=== PATIENT | female | born 1950 | race Caucasian/White ===

== ENCOUNTER → 2017-09-03 10:24 | Outpatient (CLI) | payer MEDICARE, SELFPAY ==
[2017-09-03 10:33] LABS: Bacteria 0 SEEN /hpf (None Seen); Red Blood Cells-Urine 0 SEEN /hpf (0-5)
[2017-09-03 12:33] LABS: Thyroid Stim Hormone (TSH) 3.77 uIU/mL (0.358-3.74)
[2017-09-03 18:28] LABS: Color, Urine Yellow (Yellow); Glucose, Dipstick Normal (Normal); Ketone-Dipstick Negative (Negative); Leukocyte Esterase-Dipstick 25 /ul (Negative); Nitrite-Dipstick Negative (Negative); Occult Blood-Urine Negative /ul (Negative); Protein-Dipstick Negative (Negative); Urine Bilirubin Dipstick Negative (Negative); Urine Clarity Clear (Clear); Urine Urobilinogen Normal (Normal)
[2017-09-03 19:00] LABS: Squamous Epithelial Cells - UA 0-5 SEEN /hpf (5-10)
[2017-09-03 19:01] LABS: Hyaline Cast 0-5 SEEN /lpf (0-5)
[2017-09-03 19:02] LABS: Mucous, Urine 1+ /hpf (<or=2+)
[2017-09-03 19:03] LABS: Transitional Epithelial - Ur 0-5 SEEN /hpf (0-5); White Blood Cells 0-5 SEEN /hpf (0-5)
== END ==
PROVIDERS: Visit Provider Internal Medicine Rheumatology
DX: E03.9 Hypothyroidism, unspecified (principal); R39.89 Other symptoms and signs involving the genitourinary system
CPT/HCPCS: 36415; 81001; 84443

== ENCOUNTER → 2017-09-24 12:55 | Outpatient (CLI) | payer MEDICARE, SELFPAY ==
--- NOTE | 2017-09-24 12:57 | BI_ITS ---
MAMMOGRAPHY - BILATERAL SCREENING REASON FOR EXAM: Female, 67 years old. Routine annual screening examination. PERTINENT HISTORY: Non-contributory. TECHNIQUE: Digital bilateral breast anusha (3D mammographic acquisition) in the CC and MLO projections. 2-D mediolateral oblique (MLO) and craniocaudad (CC) views of both breasts were obtained. CAD: Full Field Digital Mammography with Computer Added Detection was performed. COMPARISON: Comparison is made with prior study dated July 10, 2016 and March 01, 2015. FINDINGS: Breast Composition: There are scattered areas of fibroglandular density. There are no dominant masses or suspicious calcifications. No other significant abnormalities are identified. There has been no significant change since the prior study. BI/SCREENING MAMM (CAD), BILAT IMPRESSION: Stable bilateral screening mammogram. Yearly follow-up mammogram recommended. (A) ASSESSMENT CATEGORY: BIRADS Category 1: Negative. A letter regarding these results will be sent to the patient by the facility within 30 days. Approximately 10% of breast cancers are not detected by mammography. A normal mammogram should not delay biopsy of a clinically suspicious abnormality. [id number] Electronically Signed: Yvon Hamlin MD at 8:28 EDT Tel [phone], Service support ,
== END ==
DX: Z12.31 Encounter for screening mammogram for malignant neoplasm of breast (principal)
CPT/HCPCS: 77063; 77067

== ENCOUNTER 2017-10-17 13:00 | Outpatient (RCR) | payer MEDICARE, SELFPAY ==
--- NOTE | 2017-09-10 15:29 | HP.PTEVAL_ITS ---
Patient's Visit Information ABEL MUÑOZ I is a 67 year old F referred to Physical Therapy by Lobo WARD.RMASON with a diagnosis of Balance Problems. Date of Evaluation: 09/10/17 Physical Therapist: Alondra St - Visit Plan Frequency: 2x /Week Duration: 6 Weeks Plan: 2X/ week for 6 weeks to test on the NeuroCom, balance, curb steps, stepping over objects, LE strengtheing with HEP. - Subjective Subjective: Pt reports that she is losing her balance a lot. SHe has to lean against something or the railing especially if carrying something on the stairs. She has tripped several times and almost has gone down several times. Pt reports that she is worried about herself. On Sunday it was difficult for her to stand up from her chair and when she sat down it seemed like she just plopped. She is losing leg strength. SHe is not dizzy. She feels like her feet move to fast and she loses balancce or when going down a grade her top part is ahead of her feet. This has been a very gradual things that is getting worse. She lives alone but son stays over 2-3 X/ week as pt just lost her in Jun. Bed and bath are on the upper floor. She still drives. Curb steps: she feels she can do them as long as not too high. Dr Newsome said that PT can figure out the balance thing. SHe has been trapped inside a lot this winter. Pt is fatigued a lot of the time. Scale -0-10 fear of falling is 8/10. She has fallen about 3 times at least in the last 6 months. She reports that she has full sensation in her feet. 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 - Objective Gait: Walks with decreased stride and decreased heel to toe gait pattern. Some slight veering. Stiars: up and down recip with use of the railing with decreased toe clearence. FGA: . Sit to stand: able without the use of her UE's for support. LE MMT: hip abd B 4-/5, hip flex B 4/5, knee ext B 4/5, B knee flex B 4/5, able to heel and toe raise with UE support. Tight gastroc and HS complex B. - Balance Scores Functional Gait Assessment Score: 15 % Disability: 50.0000 - Goals Goal 1:: I HEP Goal Time Frame: 4-6 Weeks Goal 2:: Test the pt on the NeuroCOm Goal Time Frame: 4-6 Weeks Goal 3:: Be able to walk with normal gait pattern without catching toe with gait. Goal Time Frame: 4-6 Weeks Goal 4:: Increase LE strength by 1/2 muscle grade to be able to get up out of low chairs easier Goal Time Frame: 4-6 Weeks - Rehabilitation Potential Rehabilitation Potential: Good - Anticipated Interventions Patient/Client Instruction: Educate patient on: Condition For the Purpose of:: To improve nutrient delivery to tissue, To improve muscle performance and motor function, To improve ability to perform ADL's, To increase tolerance to activity/condition/position, To improve performance and independence with ADL's, To improve ability of physical actions for home/ community/work/leisure, To improve gait and locomotor functions, To improve health of tissue, To improve balance, To improve safety with gait Therapeutic Exercise to Include: Strength training, Balance training, Body mechanics, Flexibilty training, Gait and locomotor training, Neuromotor development, Passive ROM, Active ROM For the Purpose of:: To improve nutrient delivery to tissue, To improve muscle performance and motor function, To improve ability to perform ADL's, To increase tolerance to activity/condition/position, To improve performance and independence with ADL's, To improve ability of physical actions for home/ community/work/leisure, To improve gait and locomotor functions, To increase flexibility/ROM, To improve endurance, To improve balance, To improve safety with gait Functional Training to Include: Gait training For the Purpose of:: To improve gait and locomotor functions, To improve safety with gait Thank you for the opportunity to evaluate your patient. For Medicare and Medicare HMO plans, please review the plan of care and approve it. It will need to be FAXED BACK to us at [phone] for Medicare purposes. Please let me know if there are questions or concerns regarding this plan of care. Physician Signature: Date:
--- NOTE | 2017-09-19 13:52 | HP.PTCOM ---
PT Communication Note 09/19/[address] Lobo Newsome , Thank you for the referral of Wilda Lyles to our clinic. She was tested on our NeuroCom Equitest System today and enclosed are the patients test results. On the Sensory Organization Test (SOT) the pt has good used of her somatosensory system to help her maintain her balance. She has a little trouble with the use of her visual and vestibular systems to help her maintain her balance. Her center of gravity alignment is posterior and to the right. The Motor Control Test (MCT) demonstrated that the pt had an overall good reaction time to external pertubations. On the Limits of Stability Test (LOS) her overall ability to weight shift was within normal limits. At this point in time, I will be seeing the pt 2X/ week for at least 4 weeks to work on vestibular and visual inputs as well as functional balance and LE strengthening. Sincerely, Alondra St Contact Information
--- NOTE | 2017-10-17 13:29 | HP.PTDCSUM_ITS ---
HP - PT D/C Summary It has been my pleasure to treat ABEL MUÑOZ under orders from Lobo Newsome , for the diagnosis of Balance Problems for a total of 10 visit(s). Discharge Date: 10/17/17 Please see the following information for a summary of their discharge status. - Subjective Subjective: Some weeks are better than other. This week has been a good week. She is practicing going up and down stairs and she not banging into the wall anymore. She feels more confident with walking. 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 Pt reports that every once in awhile she still catches her toe with gait. She feels her confidence with balance has improved by 50% - Pain R shoulder Pain Intensity (Out of 10): 0 - Overall Improvement % Improvement: 75 - Objective Objective/Function: LE MMT: L hip abd 4-/5 and R 4+/5, B hip flex 4+/5, B knee ext and knee flex 4+/5 - Goals Goal 1:: I HEP Goal Progress: Goal Met Goal 2:: Test the pt on the NeuroCOm Goal Progress: Goal Met Goal 3:: Be able to walk with normal gait pattern without catching toe with gait. Goal Progress: Progressing Goal 4:: Increase LE strength by 1/2 muscle grade to be able to get up out of low chairs easier Goal Progress: Goal Met Goal 5:: Increase confidence with balance by 50% Goal Progress: Goal Met - Plan Plan: DC PT to HEp and gym memebership - D/C Information Discharge Comments: DC PT to [facility] program and HEP. If there are questions or concerns regarding this patient's physical therapy, please feel free to call me at [phone]. Thank you for the referral of this patient. Sincerely, Alondra St
== END 2017-10-17 19:00 | disposition home or self-care (01) ==
LOC: PT 13:00
DX: R27.9 Unspecified lack of coordination (principal)
CPT/HCPCS: 97110; 97161; 97530; 97750

== ENCOUNTER → 2018-04-24 10:50 | Outpatient (CLI) | payer MEDICARE, SELFPAY ==
[2018-04-24 12:12] LABS: Absolute Lymphocyte Count 2.34 X10^3/ul (0.83-4.51); Absolute Neutrophil Count 5.4 X10^3/uL (2.0-7.7); Basophil# 0.03 X10^3/uL; Basophil% 0.3 % (0-1); Eosinophil# 0.26 X10^3/uL; Hematocrit 44.1 % (37-47); Hemoglobin 14.1 g/dl (12.0-15.0); Lymphocyte # 2.34 X10^3/ul (4.0); Lymphocyte % 26.9 % (19-41); Mean Corpuscular Hgb 29.1 pg (27.0-32.0); Mean Corpuscular Volume 91.1 fL (81-99); Mean Platelet Vol. 10.4 fl (6.2-12.0); Monocyte# 0.61 X10^3/uL; Neutrophil # 5.44 X10^3/uL (2.7-7.7); Neutrophil % 62.6 % (47-70); Platelet Count 326 K/mm3 (150-450); RBC Distribution Width CV 14.8 % (11.6-14.6); RBC Distribution Width SD 48.8 fl (35.1-43.9); Red Blood Count 4.84 M/mm3 (4.2-5.4); White Blood Count 8.7 K/mm3 (4.4-11.0)
[2018-04-24 12:23] LABS: POSITIVE COUNT NO; POSITIVE DIFFERENTIAL NO; POSITIVE MORPHOLOGY NO
[2018-04-24 12:45] LABS: ALB/GLOB Ratio 0.9 RATIO (0.9-2.4); AST(SGOT) 15 U/L (15-37); Alanine Aminotransfer ALT/SGPT 24 U/L (13-56); Albumin, Serum 3.3 g/dL (3.2-5.0); Alkaline Phosphatase 87 U/L (45-117); Anion Gap 7 (5-15); BUN 14 mg/dL (7-18); BUN/Creat Ratio 16.8 RATIO (10-20); Calcium,Total 8.6 mg/dL (8.5-10.1); Chloride 106 mmol/L (98-107); Cholesterol 213 mg/dL (200); Creatinine, Serum 0.84 mg/dL (0.55-1.02); EST Glomerular Filtration Rate 72 mL/min (>60); Est Glom Filt Rate - Afr Amer 87 mL/min (>60); Globulin 3.5 g/dL (2.2-4.2); Glucose 74 mg/dL (74-106); High Density Lipoprotein 76 mg/dL; Potassium 4.4 mmol/L (3.5-5.1); Protein, Total 6.8 g/dL (6.4-8.2); Sodium Level 142 mmol/L (136-145); Thyroid Stim Hormone (TSH) 1.41 uIU/mL (0.358-3.74); Triglycerides 108 mg/dL; Very Low Density Lipoprotein 22 mg/dL (5-40)
== END ==
PROVIDERS: Referring Provider Family Medicine; Visit Provider Family Medicine
DX: Z00.00 Encounter for general adult medical examination without abnormal findings (principal); E03.9 Hypothyroidism, unspecified; M18.11 Unilateral primary osteoarthritis of first carpometacarpal joint, right hand
CPT/HCPCS: 36415; 80053; 80061; 84443; 85025; 97140; 97166

== ENCOUNTER 2018-05-30 09:00 | Outpatient (RCR) | payer MEDICARE, SELFPAY ==
--- NOTE | 2018-04-24 15:45 | HP.OTEVAL ---
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 Date of Evaluation: 04/24/18 Occupational Therapist: Kathryn Kilgore, SATHISH/Kolton, CHT - Subjective Subjective: pt. arrives after CMC arthroplasty. pt. had sx on 2017, so is now 5 wks. post-op. pt. reports that prior to sx it was difficult to complete any grasping motions for long periods of time. pt. specifically reported that peeling potatoes and sweeping were difficult prior to the sx. pt. arrived wearing splint. - Pain R wrist/hand 0 Pain Intensity Range: 0, 1, 2, 3, 4, 5, 6, 7, 8 - Objective Objective/Observation: some swelling through the dorsal aspect of hand - ROM Wrist: 40/45 of R, 80/60 of L MP: 0/35 of R, 0/70 of L IP: 0/55 of R, 0/68 of L ROM Comments: no pain with movement - Strength Utility Repairer: NT d/t 5 wks. post-op Lateral Pinch: NT d/t 5 wks. post-op Tripod Pinch: NT d/t 5 wks. 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 by completing strengthening exercises and stretches in order to complete BADL?s and IADL?s. Patient will improve lateral and tripod grasps by 10 lbs. by completing strengthening and stretching exercises in order to complete BADL?s and IADL?s. Goal:: Patient will increase ROM in MP/IP joint of R thumb in order to make a full composite fist by completing strengthening and stretching exercises in order to complete BADL?s and IADL?s. Patient will increase ROM in R wrist by 15 degrees for increased I with BADL's and IADL's. Goal:: Patient will have decreased swelling and report overall decrease in pain of <4 in order to complete BADL?s and IADL?s. Goal:: Patient will demo understanding of joint protection and ECM recommendations for increase I with BADL?s and IADL?s. Goal:: Patient will demo understanding of CMC arthroplasty protocol for increased I with BADL's and IADL's. - Rehabilitation General Assessment: Patient presents after having CMC arthroplasty of the abductor pollicis longus, FXR, intrinsics, and R wrist extensor d/t pt.having unilateral Primary OA 1st Carpomc of R hand. Patient presents today with decreased strength, ROM, increased pain, and decreased ability to complete BADL's and IADL's. pt. will benefit from OT services 2x/wk for 4 wks. Today pt. was educated about exercises she can complete at home, edema management, skin care, and wearing brace at home. Rehabilitation Potential: Good - Anticipated Interventions Anticipated Interventions: A/AAROM/PROM, Strengthening, Triggerpoint Release, Modalities, Orthoses, Joint Protection/Energy Conservation, Ergonomic Education, ADL Training, Home Program - Visit Plan Frequency: 2x /Week Duration: 4 Weeks TEXT: Thank you for the opportunity to evaluate your patient. For Medicare and Medicare HMO plans, please review the plan of care and approve it. It will need to be FAXED BACK to us at [phone] for Medicare purposes. Please let me know if there are questions or concerns regarding this plan of care. Physician Signature: Date:
--- NOTE | 2018-05-10 07:53 | HP.OTREVAL ---
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 Please see the progress note below for an update on the occupational therapy plan of care! Subjective: pt. arrives and reports that fluidotherapy was helpful and that she is slightly nervous about not wearing a brace anymore. Objective/Function: pt. reported that she is not having pain any longer and has started the strengthening process. patient demo ability to squeeze light theraputty. patient is progressing and starting to complete more functional tasks at home. pt. educated on use of comfort cool and CMC brace for home use. Plan Frequency: 2x /Week Duration: 4 Weeks Plan: cont HEP. theraputty (playdoh). 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 by completing strengthening exercises and stretches in order to complete BADL?s and IADL?s. Patient will improve lateral and tripod grasps by 10 lbs. by completing strengthening and stretching exercises in order to complete BADL?s and IADL?s. Goal:: Patient will increase ROM in MP/IP joint of R thumb in order to make a full composite fist by completing strengthening and stretching exercises in order to complete BADL?s and IADL?s. Patient will increase ROM in R wrist by 15 degrees for increased I with BADL's and IADL's. Goal:: Patient will have decreased swelling and report overall decrease in pain of <4 in order to complete BADL?s and IADL?s. Goal:: Patient will demo understanding of joint protection and ECM recommendations for increase I with BADL?s and IADL?s. Goal:: Patient will demo understanding of CMC arthroplasty protocol for increased I with BADL's and IADL's. Anticipated Interventions Anticipated Interventions: A/AAROM/PROM, Strengthening, Triggerpoint Release, Modalities, Orthoses, Joint Protection/Energy Conservation, Ergonomic Education, ADL Training, Home Program Please do not hesitate to contact me at [phone] by phone or if you have questions or concerns regarding this new plan of care! Sincerely, Kathryn Kilgore, OTR/L, CHT
--- NOTE | 2018-08-05 14:52 | HP.OT.NRP ---
HP - Discharge Summary - Patient Information ABEL MUÑOZ was seen in my office for initial evaluation on 04/24/18. The following Plan of Care was established for this patient: Initial Frequency: 2x /Week Initial Duration: 4 Weeks Plan: cont HEP. theraputty (playdoh). squeeze wash rags - Anticipated Interventions Anticipated Interventions: A/AAROM/PROM, Strengthening, Triggerpoint Release, Modalities, Orthoses, Joint Protection/Energy Conservation, Ergonomic Education, ADL Training, Home Program This patient was last seen in our office 05/30/18. Pertinent comments regarding their Occupational therapy will appear below: Pt was seen for 11 OT sessions following a CMC arthroplasty. pt progressed well and PRE were initiated. Pt demo understanding of her HEP. pt has not scheduled any further apts. pt is d/c at this time due to timelapse in services. At this point I will be discontinuing this patient from occupational therapy. I would be happy to see this patient again in the future if found appropriate by the physician. Thank you! Kathryn Kilgore, OTR/L, CHT
== END 2018-05-30 19:00 | disposition home or self-care (01) ==
LOC: OT 09:00
PROVIDERS: Referring Provider Orthopaedic Surgery; Visit Provider Orthopaedic Surgery
DX: M18.11 Unilateral primary osteoarthritis of first carpometacarpal joint, right hand (principal)
CPT/HCPCS: 97110; 97140; 97166; 97168; 97530

== ENCOUNTER 2018-07-29 10:53 | Emergency (ER) | payer MEDICARE, SELFPAY ==
[2018-07-29 10:54] VITALS: BP 125/89; PULSE 77; RESP 16; TEMP 37.2; O2SAT 98; BMI 33.3
--- NOTE | 2018-07-29 12:03 | ED.DCSUM_ITS ---
- ER Visit Summary Date of Service: 07/29/18 Chief Complaint: Bilateral leg pain History of Present Illness: The patient is a 68 F who presents for 2 weeks of bilateral lower leg pain, worse for the last 2 days. Patient states yesterday she cannot stand for more than 2 minutes at work. She was also having pain in her lower back. Since yesterday patient has had a cough and has felt hot. She went to urgent care and was told she had a fever of 100.9 and referred to the emergency department for further workup. Patient has been on Bactrim and Keflex from a left ring finger paronychia since July 22. She is currently still on antibiotics. She did get the flu shot this year. She denies any chest pain, URI symptoms other than the cough, abdominal pain, nausea or vomiting, diarrhea, urinary symptoms. Patient has history of osteoarthritis but states her leg pain seems more diffuse than just the joints. Physical Examination: Vital signs: afebrile, hemodynamically stable, no hypoxia on room air General: well nourished, well developed, in no distress Skin: warm, dry, no rash, no pallor HEENT: normocephalic and atraumatic; PERRL, EOMI, moist mucous membranes Cardiovascular: regular rate and rhythm without murmurs, no peripheral edema, 2+ pulses all distal extremities Respiratory: No increased work of breathing, lungs are clear to auscultation bilaterally, no rales, rhonchi or wheezing Abdominal: Abdomen is soft, nontender with normoactive bowel sounds, no guarding or rebound, no masses Back: No midline deformities or tenderness. No paraspinal tenderness. MSK: Moves all extremities, no deformities, well-healed surgical incisions over both knees, no joint erythema, induration, warmth, or painful range of motion. Lower extremity musculature is nontender to palpation. Normal strength Neuro: Awake and alert, oriented ?4. No facial droop, sensation and motor function intact and symmetric Test Results: Microbiology Past 72 Hours 07/29/18 12:05 Mucosa - Nose Influenza Types A,B Direct FA (NOAH) - Final Influenzae A Laboratory Results 07/29/18 12:10: WBC 7.0, RBC 4.43, Hgb 12.6, Hct 39.5, MCV 89.2, MCH 28.4, MCHC 31.9 L, RDW 14.3, RDW Differential 46.9 H, Plt Count 260, MPV 10.2, Immature Gran % (Auto) 0.700, Neut % (Auto) 83.5 H, Lymph % (Auto) 6.2 L, Woodward % (Auto) 6.0, Eos % (Auto) 3.3, Baso % (Auto) 0.3, Absolute Neuts (auto) 5.8, Absolute Lymphs (auto) 0.43 L, Total Counted Not Reportable, Differential Comment COMMENT, ESR 22 07/29/18 12:10: Sodium Cancelled, Potassium Cancelled, Chloride Cancelled, Carbon Dioxide Cancelled, Anion Gap Cancelled, BUN Cancelled, Creatinine Cancell ed, Estim Creat Clear Calc Cancelled, Est GFR (MDRD) Af Amer Cancelled, Est GFR (MDRD) Non-Af Cancelled, BUN/Creatinine Ratio Cancelled, Glucose Cancelled, Calcium Cancelled, C-React Prot Ext Range Cancelled 07/29/18 12:20: Urine Color Yellow, Urine Clarity Clear, Urine pH 6.0, Ur Specific Horner 1.020, Urine Protein 30 H, Urine Glucose (UA) Normal, Urine Ketones 5 H, Urine Occult Blood 25 H, Urine Nitrite Negative, Urine Bilirubin 1 H, Urine Urobilinogen Normal, Ur Leukocyte Esterase 25 H, Urine RBC 0-5 SEEN, Urine WBC 0 SEEN, Ur Squamous Epith Cells 0 SEEN, Urine Bacteria RARE, Urine Mucus 0 SEEN, Urine Yeast RARE 07/29/18 12:45: Sodium 137, Potassium 4.6, Chloride 109 H, Carbon Dioxide 22.0, Anion Gap 6, BUN 11, Creatinine 0.88, Estim Creat Clear Calc 47.72, Est GFR (MDRD) Af Amer 83, Est GFR (MDRD) Non-Af 68, BUN/Creatinine Ratio 12.6, Glucose 79, Calcium 7.8 L, C-React Prot Ext Range 62.50 H Medications Given Discontinued Medications Sodium Chloride () 1,000 mls @ 1,000 mls/hr IV .Q1H ONE Stop: 07/29/18 12:56 Last Admin: 07/29/18 12:04 Dose: 1,000 mls/hr Oseltamivir Phosphate (Tamiflu) 75 mg PO X1 ONE Stop: 07/29/18 14:01 Emergency Department Course and Treatment: Patient presents with 2 days of worsening myalgias, subjective fever last night, and a cough that started last night. She was febrile at urgent care. Recheck in the emergency department showed a low-grade fever. Workup was performed, showing no leukocytosis, no lecture light derangements, urine negative for infection. Patient was swabbed for the flu and was positive for influenza A. Thus her worsening acute on chronic back and leg pain is likely myalgias associated with the flu. Patient received IV fluids and felt better. Since her symptom onset with the acute worsening was within 48 hours, patient was amenable to taking Tamiflu. First dose was given in the emergency the same. Discharged home. Treatment Plan: [] Disposition: [] Impression: Influenza A This note was generated with [employer] dictation software. It may contain incorrect words, spelling, and punctuation that were not noted in review of the chart prior to signing ED Disposition - Plan for ED Patient: Disposition: Home or Assisted Living Instructions: ED Flu Prescriptions: Oseltamivir Phosphate [Tamiflu] 75 mg PO BID #9 cap Referrals: Lobo Newsome [Primary Care Provider] - 1 Week if not improving Additional Instructions: You have the flu. Drink plenty of fluids to stay hydrated. Use [id number] pain medication as needed for fever and discomfort. Take the Tamiflu twice daily as prescribed. You were given the first dose in the emergency department, so he will take the next dose tomorrow morning. If you have any worsening of your condition or any new concerning symptoms, please return immediately to the emergency department for another evaluation.
[2018-07-29] MEDS: 0.9% Normal Saline 1,000 ML 1000 ML IV (12:04)
[2018-07-29 12:11] VITALS: TEMP 37.9
[2018-07-29 12:23] LABS: Erythrocyte Sedimentation Rate 22 mm/hr (0-30)
[2018-07-29 12:29] LABS: Absolute Lymphocyte Count 0.43 X10^3/ul (0.83-4.51); Absolute Neutrophil Count 5.8 X10^3/uL (2.0-7.7); Basophil# 0.02 X10^3/uL; Basophil% 0.3 % (0-1); Eosinophil# 0.23 X10^3/uL; Eosinophils% 3.3 % (0-5); Hematocrit 39.5 % (37-47); Hemoglobin 12.6 g/dl (12.0-15.0); Lymphocyte # 0.43 X10^3/ul (4.0); Lymphocyte % 6.2 % (19-41); Mean Corp Hgb Conc 31.9 g/gl (32-36); Mean Corpuscular Hgb 28.4 pg (27.0-32.0); Mean Corpuscular Volume 89.2 fL (81-99); Mean Platelet Vol. 10.2 fl (6.2-12.0); Monocyte# 0.42 X10^3/uL; Neutrophil # 5.82 X10^3/uL (2.7-7.7); Neutrophil % 83.5 % (47-70); Platelet Count 260 K/mm3 (150-450); RBC Distribution Width CV 14.3 % (11.6-14.6); RBC Distribution Width SD 46.9 fl (35.1-43.9); Red Blood Count 4.43 M/mm3 (4.2-5.4)
[2018-07-29 12:31] LABS: Differential Indicated SCAN CRITERIA MET; POSITIVE COUNT NO; POSITIVE DIFFERENTIAL YES; POSITIVE MORPHOLOGY NO
[2018-07-29 12:35] LABS: Mucous, Urine 0 SEEN /hpf (<or=2+); Squamous Epithelial Cells - UA 0 SEEN /hpf (5-10); White Blood Cells 0 SEEN /hpf (0-5)
[2018-07-29 12:39] LABS: Color, Urine Yellow (Yellow); Glucose, Dipstick Normal (Normal); Ketone-Dipstick 5 mg/dl (Negative); Leukocyte Esterase-Dipstick 25 /ul (Negative); Nitrite-Dipstick Negative (Negative); Occult Blood-Urine 25 /ul (Negative); Protein-Dipstick 30 mg/dl (Negative); Urine Clarity Clear (Clear); Urine Urobilinogen Normal (Normal)
--- NOTE | 2018-07-29 12:49 | ED.RN ---
POS FLU A CALLED FROM THE LAB. DR ORO AWARE
[2018-07-29 12:51] LABS: Urine Bilirubin Dipstick 1 mg/dL (Negative)
[2018-07-29 12:57] LABS: Bacteria RARE /hpf (None Seen); Red Blood Cells-Urine 0-5 SEEN /hpf (0-5)
[2018-07-29 12:58] LABS: Yeast-Urine RARE /hpf (None Seen)
[2018-07-29 13:12] VITALS: BP 158/65; PULSE 72; RESP 16; O2SAT 98
[2018-07-29 13:21] LABS: Anion Gap 6 (5-15); BUN 11 mg/dL (7-18); BUN/Creat Ratio 12.6 RATIO (10-20); Calcium,Total 7.8 mg/dL (8.5-10.1); Chloride 109 mmol/L (98-107); Creatinine, Serum 0.88 mg/dL (0.55-1.02); EST Glomerular Filtration Rate 68 mL/min (>60); Est Glom Filt Rate - Afr Amer 83 mL/min (>60); Estimated Creatinine Clearance 47.72 ml/min; Glucose 79 mg/dL (74-106); Potassium 4.6 mmol/L (3.5-5.1); Sodium Level 137 mmol/L (136-145)
[2018-07-29] MEDS: Oseltamivir Phosphate 75 MG Capsule PO (14:10)
== END 2018-07-29 14:12 | disposition home or self-care (01) ==
PROVIDERS: Emergency Provider Emergency Medicine
DX: J09.X2 Influenza due to identified novel influenza A virus with other respiratory manifestations (principal); M19.90 Unspecified osteoarthritis, unspecified site; F32.9 Major depressive disorder, single episode, unspecified; F41.9 Anxiety disorder, unspecified; E03.9 Hypothyroidism, unspecified; Z79.2 Long term (current) use of antibiotics; Z79.899 Other long term (current) drug therapy
CPT/HCPCS: 80048; 81001; 85025; 85652; 86140; 87086; 87804; 96360; 99284; J7030; A4216

== ENCOUNTER 2019-01-03 07:01 | Emergency (ER) | payer MEDICARE, SELFPAY ==
[2019-01-03] VITALS (7 sets, daily range): BP systolic 104–154; BP diastolic 50–85; PULSE 62–76; RESP 18–27; TEMP 37.2–38.6; O2SAT 93–100; BMI 34.4
--- NOTE | 2019-01-03 07:28 | EKG12_ITS ---
Test Reason : Blood Pressure : / mmHG Vent. Rate : 077 BPM Atrial Rate : 077 BPM P-R Int : 140 ms QRS Dur : 084 ms QT Int : 440 ms P-R-T Axes : 066 009 076 degrees QTc Int : 497 ms Normal sinus rhythm Nonspecific ST abnormality Prolonged QT Abnormal ECG Confirmed by NIELS CLEMENT, PÉREZ ([id number]), news assignment editor ZHENG MORAN ([id number]) on 01/06/2019 1:45:45 PM Referred By: МАРИНА Confirmed By:МАРИЯ BOWSER MD
[2019-01-03] MEDS: 0.9% Normal Saline 1,000 ML 999 ML IV (07:54)
[2019-01-03] MEDS: Ondansetron 4 MG/2 ML Vial IV (07:54)
[2019-01-03] MEDS: Acetaminophen 500 MG Tablet 1000 MG PO (07:54)
--- NOTE | 2019-01-03 08:13 | RAD_ITS ---
STUDY: X-RAY CHEST REASON FOR EXAM: Female, 68 years old. Substernal chest pain TECHNIQUE: PA and lateral views of the chest. COMPARISON: 02/22/2015 FINDINGS: EKG leads overlie the chest The lungs are clear and expanded. There is no demonstrated pleural abnormality. Normal size heart. Normal mediastinum and jyotsna. Normal visualized pulmonary arteries. Normal visualized aortic arch and descending thoracic aorta. There are diffuse degenerative changes of the visualized thoracic spine. Normal visualized ribs, clavicles, and shoulders. There is no demonstrated abnormality of the visualized soft tissue structures of the upper abdomen. RAD/Chest PA and Lateral IMPRESSION: No acute pulmonary process Electronically Signed: Satish Hobbs MD at 8:31 EDT , Service support ,
--- NOTE | 2019-01-03 08:46 | ED.VISSUMM ---
- ER Visit Summary Date of Service: 01/03/19 Chief Complaint: Vomiting History of Present Illness: The patient is a 68 F who presents emergency department with nausea and vomiting. Patient states that on Sunday she developed nausea vomiting diarrhea. She has had no diarrhea since. She states that nausea and vomiting has continued. Now she feels very anxious and panicky. She states she has generalized myalgias a slight cough and a fever. She notes a epigastric abdominal pain. She tells me it does not radiate. Physical Examination: Oral temperature 101.7 heart rate 62 respirations are 17 pulse ox 98% on room air blood pressure 115/85 Gen: Well-nourished well-developed Head: Normocephalic atraumatic Eyes: Perrl EOMI ENT: TMs clear no rhinorrhea moist mucous membranes Neck: Supple no lymphadenopathy no JVD nontender CVS: Regular rate rhythm no murmurs normal S1-S2 Respiratory: No distress clear to auscultation bilaterally chest nontender Abdomen: Soft oddly tender in the epigastrium nondistended normal bowel sounds no masses Back: Nontender Extremity: Nontender no edema Skin: Normal color no rash Neuro: alert orientated ?3 CN II-XII intact normal strength sensation reflexes gait cerebellar Psych: Anxious Test Results: EKG shows a normal sinus rhythm at a rate of 77. White count 10.3 with 81.1 neutrophils. Sodium 133. Liver lipase negative. Acid normal at 1.1. Chest x-ray showed no acute disease. CT the pelvis showed some atelectatic changes in the left lung otherwise negative. Emergency Department Course and Treatment: Tylenol Zofran and IV fluids. She is feeling better. No further vomiting. Body aches have stopped. Her anxiety is improved. He states now she feels fatigued. Her cough is very minimal and per her shallow. I think the changes seen on CT on the left lung is most likely atelectasis less likely to be infiltrate. Patient feels comfortable with antiemetics at home fever control and oral hydration. She will return if new symptoms are not improving. Impression: 1. Fever 2. Vomiting This note was generated with [employer] dictation software. It may contain incorrect words, spelling, and punctuation that were not noted in review of the chart prior to signing ED Disposition - Plan for ED Patient: Disposition: Home or Assisted Living Instructions: VOMITING (6y-Adult) Prescriptions: Ondansetron [Zofran Odt] 4 mg PO Q6H PRN PRN #14 tab PRN Reason: Nausea Prescription Printed Referrals: Lobo Newsome [Primary Care Provider] - 3-5 Days
[2019-01-03 08:48] LABS: Absolute Lymphocyte Count 1.08 X10^3/uL (0.83-4.51); Absolute Neutrophil Count 8.3 X10^3/uL (2.0-7.7); Basophil# 0.04 X10^3/uL; Basophil% 0.4 % (0-1); Hemoglobin 13.8 g/dL (12.0-15.0); Lymphocyte # 1.08 X10^3/ul (4.0); Lymphocyte % 10.5 % (19-41); Mean Corp Hgb Conc 32.9 g/dL (32-36); Mean Corpuscular Hgb 27.8 pg (27.0-32.0); Mean Corpuscular Volume 84.5 fL (81-99); Mean Platelet Vol. 10.1 fl (6.2-12.0); Monocyte# 0.75 X10^3/uL; Monocyte% 7.3 % (0-10); NRBC Flagged by Analyzer 0 % (0-5); Neutrophil # 8.32 X10^3/uL (2.7-7.7); Neutrophil % 81.1 % (47-70); Platelet Count 267 K/mm3 (150-450); RBC Distribution Width CV 13.4 % (11.6-14.6); RBC Distribution Width SD 41.4 fl (35.1-43.9); Red Blood Count 4.97 M/mm3 (4.2-5.4); White Blood Count 10.3 K/mm3 (4.4-11.0)
[2019-01-03 09:04] LABS: Lipase 91 U/L (73-393)
[2019-01-03 09:09] LABS: ALB/GLOB Ratio 0.8 RATIO (0.9-2.4); AST(SGOT) 23 U/L (15-37); Alanine Aminotransfer ALT/SGPT 28 U/L (13-56); Albumin, Serum 3.2 g/dL (3.2-5.0); Alkaline Phosphatase 118 U/L (45-117); Anion Gap 10 (5-15); BUN 10 mg/dL (7-18); BUN/Creat Ratio 10.3 RATIO (10-20); Calcium,Total 8.7 mg/dL (8.5-10.1); Chloride 100 mmol/L (98-107); Creatinine, Serum 0.97 mg/dL (0.55-1.02); EST Glomerular Filtration Rate 60 mL/min (>60); Est Glom Filt Rate - Afr Amer 73 mL/min (>60); Estimated Creatinine Clearance 43.29 ml/min; Globulin 3.9 g/dL (2.2-4.2); Glucose 84 mg/dL (74-106); Potassium 3.7 mmol/L (3.5-5.1); Protein, Total 7.1 g/dL (6.4-8.2); Sodium Level 133 mmol/L (136-145)
[2019-01-03 09:15] LABS: International Normalized Ratio 1.2; Prothrombin Time (Protime)PT. 14.7 SECONDS (11.7-14.9)
[2019-01-03 09:16] LABS: Partial Thromboplast Time 35.2 Seconds (24.1-36.2)
--- NOTE | 2019-01-03 09:20 | CT_ITS ---
STUDY: CT ABDOMEN AND PELVIS WITH CONTRAST REASON FOR EXAM: Female, 68 years old. Abdominal pain, nausea and vomiting RADIATION DOSAGE (If Supplied By Facility): CTDIvol = ( 17.98 ) mGy, DLP = ( 941.11 ) mGycm TECHNIQUE: Transaxial images were obtained from the dome of the diaphragm to the symphysis pubis without oral contrast. 100mL IV Isovue 300 was administered. Sagittal and coronal images were reconstructed. Individualized dose optimization techniques were used for this CT. COMPARISON: None. FINDINGS: Lung bases show opacifications in the left lung base likely atelectasis but infiltrate cannot be excluded. Follow-up recommended to assure resolution. The visualized portions of the heart are within normal limits. Normal liver. There are surgical clips in the gallbladder fossa consistent with a prior cholecystectomy. Normal spleen. Normal pancreas. Normal bilateral adrenal glands. Normal right kidney. Normal left kidney. There is a small hiatal hernia. Normal small intestine. Retained stool noted throughout the colon. There is non-visualization of the appendix. Normal abdominal aorta. Normal inferior vena cava. Normal retroperitoneum. Normal urinary bladder. Uterus is still present, the endometrium cannot be directly evaluated with CT. No suspicious cystic mass or free fluid Normal abdominal wall. Bony structures show degenerative change. Replaced left hip joint demonstrates anatomic alignment with no plain film evidence of hardware complication. There is severe arthritic changes in the right hip with subchondral cyst formation in the femoral head and acetabulum suggestive of AVN. CT/Abdomen/Pelvis W IV Cont ONLY IMPRESSION: No suspicious solid organ abnormality, previous cholecystectomy. No CT evidence of an acute inflammatory process Retained stool in the colon Uterus is still present Small hiatal hernia Degenerative bony changes with severe right hip arthrosis and CT changes of AVN. Electronically Signed: Satish Hobbs MD at 9:58 EDT , Service support ,
[2019-01-03 09:27] LABS: Lactic Acid 1.1 mmol/L (0.4-2.0)
[2019-01-03] MEDS: 0.9% Normal Saline 1,000 ML 150 ML IV (09:46)
--- NOTE | 2019-01-03 09:54 | NURSING ---
pt had RN call son Manoj: [phone] to give update; left message
[2019-01-03 10:40] LABS: Bacteria 0 SEEN /hpf (None Seen); Mucous, Urine 0 SEEN /hpf (<or=2+); Red Blood Cells-Urine 0 SEEN /hpf (0-5)
[2019-01-03 10:48] LABS: Color, Urine Yellow (Yellow); Glucose, Dipstick Normal (Normal); Ketone-Dipstick 50 mg/dl (Negative); Leukocyte Esterase-Dipstick 25 /ul (Negative); Nitrite-Dipstick Negative (Negative); Occult Blood-Urine Negative /ul (Negative); Protein-Dipstick Negative (Negative); Urine Bilirubin Dipstick Negative (Negative); Urine Clarity Clear (Clear); Urine Urobilinogen Normal (Normal)
[2019-01-03 10:57] LABS: Squamous Epithelial Cells - UA 0-5 SEEN /hpf (5-10); White Blood Cells 0-5 SEEN /hpf (0-5)
== END 2019-01-03 11:35 | disposition home or self-care (01) ==
PROVIDERS: Emergency Provider Emergency Medicine
DX: R50.9 Fever, unspecified (principal); R11.2 Nausea with vomiting, unspecified
CPT/HCPCS: 36415; 71046; 74177; 80053; 81001; 83605; 83690; 85025; 85610; 85730; 87040; 87086; 87088; 93005; 96361; 96374; 99285; J7030; Q9967; A4216; J2405

== ENCOUNTER 2019-02-07 08:45 | Outpatient (RCR) | payer MEDICARE, SELFPAY ==
[2019-01-03 07:03] VITALS: BMI 34.4
[2019-01-10 08:52] VITALS: BP 152/73; PULSE 64; RESP 16; TEMP 36.8; BMI 34.0
--- NOTE | 2019-01-10 10:35 | HP.PCM_ITS ---
(1) Deep dehiscence of operation wound Status: Acute Current Visit: Yes Code(s): T81.32XA - Disruption of internal operation (surgical) wound, not elsewhere classified, initial encounter (2) Non-healing surgical wound Status: Acute Current Visit: Yes Code(s): T81.89XA - Other complications of procedures, not elsewhere classified, initial encounter (3) Osteoarthritis deformans Status: Acute Current Visit: Yes Code(s): M19.90 - Unspecified osteoarthritis, unspecified site History of Present Illness Date of Service: 01/10/19 Chief Complaint: Follow-up on a left anterior hip dehisced surgical wound History of Wound: 38-year-old white female that had left hip replacement surgery back in early November with an anterior entrance. Developed a dehisced wound at the distal end of the wound. Patient has been packing with Mesalt and seeing her regular surgeon weekly that finally referred her here. The area is extremely small deep dehisced area that looks clean there is no sign of redness pus does drain blood. Will obtain cultures today and start treatments with Aquacel roping. Past Medical History Past Medical History: Dehisced surgical wound left anterior hip Allergies/Adverse Reactions: Allergies No Known Allergies Allergy (Verified 01/03/19 07:03) Home Medications: Ambulatory Orders Medication Instructions Recorded Duloxetine Hcl [Cymbalta] 120 mg PO DAILY 07/29/18 Hydroxychloroquine Sulfate 200 mg PO DAILY 07/29/18 [Plaquenil] Levothyroxine Sodium [Synthroid] 100 mcg PO DAILY 07/29/18 buPROPion XL [Wellbutrin Xl] 450 mg PO DAILY 07/29/18 Ondansetron [Zofran Odt] 4 mg PO Q6H PRN PRN #14 tab 01/03/19 Lives: Spouse/ Significant Other Smoking Status: Never smoker Review of Systems Constitutional: Denies: Chills, Fever Eyes: Denies: Blurred vision, Drainage, Pain HEENT: Denies: Difficulty Hearing, Difficulty Swallowing, Sore Throat, Visual Changes Cardiovascular: Denies: Chest Pain, Palpitations, Syncope Respiratory: Denies: Cough, Shortness of Breath Gastrointestinal: Denies: Abdominal Pain, Nausea, Vomiting Genitourinary: Denies: Dysuria, Frequency Musculoskeletal: Denies: Joint Pain, Muscle pain Skin: Denies: Jaundice, Rash Neurological: Denies: Balance problems, Change in Speech, Difficulty swallowing, Focal weakness Psychiatric: Denies: Anxiety, Depression Endocrine: Denies: Change in Body Habitus Hematologic/ Lymphatic: Denies: Adenopathy - Physical Exam Vital Signs Temp Pulse Resp BP 98.2 F 64 16 152/73 H 01/10/19 08:52 01/10/19 08:52 01/10/19 08:52 01/10/19 08:52 General: Oriented x3, Cooperative, Well developed HEENT: Atraumatic, PERRLA Oral: Moist Mucosa Neck: Supple, No JVD Lungs: Clear to auscultation, Normal air movement Cardiovascular: Regular rate, Regular Rhythm Abdomen: Bowel Sounds Present, Soft, Non Tender, No Hepato-splenomegaly Extremities: No clubbing, No edema Skin: Ulcer/ Wound - Dehisced surgical anterior left hip wound Wound Measurements and Assessment WC - Nurse 1 - General Ulcer Measurement Start: 01/10/19 08:52 Freq: Status: Active Protocol: Activity Type Activity Date Activity User E-Sign Co-Sign Detail Recorded Client Recorded Date Recorded By Document 01/10/19 08:52 DV [id number] 01/10/19 09:25 DV 01/10/19 08:52 Wound Center Nurse 1 [Ulcer Assessment] #1 Anterior Left Hip -Combined with other wound No -Current Size (cm) - Length 1.0 -Current Size (cm) - Width 0.6 -Current Size (cm) - Depth 1.5 -Total Square Cm 0.60 -Date of Last Picture (Recall this 01/10/19 field) -Epithelialization None Present -Tunneling No -Undermining/Tunneling No -Circular Undermining No -Classification - Thickness Full Thickness without Exposed Support Structure -Exudate Amt Large -Exudate Type Sanguineous -Wound Margin Indistinct, Non -Visible -Granulation Amt None Present (0 %) -Granulation Quality N/A -Slough/Fibrin Yes -Necrosis Amt Large (67-100%) -Necrotic Tissue Type Adherent Slough -Structure Exposed None/Limited to Skin Breakdown -Texture (Ruthy-wound Skin Appearance) Assessed, Localized Edema ,Scarring -Moisture (Ruhty-wound Skin Appearance Assessed, ) Weeping -Color (Ruthy-wound Skin Appearance) Assessed -Temperature (Ruthy-wound Skin No Abnormality Appearance) (Pt Warm) -Tenderness on Palpation (Ruthy-wound No Skin Appearance) -Foul Odor after Cleansing No -Anesthetic Used 5% Lidocaine Gel WC - Nurse 2 - General Ulcer CM Notes Start: 01/10/19 08:52 Freq: Status: Active Protocol: Activity Type Activity Date Activity User E-Sign Co-Sign Detail Recorded Client Recorded Date Recorded By Document 01/10/19 09:44 MW [id number] 01/10/19 09:49 MW 01/10/19 09:44 Wound Center Nurse 2 [Procedure/Treatment] -Time 09:45 -Correct Patient Yes -Correct Side, Site, Position Yes -Correct Procedure Yes -Procedure Performed Yes -Type of Procedure Debridement -Clinical Debridement Subcutaneous -Post Debridement Size (cm) - Length 1.0 -Post Debridement Size (cm) - Width 0.6 -Post Debridement Size (cm) - Depth 2.0 -Total Square Cm 0.60 -Wound/Ulcer Outcome Not Healed -Ulcer Cleansing Rinsed/ Irrigated with Saline -Foul Odor after Cleansing No -Bioengineered Tissue No -Bleeding Controlled with Pressure -Offloading No -Treatment Response Procedure Tolerated Well [See Physician Procedure note for Specifics] Pain Scale: 0-10 Numeric [Pain] -Is Patient Pain Free? Yes Musculoskeletal: No Tenderness to Palpation of Joints or Extremities Lymphatic: No Cervical, Supraclavicular, or Inguinal Adenopathy Neurological: Cranial nerves II-XII grossly intact, Neuro grossly intact Psych/Mental Status: Normal Affect, Appropriate, Alert and oriented to time, linden ce, person, mood and affect Debridement Note Post-Debridement Measurements/Treatment WC - Nurse 2 - General Ulcer CM Notes Start: 01/10/19 08:52 Freq: Status: Active Protocol: Activity Type Activity Date Activity User E-Sign Co-Sign Detail Recorded Client Recorded Date Recorded By Document 01/10/19 09:44 MW [id number] 01/10/19 09:49 MW 01/10/19 09:44 Wound Center Nurse 2 #1 Anterior Left Hip -Time 09:45 -Correct Patient Yes -Correct Side, Site, Position Yes -Correct Procedure Yes -Procedure Performed Yes -Type of Procedure Debridement -Clinical Debridement Subcutaneous -Post Debridement Size (cm) - Length 1.0 -Post Debridement Size (cm) - Width 0.6 -Post Debridement Size (cm) - Depth 2.0 -Total Square Cm 0.60 -Wound/Ulcer Outcome Not Healed -Ulcer Cleansing Rinsed/ Irrigated with Saline -Foul Odor after Cleansing No -Bioengineered Tissue No -Bleeding Controlled with Pressure -Offloading No -Treatment Response Procedure Tolerated Well Pain Scale: 0-10 Numeric Is Patient Pain Free? Yes Wound debrided: Left hip anterior surgical dehisced wound Type of Debridement: Excisional debridement Anesthesia Used: 5% Lidocaine Gel Depth: Down to and including healthy tissue, in the subcutaneous layer Percentage of wound debrided: 100 Instrument Used: 5mm curette Tissue Removed: Fibrin Severity: Fat Layer Exposed Amount of bleeding with debridement: Mild Assessment/Plan Opaque and anaerobic cultures obtained Active Problems Deep dehiscence of operation wound (Acute) Non-healing surgical wound (Acute) Osteoarthritis deformans (Acute) Assessment: Nonhealing surgical wound. Dehisced surgical wound left hip. History of osteoarthritis treated with Plaquenil Plan: Wash area with antibacterial soap. Pack with Aquacel roping every day. Cover with gauze and tape. Follow-up in 1 week. Call with culture results
[2019-01-17 08:23] VITALS: BP 140/63; PULSE 70; RESP 18; TEMP 36.5; BMI 34.0
--- NOTE | 2019-01-17 09:21 | PCM.WC.PN ---
(1) Deep dehiscence of operation wound Status: Acute Current Visit: Yes Code(s): T81.32XA - Disruption of internal operation (surgical) wound, not elsewhere classified, initial encounter (2) Non-healing surgical wound Status: Acute Current Visit: Yes Code(s): T81.89XA - Other complications of procedures, not elsewhere classified, initial encounter (3) Osteoarthritis deformans Status: Acute Current Visit: Yes Code(s): M19.90 - Unspecified osteoarthritis, unspecified site Type of Wound Date of Service: 01/17/19 Chief Complaint: Follow-up on a left anterior hip dehisced surgical wound History of Wound: 38-year-old white female that had left hip replacement surgery back in early November with an anterior entrance. Developed a dehisced wound at the distal end of the wound. Patient has been packing with Mesalt and seeing her regular surgeon weekly that finally referred her here. The area is extremely small deep dehisced area that looks clean there is no sign of redness pus does drain blood. Cultures were positive for staph aureus 3+. Patient was started on Bactrim DS twice daily for 10 days. Doing well with the Aquacel silver will continue packing with the roping. The wound appears to be smaller Progress of Wound: Doing well positive on her cultures started on Bactrim DS. Wound is smaller still draining serous drainage no pus no redness no swelling no pain - Physical Exam Vital Signs Temp Pulse Resp BP 97.7 F L 70 18 140/63 H 01/17/19 08:23 01/17/19 08:23 01/17/19 08:23 01/17/19 08:23 General: Oriented x3, Cooperative, Well developed HEENT: Atraumatic, PERRLA Oral: Moist Mucosa Neck: Supple, No JVD Lungs: Clear to auscultation, Normal air movement Cardiovascular: Regular rate, Regular Rhythm Abdomen: Bowel Sounds Present, Soft, Non Tender, No Hepato-splenomegaly Extremities: No clubbing, No edema Skin: Ulcer/ Wound - Left surgical wound dehisced Wound Measurements and Assessment WC - Nurse 1 - General Ulcer Measurement Start: 01/10/19 08:52 Freq: Status: Active Protocol: Activity Type Activity Date Activity User E-Sign Co-Sign Detail Recorded Client Recorded Date Recorded By Document 01/17/19 08:23 RB [id number] 01/17/19 08:32 RB 01/17/19 08:23 Wound Center Nurse 1 [Ulcer Assessment] #1 Anterior Left Hip -Combined with other wound No -Current Size (cm) - Length 0.8 -Current Size (cm) - Width 0.4 -Current Size (cm) - Depth 1.5 -Total Square Cm 0.32 -Tunneling Yes -Tunneling Position (O'clock) 5 -Tunneling Distance (cm) 1.5 -Undermining/Tunneling No -Circular Undermining No -Exudate Amt Small -Exudate Type Serosanguineous -Wound Margin Distinct, Outline Attached -Granulation Amt Large (67-100%) -Granulation Quality [place] -Slough/Fibrin Yes -Necrosis Amt Small (1-33%) -Necrotic Tissue Type Adherent Slough -Structure Exposed N/A -Texture (Ruthy-wound Skin Appearance) Assessed, Scarring -Moisture (Ruthy-wound Skin Appearance Assessed ) -Color (Ruthy-wound Skin Appearance) Assessed -Temperature (Ruthy-wound Skin No Abnormality Appearance) (Pt Warm) -Tenderness on Palpation (Ruthy-wound No Skin Appearance) -Ulcer Cleansing Wound Cleanser -Foul Odor after Cleansing No -Anesthetic Used 5% Lidocaine Gel WC - Nurse 2 - General Ulcer CM Notes Start: 01/10/19 08:52 Freq: Status: Active Protocol: Activity Type Activity Date Activity User E-Sign Co-Sign Detail Recorded Client Recorded Date Recorded By Document 01/17/19 08:54 MW [id number] 01/17/19 08:56 MW 01/17/19 08:54 Wound Center Nurse 2 [Procedure/Treatment] -Time 08:54 -Correct Patient Yes -Correct Side, Site, Position Yes -Correct Procedure Yes -Procedure Performed Yes -Type of Procedure Debridement -Clinical Debridement Subcutaneous -Post Debridement Size (cm) - Length 0.8 -Post Debridement Size (cm) - Width 0.4 -Post Debridement Size (cm) - Depth 1.4 -Total Square Cm 0.32 -Wound/Ulcer Outcome Not Healed -Ulcer Cleansing Rinsed/ Irrigated with Saline -Foul Odor after Cleansing No -Bioengineered Tissue No -Bleeding Controlled with Pressure -Offloading No -Treatment Response Procedure Tolerated Well [See Physician Procedure note for Specifics] Pain Scale: 0-10 Numeric [Pain] -Is Patient Pain Free? Yes Musculoskeletal: No Tenderness to Palpation of Joints or Extremities Lymphatic: No Cervical, Supraclavicular, or Inguinal Adenopathy Neurological: Cranial nerves II-XII grossly intact, Neuro grossly intact Psych/Mental Status: Normal Affect, Appropriate, Alert and oriented to time, place, person, mood and affect Debridement Note Post-Debridement Measurements/Treatment WC - Nurse 2 - General Ulcer CM Notes Start: 01/10/19 08:52 Freq: Status: Active Protocol: Activity Type Activity Date Activity User E-Sign Co-Sign Detail Recorded Client Recorded Date Recorded By Document 01/10/19 09:44 MW [id number] 01/10/19 09:49 MW Document 01/17/19 08:54 MW [id number] 01/17/19 08:56 MW 01/10/19 01/17/19 09:44 08:54 Wound Center Nurse 2 #1 Anterior Left Hip -Time 09:45 08:54 -Correct Patient Yes Yes -Correct Side, Site, Position Yes Yes -Correct Procedure Yes Yes -Procedure Performed Yes Yes -Type of Procedure Debridement Debridement -Clinical Debridement Subcutaneous Subcutaneous -Post Debridement Size (cm) - Length 1.0 0.8 -Post Debridement Size (cm) - Width 0.6 0.4 -Post Debridement Size (cm) - Depth 2.0 1.4 -Total Square Cm 0.60 0.32 -Wound/Ulcer Outcome Not Healed Not Healed -Ulcer Cleansing Rinsed/ Rinsed/ Irrigated with Irrigated with Saline Saline -Foul Odor after Cleansing No No -Bioengineered Tissue No No -Bleeding Controlled with Pressure Pressure -Offloading No No -Treatment Response Procedure Procedure Tolerated Well Tolerated Well Pain Scale: 0-10 Numeric Is Patient Pain Free? Yes Yes Wound debrided: Left surgical wound dehisced Type of Debridement: Excisional debridement Anesthesia Used: 5% Lidocaine Gel Depth: Down to and including healthy tissue Percentage of wound debrided: 100 Instrument Used: 3mm curette Tissue Removed: Fibrin Severity: Limited To Skin Breakdown Amount of bleeding with debridement: Mild Bleeding Controlled with: Compression and gauze Patient tolerated procedure well Assessment/Plan Active Problems Deep dehiscence of operation wound (Acute) Non-healing surgical wound (Acute) Osteoarthritis deformans (Acute) Assessment: Nonhealing surgical wound. Dehisced surgical wound left hip. History of osteoarthritis treated with Plaquenil Plan: Wash area with antibacterial soap. Pack with Aquacel roping every day. Cover with gauze and tape. Follow-up in 1 week. Bactrim DS 1 p.o. twice daily for 10 days
[2019-01-24 08:15] VITALS: BP 139/41; PULSE 63; RESP 16; TEMP 36.2; BMI 34.0
--- NOTE | 2019-01-24 08:45 | PCM.WC.PN ---
(1) Deep dehiscence of operation wound Status: Acute Current Visit: Yes Code(s): T81.32XA - Disruption of internal operation (surgical) wound, not elsewhere classified, initial encounter (2) Non-healing surgical wound Status: Acute Current Visit: Yes Code(s): T81.89XA - Other complications of procedures, not elsewhere classified, initial encounter (3) Osteoarthritis deformans Status: Acute Current Visit: Yes Code(s): M19.90 - Unspecified osteoarthritis, unspecified site Type of Wound Date of Service: 01/24/19 Chief Complaint: Follow-up on a left anterior hip dehisced surgical wound History of Wound: 38-year-old white female that had left hip replacement surgery back in early November with an anterior entrance. Developed a dehisced wound at the distal end of the wound. Patient has been packing with Mesalt and seeing her regular surgeon weekly that finally referred her here. The area is extremely small deep dehisced area that looks clean there is no sign of redness pus does drain blood. Cultures were positive for staph aureus 3+. Patient was started on Bactrim DS twice daily for 10 days. Doing well with the Aquacel silver will continue packing with the roping. The wound appears to be smaller Progress of Wound: Doing well positive on her cultures started on Bactrim DS. Patient had 3+ staph in the wound. Wound is smaller still draining serous drainage no pus no redness no swelling no pain - Physical Exam Vital Signs Temp Pulse Resp BP 97.1 F L 63 16 139/41 H 01/24/19 08:15 01/24/19 08:15 01/24/19 08:15 01/24/19 08:15 General: Oriented x3, Cooperative, Well developed HEENT: Atraumatic, PERRLA Oral: Moist Mucosa Neck: Supple, No JVD Lungs: Clear to auscultation, Normal air movement Cardiovascular: Regular rate, Regular Rhythm Abdomen: Bowel Sounds Present, Soft, Non Tender, No Hepato-splenomegaly Extremities: No clubbing, No edema, - - Surgical wound dehiscence left hip area anterior view Wound Measurements and Assessment WC - Nurse 1 - General Ulcer Measurement Start: 01/10/19 08:52 Freq: Status: Active Protocol: Activity Type Activity Date Activity User E-Sign Co-Sign Detail Recorded Client Recorded Date Recorded By Document 01/24/19 08:15 BS [id number] 01/24/19 08:24 BS 01/24/19 08:15 Wound Center Nurse 1 [Ulcer Assessment] #1 Anterior Left Hip -Combined with other wound No -Current Size (cm) - Length 1 -Current Size (cm) - Width 0.5 -Current Size (cm) - Depth 1.4 -Total Square Cm 0.5 -Photo Taken No -Granulation Quality [place],Red -Texture (Ruthy-wound Skin Appearance) Assessed, Scarring -Moisture (Ruthy-wound Skin Appearance Assessed,Dry/ ) Scaly -Temperature (Ruthy-wound Skin No Abnormality Appearance) (Pt Warm) -Tenderness on Palpation (Ruthy-wound No Skin Appearance) -Ulcer Cleansing Rinsed/ Irrigated with Saline -Foul Odor after Cleansing No -Anesthetic Used 5% Lidocaine Gel WC - Nurse 2 - General Ulcer CM Notes Start: 01/10/19 08:52 Freq: Status: Active Protocol: Activity Type Activity Date Activity User E-Sign Co-Sign Detail Recorded Client Recorded Date Recorded By Document 01/24/19 08:37 [id number] 01/24/19 08:38 01/24/19 08:37 Wound Center Nurse 2 [Procedure/Treatment] -Time 08:37 -Correct Patient Yes -Correct Side, Site, Position Yes -Correct Procedure Yes -Procedure Performed Yes -Type of Procedure Debridement -Clinical Debridement Subcutaneous -Post Debridement Size (cm) - Length 0.9 -Post Debridement Size (cm) - Width 0.6 -Post Debridement Size (cm) - Depth 1.5 -Total Square Cm 0.54 -Wound/Ulcer Outcome Not Healed -Ulcer Cleansing Rinsed/ Irrigated with Saline -Foul Odor after Cleansing No -Bioengineered Tissue No -Bleeding Controlled with Pressure -Offloading No -Treatment Response Procedure Tolerated Well [See Physician Procedure note for Specifics] Pain Scale: 0-10 Numeric [Pain] -Is Patient Pain Free? Yes Musculoskeletal: No Tenderness to Palpation of Joints or Extremities Lymphatic: No Cervical, Supraclavicular, or Inguinal Adenopathy Neurological: Cranial nerves II-XII grossly intact, Neuro grossly intact Psych/Mental Status: Normal Affect, Appropriate Debridement Note Post-Debridement Measurements/Treatment WC - Nurse 2 - General Ulcer CM Notes Start: 01/10/19 08:52 Freq: Status: Active Protocol: Activity Type Activity Date Activity User E-Sign Co-Sign Detail Recorded Client Recorded Date Recorded By Document 01/10/19 09:44 MW [id number] 01/10/19 09:49 MW Document 01/17/19 08:54 MW [id number] 01/17/19 08:56 MW Document 01/24/19 08:37 [id number] 01/24/19 08:38 JF 01/10/19 01/17/19 01/24/19 09:44 08:54 08:37 Wound Center Nurse 2 #1 Anterior Left Hip -Time 09:45 08:54 08:37 -Correct Patient Yes Yes Yes -Correct Side, Site, Position Yes Yes Yes -Correct Procedure Yes Yes Yes -Procedure Performed Yes Yes Yes -Type of Procedure Debridement Debridement Debridement -Clinical Debridement Subcutaneous Subcutaneous Subcutaneous -Post Debridement Size (cm) - Length 1.0 0.8 0.9 -Post Debridement Size (cm) - Width 0.6 0.4 0.6 -Post Debridement Size (cm) - Depth 2.0 1.4 1.5 -Total Square Cm 0.60 0.32 0.54 -Wound/Ulcer Outcome Not Healed Not Healed Not Healed -Ulcer Cleansing Rinsed/ Rinsed/ Rinsed/ Irrigated with Irrigated with Irrigated with Saline Saline Saline -Foul Odor after Cleansing No No No -Bioengineered Tissue No No No -Bleeding Controlled with Pressure Pressure Pressure -Offloading No No No -Treatment Response Procedure Procedure Procedure Tolerated Well Tolerated Well Tolerated Well Pain Scale: 0-10 Numeric Is Patient Pain Free? Yes Yes Yes Wound debrided: Left hip dehisced wound Type of Debridement: Excisional debridement Anesthesia Used: 5% Lidocaine Gel Depth: Down to and including healthy tissue, in the subcutaneous layer Instrument Used: 7mm curette Tissue Removed: Fibrin Amount of bleeding with debridement: Mild Bleeding Controlled with: Pressure, Compression and gauze Patient tolerated procedure well Assessment/Plan Active Problems Deep dehiscence of operation wound (Acute) Non-healing surgical wound (Acute) Osteoarthritis deformans (Acute) Assessment: Nonhealing surgical wound. Dehisced surgical wound left hip. History of osteoarthritis treated with Plaquenil Plan: Wash area with antibacterial soap. Pack with Aquacel roping every day. Cover with gauze and tape. Follow-up in 1 week. Continue Bactrim DS 1 p.o. twice daily for 10 days
[2019-01-31 08:40] VITALS: BP 137/75; PULSE 62; RESP 18; TEMP 36.6; BMI 34.0
--- NOTE | 2019-01-31 09:41 | PN.PCM_ITS ---
(1) Deep dehiscence of operation wound Status: Acute Current Visit: Yes Qualifiers: Encounter type: subsequent encounter Qualified Code(s): T81.32XD - Disruption of internal operation (surgical) wound, not elsewhere classified, subsequent encounter Code(s): T81.32XA - Disruption of internal operation (surgical) wound, not elsewhere classified, initial encounter (2) Non-healing surgical wound Status: Acute Current Visit: Yes Qualifiers: Encounter type: subsequent encounter Qualified Code(s): T81.89XD - Other complications of procedures, not elsewhere classified, subsequent encounter Code(s): T81.89XA - Other complications of procedures, not elsewhere classified, initial encounter (3) Osteoarthritis deformans Status: Acute Current Visit: Yes Code(s): M19.90 - Unspecified ost eoarthritis, unspecified site Type of Wound Date of Service: 01/31/19 Chief Complaint: Follow-up on a left anterior hip dehisced surgical wound History of Wound: 38-year-old white female that had left hip replacement surgery back in early November with an anterior entrance. Developed a dehisced wound at the distal end of the wound. Patient has been packing with Mesalt and seeing her regular surgeon weekly that finally referred her here. The area is extremely small deep dehisced area that looks clean there is no sign of redness pus does drain blood. Cultures were positive for staph aureus 3+. Patient was started on Bactrim DS twice daily for 10 days. Doing well with the Aquacel silver will continue packing with the roping. The wound appears to be smaller Progress of Wound: Doing well positive on her cultures started on Bactrim DS. Bactrim DS is finished still has depth wound is slightly smaller. Switching her to Promogran and see if that will help close the wound better. - Physical Exam Vital Signs Temp Pulse Resp BP 97.8 F 62 18 137/75 H 01/31/19 08:40 01/31/19 08:40 01/31/19 08:40 01/31/19 08:40 General: Oriented x3, Cooperative, Well developed HEENT: Atraumatic, PERRLA Oral: Moist Mucosa Neck: Supple, No JVD Lungs: Clear to auscultation, Normal air movement Cardiovascular: Regular rate, Regular Rhythm Abdomen: Bowel Sounds Present, Soft, Non Tender, No Hepato-splenomegaly Extremities: No clubbing, No edema Skin: Ulcer/ Wound - Dehisced hip wound from total hip replacement Wound Measurements and Assessment WC - Nurse 1 - General Ulcer Measurement Start: 01/10/19 08:52 Freq: Status: Active Protocol: Activity Type Activity Date Activity User E-Sign Co-Sign Detail Recorded Client Recorded Date Recorded By Document 01/31/19 08:40 RB [id number] 01/31/19 08:48 RB 01/31/19 08:40 Wound Center Nurse 1 [Ulcer Assessment] #1 Anterior Left Hip -Combined with other wound No -Current Size (cm) - Length 0.6 -Current Size (cm) - Width 0.4 -Current Size (cm) - Depth 1.5 -Total Square Cm 0.24 -Photo Taken No -Tunneling No -Undermining/Tunneling No -Circular Undermining No -Exudate Amt Small -Exudate Type Serosanguineous -Wound Margin Flat & Intact -Granulation Amt Medium (34-66%) -Granulation Quality [place],Red -Slough/Fibrin Yes -Necrosis Amt Small (1-33%) -Necrotic Tissue Type Adherent Slough -Structure Exposed N/A -Texture (Ruthy-wound Skin Appearance) Assessed, Scarring -Moisture (Ruthy-wound Skin Appearance Assessed ) -Color (Ruthy-wound Skin Appearance) Assessed -Temperature (Ruthy-wound Skin No Abnormality Appearance) (Pt Warm) -Tenderness on Palpation (Ruthy-wound No Skin Appearance) -Ulcer Cleansing Wound Cleanser -Foul Odor after Cleansing No -Anesthetic Used 5% Lidocaine Gel WC - Nurse 2 - General Ulcer CM Notes Start: 01/10/19 08:52 Freq: Status: Active Protocol: Activity Type Activity Date Activity User E-Sign Co-Sign Detail Recorded Client Recorded Date Recorded By Document 01/31/19 09:00 MW [id number] 01/31/19 09:01 MW 01/31/19 09:00 Wound Center Nurse 2 [Procedure/Treatment] -Time 09:00 -Correct Patient Yes -Correct Side, Site, Position Yes -Correct Procedure Yes -Procedure Performed Yes -Type of Procedure Debridement -Clinical Debridement Subcutaneous -Post Debridement Size (cm) - Length 0.6 -Post Debridement Size (cm) - Width 0.4 -Post Debridement Size (cm) - Depth 1.4 -Total Square Cm 0.24 -Wound/Ulcer Outcome Not Healed -Ulcer Cleansing Rinsed/ Irrigated with Saline -Foul Odor after Cleansing No -Bioengineered Tissue No -Bleeding Controlled with Pressure -Offloading No -Treatment Response Procedure Tolerated Well [See Physician Procedure note for Specifics] Pain Scale: 0-10 Numeric [Pain] -Is Patient Pain Free? Yes Musculoskeletal: No Tenderness to Palpation of Joints or Extremities Lymphatic: No Cervical, Supraclavicular, or Inguinal Adenopathy Neurological: Cranial nerves II-XII grossly intact, Neuro grossly intact Psych/Mental Status: Normal Affect, Appropriate Debridement Note Post-Debridement Measurements/Treatment WC - Nurse 2 - General Ulcer CM Notes Start: 01/10/19 08:52 Freq: Status: Active Protocol: Activity Type Activity Date Activity User E-Sign Co-Sign Detail Recorded Client Recorded Date Recorded By Document 01/10/19 09:44 MW [id number] 01/10/19 09:49 MW Document 01/17/19 08:54 MW [id number] 01/17/19 08:56 MW Document 01/24/19 08:37 JF [id number] 01/24/19 08:38 JF Document 01/31/19 09:00 MW [id number] 01/31/19 09:01 MW 01/10/19 01/17/19 01/24/19 09:44 08:54 08:37 Wound Center Nurse 2 #1 Anterior Left Hip -Time 09:45 08:54 08:37 -Correct Patient Yes Yes Yes -Correct Side, Site, Position Yes Yes Yes -Correct Procedure Yes Yes Yes -Procedure Performed Yes Yes Yes -Type of Procedure Debridement Debridement Debridement -Clinical Debridement Subcutaneous Subcutaneous Subcutaneous -Post Debridement Size (cm) - Length 1.0 0.8 0.9 -Post Debridement Size (cm) - Width 0.6 0.4 0.6 -Post Debridement Size (cm) - Depth 2.0 1.4 1.5 -Total Square Cm 0.60 0.32 0.54 -Wound/Ulcer Outcome Not Healed Not Healed Not Healed -Ulcer Cleansing Rinsed/ Rinsed/ Rinsed/ Irrigated with Irrigated with Irrigated with Saline Saline Saline -Foul Odor after Cleansing No No No -Bioengineered Tissue No No No -Bleeding Controlled with Pressure Pressure Pressure -Offloading No No No -Treatment Response Procedure Procedure Procedure Tolerated Well Tolerated Well Tolerated Well Pain Scale: 0-10 Numeric Is Patient Pain Free? Yes Yes Yes 01/31/19 09:00 Wound Center Nurse 2 #1 Anterior Left Hip -Time 09:00 -Correct Patient Yes -Correct Side, Site, Position Yes -Correct Procedure Yes -Procedure Performed Yes -Type of Procedure Debridement -Clinical Debridement Subcutaneous -Post Debridement Size (cm) - Length 0.6 -Post Debridement Size (cm) - Width 0.4 -Post Debridement Size (cm) - Depth 1.4 -Total Square Cm 0.24 -Wound/Ulcer Outcome Not Healed -Ulcer Cleansing Rinsed/ Irrigated with Saline -Foul Odor after Cleansing No -Bioengineered Tissue No -Bleeding Controlled with Pressure -Offloading No -Treatment Response Procedure Tolerated Well Pain Scale: 0-10 Numeric Is Patient Pain Free? Yes Wound debrided: Left hip surgical wound dehisced Type of Debridement: Excisional debridement Anesthesia Used: 5% Lidocaine Gel Depth: Down to and including healthy tissue, in the subcutaneous layer Percentage of wound debrided: 100 Instrument Used: 3mm curette Tissue Removed: Fibrin Severity: Limited To Skin Breakdown Amount of bleeding with debridement: Mild Bleeding Controlled with: Compression and gauze Patient tolerated procedure well Assessment/Plan Active Problems Deep dehiscence of operation wound (Acute) Non-healing surgical wound (Acute) Osteoarthritis deformans (Acute) Assessment: Nonhealing surgical wound. Dehisced surgical wound left hip. History of osteoarthritis treated with Plaquenil Plan: Wash area with antibacterial soap. Promogran. Cover with gauze and tape. Follow-up in 1 week
[2019-02-07 10:02] VITALS: BP 152/69; PULSE 62; RESP 16; TEMP 36.6; BMI 34.0
--- NOTE | 2019-02-07 10:39 | PCM.WC.PN ---
(1) Deep dehiscence of operation wound Status: Acute Current Visit: Yes Qualifiers: Encounter type: subsequent encounter Qualified Code(s): T81.32XD - Disruption of internal operation (surgical) wound, not elsewhere classified, subsequent encounter Code(s): T81.32XA - Disruption of internal operation (surgical) wound, not elsewhere classified, initial encounter (2) Non-healing surgical wound Status: Acute Current Visit: Yes Qualifiers: Encounter type: subsequent encounter Qualified Code(s): T81.89XD - Other complications of procedures, not elsewhere classified, subsequent encounter Code(s): T81.89XA - Other complications of procedures, not elsewhere classified, initial encounter (3) Osteoarthritis deformans Status: Acute Current Visit: Yes Code(s): M19.90 - Unspecified osteoarthritis, unspecified site Type of Wound Date of Service: 02/07/19 Chief Complaint: Follow-up on a left anterior hip dehisced surgical wound History of Wound: 38-year-old white female that had left hip replacement surgery back in early November with an anterior entrance. Developed a dehisced wound at the distal end of the wound. Patient has been packing with Mesalt and seeing her regular surgeon weekly that finally referred her here. The area is extremely small deep dehisced area that looks clean there is no sign of redness pus does drain blood. Cultures were positive for staph aureus 3+. Patient was started on Bactrim DS twice daily for 10 days. Doing well with the Aquacel silver will continue packing with the roping. The wound appears to be smaller Progress of Wound: Doing well positive on her cultures started on Bactrim DS. Bactrim DS is finished.the depth is gone is amazing how 1 week of Promogran has almost closed this dehisced wound. Still seeping out of a pinhole will give her 1 more week but I am sure she will be discharged next week. - Physical Exam Vital Signs Temp Pulse Resp BP 98 F 62 16 152/69 H 02/07/19 10:02 02/07/19 10:02 02/07/19 10:02 02/07/19 10:02 General: Oriented x3, Cooperative, Well developed HEENT: Atraumatic, PERRLA Oral: Moist Mucosa Neck: Supple, No JVD Lungs: Clear to auscultation, Normal air movement Cardiovascular: Regular rate, Regular Rhythm Abdomen: Bowel Sounds Present, Soft, Non Tender, No Hepato-splenomegaly Extremities: No clubbing, No edema Skin: Ulcer/ Wound - Left hip dehisced surgical wound Wound Measurements and Assessment - Nurse 1 - General Ulcer Measurement Start: 01/10/19 08:52 Freq: Status: Active Protocol: Activity Type Activity Date Activity User E-Sign Co-Sign Detail Recorded Client Recorded Date Recorded By Document 02/07/19 10:02 [facility] [id number] 02/07/19 10:11 [facility] 02/07/19 10:02 Wound Center Nurse 1 [Ulcer Assessment] #1 Anterior Left Hip -Combined with other wound No -Current Size (cm) - Length 0.7 -Current Size (cm) - Width 0.2 -Current Size (cm) - Depth 0.2 -Total Square Cm 0.14 -Photo Taken No -Epithelialization Small 1-33% -Tunneling No -Undermining/Tunneling No -Circular Undermining No -Exudate Amt Medium -Exudate Type Serosanguineous -Wound Margin Flat & Intact -Granulation Amt Small (1-33%) -Granulation Quality Red -Slough/Fibrin Yes -Necrosis Amt Medium (34-66%) -Necrotic Tissue Type Adherent Slough -Texture (Ruthy-wound Skin Appearance) Scarring -Moisture (Ruthy-wound Skin Appearance Assessed,Dry/ ) Scaly -Color (Ruthy-wound Skin Appearance) Assessed -Temperature (Ruthy-wound Skin No Abnormality Appearance) (Pt Warm) -Tenderness on Palpation (Ruthy-wound No Skin Appearance) -Ulcer Cleansing Rinsed/ Irrigated with Saline -Foul Odor after Cleansing No -Anesthetic Used 4% Lidocaine Solution - Nurse 2 - General Ulcer CM Notes Start: 01/10/19 08:52 Freq: Status: Active Protocol: Activity Type Activity Date Activity User E-Sign Co-Sign Detail Recorded Client Recorded Date Recorded By Document 02/07/19 10:19 MW [id number] 02/07/19 10:20 MW 02/07/19 10:19 Wound Center Nurse 2 [Procedure/Treatment] -Time 10:19 -Correct Patient Yes -Correct Side, Site, Position Yes -Correct Procedure Yes -Procedure Performed Yes -Type of Procedure Debridement -Clinical Debridement Subcutaneous -Post Debridement Size (cm) - Length 0.1 -Post Debridement Size (cm) - Width 0.1 -Post Debridement Size (cm) - Depth 0.1 -Total Square Cm 0.01 -Wound/Ulcer Outcome Not Healed -Ulcer Cleansing Rinsed/ Irrigated with Saline -Foul Odor after Cleansing No -Bioengineered Tissue No -Bleeding Controlled with Pressure -Offloading No -Treatment Response Procedure Tolerated Well [See Physician Procedure note for Specifics] Pain Scale: 0-10 Numeric [Pain] -Is Patient Pain Free? Yes Musculoskeletal: No Tenderness to Palpation of Joints or Extremities Lymphatic: No Cervical, Supraclavicular, or Inguinal Adenopathy Neurological: Cranial nerves II-XII grossly intact, Neuro grossly intact Psych/Mental Status: Normal Affect, Appropriate Debridement Note Post-Debridement Measurements/Treatment WC - Nurse 2 - General Ulcer CM Notes Start: 01/10/19 08:52 Freq: Status: Active Protocol: Activity Type Activity Date Activity User E-Sign Co-Sign Detail Recorded Client Recorded Date Recorded By Document 01/10/19 09:44 MW [id number] 01/10/19 09:49 MW Document 01/17/19 08:54 MW [id number] 01/17/19 08:56 MW Document 01/24/19 08:37 JF [id number] 01/24/19 08:38 JF Document 01/31/19 09:00 MW [id number] 01/31/19 09:01 MW Document 02/07/19 10:19 MW [id number] 02/07/19 10:20 MW 01/10/19 01/17/19 01/24/19 09:44 08:54 08:37 Wound Center Nurse 2 #1 Anterior Left Hip -Time 09:45 08:54 08:37 -Correct Patient Yes Yes Yes -Correct Side, Site, Position Yes Yes Yes -Correct Procedure Yes Yes Yes -Procedure Performed Yes Yes Yes -Type of Procedure Debridement Debridement Debridement -Clinical Debridement Subcutaneous Subcutaneous Subcutaneous -Post Debridement Size (cm) - Length 1.0 0.8 0.9 -Post Debridement Size (cm) - Width 0.6 0.4 0.6 -Post Debridement Size (cm) - Depth 2.0 1.4 1.5 -Total Square Cm 0.60 0.32 0.54 -Wound/Ulcer Outcome Not Healed Not Healed Not Healed -Ulcer Cleansing Rinsed/ Rinsed/ Rinsed/ Irrigated with Irrigated with Irrigated with Saline Saline Saline -Foul Odor after Cleansing No No No -Bioengineered Tissue No No No -Bleeding Controlled with Pressure Pressure Pressure -Offloading No No No -Treatment Response Procedure Procedure Procedure Tolerated Well Tolerated Well Tolerated Well Pain Scale: 0-10 Numeric Is Patient Pain Free? Yes Yes Yes 01/31/19 02/07/19 09:00 10:19 Wound Center Nurse 2 #1 Anterior Left Hip -Time 09:00 10:19 -Correct Patient Yes Yes -Correct Side, Site, Position Yes Yes -Correct Procedure Yes Yes -Procedure Performed Yes Yes -Type of Procedure Debridement Debridement -Clinical Debridement Subcutaneous Subcutaneous -Post Debridement Size (cm) - Length 0.6 0.1 -Post Debridement Size (cm) - Width 0.4 0.1 -Post Debridement Size (cm) - Depth 1.4 0.1 -Total Square Cm 0.24 0.01 -Wound/Ulcer Outcome Not Healed Not Healed -Ulcer Cleansing Rinsed/ Rinsed/ Irrigated with Irrigated with Saline Saline -Foul Odor after Cleansing No No -Bioengineered Tissue No No -Bleeding Controlled with Pressure Pressure -Offloading No No -Treatment Response Procedure Procedure Tolerated Well Tolerated Well Pain Scale: 0-10 Numeric Is Patient Pain Free? Yes Yes Wound debrided: Left hip dehisced surgical wound Type of Debridement: Excisional debridement Anesthesia Used: 5% Lidocaine Gel Depth: Down to and including healthy tissue, in the subcutaneous layer Percentage of wound debrided: 100 Instrument Used: 3mm curette Tissue Removed: Fibrin Amount of bleeding with debridement: None Bleeding Controlled with: Pressure Patient tolerated procedure well Assessment/Plan Active Problems Deep dehiscence of operation wound (Acute) Non-healing surgical wound (Acute) Osteoarthritis deformans (Acute) Assessment: Nonhealing surgical wound. Dehisced surgical wound left hip. History of osteoarthritis treated with Plaquenil Plan: Wash area with antibacterial soap. Promogran. Cover with gauze and tape. Follow-up in 1 week
== END 2019-02-08 23:59 ==
LOC: WC 08:45
PROVIDERS: Referring Provider Nurse Practitioner; Visit Provider Nurse Practitioner
DX: T81.32XA Disruption of internal operation (surgical) wound, not elsewhere classified, initial encounter (principal); Y83.8 Other surgical procedures as the cause of abnormal reaction of the patient, or of later complication, without mention of misadventure at the time of the procedure; M19.90 Unspecified osteoarthritis, unspecified site; Z96.642 Presence of left artificial hip joint; Z79.899 Other long term (current) drug therapy
CPT/HCPCS: 11042; 87070; 87075; 87077; 87186; 87205; 99213; G0463

== ENCOUNTER 2019-02-28 07:00 | Outpatient (RCR) | payer MEDICARE, SELFPAY ==
--- NOTE | 2018-11-27 08:46 | HP.PTEVAL_ITS ---
Patient's Visit Information ABEL MUÑOZ is a 68 year old F referred to Physical Therapy by Ever Dorantes MD with a diagnosis of Left THR Anterior Approach 10/21/18. Date of Evaluation: 11/27/18 Physical Therapist: Flory Cabrera DPT - Visit Plan Frequency: 2x /Week Duration: 4 Weeks Plan: Left THR 10/22/18 Anterior Approach- Focus on LE and core strength/stabilization - Subjective Findings: Left THR 10/21/[address] Dorantes at [facility]- went home 2 days after surgery- has help at home- home health therapy- released about 2 weeks ago. Still challenged going upstairs- and she does steps daily. Fully I prior to surgery including driving. Is back to driving currently. Worst pain in the last 48 hours: 4/10 Agg: being on it Best: 0/10 Eases: sitting down. Pain is located in the joint- no radiating pain. Describes the pain as dull pain. No N/T in the toes. Hip did not hurt prior to surgery but had very bad groin pain for a long time- hard to get in/out of the car- the pain has gone away. Wants to be able to ride her bike and hike with her friends- very active. Went back for post-op x-rays looked normal. Plans to call today due to her incision not looking as good as she wants it to be. Sleep: not disturbed. Anterior Approach- was given precautions of pivoting, hyperextension. Home Health Left with Exercises. PMhx/Meds: no change since Jul ER visit. - Objective Posture: FH, RS- mild increase in kyphosis- sitting in hard back chair- when sitting without back posture improves with verbal cues but she does not maintain. Gait: slightly antalgic- decreased stance on the left LE with mild Trendelenberg and hip drop. Stairs: asc/desc 8 recip with bilateral UE for pull for ascend and reports 5/10 pain- desc no pain but uncontrolled. HR/TR: able with UE A. SLS: 3 sec without UE A from wall and reports increased discomfort with mild hip drop. Observation: incision is on anterior hip- incision healing with black and yellow scabbing- bandages covered higher incision that she reports is draining and not healing- plans to call this AM and return for evaluation- PT stressed importance of this. ROM: WFL in all planes. Sensation: WNL. Strength: Ankle; 5/5, Knee: 5/5, Hip: IR/ER at neutral: 4/5 pain with ER strength testing, Flexion: 4/5, Abd: 4+/5, Add: 4+/5, Extn: 4+/5 in neutral- Core: fair. Flex: HS: mild, Gastroc: mild - Goals Goal 1:: Patient will be I with HEP and progression Goal Time Frame: 4-6 Weeks Goal 2:: Patient will ambulate >300 feet with a normalized gait pattern Goal Time Frame: 4-6 Weeks Goal 3:: Patient will asc/desc 8 stairs with single hand rail and no pain Goal Time Frame: 4-6 Weeks Goal 4:: Patient will report 0/10 pain with all ADL's/recreational activities. Goal Time Frame: 4-6 Weeks - Rehabilitation Potential Physical Therapy Diagnosis: Patient presents with hypomobility-she has decreased strength and muscular endurance leading to abnormal gait and increased pain with ADL's. Rehabilitation Potential: Good - Anticipated Interventions Patient/Client Instruction: Educate patient on: Benefits of Fitness Program Therapeutic Exercise to Include: Strength training, Endurance training, Balance training, Body mechanics, Postural training, Flexibilty training, Gait and locomotor training, Neuromotor development, Passive ROM, Active ROM, Dynamic Lumbar Stabilization For the Purpose of:: To improve muscle performance and motor function Functional Training to Include: Gait training TENS: Yes Cryotherapy (ice pack, ice massage): Yes Thermo therapy (hot pack): Yes Ultrasound (thermal/non thermal): No For the Purpose of:: To decrease pain Thank you for the opportunity to evaluate your patient. For Medicare and Medicare HMO plans, please review the plan of care and approve it. It will need to be FAXED BACK to us at [phone] for Medicare purposes. For Medicare only, by signing this I certify the plan of care. Please let me know if there are questions or concerns regarding this plan of care. Physician Signature: Date:
--- NOTE | 2019-01-08 08:28 | HP.PTREVAL_ITS ---
Ever Dorantes MD, It has been my pleasure to treat ABEL MUÑOZ over the last 8 visits for Left THR Anterior Approach 10/21/18. Please see the progress note below for an update on the physical therapy plan of care! Subjective: Patient reports that she feels the hip is much better since the hip replacement. She has decreased pain in the hip and no leg pain- increased function ex: getting in/out of the car. Less fatigue doing activities. Last 48 hours worst pain has been 3/10-when she walks she always has a little pain but is painfree when she is sitting. No problems sleeping. Patient feels that she is 40% to where she wants to be- She wants to be able to walk 4 miles over different terrain. She has an apt at the wound center tomorrow for her incision Objective/Function: Posture: FH, RS- mild increase in kyphosis- sitting in hard back chair- when sitting without back posture improves with verbal cues but she does not maintain. Gait: slightly antalgic- decreased stance on the left LE with mild Trendelenberg and hip drop. Stairs: asc/desc 8 recip with single rail for pull for ascend and reports 5/10 pain- desc no pain but uncontrolled. HR/TR: able with UE A. SLS: 3 sec without UE A from wall and reports increased discomfort 5/10 with mild hip drop. ROM: WFL in all planes. Sensation: WNL. Strength: Ankle; 5/5, Knee: 5/5, Hip: IR/ER at neutral: 4+/5 pain with ER strength testing, Flexion: 4+/5, Abd: 4+/5, Add: 4+/5, Extn: 4+/5 in neutral- Core: fair. Flex: HS: mild, Gastroc: mild. Did not observe incision due to wound clinic apt tomorrow. Plan Plan: Continue 2x a week for 4 weeks- Progress towards goals- Pt to follow up with PT after wound care visit tomorrow. Goals Goal 1:: Patient will be I with HEP and progression Goal Time Frame: 4-6 Weeks Goal Progress: Progressing Goal 2:: Patient will ambulate >300 feet with a normalized gait pattern Goal Time Frame: 4-6 Weeks Goal Progress: Progressing Goal 3:: Patient will asc/desc 8 stairs with single hand rail and no pain Goal Time Frame: 4-6 Weeks Goal Progress: Progressing Goal 4:: Patient will report 0/10 pain with all ADL's/recreational activities. Goal Time Frame: 4-6 Weeks Goal Progress: Progressing Anticipated Interventions Patient/Client Instruction: Educate patient on: Benefits of Fitness Program Therapeutic Exercise to Include: Strength training, Endurance training, Balance training, Body mechanics, Postural training, Flexibilty training, Gait and locomotor training, Neuromotor development, Passive ROM, Active ROM, Dynamic Lumbar Stabilization For the Purpose of:: To improve muscle performance and motor function Functional Training to Include: Gait training TENS: Yes Cryotherapy (ice pack, ice massage): Yes Thermo therapy (hot pack): Yes Ultrasound (thermal/non thermal): No For the Purpose of:: To decrease pain Please do not hesitate to contact me at [phone] by phone or Fax: if you have questions or concerns regarding this new plan of care! Sincerely, Flory Cabrera DPT
--- NOTE | 2019-02-28 07:40 | HP.PTDCSUM ---
HP - PT D/C Summary It has been my pleasure to treat ABEL MUÑOZ under orders from Ever Dorantes MD, for the diagnosis of Left THR Anterior Approach 10/21/18 for a total of 19 visit(s). Discharge Date: Please see the following information for a summary of their discharge status. - Subjective Subjective: Pt. reports feeling better, cont. to have difficulty walking long distances d/t pain & fatigue. Reports another infection in hip & is on another round of antibiotics. Therapy has been great, 07/21. - Pain Left Hip Pain Intensity (Out of 10): 0 - Overall Improvement % Improvement: 50 - Objective Objective/Function: Posture: FH, RS- mild increase in kyphosis- sitting in hard back chair- when sitting without back posture improves with verbal cues but she does not maintain. Gait: decreased stance on the left LE with mild Trendelenberg. Stairs: asc/desc 8 recip with slight B UE support fotr balance for ascend and reports no pain. HR/TR: WFL w/ UE A. SLS: 3 sec without UE A from wall and reports increased discomfort with mild hip drop. ROM: WFL in all planes. Sensation: WNL. Strength: Knee 5/5 Hip 5/5, except abd. 4-/5 - Goals Goal 1:: Patient will be I with HEP and progression Goal Progress: Goal Met Goal 2:: Patient will ambulate >300 feet with a normalized gait pattern Goal Progress: Progressing Goal 3:: Patient will asc/desc 8 stairs with single hand rail and no pain Goal Progress: Progressing Goal 4:: Patient will report 0/10 pain with all ADL's/recreational activities. Goal Progress: Progressing - Plan Plan: 02/28/19 Pt. D/C & instructed to continue HEP- plans to join [facility] wheeler - D/C Information If there are questions or concerns regarding this patient's physical therapy, please feel free to call me at [phone]. Thank you for the referral of this patient. Sincerely, Flory Cabrera DPT
== END 2019-02-28 19:00 | disposition home or self-care (01) ==
LOC: PT 07:00
PROVIDERS: Referring Provider Orthopaedic Surgery; Visit Provider Orthopaedic Surgery
DX: Z96.642 Presence of left artificial hip joint (principal)
CPT/HCPCS: 97110; 97161; 97164

== ENCOUNTER 2019-02-28 08:45 | Outpatient (RCR) | payer MEDICARE, SELFPAY ==
[2019-02-09 01:06] VITALS: BP 152/69; PULSE 62; RESP 16; TEMP 36.6
[2019-02-14 09:14] VITALS: BP 150/78; PULSE 61; RESP 14; TEMP 36.4; BMI 34.0
--- NOTE | 2019-02-14 10:44 | PCM.WC.PN ---
(1) Deep dehiscence of operation wound Status: Acute Current Visit: Yes Qualifiers: Code(s): T81.32XA - Disruption of internal operation (surgical) wound, not elsewhere classified, initial encounter (2) Non-healing surgical wound Status: Acute Current Visit: Yes Qualifiers: Code(s): T81.89XA - Other complications of procedures, not elsewhere classified, initial encounter (3) Osteoarthritis deformans Status: Acute Current Visit: Yes Code(s): M19.90 - Unspecified osteoarthritis, unspecified site Type of Wound Date of Service: 02/14/19 Chief Complaint: Follow-up on a left anterior hip dehisced surgical wound History of Wound: 38-year-old white female that had left hip replacement surgery back in early November with an anterior entrance. Developed a dehisced wound at the distal end of the wound. Patient has been packing with Mesalt and seeing her regular surgeon weekly that finally referred her here. The area is extremely small deep dehisced area that looks clean there is no sign of redness pus does drain blood. Cultures were positive for staph aureus 3+. Patient was started on Bactrim DS twice daily for 10 days. Doing well with the Aquacel silver will continue packing with the roping. The wound appears to be smaller Progress of Wound: Doing well positive on her cultures started on Bactrim DS. Bactrim DS is finished.the depth is gone is amazing how 1 week of Promogran has almost closed this dehisced wound. Still at the distal and has some opening 0.3 depth we will continue the Promogran patient needs to pack better and follow-up in 1 week. - Physical Exam Vital Signs Temp Pulse Resp BP 97.5 F L 61 14 150/78 H 02/14/19 09:14 02/14/19 09:14 02/14/19 09:14 02/14/19 09:14 General: Oriented x3, Cooperative, Well developed HEENT: Atraumatic, PERRLA Oral: Moist Mucosa Neck: Supple, No JVD Lungs: Clear to auscultation, Normal air movement Cardiovascular: Regular rate, Regular Rhythm Abdomen: Bowel Sounds Present, Soft, Non Tender, No Hepato-splenomegaly Extremities: No clubbing, No edema, - - Left hip dehisced wound Wound Measurements and Assessment WC - Nurse 1 - General Ulcer Measurement Start: 02/14/19 09:14 Freq: Status: Active Protocol: Activity Type Activity Date Activity User E-Sign Co-Sign Detail Recorded Client Recorded Date Recorded By Document 02/14/19 09:14 MW [id number] 02/14/19 09:16 MW 02/14/19 09:14 Wound Center Nurse 1 [Ulcer Assessment] #1 Anterior Left Hip -Combined with other wound No -Current Size (cm) - Length 0.1 -Current Size (cm) - Width 0.1 -Current Size (cm) - Depth 0.1 -Total Square Cm 0.01 -Photo Taken No -Epithelialization Large 67-100% -Tunneling No -Undermining/Tunneling No -Circular Undermining No -Granulation Amt None Present (0 %) -Granulation Quality N/A -Slough/Fibrin Yes -Necrosis Amt Small (1-33%) -Necrotic Tissue Type Adherent Slough -Structure Exposed N/A -Texture (Ruthy-wound Skin Appearance) Assessed, Scarring -Moisture (Ruthy-wound Skin Appearance No Abnormality, ) Assessed -Color (Ruthy-wound Skin Appearance) No Abnormality, Assessed -Temperature (Ruthy-wound Skin No Abnormality Appearance) (Pt Warm) -Tenderness on Palpation (Ruthy-wound No Skin Appearance) -Ulcer Cleansing Rinsed/ Irrigated with Saline -Foul Odor after Cleansing No -Anesthetic Used 4% Lidocaine Solution [Edema Assessment] -Lower Limb Edema Present No WC - Nurse 2 - General Ulcer CM Notes Start: 02/14/19 09:14 Freq: Status: Active Protocol: Activity Type Activity Date Activity User E-Sign Co-Sign Detail Recorded Client Recorded Date Recorded By Document 02/14/19 09:16 MW [id number] 02/14/19 09:25 MW 02/14/19 09:16 Wound Center Nurse 2 [Procedure/Treatment] #1 Anterior Left Hip -Time 09:19 -Correct Patient Yes -Correct Side, Site, Position Yes -Correct Procedure Yes -Procedure Performed Yes -Type of Procedure Debridement -Clinical Debridement Subcutaneous -Post Debridement Size (cm) - Length 0.4 -Post Debridement Size (cm) - Width 0.2 -Post Debridement Size (cm) - Depth 0.3 -Total Square Cm 0.08 -Wound/Ulcer Outcome Not Healed -Ulcer Cleansing Rinsed/ Irrigated with Saline -Foul Odor after Cleansing No -Bioengineered Tissue No -Bleeding Controlled with Pressure -Offloading No -Treatment Response Procedure Tolerated Well [See Physician Procedure note for Specifics] Pain Scale: 0-10 Numeric [Pain] -Is Patient Pain Free? Yes Musculoskeletal: No Tenderness to Palpation of Joints or Extremities Lymphatic: No Cervical, Supraclavicular, or Inguinal Adenopathy Neurological: Cranial nerves II-XII grossly intact, Neuro grossly intact Psych/Mental Status: Normal Affect, Appropriate, Alert and oriented to time, place, person, mood and affect Debridement Note Post-Debridement Measurements/Treatment WC - Nurse 2 - General Ulcer CM Notes Start: 02/14/19 09:14 Freq: Status: Active Protocol: Activity Type Activity Date Activity User E-Sign Co-Sign Detail Recorded Client Recorded Date Recorded By Document 02/14/19 09:16 MW [id number] 02/14/19 09:25 MW 02/14/19 09:16 Wound Center Nurse 2 #1 Anterior Left Hip -Time 09:19 -Correct Patient Yes -Correct Side, Site, Position Yes -Correct Procedure Yes -Procedure Performed Yes -Type of Procedure Debridement -Clinical Debridement Subcutaneous -Post Debridement Size (cm) - Length 0.4 -Post Debridement Size (cm) - Width 0.2 -Post Debridement Size (cm) - Depth 0.3 -Total Square Cm 0.08 -Wound/Ulcer Outcome Not Healed -Ulcer Cleansing Rinsed/ Irrigated with Saline -Foul Odor after Cleansing No -Bioengineered Tissue No -Bleeding Controlled with Pressure -Offloading No -Treatment Response Procedure Tolerated Well Pain Scale: 0-10 Numeric Is Patient Pain Free? Yes Wound debrided: Left hip dehisced wound Laterality: Left Type of Debridement: Excisional debridement Anesthesia Used: 5% Lidocaine Gel Depth: Down to and including healthy tissue, in the subcutaneous layer Percentage of wound debrided: 100 Instrument Used: 3mm curette Tissue Removed: Fibrin Amount of bleeding with debridement: Mild Bleeding Controlled with: Compression and gauze Patient tolerated procedure well Assessment/Plan Active Problems Deep dehiscence of operation wound (Acute) Non-healing surgical wound (Acute) Osteoarthritis deformans (Acute) Assessment: Nonhealing surgical wound. Dehisced surgical wound left hip. History of osteoarthritis treated with Plaquenil Plan: Wash area with antibacterial soap. Promogran packed in wound base. Cover with gauze and tape. Follow-up in 1 week
[2019-02-21 09:09] VITALS: BP 187/77; PULSE 60; RESP 16; TEMP 36.6; BMI 34.0
--- NOTE | 2019-02-21 10:03 | PN.PCM_ITS ---
(1) Deep dehiscence of operation wound Status: Acute Current Visit: Yes Qualifiers: Code(s): T81.32XA - Disruption of internal operation (surgical) wound, not elsewhere classified, initial encounter (2) Non-healing surgical wound Status: Acute Current Visit: Yes Qualifiers: Code(s): T81.89XA - Other complications of procedures, not elsewhere classified, initial encounter (3) Osteoarthritis deformans Status: Acute Current Visit: Yes Code(s): M19.90 - Unspecified osteoarthritis, unspecified site Type of Wound Date of Service: 02/21/19 Chief Complaint: Follow-up on a left anterior hip dehisced surgical wound History of Wound: 38-year-old white female that had left hip replacement surgery back in early November with an anterior entrance. Developed a dehisced wound at the distal end of the wound. Patient has been packing with Mesalt and seeing her regular surgeon weekly that finally referred her here. The area is extremely small deep dehisced area that looks clean there is no sign of redness pus does drain blood. Cultures were positive for staph aureus 3+. Patient was started on Bactrim DS twice daily for 10 days. Doing well with the Aquacel silver will continue packing with the roping. The wound appears to be smaller Progress of Wound: Doing well positive on her cultures started on Bactrim DS. Bactrim DS is finished.the depth is gone is amazing how 1 week of Promogran has almost closed this dehisced wound. Still at the distal and has some opening 0.3 depth we will continue the Promogran patient needs to pack better and follow-up in 1 week. Recultured since his been over a month to see if there is any other problem why this is not closing up. - Physical Exam Vital Signs Temp Pulse Resp BP 97.8 F 60 16 187/77 H 02/21/19 09:09 02/21/19 09:09 02/21/19 09:09 02/21/19 09:09 General: Oriented x3, Cooperative, Well developed HEENT: Atraumatic, PERRLA Oral: Moist Mucosa Neck: Supple, No JVD Lungs: Clear to auscultation, Normal air movement Cardiovascular: Regular rate, Regular Rhythm Abdomen: Bowel Sounds Present, Soft, Non Tender, No Hepato-splenomegaly Extremities: No clubbing, No edema Skin: Ulcer/ Wound - Dehisced surgical wound to left hip distal and open Wound Measurements and Assessment - Nurse 1 - General Ulcer Measurement Start: 02/14/19 09:14 Freq: Status: Active Protocol: Activity Type Activity Date Activity User E-Sign Co-Sign Detail Recorded Client Recorded Date Recorded By Document 02/21/19 09:09 [facility] [id number] 02/21/19 09:16 [facility] 02/21/19 09:09 Wound Center Nurse 1 [Ulcer Assessment] #1 Anterior Left Hip -Combined with other wound No -Current Size (cm) - Length 0.4 -Current Size (cm) - Width 0.1 -Current Size (cm) - Depth 0.3 -Total Square Cm 0.04 -Photo Taken No -Epithelialization None Present -Tunneling No -Undermining/Tunneling No -Circular Undermining No -Exudate Amt Small -Exudate Type Serosanguineous -Wound Margin Distinct, Outline Attached -Granulation Amt Large (67-100%) -Granulation Quality Red -Slough/Fibrin No -Necrosis Amt None Present (0 %) -Texture (Ruthy-wound Skin Appearance) Assessed, Scarring -Moisture (Ruthy-wound Skin Appearance Assessed ) -Color (Ruthy-wound Skin Appearance) Assessed -Temperature (Ruthy-wound Skin No Abnormality Appearance) (Pt Warm) -Tenderness on Palpation (Ruthy-wound No Skin Appearance) -Ulcer Cleansing Rinsed/ Irrigated with Saline -Foul Odor after Cleansing No -Anesthetic Used 4% Lidocaine Solution WC - Nurse 2 - General Ulcer CM Notes Start: 02/14/19 09:14 Freq: Status: Active Protocol: Activity Type Activity Date Activity User E-Sign Co-Sign Detail Recorded Client Recorded Date Recorded By Document 02/21/19 09:34 [id number] 02/21/19 09:37 MW 02/21/19 09:34 Wound Center Nurse 2 [Procedure/Treatment] -Time 09:37 -Correct Patient Yes -Correct Side, Site, Position Yes -Correct Procedure Yes -Procedure Performed Yes -Type of Procedure Debridement -Clinical Debridement Subcutaneous -Post Debridement Size (cm) - Length 0.3 -Post Debridement Size (cm) - Width 0.2 -Post Debridement Size (cm) - Depth 0.6 -Total Square Cm 0.06 -Wound/Ulcer Outcome Not Healed -Ulcer Cleansing Rinsed/ Irrigated with Saline -Foul Odor after Cleansing No -Bioengineered Tissue No -Bleeding Controlled with Pressure -Offloading No -Treatment Response Procedure Tolerated Well [See Physician Procedure note for Specifics] Pain Scale: 0-10 Numeric [Pain] -Is Patient Pain Free? Yes Musculoskeletal: No Tenderness to Palpation of Joints or Extremities Lymphatic: No Cervical, Supraclavicular, or Inguinal Adenopathy Neurological: Cranial nerves II-XII grossly intact, Neuro grossly intact Psych/Mental Status: Normal Affect, Appropriate Debridement Note Post-Debridement Measurements/Treatment WC - Nurse 2 - General Ulcer CM Notes Start: 02/14/19 09:14 Freq: Status: Active Protocol: Activity Type Activity Date Activity User E-Sign Co-Sign Detail Recorded Client Recorded Date Recorded By Document 02/14/19 09:16 MW [id number] 02/14/19 09:25 MW Document 02/21/19 09:34 MW [id number] 02/21/19 09:37 MW 02/14/19 02/21/19 09:16 09:34 Wound Center Nurse 2 #1 Anterior Left Hip -Time 09: 09:37 -Correct Patient Yes Yes -Correct Side, Site, Position Yes Yes -Correct Procedure Yes Yes -Procedure Performed Yes Yes -Type of Procedure Debridement Debridement -Clinical Debridement Subcutaneous Subcutaneous -Post Debridement Size (cm) - Length 0.4 0.3 -Post Debridement Size (cm) - Width 0.2 0.2 -Post Debridement Size (cm) - Depth 0.3 0.6 -Total Square Cm 0.08 0.06 -Wound/Ulcer Outcome Not Healed Not Healed -Ulcer Cleansing Rinsed/ Rinsed/ Irrigated with Irrigated with Saline Saline -Foul Odor after Cleansing No No -Bioengineered Tissue No No -Bleeding Controlled with Pressure Pressure -Offloading No No -Treatment Response Procedure Procedure Tolerated Well Tolerated Well Pain Scale: 0-10 Numeric Is Patient Pain Free? Yes Yes Wound debrided: Dehisced surgical wound on left hip Type of Debridement: Excisional debridement Anesthesia Used: 5% Lidocaine Gel Depth: Down to and including healthy tissue, in the subcutaneous layer Percentage of wound debrided: 100 Instrument Used: - - 1mm Curette Tissue Removed: Fibrin Severity: Fat Layer Exposed Bleeding Controlled with: Compression and gauze Patient tolerated procedure well Assessment/Plan Aerobic and anaerobic cultures taken of the dehisced wound Active Problems Deep dehiscence of operation wound (Acute) Non-healing surgical wound (Acute) Osteoarthritis deformans (Acute) Assessment: Nonhealing surgical wound. Dehisced surgical wound left hip. History of osteoarthritis treated with Plaquenil Plan: Wash area with antibacterial soap. Promogran packed in wound base. Cover with gauze and tape. Will call with the culture results if positive. Follow- up in 1 week
[2019-02-28 08:40] VITALS: BP 187/86; PULSE 58; RESP 18; TEMP 36.9; BMI 34.0
--- NOTE | 2019-02-28 12:28 | PN.PCM_ITS ---
(1) Deep dehiscence of operation wound Status: Acute Current Visit: Yes Qualifiers: Code(s): T81.32XA - Disruption of internal operation (surgical) wound, not elsewhere classified, initial encounter (2) Non-healing surgical wound Status: Acute Current Visit: Yes Qualifiers: Code(s): T81.89XA - Other complications of procedures, not elsewhere classified, initial encounter (3) Osteoarthritis deformans Status: Acute Current Visit: Yes Code(s): M19.90 - Unspecified osteoarthritis, unspecified site Type of Wound Date of Service: 02/28/19 Chief Complaint: Follow-up on a left anterior hip dehisced surgical wound History of Wound: 38-year-old white female that had left hip replacement surgery back in early November with an anterior entrance. Developed a dehisced wound at the distal end of the wound. Patient has been packing with Mesalt and seeing her regular surgeon weekly that finally referred her here. The area is extremely small deep dehisced area that looks clean there is no sign of redness pus does drain blood. Cultures were positive for staph aureus 3+. Patient was started on Bactrim DS twice daily for 10 days. Doing well with the Aquacel silver will continue packing with the roping. The wound appears to be smaller Progress of Wound: Doing well positive on her cultures started on Bactrim DS. Bactrim DS is finished.the depth is gone is amazing how 1 week of Promogran has almost closed this dehisced wound. Still at the distal and has some opening 0.3 depth we will continue the Promogran patient needs to pack better and follow-up in 1 week. Reculture has shown staph again patient was started back up on an antibiotic and the wound is almost closed now. We will follow-up in 2 weeks patient should have a closed wound - Physical Exam Vital Signs Temp Pulse Resp BP 98.4 F 58 L 18 187/86 H 02/28/19 08:40 02/28/19 08:40 02/28/19 08:40 02/28/19 08:40 General: Oriented x3, Cooperative, Well developed HEENT: Atraumatic, PERRLA Oral: Moist Mucosa Neck: Supple, No JVD Lungs: Clear to auscultation, Normal air movement Cardiovascular: Regular rate, Regular Rhythm Abdomen: Bowel Sounds Present, Soft, Non Tender, No Hepato-splenomegaly Extremities: No clubbing, No edema Wound Measurements and Assessment - Nurse 1 - General Ulcer Measurement Start: 02/14/19 09:14 Freq: Status: Active Protocol: Activity Type Activity Date Activity User E-Sign Co-Sign Detail Recorded Client Recorded Date Recorded By Document 02/28/19 08:40 AN [id number] 02/28/19 08:52 AN 02/28/19 08:40 Wound Center Nurse 1 [Ulcer Assessment] #1 Anterior Left Hip -Current Size (cm) - Length 0.4 -Current Size (cm) - Width 0.2 -Current Size (cm) - Depth 0.3 -Total Square Cm 0.08 -Classification - Thickness Full Thickness without Exposed Support Structure -Exudate Amt Medium -Exudate Type Serosanguineous -Wound Margin Distinct, Outline Attached -Granulation Amt Medium (34-66%) -Granulation Quality Red -Necrosis Amt Medium (34-66%) -Necrotic Tissue Type Adherent Slough -Structure Exposed None/Limited to Skin Breakdown -Texture (Ruthy-wound Skin Appearance) Assessed -Moisture (Ruthy-wound Skin Appearance Assessed ) -Color (Ruthy-wound Skin Appearance) Assessed -Temperature (Ruthy-wound Skin No Abnormality Appearance) (Pt Warm) -Tenderness on Palpation (Ruthy-wound No Skin Appearance) -Ulcer Cleansing Rinsed/ Irrigated with Saline -Foul Odor after Cleansing No -Anesthetic Used 4% Lidocaine Solution - Nurse 2 - General Ulcer CM Notes Start: 02/14/19 09:14 Freq: Status: Active Protocol: Activity Type Activity Date Activity User E-Sign Co-Sign Detail Recorded Client Recorded Date Recorded By Document 02/28/19 08:59 MW [id number] 02/28/19 09:01 MW 02/28/19 08:59 Wound Center Nurse 2 [Procedure/Treatment] -Time 09:00 -Correct Patient Yes -Correct Side, Site, Position Yes -Correct Procedure Yes -Procedure Performed Yes -Type of Procedure Debridement -Clinical Debridement Subcutaneous -Post Debridement Size (cm) - Length 0.3 -Post Debridement Size (cm) - Width 0.3 -Post Debridement Size (cm) - Depth 0.2 -Total Square Cm 0.09 -Wound/Ulcer Outcome Not Healed -Ulcer Cleansing Rinsed/ Irrigated with Saline -Foul Odor after Cleansing No -Bioengineered Tissue No -Bleeding Controlled with Pressure -Offloading No -Treatment Response Procedure Tolerated Well [See Physician Procedure note for Specifics] Pain Scale: 0-10 Numeric [Pain] -Is Patient Pain Free? Yes Musculoskeletal: No Tenderness to Palpation of Joints or Extremities Lymphatic: No Cervical, Supraclavicular, or Inguinal Adenopathy Neurological: Cranial nerves II-XII grossly intact, Neuro grossly intact Psych/Mental Status: Normal Affect, Appropriate, Alert and oriented to time, place, person, mood and affect Debridement Note Post-Debridement Measurements/Treatment WC - Nurse 2 - General Ulcer CM Notes Start: 02/14/19 09:14 Freq: Status: Active Protocol: Activity Type Activity Date Activity User E-Sign Co-Sign Detail Recorded Client Recorded Date Recorded By Document 02/14/19 09:16 MW [id number] 02/14/19 09:25 MW Document 02/21/19 09:34 MW [id number] 02/21/19 09:37 MW Document 02/28/19 08:59 MW [id number] 02/28/19 09:01 MW 02/14/19 02/21/19 02/28/19 09:16 09:34 08:59 Wound Center Nurse 2 #1 Anterior Left Hip -Time 09:19 09:37 09:00 -Correct Patient Yes Yes Yes -Correct Side, Site, Position Yes Yes Yes -Correct Procedure Yes Yes Yes -Procedure Performed Yes Yes Yes -Type of Procedure Debridement Debridement Debridement -Clinical Debridement Subcutaneous Subcutaneous Subcutaneous -Post Debridement Size (cm) - Length 0.4 0.3 0.3 -Post Debridement Size (cm) - Width 0.2 0.2 0.3 -Post Debridement Size (cm) - Depth 0.3 0.6 0.2 -Total Square Cm 0.08 0.06 0.09 -Wound/Ulcer Outcome Not Healed Not Healed Not Healed -Ulcer Cleansing Rinsed/ Rinsed/ Rinsed/ Irrigated with Irrigated with Irrigated with Saline Saline Saline -Foul Odor after Cleansing No No No -Bioengineered Tissue No No No -Bleeding Controlled with Pressure Pressure Pressure -Offloading No No No -Treatment Response Procedure Procedure Procedure Tolerated Well Tolerated Well Tolerated Well Pain Scale: 0-10 Numeric Is Patient Pain Free? Yes Yes Yes Wound debrided: Left hip dehisced wound Type of Debridement: Excisional debridement Anesthesia Used: 5% Lidocaine Gel Depth: Down to and including healthy tissue, in the subcutaneous layer Percentage of wound debrided: 100 Instrument Used: 3mm curette Tissue Removed: Fibrin Amount of bleeding with debridement: None Assessment/Plan Active Problems Deep dehiscence of operation wound (Acute) Non-healing surgical wound (Acute) Osteoarthritis deformans (Acute) Assessment: Nonhealing surgical wound. Dehisced surgical wound left hip. History of osteoarthritis treated with Plaquenil Plan: Wash area with antibacterial soap. Promogran packed in wound base. Cover with gauze and tape. Will call with the culture results if positive. Follow- up in 2 week
== END 2019-03-10 23:59 ==
LOC: WC 08:45
PROVIDERS: Referring Provider Nurse Practitioner; Visit Provider Nurse Practitioner
DX: T81.32XA Disruption of internal operation (surgical) wound, not elsewhere classified, initial encounter (principal); Y83.8 Other surgical procedures as the cause of abnormal reaction of the patient, or of later complication, without mention of misadventure at the time of the procedure; M19.90 Unspecified osteoarthritis, unspecified site; Z96.642 Presence of left artificial hip joint
CPT/HCPCS: 11042; 87070; 87075; 87077; 87186; 87205

== ENCOUNTER → 2019-02-28 | Outpatient (CLI) | payer MEDICARE, SELFPAY ==
[2019-02-21 09:09] VITALS: BMI 34.0
[2019-02-28 08:40] VITALS: BMI 34.0
[2019-02-28 12:44] LABS: Color, Urine Straw (Yellow); Glucose, Dipstick Normal (Normal); Ketone-Dipstick Negative (Negative); Leukocyte Esterase-Dipstick 25 /ul (Negative); Nitrite-Dipstick Negative (Negative); Occult Blood-Urine Negative /ul (Negative); Protein-Dipstick Negative (Negative); Urine Bilirubin Dipstick Negative (Negative); Urine Clarity Clear (Clear); Urine Urobilinogen Normal (Normal)
[2019-02-28 13:53] LABS: AST(SGOT) 24 U/L (15-37); Alanine Aminotransfer ALT/SGPT 28 U/L (13-56); Albumin, Serum 3.4 g/dL (3.2-5.0); Alkaline Phosphatase 91 U/L (45-117); Anion Gap 10 (5-15); BUN 18 mg/dL (7-18); BUN/Creat Ratio 19.8 RATIO (10-20); Calcium,Total 8.7 mg/dL (8.5-10.1); Chloride 107 mmol/L (98-107); Cholesterol 223 mg/dL (200); Creatinine, Serum 0.91 mg/dL (0.55-1.02); EST Glomerular Filtration Rate 65 mL/min (>60); Est Glom Filt Rate - Afr Amer 79 mL/min (>60); Globulin 3.3 g/dL (2.2-4.2); Glucose 70 mg/dL (74-106); High Density Lipoprotein 89 mg/dL; Potassium 4.2 mmol/L (3.5-5.1); Protein, Total 6.7 g/dL (6.4-8.2); Sodium Level 142 mmol/L (136-145); Triglycerides 81 mg/dL; Very Low Density Lipoprotein 16 mg/dL (5-40)
== END | disposition home or self-care (01) ==
LOC: LAB.FUTURE 09:29
PROVIDERS: Referring Provider Family Medicine; Visit Provider Family Medicine
DX: E03.9 Hypothyroidism, unspecified (principal); Z96.642 Presence of left artificial hip joint
CPT/HCPCS: 36415; 80053; 80061; 81002; 84443; 97164

== ENCOUNTER → 2019-03-07 | Outpatient (CLI) | payer MEDICARE, SELFPAY ==
[2019-02-28 08:40] VITALS: BMI 34.0
--- NOTE | 2019-03-07 08:56 | BI_ITS ---
MAMMOGRAPHY - BILATERAL SCREENING REASON FOR EXAM: Female, 68 years old. Routine annual screening examination. PERTINENT HISTORY: Non-contributory. TECHNIQUE: Digital bilateral breast mili (3D mammographic acquisition) in the CC and MLO projections. 2-D mediolateral oblique (MLO) and craniocaudad (CC) views of both breasts were obtained. CAD: Full Field Digital Mammography with Computer Added Detection was performed. COMPARISON: Comparison is made with prior examination dated September 24, 2017 and July 10, 2016. FINDINGS: Breast Composition: There are scattered areas of fibroglandular density. There are no dominant masses or suspicious calcifications. No other significant abnormalities are identified. There has been no significant change since the prior study. BI/SCREEN MAMM (CAD) W/MILI BILAT IMPRESSION: Stable bilateral screening mammogram. Yearly follow-up mammogram recommended. (A) ASSESSMENT CATEGORY: BIRADS Category 1: Negative. A letter regarding these results will be sent to the patient by the facility within 30 days. Approximately 10% of breast cancers are not detected by mammography. A normal mammogram should not delay biopsy of a clinically suspicious abnormality. [id number] Electronically Signed: Yvon Hamlin, at 9:06 EDT , Service support ,
== END | disposition home or self-care (01) ==
LOC: OPBI 08:55
PROVIDERS: Referring Provider Family Medicine; Visit Provider Family Medicine
DX: Z12.31 Encounter for screening mammogram for malignant neoplasm of breast (principal)
CPT/HCPCS: 77063; 77067

== ENCOUNTER 2019-03-21 09:00 | Outpatient (RCR) | payer MEDICARE, SELFPAY ==
[2019-03-11 00:58] VITALS: BP 187/86; PULSE 58; RESP 18; TEMP 36.9
[2019-03-14 08:56] VITALS: BP 148/60; PULSE 61; RESP 20; TEMP 36; BMI 34.0
--- NOTE | 2019-03-14 10:59 | PCM.WC.PN ---
(1) Deep dehiscence of operation wound Status: Acute Current Visit: Yes Qualifiers: Code(s): T81.32XA - Disruption of internal operation (surgical) wound, not elsewhere classified, initial encounter (2) Non-healing surgical wound Status: Acute Current Visit: Yes Qualifiers: Code(s): T81.89XA - Other complications of procedures, not elsewhere classified, initial encounter (3) Osteoarthritis deformans Status: Acute Current Visit: Yes Code(s): M19.90 - Unspecified osteoarthritis, unspecified site Type of Wound Date of Service: 03/14/19 Chief Complaint: Follow-up on a left anterior hip dehisced surgical wound History of Wound: 38-year-old white female that had left hip replacement surgery back in early November with an anterior entrance. Developed a dehisced wound at the distal end of the wound. Patient has been packing with Mesalt and seeing her regular surgeon weekly that finally referred her here. The area is extremely small deep dehisced area that looks clean there is no sign of redness pus does drain blood. Cultures were positive for staph aureus 3+. Patient was started on Bactrim DS twice daily for 10 days. Doing well with the Aquacel silver will continue packing with the roping. The wound appears to be smaller Progress of Wound: She has 1 small divot at the distal end of the ulcer. He will has depth of 0.2. We will continue with the Promogran. We will start her on Levaquin and see if that helps with healing she is so close to closing. - Physical Exam Vital Signs Temp Pulse Resp BP 96.8 F L 61 20 H 148/60 H 03/14/19 08:56 03/14/19 08:56 03/14/19 08:56 03/14/19 08:56 General: Oriented x3, Cooperative, Well developed HEENT: Atraumatic, PERRLA Oral: Moist Mucosa Neck: Supple, No JVD Lungs: Clear to auscultation, Normal air movement Cardiovascular: Regular rate, Regular Rhythm Abdomen: Bowel Sounds Present, Soft, Non Tender, No Hepato-splenomegaly, - - Left hip dehisced wound from surgery Extremities: No clubbing, No edema Wound Measurements and Assessment WC - Nurse 1 - General Ulcer Measurement Start: 03/14/19 08:55 Freq: Status: Active Protocol: Activity Type Activity Date Activity User E-Sign Co-Sign Detail Recorded Client Recorded Date Recorded By Document 03/14/19 08:56 DL [id number] 03/14/19 09:04 DL 03/14/19 08:56 Wound Center Nurse 1 [Ulcer Assessment] #1 Anterior Left Hip -Current Size (cm) - Length 0.3 -Current Size (cm) - Width 0.2 -Current Size (cm) - Depth 0.2 -Total Square Cm 0.06 -Photo Taken No -Exudate Amt None Present -Wound Margin Flat & Intact -Granulation Amt Small (1-33%) -Granulation Quality Red -Necrosis Amt None Present (0 %) -Structure Exposed N/A -Texture (Ruthy-wound Skin Appearance) Scarring -Moisture (Ruthy-wound Skin Appearance No Abnormality ) -Color (Ruthy-wound Skin Appearance) No Abnormality -Temperature (Ruthy-wound Skin No Abnormality Appearance) (Pt Warm) -Tenderness on Palpation (Ruthy-wound No Skin Appearance) -Ulcer Cleansing Rinsed/ Irrigated with Saline -Anesthetic Used 5% Lidocaine Gel WC - Nurse 2 - General Ulcer CM Notes Start: 03/14/19 08:55 Freq: Status: Active Protocol: Activity Type Activity Date Activity User E-Sign Co-Sign Detail Recorded Client Recorded Date Recorded By Document 03/14/19 09:18 MW [id number] 03/14/19 09:19 MW 03/14/19 09:18 Wound Center Nurse 2 [Procedure/Treatment] -Time 09:18 -Correct Patient Yes -Correct Side, Site, Position Yes -Correct Procedure Yes -Procedure Performed Yes -Type of Procedure Debridement -Clinical Debridement Subcutaneous -Post Debridement Size (cm) - Length 0.4 -Post Debridement Size (cm) - Width 0.2 -Post Debridement Size (cm) - Depth 0.2 -Total Square Cm 0.08 -Wound/Ulcer Outcome Not Healed -Ulcer Cleansing Rinsed/ Irrigated with Saline -Foul Odor after Cleansing No -Bioengineered Tissue No -Bleeding Controlled with Pressure -Offloading No -Treatment Response Procedure Tolerated Well [See Physician Procedure note for Specifics] Pain Scale: 0-10 Numeric [Pain] -Is Patient Pain Free? Yes Musculoskeletal: No Tenderness to Palpation of Joints or Extremities Lymphatic: No Cervical, Supraclavicular, or Inguinal Adenopathy Neurological: Cranial nerves II-XII grossly intact, Neuro grossly intact Psych/Mental Status: Normal Affect, Appropriate Debridement Note Post-Debridement Measurements/Treatment WC - Nurse 2 - General Ulcer CM Notes Start: 03/14/19 08:55 Freq: Status: Active Protocol: Activity Type Activity Date Activity User E-Sign Co-Sign Detail Recorded Client Recorded Date Recorded By Document 03/14/19 09:18 MW [id number] 03/14/19 09:19 MW 03/14/19 09:18 Wound Center Nurse 2 #1 Anterior Left Hip -Time 09:18 -Correct Patient Yes -Correct Side, Site, Position Yes -Correct Procedure Yes -Procedure Performed Yes -Type of Procedure Debridement -Clinical Debridement Subcutaneous -Post Debridement Size (cm) - Length 0.4 -Post Debridement Size (cm) - Width 0.2 -Post Debridement Size (cm) - Depth 0.2 -Total Square Cm 0.08 -Wound/Ulcer Outcome Not Healed -Ulcer Cleansing Rinsed/ Irrigated with Saline -Foul Odor after Cleansing No -Bioengineered Tissue No -Bleeding Controlled with Pressure -Offloading No -Treatment Response Procedure Tolerated Well Pain Scale: 0-10 Numeric Is Patient Pain Free? Yes Wound debrided: Left hip dehisced surgical wound Type of Debridement: Excisional debridement Anesthesia Used: 5% Lidocaine Gel Depth: Down to and including healthy tissue, in the subcutaneous layer Percentage of wound debrided: 100 Instrument Used: 3mm curette Tissue Removed: Fibrin Severity: Limited To Skin Breakdown Amount of bleeding with debridement: Mild Bleeding Controlled with: Compression and gauze Patient tolerated procedure well Assessment/Plan Active Problems Deep dehiscence of operation wound (Acute) Non-healing surgical wound (Acute) Osteoarthritis deformans (Acute) Assessment: Nonhealing surgical wound. Dehisced surgical wound left hip. History of osteoarthritis treated with Plaquenil Plan: Wash area with antibacterial soap. Promogran packed in wound base. Cover with gauze and tape. Start Levaquin 500 mg p.o. daily. Follow up in 1 week
[2019-03-21 09:08] VITALS: BP 148/64; PULSE 62; RESP 18; TEMP 36.3; BMI 34.0
--- NOTE | 2019-03-21 10:20 | PCM.WC.PN ---
(1) Deep dehiscence of operation wound Status: Acute Current Visit: Yes Qualifiers: Code(s): T81.32XA - Disruption of internal operation (surgical) wound, not elsewhere classified, initial encounter (2) Non-healing surgical wound Status: Acute Current Visit: Yes Qualifiers: Code(s): T81.89XA - Other complications of procedures, not elsewhere classified, initial encounter (3) Osteoarthritis deformans Status: Acute Current Visit: Yes Code(s): M19.90 - Unspecified osteoarthritis, unspecified site Type of Wound Date of Service: 03/21/19 Chief Complaint: Follow-up on a left anterior hip dehisced surgical wound History of Wound: 38-year-old white female that had left hip replacement surgery back in early November with an anterior entrance. Developed a dehisced wound at the distal end of the wound. Patient has been packing with Mesalt and seeing her regular surgeon weekly that finally referred her here. The area is extremely small deep dehisced area that looks clean there is no sign of redness pus does drain blood. Cultures were positive for staph aureus 3+. Patient was started on Bactrim DS twice daily for 10 days. Doing well with the Aquacel silver will continue packing with the roping. The wound appears to be smaller Progress of Wound: Today the wound is healed scabbed over no open area. She will be discharged from the wound center - Physical Exam Vital Signs Temp Pulse Resp BP 97.4 F L 62 18 148/64 H 03/21/19 09:08 03/21/19 09:08 03/21/19 09:08 03/21/19 09:08 General: Oriented x3, Cooperative, Well developed HEENT: Atraumatic, PERRLA Oral: Moist Mucosa Neck: Supple, No JVD Lungs: Clear to auscultation, Normal air movement Cardiovascular: Regular rate, Regular Rhythm Abdomen: Bowel Sounds Present, Soft, Non Tender, No Hepato-splenomegaly Extremities: No clubbing, No edema Wound Measurements and Assessment WC - Nurse 1 - General Ulcer Measurement Start: 03/14/19 08:55 Freq: Status: Active Protocol: Activity Type Activity Date Activity User E-Sign Co-Sign Detail Recorded Client Recorded Date Recorded By Document 03/21/19 09:08 DV [id number] 03/21/19 09:26 DV 03/21/19 09:08 Wound Center Nurse 1 [Ulcer Assessment] #1 Anterior Left Hip -Combined with other wound No -Current Size (cm) - Length 0.2 -Current Size (cm) - Width 0.6 -Current Size (cm) - Depth 0.1 -Total Square Cm 0.12 -Date of Last Picture (Recall this 03/21/19 field) -Photo Taken Yes -Epithelialization None Present -Tunneling No -Undermining/Tunneling No -Circular Undermining No -Classification - Thickness Full Thickness without Exposed Support Structure -Exudate Amt None Present -Wound Margin Fibrotic Scar, Thickened Scar -Slough/Fibrin No -Necrosis Amt None Present (0 %) -Structure Exposed N/A -Texture (Ruthy-wound Skin Appearance) Assessed, Scarring -Moisture (Ruthy-wound Skin Appearance Assessed ) -Color (Ruthy-wound Skin Appearance) No Abnormality, Assessed -Temperature (Ruthy-wound Skin No Abnormality Appearance) (Pt Warm) -Tenderness on Palpation (Ruthy-wound No Skin Appearance) -Ulcer Cleansing soap [Edema Assessment] -Lower Limb Edema Present No WC - Nurse 2 - General Ulcer CM Notes Start: 03/14/19 08:55 Freq: Status: Active Protocol: Activity Type Activity Date Activity User E-Sign Co-Sign Detail Recorded Client Recorded Date Recorded By Document 03/21/19 09:30 MW [id number] 03/21/19 09:30 MW 03/21/19 09:30 Wound Center Nurse 2 [Procedure/Treatment] #1 Anterior Left Hip -Time 09:30 -Correct Patient Yes -Correct Side, Site, Position Yes -Correct Procedure Yes -Procedure Performed No -Post Debridement Size (cm) - Length 0 -Post Debridement Size (cm) - Width 0 -Post Debridement Size (cm) - Depth 0 -Total Square Cm 0 -Wound/Ulcer Outcome Healed- Epithelialized [See Physician Procedure note for Specifics] Pain Scale: 0-10 Numeric [Pain] -Is Patient Pain Free? Yes Musculoskeletal: No Tenderness to Palpation of Joints or Extremities Lymphatic: No Cervical, Supraclavicular, or Inguinal Adenopathy Neurological: Cranial nerves II-XII grossly intact, Neuro grossly intact Psych/Mental Status: Normal Affect, Appropriate Debridement Note Post-Debridement Measurements/Treatment WC - Nurse 2 - General Ulcer CM Notes Start: 03/14/19 08:55 Freq: Status: Active Protocol: Activity Type Activity Date Activity User E-Sign Co-Sign Detail Recorded Client Recorded Date Recorded By Document 03/14/19 09:18 MW [id number] 03/14/19 09:19 MW Document 03/21/19 09:30 MW [id number] 03/21/19 09:30 MW 03/14/19 03/21/19 09:18 09:30 Wound Center Nurse 2 #1 Anterior Left Hip -Time 09:18 09:30 -Correct Patient Yes Yes -Correct Side, Site, Position Yes Yes -Correct Procedure Yes Yes -Procedure Performed Yes No -Type of Procedure Debridement -Clinical Debridement Subcutaneous -Post Debridement Size (cm) - Length 0.4 0 -Post Debridement Size (cm) - Width 0.2 0 -Post Debridement Size (cm) - Depth 0.2 0 -Total Square Cm 0.08 0 -Wound/Ulcer Outcome Not Healed Healed- Epithelialized -Ulcer Cleansing Rinsed/ Irrigated with Saline -Foul Odor after Cleansing No -Bioengineered Tissue No -Bleeding Controlled with Pressure -Offloading No -Treatment Response Procedure Tolerated Well Pain Scale: 0-10 Numeric Is Patient Pain Free? Yes Yes No debridement was completed today Assessment/Plan Active Problems Deep dehiscence of operation wound (Acute) Non-healing surgical wound (Acute) Osteoarthritis deformans (Acute) Assessment: Nonhealing surgical wound resolved. Dehisced surgical wound left hip resolved. History of osteoarthritis treated with Plaquenil Plan: Discharge from the wound center follow-up with your orthopedic surgeon.
== END 2019-04-10 23:59 ==
LOC: WC 09:00
PROVIDERS: Referring Provider Nurse Practitioner; Visit Provider Nurse Practitioner
DX: T81.31XA Disruption of external operation (surgical) wound, not elsewhere classified, initial encounter (principal); M19.90 Unspecified osteoarthritis, unspecified site; Z96.642 Presence of left artificial hip joint
CPT/HCPCS: 11042; 99213; G0463

== ENCOUNTER 2019-04-09 08:00 | Outpatient (RCR) | payer MEDICARE, SELFPAY ==
[2019-02-21 09:09] VITALS: BMI 34.0
--- NOTE | 2019-03-11 09:38 | HP.PTEVAL_ITS ---
Patient's Visit Information ABEL MÑUOZ is a 68 year old F referred to Physical Therapy by BERTIN ORDAZ with a diagnosis of R Torn RC. Date of Evaluation: 03/11/19 Physical Therapist: Flory Cabrera DPT - Visit Plan Frequency: 2x /Week Duration: 4 Weeks Plan: Focus on B UE/core/scapular strengthening/stabilization, improving shoulder ROM, improving posture, and decreasing pain. 03/11/19: HEP Prescribed: Scapular Retractions, B Ext. Rot., Serratus Wall Presses, Shoulder Isometrics - Subjective Findings: Shoulder pain for quite some time (can't remember when), cortisone shot 2 years ago but didn't help. Surgeon believes there is a hole in both rotator cuffs. No TALHA, pain in both shoulders (R>L). Osteoarthritis. Depending on the pain can prevent her from performing activities simple as picking things up, drinking a glass of water, washing hair. X-rays - negative. Describes pain as an ache at B shoulder. Pain disrupts sleep. Worst: 8/10 Aggravting Factors: using it, pulling weeds, self-care activities, carrying items, ADL's. Best: 2/10 Relieving Factors: Massage (massage therapist 1x/month), aleve. Marco N/T. Radiating pain in both sides of neck (R>L), intermitten radiating pain down the arm to elbow (R>L). 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 Plays with [employer] 2x/week. Typical activities: consist of appointments, shopping,. 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 Is able to drive w/out pain. Occupation: Retired. R hand dominant. Wants an MRI was reffered to try PT first. Has had headaches associated w/ shoulder pain, marco any dizziness/falls. PMH/Meds: See chart - Objective Posture: FH, RS - corrected w/ V/C but not maintained. Gait: No deviations noted, good arm swing, trunk rot. ROM: Wrist/Elbow WFL, Shoulder Flex./Abd./Int. Rot. WFL (painful at end-range), Ext. Rot. - 45 degrees & painful. Strength: [employer]: WNL B, Elbow: L flex/ext 5/5, R flex/ext 4-/5 & painful. Shoulder: L 4+/5 mild pain, R 4-/5 w/ significant pain w/ testing. Finger Dexterity: WNL. Sensation: WNL to gross B touch. Palpation: TTP at B infraspinatus, supraspinatus & R bicepital groove. Special Tests: Empty Can/Full Can B (+), Ext. Rot. Lag B (+), Reach Back B (+), Impingement R (+), Impingement L (-) R Yergasons (+) - Goals Goal 1:: Pt. will be I w/ HEP & progression Goal Time Frame: 4-6 Weeks Goal 2:: Pt. will demo 4+/5 strength in B shoulders Goal Time Frame: 4-6 Weeks Goal 3:: Pt. will maintain proper posture t/o tx session to demo improved core/scapular strength. Goal Time Frame: 4-6 Weeks - Rehabilitation Potential Physical Therapy Diagnosis: Presents w/ hypomobility, poor posture, decreased UE/core strength, & impaired muscle performance which leads to pain w/ ADL's. Rehabilitation Potential: Good - Anticipated Interventions Patient/Client Instruction: Educate patient on: Condition For the Purpose of:: To decrease pain Therapeutic Exercise to Include: Strength training, Endurance training, Body mechanics, Postural training, Passive ROM, Active ROM, Scapular Strength/Stabilization For the Purpose of:: To improve muscle performance and motor function TENS: Yes Cryotherapy (ice pack, ice massage): Yes Thermo therapy (hot pack): Yes Ultrasound (thermal/non thermal): Yes For the Purpose of:: To decrease pain Thank you for the opportunity to evaluate your patient. For Medicare and Medicare HMO plans, please review the plan of care and approve it. It will need to be FAXED BACK to us at [phone] for Medicare purposes. For Medicare only, by signing this I certify the plan of care. Please let me know if there are questions or concerns regarding this plan of care. Physician Signature: Date:
--- NOTE | 2019-05-27 11:52 | HP.PTDCSUM_ITS ---
HP - PT D/C Summary It has been my pleasure to treat ABEL MUÑOZ under orders from BERTIN ORDAZ, for the diagnosis of R Torn RC for a total of 8 visit(s). Discharge Date: Please see the following information for a summary of their discharge status. - Subjective Subjective: pt. feels therapy has been good , but hasn't made much of a differeence in terms of pain & what she's able to do. Some activities, such as putting her coat on. - Pain Bilat shoulders Pain Intensity (Out of 10): 0 - Overall Improvement % Improvement: 10 - Objective Objective/Function: Posture: FH, RS - corrected w/ V/C but not maintained. Gait: No deviations noted, good arm swing, trunk rot. ROM: Shoulder AROM WFL but has to push through pain to reach end-range. Pain begins at about 90 degrees for flexion/abd. Ext. rot. to neutral, Int. Rot. WFL pain ful w/ all testing. Strength: Patient Case Coordinator: WNL B, Elbow: L flex/ext 5/5, R flex/ext 4-/5 & painful. Shoulder: L 4+/5 mild pain, R 4-/5 w/ significant pain w/ testing. Finger Dexterity: WNL. Sensation: WNL to gross B touch. Palpation: TTP at B infraspinatus, supraspinatus & R bicepital groove. [ End ] - Goals Goal 1:: Pt. will be I w/ HEP & progression Goal 2:: Pt. will demo 4+/5 strength in B shoulders Goal 3:: Pt. will maintain proper posture t/o tx session to demo improved core/scapular strength. - Plan Plan: 04/09/19 Referred back to MD for further evaluation. - D/C Information If there are questions or concerns regarding this patient's physical therapy, please feel free to call me at [phone]. Thank you for the referral of this patient. Sincerely, Flory Cabrera DPT
== END 2019-04-09 19:00 | disposition home or self-care (01) ==
LOC: PT 08:00
DX: M75.121 Complete rotator cuff tear or rupture of right shoulder, not specified as traumatic (principal)
CPT/HCPCS: 97110; 97161; 97164

== ENCOUNTER → 2019-04-28 | Outpatient (CLI) | payer MEDICARE, SELFPAY ==
--- NOTE | 2019-04-28 07:03 | MRI_ITS ---
STUDY: MRI RIGHT SHOULDER REASON FOR EXAM: Shoulder and upper arm pain for 2 years, limited range of motion, no specific injury. TECHNIQUE: Standardized fat and water weighted pulse sequences were obtained in all 3 orthogonal planes. COMPARISON: None. FINDINGS: There is a full-thickness tear of the supraspinatus and infraspinatus tendons retracted approximately 2.9 cm (T2 coronal images 6-13). There is mild subscapularis tendinosis (T2 axial image 11) without discrete tendon tear. Normal teres minor tendon. There is atrophy with partial fat replacement of the supraspinatus muscle (T2 axial image 5). There is atrophy with partial fat replacement of the infraspinatus muscle (T2 axial image 13). Normal subscapularis muscle. Normal teres minor muscle. There is glenohumeral arthrosis with small marginal osteophytes of the humeral head and chondral thinning (T2 coronal image 10). There is superior migration of the humeral head secondary to the retracted rotator cuff tear. There is tendinosis of the intracapsular long biceps tendon (T2 sagittal images 13-17). There is degeneration of the labrum. Normal capsulo- ligamentous complex. There is acromioclavicular arthrosis with mild hypertrophic changes (T2 sagittal image 16). There is a Type II morphology (curved), with a neutral orientation. There is no subacromial-subdeltoid bursal fluid. There is a small volume of subcoracoid bursal fluid Normal visualized coracohumeral and coracoacromial ligaments. Normal deltoid muscle. Normal trapezius muscle. MRI/Upper Ext Joint Only(Routine) IMPRESSION: Full-thickness tear of the supraspinatus and infraspinatus tendons. Mild subscapularis tendinosis. Atrophy of the supraspinatus and infraspinatus muscles. Glenohumeral arthrosis with degeneration of the labrum. Tendinosis of the long biceps tendon. Acromioclavicular arthrosis. Small volume of subcoracoid bursal fluid. Electronically Signed: Nj Aguilar MD at 14:18 EST Tel , Service support ,
== END | disposition home or self-care (01) ==
LOC: MRI 06:57
PROVIDERS: Referring Provider Orthopaedic Surgery; Visit Provider Orthopaedic Surgery
DX: M75.41 Impingement syndrome of right shoulder (principal); M75.121 Complete rotator cuff tear or rupture of right shoulder, not specified as traumatic
CPT/HCPCS: 73221

== ENCOUNTER 2019-10-21 09:30 | Outpatient (RCR) | payer MEDICARE, SELFPAY ==
--- NOTE | 2019-07-01 11:58 | HP.PTEVAL ---
Patient's Visit Information ABEL MUÑOZ is a 68 year old F referred to Physical Therapy by Emre Malcolm PA-C with a diagnosis of INTERVERTEBRAL DISC DEG - LUMBAR. Date of Evaluation: 07/01/19 Physical Therapist: Sierra Nelson PT, Cert MDT - Visit Plan Frequency: 2-3x /Week Duration: 4-6 Weeks Plan: AQUATIC THERAPY WHEN ABLE (BUT LAND UNTIL TOE IS HEALED) FOR POSTURE CORRECTION/STRENGTHENING, INSTRUCTION IN APPROPRIATE BODY MECHANICS AND ACTIVITY MODIFICATIONS. DLS WITH A NEUTRAL SPINE. KJ LE ROM, STRETCHING AND STRENGTHENING. HEP INSTRUCTION. - Subjective Findings: Work/Leisure: RETIRED. Disability: NO. Present symptoms: INTERMITTENT LOW BACK PAIN. RIGHT LE PAIN, NUMBNESS AND TINGLING TO FOOT. CALF PAIN IS GETTING BAD AND FOOT TINGLES ALL THE TIME. Present since: CHRONIC. Pain Scale: WORST 8/10, LEAST 4/10. Currently: 4/10 - GETTING WORSE. Commenced as a result of: NO APPARENT REASON. Worse: STANDING, WALKING, MOPPING, TWISTING, LIFTING. Better: HEATING PAD, LYING DOWN, SITTING IN A SOFT CHAIR WITH FEET UP. Disturbed sleep: YES. Previous history/Previous treatment: UNREMARKABLE EXCEPT CHIROPRACTOR X ABOUT 3 TO 4 MONTHS A LONG TIME AGO - DID NOT FIND IT HELPFUL. NO BACK SURGERY. NO PAIN MGMT. NO TAMMY'S. YEARS OF SX'S OFF AND ON. Coughing/sneezing/straining: POSITIVE. Gait: RIGHT BIG TOE SURGERY TODAY. NO WB RESTICTIONS. LIMPING ON RIGHT LEG. BENT OVER A LITTLE BIT. WALKING WAY SLOWER THAN NORMAL AND NOT JUST BECAUSE OF THE TOE. DISTANCE LIMITED. NO ASSISTIVE DEVICES. Difficulty initiating urinatin: NO. Accidents: NO. Unexplained weight loss: NO. Imaging: LUMBAR X-RAY LAST WEEK AND MRI PENDING THIS SUNDAY. MRI ORDERED BASED ON THE X-RAY RESULTS. X-RAYS SHOWED SIGNIFICANT DEGENERATION AND ARTHRITIS. PMH/Recent major surgery: ARTHRITIS. LTHR SPRING 2018. KJ TKR'S. RIGHT HIP ARTHRITIC TOO AND NEEDS REPLACED BUT CLEARING SPINE FIRST. UNREPAIRED RIGHT ROTATOR CUFF - GETS INJECTIONS. - Objective Sitting/Standing Posture: POOR. Lordosis: REDUCED. Active Correction of posture: WORSE. Other Observations: INDEP GAIT INTO PT WITHOUT ANY ASSISTIVE DEVICES OR LOSS OF BALANCE. DECREASED CADANCE, NARROW BASE OF SUPPORT, SHORT KJ STRIDE LENGTH AND QUICK STEPS. Motor deficit: KJ LE'S GROSSLY 5/5 WITH MMT'ING EXCEPT HIPS GRADED 4-/5. Sensory deficit: DECREASED LIGHT TOUCH RIGHT FOOT COMOPARED TO LEFT. ROM deficit: KJ LE'S WFL. Dural Signs: POSITIVE RIGHT LE. Lumbar mvmt loss: flex - NIL. ext - RAMIRO - PERIPHERALIZES SX'S. R SG - MOD. L SG - MOD - MILDLY PERIPHERALIZES SX'S. Core strength: POOR. Palpation: NO ACUTE LUMBAR, SACRAL OR HIP TENDERNESS TODAY. TREATMENT: NEUROMUSCULAR REEDUCATION - RETRAINING OF MVMT AND POSTURE FOR SITTING, LYING AND STANDING ACTIVITIES. - Goals Goal 1:: DECREASE C/O BACK AND RIGHT LE SX'S. Goal Time Frame: 4-6 Weeks Goal 2:: IMPROVE PERSONAL CARE, LIFTING, WALKING, SITTING, STANDING, SLEEP, SOCIAL LIFE, TRAVEL AND HOMEMAKING FUNCITON. Goal Time Frame: 4-6 Weeks Goal 3:: INSTRUCT IN PROPHYLAXIS Goal Time Frame: 4-6 Weeks - Rehabilitation Potential Rehabilitation Potential: Fair - Anticipated Interventions Patient/Client Instruction: Educate patient on: Condition, Plan of Care, Risk Factors, Benefits of Fitness Program For the Purpose of:: To improve self management Therapeutic Exercise to Include: Body mechanics, Postural training, Flexibilty training, Neuromotor development, In an aquatic setting, Dynamic Lumbar Stabilization For the Purpose of:: To decrease pain, To increase ROM, To improve muscle performance and motor function, To increase tolerance to activity/condition/position, To improve ability of physical actions for home/community/work/leisure Thank you for the opportunity to evaluate your patient. For Medicare and Medicare HMO plans, please review the plan of care and approve it. It will need to be FAXED BACK to us at [phone] for Medicare purposes. For Medicare only, by signing this I certify the plan of care. Please let me know if there are questions or concerns regarding this plan of care. Physician Signature: Date:
--- NOTE | 2019-07-21 11:53 | HP.PTREVAL ---
Emre Malcolm PA-C, It has been my pleasure to treat ABEL MUÑOZ over the last 9 visits for INTERVERTEBRAL DISC DEG - LUMBAR. Please see the progress note below for an update on the physical therapy plan of care! Subjective: PATIENT REPORTS SHE HAS FOLLOW UP WITH HER FOOT DOCTOR TOMORROW. STILL HAS NOT BEEN ABLE TO GET IN THE WATER DUE TO HER RIGHT TOE. STATES THE LAND NIURKA'T HAVE BEEN GOING REALLY WELL OVER-ALL. SHE STATES SHE DOES HAVE SOME LEFT HIP PAIN NOW SINCE DOING ONE OF HER STRETCHES AT HOME SUNDAY BUT SHE HAS HAD THIS PAIN BEFORE AND THINKS IT IS JUST FLARED UP A BIT. STATES SHE HAD BEEN DOING THAT STRETCH WITHOUT ANY DIFFICULTY UNTIL THEN. PATIENT REPORTS HER RIGHT CALF PAIN IS BETTER. IF SHE TRIES TO WALK A LOT LIKE AT THE [facility] SHE GETS CALF PAIN. HAD LUMBAR MRI - STATES JENNIFER MALCOLM REFERRED HER TO PAIN MGMT WITH DR. SALAS FOR INJECTIONS AND SHE IS IN THE PROCESS OF TRYING TO GET THAT SET UP. SHE REPORTS HER MRI SHOWED STENOSIS AND BULGING. PATIENT HAS NOT HAD A SPINE SURGICAL CONSULT YET AND ONE HAS NOT BEEN ORDERED. PATIENT REPORTS THE ONLY NUMBNESS OR TINGLING SHE HAS NOW IS IN HER RIGHT FOOT. THE TINGLING IN HER RIGHT FOOT IS CONSTANT AND UNCHANGING. Objective/Function: PATIENT WAS SEEN TODAY FOR RE-ASSESSMENT OF PROGRESS TOWARD THE SET PT GOALS AND THE NEED FOR FURTHER PHYSICAL THERAPY VS READINESS FOR DISCHARGE. SHE IS MAKING SLOW PROGRESS (WORSENING BEFORE STARTING PT) AND IS A GOOD CANDIDATE TO CONTINUE PT. PATIENT IS AGREEABLE. NEW ORDER TO CONTINUE REQUESTED BY PHONE CALL TO HANH AT [facility] TODAY. UPON EXAM TODAY: INDEP GAIT INTO PT TODAY USING STRAIGHT CANE SUGGESTED BY THIS PT AT INITIAL EVAL. DECREASED CADANCE, NARROW BASE OF SUPPORT, SHORT KJ STRIDE LENGTH AND QUICK STEPS. MILD LIMP ON LLE. DEVIATIONS GREATLY IMPROVE WITH CANE VS NO CANE. Motor deficit: KJ LE'S GROSSLY 5/5 WITH MMT'ING EXCEPT HIPS GRADED 4-/5. NO INCREASED KJ HIP PAIN WITH MMT'ING TODAY. Sensory deficit: KJ LE LIGHT TOUCH SENSATION INTACT AND SYMMETRICAL EXCEPT FEET NT. PATIENT IS GOING TO FOOT DOCTOR TOMORROW. ROM deficit: KJ LE'S WFL AND NO C/O INCREASED LEFT HIP PAIN WITH LEFT HIP TESTING TODAY. Dural Signs: NEGATIVE KJ LE'S TODAY. Lumbar mvmt loss: flex - NIL. ext - MOD - NO PERIPHERALIZATION WITH TESTING TODAY. R SG - MOD - PULLS IN LOW BACK. L SG - MOD - PULLS IN LOW BACK A LITTLE BIT BUT NOT MUCH GOING TO THE RIGHT. Core strength: POOR. Palpation: NO ACUTE LUMBAR, SACRAL OR HIP TENDERNESS TODAY BILATERALLY. AT CONCLUSION OF SESSION PATIENT REPORTS SHE IS NOT WORRIED ABOUT HER LEFT HIP PAIN STATING IT IS NOT OUT OF THE ORDINARY FOR HER. Plan Plan: AQUATIC THERAPY WHEN ABLE (BUT LAND UNTIL TOE IS HEALED - has paperwork complete for the pool) FOR POSTURE CORRECTION/STRENGTHENING, INSTRUCTION IN APPROPRIATE BODY MECHANICS AND ACTIVITY MODIFICATIONS. DLS WITH A NEUTRAL SPINE. KJ LE ROM, STRETCHING AND STRENGTHENING. HEP INSTRUCTION. Goals Goal 1:: DECREASE C/O BACK AND RIGHT LE SX'S. Goal Time Frame: 4-6 Weeks Goal Progress: Progressing Goal 2:: IMPROVE PERSONAL CARE, LIFTING, WALKING, SITTING, STANDING, SLEEP, SOCIAL LIFE, TRAVEL AND HOMEMAKING FUNCITON. Goal Time Frame: 4-6 Weeks Goal Progress: Progressing Goal 3:: INSTRUCT IN PROPHYLAXIS Goal Time Frame: 4-6 Weeks Goal Progress: Progressing Anticipated Interventions Patient/Client Instruction: Educate patient on: Condition, Plan of Care, Risk Factors, Benefits of Fitness Program For the Purpose of:: To improve self management Therapeutic Exercise to Include: Body mechanics, Postural training, Flexibilty training, Neuromotor development, In an aquatic setting, Dynamic Lumbar Stabilization For the Purpose of:: To decrease pain, To increase ROM, To improve muscle performance and motor function, To increase tolerance to activity/condition/position, To improve ability of physical actions for home/community/work/leisure Please do not hesitate to contact me at [phone] by phone or if you have questions or concerns regarding this new plan of care! Sincerely, Sierra Nelson, PT, Cert MDT
--- NOTE | 2019-08-26 11:49 | HP.PTREVAL_ITS ---
Emre Malcolm PA-C, It has been my pleasure to treat ABEL MUÑOZ over the last 17 visits for INTERVERTEBRAL DISC DEG - LUMBAR. Please see the progress note below for an update on the physical therapy plan of care! Subjective: PATIENT REPORTS THE THERAPY IN THE WATER WAS GOOD. PATIENT REPORTS SHE THINKS THE POOL HELPED WITH HER BALANCE AND STRENGTH BUT NOT THE PAIN. WENT TO PAIN MGMT LAST MONTH AND TAMMY PENDING WITH DR. SALAS TOMORROW. FOLLOWED UP WITH EXPERIMENTAL BOX TESTER FOR RIGHT TOE. X-RAYS WERE FINE. STATES HER TOE PAIN IS MUCH BETTER. BUT IF SHE WALKS MUCH THE ARCH OF HER FOOT REALLY HURTS. Objective/Function: PATIENT WAS SEEN TODAY FOR RE-ASSESSMENT OF PROGRESS TOWARD THE SET PT GOALS AND THE NEED FOR FURTHER PHYSICAL THERAPY VS READINESS FOR DISCHARGE. SHE IS MAKING SMALL IMPROVEMENTS WITH STRENGTH BUT NOT PAIN. INJECTION PENDING TOMORROW. LUCY IS A GOOD CANDIDATE TO CONTINUE PT ON LAND IN CONJUNCTION WITH TAMMY TO TRY TO TRANSITION TO INDEP HOME AND/OR GYM PROGRAM. PATIENT IS AGREEABLE. UPON EXAM TODAY: INDEP GAIT INTO PT TODAY USING STRAIGHT CANE SUGGESTED BY THIS PT AT INITIAL EVAL. DECREASED CADANCE, NARROW BASE OF SUPPORT, SHORT KJ STRIDE LENGTH AND QUICK STEPS. MILD LIMP ON LLE. DEVIATIONS GREATLY IMPROVE WITH CANE VS NO CANE. Motor deficit: KJ LE'S GROSSLY 5/5 WITH MMT'ING EXCEPT HIPS GRADED 4/5. NO INCREASED KJ HIP PAIN WITH MMT'ING TODAY. Sensory deficit: KJ LE LIGHT TOUCH SENSATION INTACT AND SYMMETRICAL EXCEPT FEET NT. PATIENT IS GOING TO FOOT DOCTOR TOMORROW. ROM deficit: KJ LE'S WFL AND NO C/O INCREASED LEFT HIP PAIN WITH LEFT HIP TESTING TODAY. Dural Signs: NEGATIVE KJ LE'S TODAY. Lumbar mvmt loss: flex - NIL. ext - MOD - NO PERIPHERALIZATION WITH TESTING TODAY BUT IT DOES INCREASE CENTRAL LBP. R SG - MOD - NE. L SG - MOD - PULLS IN LOW BACK. Core strength: POOR. Palpation: NO ACUTE LUMBAR, SACRAL OR HIP TENDERNESS TODAY BILATERALLY. Plan Plan: CONTINUE PT 3X'S A WEEK X 10 VISITS AFTER TAMMY FOR GYM AND HEP INSTRUCTION TOLERATED TO HELP MEET SET PT GOALS. PATIENT IS AGREEABLE. Goals Goal 1:: DECREASE C/O BACK AND RIGHT LE SX'S. Goal Time Frame: 4-6 Weeks Goal Progress: Not Progressing Goal 2:: IMPROVE PERSONAL CARE, LIFTING, WALKING, SITTING, STANDING, SLEEP, SOCIAL LIFE, TRAVEL AND HOMEMAKING FUNCITON. Goal Time Frame: 4-6 Weeks Goal Progress: Not Progressing Goal 3:: INSTRUCT IN PROPHYLAXIS Goal Time Frame: 4-6 Weeks Goal Progress: Not Progressing Anticipated Interventions Patient/Client Instruction: Educate patient on: Condition, Plan of Care, Risk Factors, Benefits of Fitness Program For the Purpose of:: To improve self management Therapeutic Exercise to Include: Body mechanics, Postural training, Flexibilty training, Neuromotor development, In an aquatic setting, Dynamic Lumbar Stabilization For the Purpose of:: To decrease pain, To increase ROM, To improve muscle performance and motor function, To increase tolerance to activ ity/condition/position, To improve ability of physical actions for home/community/work/leisure Please do not hesitate to contact me at [phone] by phone or if you have questions or concerns regarding this new plan of care! Sincerely, Sierra Nelson, PT, Cert MDT
--- NOTE | 2019-09-25 11:47 | HP.PTREVAL_ITS ---
Emre Malcolm PA-C, It has been my pleasure to treat ABEL MUÑOZ over the last 25 visits for INTERVERTEBRAL DISC DEG - LUMBAR. Please see the progress note below for an update on the physical therapy plan of care! Subjective: PATIENT REPORTS SHE DECIDED SHE JUST WANTED TO GO SOMEWHERE AFTER THERAPY SUNDAY SO SHE DROVE ABOUT 15 MINUTES AND WENT FOR A WALK AT A PARK. SHE REPORTS SHE SAT DOWN TO REST ON A BENCH AND THEN SHE HAD SUDDEN INCREASED PAIN THAT MADE IT DIFFICULT FOR HER TO EVEN GET BACK TO HER CAR. STATES IT HAS BEEN FLARED UP EVER SINCE. PATIENT REPORTS SHE FELT LIKE LAST PT SESSION WENT FINE AND SHE MUST HAVE OVER-DID-IT ON THE WALK. PATIENT REPORTS SHE REALLY FEELS LIKE PT IS STILL HELPING HER WITH HER STENGTH AND BUILDING HER UP. PATIENT REPORTS SHE FEELS LIKE SHE NEEDS MORE THAN WHAT SHE CAN DO ON HER OWN AT HOME TO CONTINUE TO IMRPOVE. NO FURTHER FOLLOW UP SCHEDULED WITH PAIN MGMT UNTIL OCT 23 2019. PATIENT ALSO REPORTS LEFT WRIST FLARE UP - X-RAYS AT [facility] ABOUT A WK AGO. STATES THEY SAW AN ABNORMALITY. MRI YESTERDAY. NIURKA'T WITH SURGEON PENDING OCT 10 2019. STATES HER LEFT WRIST PAIN STARTED FOR NO APPARENT REASON. Objective/Function: PATIENT WAS SEEN TODAY FOR RE-ASSESSMENT OF PROGRESS TOWARD THE SET PT GOALS AND THE NEED FOR FURTHER PHYSICAL THERAPY VS READINESS FOR DI KARISSA. SHE IS MAKING SMALL IMPROVEMENTS WITH STRENGTH BUT NOT PAIN. SHE IS IN A FLARE UP RIGHT NOW WITH INCREASED RIGHT LOWER LEG PAIN WHICH PATIENT RELATES TO OVER-DOING IT WALKING AFTER PT LAST SUNDAY. LUCY IS A GOOD CANDIDATE TO CONTINUE PT ON LAND TO HELP MANAGE FLARE UP AND BECAUSE INDEP POOL AND GYM EX IS NOT AN OPTION RIGHT NOW DUE TO THE VIRUS. PATIENT IS AGREEABLE. UPON EXAM T GIRAM: INDEP GAIT INTO PT TODAY USING STRAIGHT CANE SUGGESTED BY THIS PT AT INITIAL EVAL. DECREASED CADANCE, NARROW BASE OF SUPPORT, SHORT KJ STRIDE LENGTH AND QUICK STEPS. MILD LIMP ON LLE. DEVIATIONS STILL GREATLY IMPROVE WITH CANE VS NO CANE. HAS BEEN USING CANE CONSISTANTLY. WEARING BRACE ON LEFT WRIST NOW AND STATES BRACE HELPS A LOT. Motor deficit: KJ LE'S GROSSLY 5/5 WITH MMT'ING EXCEPT HIPS GRADED 4/5. NO INCREASED KJ HIP PAIN WITH MMT'ING TODAY. Sensory deficit: KJ LE LIGHT TOUCH SENSATION INTACT AND SYMMETRICAL EXCEPT FEET NT. ROM deficit: KJ LE'S WFL AND NO C/O INCREASED LEFT HIP PAIN WITH LEFT HIP TESTING TODAY. Dural Signs: NEGATIVE KJ LE'S TODAY. Lumbar mvmt loss: flex - NIL - DECREASES BACK PAIN AND EASES THE FOOT A LITTLE BIT. ext - MOD - NE. R SG - MOD - PERIPHERALIZES SX'S. L SG - MOD - NE. Core strength: POOR. Palpation: NO ACUTE LUMBAR, SACRAL OR HIP TENDERNESS TODAY BILATERALLY. OTHER: NEGATIVE HOMANS SIGN. PATIENT TOLERATED NEW EX'S WELL TODAY. ONLY ABLE TO TOLERATE SMALL ROM TO LEFT WITH LTR THOUGH TO AVOID GROIN PAIN. Plan Plan: *NO LEFT UE USE IN PT*. CONTINUE PT 2-3 TIMES A WK X 4-6 WKS (10 VISITS) FOR POSTURE CORRECTION/STRENGTHENING, INSTRUCTION IN APPROPRIATE BODY MECHANICS AND ACTIVITY MODIFICATIONS. DLS WITH A NEUTRAL SPINE. KJ LE ROM, STRETCHING AND STRENGTHENING. HEP INSTRUCTION. Goals Goal 1:: DECREASE C/O BACK AND RIGHT LE SX'S. Goal Time Frame: 4-6 Weeks Goal Progress: Progressing Goal 2:: IMPROVE PERSONAL CARE, LIFTING, WALKING, SITTING, STANDING, SLEEP, SOCIAL LIFE, TRAVEL AND HOMEMAKING FUNCITON. Goal Time Frame: 4-6 Weeks Goal Progress: Progressing Goal 3:: INSTRUCT IN PROPHYLAXIS Goal Time Frame: 4-6 Weeks Goal Progress: Progressing Anticipated Interventions Patient/Client Instruction: Educate patient on: Condition, Plan of Care, Risk Factors, Benefits of Fitness Program For the Purpose of:: To improve self management Therapeutic Exercise to Include: Body mechanics, Postural training, Flexibilty training, Neuromotor development, In an aquatic setting, Dynamic Lumbar Stabilization For the Purpose of:: To decrease pain, To increase ROM, To improve muscle performance and motor function, To increase tolerance to activity/condition/position, To improve ability of physical actions for home/community/work/leisure Please do not hesitate to contact me at [phone] by phone or Fax: if you have questions or concerns regarding this new plan of care! Sincerely, Sierra Nelson, PT, Cert MDT
--- NOTE | 2019-10-21 11:02 | HP.PTDCSUM_ITS ---
It has been my pleasure to treat ABEL MUÑOZ referred by Emre Malcolm PA-C, with the diagnosis of INTERVERTEBRAL DISC DEG - LUMBAR for a total of 35 visit(s). Discharge Date: Please see the following information for a summary of their discharge status. Subjective: NIURKA'T PENDING WITH DR. SALAS SUNDAY TO CONSIDER MORE LUMBAR INJECTIONS. 11/06/19 FOLLOW UP WITH FINISHING LAB TECHNICIAN AND WILL DISCUSS WRIST - MY WRIST IS GOOD IF I DON'T DO ANYTHING LIKE TYPING. PATIENT REPORTS HER TOE INJECTION IS CLEARED UP BUT HER TOE STILL GETS FREEZING COLD HOWEVER IT ISN'T FREQUENT. OVER-ALL SHE IS NOT SEEING A CHANGE IN HER FOOT PAIN (BALL OF HER FOOT), IT ALSO FEELS TINGLING AND NUMB. HER FOOT HURTS JUST TO WALK SHORT DISTANCES. SHE REPORTS HER UPPER BACK FEELS STRONGER AND SHE CAN SEE THAT AT HOME WITH BEING ABLE TO DO MORE THINGS BUT HER LOW BACK IS HURTING ALL THE TIME. PATIENT ALSO STILL REPORTS RIGHT GROIN AND CALF PAIN. PATIENT IS GOING TO FO LLOW UP WITH DR. LOPES NEXT WEEK AND THAT IS WHO SHE STARTED WITH FOR HER LOW BACK. NO FURTHER FOLLOW UP PENDING WITH DR. BERNARD YET FOR RIGHT HIP. OVER-ALL PATIENT REPORTS SHE IS NOT WORSE BUT NOT MUCH BETTER. PATIENT REPORTS SHE WOULD LIKE TO TRY ANOTHER BACK INJECTION AND THEN SHE WOULD LIKE TO GET HER RIGHT HIP REPLACED. NO BACK SURGERY HAS BEEN RECOMMENDED AT THIS POINT. PATIENT REPORTS HER HOME EX'S HELP AND SHE PLANS TO CONTINUE THEM WHILE SEEKING THESE OTHER TREATMENTS. right leg Pain Intensity (Out of 10): 2 right toe Pain Intensity (Out of 10): 0 low back Pain Intensity (Out of 10): 3 LEFT HIP Pain Intensity (Out of 10): 0 R GROIN Pain Intensity (Out of 10): 1 % Improvement: 20 Objective/Function: PATIENT WAS SEEN TODAY FOR RE-ASSESSMENT OF PROGRESS TOWARD THE SET PT GOALS AND THE NEED FOR FURTHER PHYSICAL THERAPY VS READINESS FOR DISCHARGE. SHE HAS MADE SMALL IMPROVEMENTS WITH STRENGTH BUT NOT PAIN. UPON EXAM TODAY: INDEP GAIT INTO PT TODAY WITHOUT ASSISTIVE DEVICE AND WADDLE TYPE GAIT PATTERN, DECREASED CADANCE, NARROW BASE OF SUPPORT, SHORT KJ STRIDE LENGTH AND QUICK STEPS. MILD LIMP ON LLE. Motor deficit: KJ LE'S GROSSLY 5/5 WITH MMT'ING EXCEPT HIPS GRADED 4/5. NO INCREASED KJ HIP PAIN WITH MMT'ING TODAY. Sensory deficit: KJ LE LIGHT TOUCH SENSATION INTACT AND SYMMETRICAL. ROM deficit: KJ LE'S WFL AND NO C/O INCREASED LEFT HIP PAIN WITH LEFT HIP TESTING. Dural Signs: NEGATIVE KJ LE'S TODAY. Lumbar mvmt loss: flex - NIL - DECREASES BACK PAIN. ext - MOD - INCREASES RIGHT GROIN PAIN AND LBP. R SG - MOD - NE. L SG - MOD - NE. Core strength: POOR Goal 1:: DECREASE C/O BACK AND RIGHT LE SX'S. Goal Progress: Not Progressing Goal 2:: IMPROVE PERSONAL CARE, LIFTING, WALKING, SITTING, STANDING, SLEEP, SOCIAL LIFE, TRAVEL AND HOMEMAKING FUNCITON. Goal Progress: Not Progressing Goal 3:: INSTRUCT IN PROPHYLAXIS Goal Progress: Goal Met Plan: D/C TO HEP. PATIENT AGREEABLE. If there are questions or concerns regarding this patient's physical therapy, please feel free to call me at [phone]. Thank you for the referral of this patient. Sincerely, Sierra Nelson, PT, Cert MDT
== END 2019-10-21 19:00 | disposition home or self-care (01) ==
LOC: PT 09:30
PROVIDERS: Referring Provider Physician Assistant; Visit Provider Physician Assistant
DX: M51.36 Other intervertebral disc degeneration, lumbar region (principal)
CPT/HCPCS: 97110; 97112; 97113; 97162; 97164; 97530

== ENCOUNTER → 2019-11-10 10:08 | Outpatient (CLI) | payer MEDICARE, SELFPAY ==
[2019-11-10 13:13] LABS: Thyroid Stim Hormone (TSH) 2.56 uIU/mL (0.358-3.74)
== END ==
PROVIDERS: Referring Provider Family Medicine; Visit Provider Family Medicine
DX: E03.9 Hypothyroidism, unspecified (principal)
CPT/HCPCS: 36415; 84443

== ENCOUNTER 2020-01-05 13:32 | Emergency (ER) | payer MEDICARE, SELFPAY ==
[2020-01-05 13:33] VITALS: BP 158/73; PULSE 78; RESP 18; TEMP 36.6; O2SAT 98; BMI 38.0
--- NOTE | 2020-01-05 14:14 | CT_ITS ---
STUDY: CT ABDOMEN AND PELVIS WITH CONTRAST REASON FOR EXAM: Female, 69 years old. JOSEPH/NAUSEA. Abdomen, back and muscle pain. Pt had lumbar laminectomy 12/16/19. Prior cholecystectomy and lt hip replacement RADIATION DOSAGE (If Supplied By Facility): CTDIvol = ( 15.33 ) mGy, DLP = ( 890.63 ) mGycm TECHNIQUE: Transaxial images were obtained from the dome of the diaphragm to the symphysis pubis without oral contrast. Oral and amp; IV GASTROGRAFIN and amp; 100ML ISOVUE 370 was administered. Sagittal and coronal images were reconstructed. Individualized dose optimization techniques were used for this CT. COMPARISON: Previous study of 01-03-19 FINDINGS: The visualized lung bases are unremarkable. The visualized portions of the heart are within normal limits. Normal liver. There are surgical clips in the gallbladder fossa consistent with a prior cholecystectomy. There is dilatation of the CBD measuring up to 10 mm. Normal spleen. Normal pancreas. Normal bilateral adrenal glands. Normal right kidney. Normal left kidney. There is a small hiatal hernia. Normal small intestine. There is a large colonic stool burden. There is non-visualization of the appendix. There are calcified plaques of the abdominal aorta. Normal inferior vena cava. Normal retroperitoneum. There is limited visualization of pelvic anatomy due to scanning artifact caused by left hip implants. The visualized bladder appears normal. Uterus and adnexal structures are unremarkable. Normal abdominal wall. There are severe degenerative changes of the right hip. Status post total left hip replacement changes are noted. There are diffuse degenerative changes of the visualized thoracolumbar spine. There are status post laminectomy changes at L3-L5. There is a subcutaneous fluid collection of the mid posterior lumbar region measuring 14.3 x 3.0 x 2.9 cm which may represent process such as postoperative seroma. Increased soft tissue density is also noted posterior to the lumbar spine in the region of laminectomy consistent with edematous muscle. CT/Abdomen/Pelvis WITH Contrast IMPRESSION: 1. Status post cholecystectomy. Dilatation of the CBD measuring up to 10 mm. 2. Small hiatal hernia. 3. Status post total left hip replacement. Severe degenerative changes of the right hip. 4. Status post laminectomy changes seen from L3 to L5. There is a subcutaneous fluid collection of the mid posterior lumbar region measuring 14.3 x 3.0 x 2.9 cm which may represent process such as postoperative seroma. CSF leak cannot be entirely excluded. 5. Increased soft tissue density is also noted posterior to the lumbar spine in the region of laminectomy consistent with edematous musculature. 6. If clinically indicated, MRI may be helpful for further evaluation. Electronically Signed: Toro Mendieta MD at 16:41 EDT , Service support ,
--- NOTE | 2020-01-05 14:14 | EKG12_ITS ---
Test Reason : NAUSEA Blood Pressure : / mmHG Vent. Rate : 075 BPM Atrial Rate : 075 BPM P-R Int : 148 ms QRS Dur : 086 ms QT Int : 450 ms P-R-T Axes : 056 006 050 degrees QTc Int : 502 ms Normal sinus rhythm Prolonged QT Abnormal ECG Confirmed by RADHA CLEMENT, KOBI ([id number]), copy editor TRISHA MOE ([id number]) on 01/07/2020 12:40:48 PM Referred By: CRISTINO Confirmed By:KOBI GARCIA MD
--- NOTE | 2020-01-05 14:14 | CT_ITS ---
STUDY: CT BRAIN WITHOUT CONTRAST REASON FOR EXAM: Female, 69 years old. JOSEPH/NAUSEA. Abdomen, back and muscle pain. Pt had lumbar laminectomy 12/16/19. Prior cholecystectomy and lt hip replacement. RADIATION DOSAGE (If Supplied By Facility): CTDIvol = ( 60.81 ) mGy, DLP = ( 1044.28 ) mGycm TECHNIQUE: Transaxial CT imaging of the brain was performed without administration of intravenous contrast material. Individualized dose optimization techniques were used for this CT. COMPARISON: No relevant priors. FINDINGS: Normal soft tissue structures. 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 There is mild cerebral atrophy with widening of the extra-axial spaces and ventricular dilatation. There are areas of decreased attenuation within the white matter tracts of the supratentorial brain, consistent with microvascular disease changes. Normal basal ganglia and thalami. Normal brainstem. Normal cerebellum. There is no intracranial hemorrhage. There are no findings of an acute ischemic infarction. Normal visualized paranasal sinuses. CT/Brain/Head without Contrast IMPRESSION: Chronic involutional changes of the brain. 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 Electronically Signed: Toro Mendieta MD at 16:26 EDT , Service support ,
--- NOTE | 2020-01-05 14:18 | ED.DCSUM_ITS ---
- ER Visit Summary Date of Service: 01/05/20 Chief Complaint: Nausea, vomiting, diarrhea, headache History of Present Illness: The patient is a 69 F who presents with nausea, vomiting, diarrhea, and headache that has been constant over the past 5 days. Patient states she has a nauseous feeling over her entire abdomen. Patient states her emesis is stomach contents. Patient denies any hematemesis or coffee-ground emesis. Patient states her diarrhea is watery and yellow. Patient denies any melena or hematochezia. Patient denies any dysuria or hematuria. Patient states her headache is over the frontal area. Patient states it is worse with bright lights and noises. Patient is to subjective chills but denies any fevers. Patient states she did have recent back surgery 3 weeks ago. Patient denies any low back pain. Patient denies any discharge or drainage from the incision. Patient states she has followed up with her surgeon who changed her pain medications because he felt that this may be causing the nausea. Physical Examination: Vital signs are stable. Patient is afebrile. Patient is in no acute distress. Oral mucosa is pink and moist. Neck is supple. Trachea is midline. There is no JVD. Heart was regular rate and rhythm. Lungs are clear and equal bilaterally. Abdomen is soft. Bowel sounds are normal. There is no tenderness. There is no rebound or guarding noted. Extremities are intact. There is no calf tenderness or edema. Cranial nerves II through XII are intact. There are no focal motor or sensory deficits noted. Skin is warm and dry. The incision over the lumbar spine is healing well. There is no erythema or tenderness. There is no discharge or drainage. There is no induration. Test Results: EKG shows normal sinus rhythm with a rate of 75. There are no acute ST or T wave changes. There are no prior EKGs available for comparison. CBC shows a slight leukocytosis of 12.2. Comprehensive metabolic profile and urinalysis were normal. Troponin was normal. CT scan of the brain was obtained. There are chronic changes. CT scan of the abdomen and pelvis was obtained. There is some mild dilatation of the common bile duct up to 10 mm. There is also a subcutaneous fluid collection of the mid lumbar region that could represent a seroma however, CSF leak cannot be excluded. Emergency Department Course and Treatment: Patient was given Reglan and Benadryl . Patient was feeling better on reevaluation. Patient states her headache has improved. Patient denies any worsening of her headache with sitting or standing. Patient denies any fevers or chills. I do not feel the fluid collection in her lumbar spine is symptomatic of a CSF leak. It is most likely a seroma. It does not appear to be infectious. Patient was instructed to keep the area clean and dry. Patient was instructed to follow-up with her primary care physician and surgeon as scheduled. Patient understood and was agreeable with the plan. All questions were answered. Disposition: Discharge home Impression: Headache This note was generated with [employer] dictation software. It may contain incorrect words, spelling, and punctuation that were not noted in review of the chart prior to signing ED Disposition - Plan for ED Patient: Disposition: Home or Assisted Living Diagnosis: Headache Instructions: ED, Migraine (Classical) Prescriptions: Ondansetron [Zofran Odt] 4 mg PO Q8H PRN PRN #10 tab PRN Reason: Nausea Prescription Printed Referrals: Lobo Newsome [Primary Care Provider] - 5-7 Days
[2020-01-05 14:32] LABS: Absolute Lymphocyte Count 3.83 X10^3/uL (0.83-4.51); Absolute Neutrophil Count 7.3 X10^3/uL (2.0-7.7); Basophil# 0.09 X10^3/uL; Basophil% 0.7 % (0-1); Eosinophil# 0.11 X10^3/uL; Eosinophils% 0.9 % (0-5); Hematocrit 45.2 % (37-47); Hemoglobin 14.2 g/dL (12.0-15.0); Lymphocyte # 3.83 X10^3/ul (4.0); Lymphocyte % 31.3 % (19-41); Mean Corp Hgb Conc 31.4 g/dL (32-36); Mean Corpuscular Hgb 27.8 pg (27.0-32.0); Mean Corpuscular Volume 88.5 fL (81-99); Mean Platelet Vol. 10.4 fl (6.2-12.0); Monocyte# 0.86 X10^3/uL; NRBC Flagged by Analyzer 0 % (0-5); Neutrophil # 7.28 X10^3/uL (2.7-7.7); Neutrophil % 59.7 % (47-70); Platelet Count 459 K/mm3 (150-450); RBC Distribution Width CV 14.3 % (11.6-14.6); RBC Distribution Width SD 46.3 fl (35.1-43.9); Red Blood Count 5.11 M/mm3 (4.2-5.4); White Blood Count 12.2 K/mm3 (4.4-11.0)
[2020-01-05 14:42] VITALS: BP 158/73; PULSE 78; RESP 18; TEMP 36.6; O2SAT 98
[2020-01-05] MEDS: 0.9% Normal Saline 1,000 ML 1000 ML IV (14:42)
[2020-01-05] MEDS: Metoclopramide 10 MG/2 ML Vial IV (14:43)
[2020-01-05] MEDS: DiphenhydrAMINE 50 MG/ML Syringe 25 MG IV (14:44)
[2020-01-05 15:11] LABS: ALB/GLOB Ratio 0.8 RATIO (0.9-2.4); AST(SGOT) 25 U/L (15-37); Alanine Aminotransfer ALT/SGPT 23 U/L (13-56); Albumin, Serum 3.1 g/dL (3.2-5.0); Alkaline Phosphatase 115 U/L (45-117); Anion Gap 9 (5-15); BUN 9 mg/dL (7-18); BUN/Creat Ratio 9.6 RATIO (10-20); Calcium,Total 9.3 mg/dL (8.5-10.1); Chloride 107 mmol/L (98-107); Creatinine, Serum 0.94 mg/dL (0.55-1.02); EST Glomerular Filtration Rate 63 mL/min (>60); Est Glom Filt Rate - Afr Amer 76 mL/min (>60); Estimated Creatinine Clearance 46.07 ml/min; Glucose 82 mg/dL (74-106); Lipase 247 U/L (73-393); Potassium 4.4 mmol/L (3.5-5.1); Protein, Total 7.1 g/dL (6.4-8.2); Sodium Level 139 mmol/L (136-145)
[2020-01-05 15:27] LABS: Lactic Acid 1.7 mmol/L (0.4-1.9)
[2020-01-05 15:34] LABS: Red Blood Cells-Urine 0 SEEN /hpf (0-5); White Blood Cells 0 SEEN /hpf (0-5)
[2020-01-05 15:35] LABS: Bacteria 0 SEEN /hpf (None Seen); Mucous, Urine 0 SEEN /hpf (<or=2+)
[2020-01-05 15:36] LABS: Color, Urine Straw (Yellow); Glucose, Dipstick Normal (Normal); Ketone-Dipstick Negative (Negative); Leukocyte Esterase-Dipstick Negative /ul (Negative); Nitrite-Dipstick Negative (Negative); Occult Blood-Urine Negative /ul (Negative); Protein-Dipstick Negative (Negative); Urine Bilirubin Dipstick Negative (Negative); Urine Clarity Clear (Clear); Urine Urobilinogen Normal (Normal)
[2020-01-05 15:51] LABS: Squamous Epithelial Cells - UA 0-5 SEEN /hpf (5-10)
[2020-01-05 17:17] VITALS: BP 157/65; O2SAT 100
[2020-01-05 17:18] VITALS: BP 157/65; PULSE 78; RESP 18; TEMP 36.6; O2SAT 100
[2020-01-05 18:45] VITALS: BP 187/74; RESP 18; O2SAT 100
[2020-01-05 18:48] VITALS: PULSE 69
== END 2020-01-05 19:05 | disposition home or self-care (01) ==
PROVIDERS: Emergency Provider Emergency Medicine
DX: R51 Headache (principal)
CPT/HCPCS: 70450; 74177; 80053; 81001; 83605; 83690; 84484; 85025; 93005; 96361; 96374; 96375; 99283; J7030; Q9967; A4216

== ENCOUNTER → 2020-03-16 11:07 | Outpatient (CLI) | payer MEDICARE, SELFPAY ==
--- NOTE | 2020-03-16 11:38 | RAD_ITS ---
STUDY: X-RAY - PELVIS REASON FOR EXAM: Female, 69 years old. OA of right hip TECHNIQUE: One view of the pelvis was obtained. COMPARISON: January 05, 2020 CT scan pelvis FINDINGS: There is a distended loop of bowel in the pelvis Normal visualized soft tissue structures. Normal bilateral iliac wings, sacroiliac joints and visualized sacrum. Normal visualized bilateral superior and inferior pubic rami. Normal pubic symphysis. Normal ischial tuberosities. There is degenerative change in the lumbar spine. There is no laminectomy. Normal visualized right femoral head. There is osteoarthritic spur formation of the right acetabular rim. There is moderate to severe articular joint space narrowing of the right hip. There is a left hip arthroplasty. RAD/Pelvis 1 or 2 Views IMPRESSION: Moderate to severe degenerative change of the right hip joint. Left hip arthroplasty. Electronically Signed: Xuan Ochoa MD at 4:07 EDT Tel , Service support ,
== END ==
PROVIDERS: Referring Provider Orthopaedic Surgery; Visit Provider Orthopaedic Surgery
DX: M16.12 Unilateral primary osteoarthritis, left hip (principal)
CPT/HCPCS: 72170

== ENCOUNTER → 2020-03-23 13:57 | Outpatient (CLI) | payer MEDICARE, SELFPAY ==
--- NOTE | 2020-03-23 13:59 | ECHOD_ITS ---
Reason For Study: Murmur Procedure This was a 2D Doppler, Color Flow transthoracic echocardiogram. Exam performed in department. Left Ventricle Normal LV size. Left ventricular systolic function is normal. The estimated ejection fraction is 70 %. Diastolic function is indeterminate. No regional wall motion abnormalities noted. Right Ventricle Normal RV size. Normal systolic function. Atria The left atrium is mildly enlarged. Normal right atrium. No doppler evidence for ASD. Mitral Valve There is no mitral annular calcification. Normal mitral valve. Trivial mitral valve insufficiency. Tricuspid Valve Normal tricuspid valve. Mild tricuspid valve insufficiency. Right ventricular systolic pressure estimated to be 31 mmHg. Aortic Valve Trisinus/trileaflet aortic valve. Mild focal aortic valve calcification. Pulmonic Valve The pulmonic valve is not well visualized. Trivial pulmonic valve insufficiency. Great Vessels Normal sized aortic root. Pericardium/Pleural Trivial pericardial effusion. There are no echocardiographic indications of cardiac tamponade. MMode/2D Measurements & Calculations LVIDd: 4.3 cm IVSd: 1.1 cm Ao root diam: 3.2 cm LVIDs: 2.4 cm LVPWd: 1.1 cm RVDd: 3.4 cm FS: 44.0 % LAV(MOD-bp): 53.6 ml LA A4 area: 19.7 cm2 LA dimension(2D): 3.9 cm LAV(MOD-bp) Indexed: 28.6 ml/m2 LAV(MOD-sp2): 43.2 ml LAV(MOD-sp4): 58.1 ml RA A4 area: 12.3 cm2 Time Measurements MV dec time: 0.21 sec Doppler Measurements & Calculations MV E max jamal: 94.8 cm/sec Lat Peak E' Jamal: 7.4 cm/sec Med Peak E' Jamal: 5.0 cm/sec MV A max jamal: 88.8 cm/sec E/E' lat: 12.8 E/E' med: 18.8 MV E/A: 1.1 Ao V2 max: 165.5 cm/sec LV V1 max: 126.5 cm/sec PA V2 max: 121.8 cm/sec Ao max P.0 mmHg LV V1 max P.4 mmHg TR max jamal: 266.6 cm/sec TR max P.4 mmHg Interpretation Summary Left ventricular systolic function is normal. The estimated ejection fraction is 70 %. The left atrium is mildly enlarged. Trivial mitral valve insufficiency. Mild tricuspid valve insufficiency. Mild focal aortic valve calcification. Trivial pulmonic valve insufficiency. Trivial pericardial effusion. There are no echocardiographic indications of cardiac tamponade. Right ventricular systolic pressure estimated to be 31 mmHg. Diastolic function is indeterminate. Ordering Physician: ROXIE JIN Referring Physician: Jerod Diamond Performed By: Wes, Nicole, RDCS, RVT
== END ==
DX: R01.1 Cardiac murmur, unspecified (principal); M48.061 Spinal stenosis, lumbar region without neurogenic claudication; M51.36 Other intervertebral disc degeneration, lumbar region
CPT/HCPCS: 93306; 97113

== ENCOUNTER 2020-04-02 08:00 | Outpatient (RCR) | payer MEDICARE, SELFPAY ==
--- NOTE | 2020-02-06 12:29 | HP.PTEVAL_ITS ---
Patient's Visit Information ABEL MUÑOZ is a 69 year old F referred to Physical Therapy by JOSUE SMALLWOOD with a diagnosis of S/P L345 LAMINECTOMY 12/16/19. Date of Evaluation: 02/06/20 Physical Therapist: Sierra Nelson, PT, Cert MDT - Visit Plan Frequency: 2x /Week Duration: 4-6 Weeks Plan: *HISTORY OR LEFT WRIST PAIN*. *RIGHT THR RECOMMENDED*. AQUATIC THERAPY FOR: POSTURE CORRECTION/STRENGTHENING, INSTRUCTION IN APPROPRIATE BODY MECHANICS AND ACTIVITY MODIFICATIONS. DLS STARTING WITH A NEUTRAL SPINE PROGRESSING ROM TOLERATED. KJ LE ROM, STRETCHING AND STRENGTHENING. HEP INSTRUCTION. *MINIMAL LIFTING > 10 LBS, BENDING, PUSHING, PULLING, TWISTING AND OVER HEAD EXTENSION FOR 4-6 WEEKS. - Subjective PATIENT REPORTS SHE HAD TWO ROUNDS OF BACK INJECTIONS WITH DR. SALAS AFTER STOPPING PT LAST EPISODE OF CARE OCTOBER 2019. THOSE DID NOT HELP SO WENT TO DR. VERMA DECEMBER 05 2019 AND HAD SURGERY DECEMBER 16 2019. JAN [address] VERMA BECAUSE NOT DOING MUCH BETTER. DR. SALAS 02/05/20 - PRESCRIBED RESTART OF GABAPENTIN AND STARTED THAT LAST NIGHT. Present symptoms: PATIENT REPORTS THE ONLY THING THAT IS BETTER SINCE BACK SURGERY IS THE PAIN IN HER RIGHT CALF. PATIENT REPORTS SHE STILL HAS PAIN IN HER BACK AND HER RIGHT FOOT STILL HURTS WITH WALKING SHORT DISTANCES. Present since: CHRONIC. Pain Scale: BACK: WORST 6/10, LEAST 2/10. RIGHT FOOT: WORST 7/10 (CAUSES HER TO HAVE TO STOP WALKING), LEAST 1/10. Worse: STANDING AND WALKING. Better: SITTING. Disturbed sleep: NOT IF USING TYLONOL. Previous history/Previous treatment: [facility] W[facility] THERAPY. Gait: VERY LIMITED DUE TO BACK AND FOOT PAIN. Difficulty initiating urinatin: NO. Imaging: NONE SINCE SURGERY. PMH: OTHER: NOTES FROM RECENT PT DISCHARGE OCTOBER 2019: NIURKA'T PENDING WITH DR. SALAS SUNDAY TO CONSIDER MORE LUMBAR INJECTIONS. 11/06/19 FOLLOW UP WITH IDENTITY MANAGEMENT CONSULTANT AND WILL DISCUSS WRIST - MY WRIST IS GOOD IF I DON'T DO ANYTHING LIKE TYPING. PATIENT REPORTS HER TOE INJECTION IS CLEARED UP BUT HER TOE STILL GETS FREEZING COLD HOWEVER IT ISN'T FREQUENT. OVER-ALL SHE IS NOT SEEING A CHANGE IN HER FOOT PAIN (BALL OF HER FOOT), IT ALSO FEELS TINGLING AND NUMB. HER FOOT HURTS JUST TO WALK SHORT DISTANCES. SHE REPORTS HER UPPER BACK FEELS STRONGER AND SHE CAN SEE THAT AT HOME WITH BEING ABLE TO DO MORE THINGS BUT HER LOW BACK IS HURTING ALL THE TIME. PATIENT ALSO STILL REPORTS RIGHT GROIN AND CALF PAIN. PATIENT IS GOING TO FOLLOW UP WITH DR. LOPES NEXT WEEK AND THAT IS WHO SHE STARTED WITH FOR HER LOW BACK. NO FURTHER FOLLOW UP PENDING WITH DR. BERNARD YET FOR RIGHT HIP. OVER-ALL PATIENT REPORTS SHE IS NOT WORSE BUT NOT MUCH BETTER. PATIENT REPORTS SHE WOULD LIKE TO TRY ANOTHER BACK INJECTION AND THEN SHE WOULD LIKE TO GET HER RIGHT HIP REPLACED. NO BACK SURGERY HAS BEEN RECOMMENDED AT THIS POINT. PATIENT REPORTS HER HOME EX'S HELP AND SHE PLANS TO CONTINUE THEM WHILE SEEKING THESE OTHER TREATMENTS. RESTRICTIONS: PATIENT REPORTS SHE IS STILL RESTRICTED FROM BENDING, LIFTING AND TWISTING BY HER SURGEON HOWEVER SHE IS DOING SOME LIGHT LIFTING 5-10 LBS. SHE REPORTS SHE DOES NOT KNOW HOW LONG THEY WANT HER TO KEEP THESE RESTICTIONS. NO FOLLOW UP PENDING WITH DR. VERMA UNLESS PAIN WORSENS. - Objective INDEP GAIT INTO PT TODAY WITH CANE AND WADDLE TYPE GAIT PATTERN, DECREASED CADANCE, NARROW BASE OF SUPPORT, SHORT KJ STRIDE LENGTH AND QUICK STEPS. MILD LIMP ON LLE. NO LOB. PATIENT IS USING CANE AND WALKER NEEDED. DIFFICULTY TRANSITIONING FORM SIT TO STAND AND UE DEPENDENT TO DO SEE. DIFFICULTY INITIATING GAIT AFTER SITTING. Motor deficit: KJ LE'S GROSSLY 5/5 WITH MMT'ING EXCEPT LEFT HIP 4/5 AND RIGHT HIP 3+/5. TESTING RIGHT HIP INCREASES RIGHT HIP AND THIGH PAIN. NO INCREASED KJ HIP PAIN WITH MMT'ING TODAY. Sensory deficit: KJ LE LIGHT TOUCH SENSATION INTACT AND SYMMETRICAL. ROM deficit: KJ LE'S WFL AND NO C/O INCREASED LEFT HIP PAIN WITH LEFT HIP TESTING. Dural Signs: NEGATIVE KJ LE'S TODAY. Lumbar mvmt loss (TESTED CAREFULLY) flex - MIN - DECREASES BACK PAIN. ext - RAMIRO - INCREASES RIGHT GROIN PAIN AND LBP. R SG - MOD - INCREASES LBP. L SG - MOD - INCREASES LBP. Core strength: POOR - Goals Goal 1:: DECREASE C/O BACK AND RIGHT LE SX'S. Goal Time Frame: 4-6 Weeks Goal 2:: IMPROVE PERSONAL CARE, LIFTING, WALKING, STANDING, SOCIAL LIFE, TRAVEL AND HOMEMAKING FUNCTION Goal Time Frame: 4-6 Weeks Goal 3:: INSTRUCT IN PROPHYLAXIS Goal Time Frame: 4-6 Weeks - Anticipated Interventions Patient/Client Instruction: Educate patient on: Condition, Plan of Care, Risk Factors, Benefits of Fitness Program For the Purpose of:: To improve self management Therapeutic Exercise to Include: Strength training, Body mechanics, Postural training, Flexibilty training, Gait and locomotor training, Neuromotor development, In an aquatic setting, Dynamic Lumbar Stabilization For the Purpose of:: To decrease pain, To increase ROM, To improve muscle perfo rmance and motor function, To increase tolerance to activity/condition/position, To improve ability of physical actions for home/community/work/leisure, To improve gait and locomotor functions Thermo therapy (hot pack): Yes Ultrasound (thermal/non thermal): Yes For the Purpose of:: To decrease pain, To decrease swelling/inflammation, To improve nutrient delivery to tissue Thank you for the opportunity to evaluate your patient. For Medicare and Medicare HMO plans, please review the plan of care and approve it. It will need to be FAXED BACK to us at [phone] for Medicare purposes. For Medicare only, by signing this I certify the plan of care. Please let me know if there are questions or concerns regarding this plan of care. Physician Signature: Date:
--- NOTE | 2020-03-08 13:00 | HP.PTREVAL ---
JOSUE SMALLWOOD, It has been my pleasure to treat ABEL MUÑOZ over the last 10 visits for S/P L345 LAMINECTOMY 12/16/19. Please see the progress note below for an update on the physical therapy plan of care! Subjective: PATIENT REPROTS HER BACK IS ABOUT 50% BETTER. RIGHT THR PENDING Mar. PATIENT REPORTS SHE IS SO EXCITED TO GET HER HIP DONE BECAUSE SHE CAN NOT WALK VERY FAR AND SHE CAN NOT MOVE VERY QUICKLY DUE TO HER RIGHT HIP PAIN. STATES HER RIGHT HIP/LEG PAIN HAS NOT BEEN HELPED BY THE BACK SURGERY. PATIENT REPORTS HER BACK IS BETTER THOUGH BECAUSE SHE HAS BETTER BACK FLEXABILITY AND SHE FEELS HER BACK STRENGTH IS BETTER FROM BEING IN THE POOL. Objective/Function: PATIENT WAS SEEN TODAY FOR RE-ASSESSMENT OF PROGRESS TOWARD THE SET PT GOALS AND THE NEED FOR FURTHER PHYSICAL THERAPY VS READINESS FOR DISCHARGE. UPON EXAM TODAY SHE DEMO'S. INDEP GAIT INTO PT WITH CANE AND WADDLE TYPE GAIT PATTERN, DECREASED CADANCE, NARROW BASE OF SUPPORT, SHORT KJ STRIDE LENGTH AND QUICK STEPS SIMILAR TO INITIAL EVAL. MILD LIMP ON LLE. GAIT BECOMES EVEN WORSE WITHOUT CANE. ABLE TO TRANSFER SIT TO STAND WITHOUT UE ASSIST NOW. DIFFICULTY INITIATING GAIT AFTER SITTING. Motor deficit: KJ LE'S GROSSLY 5/5 WITH MMT'ING EXCEPT LEFT HIP 4/5 AND RIGHT HIP 3+/5. TESTING RIGHT HIP INCREASES RIGHT HIP AND THIGH PAIN. NO INCREASED KJ HIP PAIN WITH MMT'ING BUT PROCEEDED WITH TESTING WITH CAUTION WITH UPCOMING THR PENDING. Sensory deficit: KJ LE LIGHT TOUCH SENSATION INTACT AND SYMMETRICAL. Dural Signs: NEGATIVE KJ LE'S. Lumbar mvmt loss (TESTED CAREFULLY) flex - NIL, ext - RAMIRO - INCREASES RIGHT GROIN PAIN AND LBP. R SG - MOD - NO PAIN L SG - MOD - NO PAIN. Core strength: POOR. Plan Plan: CONT PT PER ORIG POC . 5-6 MORE VISITS UNTIL THR. *Add noodle stomps leg press next. *HISTORY OR LEFT WRIST PAIN* - *RIGHT THR RECOMMENDED*. AQUATIC THERAPY FOR: POSTURE CORRECTION/STRENGTHENING, INSTRUCTION IN APPROPRIATE BODY MECHANICS AND ACTIVITY MODIFICATIONS. DLS STARTING WITH A NEUTRAL SPINE PROGRESSING ROM TOLERATED. KJ LE ROM, STRETCHING AND STRENGTHENING. HEP INSTRUCTION. *MINIMAL LIFTING > 10 LBS, BENDING, PUSHING, PULLING, TWISTING AND OVER HEAD EXTENSION FOR 4-6 WEEKS. Goals Goal 1:: DECREASE C/O BACK AND RIGHT LE SX'S. Goal Time Frame: 4-6 Weeks Goal Progress: Progressing Goal 2:: IMPROVE PERSONAL CARE, LIFTING, WALKING, STANDING, SOCIAL LIFE, TRAVEL AND HOMEMAKING FUNCTION Goal Time Frame: 4-6 Weeks Goal Progress: Progressing Goal 3:: INSTRUCT IN PROPHYLAXIS Goal Time Frame: 4-6 Weeks Goal Progress: Progressing Anticipated Interventions Patient/Client Instruction: Educate patient on: Condition, Plan of Care, Risk Factors, Benefits of Fitness Program For the Purpose of:: To improve self management Therapeutic Exercise to Include: Strength training, Body mechanics, Postural training, Flexibilty training, Gait and locomotor training, Neuromotor development, In an aquatic setting, Dynamic Lumbar Stabilization For the Purpose of:: To decrease pain, To increase ROM, To improve muscle performance and motor function, To increase tolerance to activity/condition/position, To improve ability of physical actions for home/community/work/leisure, To improve gait and locomotor functions Thermo therapy (hot pack): Yes Ultrasound (thermal/non thermal): Yes For the Purpose of:: To decrease pain, To decrease swelling/inflammation, To improve nutrient delivery to tissue Please do not hesitate to contact me at [phone] by phone or if you have questions or concerns regarding this new plan of care! Sincerely, Sierra Nelson, PT, Cert MDT
--- NOTE | 2020-04-02 08:56 | HP.PTDCSUM_ITS ---
It has been my pleasure to treat ABEL MUÑOZ referred by JOSUE SMALLWOOD, with the diagnosis of S/P L345 LAMINECTOMY 12/16/19 for a total of 17 visit(s). Discharge Date: Please see the following information for a summary of their discharge status. Subjective: PATIENT REPORTS SHE IS REALLY EXCITED TO BE GETTING HER HIP SX TOMORROW. PATIENT REPORTS HER HIP IS PROGRESSIVELY GETTING WORSE BUT SHE IS GLAD SHE HAS DONE THE PT. STATES SHE CAN MOVE MORE THINGS BETTER IN THE POOL AND WITH LESS PAIN. PATIENT REPORTS HER BACK IS ABOUT 70% BETTER NOW. PATIENT REPORTS SHE NO LONGER HAS CONSTANT PAIN IN HER BACK AND SHE CAN BEND HER BACK BETTER NOW. PATIENT REPORTS SHE CAN HOLD HER GRANDSON ON HER LAP NOW AND SEMI- WRESTLE WITH HIM NOW THAT HER BACK IS FEELING BETTER. SHE STATES SHE CAN CARRY THINGS NOW THAT SHE COULDN'T BEFORE AND HER HIP HOLDS HER BACK NOW NOT HER BACK. LLE Pain Intensity (Out of 10): 0 RLE Pain Intensity (Out of 10): 1 LOW BACK Pain Intensity (Out of 10): 0 % Improvement: 70 Objective/Function: PATIENT WAS SEEN TODAY FOR RE-ASSESSMENT OF PROGRESS TOWARD THE SET PT GOALS AND THE NEED FOR FURTHER PHYSICAL THERAPY VS READINESS FOR DISCHARGE. PATIENT HAS HAD GOOD PROGRESS WITH HER BACK WITH PT BUT REHAB HAS BEEN LIMITED BY HER RIGHT HIP PAIN. WILL D/C AT THIS TIME DUE TO R THR PENDING TOMORROW. UPON EXAM TODAY SHE DEMO'S. INDEP GAIT INTO PT WITH CANE AND WADDLE TYPE GAIT PATTERN, DECREASED CADANCE, NARROW BASE OF SUPPORT, SHORT KJ STRIDE LENGTH AND QUICK STEPS SIMILAR BUT BETTER THAN LAST RE-CHECK. MILD LIMP ON RLE. GAIT BECOMES MUCH WORSE WITHOUT CANE. Motor deficit: KJ LE'S GROSSLY 5/5 WITH MMT'ING EXCEPT LEFT HIP 4/5 AND RIGHT HIP 3+/5. TESTING RIGHT HIP INCREASES RIGHT HIP/GROIN AND THIGH PAIN. PROCEEDED WITH TESTING WITH CAUTION WITH UPCOMING THR PENDING. Sensory deficit: KJ LE LIGHT TOUCH SENSATION INTACT AND SYMMETRICAL. ROM: RIGHT KNEE FLEXION IN LYING WITH A HEEL SLIDE = 117 DEG. RIGHT HIP FLEXION IN LYING = 109 DEG. Dural Signs: NEGATIVE KJ LE'S. Lumbar mvmt loss (TESTED CAREFULLY) flex - NIL, ext - RAMIRO - INCREASES LBP, R SG - RAMIRO AND INCREASES RIGHT GROIN PAIN. L SG - MOD - NO PAIN. Core strength: POOR. Goal 1:: DECREASE C/O BACK AND RIGHT LE SX'S. Goal Progress: Progressing Goal 2:: IMPROVE PERSONAL CARE, LIFTING, WALKING, STANDING, SOCIAL LIFE, TRAVEL AND HOMEMAKING FUNCTION Goal Progress: Progressing Goal 3:: INSTRUCT IN PROPHYLAXIS Goal Progress: Progressing Plan: D/C If there are questions or concerns regarding this patient's physical therapy, please feel free to call me at [phone]. Thank you for the referral of this patient. Sincerely, Sierra Nelson, PT, Cert MDT
== END 2020-04-02 19:00 | disposition home or self-care (01) ==
LOC: PT 08:00
DX: M48.061 Spinal stenosis, lumbar region without neurogenic claudication (principal); M51.36 Other intervertebral disc degeneration, lumbar region
CPT/HCPCS: 97113; 97162; 97164

== ENCOUNTER → 2020-06-03 10:01 | Outpatient (CLI) | payer MEDICARE, SELFPAY ==
[2020-06-03 08:34] VITALS: BMI 31.8
== END ==
PROVIDERS: Visit Provider Physician Assistant Surgical
DX: Z20.828 Contact with and (suspected) exposure to other viral communicable diseases (principal)
CPT/HCPCS: 87635; U0003

== ENCOUNTER 2020-06-18 08:00 | Outpatient (RCR) | payer MEDICARE, SELFPAY ==
--- NOTE | 2020-05-06 21:03 | HP.PTEVAL ---
Patient's Visit Information ABEL MUÑOZ is a 69 year old F referred to Physical Therapy by Dr. Ever Goldstein MD with a diagnosis of S/P R THR WITH ANTERIOR APPROACH 04/03/2020. Date of Evaluation: 05/06/20 Physical Therapist: Sierra Nelson, PT, Cert MDT - Visit Plan Frequency: 2x /Week Duration: 6 Weeks Plan: ANTERIOR RIGHT TOTAL HIP REPLACEMENT PRECAUTIONS. CHECK INCISION EACH VISIT UNTIL HEALED. GAIT TRAINING, ROM, AND STRENGTHENING PER PROTOCOL. - Subjective DX: S/P RIGHT TOTAL HIP REPLACEMENT WITH ANTERIOR APPROACH BY DR. GOLDSTEIN 04/03/2020. (PT HAS ALSO HAD RECENT LUMBAR SX BY DR. GUO DECEMBER 2019 FOLLOWED BY PT HERE AT [facility]). PATIENT NOW HAS KJ TKR'S AND KJ THR'S. THIS PATIENT PRESENTS TO PT S/P R HIP THR AND PATIENT DENIES ANY COMPLICATIONS WITH THE SURGERY. SHE REPORTS RIGHT HIP PAIN RANGING 0/10 TO 5/10. SHE REPORTS ONGOING LOW BACK PAIN RANGING 1/10 TO 3/10. SHE REPORTS HER RIGHT CALF AND FOOT PAIN ALSO CONTINUE. SHE IS SEING A ACQUISITION SPECIALIST. SHE REPORTS TESTING SHOWS SHE STILL HAS PROBLEMS WITH THE NERVES AND PRESCRIBED MEDICINE SEEMS TO BE HELPING. SHE IS PLANNING TO FOLLOW UP WITH DR. SALAS IN PAIN [facility]MT IN ABOUT 2 WEEKS FOR HER BACK. - Objective THIS PATIENT AMBULATES INDEP'LY INTO PT WITH A STRAIGHT CANE AND LIMPING ON THE RIGHT LE. SHE IS WALKING WITH DECREASED CADANCE AND DECREASED KJ STRIDE LENGTH BUT NO LOB. SHE IS ABLE TO TRANSFER INDEP'LY FROM SIT TO STAND AND SHE IS EVEN ABLE TO TRANSFER INDEP'LY FROM SIT TO SUPINE LIFTING R LE ONTO THE BED WITHOUT UE OR OTHER ASSIST. SENSATION: KJ LE LIGHT TOUCH SENSATION APPEARS INTACT AND SYMMETRICAL WITH TESTING TODAY. STRENGTH: LLE 5/5 WITH MMT'ING EXCEPT HIP GRADED 4/5. RIGHT LE: HIP FLEX 3+/5, KNEE EXT 4/5, KNEE FLEX 4/5, ANKLE 5/5. GIRTH MEASUREMENT: PATELLA - 43 CM, 6 SUPRAPATELLA - 61.5 CM. R LE AROM: HIP FLEX 90 DEG, HIP EXT - NT, KNEE EXT - FULL, KNEE FLEX - 117 DEG. OTHER: PATIENT HAS A LARGE OPEN AREA IN HER INCISION. SHE REPORTS DR. GOLDSTEIN IS AWARE TO SOME DEGREE OF HER INCISION OPENING BUT IT IS CAVED IN MORE NOW. THIS PT INSTRUCTED PATIENT TO CALL AND UPDATE HER SURGEON ABOUT HER INCISION CHANGES TODAY. NO REDNESS OR DRAINAGE EVIDENT UPON EXAM TODAY. PATIENT ALLUDED TO HISTORY OF GAPPING WITH INCISION WITH OTHER SURGERY TOO. WOMAC SCORE = 45%. TREATMENT: THER ACT - REVIEWED ANTERIOR THR PRECAUTIONS AND PATIENT COMMUNICATED GOOD UNDERSTANDING. APPROX 10 REPS EA OF: AP'S, ANKLE CIRCLES, QS'S, GS'S, HS'S, SAQ'S, AND INDEP SLR'S. PATIENT ALSO COMMUNICATES DOING SINK EX'S AT HOME AND SHE DEMONSTRATES AND/OR COMMUNICATES APPROPRIATE HOME EX. - Goals Goal 1:: PATIENT WILL BE INDEP AND SAFE WITH GAIT ON LEVEL SURFACES AND UP AND DOWN STEPS WITH LEAST ASSISTIVE DEVICE. Goal Time Frame: 4-6 Weeks Goal 2:: IMPROVE RIGHT LE FUNCTIONAL STRENGTH TO IMPROVE STANDING, WALKING AND ADL FUNCTION Goal Time Frame: 4-6 Weeks Goal 3:: IMPROVE RIGHT LE FUNCTIONAL ROM TO EASE ADL'S Goal Time Frame: 4-6 Weeks Goal 4:: PATIENT WILL BE INDEP WITH A HEP FOR CONTINUED IMPROVEMENT ONCE FORMAL PHYSICAL THERAPY CONCLUDES. Goal Time Frame: 4-6 Weeks - Anticipated Interventions Patient/Client Instruction: Educate patient on: Condition, Plan of Care, Risk Factors, Benefits of Fitness Program For the Purpose of:: To improve self management Therapeutic Exercise to Include: Strength training, Balance training, Body mechanics, Postural training, Flexibilty training, Gait and locomotor training, Neuromotor development, Active ROM For the Purpose of:: To decrease pain, To increase ROM, To improve muscle performance and motor function, To increase tolerance to activity/condition/position, To improve ability of physical actions for home/community/work/leisure, To improve gait and locomotor functions Cryotherapy (ice pack, ice massage): Yes For the Purpose of:: To decrease pain, To decrease swelling/inflammation Thank you for the opportunity to evaluate your patient. For Medicare and Medicare HMO plans, please review the plan of care and approve it. It will need to be FAXED BACK to us at [phone] for Medicare purposes. For Medicare only, by signing this I certify the plan of care. Please let me know if there are questions or concerns regarding this plan of care. Physician Signature: Date:
--- NOTE | 2020-05-27 10:22 | HP.PTREVAL_ITS ---
Dr. Ever Goldstein MD, It has been my pleasure to treat ABEL MUÑOZ over the last 3 visits for S/P R THR WITH ANTERIOR APPROACH 04/03/2020. Please see the progress note below for an update on the physical therapy plan of care! Subjective: PATIENT REPORTS HER HIP IS DOING REALLY WELL AND IT IS HER FOOT THAT REALLY SLOWS HER DOWN. THE PAIN CLINIC RE-NEWED HER GABAPENTIN PRESCRIPTION AND SHE HAS AN NIURKA'T TO FOLLOW UP AT PAIN MGMT. ALSO SAW DR. MOE AT [facility] FOR MRI AND NCT OF FOOT. HE ORDERED A TOPICAL ARTHRITIS MEDICINE AND IT IS HELPING HER TOE PAIN BUT NOT THE PAIN AT THE BALL OF HER FOOT. ORTHOTICS PENDING WHEN MORE RECOVERED FROM HIP REPLACEMENT. STATES IT TOOK A LONG TIME TO GET HIP WOUND HEALED. STATES IT IS MUCH SMALLER AND SCABBED OVER NOW. STATES DR. GOLDSTEIN GAVE HER A TREATMENT FOR IT. REPORTS SHE DIDN'T GO TO SEE HER SURGEON FOR ABOUT 10 DAYS AFTER EVAL. STATES THAT WHEN SHE CALLED HER HIP SURGEONS OFFICE AFTER PT EVAL TO GET A FOLLOW UP SHE DIDN'T TELL THEM ABOUT THE INCREASED GAPPING IN HER WOUND. SHE REPORTS SHE HAS BEEN DOING HER HOME EX PROGRAM AND TRYING TO WALK MUCH HER FOOT WOULD ALLOW WHILE OFF FROM PT. PATIENT REPORTS SHE WANTS TO WORK ON HER LEG MUSCLE STRENGTH IN PT NOW ALLOWED BY FOOT. PATIENT REPORTS IF SHE IS ON HER FOOT TOO MUCH IT STARTS TO TINGLE AND THEN IT GOES NUMB BUT EASES WITHIN A FEW MINUTES OF NWB. Objective/Function: PATIENT WAS SEEN TODAY FOR RE-ASSESSMENT OF PROGRESS TOWARD THE SET PT GOALS AND THE NEED FOR FURTHER PHYSICAL THERAPY VS READINESS FOR DISCHARGE. PATIENT HAS BEEN PROGRESSING WITH HEP AND TOLERATED RETURN TO PT 2 DAYS AGO WELL. SHE HAD A BIG GAP IN HER CARE AND PATIENT REPORTS THIS WAS DUE TO WORKING ON HEALING HER INCISION. PATIENT WOULD BENEFIT FROM CONTINUATION OF FORMAL PT TO PROGRESS TRUNK AND KJ LE ROM AND STRENGTHEING ABLE TAKING RIGHT FOOT PAIN INTO CONSIDERATION. UPON EXAM TODAY: THIS PATIENT AMBULATES INDEP'LY INTO PT WIThOUT HER STRAIGHT CANE AND LIMPING ON THE RIGHT LE BUT TRYING VERY HARD TO CONTROL HER GAIT. SHE IS WALKING WITH DECREASED CADANCE AND DECREASED KJ STRIDE LENGTH BUT NO LOB. SHE IS ABLE TO TRANSFER INDEP'LY FROM SIT TO STAND WITHOUT UE ASSIST. SENSATION: KJ LE LIGHT TOUCH SENSATION APPEARS INTACT AND SYMMETRICAL WITH TESTING TODAY BUT FEET NT AND HAS HAD RECENT NCT. STRENGTH: LLE 5/5 WITH MMT'ING EXCEPT HIP GRADED 4/5. RIGHT LE: HIP FLEX 4-/5, KNEE EXT 5/5, KNEE FLEX 5/5, ANKLE 5/5. GIRTH MEASUREMENT: PATELLA - 43 CM, 6 SUPRAPATELLA - 61.5 CM. R LE AROM: HIP FLEX 90 DEG, HIP EXT - NT, KNEE EXT - FULL, KNEE FLEX - 119 DEG. WOMAC SCORE = 33%. INCISION: NO OPEN AREAS. SCABBED OVER. Plan Plan: CONTINUE PT 3X'S A WK X 10 MORE VISITS. ACCOMODATE FOOT PAIN WITH EX IN SITTING AND LYING NEEDED. ANTERIOR RIGHT TOTAL HIP REPLACEMENT PRECAUTIONS. CHECK INCISION EACH VISIT UNTIL HEALED. GAIT TRAINING, ROM, AND STRENGTHENING PER PROTOCOL. Goals Goal 1:: PATIENT WILL BE INDEP AND SAFE WITH GAIT ON LEVEL SURFACES AND UP AND DOWN STEPS WITH LEAST ASSISTIVE DEVICE. Goal Time Frame: 4-6 Weeks Goal Progress: Progressing Goal 2:: IMPROVE RIGHT LE FUNCTIONAL STRENGTH TO IMPROVE STANDING, WALKING AND ADL FUNCTION Goal Time Frame: 4-6 Weeks Goal Progress: Progressing Goal 3:: IMPROVE RIGHT LE FUNCTIONAL ROM TO EASE ADL'S Goal Time Frame: 4-6 Weeks Goal Progress: Progressing Goal 4:: PATIENT WILL BE INDEP WITH A HEP FOR CONTINUED IMPROVEMENT ONCE FORMAL PHYSICAL THERAPY CONCLUDES. Goal Time Frame: 4-6 Weeks Goal Progress: Progressing Anticipated Interventions Patient/Client Instruction: Educate patient on: Condition, Plan of Care, Risk Factors, Benefits of Fitness Program For the Purpose of:: To improve self management Therapeutic Exercise to Include: Strength training, Balance training, Body mechanics, Postural training, Flexibilty training, Gait and locomotor training, Neuromotor development, Active ROM For the Purpose of:: To decrease pain, To increase ROM, To improve muscle performance and motor function, To increase tolerance to activity/condition/position, To improve ability of physical actions for home/community/work/leisure, To improve gait and locomotor functions Cryotherapy (ice pack, ice massage): Yes For the Purpose of:: To decrease pain, To decrease swelling/inflammation Please do not hesitate to contact me at [phone] by phone or if you have questions or concerns regarding this new plan of care! Sincerely, Sierra Nelson, PT, Cert MDT
--- NOTE | 2020-06-18 09:50 | HP.PTDCSUM ---
It has been my pleasure to treat ABEL MUÑOZ referred by Dr. Ever Dorantes MD, with the diagnosis of S/P R THR WITH ANTERIOR APPROACH 04/03/2020 for a total of 8 visit(s). Discharge Date: 06/18/20 Please see the following information for a summary of their discharge status. Subjective: PATIENT REPORTS SHE ISN'T HAVING ANY BACK OR HIP PAIN RIGHT NOW BUT HER L WRIST HURTS AND SHE HAS AN NIURKA'T FOR IT NEXT WEEK. REPORTS L WRIST PAIN IS UNRELATED TO ANYTHING WITH PT. FOLLOW UP WITH BACK SURGEON PENDING TODAY. STILL SEEING PAIN MGMT. FOLLOW UP WITH HIP SURGEON WAS IN MAY AND NO FURTHER HIP FOLLOW UP SCHEDULED FOR A YEAR. PATIENT REPROTS SHE DOES NOT HAVE ANY RESTICTIONS CURRENTLY FROM HER HIP SURGEON OR HER BACK SURGEON THAT SHE IS AWARE OF. PATIENT REPORTS SHE PLANS TO RESUME INDEP POOL EX IF OK'D BY HER BACK SURGEON TODAY. PATIENT REPORTS HER HIP INCISION IS COMPLETELY HEALED NOW. R hip Pain Intensity (Out of 10): 0 R foot Pain Intensity (Out of 10): 0 LEFT WRIST Pain Intensity (Out of 10): 6 % Improvement: 85 Objective/Function: PATIENT WAS SEEN TODAY FOR RE-ASSESSMENT OF PROGRESS TOWARD THE SET PT GOALS AND THE NEED FOR FURTHER PHYSICAL THERAPY VS READINESS FOR DISCHARGE. ALL GOALS HAVE BEEN MET FOR THR AND PATIENT IS APPROPRIATE FOR DISCHARGE. UPON EXAM TODAY: RIGHT ANTERIOR HIP INCISION IS FULLY HEALED. RIGHT HIP ROM AND STRENGTH IS WFL AND PATIENT IS INDEP WITH GAIT WITHOUT ASSISTIVE DEVICE. SHE IS INEP WITH A HEP AND HAS DONE REALLY WELL WITH PT. SHE HAS HAD LOW BACK SURGERY, KJ HIP REPLMTS AND KJ KNEE REPLMTS NOW AND DOES STILL WALK WITH A LIMP. Goal 1:: PATIENT WILL BE INDEP AND SAFE WITH GAIT ON LEVEL SURFACES AND UP AND DOWN STEPS WITH LEAST ASSISTIVE DEVICE. Goal Progress: Goal Met Goal 2:: IMPROVE RIGHT LE FUNCTIONAL STRENGTH TO IMPROVE STANDING, WALKING AND ADL FUNCTION Goal Progress: Goal Met Goal 3:: IMPROVE RIGHT LE FUNCTIONAL ROM TO EASE ADL'S Goal Progress: Goal Met Goal 4:: PATIENT WILL BE INDEP WITH A HEP FOR CONTINUED IMPROVEMENT ONCE FORMAL PHYSICAL THERAPY CONCLUDES. Goal Progress: Goal Met Plan: D/C TO INDEP HEP AND POOL EX. PATIENT AGREEABLE. If there are questions or concerns regarding this patient's physical therapy, please feel free to call me at [phone]. Thank you for the referral of this patient. Sincerely, Sierra Nelson PT, Cert MDT
== END 2020-06-18 19:00 | disposition home or self-care (01) ==
LOC: PT 08:00
PROVIDERS: Referring Provider Orthopaedic Surgery; Visit Provider Orthopaedic Surgery
DX: Z47.1 Aftercare following joint replacement surgery (principal); Z96.641 Presence of right artificial hip joint
CPT/HCPCS: 97110; 97162; 97164; 97530

== ENCOUNTER → 2020-06-29 12:25 | Outpatient (CLI) | payer MEDICARE, SELFPAY ==
[2020-06-03 08:34] VITALS: BMI 31.8
[2020-06-29 15:44] LABS: Absolute Lymphocyte Count 3.45 X10^3/uL (0.83-4.51); Absolute Neutrophil Count 6.6 X10^3/uL (2.0-7.7); Basophil# 0.06 X10^3/uL; Basophil% 0.5 % (0-1); Eosinophil# 0.25 X10^3/uL; Eosinophils% 2.2 % (0-5); Hematocrit 42.2 % (37-47); Hemoglobin 12.6 g/dL (12.0-15.0); Lymphocyte # 3.45 X10^3/ul (4.0); Lymphocyte % 30.6 % (19-41); Mean Corp Hgb Conc 29.9 g/dL (32-36); Mean Corpuscular Hgb 25.6 pg (27.0-32.0); Mean Corpuscular Volume 85.8 fL (81-99); Mean Platelet Vol. 10.4 fl (6.2-12.0); Monocyte# 0.82 X10^3/uL; Monocyte% 7.3 % (0-10); NRBC Flagged by Analyzer 0 % (0-5); Neutrophil # 6.64 X10^3/uL (2.7-7.7); Platelet Count 374 K/mm3 (150-450); RBC Distribution Width CV 15.9 % (11.6-14.6); Red Blood Count 4.92 M/mm3 (4.2-5.4); White Blood Count 11.3 K/mm3 (4.4-11.0)
== END ==
PROVIDERS: Referring Provider Family Medicine; Visit Provider Family Medicine
DX: Z00.00 Encounter for general adult medical examination without abnormal findings (principal); E03.9 Hypothyroidism, unspecified; R03.0 Elevated blood-pressure reading, without diagnosis of hypertension; Z13.6 Encounter for screening for cardiovascular disorders
CPT/HCPCS: 36415; 84443; 85025

== ENCOUNTER → 2020-09-02 11:24 | Outpatient (CLI) | payer MEDICARE, SELFPAY ==
[2020-06-03 08:34] VITALS: BMI 31.8
[2020-09-02 15:29] LABS: Color, Urine Yellow (Yellow); Glucose, Dipstick Normal (Normal); Ketone-Dipstick 5 mg/dl (Negative); Leukocyte Esterase-Dipstick 25 /ul (Negative); Nitrite-Dipstick Negative (Negative); Occult Blood-Urine Negative /ul (Negative); Protein-Dipstick Negative (Negative); Urine Bilirubin Dipstick 1 mg/dL (Negative); Urine Clarity Clear (Clear); Urine Urobilinogen Normal (Normal)
== END ==
PROVIDERS: Referring Provider Internal Medicine Rheumatology; Visit Provider Internal Medicine Rheumatology
DX: R82.90 Unspecified abnormal findings in urine (principal)
CPT/HCPCS: 81002

== ENCOUNTER → 2020-11-09 14:31 | Outpatient (CLI) | payer MEDICARE, SELFPAY ==
[2020-06-03 08:34] VITALS: BMI 31.8
[2020-11-09 18:12] LABS: Color, Urine Yellow (Yellow); Glucose, Dipstick Normal (Normal); Ketone-Dipstick Negative (Negative); Leukocyte Esterase-Dipstick Negative /ul (Negative); Nitrite-Dipstick Negative (Negative); Occult Blood-Urine Negative /ul (Negative); Protein-Dipstick Negative (Negative); Urine Bilirubin Dipstick Negative (Negative); Urine Clarity Sl. Cloudy (Clear); Urine Urobilinogen Normal (Normal)
[2020-11-09 18:36] LABS: Thyroid Stim Hormone (TSH) 3.39 uIU/mL (0.358-3.74)
== END ==
PROVIDERS: Referring Provider Family Medicine; Visit Provider Family Medicine
DX: R30.0 Dysuria (principal); E03.9 Hypothyroidism, unspecified
CPT/HCPCS: 36415; 81002; 84443; 87086; 87088

== ENCOUNTER → 2020-11-10 06:59 | Outpatient (CLI) | payer MEDICARE, SELFPAY ==
[2020-06-03 08:34] VITALS: BMI 31.8
--- NOTE | 2020-11-10 07:02 | BI_ITS ---
MAMMOGRAPHY - BILATERAL SCREENING REASON FOR EXAM: Female, 70 years old. Routine annual screening examination. PERTINENT HISTORY: Non-contributory. TECHNIQUE: Digital bilateral breast mili (3D mammographic acquisition) in the CC and MLO projections. 2-D mediolateral oblique (MLO) and craniocaudad (CC) views of both breasts were obtained. CAD: Full Field Digital Mammography with Computer Added Detection was performed. COMPARISON: Comparison is made with prior study dated 03/07/2019 and 09/24/2017. FINDINGS: Breast Composition: There are scattered areas of fibroglandular density. There are no dominant masses or suspicious calcifications. No other significant abnormalities are identified. There has been no significant change since the prior study. BI/SCRN MAMM (CAD)W/MILI BILAT IMPRESSION: Stable bilateral screening mammogram. Yearly follow-up mammogram recommended. (A) ASSESSMENT CATEGORY: BIRADS Category 1: Negative. A letter regarding these results will be sent to the patient by the facility within 30 days. Approximately 10% of breast cancers are not detected by mammography. A normal mammogram should not delay biopsy of a clinically suspicious abnormality. [id number] Electronically Signed: Yvon Hamlin MD at 8:32 EDT , Service support ,
== END ==
PROVIDERS: Referring Provider Family Medicine; Visit Provider Family Medicine
DX: Z12.31 Encounter for screening mammogram for malignant neoplasm of breast (principal)
CPT/HCPCS: 77063; 77067

== ENCOUNTER → 2021-03-11 13:25 | Outpatient (CLI) | payer MEDICARE, SELFPAY ==
[2021-03-07 10:29] LABS: BUN 16 mg/dL (7-18); Creatinine, Serum 0.81 mg/dL (0.55-1.02); EST Glomerular Filtration Rate 74 mL/min (>60); Est Glom Filt Rate - Afr Amer 89 mL/min (>60)
--- NOTE | 2021-03-11 13:28 | MRI_ITS ---
EXAM: MR LUMBAR SPINE WITHOUT AND WITH INTRAVENOUS CONTRAST CLINICAL INDICATION: POST LAMINECTOMY SYNDROME STENOSIS TECHNIQUE: Multiplanar and multisequence MR images of the lumbar spine without and with intravenous contrast. This report was created using cinvolve report Surgient technology. CONTRAST: 18CC IV DOTAREM COMPARISON: ct ap 12.06.2019 FINDINGS: VERTEBRAE: Laminectomy changes at L4 and L5. There is enhancing scar at this level. No drainable abscess. There is endplate spondylosis of the vertebral body. Vertebral body heights are preserved. Normal alignment. No spondylolisthesis. There is preservation of the normal lumbar lordosis. SPINAL CORD: Unremarkable. Normal position and signal intensity of the conus medullaris. SOFT TISSUES: Unremarkable. DISCS/SPINAL CANAL/NEURAL FORAMINA: L1-L2: Unremarkable. Normal disc height and morphology. Normal spinal canal, lateral recesses and neuroforamina. L2-L3: Unremarkable. Normal disc height and morphology. Normal spinal canal, lateral recesses and neuroforamina. L3-L4: There is bilateral neural foraminal stenosis from L3-4 to L5-S1. There is compression of exiting respective nerve roots. L4-L5: Unremarkable. Normal disc height and morphology. Normal spinal canal, lateral recesses and neuroforamina. L5-S1: See above. OTHER FINDINGS: Multilevel facet arthropathy. Loss of intervertebral disc height. MRI/Spine Lumbar W/WO Contrast IMPRESSION: Laminectomy changes at L4 and L5. There is enhancing scar at this level. No drainable abscess. Electronically Signed: Bk Adams MD at 14:47 EDT , Service support ,
== END ==
PROVIDERS: Referring Provider Nurse Practitioner Family; Visit Provider Nurse Practitioner Family
DX: M46.96 Unspecified inflammatory spondylopathy, lumbar region (principal); M51.37 Other intervertebral disc degeneration, lumbosacral region; M96.1 Postlaminectomy syndrome, not elsewhere classified; M54.17 Radiculopathy, lumbosacral region; M47.817 Spondylosis without myelopathy or radiculopathy, lumbosacral region; M48.07 Spinal stenosis, lumbosacral region
CPT/HCPCS: 36415; 72158; 82565; 84520; A9575

== ENCOUNTER → 2021-04-01 14:00 | Outpatient (CLI) | payer MEDICARE, SELFPAY ==
--- NOTE | 2021-04-01 14:05 | ART_ITS ---
Reason For Study: Rt Leg Pain Procedure A bilateral lower extremity continuous wave Doppler with analog waveform analysis,segmental pressures,and ankle brachial indexes with exercise. Left Segmental Pressures Left brachial= 163mmHg. Left posterior tibial artery = 163mmHg. Left dorsalis pedis artery = 187mmHg. Left digit = 103 mmHg. Right Segmental Pressures Right brachial= 143mmHg. Right thigh = 203mmHg. Right calf = 155mmHg. Right posterior tibial artery = 115mmHg. Right dorsalis pedis artery = 113mmHg. Right digit = 50 mmHg. Indices The right ankle brachial index by the posterior tibial artery is 0.71. The right ankle brachial index by the dorsalis pedis is 0.69. The right digital-brachial index is 0.31. The right post exercise ankle brachial index is 0.61. The left ankle brachial index by the posterior tibial artery is 1.00. The left ankle brachial index by the dorsalis pedis is 1.15. The left digital-brachial index is 0.63. The left post exercise ankle brachial index is 1.16. VL/Lower Ext Art Exam w/ Exercise Interpretation Summary Monophasic Doppler waveforms are noted at ankle level on the right. Triphasic D oppler waveforms are noted at ankle level on the left. Pulse-volume recordings appear diminished at digital level on the right, but satisfactory at all other levels bilaterally. The resting right ankl e-brachial index is moderately diminished. The resting left ankle-brachial index is normal. The rig ht digital-brachial index is moderately to severely diminished. The left digital-brachial index is mildly diminished. The patient was exercised for 2 minutes and 30 seconds (abbreviated due to righ t calf pain), following which the right ankle pressure remained relatively unchanged. The lef t ankle pressure augmented, which is a normal physiological response. 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 Arterial flow appears normal at ankle level on the left. There is evidence of rrnkknsa-ud-oub ere arterial occlusive disease at digital level on the right. There is evidence of mild luci rial occlusive disease at digital level on the left. Ordering Physician: ELSIE MCKINLEY Referring Physician: ELSIE MCKINLEY Performed By: Bambi Mclean RDCS/NATASHAT
== END ==
DX: M79.604 Pain in right leg (principal); I77.1 Stricture of artery
CPT/HCPCS: 93924

== ENCOUNTER → 2021-05-13 09:49 | Outpatient (CLI) | payer MEDICARE, SELFPAY ==
[2021-05-13 12:05] LABS: Absolute Lymphocyte Count 2.82 X10^3/uL (0.83-4.51); Basophil# 0.06 X10^3/uL; Basophil% 0.7 % (0-1); Eosinophil# 0.32 X10^3/uL; Eosinophils% 3.6 % (0-5); Lymphocyte # 2.82 X10^3/ul (0.83-4.51); Lymphocyte % 31.7 % (19-41); Mean Corp Hgb Conc 31.8 g/dL (32-36); Mean Corpuscular Hgb 27.8 pg (27.0-32.0); Mean Corpuscular Volume 87.5 fL (81-99); Mean Platelet Vol. 10.7 fl (6.2-12.0); Monocyte% 6.7 % (0-10); NRBC Flagged by Analyzer 0 % (0-5); Neutrophil # 5.03 X10^3/uL (2.7-7.7); Neutrophil % 56.6 % (47-70); Platelet Count 287 K/mm3 (150-450); RBC Distribution Width CV 16.7 % (11.6-14.6); RBC Distribution Width SD 53.6 fl (35.1-43.9); Red Blood Count 5.03 M/mm3 (4.2-5.4); White Blood Count 8.9 K/mm3 (4.4-11.0)
[2021-05-13 12:27] LABS: ALB/GLOB Ratio 0.7 RATIO (0.9-2.4); AST(SGOT) 22 U/L (15-37); Alanine Aminotransfer ALT/SGPT 29 U/L (13-56); Albumin, Serum 2.9 g/dL (3.2-5.0); Alkaline Phosphatase 89 U/L (45-117); Anion Gap 5 (5-15); BUN 12 mg/dL (7-18); BUN/Creat Ratio 14.6 RATIO (10-20); Calcium,Total 8.7 mg/dL (8.5-10.1); Chloride 108 mmol/L (98-107); Cholesterol 222 mg/dL (200); Creatinine, Serum 0.82 mg/dL (0.55-1.02); EST Glomerular Filtration Rate 73 mL/min (>60); Est Glom Filt Rate - Afr Amer 88 mL/min (>60); Globulin 3.9 g/dL (2.2-4.2); Glucose 88 mg/dL (74-106); High Density Lipoprotein 69 mg/dL; Potassium 4.5 mmol/L (3.5-5.1); Protein, Total 6.8 g/dL (6.4-8.2); Sodium Level 141 mmol/L (136-145); Thyroid Stim Hormone (TSH) 2.92 uIU/mL (0.358-3.74); Triglycerides 166 mg/dL; Very Low Density Lipoprotein 33 mg/dL (5-40)
== END ==
PROVIDERS: Referring Provider Family Medicine; Visit Provider Family Medicine
DX: Z00.00 Encounter for general adult medical examination without abnormal findings (principal); E03.9 Hypothyroidism, unspecified; Z13.6 Encounter for screening for cardiovascular disorders
CPT/HCPCS: 36415; 80053; 80061; 84443; 85025

== ENCOUNTER 2021-07-11 20:33 | Observation (INO) | payer MEDICARE, SELFPAY ==
[2021-07-11 20:34] VITALS: BP 172/97; PULSE 69; RESP 14; TEMP 37; O2SAT 100; BMI 41.1
--- NOTE | 2021-07-11 21:18 | EDS_ITS ---
HPI History of Present Illness Chief Complaint: Lower Extremity Injury Narrative Narrative: 70-year-old female with nontraumatic left lumbar paraspinal musculature pain and left gluteal pain. This was acute in onset earlier this evening. Patient states that all she was doing was walking. This feels like a spasm. She is not had this pain before. Patient denies any loss of bladder or bowel control. She denies urinary tension. She denies saddle anesthesia. Patient took nothing for pain prior to arrival because she cannot get upstairs to get it. Patient had her friend bring her in. PFSH PFS Home Medications bupropion HCl 450 mg PO DAILY 07/29/18 [History Last Taken Unknown] duloxetine 120 mg PO DAILY 07/29/18 [History Last Taken Unknown] hydroxychloroquine [Plaquenil] 200 mg PO DAILY 07/29/18 [History Last Taken Unknown] levothyroxine [Synthroid] 100 mcg PO DAILY 07/29/18 [History Last Taken Unknown] ondansetron 4 mg disintegrating tablet 4 mg PO Q8H PRN PRN #10 tab 06/03/20 [Rx Last Taken Unknown] cyclobenzaprine 10 mg PO TID PRN #20 tab 07/11/21 [Rx Last Taken Unknown] naproxen [Naprosyn] 500 mg PO BID PRN #20 tab 07/11/21 [Rx Last Taken Unknown] Allergy/AdvReac Type Severity Reaction Status Date / Time No Known Allergies Allergy Verified 01/03/19 07:03 Social History Smoking Status: Never smoker [facility] ED Constitutional Constitutional ED: Denies fever(s) or sweats Eyes Eyes: Denies blurry vision or diplopia ENT ENT ED: Denies rhinorrhea or sore throat Cardiovascular Cardiovascular: Denies chest pain or palpitations Respiratory/Chest Respiratory/Chest: Denies cough or dyspnea Gastrointestinal Gastrointestinal: Denies abdominal pain, nausea or vomiting Genitourinary Genitourinary ED: Denies dysuria or hematuria Musculoskeletal Musculoskeletal: Reports back pain and other Details: Left gluteal pain ; Denies myalgias Integumentary Denies Abrasions or rash Neurologic Neurologic: Denies headache(s) or weakness EXAM Physical Exam Const Vital Signs: 07/11/21 20:34 Temperature 98.6 F Temperature Source Temporal Pulse Rate 69 Respiratory Rate 14 Blood Pressure 172/97 H Blood Pressure Mean 122 Pulse Ox 100 Oxygen Delivery Method Room Air Positive well nourished General Appearance ED: NAD HEENT normocephalic and atraumatic Chest Wall inspection of chest normal and palpation of chest normal Resp normal respiratory effort and clear to auscultation bilaterally Cardio regular rate and regular rhythm Back/Spine Back/Spine Narrative: Tenderness palpation left lumbar paraspinal musculature and left gluteal region. Pain elicited with extension mild flexion of the left hip. No midline lumbar spinal deformity or step-off. Lumbar Spine / Lower Back: Negative for lumbar spinal tenderness Neuro oriented x3 and CN's II-XII intact bilaterally Sensorium / Orientation: alert Psych mental status grossly normal Skin Lesions: no lesions Rashes: no rashes MDM MDM MDM Narrative Medical decision making narrative: Patient was given Norflex and Toradol. She is also given a Lidoderm patch to the area. Patient attempted to get up to ambulate and had too much pain to stand up. At this point she was given IM morphine. After 15 or 20 minutes had attempted to get her up at the bedside and she was able to get up to standing and then immediately had to sit down because she could not ambulate. Patient concerned because he lives at home and cannot ambulate. I will obtain images of the lumbar spine and basic lab work. She is given a second dose of morphine IV this time with a dose of Zofran. Patient will likely need admission for inability to ambulate. Patient will be signed out to incoming ED physician for follow-up and management. Impression: 1. Lumbar strain Discharge Plan Triage Chief Complaint: Lower Extremity Injury ED Provider: Harjit Hollins Dx/Rx/DC Orders Instructions: ED Back Sprain/Strain Prescriptions: New naproxen [Naprosyn] 500 mg tablet 500 mg PO BID PRN (Reason: pain) Qty: 20 RF: 0 cyclobenzaprine 10 mg tablet 10 mg PO TID PRN (Reason: muscle spasm) Qty: 20 RF: 0 No Action ondansetron 4 mg tablet,disintegrating 4 mg PO Q8H PRN PRN (Reason: Nausea) Qty: 10 RF: 0 levothyroxine [Synthroid] 100 MCG tablet 100 mcg PO DAILY RF: 0 hydroxychloroquine [Plaquenil] 200 MG tablet 200 mg PO DAILY RF: 0 bupropion HCl 300 MG tablet extended release 24 hr 450 mg PO DAILY RF: 0 duloxetine 60 MG capsule 120 mg PO DAILY RF: 0 Primary Care Provider: Lobo Newsome Referrals: Lobo Newsome [Primary Care Provider] - Disposition Disposition: Home, Self Care
[2021-07-11] MEDS: Ketorolac 15 MG/ML Vial IM (21:46)
[2021-07-11] MEDS: Lidocaine 5% Patch 1 PATCH TOPICAL (21:47)
[2021-07-11] MEDS: Orphenadrine 60 MG/2 ML Ampul IM (21:47)
[2021-07-11] MEDS: Morphine 4 MG/ML Syringe IM (22:47)
--- NOTE | 2021-07-11 23:19 | RAD_ITS ---
EXAM: XR LUMBOSACRAL SPINE, 2 OR 3 VIEWS CLINICAL INDICATION: left gluteal pain TECHNIQUE: Frontal and lateral views of the lumbar spine and sacrum. This report was created using [employer] report generation technology. COMPARISON: None. FINDINGS: VERTEBRAE: No acute or healing fracture or acute posttraumatic malalignment. No unusual lytic or sclerotic lesions of bone. No spondylolisthesis. Preservation of the normal lumbar lordosis. No significant facet arthropathy. DISC SPACES: At least moderate degenerative changes at multiple levels of the spine. GASTROINTESTINAL TRACT: Stool and gas throughout the colon. Included bowel gas pattern is non-obstructive. OTHER FINDINGS: Prior cholecystectomy. RAD/Lumbar Spine 2 or 3 Views IMPRESSION: Degenerative changes but no acute or healing fracture or malalignment. Electronically Signed: Suresh Colvin MD at 0:07 EST ,
[2021-07-11] MEDS: Morphine 4 MG/ML Syringe IV (23:38)
[2021-07-11] MEDS: Ondansetron 4 MG/2 ML Vial IV (23:38)
[2021-07-11 23:44] LABS: Absolute Lymphocyte Count 2.88 X10^3/uL (0.83-4.51); Absolute Neutrophil Count 5.6 X10^3/uL (2.0-7.7); Basophil# 0.06 X10^3/uL; Basophil% 0.6 % (0-1); Eosinophil# 0.22 X10^3/uL; Eosinophils% 2.3 % (0-5); Hematocrit 41.1 % (37-47); Lymphocyte # 2.88 X10^3/ul (0.83-4.51); Lymphocyte % 30.3 % (19-41); Mean Corp Hgb Conc 31.6 g/dL (32-36); Mean Corpuscular Hgb 28.4 pg (27.0-32.0); Mean Corpuscular Volume 89.7 fL (81-99); Mean Platelet Vol. 10.4 fl (6.2-12.0); Monocyte# 0.75 X10^3/uL; Monocyte% 7.9 % (0-10); NRBC Flagged by Analyzer 0 % (0-5); Neutrophil # 5.56 X10^3/uL (2.7-7.7); Neutrophil % 58.6 % (47-70); Platelet Count 312 K/mm3 (150-450); RBC Distribution Width CV 14.6 % (11.6-14.6); RBC Distribution Width SD 48.2 fl (35.1-43.9); Red Blood Count 4.58 M/mm3 (4.2-5.4); White Blood Count 9.5 K/mm3 (4.4-11.0)
--- NOTE | 2021-07-11 23:53 | PCM.HP.STD ---
[facility] - General General Date of Admission: 07/11/21 HPI Narrative ABEL MUÑOZ, is a 70 F a significant medical history of osteoarthritis in multiple joints; fibromyalgia; laminectomy; carpal tunnel surgery; tendon transplant of the right wrist; and broken nose repair who presents to the emergency department with excruciating left posterior hip pain that started few hours before presentation. Her symptoms started when she was trying to get out of a chair. She reports progressively worsening sharp excruciating pain of the left hip that radiates to her left waist into her left groin. Walking or standing up exacerbate the pain. Resting improves the pain. At the emergency department because she could not walk secondary to the pain a decision was made for patient to stay at the hospital. ON LICENSE OF [facility] Home Medications bupropion HCl 450 mg PO DAILY 07/29/18 [History Last Taken Unknown] duloxetine 120 mg PO DAILY 07/29/18 [History Last Taken Unknown] hydroxychloroquine [Plaquenil] 200 mg PO DAILY 07/29/18 [History Last Taken Unknown] levothyroxine [Synthroid] 100 mcg PO DAILY 07/29/18 [History Last Taken Unknown] ondansetron 4 mg disintegrating tablet 4 mg PO Q8H PRN PRN #10 tab 06/03/20 [Rx Last Taken Unknown] cyclobenzaprine 10 mg PO TID PRN #20 tab 07/11/21 [Rx Last Taken Unknown] naproxen [Naprosyn] 500 mg PO BID PRN #20 tab 07/11/21 [Rx Last Taken Unknown] Allergy/AdvReac Type Severity Reaction Status Date / Time No Known Allergies Allergy Verified 01/03/19 07:03 Family History Mother Oat cell carcinoma of lung Surgical History History of broken nose History of hip replacement History of knee replacement History of laminectomy Social History household members: none number of children: 2 current occupational status: retired Smoking Status: Never smoker ROS ROS Narrative Constitutional: Denies fever, chills, fatigue, anorexia and change in weight Eyes: Denies blurry vision, change in eye color, change in vision, discharge from eye(s), double vision, erythema, eye pain, loss of vision or other HEENT: Denies abnormal hearing, dysphagia, ear pain, epistaxis, headache(s), hearing loss, nasal congestion, nasal discharge, post nasal drip, sinus pressure, sore throat or other Cardiovascular: Denies chest pain or palpitations. Denies dyspnea on exertion, orthopnea and paroxysmal nocturnal dyspnea Respiratory/Chest: Denies cough, excessive phlegm production, shortness of breath with exertion and wheezing Gastrointestinal: Denies abdominal pain, coffee ground emesis, constipation, diarrhea, dyspepsia, hematemesis, hematochezia, loose stools, melena, nausea, vomiting or other Genitourinary: Denies burning urination, difficulty urinating, dysuria, hematuria, nocturia, urinary frequency, urinary hesitancy, urinary incontinence, urinary urgency or other Musculoskeletal: Reports arthralgia. Reports left hip pain. Neurologic: Denies abnormal gait, abnormal speech, confusion, disequilibrium, dizziness, headache(s), numbness, paresthesias, seizure-like activity, seizures, syncope, tingling, tremor(s) or other Psychiatric: Denies anxiety, depression, homicidal ideation, suicidal ideation or other Endocrinology: Denies change in body appearance, cold intolerance, excessive sweating, heat intolerance, polydipsia, polyuria or other Hematologic/Lymphatic: Denies anemia, easy bleeding, easy bruising, lymphadenopathy or other Integumentary: Denies rashes Allergic/Immunologic: Denies rhinitis, hives, eczema, asthma or other Vital Signs Vital Signs Vital Signs: 07/11/21 20:34 Temperature 98.6 F Temperature Source Temporal Pulse Rate 69 Respiratory Rate 14 Blood Pressure 172/97 H Blood Pressure Mean 122 Pulse Ox 100 Oxygen Delivery Method Room Air Weight Weight: 102.058 kg Body Mass Index (BMI) 41.1 Physical Exam Narrative Physical exam: General: Well-nourished, well-developed. Head: Normocephalic, atraumatic, no tenderness Eyes: PERRLA, EOMI ENT, no trauma, moist mucous membranes, no rhinorrhea Neck: Nontender, full range of motion, no spinal tenderness, deformities, step-off CVS: Regular rate and rhythm. S1-S2 present. No murmur, gallop or rub. Respiratory : clear to auscultation bilaterally, chest wall nontender, no wheezing Abdomen: Soft, nontender, nondistended, normal bowel sounds, no masses : Deferred Back: Nontender, no CVA tenderness, no midline spinal tenderness, deformities, step-offs Extremities: Straight leg raise negative bilateral. Nontender left hip. Full range of motion, no trauma Skin: Normal color, no trauma, abrasions Neuro: Alert, oriented, cranial nerves II through XII grossly intact. Psychiatry: Normal mood. Normal affect. Not depressed. Not anxious. Results Lab / Micro Data Result Diagrams: 07/11/21 23:39 07/11/21 23:39 Labs: Laboratory Results - last 24 hr 07/11/21 23:39: WBC 9.5, RBC 4.58, Hgb 13.0, Hct 41.1, MCV 89.7, MCH 28.4, MCHC 31.6 L, RDW Std Deviation 48.2 H, RDW Coeff of Mikel 14.6, Plt Count 312, MPV 10.4, Immature Gran % (Auto) 0.300, Neut % (Auto) 58.6, Lymph % (Auto) 30.3, [place] % (Auto) 7.9, Eos % (Auto) 2.3, Baso % (Auto) 0.6, Absolute Neuts (auto) 5.6, Absolute Lymphs (auto) 2.88, Nucleated RBC % 0 Assessment & Plan Assessment/Plan (1) Hip pain, left: PLAN: Intractable left hip pain Received Norflex; morphine IV and Toradol at the emergency department. Also received Lidoderm patch at the emergency department. BMP and CBC were reviewed and it was unremarkable. Lumbar x-ray image was independently visualized and interpreted. There is no acute process. I agree with radiologist interpretation of degenerative changes. Acetaminophen [id number]-auv-rdlva ordered. Lidocaine patch ordered. We will continue home Flexeril. Oxycodone 5 mg every 4 hours for pain 4-5; and 10 mg every 4 hours for pain 6-10. DVT prophylaxis: Subcutaneous Lovenox ordered. Charges/Coding Visit Charges OBSV E&M: 93496 Initial observation care L2
[2021-07-11 23:57] VITALS: BP 166/87; PULSE 74; RESP 15; TEMP 36.7; O2SAT 97
[2021-07-12 00:03] LABS: Anion Gap 5 (5-15); BUN 18 mg/dL (7-18); BUN/Creat Ratio 18.6 RATIO (10-20); Calcium,Total 8.5 mg/dL (8.5-10.1); Chloride 109 mmol/L (98-107); Creatinine, Serum 0.97 mg/dL (0.55-1.02); EST Glomerular Filtration Rate 60 mL/min (>60); Est Glom Filt Rate - Afr Amer 73 mL/min (>60); Estimated Creatinine Clearance 42.07 ml/min; Glucose 99 mg/dL (74-106); Potassium 4.5 mmol/L (3.5-5.1); Sodium Level 139 mmol/L (136-145)
[2021-07-12 00:41] VITALS: BMI 40.9
--- NOTE | 2021-07-12 00:42 | PCS.PANDOC ---
PANDEMIC DOCUMENTATION INITIATED: Date: 01/24/2021 Time: 190
[2021-07-12 00:45] VITALS: BP 155/62; PULSE 70; RESP 18; TEMP 36.6; O2SAT 95
[2021-07-12] MEDS: Acetaminophen 325 MG Tablet 650 MG PO ×3 (01:21→11:47)
[2021-07-12] MEDS: oxyCODONE 5 MG Tablet PO ×2 (04:12→09:04)
[2021-07-12 06:40] VITALS: BP 141/68; PULSE 65; RESP 16; TEMP 36.5; O2SAT 96
[2021-07-12] MEDS: Enoxaparin 40 MG/0.4 ML Syringe SC (09:05)
[2021-07-12] MEDS: Lidocaine 5% Patch 1 PATCH TOPICAL (09:05)
[2021-07-12] MEDS: 0.9% Saline Lock 10 ML Syringe IV (11:23)
[2021-07-12] MEDS: dexAMETHasone 4 MG/ML Vial IV (11:23)
[2021-07-12 11:25] VITALS: BP 146/63; PULSE 62; RESP 16; TEMP 36.6; O2SAT 98
[2021-07-12] MEDS: Gabapentin 400 MG Capsule PO (11:47)
--- NOTE | 2021-07-12 12:05 | CASEMGMT ---
Addendum entered by Oneida Wilson 07/12/21 13:14: Social Work W/pt's permission, SW checked on pt's penitentiary benefits. Pt's benefits for in and out of network are the same, $0 per day, unlimited days, subject to precert. SW let pt know her benefits, explained this means if a penitentiary is needed for rehab, we can send a referral to any of the facilities on the list. Pt states understanding. ZANE Noe Original Note: Social Work SW met w/pt in room in regard to prior level of function and anticipated discharge plan. PCP: Dr. Newsome Specialists: Pt goes to [facility] for her hips, knees, back and rheumatology. Pt has had surgery with [facility] for hips, knees and back. Pt also sees Dr. Matias for pain management. Living arrangements/Prior level of function/DME: Pt lives home alone in a story home with 2-3 steps to get in depending on the entrance. Pt independent with all ADL's including cooking, cleaning, driving, organizing medications, personal ADLs. Pt states she does have someone come over twice per week to run with the dog. Pt uses a cane when out at baseline, and a rollator walker occasionally. LNOK: Pt has a daughter, Angela in [place], and a son, Manoj in [place]. Pt also reports a supportive niece in [place] and many supportive friends. Pt states one of her friends brought her in to the ER last night. LW/POA: Pt states Juliette is her healthcare POA and the papers are on file at the litigation attorney's office C/SNF/Outpt PT: Pt has had home health, does not remember agency. Pt has also had outpt PT in the past at [facility]. Pt has never been to SNF for rehab. In the past for all of her scheduled surgeries, her daughter from [place] has been able to come into town and help her. Pt states her daughter works from home so can work from here. Pt has not had to go to rehab in the past since her daughter has helped her. SW pointed out to pt however that these were scheduled surgeries, and this is unexpected. She has not spoken to her daughter yet about coming to help her, she states that you are the first person to speak to me about this, meaning plans after her hospital stay. Pt would prefer to go home, is open to home health care. SW did give pt a list of halfway facilities, that take pt's insurance, in pt's preferred geographic area, complete with quality and resource use data. SW explained SW can check back w/pt after she's worked with therapy, to again review discharge options. SW will continue to follow. Plan: ZANE Ward
--- NOTE | 2021-07-12 15:48 | PCM.DC ---
Discharge Instructions Diet Discharge Diet: No restrictions Activity Discharge Activity: Return to Normal Activity Weight Bearing Status: Full weight bearing Follow Up Care Test Results: Test results from this visit will be discussed in further detail at your follow-up appointment, if applicable. Discharge Plan Admission Admit Date/Time: 07/11/21 23:45 Primary Reason for Your Visit: radicular back pain Attending Provider: Elliott Magana Primary Care Provider: Lobo Newsome Instructions Patient Instructions: ED Back Sprain/Strain Additional Instructions / Restrictions: do not take Ibuprofen or Alleve when on Prednisone Discharge Orders/Prescriptions Prescriptions: New cyclobenzaprine 10 mg tablet 10 mg PO TID PRN (Reason: muscle spasm) Qty: 20 RF: 0 hydrocodone-acetaminophen 5-325 mg tablet 1 - 2 tab PO Q6H PRN (Reason: pain, severe) 7 Days Qty: 30 RF: 0 prednisone 10 mg tablet 20 mg PO BID Qty: 28 RF: 0 gabapentin 100 mg capsule 100 mg PO TID Qty: 90 RF: 0 Continued levothyroxine [Synthroid] 100 MCG tablet 100 mcg PO DAILY RF: 0 hydroxychloroquine [Plaquenil] 200 MG tablet 200 mg PO DAILY RF: 0 duloxetine 60 MG capsule 120 mg PO DAILY RF: 0 mirtazapine QHS RF: 0 gabapentin 300 mg PO/SL TID RF: 0 Referrals / Follow Up: Greg Hooker MD [STAFF PHYSICIAN] - See Referral Note (call for follow up appointment) Lobo Newsome [Primary Care Provider] - Disposition Disposition (needs filled in before D/C Order can be placed): Home, Self Care
--- NOTE | 2021-07-12 18:50 | DS.PCM_ITS ---
Providers Date of Admission: 07/11/21 Date of Discharge: 07/12/21 Primary Care Physician: Lobo Newsome Reason For Visit: INTRACTABLE BACK PAIN Diagnosis Discharge Diagnosis (1) Hip pain, left: Status: Acute Code(s): M25.552 - Pain in left hip Plan: Final diagnosis: #1 left lumbar radicular pain secondary to degenerative joint disease of the lumbar spine #2 degenerative joint disease of the lumbar spine #3 chronic depression #4 hypothyroidism Medications at Discharge Home Medications duloxetine 120 mg PO DAILY 07/29/18 hydroxychloroquine [Plaquenil] 200 mg PO DAILY 07/29/18 levothyroxine [Synthroid] 100 mcg PO DAILY 07/29/18 cyclobenzaprine 10 mg PO TID PRN #20 tab 07/11/21 gabapentin 100 mg PO TID #90 cap 07/12/21 gabapentin 300 mg PO/SL TID 07/12/21 hydrocodone-acetaminophen 1 - 2 tab PO Q6H PRN 7 Days #30 tab 07/12/21 mirtazapine QHS 07/12/21 prednisone 20 mg PO BID #28 tab 07/12/21 Hospital Course Operations None Procedures None Summary of Care Provided Minutes Spent on Discharge: 32 Hospital Course: 70-year-old white female was seen in the emergency room [facility] with complaints of left-sided paraspinal pain radiating into her left upper buttocks. Patient was given Norflex and Toradol in the emergency room and also had a Lidoderm patch applied to the area. Patient tried to get up to ambulate but had too much lower left back pain and buttocks area pain to ambulate. Patient was given IM morphine, x-rays of the lumbar spine were obtained which showed degenerative changes of the lumbar spine without a fracture or malalignment. Because the patient was unable to ambulate, she felt she was unable to be discharged home from the ER, she was placed in observation status on PCU, she was placed on IV Decadron and given gabapentin, she was also seen by PT and OT. Patient's ADLs improved during her hospitalization overnight and she felt as if she could be discharged home. On 07/12/2021, patient was seen and examined: On examination she appeared in good health and spirits, she does not appear to be in any distress. Vital signs as documented. Skin warm and dry and without overt rashes. Neck without JVD, thyroid appears normal, trachea is midline, neck is supple. Lungs clear, normal air movement was noted. Heart exam notable for regular rhythm, normal sounds and absence of murmurs, rubs or gallops. Abdomen unremarkable and without evidence of organomegaly, masses, or abdominal aortic enlargement, bowel sounds are present in all 4 quadrants, no abdominal tenderness was noted. Extremities nonedematous, no cyanosis was noted, no clubbing was noted. Neuro: Cranial nerves II through XII are grossly intact, no focal motor deficits were noted, sensation to light touch and pinprick is intact, motor exam 5/5 throughout. Psych: Patient is alert and oriented x3, she does not appear anxious or dep ressed, she does not appear agitated. On 07/12/2021, patient was discharged home, she was to follow-up with her chronic pain management physician Dr. Matias, she was discharged on gabapentin, [place] for pain, and prednisone. Weight / BMI Weight Weight: 101.5 kg Body Mass Index (BMI) 40.9 ABG / Lab / Microbiology Data Result Diagrams: 07/11/21 23:39 07/11/21 23:39 Laboratory: Laboratory Results - last 24 hr 07/11/21 23:39: WBC 9.5, RBC 4.58, Hgb 13.0, Hct 41.1, MCV 89.7, MCH 28.4, MCHC 31.6 L, RDW Std Deviation 48.2 H, RDW Coeff of Mikel 14.6, Plt Count 312, MPV 10.4, Immature Gran % (Auto) 0.300, Neut % (Auto) 58.6, Lymph % (Auto) 30.3, [place] % (Auto) 7.9, Eos % (Auto) 2.3, Baso % (Auto) 0.6, Absolute Neuts (auto) 5.6, Absolute Lymphs (auto) 2.88, Nucleated RBC % 0 07/11/21 23:39: Sodium 139, Potassium 4.5, Chloride 109 H, Carbon Dioxide 25.0, Anion Gap 5, BUN 18, Creatinine 0.97, Estim Creat Clear Calc 42.07, Est GFR (MDRD) Af Amer 73, Est GFR (MDRD) Non-Af 60, BUN/Creatinine Ratio 18.6, Glucose 99, Calcium 8.5 Radiography Diagnostic Testing: Radiology Impression Lumbar Spine X-Ray 07/11/21 23:19 IMPRESSION: Degenerative changes but no acute or healing fracture or malalignment. Electronically Signed: Suresh Colvin MD at 0:07 EST , D/C Instructions Discharge Diet: No restrictions Weight Bearing Status: Full weight bearing Meaningful Use Info Meaningful Use Diagnoses (Choose all that apply): None applicable Discharge Plan Admission Admit Date/Time: 07/11/21 23:45 Primary Reason for Your Visit: radicular back pain Attending Provider: Elliott Magana Primary Care Provider: Lobo Newsome Instructions Patient Instructions: ED Back Sprain/Strain Additional Instructions / Restrictions: do not take Ibuprofen or Alleve when on Prednisone Discharge Orders/Prescriptions Prescriptions: New cyclobenzaprine 10 mg tablet 10 mg PO TID PRN (Reason: muscle spasm) Qty: 20 RF: 0 hydrocodone-acetaminophen 5-325 mg tablet 1 - 2 tab PO Q6H PRN (Reason: pain, severe) 7 Days Qty: 30 RF: 0 prednisone 10 mg tablet 20 mg PO BID Qty: 28 RF: 0 gabapentin 100 mg capsule 100 mg PO TID Qty: 90 RF: 0 Continued levothyroxine [Synthroid] 100 MCG tablet 100 mcg PO DAILY RF: 0 hydroxychloroquine [Plaquenil] 200 MG tablet 200 mg PO DAILY RF: 0 duloxetine 60 MG capsule 120 mg PO DAILY RF: 0 mirtazapine QHS RF: 0 gabapentin 300 mg PO/SL TID RF: 0 Referrals / Follow Up: Greg Hooker MD [STAFF PHYSICIAN] - See Referral Note (call for follow up appointment) Lobo Newsome [Primary Care Provider] - Disposition Disposition (needs filled in before D/C Order can be placed): Home, Self Care Charges/Coding Visit Charges Inpatient E&M: 86648 Disch Hosp
== END 2021-07-12 16:16 | disposition home or self-care (01) ==
LOC: ED 23:46 → PCU 23:56
PROVIDERS: Admitting Provider Hospitalist; Emergency Provider Student in an Organized Health Care Education/Training Program; Visit Provider Internal Medicine
DX: M47.26 Other spondylosis with radiculopathy, lumbar region (principal); F32.A Depression, unspecified; E03.9 Hypothyroidism, unspecified; Z79.899 Other long term (current) drug therapy; Z79.890 Hormone replacement therapy; M79.7 Fibromyalgia
CPT/HCPCS: 72100; 80048; 85025; 96372; 96374; 96375; 97162; 97166; 99218; 99284; A4216; G0378; J2405

== ENCOUNTER 2021-11-28 09:36 | Day surgery (SDC) | payer MEDICARE, SELFPAY ==
[2021-11-28] VITALS (7 sets, daily range): BP systolic 141–182; BP diastolic 52–70; PULSE 58–69; RESP 16; TEMP 36.6–37.3; O2SAT 96–97; BMI 41.5
[2021-11-28] MEDS: Lactated Ringers 1,000 ML 15 ML IV (10:55)
--- NOTE | 2021-11-28 10:55 | RAD_ITS ---
PROCEDURE: Spinal cord stimulator placement DATE OF EXAMINATION: 11/28/2021 INDICATION: Female, 71 years old. Spinal cord stimulator placement. FLUOROSCOPY TIME (if supplied): 3 minutes 57 seconds. 11 fluoroscopic spot images submitted for interpretation. FINDINGS/ RAD/Lumbar Spine 2 or 3 Views IMPRESSION: Assessment limited by fluoroscopic technique and limited views submitted. Needle entry into the thecal sac is seen in the lumbar spine. A spinal cord stimulator device is advanced terminating in the mid thoracic spine. Please see intraoperative findings for further details. Electronically Signed: William Mazariegos, at 16:06 EDT ,
[2021-11-28] MEDS: Cefazolin 2 GM in 0.9% Normal Saline 100 ML IV (11:23)
[2021-11-28] MEDS: Bacitracin 500 UNITS/GM PACKET (11:49)
[2021-11-28] MEDS: Bupivacaine Mpf 0.5% 30 ML VIAL (12:00)
[2021-11-28] MEDS: Lidocaine 2% (20 ml mdv) 20 ML Vial (12:00)
--- NOTE | 2021-11-28 13:28 | SUR.PHASEI ---
C/O LEFT FOOT PAIN ON ANTERIOR SURFACE, HURTS WORSE WHEN STRETCHING FOOT BY POINTING TOES. HAS FULL ROM. MILD REDNESS NOTED ALONG ANTERIOR MEDIAL WHICH BLANCHES. DR RODRIGEZ EVALUATED. DENIES ANY BACK PAIN. PATIENT STATES SHE DOES NOT LAY PRONE AT HOME.
--- NOTE | 2021-11-28 15:50 | OP.PCM_ITS ---
Report of Operation Date of Procedure: 11/28/21 Description of Surgical Findings:: Pre-Operative Diagnosis: Lumbosacral radiculopathy, lumbosacral degenerative disc disease, lumbosacral spinal stenosis, lumbar postlaminectomy syndrome Post-Operative Diagnosis: Lumbosacral radiculopathy, lumbosacral degenerative disc disease, lumbosacral spinal stenosis, postlaminectomy syndrome of the lumbar spine Surgery/Procedure Performed:: 1.? Spinal cord stimulator thoracolumbar leads placement x2 #2 spinal cord stimulator Medtronic intellus adaptive stim generator placement #3 spinal cord stimulator generator pocket creation at the right gluteal region #4 spinal cord stimulator complex programming, 5-intraoperative fluoroscopic interpretation ANESTHESIA: MAC COMPLICATIONS: None BLOOD LOSS: Minimal Implanted device: Spinal cord stimulator lead [id number] lot number [id number], lead #2? [id number] lot number [id number] Medtronic spinal cord stimulator generator intellus serial number [id number] PROCEDURE IN DETAIL: History and physical of today was reviewed. Risks and benefits of the procedure were explained. The patient understood, agreed to the procedure, informed consent was obtained. IV inserted per routine protocol. The patient was taken to the operating room, placed in the prone position with a pillow positioned underneath the abdomen. A 2 gm of Ancef IV piggyback was infused per anesthesia prior to incision. The lower back and left gluteal area was prepped and draped in a sterile fashion using iodine x3 Ioban was placed.? The C-arm was brought in position for AP view at the T12-L2 vertebral bodies under direct visualization fluoroscopy on a true AP view the T12-L2 interlaminar space was identified skin and subcutaneous tissue and size approximately 10 cc of a mix of 2% lidocaine and 0.25% Marcaine using a 25-gauge regular needle followed by a 25-gauge 3-1/2 inch spinal needle towards the interlaminar space at T12-L1 from the left paramedian approach, the skin and subcutaneous tissue were then anesthetized and using an 11-gauge blade was then taken down to the skin and subcutaneous tissue using a 14-gauge 3 1/2 inch Touhy needle provided by the [employer] kit the needle was passed through the skin towards the interlaminar space at T12-L1 and a paramedian approach the needle was then advanced under direct visualization fluoroscopy towards the interlaminar space at T12-L1 [id number] technique was then carried to air towards the interlaminar space at T12-L1 once the tip of the needle was in the epidural space and loss of resistance was encountered to air and after confirmation of AP as well as oblique view of the spinal cord stimulator lead was then advanced under direct visualization fluoroscopy to be at the tip of the lead at tip of T8 and the bottom of the lead around mid T10 after confirmation of AP as well as lateral view to confirm correct placement of the lead in the posterior compartment of the epidural space the previous procedure was then repeated to a level? at T12-L1 interlaminar space on the left paramedian approach, the needle was then redirected after repeated confirmation with [id number] technique and confirmation on AP as well as lateral view , the second lead was then inserted under direct visualization with fluoroscopy to be at the tip T8 and mid T10 area to the right of the previously inserted lead, the leads were were then connected to the external neurostimulator and patient was then awakened to confirm satisfactory coverage of the painful area once satisfactory coverage was then achieved the stylette of each needle was then removed and the skin and subcutaneous tissue on to the left of the paramedian needles was then taken anesthetized with a total of 10 cc of the previous mixture of 0.25% Marcaine and 2% lidocaine using a 25- gauge regular needle the incision was then taken down through the skin and subcutaneous tissue towards the fascia making sure hemostasis was then maintained via cautery, the spinal cord stimulator leads were then passed through the above incision and secured using the injex anchor and sutured down with a 2-0 silk to the fascia at that level the spinal cord stimulator leads were then tunneled via a tunneler provided by the [employer] kit towards the previously incised spinal cord stimulator battery at the right gluteal region skin and subcutaneous tissue were anesthetized with approximately 10 cc of a mix of 2% lidocaine and 0.25% Marcaine using a 25 gauge regular needle, skin and subcutaneous tissue was then taken down with the 11-gauge blade hemostasis was maintained with Bovie and direct pressure the incision was then taken down to the fascia and the battery was then secured with the 2-0 silk sutures that were the spinal cord stimulator leads the upper lead was then marked the new until spinal cord stimulator battery was then provided Via [employer] kit the battery was then reattached of the spinal cord stimulator make ensure that the top lead is attached to the top position from 0-7 electrodes and the bottom from 8-15 electrodes once impedance was then checked to be in the proper average number the intellus battery was then inserted into the pocket and impedance was then checked again the pocket was then inspected to confirm hemostasis in place, the intellus battery was then protected with a tyrx antibacterial? pouch and then secured to the fascia using a 2-0 silk to the upper eyes of the battery confirming an upward posterior facing writing of the intellus facing posterior,? once complete confirmation was obtained, the battery was then placed in the position and the the mid paramedians and the gluteal incisions were then closed primarily through a 3-0 Vicryl in a running fashion followed by a 4-0 Monocryl to the skin, hemostasis was maintained during the procedure via Bovie as well as pressure, the skin was then covered with a Steri-Strips and bacitracin and a sterile fashion patient was then returned into the supine position in a stable condition and returned to recovery in a stable condition, patient experienced no signs or symptoms of intrathecal or intravascular injection patient experienced no paresthesia the procedure was completed without any apparent difficulty or any complication the patient appeared to tolerate the procedure well, motor as well as sensory function was unchanged from prior to the procedure ESTIMATED BLOOD LOSS: Minimal less than 25 mL ASSESSMENT AND PLAN: This is a 71-year-old female with lumbosacral radiculopathy, lumbosacral degenerative disc disease and lumbosacral spinal stenosis, postlaminectomy syndrome of the lumbar spine status post 1.? Spinal cord stimulator thoracolumbar leads placement x2 #2 spinal cord stimulator Medtronic intellus generator placement #3 spinal cord stimulator generator pocket creation at the right gluteal region #4 spinal cord stimulator complex programming, 5-intraoper ative fluoroscopic interpretation patient will continue her current medications a prescription was provided to the patient? Keflex 500 mg 1 p.o. every 8 hours for 7 days,? postop instruction were given in writing to the patient? as well as verbally, patient will follow approximately 1 week for reevaluation. ?
== END 2021-11-28 14:31 | disposition home or self-care (01) ==
LOC: SDC 09:44 → AC 09:44
PROVIDERS: Referring Provider Anesthesiology Pain Medicine; Visit Provider Anesthesiology Pain Medicine
PROC: (CPT 63685; principal; 2021-11-28 10:55)
DX: Z45.42 Encounter for adjustment and management of neurostimulator (principal); M06.9 Rheumatoid arthritis, unspecified; M51.17 Intervertebral disc disorders with radiculopathy, lumbosacral region; M96.1 Postlaminectomy syndrome, not elsewhere classified; M48.07 Spinal stenosis, lumbosacral region; Z79.899 Other long term (current) drug therapy; F41.9 Anxiety disorder, unspecified; F32.A Depression, unspecified; Z86.2 Personal history of diseases of the blood and blood-forming organs and certain disorders involving the immune mechanism; E07.9 Disorder of thyroid, unspecified; Z79.890 Hormone replacement therapy
CPT/HCPCS: 63685; 63650 ×2; 72100; 76000; C1778; C1820; J7120

== ENCOUNTER 2022-04-25 12:30 | Outpatient (RCR) | payer MEDICARE, SELFPAY ==
--- NOTE | 2022-01-23 07:48 | HP.PTEVAL_ITS ---
Patient's Visit Information ABEL MUÑOZ is a 71 year old F referred to Physical Therapy by Dr. Greg Hooker MD with a diagnosis of Lumbar DDD. Date of Evaluation: 01/23/22 Physical Therapist: Flory Cabrera DPT - Visit Plan Frequency: 2x /Week Duration: 4 Weeks Plan: Focus on core s/s. HEP Given IE: TA Contraction, Bridge, Hip add, Hip abduction with GTB - Subjective Patient reports that she has been having problems with her back for a long time and it really messed up her right leg. Last time she was here she was doing aquatic therapy and she got to the point that her right foot hurt too badly to continue. She got a spinal stimulator November 28, 2021 which has really helped. She is not pain free but she is 75% better. She has been using a cane for a long time and sometimes used a rollator but is not able to go without an AD. She is finding that a lot of the muscles she has not used are now waking up. Her goals are to strength her back and legs to get even better. The pain now comes and goes and depends a lot of physical activity. Eases: sitting Best: 0/10. Agg: to much movement Worst: 3/10. Describes the pain as a moderate pain in her foot. The pain is mostly in her right foot- the pain in her back is only there when she stands for more than 30 min. She is unsure if her foot pain as has been masked due to numbness- her dog ate her orthotics and she is planning to get them remade and hopes that that helps. She wants to do land therapy. She does not have any N/T at this point. No loss or change in bowel or bladder. She repots that she is not very active due to the pain but she would like to get back to moving more. Sleep: not disturbed. PMHx/Meds: No changes since 11/28/21. - Objective Posture: FH, RS can correct with verbal and tactile cues but does not maintain. Gait: antalgic- decreased stance on right LE with Trendelenburg gait pattern. HR/TR: able with UE A. SLS: weight shift but unsteady for SLS. ROM: WFL in all planes without pain. Sit to Stand: no UE A required. Observation: incision healed well without s/s of infection. Flex: HS: severe, Gastroc: moderate. Strength: Core: fair minus, Hip: 4/5 throughout (IR/ER tested at neutral), Knee: 4+/5 Ankle: 5/5 - Balance/Special Test Scores Oswestry Low Back Score: 17 - Goals Goal 1:: Patient will be I with HEP and progression Goal Time Frame: 4-6 Weeks Goal 2:: Patient will maintain proper posture t/o tx session to demo increased core s/s Goal Time Frame: 4-6 Weeks Goal 3:: Patient will report 80% improvement. Goal Time Frame: 4-6 Weeks - Rehabilitation Potential Physical Therapy Diagnosis: Patient presents with hypomobility- she has decreased LE and core strength/stabilization, flex, proprioception and muscular endurance leading to poor posture and decreased participation in ADL's. - Anticipated Interventions Patient/Client Instruction: Educate patient on: Benefits of Fitness Program Therapeutic Exercise to Include: Strength training, Endurance training, Balance training, Coordination, Agility training, Body mechanics, Postural training, Flexibilty training, Neuromotor development, Dynamic Lumbar Stabilization, Scapular Strength/Stabilization For the Purpose of:: To improve muscle performance and motor function TENS: No Cryotherapy (ice pack, ice massage): Yes Thermo therapy (hot pack): Yes Ultrasound (thermal/non thermal): No Thank you for the opportunity to evaluate your patient. For Medicare and Medicare HMO plans, please review the plan of care and approve it. It will need to be FAXED BACK to us at [phone] for Medicare purposes. For Medicare only, by signing this I certify the plan of care. Please let me know if there are questions or concerns regarding this plan of care. Physician Signature: Date:
--- NOTE | 2022-02-24 09:10 | HP.PTREVAL ---
Dr. Greg Hooker MD, It has been my pleasure to treat ABEL MUÑOZ over the last 11 visits for Lumbar DDD. Please see the progress note below for an update on the physical therapy plan of care! Subjective: Patient reports that she is getting stronger but she needs more balance and endurance. She walked [place] [employer] and she and her dog stopped at each bench- took about 5 min then could continue. SOB stopped her more than anything else. Very little pain in her back. Very hesitant on her right side. Objective/Function: Posture: FH, RS can correct with verbal and tactile cues but does not maintain. Gait: antalgic- decreased stance on right LE with mild Trendelenburg gait pattern. HR/TR: able with UE A. SLS: weight shift but unsteady for SLS. ROM: WFL in all planes without pain. Sit to Stand: no UE A required. Flex: HS: severe, Gastroc: moderate. Strength: Core: fair minus, Hip: 4+/5 throughout (IR/ER tested at neutral), Knee: 4+/5 Ankle: 5/5. Stairs: asc/desc 8 recip with 2 HR Plan Plan: Continue with current POC 2x a week for 4 weeks- proprioception and endurance. Balance/Gait/Functional tests - Balance/Special Test Scores Oswestry Low Back Score: 19 Goals Goal 1:: Patient will be I with HEP and progression Goal Time Frame: 4-6 Weeks Goal 2:: Patient will maintain proper posture t/o tx session to demo increased core s/s Goal Time Frame: 4-6 Weeks Goal 3:: Patient will report 80% improvement. Goal Time Frame: 4-6 Weeks Anticipated Interventions Patient/Client Instruction: Educate patient on: Benefits of Fitness Program Therapeutic Exercise to Include: Strength training, Endurance training, Balance training, Coordination, Agility training, Body mechanics, Postural training, Flexibilty training, Neuromotor development, Dynamic Lumbar Stabilization, Scapular Strength/Stabilization For the Purpose of:: To improve muscle performance and motor function TENS: No Cryotherapy (ice pack, ice massage): Yes Thermo therapy (hot pack): Yes Ultrasound (thermal/non thermal): No Please do not hesitate to contact me at [phone] by phone or if you have questions or concerns regarding this new plan of care! Sincerely, Flory Cabrera, DPT
--- NOTE | 2022-04-25 12:44 | HP.PTDCSUM_ITS ---
It has been my pleasure to treat ABEL MUÑOZ referred by Dr. Greg Hooker MD, with the diagnosis of Lumbar DDD for a total of 25 visit(s). Discharge Date: Please see the following information for a summary of their discharge status. Subjective: Patient reports that she feels a lot better about her situation. She feels more indep. She did have some back pain after cleaning- and then woke up the next day and felt okay. She has silver sneakers- and plans to continue her exercises with silver sneakers. There is no ADL's that she is unable to do. R LE Pain Intensity (Out of 10): 0 Left 5th metatarsal Pain Intensity (Out of 10): 0 General soreness Pain Intensity (Out of 10): 0 % Improvement: 80 Objective/Function: Posture: FH, RS can correct with verbal and tactile cues but does not maintain. Gait: slightly antalgic- mild Trendelenburg gait pattern. HR/TR: able with UE A. SLS: weight shift but unsteady for SLS. ROM: WFL in all planes without pain. Sit to Stand: no UE A required. Flex: HS: severe, Gastroc: moderate. Strength: Core: fair minus, Hip: 4+/5 throughout (IR/ER tested at neutral), Knee: 5/5 Ankle: 5/5 Goal 1:: Patient will be I with HEP and progression Goal 2:: Patient will maintain proper posture t/o tx session to demo increased core s/s Goal Progress: Progressing Goal 3:: Patient will report 80% improvement. Goal Progress: Goal Met Plan: 04/25/22: [facility]charge to [facility] If there are questions or concerns regarding this patient's physical therapy, please feel free to call me at [phone]. Thank you for the referral of this patient. Sincerely, Flory Cabrera, DPT Balance/Gait/Functional tests - Balance/Special Test Scores Oswestry Low Back Score: 19 Lower Extremity Functional Score: 55
== END 2022-04-25 13:54 | disposition home or self-care (01) ==
LOC: PT 12:30
PROVIDERS: Referring Provider Anesthesiology Pain Medicine; Visit Provider Anesthesiology Pain Medicine
DX: M51.37 Other intervertebral disc degeneration, lumbosacral region (principal); M96.1 Postlaminectomy syndrome, not elsewhere classified
CPT/HCPCS: 97110; 97162; 97164; 97530

== ENCOUNTER → 2022-05-09 | Outpatient (CLI) | payer MEDICARE, SELFPAY ==
[2022-05-09 13:28] LABS: Protein, Urine (Random) 44.8 mg/dL (<11.9); Protein:Creat Ratio 151 mg/g CRE (0-200)
== END | disposition home or self-care (01) ==
LOC: MTLAB 09:01
PROVIDERS: Referring Provider Internal Medicine Rheumatology; Visit Provider Internal Medicine Rheumatology
DX: R80.9 Proteinuria, unspecified (principal)
CPT/HCPCS: 82570; 84156

== ENCOUNTER → 2022-07-28 | Outpatient (CLI) | payer MEDICARE, SELFPAY ==
[2022-07-28 10:29] LABS: Vitamin B12 1307 pg/mL (211-911)
[2022-07-28 10:30] LABS: Erythrocyte Sedimentation Rate 24 mm/hr (0-30)
[2022-07-28 11:06] LABS: Free T3 2.1 pg/mL (2.18-3.98); LDH 221 U/L (84-246); Thyroid Stim Hormone (TSH) 1.34 uIU/mL (0.358-3.74)
[2022-07-31 15:07] LABS: Endomysial Antibody IgA Negative (Negative)
[2022-07-31 19:21] LABS: Immunoglobulin A 152 mg/dL (64-422); t-Transglutaminase IgA <2 U/mL (0-3)
[2022-08-01 14:08] LABS: Anti-Centromere B Ab <0.2 AI (0.0-0.9); Anti-Chromatin <0.2 AI (0.0-0.9); Anti-Jo <0.2 AI (0.0-0.9); Anti-Scleroderma-70 AB <0.2 AI (0.0-0.9); RNP Ab <0.2 AI (0.0-0.9); SJOGREN'S Anti-SS-A test < 0.2 AI (0.0-0.9); SJOGREN'S Anti-SS-B test < 0.2 AI (0.0-0.9); Smith Ab <0.2 AI (0.0-0.9)
[2022-08-01 19:51] LABS: Anti-dsDNA Ab 1 IU/mL (0-9); Vitamin D 1,25-Dihydroxy 47.1 pg/mL (24.8-81.5)
[2022-08-01 19:51] LABS: Pancreatic Elastase, Fecal 184 (>200)
[2022-08-04 01:07] LABS: Alpha-1-Globulins 0.3 g/dL (0.0-0.4); Alpha-2-Globulins 0.8 g/dL (0.4-1.0); Cytoplasmic Ab (C-ANCA) <1:20 titer (Neg:<1:20); Gamma Globulin 0.8 g/dL (0.4-1.8); Immunoglobulin A 150 mg/dL (64-422); Immunoglobulin G 716 mg/dL (586-1602); Immunoglobulin M 37 mg/dL (26-217)
[2022-08-04 19:58] LABS: Gastrin, Serum 52 pg/mL (0-115); Immunoglobulin E 21 IU/mL (6-495); Perinuclear Ab (P-ANCA) <1:20 titer (Neg:<1:20)
[2022-08-06 09:17] LABS: Calprotectin, Stool <16 ug/g (0-120); Fats, Neutral Increased (.); Fats, Total Increased (.)
== END | disposition home or self-care (01) ==
PROVIDERS: Referring Provider Internal Medicine Gastroenterology; Visit Provider Internal Medicine Gastroenterology
DX: R19.8 Other specified symptoms and signs involving the digestive system and abdomen (principal); R19.7 Diarrhea, unspecified; K58.9 Irritable bowel syndrome, unspecified
CPT/HCPCS: 36415; 82607; 82652; 82653; 82705; 82746; 82784; 82785; 82941; 83516; 83615; 83630; 83993; 84165; 84439; 84443; 84481; 85652; 86140; 86225; 86235; 86255; 86256; 86334; 87177; 87209; 87329; 87506

== ENCOUNTER → 2022-10-09 | Outpatient (CLI) | payer MEDICARE, SELFPAY ==
--- NOTE | 2022-10-09 07:55 | EKG12_ITS ---
Test Reason : PREOP Blood Pressure : / mmHG Vent. Rate : 057 BPM Atrial Rate : 057 BPM P-R Int : 140 ms QRS Dur : 084 ms QT Int : 436 ms P-R-T Axes : 063 -12 078 degrees QTc Int : 424 ms Sinus bradycardia Otherwise normal ECG Confirmed by [employer] CLEMENT, KELBY ([id number]), editor map ZHENG MORAN ([id number]) on 10/09/2022 11:19:11 AM Referred By: Delfino Carrillo Confirmed By:KELBY MARINELLI MD
[2022-10-09 08:32] LABS: Hematocrit 43.4 % (37-47); Hemoglobin 13.3 g/dL (12.0-15.0); Mean Corp Hgb Conc 30.6 g/dL (32-36); Mean Corpuscular Hgb 27.5 pg (27.0-32.0); Mean Corpuscular Volume 89.7 fL (81-99); Platelet Count 331 K/mm3 (150-450); RBC Distribution Width CV 14.9 % (11.6-14.6); Red Blood Count 4.84 M/mm3 (4.2-5.4); White Blood Count 9.2 K/mm3 (4.4-11.0)
[2022-10-09 08:55] LABS: Anion Gap 2 (5-15); BUN 15 mg/dL (7-18); Calcium,Total 9.2 mg/dL (8.5-10.1); Chloride 110 mmol/L (98-107); Creatinine, Serum 0.94 mg/dL (0.55-1.02); EST Glomerular Filtration Rate 62 mL/min (>60); Est Glom Filt Rate - Afr Amer 76 mL/min (>60); Glucose 90 mg/dL (74-106); Potassium 4.2 mmol/L (3.5-5.1); Sodium Level 140 mmol/L (136-145)
== END | disposition home or self-care (01) ==
LOC: PSN 07:54
PROVIDERS: PCP Family Medicine; Referring Provider Otolaryngology; Visit Provider Otolaryngology
DX: Z01.818 Encounter for other preprocedural examination (principal)
CPT/HCPCS: 36415; 80048; 85027; 93005

== ENCOUNTER → 2022-10-17 | Outpatient (CLI) | payer MEDICARE, SELFPAY ==
--- NOTE | 2022-10-16 13:00 | SEP_PTH ---
PATIENT: ABEL MUÑOZ LOC: [facility] U#:[id number] AGE/SX: 72/F ROOM: RE10/17/[address]: Dr. Delfino Carrillo MD : 1950 BED: DIS: 10/17/2022 SPEC #: [id number] RECD: 10/17/22 14:55 STATUS: MAMADOU CRISTAL #: [id number] ALFREDO: 10/16/22 13:[address]: Delfino Carrillo DEPT: SURGICAL PATHOLOGY RECD BY: Wilfrido Williamson ENTERED: 10/18/22 10:29 SP TYPE: SEPTUM OTHR DR: Dr. Lobo Newsome MD [facility] Tissues: Nasal septum, NOS Procedures: Decalcification bone/plaque Surgery Specimen Level III HEADER OPERATION: Septoplasty, submucous resection, inferior turbinates PRE-OP DIAGNOSIS: Nasal congestion, deviated nasal septum TISSUE SUBMITTED: Septum MICROSCOPIC DIAGNOSIS Septum: Fragments of bone and cartilage, clinically deviated nasal septum. KEAGAN:noé 10/20/2022 MICROSCOPIC DESCRIPTION Slides are reviewed. GROSS DESCRIPTION Received in fixative is one container labeled with the patient's name and designated septum. The specimen consists of multiple irregular fragments of cartilage and bone that in aggregate measure 4.0 x 3.0 x 0.3 cm. Nuclear Auxiliary Operator tissue is submitted in one cassette after decalcification. / KEAGAN:noé 10/18/2022 TC:5 CPT: 04433, 25404
== END | disposition home or self-care (01) ==
LOC: LABSPEC 15:24
PROVIDERS: PCP Family Medicine; Referring Provider Otolaryngology; Visit Provider Otolaryngology
DX: R09.81 Nasal congestion (principal); J34.2 Deviated nasal septum
CPT/HCPCS: 88304; 88311

== ENCOUNTER → 2023-03-05 | Outpatient (CLI) | payer MEDICARE, SELFPAY ==
--- NOTE | 2023-03-05 11:50 | NM_ITS ---
CLINICAL: 72-year-old female with history of abdominal bloating. SEMI-SOLID PHASE 99m Tc SULFUR COLLOID GASTRIC EMPTYING STUDY COMPARISON: None available FINDINGS: The patient was administered 1.0 mCi of 99m Tc sulfur colloid mixed with oatmeal and consumed per os. Image acquisitions in the anterior-posterior projections were obtained for 60 minutes. There is prompt visualization of the stomach. There is no gastroesophageal reflux identified. The T ? raw data emptying was calculated to be 23.96 minutes, (Normal: 12-56 minutes). NM/Gastric Emptying Study IMPRESSION: 1. NORMAL 99m Tc sulfur colloid semi-solid phase (oatmeal) gastric emptying imaging examination. A. There is normal and preserved semi-solid phase gastric emptying compared to normal controls. (Roro et al, J Nucl Med Tech 38: 186, 2010). Electronically Signed: Ralf Dupont DO at 22:04 EDT ,
== END | disposition home or self-care (01) ==
LOC: NM 11:49
PROVIDERS: PCP Family Medicine; Referring Provider Internal Medicine Gastroenterology; Visit Provider Internal Medicine Gastroenterology
DX: R10.9 Unspecified abdominal pain (principal)
CPT/HCPCS: 78264; A9500

== ENCOUNTER 2023-03-27 11:30 | Outpatient (RCR) | payer MEDICARE, SELFPAY ==
--- NOTE | 2023-02-15 09:39 | HP.OTEVAL ---
Patient's Visit Information Visit Information Visit Information: ABEL MUÑOZ is a 72 year old F, referred to Occupational Therapy by Dr. Zuri Sandhu MD, with a diagnosis of lateral epicondylitis. Date of Evaluation: 02/14/23 Occupational Therapist: Kathryn Kilgore, CISCOR/[place], CHT Subjective Subjective: This 72 year old female arrives with a dx of lateral epicondylitis. Stats she has struggled with dx for years. Pt reports ~last months symptoms getting worse. Pt reports Degenerative connective tissue disorder and arthritis OA. Pt reports she sleeps curled up, but same symptoms in both arms - gets better Pt reports tightness in L forearm it hurts. Pt reports difficulty folding clothes, better on higher surface Pt reports digging raking in yard increases pain Pt reports feeding dog Pt had Carpal tunnel, pt does not do repetitive things. Pt reports not using heat or ice at this point. Pt has bilateral carpal tunnel braces. Pt had recent sx on base of left IF to have excision of a mass ( about 7 days) has bandage on L shields base of IF - no precautions next week has a follow up- may take stitches out then. Pt uses adaptive techniques such as dycem when opening jars. Pt reports difficulty lifting with milk jugs - unable to peel up sealer - uses pliers Pt reports received injection in the past for lateral epicondylitis - lasts for quite a while Pt works out here at [employer]. Pt would like to return to her PLOF and would like to know what she can do to allow for her elbow to heal. ADLs Comments: Difficulty doing hear, working in yard - tolerates ~10 min at a time then needs to stretch out Getting hose out is a challenged - did buy a furniture sprayer one and that helps Pt is able to lift bigger bags (dog food) Pain L lateral epicondyle: Current Pain Intensity: 0 Pain Intensity Range: 0 and 5 ROM Elbow: right 5/145 left 4/150 Forearm: right 65 sup pron 90 left 70 sup cm 90* Wrist: right 45/55 left 55/80 Strength Shoulder: right 5/5 left 5/5 Elbow: right 5/5 left 5/5 Newscast Director: right at side50# outstretched arm 60#; left at side34# outstretched arm 39# Lateral Pinch: right 10# left 11# Tripod Pinch: right 12# left 10# Sensation Sensation Comments: denies Special Tests Lat Epiconylitis - as named: positive Quick DASH-Disab of Arm,Shoulder& Hand Quick DASH Score: 40.9075 Goals Goal:: Pt will improve LUE web offset press feeder strength to 50# or greater to perform ADL/IADL tasks by discharge. Goal:: Pt will report 0/10 pain while perform tasks by discharge Goal:: Pt will demonstrate understanding joint protection and adaptive equipment by utilizing proper form with gym equipment and adapting techniques for ADL/IADL tasks to decrease joint stress while performing ADL/IADL tasks by d/c. Goal:: Pt to demo overall increased indep in ADL/IADL tasks by decreased total DASH score by 10 points by discharge. Goal:: pt will demo understanding of brace use ( counter force and wrist cock up ) to allow for healing and decrease stress on extensor mech. by end of 2nd session. Rehabilitation General Assessment: Pt seen for OT eval for lateral epicondylitis. Pt demonstrates decreased web offset press feeder strength in LUE and increased ROM in elbow and wrist compared to right side. with palpation therapist was able to trigger pain at Left Lat. epi region consistent with symptoms of Lat. epi. These symptoms make it difficulty to perform desired ADL/IADL tasks. Pt will benefit from 1x week for 4 weeks for increased knowledge regarding joint protection, safe strengthening, and decreasing pain. Therapist ed in joint protection, OT POC, resting arm, and utilizing wrist splint and arm band to decrease pain. pt demo understanding and agrees to POC. Therapy session was directly supervised and doc. approved by Kathryn Kilgore OTR/K[place]ton,CHT. Rehabilitation Potential: Excellent Anticipated Interventions Anticipated Interventions: Strengthening, Triggerpoint Release, Modalities, Joint Protection/Energy Conservation, Ergonomic Education, Education re Diagnosis and Home Program Visit Plan Frequency: 1x/Week Duration: 4 Weeks General Plan: Decreasing pain Check/ed on ergonomics with gym equipment ed. pt on lateral epi precautions TEXT: Thank you for the opportunity to evaluate your patient. For Medicare and Medicare HMO plans, please review the plan of care and approve it. It will need to be FAXED BACK to us at [phone] for Medicare purposes. Please let me know if there are questions or concerns regarding this plan of care. Physician Signature: Date:
== END 2023-03-27 19:00 | disposition home or self-care (01) ==
LOC: OT 11:30
PROVIDERS: PCP Family Medicine; Referring Provider Orthopaedic Surgery Hand Surgery; Visit Provider Orthopaedic Surgery Hand Surgery
DX: M77.12 Lateral epicondylitis, left elbow (principal)
CPT/HCPCS: 97035; 97110; 97140; 97166; 97530

== ENCOUNTER 2023-12-21 07:30 | Outpatient (RCR) | payer MEDICARE, SELFPAY ==
--- NOTE | 2023-08-24 16:30 | HP.PTEVAL_ITS ---
Patient's Visit Information Visit Information Visit Information: ABEL MUÑOZ is a 73 year old F referred to Physical Therapy by TAYE PAEZ with a diagnosis of GAIT INSTABILITY ,ACQUIRED PES PLANUS. Date of Evaluation: 08/24/23 Physical Therapist: Feliciano Taylor, PT, Cert MDT, OCS Visit Plan Frequency: 2x /Week Duration: 4 Weeks Plan: *TRY TO AVOID RIGHT ANKLE RECONSTRUCTION SURGERY* PT INTERVENTIONS PROGRESSIVE BALANCE PROGRAM ,HIP STRENGTH (GLUT MEDIUS) , ANKLE STRENGTHENING ( FOOT INTRINSIC) AND FUNCTIONAL STRENGTHENING Subjective Subjective: This 73 y/o female presents to physical therapy with gait instability and posterior tibial insufficiency. Patient has h/o very pes plus which has acquired. Patient has h/o low back pain many years and had injection epidural didn't help thus had pain stimulator. Patient was scheduled for reconstruction surgery right ankle last year. Seen varnish melter helper different . Patient had x-rays. Tried injections helped but arch conts to hurt. Patient as no falls. Patient has difficulty on uneven surfaces. Patient has some difficulty with some ADLS . Doesn't use assisted device. Denies paresthesia/tingling . Sleeping good at night. Patient lives 1 1/2 story with one step. Bath/tub seat with grab bars. Patient has pain with extended walking pain in arch. Patient has bilateral TKA ,THR and lumbar laminectomy. Patient has orthotics ,shoes SOCAIL: VOCATION: retired Pain Right Foot: Pain Intensity (Out of 10): 6 Pain Intensity Range: 10 Objective Objective: POSTURE: (FRONTAL PLANE MECHANICS) pes planus with mod calcaneal valgus NEURO: denies paresthesia/tingling PALAPTION: unremarkable SLS: unable GAIT: ambulates with lateral sway glut medius weakness reciprocal pattern MMT: ankle stabilizers 4/5 ,except G-S 4-/5 ,quads/hams 4/5 ,( peak force) hip flexion right 19.7 ,left 18.8 ,hip abd R/L 0/5 STAIRS: one step at time AROM: ankle dorsiflexion 5 degrees ,inversion 35 degrees ,eversion 10 degrees ,plantar flexion 65 degrees gait Special Tests R Hip Scour: Negative R Hip JOHN - Intraarticular Pathology: Negative R Hip FADDIR - Labrum: Negative R Hip Trendelenberg - Glut Medius: Positive L Hip Scour: Negative L Hip Quadrant - Intraarticular Pathology: Negative L Hip JOHN - Intraarticular Pathology: Negative L Hip FADDIR - Labrum: Negative L Hip Trendelenberg - Glut Medius: Positive Balance/Special Test Scores Functional Gait Assessment Score: 11 % Disability: 63.3400 CATSIB Score (Max score 120 seconds): 55 Lower Extremity Functional Score: 31 Goals Goal 1:: Patient to be I with HEP with strengthening and balance Goal Time Frame: 4-6 Weeks Goal 2:: Patient to improve peak force hip flexion/abduction by 10 # force to improve gait. Goal Time Frame: 4-6 Weeks Goal 3:: Patient to improve CATSIB by 5-10 points to improve balance. Goal Time Frame: 4-6 Weeks Goal 4:: Patient to improve functional gait assessment score by 5 points to improve safety and balance. Goal Time Frame: 4-6 Weeks Goal 5:: Patient to improve LFES score by 5 points to improve QOL and balance. Goal Time Frame: 4-6 Weeks Rehabilitation Potential Physical Therapy Diagnosis: This patient has gait difficulty with weakness in bilateral hips along with posterior tibial insufficiency causing flat feet which is chronic causing arch pain contributing to Rehabilitation Potential: Good Anticipated Interventions Patient/Client Instruction: Educate patient on: Condition and Plan of Care For the Purpose of:: To improve muscle performance and motor function, To increase tolerance to activity/condition/position, To improve ability of physical actions for home/community/work/leisure, To improve health of tissue, To decrease soft tissue restriction, To increase flexibility/ROM, To improve endurance, To improve balance and To improve tolerance to ADL's Therapeutic Exercise to Include: Strength training, Balance training and Active ROM Comment: ANKLE AND HIP For the Purpose of:: To decrease pain, To improve muscle performance and motor function, To improve ability to perform ADL's, To increase tolerance to activity/condition/position, To improve ability of physical actions for home/community/work/leisure, To improve health of tissue, To decrease soft tissue restriction, To increase flexibility/ROM and To improve balance Text: Thank you for the opportunity to evaluate your patient. For Medicare and Medicare HMO plans, please review the plan of care and approve it. It will need to be FAXED BACK to us at [phone] for Medicare purposes. For Medicare only, by signing this I certify the plan of care. Please let me know if there are questions or concerns regarding this plan of care. Physician Jerry may: Date:
--- NOTE | 2023-09-12 11:21 | HP.PTREVAL ---
Re-Evaluation Intro: TAYE PAEZ, It has been my pleasure to treat ABEL MUÑOZ over the last 5 visits for GAIT INSTABILITY ,ACQUIRED PES PLANUS. Please see the progress note below for an update on the physical therapy plan of care! Subjective Subjective: Patient reports she used KT tape on her R foot to see if it helps with the pain she is having along the bottom of her foot Objective Objective/Function: Did well with progression of glute med exercises with fatigue t/o. Patient continues to ambulate with trendelenburg gait, states she thinks it's because her R ankle is hurting Plan Plan Plan: *TRY TO AVOID RIGHT ANKLE RECONSTRUCTION SURGERY* PT INTERVENTIONS PROGRESSIVE BALANCE PROGRAM ,HIP STRENGTH (GLUT MEDIUS) , ANKLE STRENGTHENING ( FOOT INTRINSIC) AND FUNCTIONAL STRENGTHENING Balance/Gait/Functional tests Balance/Special Test Scores Functional Gait Assessment Score: 11 % Disability: 63.3400 CATSIB Score (Max score 120 seconds): 55 Lower Extremity Functional Score: 31 Goals Goals Goal 1:: Patient to be I with HEP with strengthening and balance Goal Time Frame: 4-6 Weeks Goal 2:: Patient to improve peak force hip flexion/abduction by 10 # force to improve gait. Goal Time Frame: 4-6 Weeks Goal 3:: Patient to improve CATSIB by 5-10 points to improve balance. Goal Time Frame: 4-6 Weeks Goal 4:: Patient to improve functional gait assessment score by 5 points to improve safety and balance. Goal Time Frame: 4-6 Weeks Goal 5:: Patient to improve LFES score by 5 points to improve QOL and balance. Goal Time Frame: 4-6 Weeks Anticipated Interventions Anticipated Interventions Patient/Client Instruction: Educate patient on: Condition and Plan of Care For the Purpose of:: To improve muscle performance and motor function, To increase tolerance to activity/condition/position, To improve ability of physical actions for home/community/work/leisure, To improve health of tissue, To decrease soft tissue restriction, To increase flexibility/ROM, To improve endurance, To improve balance and To improve tolerance to ADL's Therapeutic Exercise to Include: Strength training, Balance training and Active ROM Comment: ANKLE AND HIP For the Purpose of:: To decrease pain, To improve muscle performance and motor function, To improve ability to perform ADL's, To increase tolerance to activity/condition/position, To improve ability of physical actions for home/community/work/leisure, To improve health of tissue, To decrease soft tissue restriction, To increase flexibility/ROM and To improve balance Re-Evaluation Ending Re-evaluation ending: Please do not hesitate to contact me at [phone] by phone or if you have questions or concerns regarding this new plan of care! Sincerely, Feliciano Taylor, PT, Cert MDT, OCS
--- NOTE | 2023-09-19 09:56 | HP.PTREVAL_ITS ---
Re-Evaluation Intro: TAYE PAZE, It has been my pleasure to treat ABEL MUÑOZ over the last 7 visits for GAIT INSTABILITY ,ACQUIRED PES PLANUS. Please see the progress note below for an update on the physical therapy plan of care! Subjective Subjective: Balance has improved Patient is walking better alot further See September 27 Objective Objective/Function: *Patient has progressed towards goals with improving hip strength but continues to benefit from skilled PT to address these goals and are appropriate* POSTURE: (FRONTAL PLANE MECHANICS) pes planus with mod calcaneal valgus NEURO: denies paresthesia/tingling PALAPTION: unremarkable SLS: unable GAIT: ambulates with lateral sway glut medius weakness reciprocal pattern MMT: ankle stabilizers 4/5 ,except G-S 4-/5 ,quads/hams 4/5 ,( peak force) hip flexion right 421 ,left 35.1 ,hip abd R 7.4,left 13.3 STAIRS: one step at time AROM: ankle dorsiflexion 5 degrees ,inversion 35 degrees ,eversion 10 degrees ,plantar flexion 65 degrees gait Special Tests R Hip Scour: Negative R Hip JOHN - Intraarticular Pathology: Negative R Hip FADDIR - Labrum: Negative R Hip Trendelenberg - Glut Medius: Positive L Hip Scour: Negative L Hip Quadrant - Intraarticular Pathology: Negative L Hip JOHN - Intraarticular Pathology: Negative L Hip FADDIR - Labrum: Negative L Hip Trendelenberg - Glut Medius: Positive Plan Plan Plan: *TRY TO AVOID RIGHT ANKLE RECONSTRUCTION SURGERY* PT INTERVENTIONS PROGRESSIVE BALANCE PROGRAM ,HIP STRENGTH (GLUT MEDIUS) , AN KLE STRENGTHENING ( FOOT INTRINSIC) AND FUNCTIONAL STRENGTHENING Balance/Gait/Functional tests Balance/Special Test Scores Functional Gait Assessment Score: 11 % Disability: 63.3400 CATSIB Score (Max score 120 seconds): 62 Lower Extremity Functional Score: 34 Goals Goals Goal 1:: Patient to be I with HEP with strengthening and balance Goal Time Frame: 4-6 Weeks Goal Progress: Goal Met Goal 2:: Patient to improve peak force hip flexion/abduction by 10 # force to improve gait.(New goal) Goal Time Frame: 4-6 Weeks Goal 3:: Patient to improve CATSIB by 5-10 points to improve balance. Goal Time Frame: 4-6 Weeks Goal Progress: Progressing Goal 4:: Patient to improve functional gait assessment score by 5 points to improve safety and balance. Goal Time Frame: 4-6 Weeks Goal Progress: Progressing Goal 5:: Patient to improve LFES score by 5 points to improve QOL and balance. Goal Time Frame: 4-6 Weeks Goal Progress: Progressing Anticipated Interventions Anticipated Interventions Patient/Client Instruction: Educate patient on: Condition and Plan of Care For the Purpose of:: To improve muscle performance and motor function, To increase tolerance to activity/condition/position, To improve ability of physical actions for home/community/work/leisure, To improve health of tissue, To decrease soft tissue restriction, To increase flexibility/ROM, To improve en durance, To improve balance and To improve tolerance to ADL's Therapeutic Exercise to Include: Strength training, Balance training and Active ROM Comment: ANKLE AND HIP For the Purpose of:: To decrease pain, To improve muscle performance and motor function, To improve ability to perform ADL's, To increase tolerance to activity /condition/position, To improve ability of physical actions for home/community/work/leisure, To improve health of tissue, To decrease soft tissue restriction, To increase flexibility/ROM and To improve balance Re-Evaluation Ending Re-evaluation ending: Please do not hesitate to contact me at [phone] by phone or if you have questions or concerns regarding this new plan of care! Sincerely, Feliciano Taylor PT, Cert MDT, OCS
--- NOTE | 2023-10-18 15:24 | HP.PTREVAL_ITS ---
Re-Evaluation Intro: TAYE PAEZ, It has been my pleasure to treat ABEL MUÑOZ over the last 15 visits for GAIT INSTABILITY ,ACQUIRED PES PLANUS. Please see the progress note below for an update on the physical therapy plan of care! Subjective Subjective: Feeling better getting stronger Objective Objective/Function: *Patient has progressed towards goals with improving hip strength SLS < 3 sec and balance but continues to benefit from skilled PT to address these goals and are appropriate and updated * POSTURE: (FRONTAL PLANE MECHANICS) pes planus with mod calcaneal valgus NEURO: denies paresthesia/tingling PALAPTION: unremarkable SLS: ,3 GAIT: ambulates with lateral sway glut medius weakness reciprocal pattern MMT: ankle stabilizers 4/5 ,except G-S 4-/5 ,quads/hams 4/5 ,( peak force) hip flexion right 4211 ,left 36.1 ,hip abd 24.3,left 17.4 STAIRS: one step at time AROM: ankle dorsiflexion 5 degrees ,inversion 35 degrees ,eversion 10 degrees ,plantar flexion 65 degrees Plan Plan Plan: *TRY TO AVOID RIGHT ANKLE RECONSTRUCTION SURGERY* PT INTERVENTIONS PROGRESSIVE BALANCE PROGRAM ,HIP STRENGTH (GLUT MEDIUS) , ANKLE STRENGTHENING ( FOOT INTRINSIC) AND FUNCTIONAL STRENGTHENING Balance/Gait/Functional tests Balance/Special Test Scores Functional Gait Assessment Score: 15 % Disability: 50.0000 CATSIB Score (Max score 120 seconds): 65 Lower Extremity Functional Score: 36 Goals Goals Goal 1:: Patient to be I with HEP with strengthening and balance Goal Time Frame: 4-6 Weeks Goal Progress: Goal Met Goal 2:: Patient to improve peak force hip flexion/abduction by 10 # force to improve gait.(New goal) Goal Time Frame: 4-6 Weeks Goal Progress: Progressing Goal 3:: Patient to improve CATSIB by 5-10 points to improve balance. Goal Time Frame: 4-6 Weeks Goal Progress: Progressing Goal 4:: Patient to improve functional gait assessment score by 5 points to im prove safety and balance. Goal Time Frame: 4-6 Weeks Goal Progress: Progressing Goal 5:: Patient to improve LFES score by 5 points to improve QOL and balance. Goal Time Frame: 4-6 Weeks Goal Progress: Progressing Anticipated Interventions Anticipated Interventions Patient/Client Instruction: Educate patient on: Condition and Plan of Care For the Purpose of:: To improve muscle performance and motor function, To increase tolerance to activity/condition/position, To improve ability of physical actions for home/community/work/leisure, To improve health of tissue, To decrease soft tissue restriction, To increase flexibility/ROM, To improve endurance, To improve balance and To improve tolerance to ADL's Therapeutic Exercise to Include: Strength training, Balance training and Active ROM Comment: ANKLE AND HIP For the Purpose of:: To decrease pain, To improve muscle performance and motor function, To improve ability to perform ADL's, To increase tolerance to activity/condition/position, To improve ability of physical actions for home/community/work/leisure, To improve health of tissue, To decrease soft tissue restriction, To increase flexibility/ROM and To improve balance Re-Evaluation Ending Re-evaluation ending: Please do not hesitate to contact me at [phone] by phone or if you have questions or concerns regarding this new plan of care! Sincerely, Feliciano Taylor, PT, Cert MDT, OCS
--- NOTE | 2023-11-20 07:28 | HP.PTREVAL ---
Re-Evaluation Intro: TAYE PAEZ, It has been my pleasure to treat ABEL MUÑOZ over the last 22 visits for GAIT INSTABILITY ,ACQUIRED PES PLANUS. Please see the progress note below for an update on the physical therapy plan of care! Subjective Subjective: Dong better ,plan to get right ankle brace and would like to coninue PT Objective Objective/Function: *Patient has progressed towards goals with improving function continues to benefit from skilled PT with gait and balance training with right ankle brace to address these goals and are appropriate* POSTURE: (FRONTAL PLANE MECHANICS) pes planus with mod calcaneal valgus NEURO: denies paresthesia/tingling PALAPTION: unremarkable SLS: ,3 GAIT: ambulates w reciprocal pattern MMT: ankle stabilizers 4/5 ,except G-S 4-/5 ,quads/hams 4/5 ,( peak force) hip flexion right 42.1 ,left 36.9 ,right hip abd 17.3,left 27.4 STAIRS: one step at time AROM: ankle dorsiflexion 5 degrees ,inversion 35 degrees ,eversion 10 degrees ,plantar flexion 65 degrees Plan Plan Plan: *TRYING TO AVOID RIGHT ANKLE RECONSTRUCTION SURGERY* PT INTERVENTIONS PROGRESSIVE BALANCE PROGRAM ,HIP STRENGTH (GLUT MEDIUS) , ANKLE STRENGTHENING ( FOOT INTRINSIC) AND FUNCTIONAL STRENGTHENING Balance/Gait/Functional tests Balance/Special Test Scores Functional Gait Assessment Score: 15 % Disability: 50.0000 CATSIB Score (Max score 120 seconds): 72 Lower Extremity Functional Score: 45 Goals Goals Goal 1:: Patient to be I with HEP with strengthening and balance Goal Time Frame: 4-6 Weeks Goal Progress: Goal Met Goal 2:: Patient to improve peak force hip flexion/abduction by 10 # force to improve gait.(New goal) Goal Time Frame: 4-6 Weeks Goal Progress: Progressing Goal 3:: Patient to improve CATSIB by 5-10 points to improve balance.( new goal) Goal Time Frame: 4-6 Weeks Goal Progress: Progressing Goal 4:: Patient to improve functional gait assessment score by 5 points to improve safety and balance. Goal Time Frame: 4-6 Weeks Goal Progress: Progressing Goal 5:: Patient to improve LFES score by 5 points to improve QOL and balance. ( new goal) Goal Time Frame: 4-6 Weeks Goal Progress: Progressing Anticipated Interventions Anticipated Interventions Patient/Client Instruction: Educate patient on: Condition and Plan of Care For the Purpose of:: To improve muscle performance and motor function, To increase tolerance to activity/condition/position, To improve ability of physical actions for home/community/work/leisure, To improve health of tissue, To decrease soft tissue restriction, To increase flexibility/ROM, To improve endurance, To improve balance and To improve tolerance to ADL's Therapeutic Exercise to Include: Strength training, Balance training and Active ROM Comment: ANKLE AND HIP For the Purpose of:: To decrease pain, To improve muscle performance and motor function, To improve ability to perform ADL's, To increase tolerance to activity/condition/position, To improve ability of physical actions for home/community/work/leisure, To improve health of tissue, To decrease soft tissue restriction, To increase flexibility/ROM and To improve balance Re-Evaluation Ending Re-evaluation ending: Please do not hesitate to contact me at [phone] by phone or if you have questions or concerns regarding this new plan of care! Sincerely, Feliciano Taylor, PT, Cert MDT, OCS
--- NOTE | 2023-12-21 08:00 | HP.PTDCSUM ---
Discharge Summary D/C summary: It has been my pleasure to treat ABEL MUÑOZ referred by TAYE PAEZ, with the diagnosis of GAIT INSTABILITY ,ACQUIRED PES PLANUS for a total of 30 visit(s). Discharge Date: 12/21/23 Please see the following information for a summary of their discharge status. 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 MECHANICS) pes planus with mod calcaneal valgus NEURO: denies paresthesia/tingling PALAPTION: unremarkable SLS: 5 SEC GAIT: ambulates w reciprocal pattern MMT: ankle stabilizers 4/5 ,except G-S 4-/5 ,quads/hams 4/5 ,( peak force) hip flexion right 42.1 ,left 36.9 ,right hip abd 19.3,left 29.4 STAIRS: one step at time AROM: ankle dorsiflexion 5 degrees ,inversion 35 degrees ,eversion 10 degrees ,plantar flexion 65 degrees Goals Goal 1:: Patient to be I with HEP with strengthening and balance Goal Progress: Goal Met Goal 2:: Patient to improve peak force hip flexion/abduction by 10 # force to improve gait.(New goal) Goal Progress: Goal Met Goal 3:: Patient to improve CATSIB by 5-10 points to improve balance.( new goal) Goal Progress: Goal Met Goal 4:: Patient to improve functional gait assessment score by 5 points to improve safety and balance. Goal Progress: Goal Met Goal 5:: Patient to improve LFES score by 5 points to improve QOL and balance. ( new goal) Goal Progress: Goal Met Plan Plan: D/C D/C Information Discharge Comments: HEP AND GYM d/c sentence: If there are questions or concerns regarding this patient's physical therapy, please feel free to call me at [phone]. Thank you for the referral of this patient. Sincerely, Feliciano Taylor, PT, Cert MDT, OCS Balance/Gait/Functional tests Balance/Special Test Scores Functional Gait Assessment Score: 20 % Disability: 33.3400 CATSIB Score (Max score 120 seconds): 90 Lower Extremity Functional Score: 51 Improvement % Improvement: 70
== END 2023-12-21 19:00 | disposition home or self-care (01) ==
LOC: PT 07:30
PROVIDERS: PCP Family Medicine
DX: R26.81 Unsteadiness on feet (principal); M21.40 Flat foot [pes planus] (acquired), unspecified foot
CPT/HCPCS: 97110; 97162; 97530

== ENCOUNTER 2024-01-08 11:05 | Day surgery (SDC) | payer MEDICARE, SELFPAY ==
[2024-01-08] VITALS (7 sets, daily range): BP systolic 124–172; BP diastolic 40–67; PULSE 52–61; RESP 16–18; TEMP 36.8–37.1; O2SAT 95–99; BMI 37.8
--- NOTE | 2024-01-08 11:35 | HP.PCM_ITS ---
History and Physical Date of Admission: 01/08/24 ABEL MUÑOZ, is a 73 F who presents to the office today for follow up. PMH non-healing surgical wound; osteoarthritis; DJD; anxiety/depression. PSH cholecystectomy. *BGI established 2 with referral from PCP. Alternating constipation with abdominal pain and urgent diarrhea with urgency related incontinence with intermittent episodes of emesis. Stool consistency varies by day (coffee noted as loose stool trigger). Symptoms are interfering with daily life.? Alternating constipation/diarrhea, biochemical workup and stool testing. Biochemical workup ESR, LDH, folate, TSH, Vit d1,25, T4, gastrin, GAME, DARIAN, ANCA, SURI comp, celiac, IBD profile without pertinent abnormality. CRP H6.50, Vit B12 H1307, T3 L2.1 ? Stool lactoferrin, calprotectin, EP, OP, giardia, C.difficile (formed) WNL.? Elastase L184, fecal fats increased. ? Start Creon Contact 08.25.22 to report that she is having frequent stools with smearing and mild incontinence; stools are not hard but of small amounts and frequent. Recommend Amitiza 8mcg QD. OV 6.01.31 she is no longer taking the amitiza. Creon use continues. She has not had any incontinence. However she continues to have constipation with frequent rectal pressure/need for BM. Loose stools have resolved. While taking amitiza she did note softer stools as opposed to harder stool. OV 02.23.23 she has been having loose stools with urgency incontinence and occasional emesis and lower abdominal discomfort occurring intermittently but with increased frequency without preceding factors; BM the others days vary between mush, hard stool and yellow/orange color. Continues with Creon; no longer taking amitiza. Start dicyclomine and cholestyramine ? GET 02.23.23 23.96 minutes (12-56) OV 3.7.24 Pt reports she has episodes of urgent loose stools that happen a few times a week. Sometimes coffee or salads trigger them. Bowels can also range from small balls to mushy. Continues to take cholestyramine and Creon. Only has abdominal discomfort when having urgency. OV 7.9.24 pt reports continued constipation, but is no longer having urgency with stools. Pt reports a bm every 3 days; denies blood in the stool. Pt reports difficulty swallowing dry foods such as bread and then will get hiccups. pt continues with cholestyramine, creon, and metamucil. ROS Const Constitutional: Positive for fatigue and weakness; No fever(s) or weight change ENT ENT: Positive for difficulty swallowing Cardio Cardiology: Positive for leg pain with exertion Gastro GI: Positive for abdominal pain, bloating, constipation, difficulty swallowing and excessive flatus; No belching, change in bowel habits, change in stool character, coffee ground emesis, cramping, diarrhea, heartburn, feeling full early, incontinent of stools, Vomiting blood/hematemesis, Blood in stool, loose stools, Black,tarry stools, nausea/dyspepsia, pain with swallowing, vomiting or other Musc Musculoskeletal: Positive for abnormal gait, joint pain, back pain, joint swelling, muscle cramps, muscle weakness, numbness, stiffness, tingling, Arthritis and leg pain with exertion Skin Skin: Positive for dry skin; No yellowing of the eye or itchy eyes Neuro Neurology: Positive for abnormal gait, weakness, numbness and tingling Psych Psychiatric: Positive for anxiety and Positive for depression Endo Endocrine: Positive for fatigue; No weight change Aller/Imm Allergy/Immunologic: No itchy eyes Vega/Lymp Hematologic/Lymphatic: No easy bleeding or easy bruising Exam Const General: cooperative and comfortable Nutritional Appearance: average body habitus and well nourished [facility] Head: normal to inspection Ears: hearing grossly normal bilaterally Nose: external nose normal Face and sinus: normal facial exam Mouth: oral mucosae normal Throat: posterior oropharynx normal Eyes General: appearance normal, both eyes and all related structures Neck Neck: normal visual inspection Chest Chest palpation & inspection: normal inspection of the chest and normal palpation of entire chest wall Resp Effort & Inspection: normal respiratory effort Auscultation: Bilateral: Clear to Auscultation Cardio Palpation: normal PMI Rate: regular rate Rhythm: regular rhythm GI Inspection: normal to inspection Auscultation: normal bowel sounds Percussion: normal to percussion Palpation: no hepatosplenomegaly Skin General: no rashes or lesions noted Neuro General: patient alert Extrem General: normal to inspection Psych Affect: normal affect Assessment and Plan Assessment and Plan (1) Constipation: Status: Chronic Plan: Her constipation is actually a lot better after taking pancreatic enzymes. I suggested that she go on a fiber supplement on a daily basis in order to thicken up her stools. However she still does have breakthrough diarrhea. She was given a diagnosis of IBS with diarrhea and all treatment that she has gotten over the years has not been completely successful. Since it has been a long time she had a colonoscopy we will repeat her colonoscopy and evaluate her small bowel and entire colon. (2) Small intestinal bacterial overgrowth (SIBO): Status: Chronic Plan: . Her labs are consistent with small intestinal bacterial overgrowth. She has high B12 levels to include you have higher B12 and folic acid levels. Her folic acid levels are normal which does correspond with a mildly low pancreatic elastase level. I recommended that she go back on pancreatic enzymes with each meal and we will recheck her fecal elastase in the future. Start cholestyramine and get gastric emptying study. She is also having intermittent bloating and worsening gastroesophageal reflux disease. Therefore we will perform an upper endoscopy prior to her getting a colonoscopy. (3) Irritable bowel syndrome with diarrhea: Status: Acute Plan: Albuterol scheduled dicyclomine 10 mg p.o. 3 times daily and she should start doxycycline 2 weeks after starting the dicyclomine. Medications: New sod sulf-pot chloride-mag sulf 1.479-0.188- 0.225 gram (Sutab) PO PER PKG DIR Day 1 Swallow 12 tablets with the first 16 ounces of water Day 2 Swallow 12 tablets with another 16 ounces of water 12 tabs PO PER PKG DIR 24 tabs 0RF I have examined the patient and the H&P has been reviewed. There are no clinical changes since date of exam.
[2024-01-08] MEDS: Lactated Ringers 1,000 ML 15 ML IV (11:46)
--- NOTE | 2024-01-08 12:03 | PCM.PRE.AN2 ---
ASA Classification* ASA Classification ASA Classification: 2 Assessment & Plan Anesthesia* Anesthesia Assessment Anesthesia Assessment: Discussed sedation and/or anesthesia options, risks, benefits, and alternatives with patient/parents/legal guardian/POA. Questions invited. The patient/parents/legal guardian/POA seems to understand and agrees to proceed with anesthesia plan. Reviewed the physical assessment, medical history, allergy history and patient home medications list prior to surgery/procedure/anesthetic and documented any changes. Performed airway and anesthesia risk assessments. Anesthesia Type Anesthesia Type: MAC History Source History Obtained from:: Patient and Chart Anesthesia Focused Assessment* Temperature: 98.6 F Pulse Rate: 61 Blood Pressure: 171/67 Respiratory Rate: 16 Pulse Ox: 95 Oxygen Delivery Method: Room Air Airway Assessment Mouth opens: >3 cm Mallampati Score: III Teeth Condition: Intact Neck Range of motion (ROM): Full ROM Pertinent Findings EKG Pertinent Findings:: October 09, 2022. Sinus bradycardia at 57 bpm. Focused Labs Anesthesia Preop lab: CBC WBC 9.2 K/mm3 (4.4-11.0) 10/09/22 08:11 RBC 4.84 M/mm3 (4.2-5.4) 10/09/22 08:11 Hgb 13.3 g/dL (12.0-15.0) 10/09/22 08:11 Hct 43.4 % (37-47) 10/09/22 08:11 Plt Count 331 K/mm3 (150-450) 10/09/22 08:11 CHEMISTRY Potassium 4.2 mmol/L (3.5-5.1) 10/09/22 08:11 Sodium 140 mmol/L (136-145) 10/09/22 08:11 Phosphorus 3.1 mg/dL (2.5-4.9) 04/05/13 10:50 BUN 15 mg/dL (7-18) 10/09/22 08:11 Creatinine 0.94 mg/dL (0.55-1.02) 10/09/22 08:11 Glucose 90 mg/dL (74-106) 10/09/22 08:11 TSH 1.34 uIU/mL (0.358-3.74) 07/28/22 08:53 COAG PT 14.7 SECONDS (11.7-14.9) 01/03/19 09:00 Pre-Assessment Diagnosis/Proposed Procedure Planned Operative Procedure(s): EGD/CSCOPE Anesthesia History 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 When Was Last Pacemaker Check QUESTION #4 FULL TEXT: You/Your Family Experience fever (hyperthermia) with Anesthesia Last Oral Intake Last Oral intake: Last Oral Intake NPO since 05:00 01/08/24 11:43 Meds taken in AM with sips of No 01/08/24 11:43 water? Meds patient instructed to take am of surgery PONV PONV - supervisor nut processing: PONV - supervisor nut processing Female Yes 01/04/24 13:33 HX of Motion Sickness Yes 01/04/24 13:33 HX of N/V After Surgery No 01/04/24 13:33 Non-Smoker Yes 01/04/24 13:33 Duration of Surgery greater No 01/04/24 13:33 than 60 minutes Number of Risk Factors 3 01/04/24 13:33 PONV Score Moderate Risk 01/04/24 13:33 Height & Weight Height & Weight: Anesthesia: Height & Weight Height 5 ft 3 in 01/08/24 11:43 Weight: 97 kg 01/08/24 11:43 Body Mass Index (BMI) 37.8 01/08/24 11:43 Respiratory Assessment Respiratory Assessment - supervisor nut processing: Respiratory Tract Infection Hx - supervisor nut processing Hx Respiratory Tract Infection No 01/04/24 13:33 STOP Sleep Apnea STOP Sleep Apnea - supervisor nut processing: STOP Sleep Apnea - supervisor nut processing Hx Hypertension No 01/04/24 13:33 Hx Sleep Apnea No 01/04/24 13:33 CPAP BIPAP Do you snore loudly (louder No 01/04/24 13:33 than talking or can be heard Do you often feel tired/ No 01/04/24 13:33 fatigued/ sleepy during daytime? Has anyone observed you stop No 01/04/24 13:33 breathing during sleep? STOP Results Negative 01/04/24 13:33 QUESTION #5 FULL TEXT : Do you snore loudly (louder than talking or can be heard through closed doors)? 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 Specify any problems Hx of Preganancy in last 3 No 01/04/24 13:33 Months Nurse Filling Out Transfusion DSCHRIBER 01/04/24 13:33 & Questions: Date: 01/04/24 01/04/24 13:33 Time: 13:35 01/04/24 13:33 Patient unable to answer at this time (ie. confused, unrespo /Reproduction History /Reproductive History - supervisor nut processing: /Reproductive Hx- supervisor nut processing Hx Now No 01/04/24 13:33 Gestational Age (in weeks): EDC: Hx Hx Para Hx Section SAB No 01/04/24 13:33 Active Medications Active Medications: Current Medications Generic Name Dose Route Start Last Admin Trade Name Freq PRN Reason Stop Dose Admin Lactated Ringer's 1,000 mls @ 15 mls/hr 01/08/24 11:30 01/08/24 11:46 IV 15 mls/hr .Q48H KASIA Administration PFSH Medical History Wears hearing aid Post-menopausal History of steroid therapy Walker as ambulation aid Arthritis Anemia Back pain Difficulty swallowing Diarrhea Wears glasses Depression Anxiety Thyroid disease Unspecified diffuse connective tissue disease Easy bruising History of IBS Non-smoker Shortness of breath on exertion History of echocardiogram Cardiac murmur Hip pain, left Home Medications ?Medication ?Instructions ?Recorded ?Last Taken ?Type duloxetine 60 mg capsule,delayed 60 mg PO QHS 07/29/18 Unknown History release hydroxychloroquine 200 mg tablet 200 mg PO QHS arthritis 07/29/18 Unknown History (Plaquenil) levothyroxine 100 mcg tablet 100 mcg PO DAILY 07/29/18 11/28/21 06:00 History (Synthroid) mirtazapine 15 mg PO/SL QHS 07/12/21 Unknown History buspirone 7.5 mg tablet 7.5 mg PO BID 11/28/21 11/28/21 06:00 History gabapentin 100 mg capsule 400 mg PO TID 11/28/21 11/28/21 06:00 History lamotrigine 100 mg tablet 100 mg PO DAILY 11/28/21 Unknown History [id number] See Rx Instructions PO .COMPLEX 08/27/23 Unknown Rx 36,000-114,000-180,000 unit #320 caps capsule,delay rel (Creon) dicyclomine 10 mg capsule 10 mg PO TID #90 caps 11/30/23 Unknown Rx cholestyramine (with sugar) 4 gram 4 g PO DAILY 12/18/23 Unknown History oral powder meloxicam 15 mg tablet 15 mg PO DAILY 12/18/23 Unknown History sodium sul 1.479 gram-potas ch 12 tab PO PER PKG DIR #24 tabs 12/18/23 Unknown Rx 0.188 gram-magnes sul 0.225 gram tablet (Sutab) brexpiprazole 0.5 mg tablet 0.5 mg PO DAILY 01/04/24 Unknown History (Rexulti) Allergy/AdvReac Type Severity Reaction Status Date / Time No Known Allergies Allergy Verified 01/08/24 11:42 Family History Mother Oat cell carcinoma of lung Surgical History Hx of surgical procedure History of esophagogastroduodenoscopy (EGD) Hx of colonoscopy Hx of thumb surgery History of carpal tunnel surgery of right wrist History of carpal tunnel surgery of left wrist History of cholecystectomy History of cataract extraction History of bunionectomy History of broken nose History of hip replacement History of laminectomy History of knee replacement Social History household members: none number of children: 2 current occupational status: retired Smoking Status: Never smoker Review of Systems (Anesthesia) ROS Narrative System reviewed and no additional complaints, except as documented.
--- NOTE | 2024-01-08 12:30 | IMM_PTH ---
PATIENT: ABEL MUÑOZ LOC: EN U#:[id number] AGE/SX: 73/F ROOM: RE01/08/[address]: Dr. Vladimir Becerra DO : 1950 BED: DIS: 01/08/2024 SPEC #: [id number] RECD: 01/09/24 08:17 STATUS: MAMADOU REQ #: [id number] ALFREDO: 01/08/24 12:[address]: Vladimir Becerra DEPT: IMMUNOHISTOCHEMISTRY RECD BY: Donnell David ENTERED: 01/09/24 08:18 SP TYPE: IMMUNO OTHR DR: Dr. Lobo Newsome MD Tissues: A - Gastric mucous membrane Procedures: H Pylori (initial) PHYSICIAN & INSTITUTION [place] [id number] SPECIMEN INFORMATION: Tissue Source: A- Gastric antrum Clinical Info: Constipation, SIBO, irritable bowel syndrome Specimen Number: [id number] CPT code: 12115 METHODOLOGY: Deparaffinized sections of prefer/formalin-fixed tissue or PAP/DQ stained slides are incubated with monoclonal/polyclonal antibodies/oligonucleotide probes. Localization is made via biotin free immunoperoxidase method. Appropriate controls are performed and reacted as expected. Results on target cell population are indicated in the following table: RESULTS: ANTIBODY / CLONE RESULT Block A H Pylori (polyclonal) negative These tests were developed and their performance characteristics determined by [facility]. They may not have been cleared or approved by the U.S. Food and Drug Administration. The FDA has determined that such clearance or approval is not necessary. The above immunohistochemical/dualISH markers are ordered and reviewed by the Pathologist. INTERPRETATION: A. Gastric antrum, biopsy: Negative for Helicobacter pylori organisms. KEAGAN/ 01/10/2024
--- NOTE | 2024-01-08 12:30 | EGD_PTH ---
PATIENT: ABEL MUÑOZ LOC: EN U#:[id number] AGE/SX: 73/F ROOM: RE01/08/[address]: Dr. Vladimir Becerra DO : 1950 BED: DIS: 01/08/2024 SPEC #: [id number] RECD: 01/08/24 18:27 STATUS: MAMADOU CRISTAL #: [id number] ALFREDO: 01/08/24 12:[address]: Vladimir Becerra DEPT: SURGICAL PATHOLOGY RECD BY: Puja Box ENTERED: 01/09/24 08:10 SP TYPE: EGD BIOPSY JUAN DR: Dr. Lobo Newsome MD Tissues: A - Gastric mucous membrane B - Esophagus, NOS C - Ascending colon D - COLON BIOPSY Procedures: Special Stain Group I Surgery Specimen Level IV Alcian Blue/PAS (control) HEADER OPERATION: Colonoscopy with polypectomy and biopsy, EGD PRE-OP DIAGNOSIS: Constipation, SIBO, irritable bowel syndrome TISSUE SUBMITTED: A- Gastric antrum, B- Distal esophagus, C- Ascending colon polyp cold snare, D- Random colon biopsy MICROSCOPIC DIAGNOSIS A. Gastric antrum, biopsy: Mild gastritis. See microscopic description and comment. B. Distal esophagus, biopsy: Fragments of gastroesophageal mucosa with moderate chronic inflammation. Intestinal metaplasia (goblet cell metaplasia) not identified. See comment. C. Ascending colon polyp, cold snare and polypectomy: Tubular adenoma. Fragments of fecal material. D. Colon, random biopsy: Fragments of colonic mucosa, no pathologic diagnosis. KEAGAN/ 01/10/2024 COMMENT A. The results of immunohistochemistry for Helicobacter pylori will be reported separately ([id number]). B. Alcian blue/PAS stain with matched control is used in the evaluation of the specimen. MICROSCOPIC DESCRIPTION Slides are reviewed. A. The specimen shows fragments of gastric mucosa with chronic inflammatory cell infiltrates in the lamina propria consisting of lymphocytes and plasma cells, consistent with mild chronic gastritis. GROSS DESCRIPTION A. Received in fixative is one container labeled with the patient's name and designated Gastric antrum. The specimen consists of two irregular fragments of light bowman soft tissue that in aggregate measure 0.5 x 0.3 x 0.1 cm. The specimen is totally submitted in one cassette. B. Received in fixative is one container labeled with the patient's name and designated Distal esophagus. The specimen consists of multiple irregular fragments of light bowman soft tissue that in aggregate measure 0.7 x 0.2 x 0.1 cm. The specimen is totally submitted in one cassette. C. Received in fixative is one container labeled with the patient's name and designated Ascending colon polyp. The specimen consists of multiple irregular fragments of light bowman soft tissue that in aggregate measure 0.3 x 0.2 x 0.1 cm. The specimen is totally submitted in one cassette. D. Received in fixative is one container labeled with the patient's name and designated Random colon biopsy. The specimen consists of multiple irregular fragments of light bowman soft tissue that in aggregate measure 1.0 x 0.5 x 0.1 cm. The specimen is totally submitted in one cassette. RENEE/ 01/09/2024 TC:1 CPT:14509a1,88739
--- NOTE | 2024-01-08 13:00 | PCM.POST.ANE ---
Anesthesia: Postop Eval I Current Vital Signs Temperature: 98.2 F Pulse Rate: 58 Blood Pressure: 124/40 Respiratory Rate: 16 Pulse Ox: 97 Oxygen Delivery Method: Room Air Assessment Airway patent: Yes Spontaneous unlabored respirations: Yes Mental status: Asleep nausea: No Vomiting: No Anesthesia Complication: No Fluid Hydration Crystalloid volume administer (ml): 800 Total IV fluid infused: 800 Progress Note Anesthesia document: Postop Eval 1 completed: Yes
--- NOTE | 2024-01-08 13:01 | OP.CCLET_ITS ---
01/08/2024 Lobo Newsome Re : Upper GI endoscopy procedure for Wilda Lyles Dear Jerod This procedure was performed on Monday, January 08, 2024. My impressions and recommendations are as follows: Impressions : - LA Grade B reflux esophagitis with no bleeding. Biopsied. - Erythematous mucosa in the gastric body, greater curvature and antrum. Biopsied. - Erythematous duodenopathy. Recommendations : - Discharge patient to home. - Resume previous diet. - Continue present medications. - Await pathology results. My findings are described in the full procedure note, which is enclosed. If I can be of further assistance, please feel free to contact me at . Sincerely, Vladimir Becerra, 01/08/2024 1:00:56 PM This report has been signed electronically.
--- NOTE | 2024-01-08 13:01 | OP.EGD_ITS ---
Patient Name: Wilda Lyles Procedure Date: 01/08/2024 12:20 PM Date of : 1950 Age: 73 Procedure: Upper GI endoscopy Indications: Epigastric abdominal pain, Functional Dyspepsia Providers: Vladimir Becerra DO Medicines: Monitored Anesthesia Care Patient Profile: This is a 73 year old female. Refer to note in patient chart for documentation of history and physical. Patient has symptoms of chronic abdominal cramping, chronic epigastric abdominal pain and chronic dysphagia. Complications: No immediate complications. Procedure: Pre-Anesthesia Assessment: - Prior to the procedure, a History and Physical was performed, and patient medications and allergies were reviewed. The patient is competent. The risks and benefits of the procedure and the sedation options and risks were discussed with the patient. All questions were answered and informed consent was obtained. Patient identification and proposed procedure were verified by the physician in the pre-procedure area. Mental Status Examination: alert and oriented. Airway Examination: normal oropharyngeal airway and neck mobility. Respiratory Examination: clear to auscultation. CV Examination: normal. Prophylactic Antibiotics: The patient does not require prophylactic antibiotics. Prior Anticoagulants: The patient has taken no anticoagulant or antiplatelet agents. ASA Grade Assessment: II - A patient with mild systemic disease. After reviewing the risks and benefits, the patient was deemed in satisfactory condition to undergo the procedure. The anesthesia plan was to use monitored anesthesia care (MAC). Immediately prior to administration of medications, the patient was re-assessed for adequacy to receive sedatives. The heart rate, respiratory rate, oxygen saturations, blood pressure, adequacy of pulmonary ventilation, and response to care were monitored throughout the procedure. The physical status of the patient was re-assessed after the procedure. After obtaining informed consent, the endoscope was passed under direct vision. Throughout the procedure, the patient's blood pressure, pulse, and oxygen saturations were monitored continuously. The pediatric colonoscope was introduced through the mouth, and advanced to the second part of duodenum. The upper GI endoscopy was accomplished without difficulty. The patient tolerated the procedure well. Scope In: 12:29:52 PM Scope Out: 12:33:00 PM Total Procedure Duration Time 0 hours 3 minutes 8 seconds Findings: LA Grade B (one or more mucosal breaks greater than 5 mm, not extending between the tops of two mucosal folds) esophagitis with no bleeding was found 39 to 40 cm from the incisors. Biopsies were taken with a cold forceps for histology. Verification of patient identification for the specimen was done. Estimated blood loss was minimal. Diffuse moderately erythematous mucosa without bleeding was found in the gastric body, on the greater curvature of the stomach and in the gastric antrum. Biopsies were taken with a cold forceps for histology. Verification of patient identification for the specimen was done. Estimated blood loss was minimal. Biopsies were taken with a cold forceps for Helicobacter pylori testing. Verification of patient identification for the specimen was done. Estimated blood loss was minimal. Diffuse mildly erythematous mucosa without active bleeding and with no stigmata of bleeding was found in the duodenal bulb, in the first portion of the duodenum and in the second portion of the duodenum. Impression: - LA Grade B reflux esophagitis with no bleeding. Biopsied. - Erythematous mucosa in the gastric body, greater curvature and antrum. Biopsied. - Erythematous duodenopathy. Recommendation: - Discharge patient to home. - Resume previous diet. - Continue present medications. - Await pathology results. Procedure Code(s): --- Professional --- 96828, Esophagogastroduodenoscopy, flexible, transoral; with biopsy, single or multiple CPT copyright 2021 [employer]. All rights reserved. The codes documented in this report are preliminary and upon workers' compensation mediator review may be revised to meet current compliance requirements. Vladimir Becerra DO 01/08/2024 1:00:56 PM This report has been signed electronically. Number of Addenda: 0 Note Initiated On: 01/08/2024 12:20 PM
--- NOTE | 2024-01-08 13:06 | OP.COLON_ITS ---
Patient Name: Wilda Lyles Procedure Date: 01/08/2024 12:33 PM Date of : 1950 Age: 73 Procedure: Colonoscopy Indications: Clinically significant diarrhea of unexplained origin Providers: Vladimir Becerra DO Medicines: Monitored Anesthesia Care Patient Profile: This is a 73 year old female. Refer to note in patient chart for documentation of history and physical. Patient has symptoms of chronic abdominal cramping, chronic epigastric abdominal pain and chronic dysphagia. Last Colonoscopy: several years ago. Complications: No immediate complications. Procedure: Pre-Anesthesia Assessment: - Prior to the procedure, a History and Physical was performed, and patient medications and allergies were reviewed. The patient is competent. The risks and benefits of the procedure and the sedation options and risks were discussed with the patient. All questions were answered and informed consent was obtained. Patient identification and proposed procedure were verified by the physician in the pre-procedure area. Mental Status Examination: alert and oriented. Airway Examination: normal oropharyngeal airway and neck mobility. Respiratory Examination: clear to auscultation. CV Examination: normal. Prophylactic Antibiotics: The patient does not require prophylactic antibiotics. Prior Anticoagulants: The patient has taken no anticoagulant or antiplatelet agents. ASA Grade Assessment: II - A patient with mild systemic disease. After reviewing the risks and benefits, the patient was deemed in satisfactory condition to undergo the procedure. The anesthesia plan was to use monitored anesthesia care (MAC). Immediately prior to administration of medications, the patient was re-assessed for adequacy to receive sedatives. The heart rate, respiratory rate, oxygen saturations, blood pressure, adequacy of pulmonary ventilation, and response to care were monitored throughout the procedure. The physical status of the patient was re-assessed after the procedure. After I obtained informed consent, the scope was passed under direct vision. Throughout the procedure, the patient's blood pressure, pulse, and oxygen saturations were monitored continuously. The pediatric colonoscope was introduced through the anus and advanced to the cecum, identified by appendiceal orifice and ileocecal valve. The colonoscopy was performed without difficulty. The patient tolerated the procedure well. The quality of the bowel preparation was adequate. The ileocecal valve, appendiceal orifice, and rectum were photographed. Scope In: 12:34:30 PM Scope Withdrawal Time 0 hours 10 minutes 33 seconds Scope Out: 12:50:38 PM Total Procedure Duration Time 0 hours 16 minutes 8 seconds Findings: The perianal exam findings include poor rectal tone. Multiple small and large-mouthed diverticula were found in the recto-sigmoid colon and sigmoid colon. An area of mildly congested mucosa was found in the rectum, in the sigmoid colon, in the descending colon and in the transverse colon. Biopsies were taken with a cold forceps for histology. Verification of patient identification for the specimen was done. Estimated blood loss was minimal. A 5 mm polyp was found in the ascending colon. The polyp was sessile. The polyp was removed with a cold snare. Resection and retrieval were complete. Verification of patient identification for the specimen was done. Estimated blood loss was minimal. Impression: - Poor rectal tone found on perianal exam. - Diverticulosis in the recto-sigmoid colon and in the sigmoid colon. - Congested mucosa in the rectum, in the sigmoid colon, in the descending colon and in the transverse colon. Biopsied. - One 5 mm polyp in the ascending colon, removed with a cold snare. Resected and retrieved. Recommendation: - Repeat colonoscopy in 5 years for surveillance. - Continue present medications. Procedure Code(s): --- Professional --- 15698, Colonoscopy, flexible; with removal of tumor(s), polyp(s), or other lesion(s) by snare technique 82283, 59, Colonoscopy, flexible; with biopsy, single or multiple CPT copyright 2021 [employer]. All rights reserved. The codes documented in this report are preliminary and upon optical systems engineer review may be revised to meet current compliance requirements. Vladimir Becerra DO 01/08/2024 1:06:01 PM This report has been signed electronically. Number of Addenda: 0 Note Initiated On: 01/08/2024 12:33 PM
--- NOTE | 2024-01-08 13:06 | OP.CCLET_ITS ---
01/08/2024 Lobo Newsome Re : Colonoscopy procedure for Wilda Gongana rosa Newsome This procedure was performed on Monday, January 08, 2024. My impressions and recommendations are as follows: Impressions : - Poor rectal tone found on perianal exam. - Diverticulosis in the recto-sigmoid colon and in the sigmoid colon. - Congested mucosa in the rectum, in the sigmoid colon, in the descending colon and in the transverse colon. Biopsied. - One 5 mm polyp in the ascending colon, removed with a cold snare. Resected and retrieved. Recommendations : - Repeat colonoscopy in 5 years for surveillance. - Continue present medications. My findings are described in the full procedure note, which is enclosed. If I can be of further assistance, please feel free to contact me at . Sincerely, Vladimir Becerra, 01/08/2024 1:06:01 PM This report has been signed electronically.
--- NOTE | 2024-01-08 13:15 | PCM.POSTANE2 ---
Anesthesia Postop Eval I Sum Postop Eval Completion status Anesthesia document: Postop Eval 1 completed: Yes Anesthesia Postop Eval I Summary Anesthesia Postop Eval I Summary: Anesthesia Postop Eval I: Assessment Summary Airway patent Yes 01/08/24 13:00 [email or web address] Spontaneous unlabored Yes 01/08/24 13:00 [email or web address] respirations Mental status Asleep 01/08/24 13:00 [email or web address] nausea No 01/08/24 13:00 [email or web address] Vomiting No 01/08/24 13:00 [email or web address] Anesthesia Postop Eval I: Fluid Summary Crystalloid volume administer 800 01/08/24 13:00 [email or web address] (ml) Colloids volume administered ( ml) Blood Product volume administered (ml) Total IV fluid infused 800 01/08/24 13:00 [email or web address] Anesthesia Postop Eval I: Summary Notes Anesthesia Complication No 01/08/24 13:00 [email or web address] Anesthesia Complication Comment: Post-operative progress note Anesthesia: Postop Eval II Evaluation Mental status: Awake and Calm Pain Level: 0 nausea: No Vomiting: No Complications Anesthesia Complication: No
== END 2024-01-08 13:40 | disposition home or self-care (01) ==
LOC: EN 11:10 → AC 11:30
PROVIDERS: PCP Family Medicine; Referring Provider Family Medicine; Visit Provider Internal Medicine Gastroenterology
PROC: 0DJD8ZZ Inspection of Lower Intestinal Tract, Via Natural or Artificial Opening Endoscopic (ICD-10-PCS; CPT 45378; principal; 2024-01-08 12:25)
DX: D12.2 Benign neoplasm of ascending colon (principal); K57.30 Diverticulosis of large intestine without perforation or abscess without bleeding; K21.00 Gastro-esophageal reflux disease with esophagitis, without bleeding; K63.89 Other specified diseases of intestine; K29.70 Gastritis, unspecified, without bleeding; F41.9 Anxiety disorder, unspecified; F32.A Depression, unspecified; E07.9 Disorder of thyroid, unspecified; Z79.899 Other long term (current) drug therapy
CPT/HCPCS: 45380; 45385; 43239; 88305; 88312; 88342; J7120; J2405

== ENCOUNTER → 2024-02-26 | Outpatient (CLI) | payer MEDICARE, SELFPAY ==
[2024-03-01 00:07] LABS: Pancreatic Elastase, Fecal 347 (>200)
[2024-03-04 19:07] LABS: Calprotectin, Stool 91 ug/g (0-120); Fats, Neutral Normal (.); Fats, Total Increased (.)
== END | disposition home or self-care (01) ==
LOC: LABSPEC 11:23
PROVIDERS: PCP Family Medicine; Referring Provider Student in an Organized Health Care Education/Training Program; Visit Provider Student in an Organized Health Care Education/Training Program
DX: K58.0 Irritable bowel syndrome with diarrhea (principal)
CPT/HCPCS: 82653; 82705; 83630; 83993

== ENCOUNTER → 2024-04-01 | Outpatient (CLI) | payer MEDICARE, SELFPAY ==
--- NOTE | 2024-04-01 10:04 | NEURO ---
NCS and/or EMG Patient Report Ordering Doctor: Lobo Newsome DATE OF SERVICE: 04/01/24 Clinical Summary: 73 year old female patient with symptoms of numbness and discomfort/pain in both hands. Nerve Conduction Studies Summary: Nerve conductions were performed for the bilateral upper extremities. The median-D2 SNAP distal latency was prolonged bilaterally with reduced amplitudes. The ulnar-D5 SNAP distal latency was prolonged bilaterally. The median-APB CMAP distal latency was prolonged bilaterally. The right ulnar-ADM CMAP distal latency was mildly prolonged. There was a greater than 10% drop in amplitudes across the forearm for the right ulnar ADM/FDI CMAP's likely due to the presence of Lai-Mamie anastomosis. The absolute right ulnar motor conduction velocity at the elbow was reduced. Needle Examination Summary: Needle examination of select muscles of the bilateral upper extremities demonstrated a higher proportion of motor unit action potentials with reduced recruitment, increased amplitude, increased duration, and polyphasia in the left deltoid, left biceps, left triceps, left flexor carp radialis, and bilateral abductor pollicis brevis muscles. 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
== END | disposition home or self-care (01) ==
LOC: PSN 08:50
PROVIDERS: PCP Family Medicine; Referring Provider Family Medicine; Visit Provider Family Medicine
DX: R20.0 Anesthesia of skin (principal)
CPT/HCPCS: 95886; 95912

== ENCOUNTER → 2024-06-10 | Outpatient (CLI) | payer MEDICARE, SELFPAY ==
[2024-06-10 12:40] LABS: Anion Gap 6 (5-15); BUN 17 mg/dL (7-18); BUN/Creat Ratio 19.7 RATIO (10-20); Calcium,Total 8.9 mg/dL (8.5-10.1); Chloride 109 mmol/L (98-107); Creatinine, Serum 0.86 mg/dL (0.55-1.02); EST Glomerular Filtration Rate 68 mL/min (>60); Est Glom Filt Rate - Afr Amer 82 mL/min (>60); Glucose 95 mg/dL (74-106); Sodium Level 140 mmol/L (136-145)
== END | disposition home or self-care (01) ==
LOC: MTLAB 09:14
PROVIDERS: PCP Family Medicine; Referring Provider Internal Medicine Cardiovascular Disease; Visit Provider Internal Medicine Cardiovascular Disease
DX: I10 Essential (primary) hypertension (principal)
CPT/HCPCS: 36415; 80048

== ENCOUNTER → 2024-06-13 | Outpatient (CLI) | payer MEDICARE, SELFPAY ==
--- NOTE | 2024-06-13 06:40 | ECHOD_ITS ---
Reason For Study: Dyspnea/SOB Procedure This was a 2D Doppler, Color Flow transthoracic echocardiogram. Myocardial strain analysis was performed in this exam to aid in the assessment of cardiac function. Exam performed in department. Left Ventricle Normal LV size. Mild concentric left ventricular hypertrophy. The global longitudinal strain = -20.4 % (normal). The left ventricular ejection fraction is 65 %. Stage 1 diastolic dysfunction. Right Ventricle Normal right ventricle. Atria The left atrium is mildly enlarged. Normal right atrium. Mitral Valve Trivial mitral valve insufficiency. Tricuspid Valve Mild tricuspid valve insufficiency. Right ventricular systolic pressure estimated to be 39 mmHg. Aortic Valve Trisinus/trileaflet aortic valve. Pulmonic Valve The pulmonic valve is not well visualized. Great Vessels Normal sized aortic root. Pericardium/Pleural Trivial to small loculated posterior pericardial effusion. MMode/2D Measurements & Calculations LVIDd: 4.7 cm IVSd: 1.4 cm asc Aorta Diam: 3.0 cm LVIDs: 2.4 cm LVPWd: 1.3 cm RVDd: 3.4 cm FS: 48.8 % LAV(MOD-bp): 50.9 ml LVAd ap4: 27.2 cm2 SV(MOD-sp4): 53.5 ml LAV(MOD-bp) Indexed: 25.3 ml/m2 LVLd ap4: 7.3 cm SI(MOD-sp4): 26.5 ml/m2 LAV(MOD-sp2): 29.2 ml EDV(MOD-sp4): 80.4 ml LAV(MOD-sp4): 65.4 ml EDV(sp4-el): 86.0 ml LVAs ap4: 14.0 cm2 LVLs ap4: 6.0 cm ESV(MOD-sp4): 26.9 ml ESV(sp4-el): 27.6 ml EF(MOD-sp4): 66.5 % EF(sp4-el): 67.9 % SV(sp4-el): 58.4 ml LA A4 area: 22.3 cm2 LA dimension(2D): 4.2 cm RA A4 area: 11.8 cm2 TAPSE: 2.3 cm Time Measurements MV dec time: 0.20 sec Doppler Measurements & Calculations MV E max jamal: 77.3 cm/sec Lat Peak E' Jamal: 5.6 cm/sec Med Peak E' Jamal: 5.1 cm/sec MV A max jamal: 82.7 cm/sec E/E' lat: 13.7 E/E' med: 15.2 MV E/A: 0.93 Ao V2 max: 144.5 cm/sec LV V1 max: 109.3 cm/sec MV dec slope: 390.9 cm/sec2 Ao max P.4 mmHg LV V1 max P.8 mmHg Ao V2 mean: 100.2 cm/sec Ao mean P.4 mmHg Ao V2 VTI: 37.4 cm PA V2 max: 98.2 cm/sec PI end-d jamal: 87.5 cm/sec TR max jamal: 291.5 cm/sec TR max P.0 mmHg ECHO/Echo Complete Interpretation Summary Mild concentric left ventricular hypertrophy. The global longitudinal strain = -20.4 % (normal). The left ventricular ejection fraction is 65 %. Stage 1 diastolic dysfunction. Mild tricuspid valve insufficiency. Right ventricular systolic pressure estimated to be 39 mmHg. Trivial to small loculated posterior pericardial effusion. Ordering Physician: Kassidy Hazel Referring Physician: Lobo Newsome Performed By: Bambi Mclean, NANNETTE, RVT
--- NOTE | 2024-06-13 13:48 | STRESSREP_ITS ---
Stress Test Report Date: 06/13/2024 Procedure: Pharmacologic stress nuclear imaging study Indications: Abnormal ECG Consent: Per the patient Procedure: The patient underwent pharmacologic (Regadenoson 0.4mg ) evaluation with a peak heart rate of 68 beats per minute (46%predicted maximal heart rate) and a peak blood pressure of 198/72 mmHg. The baseline ECG demonstrated sinus rhythm. The peak pharmacologic ECG demonstrated no ischemic changes. There were no cardiac dysrhythmias pretest, during pharmacologic infusion, or recovery. There was no complaint of chest discomfort during pharmacologic infusion or recovery. The patient was injected with 14.4 millicuries of technetium 99m Cardiolite and subsequently rest SPECT Cardiolite nuclear imaging was obtained in the horizontal long, vertical long, and short axis views. The patient underwent pharmacologic (Regadenoson) evaluation. The patient was injected with 43.7 millicuries of technetium 99m Cardiolite and subsequently stress SPECT Cardiolite nuclear imaging was obtained in the horizontal long, vertical long, and short axis views. A gated Cardiolite study at peak stress was obtained. The examination was stopped secondary to completion of protocol. Rest and stress SPECT Cardiolite nuclear imaging status post realignment, normalization, and attenuation correction demonstrate no fixed or reversible perfusion defects. There is end systolic thickening and brightening. The gated Cardiolite study demonstrates myocardial thickening and inward wall motion. The reported LVEF is 72%. Impression: 1. Pharmacologic (Regadenoson) evaluation 2. Peak pharmacologic ECG with no diagnostic ischemic changes. 3. There were no cardiac dysrhythmias pretest, during pharmacologic infusion, or recovery. 5. Rest and stress SPECT Cardiolite nuclear imaging demonstrate relative uniform tracer uptake and myocardial perfusion appearing within normal limits. 6. The gated Cardiolite study reports an LVEF of 72%. This note was generated with [employer] software. It may contain incorrect words, spelling, and punctuation that were not noted in checking the note before signing.
== END | disposition home or self-care (01) ==
LOC: CVS 06:40
PROVIDERS: PCP Family Medicine; Referring Provider Internal Medicine Cardiovascular Disease; Visit Provider Internal Medicine Cardiovascular Disease
DX: R06.09 Other forms of dyspnea (principal); I10 Essential (primary) hypertension; R01.1 Cardiac murmur, unspecified
CPT/HCPCS: 78452; 93017; 93306; A9500; A4216; J2785

== ENCOUNTER → 2024-08-22 | Outpatient (CLI) | payer MEDICARE, SELFPAY ==
[2024-08-25 15:08] LABS: Giardia Lamblia, Stool EIA Negative (Negative); Pancreatic Elastase, Fecal 186 (>200)
[2024-08-25 17:07] LABS: Calprotectin, Stool 104 ug/g (0-120)
== END | disposition home or self-care (01) ==
PROVIDERS: PCP Family Medicine; Referring Provider Student in an Organized Health Care Education/Training Program; Visit Provider Student in an Organized Health Care Education/Training Program
DX: R19.5 Other fecal abnormalities (principal); K58.0 Irritable bowel syndrome with diarrhea
CPT/HCPCS: 82653; 83630; 83993; 87177; 87209; 87329; 87493

== ENCOUNTER 2024-09-15 10:46 | Observation (INO) | payer MEDICARE, SELFPAY ==
[2024-09-15] VITALS (7 sets, daily range): BP systolic 135–197; BP diastolic 52–93; PULSE 64–72; RESP 15–21; TEMP 36.6–37.2; O2SAT 94–98; BMI 39.9; BMI 38.6
--- NOTE | 2024-09-15 11:05 | EKG12_ITS ---
Test Reason : Blood Pressure : */* mmHG Vent. Rate : 65 BPM Atrial Rate : 65 BPM P-R Int : 158 ms QRS Dur : 88 ms QT Int : 406 ms P-R-T Axes : 61 -1 89 degrees QTcB Int : 422 ms Normal sinus rhythm Nonspecific ST and T wave abnormality Abnormal ECG Confirmed by [employer] CLEMENT, KELBY ([id number]), primer expeditor and drier ZHENG MORAN ([id number]) on 09/16/2024 8:09:44 AM Referred By: Confirmed By: KELBY MARINELLI MD
--- NOTE | 2024-09-15 11:05 | CT_ITS ---
PROCEDURE: CTA CHEST W/WO CONTRAST 09/15/2024 REASON FOR EXAM: RIGHT CHEST PAIN, HIGH RISK PE TECHNIQUE: CTA chest was performed with IV contrast. Multiplanar reformats and MIP reconstructions were generated. CONTRAST: Isovue 370 VOLUME: 97 mL One or more dose reduction techniques were used (e.g., Automated exposure control, adjustment of the mA and/or kV according to patient size, use of iterative reconstruction technique). RADIATION DOSE SUMMARY: CTDlvol: 11.87+ 21.37+ 14.44+ 7.12+ 14.43 mGy DLP: 923.21 mGycm COMPARISON: None FINDINGS: Exam limited by suboptimal opacification of the pulmonary arterial tree with opacification of the main pulmonary artery 2 190 Hounsfield units as compared with 352-355 within the adjacent pulmonary veins and thoracic aorta. Additional limitation related to streak artifact from densely opacified SVC, RIGHT subclavian, and RIGHT brachiocephalic veins. Heart/pericardium: Unremarkable. Aorta: Trace to mild atherosclerosis. Pulmonary arteries: Normal in caliber. RIGHT-sided pulmonary emboli are present extending from the RIGHT mainstem bronchus into upper lobe branches, appearing occlusive in these locations. Nonocclusive and occlusive pulmonary emboli also present within RIGHT lower lobar pulmonary artery and extending into segmental/subsegmental branches no central or definite LEFT-sided pulmonary embolism allowing for limitations. Lymph nodes: Subcarinal node is difficult to delineate from the adjacent esophagus, roughly 13 mm short axis. Lungs/pleura: Slightly elevated RIGHT hemidiaphragm. Trace RIGHT pleural effusion. Dependent atelectasis. Mild focal ground-glass in the lateral RIGHT lower lobe. Airways: Unremarkable. Chest wall: Unremarkable. Upper abdomen: Atherosclerosis. Cholecystectomy. Dilatation of the CBD which may be related to post cholecystectomy effect. 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 Musculoskeletal: Degenerative changes of the shoulders. Multilevel spondylosis. Partially imaged spinal stimulator. Thoracolumbar scoliosis. CT/CTA Chest W/WO Contrast IMPRESSION: 1. Central RIGHT upper and lower lobe occlusive and nonocclusive pulmonary embo li as detailed. No definite central or definite LEFT-sided pulmonary embolism allowing for limitations. 2. Mild focal ground-glass in the lateral RIGHT lower lobe could reflect a deve loping pulmonary infarct given the above. Pneumonia/pneumonitis is an additional consideration. 3. Mild mediastinal lymphadenopathy, nonspecific and potentially reactive in th e absence of known malignancy. Correlate with medical history and follow-up as indicated. 4. Cholecystectomy with dilatation of the CBD which may be related to post chol ecystectomy effect. Correlate with serum bilirubin and consider outpatient MRCP as indicated. 5. Tiny 8 mm peripherally calcified distal splenic artery aneurysm. 6. Additional description as above. IMPRESSION: [place]anchard Alert: Impression #1 and #2 The critical information above was relayed directly by me by telephone to Mariana Zacarias on 09/15/2024 at 11:36 am MST with readback verification. Reading Location: [id number]
--- NOTE | 2024-09-15 11:12 | EDS_ITS ---
HPI History of Present Illness Chief Complaint: Chest Pain Informant: patient Narrative Narrative: Patient is a 74-year-old female with history of IBS, hypothyroidism, hypertension, hyperlipidemia and recent fusion of her right ankle on August [address] Barone at the [facility]. She has been on aspirin 81 mg twice daily since then. She is nonweightbearing. She notes that this morning she developed pain under her right breast. It seems to be worse with breathing and especially with coughing. She had a coughing spell this morning she states was very painful. She states the cough is nonproductive. Denies any fever or recent URI symptoms peer denies any nausea or vomiting. Denies feeling short of breath. Denies any new swelling of her leg. Denies any injury or falls. States she did have OT today and had a shower but does not think this is related. States she felt well yesterday. Denies any history of DVT or PE. No other complaints or concerns reported at this time. Notes she has been doing with some constipation recently but denies any acute concerns with this at this time. [facility] Medical History Irritable bowel syndrome Pancreatitis Tension headache Wears hearing aid Post-menopausal History of steroid therapy Walker as ambulation aid Arthritis Anemia Back pain Difficulty swallowing Diarrhea Wears glasses Depression Anxiety Thyroid disease Unspecified diffuse connective tissue disease Easy bruising History of IBS Non-smoker Shortness of breath on exertion History of echocardiogram Cardiac murmur Hip pain, left Home Medications ?Medication ?Instructions ?Recorded ?Last Taken ?Type duloxetine 60 mg capsule,delayed 60 mg PO QHS 07/29/18 Unknown History release hydroxychloroquine 200 mg tablet 200 mg PO QHS arthrit is 07/29/18 Unknown History (Plaquenil) levothyroxine 100 mcg tablet 100 mcg PO DAILY 07/29/18 11/28/21 06:00 History (Synthroid) buspirone 7.5 mg tablet 7.5 mg PO BID 11/28/2111/28 06:00 History gabapentin 100 mg capsule 400 mg PO TID 11/28/2111/28 06:00 History lamotrigine 100 mg tablet 100 mg PO DAILY 11/28/21 Unk nown History meloxicam 15 mg tablet 15 mg PO DAILY 12/18/23 Unkn own History brexpiprazole 0.5 mg tablet 0.5 mg PO DAILY 01/04/24 U nknown History (Rexulti) cholestyramine (with sugar) 4 gram 4 g PO DAILY #348.6 grams 01/31/24 Unknown Rx oral powder dicyclomine 10 mg capsule 10 mg PO TID #90 caps Unknown Rx acetaminophen 500 mg capsule 500 mg PO Q8 PRN 05/12/24 Unknown History cholecalciferol (vitamin D3) 10 10 mcg PO QDAY 4 Unknown History mcg (400 unit) capsule clonazepam 0.5 mg tablet 0.5 mg PO QHS 05/12/24 Unkno wn History multivitamin 1 tab PO QDAY 05/12/24 Unkno wn History [id number] See Rx Instructions PO .COMP ARUNA 05/22/24 Unknown Rx 36,000-114,000-180,000 unit #320 caps capsule,delay rel (Creon) omeprazole 20 mg capsule,delayed 20 mg PO DAILY #30 ca ps 07/01/24 Unknown Rx release valsartan 160 mg tablet 160 mg PO BID #180 tabs 08/10 12/03 Unknown Rx brexpiprazole 2 mg tablet (Rexulti) mg DAILY 09/15/24 Unknown History Allergy/AdvReac Type Severity Reaction Status Date / Time grass pollen Allergy Mild Other Verified 05/15/24 10:10 house dust Allergy Mild Other Verified 05/15/24 10:10 oak Allergy Mild Other Verified 05/15/24 10:10 Seasonal Allergies: Uncoded Allergy Mild nasal Verified 05/15/24 10:10 congestion soap AdvReac Mild Rash Verified 05/15/24 10:10 Family History Mother Oat cell carcinoma of lung Brother Cancer Grandmother Thyroid disorder Uncle Diabetes Surgical History Hx of surgical procedure History of esophagogastroduodenoscopy (EGD) Hx of colonoscopy Hx of thumb surgery History of carpal tunnel surgery of right wrist History of carpal tunnel surgery of left wrist History of cholecystectomy History of cataract extraction History of bunionectomy History of broken nose History of hip replacement History of laminectomy History of knee replacement Social History household members: none number of children: 2 current occupational status: retired Smoking Status: Never smoker Electronic Cigarette Use: not used alcohol intake: current alcohol intake frequency: other details: occasional use substance use type: does not use ROS ROS ED Constitutional Constitutional ED: Denies chills or fever(s) ENT ENT ED: Denies rhinorrhea or sore throat Cardiovascular Cardiovascular: Reports as per HPI and chest pain; Denies palpitations Respiratory/Chest Respiratory/Chest: Reports cough; Denies dyspnea Gastrointestinal Gastrointestinal: Reports constipation; Denies nausea or vomiting Musculoskeletal Musculoskeletal: Reports other Details: Recent right foot/ankle surgery?currently nonweightbearing Integumentary Denies rash Neurologic Neurologic: Denies paresthesias or weakness Psychiatric Psychiatric: Denies anxiety Hematologic/Lymphatic Hematologic/Lymphatic: Denies easy bleeding or easy bruising EXAM Physical Exam Const Vital Signs: 09/15/24 10:47 Temperature 97.8 F Temperature Source Oral Pulse Rate 66 Respiratory Rate 21 H Blood Pressure 179/52 H Blood Pressure Mean 94 Pulse Ox 96 Oxygen Delivery Method Room Air Positive well nourished and well developed General Appearance ED: well developed and NAD HEENT Reports moist mucous membranes Neck supple and no JVD Chest Wall inspection of chest normal and palpation of chest normal Chest Narrative: Patient notes she has improvement with her discomfort with direct palpation to the right chest. No associated rash. No chest wall crepitus. Resp normal respiratory effort and clear to auscultation bilaterally Cardio regular rate and regular rhythm Peripheral Pulses: dorsalis pedis pulses present right 2+ Back/Spine no thoracic nor lumbar tenderness Extremity Extremity Narrative: No edema present. Compartments are soft. No palpable cords. Maximilian wrap/postoperative bandage on right foot clean and dry. Neuro oriented x3 Sensorium / Orientation: awake and alert Motor Exam: Negative for general weakness Psych mental status grossly normal Skin no rashes or lesions noted MDM MDM Rhythm Strip Rhythm Strip: Sinus Rhythm Rate: 65 Ectopy: None EKG Initial EKG: Attestation: I personally reviewed and interpreted this EKG as follows: Comments: Normal sinus rhythm at a rate 65 bpm Normal axis Normal intervals Normal ST segments When compared to prior EKG on 10/09/2020, slight T wave morphology change to lead III with no other acute changes Discharge Plan Triage Chief Complaint: Chest Pain ED Provider: Mariana Clemons Dx/Rx/DC Orders Prescriptions: No Action meloxicam 15 mg tablet 15 mg PO DAILY multivitamin Tablet 1 tab PO QDAY clonazepam 0.5 mg tablet 0.5 mg PO QHS Rx Instructions: administer 30 minutes before bedtime acetaminophen 500 mg capsule 500 mg PO Q8 PRN cholecalciferol (vitamin D3) 10 mcg (400 unit) capsule 10 mcg PO QDAY levothyroxine [Synthroid] 100 MCG tablet 100 mcg PO DAILY hydroxychloroquine [Plaquenil] 200 MG tablet 200 mg PO QHS duloxetine 60 MG capsule 60 mg PO QHS buspirone 7.5 mg Tablet 7.5 mg PO BID lamotrigine 100 mg Tablet 100 mg PO DAILY gabapentin 100 mg capsule 400 mg PO TID Rx Instructions: one three times a day with Gabapentin 300 mg three times a day Rexulti 2 mg tablet DAILY Rexulti 0.5 mg tablet 0.5 mg PO DAILY cholestyramine (with sugar) 4 gram powder 4 g PO DAILY Qty: 348.6 3RF Rx Instructions: administer w/meal; avoid other meds within 1hr before or 4-6hr after dose dicyclomine 10 mg capsule 10 mg PO TID Qty: 90 0RF Creon 36,000-114,000- 180,000 unit capsule,delayed release(DR/EC) See Rx Instructions PO .COMPLEX Qty: 320 5RF Rx Instructions: take 1-2 with snacks and 2-3 with meals K86.81 omeprazole 20 mg capsule,delayed release(DR/EC) 20 mg PO DAILY Qty: 30 3RF valsartan 160 mg tablet 160 mg PO BID Qty: 180 3RF Primary Care Provider: Lobo Newsome Referrals: Lobo Newsome MD [Primary Care Provider] - Print Language: Yi
--- NOTE | 2024-09-15 11:12 | ED.VIS.CHEST ---
HPI History of Present Illness Chief Complaint: Chest Pain Informant: patient Narrative Narrative: Patient is a 74-year-old female with history of IBS, hypothyroidism, hypertension, hyperlipidemia and recent fusion of her right ankle on August [address] Barone at the [facility]. She has been on aspirin 81 mg twice daily since then. She is nonweightbearing. She notes that this morning she developed pain under her right breast. It seems to be worse with breathing and especially with coughing. She had a coughing spell this morning she states was very painful. She states the cough is nonproductive. Denies any fever or recent URI symptoms peer denies any nausea or vomiting. Denies feeling short of breath. Denies any new swelling of her leg. Denies any injury or falls. States she did have OT today and had a shower but does not think this is related. States she felt well yesterday. Denies any history of DVT or PE. No other complaints or concerns reported at this time. Notes she has been doing with some constipation recently but denies any acute concerns with this at this time. [facility] Medical History Irritable bowel syndrome Pancreatitis Tension headache Wears hearing aid Post-menopausal History of steroid therapy Walker as ambulation aid Arthritis Anemia Back pain Difficulty swallowing Diarrhea Wears glasses Depression Anxiety Thyroid disease Unspecified diffuse connective tissue disease Easy bruising History of IBS Non-smoker Shortness of breath on exertion History of echocardiogram Cardiac murmur Hip pain, left Home Medications ?Medication ?Instructions ?Recorded ?Last Taken ?Type duloxetine 60 mg capsule,delayed 60 mg PO QHS 07/29/18 09/14/24 History release hydroxychloroquine 200 mg tablet 200 mg PO QHS arthritis 07/29/18 09/14/24 History (Plaquenil) levothyroxine 100 mcg tablet 100 mcg PO DAILY 07/29/18 09/15/24 History (Synthroid) buspirone 7.5 mg tablet 11.25 mg PO BID 11/28/21 09/15/24 History meloxicam 15 mg tablet 15 mg PO DAILY 12/18/23 09/14/24 History dicyclomine 10 mg capsule 10 mg PO TID #90 caps 03/19/24 09/14/24 Rx acetaminophen 500 mg capsule 500 mg PO Q8 PRN fever or pain 05/12/24 09/15/24 History cholecalciferol (vitamin D3) 10 10 mcg PO QDAY 05/12/24 09/15/24 History mcg (400 unit) capsule clonazepam 0.5 mg tablet 0.5 mg PO QHS 05/12/24 09/14/24 History multivitamin 1 tab PO QDAY 05/12/24 09/15/24 History [id number] See Rx Instructions PO .COMPLEX 05/22/24 09/15/24 Rx 36,000-114,000-180,000 unit #320 caps capsule,delay rel (Creon) omeprazole 20 mg capsule,delayed 20 mg PO DAILY #30 caps 07/01/24 09/15/24 Rx release valsartan 160 mg tablet 160 mg PO BID #180 tabs 09/03/24 09/15/24 Rx aspirin 81 mg tablet,delayed 81 mg PO BID 09/15/24 09/15/24 History release (Adult Low Dose Aspirin) brexpiprazole 2 mg tablet (Rexulti) 2 mg PO DAILY 09/15/24 09/14/24 History cephalexin 500 mg capsule 500 mg PO Q6H 09/15/24 09/14/24 History gabapentin 300 mg capsule 300 mg PO TID 09/15/24 09/15/24 History oxycodone 5 mg tablet 5 mg PO Q6H PRN pain 09/15/24 09/14/24 History psyllium husk 0.52 gram capsule 0.52 g PO DAILY 09/15/24 09/15/24 History (Daily Fiber) Allergy/AdvReac Type Severity Reaction Status Date / Time grass pollen Allergy Mild Other Verified 05/15/24 10:10 house dust Allergy Mild Other Verified 05/15/24 10:10 oak Allergy Mild Other Verified 05/15/24 10:10 Seasonal Allergies: Uncoded Allergy Mild nasal Verified 05/15/24 10:10 congestion soap AdvReac Mild Rash Verified 05/15/24 10:10 Family History Mother Oat cell carcinoma of lung Brother Cancer Grandmother Thyroid disorder Uncle Diabetes Surgical History Hx of surgical procedure History of esophagogastroduodenoscopy (EGD) Hx of colonoscopy Hx of thumb surgery History of carpal tunnel surgery of right wrist History of carpal tunnel surgery of left wrist History of cholecystectomy History of cataract extraction History of bunionectomy History of broken nose History of hip replacement History of laminectomy History of knee replacement Social History household members: none number of children: 2 current occupational status: retired Smoking Status: Never smoker Electronic Cigarette Use: not used alcohol intake: current alcohol intake frequency: other details: occasional use substance use type: does not use ROS ROS ED Constitutional Constitutional ED: Denies chills or fever(s) ENT ENT ED: Denies rhinorrhea or sore throat Cardiovascular Cardiovascular: Reports as per HPI and chest pain; Denies palpitations Respiratory/Chest Respiratory/Chest: Reports cough; Denies dyspnea Gastrointestinal Gastrointestinal: Reports constipation; Denies nausea or vomiting Musculoskeletal Musculoskeletal: Reports other Details: Recent right foot/ankle surgery?currently nonweightbearing Integumentary Denies rash Neurologic Neurologic: Denies paresthesias or weakness Psychiatric Psychiatric: Denies anxiety Hematologic/Lymphatic Hematologic/Lymphatic: Denies easy bleeding or easy bruising EXAM Physical Exam Const Vital Signs: 09/15/24 10:47 09/15/24 12:46 09/15/24 14:00 Temperature 97.8 F Temperature Source Oral Pulse Rate 66 64 69 Respiratory Rate 21 H 19 H 15 Blood Pressure 179/52 H 167/60 H 197/64 H Blood Pressure Mean 94 95 108 Pulse Ox 96 98 97 Oxygen Delivery Method Room Air Room Air Room Air 09/15/24 15:00 Temperature 98.9 F Temperature Source Pulse Rate 68 Respiratory Rate 18 Blood Pressure 168/65 H Blood Pressure Mean 99 Pulse Ox 97 Oxygen Delivery Method Positive well nourished and well developed General Appearance ED: well developed and NAD HEENT Reports moist mucous membranes Neck supple and no JVD Chest Wall inspection of chest normal and palpation of chest normal Chest Narrative: Patient notes she has improvement with her discomfort with direct palpation to the right chest. No associated rash. No chest wall crepitus. Resp normal respiratory effort and clear to auscultation bilaterally Cardio regular rate and regular rhythm Peripheral Pulses: dorsalis pedis pulses present right 2+ Back/Spine no thoracic nor lumbar tenderness Extremity Extremity Narrative: No edema present. Compartments are soft. No palpable cords. Maximilian wrap/postoperative bandage on right foot clean and dry. Neuro oriented x3 Sensorium / Orientation: awake and alert Motor Exam: Negative for general weakness Psych mental status grossly normal Skin no rashes or lesions noted MDM MDM MDM Narrative Medical decision making narrative: Patient is a 74-year-old female who is 2 months postop from right foot/ankle arthrodesis presenting with 1 day of pleuritic right-sided chest pain and coughing. Patient appears nontoxic. Vital signs significant for hypertension but she states she recently had increased her blood pressure medicine and they have been trying to manage it outpatient. Patient given Lidoderm patch for her pain. Given her recent surgery and pleuritic chest pain high concern for pulmonary emboli. CTA of the chest is ordered as well as lab work including CBC, BNP, high-sensitivity troponin and coags. Patient does have a leukocytosis of 16.1. Remainder of her lab work is largely normal.CTA of the chest shows central right upper and lower lobe occlusive and nonocclusive pulmonary emboli with groundglass changes to the lateral right lower lobe which could be developing pulmonary infarct versus pneumonia versus pneumonitis. Case discussed with hospitalist, Dr. Duffy. . Patient is very nervous about going home weeks where she has her maternal half-sister of a pulmonary emboli. Patient will be admitted. Is started on Eliquis and universal to the emergency room. Blood pressure is elevated emergency room however given that her diastolic is normal I suspect it is more anxiety/pain. Is given dose of fentanyl and will continue to monitor blood pressure. Discussed risk of bleeding associate with anticoagulation and patient denies any history of GI bleeding or other abnormal bleeding. Patient does have a leukocytosis. She denies any recent fever or other infectious symptoms. I suspect the leukocytosis and lung parenchymal findings are more associated with infarct and not pneumonia. This will be monitored inpatient. Lab Data Attestation: I reviewed the patient's lab results. Labs: Laboratory Results - last 24 hr 09/15/24 09/15/24 11:22 13:19 WBC 16.1 H RBC 4.43 Hgb 12.5 Hct 38.9 MCV 87.8 MCH 28.2 MCHC 32.1 RDW Std Deviation 47.3 H RDW Coeff of Mikel 14.6 Plt Count 240 MPV 10.9 Immature Gran % (Auto) 0.400 Neut % (Auto) 75.0 H Lymph % (Auto) 15.7 L [place]ha % (Auto) 6.5 Eos % (Auto) 2.1 Baso % (Auto) 0.3 Absolute Neuts (auto) 12.1 H Absolute Lymphs (auto) 2.52 Nucleated RBC % 0 PT 12.9 INR 1.0 APTT 24.8 Sodium 139 Potassium 4.1 Chloride 105 Carbon Dioxide 23.3 Anion Gap 11 BUN 16 Creatinine 0.83 Estim Creat Clear Calc 66.83 Est GFR (MDRD) Non-Af 74 BUN/Creatinine Ratio 19.5 Glucose 112 H Calcium 9.2 Troponin T High Sens 14 Troponin T Hi Sens 2 Hr 13 NT pro BNP II 101 Radiography Diagnostic Testing: Clinical Impression(s) from Imaging Studies Chest CTA 09/15/24 11:05 IMPRESSION: 1. Central RIGHT upper and lower lobe occlusive and nonocclusive pulmonary emboli as detailed. No definite central or definite LEFT-sided pulmonary embolism allowing for limitations. 2. Mild focal ground-glass in the lateral RIGHT lower lobe could reflect a developing pulmonary infarct given the above. Pneumonia/pneumonitis is an additional consideration. 3. Mild mediastinal lymphadenopathy, nonspecific and potentially reactive in the absence of known malignancy. Correlate with medical history and follow-up as indicated. 4. Cholecystectomy with dilatation of the CBD which may be related to post cholecystectomy effect. Correlate with serum bilirubin and consider outpatient MRCP as indicated. 5. Tiny 8 mm peripherally calcified distal splenic artery aneurysm. 6. Additional description as above. IMPRESSION: [place] Alert: Impression #1 and #2 The critical information above was relayed directly by me by telephone to Mariana Clemons on 09/15/2024 at 11:36 am MST with readback verification. Reading Location: [facility] Rhythm Strip Rhythm Strip: Sinus Rhythm Rate: 65 Ectopy: None EKG Initial EKG: Attestation: I personally reviewed and interpreted this EKG as follows: Comments: Normal sinus rhythm at a rate 65 bpm Normal axis Normal intervals Normal ST segments When compared to prior EKG on 10/09/2020, slight T wave morphology change to lead III with no other acute changes Management Discussion w/another healthcare provider: Hospitalist Discharge Plan Triage Chief Complaint: Chest Pain ED Provider: Mariana Clemons Dx/Rx/DC Orders Clinical Impression: Pulmonary embolism on right, Hypertension, Pulmonary infarction, Acute right-sided thoracic back pain, Pleurisy, Leukocytosis Prescriptions: No Action meloxicam 15 mg tablet 15 mg PO DAILY multivitamin Tablet 1 tab PO QDAY clonazepam 0.5 mg tablet 0.5 mg PO QHS Rx Instructions: administer 30 minutes before bedtime acetaminophen 500 mg capsule 500 mg PO Q8 PRN (Reason: fever or pain) cholecalciferol (vitamin D3) 10 mcg (400 unit) capsule 10 mcg PO QDAY levothyroxine [Synthroid] 100 MCG tablet 100 mcg PO DAILY hydroxychloroquine [Plaquenil] 200 MG tablet 200 mg PO QHS duloxetine 60 MG capsule 60 mg PO QHS buspirone 7.5 mg Tablet 11.25 mg PO BID Rexulti 2 mg tablet 2 mg PO DAILY psyllium husk [Daily Fiber] 0.52 gram capsule 0.52 g PO DAILY aspirin [Adult Low Dose Aspirin] 81 mg tablet,delayed release (DR/EC) 81 mg PO BID cephalexin 500 mg capsule 500 mg PO Q6H oxycodone 5 mg tablet 5 mg PO Q6H PRN (Reason: pain) gabapentin 300 mg capsule 300 mg PO TID dicyclomine 10 mg capsule 10 mg PO TID Qty: 90 0RF Creon 36,000-114,000- 180,000 unit capsule,delayed release(DR/EC) See Rx Instructions PO .COMPLEX Qty: 320 5RF Rx Instructions: take 1-2 with snacks and 2-3 with meals K86.81 omeprazole 20 mg capsule,delayed release(DR/EC) 20 mg PO DAILY Qty: 30 3RF valsartan 160 mg tablet 160 mg PO BID Qty: 180 3RF Primary Care Provider: Lobo Newsome Referrals: Lobo Newsome MD [Primary Care Provider] - Print Language: Hebrew Disposition Disposition: Acute Care Hospital [facility]
[2024-09-15] MEDS: Lidocaine 5% Patch 1 PATCH TOPICAL (11:18)
[2024-09-15 11:36] LABS: Absolute Lymphocyte Count 2.52 X10^3/uL (0.83-4.51); Absolute Neutrophil Count 12.1 X10^3/uL (2.0-7.7); Basophil# 0.05 X10^3/uL; Basophil% 0.3 % (0-1); Eosinophil# 0.34 X10^3/uL; Eosinophils% 2.1 % (0-5); Hematocrit 38.9 % (37-47); Hemoglobin 12.5 g/dL (12.0-15.0); Lymphocyte # 2.52 X10^3/ul (0.83-4.51); Lymphocyte % 15.7 % (19-41); Mean Corp Hgb Conc 32.1 g/dL (32-36); Mean Corpuscular Hgb 28.2 pg (27.0-32.0); Mean Corpuscular Volume 87.8 fL (81-99); Mean Platelet Vol. 10.9 fl (6.2-12.0); Monocyte# 1.05 X10^3/uL; Monocyte% 6.5 % (0-10); NRBC Flagged by Analyzer 0 % (0-5); Neutrophil # 12.07 X10^3/uL (2.7-7.7); Platelet Count 240 K/mm3 (150-450); RBC Distribution Width CV 14.6 % (11.6-14.6); RBC Distribution Width SD 47.3 fl (35.1-43.9); Red Blood Count 4.43 M/mm3 (4.2-5.4); White Blood Count 16.1 K/mm3 (4.4-11.0)
[2024-09-15 11:41] LABS: Partial Thromboplast Time 24.8 Seconds (24.1-36.2); Prothrombin Time (Protime)PT. 12.9 SECONDS (11.7-14.9)
[2024-09-15 11:52] LABS: Anion Gap 11 (5-15); BUN 16 mg/dL (4-19); BUN/Creat Ratio 19.5 RATIO (10-20); Calcium,Total 9.2 mg/dL (7.6-11.0); Carbon Dioxide 23.3 mmol/L (21.0-32.0); Chloride 105 mmol/L (98-108); Creatinine, Serum 0.83 mg/dL (0.70-1.20); EST Glomerular Filtration Rate 74 (>60); Estimated Creatinine Clearance 66.83 ml/min (50-250); Glucose 112 mg/dL (70-99); Potassium 4.1 mmol/L (3.3-5.1); Sodium Level 139 mmol/L (133-145); Troponin T High Sensitivity 14 ng/L (<=14)
[2024-09-15] MEDS: fentaNYL 100 MCG/2 ML Ampul 50 MCG IV (14:10)
[2024-09-15 14:22] LABS: Pro- Brain NATRIURETIC PEPTIDE 101 pg/mL (<=1800)
[2024-09-15 14:23] LABS: Troponin T High Sens 2 HR 13 ng/L (<=14)
--- NOTE | 2024-09-15 14:55 | PCM.HP.STD ---
HPI - General General Date of Admission: 09/15/24 HPI Narrative ABEL MUÑOZ, is a 74 F who presents to the hospital with chest pain shortness of breath that started today. She had right lower extremity foot surgery on 08/13/2024 and was discharged from an outside hospital on aspirin 81 mg p.o. twice daily. Since her surgery, on the right leg she has had some calf pain and then today had her shortness of breath and chest pain. Troponins x 2 are negative, BNP is also normal, and there is no right heart strain on CTA of the chest despite a somewhat central right PE. She does have some anxiety surrounding this pulmonary embolism as her half-sister from a blood clot to her lungs. There is no other family history of blood clots or miscarriages. She does have some pain with inspiration indicating pleuritic chest pain, and on the CT scan there is some mild groundglass opacities on the right lung consistent with possible infarct due to her pulmonary embolisms. I discussed the case with vascular surgery who does not plan any intervention at this time. She was given 10 mg of Eliquis in the ER. She has not noticed any swelling in her right lower extremity, and her foot is currently wrapped. She states that she has not had great wound healing and is scheduled to see a plastic surgeon with wound expertise within the next week or so. [facility] Medical History Irritable bowel syndrome Pancreatitis Tension headache Wears hearing aid Post-menopausal History of steroid therapy Walker as ambulation aid Arthritis Anemia Back pain Difficulty swallowing Diarrhea Wears glasses Depression Anxiety Thyroid disease Unspecified diffuse connective tissue disease Easy bruising History of IBS Non-smoker Shortness of breath on exertion History of echocardiogram Cardiac murmur Hip pain, left Home Medications ?Medication ?Instructions ?Recorded ?Last Taken ?Type duloxetine 60 mg capsule,delayed 60 mg PO QHS 07/29/18 09/14/24 History release hydroxychloroquine 200 mg tablet 200 mg PO QHS arthritis 07/29/18 09/14/24 History (Plaquenil) levothyroxine 100 mcg tablet 100 mcg PO DAILY 07/29/18 09/15/24 History (Synthroid) buspirone 7.5 mg tablet 11.25 mg PO BID 11/28/21 09/15/24 History meloxicam 15 mg tablet 15 mg PO DAILY 12/18/23 09/14/24 History dicyclomine 10 mg capsule 10 mg PO TID #90 caps 03/19/24 09/14/24 Rx acetaminophen 500 mg capsule 500 mg PO Q8 PRN fever or pain 05/12/24 09/15/24 History cholecalciferol (vitamin D3) 10 10 mcg PO QDAY 05/12/24 09/15/24 History mcg (400 unit) capsule clonazepam 0.5 mg tablet 0.5 mg PO QHS 05/12/24 09/14/24 History multivitamin 1 tab PO QDAY 05/12/24 09/15/24 History [id number] See Rx Instructions PO .COMPLEX 05/22/24 09/15/24 Rx 36,000-114,000-180,000 unit #320 caps capsule,delay rel (Creon) omeprazole 20 mg capsule,delayed 20 mg PO DAILY #30 caps 07/01/24 09/15/24 Rx release valsartan 160 mg tablet 160 mg PO BID #180 tabs 09/03/24 09/15/24 Rx aspirin 81 mg tablet,delayed 81 mg PO BID 09/15/24 09/15/24 History release (Adult Low Dose Aspirin) brexpiprazole 2 mg tablet (Rexulti) 2 mg PO DAILY 09/15/24 09/14/24 History cephalexin 500 mg capsule 500 mg PO Q6H 09/15/24 09/14/24 History gabapentin 300 mg capsule 300 mg PO TID 09/15/24 09/15/24 History oxycodone 5 mg tablet 5 mg PO Q6H PRN pain 09/15/24 09/14/24 History psyllium husk 0.52 gram capsule 0.52 g PO DAILY 09/15/24 09/15/24 History (Daily Fiber) Allergy/AdvReac Type Severity Reaction Status Date / Time grass pollen Allergy Mild Other Verified 05/15/24 10:10 house dust Allergy Mild Other Verified 05/15/24 10:10 oak Allergy Mild Other Verified 05/15/24 10:10 Seasonal Allergies: Uncoded Allergy Mild nasal Verified 05/15/24 10:10 congestion soap AdvReac Mild Rash Verified 05/15/24 10:10 Family History (Updated 09/15/24 @ 16:32 by Nicole Hu) Mother Oat cell carcinoma of lung Brother Cancer Grandmother Thyroid disorder Uncle Diabetes Sister Pulmonary embolism Surgical History Hx of surgical procedure History of esophagogastroduodenoscopy (EGD) Hx of colonoscopy Hx of thumb surgery History of carpal tunnel surgery of right wrist History of carpal tunnel surgery of left wrist History of cholecystectomy History of cataract extraction History of bunionectomy History of broken nose History of hip replacement History of laminectomy History of knee replacement Social History household members: none number of children: 2 current occupational status: retired Smoking Status: Never smoker Electronic Cigarette Use: not used alcohol intake: current alcohol intake frequency: other details: occasional use substance use type: does not use ROS Constitutional Constitutional: Denies chills, fatigue, fever(s) or malaise Eyes Eyes: Denies blurry vision ENT HEENT: Denies headache(s) or nasal discharge Cardiovascular Cardiovascular: Reports chest pain and dyspnea on exertion; Denies syncope Respiratory/Chest Respiratory/Chest: Denies cough, shortness of breath at rest or shortness of breath with exertion Gastrointestinal Gastrointestinal: Denies constipation, diarrhea, nausea or vomiting Genitourinary Genitourinary: Denies dysuria Neurologic Neurologic: Denies focal weakness, numbness or tremor(s) Psychiatric Psychiatric: Denies anxiety or depression Vital Signs Vital Signs Vital Signs: 09/15/24 10:47 09/15/24 12:46 09/15/24 14:00 Temperature 97.8 F Temperature Source Oral Pulse Rate 66 64 69 Respiratory Rate 21 H 19 H 15 Blood Pressure 179/52 H 167/60 H 197/64 H Blood Pressure Mean 94 95 108 Pulse Ox 96 98 97 Oxygen Delivery Method Room Air Room Air Room Air Weight Weight: 225 lb 1.471 oz Body Mass Index (BMI) 39.9 Physical Exam Narrative General: Alert, Oriented x3, Cooperative, No apparent distress HEENT: Atraumatic, PERRLA, EOMI, Normocephalic Oral: Moist Mucosa Neck: Supple, No JVD Lungs: Diminished, Normal air movement, No rhonchi, No wheeze, No rales Cardiovascular: Regular rate, Regular Rhythm, Normal S1, Normal S2, No murmurs Abdomen: Soft, Non Tender, Non-Distended, No Hepato-splenomegaly Extremities: No edema, Capillary Refill Less than 3 Seconds Skin: Right foot surgical wound is currently dressed, this was not taken down to assess Musculoskeletal: No Tenderness to Palpation of Joints or Extremities Neurological: No focal neurological deficits, Motor Exam 5/5 strength throughout, Sensory exam intact to light touch and pain Psych/Mental Status: Normal Affect, Appropriate Results Lab / Micro Data 09/15/24 11:22 09/15/24 11:22 Labs: Laboratory Results - last 24 hr 09/15/24 11:22: WBC 16.1 H, RBC 4.43, Hgb 12.5, Hct 38.9, MCV 87.8, MCH 28.2, MCHC 32.1, RDW Std Deviation 47.3 H, RDW Coeff of Mikel 14.6, Plt Count 240, MPV 10.9, Immature Gran % (Auto) 0.400, Neut % (Auto) 75.0 H, Lymph % (Auto) 15.7 L, [place] % (Auto) 6.5, Eos % (Auto) 2.1, Baso % (Auto) 0.3, Absolute Neuts (auto) 12.1 H, Absolute Lymphs (auto) 2.52, Nucleated RBC % 0, PT 12.9, INR 1.0, APTT 24.8, Sodium 139, Potassium 4.1, Chloride 105, Carbon Dioxide 23.3, Anion Gap 11, BUN 16, Creatinine 0.83, Estim Creat Clear Calc 66.83, Est GFR (MDRD) Non-Af 74, BUN/Creatinine Ratio 19.5, Glucose 112 H, Calcium 9.2, Troponin T High Sens 14, NT pro BNP II 101 09/15/24 13:19: Troponin T Hi Sens 2 Hr 13 Rhythm Strip Rhythm Strip: Sinus Rhythm Rate: 65 Ectopy: None Imaging Radiology Impression Chest CTA 09/15/24 11:05 IMPRESSION: 1. Central RIGHT upper and lower lobe occlusive and nonocclusive pulmonary emboli as detailed. No definite central or definite LEFT-sided pulmonary embolism allowing for limitations. 2. Mild focal ground-glass in the lateral RIGHT lower lobe could reflect a developing pulmonary infarct given the above. Pneumonia/pneumonitis is an additional consideration. 3. Mild mediastinal lymphadenopathy, nonspecific and potentially reactive in the absence of known malignancy. Correlate with medical history and follow-up as indicated. 4. Cholecystectomy with dilatation of the CBD which may be related to post cholecystectomy effect. Correlate with serum bilirubin and consider outpatient MRCP as indicated. 5. Tiny 8 mm peripherally calcified distal splenic artery aneurysm. 6. Additional description as above. IMPRESSION: [place] Alert: Impression #1 and #2 The critical information above was relayed directly by me by telephone to Mariana Clemons on 09/15/2024 at 11:36 am MST with readback verification. Reading Location: [id number] Assessment & Plan Assessment/Plan (1) Pulmonary embolism: PLAN: Plan 1. Pulmonary embolism ? This was provoked from surgery ? She was also having some right calf pain, could be due to right-sided DVT versus surgical pain. Since she will be treated with anticoagulation and given her family history of her half sister dying from a blood clot I do anticipate a longer term of anticoagulation therefore will not obtain a Doppler ultrasound at this time ? Given the lack of dilation of the right ventricle or troponin elevation, will hold off on echo at this time as well. She did have an echo on 06/13/2024 with an EF of 65% and stage I diastolic dysfunction, RVSP of 39 mmHg As she is not requiring any oxygen either at rest or with ambulation ? She was given 10 mg of Eliquis here in the ER, will repeat the dosing tonight at 10 PM, renal function is normal ? She does have a leukocytosis in the absence of pneumonia, this is likely a result of her PE with possible pulmonary infarction in her right lower lobe ? Would benefit from an hematology workup as an outpatient ? Continue with pain management with her home oxycodone and morphine as needed 2. Essential HTN/HLD ? She is hypertensive here in the ER will continue with her home blood pressure medications and make changes as indicated ? This is likely in relation to pain, and her anxiety surrounding her diagnosis ? Will hold her aspirin for the twice daily dosing as she was on as she is on Eliquis now 3. Hypothyroidism ? Stable ? Continue with Synthroid 4. Pancreatic insufficiency/GERD ? Stable ? Continue with Creon and PPI 5. Anxiety/depression ? Stable ? Continue with her home medications 6. Arthritis ? Stable ? Continue with Plaquenil DVT: Eliquis 75 minutes was spent on direct patient care, including documentation as well as chart review and collaboration with colleagues Charges/Coding Visit Charges Inpatient E&M: 52004 Init Hosp L3
[2024-09-15] MEDS: APIXABAN 5 MG TABLET 10 MG PO ×2 (15:03→20:36)
[2024-09-15 16:15] LABS: Troponin T High Sens 4 HR 12 ng/L (<=14)
--- NOTE | 2024-09-15 16:19 | CASEMGMT ---
Addendum entered by Heaven Wolfe 09/15/24 21:32: CM Correction: daughter is staying with patient through the end of October. CRISTOFER Montoya, COLEMAN Original Note: Care Management Face to Face with patient for initial transition planning/care coordination assessment in the ED.? This typewriter operator automatic introduced self and role at [facility]. Patient alert and oriented. Patient willing to participate in assessment and is able to answer all questions appropriately.? Care providers, pharmacy, and demographics verified. Admitting Diagnosis: ??chest pain Other diagnosis history: IBS, pancreatitis, arthritis, thyroid disease, cardiac murmer PCP: ?[facility] Specialists: ?[facility], [facility], [facility] Pref[facility] Insurance: ?[employer] Prescription Benefit: yes Living Will/HPOA: ?Has both LNOK: Angela ren Living Arrangements: ?patients daughter is staying with patient due to recent foot surgery, daughter is staying through August.? 1.5 story home but patient is staying on one floor.? Daughter is assisting in all ADLs and IADLs.? Transportation: ?Daughter is driving patient DME: ?walker, wheelchair, shower bench, bed side commode, grab bars HHC: ?[facility] HH.?? PT 2 x week, OT 1 x per week, Nurse 1 x per week SNF/Rehab: ?none Community Resources: none Behavioral Health History: ?Anxiety and depression, is on Klonopin, Xanax, and Cymbalta Patient goals: Patient wishes to discharge home, denies need for home health care at this time. Patient denies any further needs or concerns at this time. Disposition Plan: admission to acute; RN NATALIE/SW to follow for discharge planning needs that may arise. CRISTOFER Montoya, COLEMAN
[2024-09-15] MEDS: Acetaminophen 500 MG Tablet PO (17:28)
[2024-09-15] MEDS: Creon 12,000 unit DR CapSULE PO (17:33)
[2024-09-15] MEDS: oxyCODONE 5 MG Tablet PO (17:40)
[2024-09-15] MEDS: Gabapentin 300 MG Capsule PO (20:35)
[2024-09-15] MEDS: busPIRone 15 MG TABLET 11.25 MG PO (20:35)
[2024-09-15] MEDS: DULoxetine Hcl 60 MG Capsule PO (20:36)
[2024-09-15] MEDS: Hydroxychloroquine 200 MG Tablet PO (20:38)
[2024-09-15] MEDS: Losartan Potassium 50 MG Tablet PO (20:44)
[2024-09-15] MEDS: clonazePAM 0.5 MG Tablet PO (20:44)
[2024-09-15] MEDS: Morphine 4 MG/ML Syringe IV (20:46)
[2024-09-15 23:44] LABS: Allen Test Positive; Base Excess 13 mmol/L (-2 to +2); Bicarbonate 35.7 mmol/L (22-26); Blood Gas Specimen Type ART; Mode Not entered; O2 Delivery Device Cannula; PO2 90 mmHG (75-100); SITE L Radial; SO2 98 % (95-99); Total Carbon Dioxide 37 mmol/L; pCO2 40.2 mmHg (35-45); pH 7.56 (7.35-7.45)
[2024-09-15] MEDS: Morphine 2 MG/ML Syringe IV (23:51)
[2024-09-16 03:00] VITALS: BP 157/54; PULSE 64; RESP 15; TEMP 35.8; O2SAT 100
[2024-09-16] MEDS: Dicyclomine 10 MG Capsule PO ×2 (06:12→12:01)
[2024-09-16] MEDS: Levothyroxine 100 MCG Tablet PO (06:12)
[2024-09-16] MEDS: Gabapentin 300 MG Capsule PO ×2 (06:12→14:15)
[2024-09-16] MEDS: oxyCODONE 5 MG Tablet PO (06:36)
[2024-09-16 07:35] LABS: Absolute Lymphocyte Count 2.79 X10^3/uL (0.83-4.51); Basophil# 0.02 X10^3/uL; Basophil% 0.2 % (0-1); Eosinophil# 0.09 X10^3/uL; Eosinophils% 0.8 % (0-5); Hematocrit 35.6 % (37-47); Hemoglobin 11.6 g/dL (12.0-15.0); Lymphocyte # 2.79 X10^3/ul (0.83-4.51); Lymphocyte % 23.3 % (19-41); Mean Corp Hgb Conc 32.6 g/dL (32-36); Mean Corpuscular Hgb 28.4 pg (27.0-32.0); Mean Platelet Vol. 11.6 fl (6.2-12.0); Monocyte# 1.02 X10^3/uL; Monocyte% 8.5 % (0-10); NRBC Flagged by Analyzer 0 % (0-5); Neutrophil # 8.01 X10^3/uL (2.7-7.7); Neutrophil % 66.9 % (47-70); Platelet Count 259 K/mm3 (150-450); RBC Distribution Width CV 14.8 % (11.6-14.6); RBC Distribution Width SD 47.9 fl (35.1-43.9); Red Blood Count 4.09 M/mm3 (4.2-5.4)
[2024-09-16 08:00] VITALS: BP 142/53; PULSE 56; RESP 14; TEMP 36.5; O2SAT 100
[2024-09-16] MEDS: Creon 12,000 unit DR CapSULE PO ×2 (08:01→12:00)
[2024-09-16] MEDS: busPIRone 15 MG TABLET 11.25 MG PO (08:01)
[2024-09-16] MEDS: Pantoprazole Sodium 20 MG Tablet PO (08:04)
[2024-09-16] MEDS: APIXABAN 5 MG TABLET 10 MG PO (08:04)
[2024-09-16] MEDS: Losartan Potassium 50 MG Tablet PO (08:10)
[2024-09-16 08:11] LABS: Anion Gap 14 (5-15); BUN 18 mg/dL (4-19); BUN/Creat Ratio 17.3 RATIO (10-20); Calcium,Total 8.9 mg/dL (7.6-11.0); Carbon Dioxide 20.3 mmol/L (21.0-32.0); Chloride 100 mmol/L (98-108); Creatinine, Serum 1.01 mg/dL (0.70-1.20); EST Glomerular Filtration Rate 58 (>60); Estimated Creatinine Clearance 53.97 ml/min (50-250); Glucose 114 mg/dL (70-99); Potassium 4.9 mmol/L (3.3-5.1); Sodium Level 134 mmol/L (133-145)
[2024-09-16 09:00] VITALS: O2SAT 99
--- NOTE | 2024-09-16 09:01 | PN.HOSP_ITS ---
Reason for Visit Reason for Visit: Diagnoses Other pulmonary embolism without acute cor pulmonale (09/15/24) Subjective Subjective Still with MENDOZA. Limited mobility given recent ankle surgery on the right. Objective Data Objective Data Vital Signs: Vital Signs Temp Pulse Resp BP Pulse Ox O2 Del Method O2 Flow Rate 36.5 C L 56 L 14 142/53 H 100 Nasal Cannula 2 09/16/24 08:00 09/16/24 08:00 09/16/24 08:00 09/16/24 08:00 09/16/24 08:00 09/16/24 08:00 09/16/24 08:00 Oxygen Flow Rate (L/min) 2 Oxygen Delivery Method Nasal Cannula Weight: 99 kg Body Mass Index (BMI) 38.6 Lab / Micro Data 09/16/24 07:02 09/16/24 07:02 Labs: Laboratory Results - last 24 hr 09/15/24 11:22: WBC 16.1 H, RBC 4.43, Hgb 12.5, Hct 38.9, MCV 87.8, MCH 28.2, MCHC 32.1, RDW Std Deviation 47.3 H, RDW Coeff of Mikel 14.6, Plt Count 240, MPV 10.9, Immature Gran % (Auto) 0.400, Neut % (Auto) 75.0 H, Lymph % (Auto) 15.7 L, [place] % (Auto) 6.5, Eos % (Auto) 2.1, Baso % (Auto) 0.3, Absolute Neuts (auto) 12.1 H, Absolute Lymphs (auto) 2.52, Nucleated RBC % 0, PT 12.9, INR 1.0, APTT 24.8, Sodium 139, Potassium 4.1, Chloride 105, Carbon Dioxide 23.3, Anion Gap 11, BUN 16, Creatinine 0.83, Estim Creat Clear Calc 66.83, Est GFR (MDRD) Non-Af 74, BUN/Creatinine Ratio 19.5, Glucose 112 H, Calcium 9.2, Troponin T High Sens 14, NT pro BNP II 101 09/15/24 13:19: Troponin T Hi Sens 2 Hr 13 09/15/24 15:06: Troponin T Hi Sens 4Hr 12 09/16/24 07:02: WBC 12.0 H, RBC 4.09 L, Hgb 11.6 L, Hct 35.6 L, MCV 87.0, MCH 28.4, MCHC 32.6, RDW Std Deviation 47.9 H, RDW Coeff of Mikel 14.8 H, Plt Count 259, MPV 11.6, Immature Gran % (Auto) 0.300, Neut % (Auto) 66.9, Lymph % (Auto) 23.3, [place] % (Auto) 8.5, Eos % (Auto) 0.8, Baso % (Auto) 0.2, Absolute Neuts (auto) 8.0 H, Absolute Lymphs (auto) 2.79, Nucleated RBC % 0, Sodium 134, Potassium 4.9, Chloride 100, Carbon Dioxide 20.3 L, Anion Gap 14, BUN 18, Creatinine 1.01, Estim Creat Clear Calc 53.97, Est GFR (MDRD) Non-Af 58 L, BUN/Creatinine Ratio 17.3, Glucose 114 H, Calcium 8.9 ABG Data ABG results: ABG 09/15/24 23:39 Specimen Type ART Sample Site L Radial pH 7.56 H Bicarbonate Actual 35.7 H Total CO2 37 Base Excess 13 H O2 Saturation 98 O2 % 3.0 ABG pCO2 40.2 ABG pO2 90 Figueroa Test Positive O2 Delivery Device Cannula Vent Mode Not entered Radiography Diagnostic Testing: Radiology Impression Chest CTA 09/15/24 11:05 IMPRESSION: 1. Central RIGHT upper and lower lobe occlusive and nonocclusive pulmonary emboli as detailed. No definite central or definite LEFT-sided pulmonary embolism allowing for limitations. 2. Mild focal ground-glass in the lateral RIGHT lower lobe could reflect a developing pulmonary infarct given the above. Pneumonia/pneumonitis is an additional consideration. 3. Mild mediastinal lymphadenopathy, nonspecific and potentially reactive in the absence of known malignancy. Correlate with medical history and follow-up as indicated. 4. Cholecystectomy with dilatation of the CBD which may be related to post cholecystectomy effect. Correlate with serum bilirubin and consider outpatient MRCP as indicated. 5. Tiny 8 mm peripherally calcified distal splenic artery aneurysm. 6. Additional description as above. IMPRESSION: [place] Alert: Impression #1 and #2 The critical information above was relayed directly by me by telephone to Mariana Clemons on 09/15/2024 at 11:36 am MST with readback verification. Reading Location: [facility] Rhythm Strip Rhythm Strip: Sinus Rhythm Rate: 65 Ectopy: None Physical Exam Const alert Constitutional Narrative: up in chair. no respiratory distress. no conversational dyspnea. Extremity Extremity Narrative: right LE edema. Neuro Sensorium / Orientation: awake and alert Assessment & Plan Assessment/Plan (1) Pulmonary embolism: PLAN: Large Right upper and lower lobe occlusive and nonocclusive PE. on apixaban troponins negative Echo shows EF 60% with normal RV size. Pt with MENDOZA, which I explained to her would be expected given the large PE, but reassured that this will improve overtime. I anticipate 6 months of treatment. Though with her family history it may be prudent to check a hypercoagulable work up once she has completed anticoagulation. This was likely provoked given her recent ankle surgery. She was on ASA 81 BID and compliant, but clearly ineffective for preventing this. PLAN: Plan Chronic conditions: * HTN: losartan * hypothyoidism: levothyroxine * Recent ankle surgery: follow up with ortho/podiatry and plastic for the poorly healing wound. VTE prophylaxis: not indicated as already on apixaban.
--- NOTE | 2024-09-16 09:06 | ECHOL_ITS ---
Reason For Study Reason For Study: PULMONARY EMBOLISM Procedure This was a 2D Doppler, Color Flow transthoracic echocardiogram. Exam performed portable in patient room. Left Ventricle Normal LV size. Mild concentric left ventricular hypertrophy. Left ventricular systolic function is normal. The left ventricular ejection fraction is 60 %. No regional wall motion abnormalities noted. Right Ventricle Normal RV size. Normal systolic function. Atria Normal left atrium. Normal right atrium. Mitral Valve Normal mitral valve. Tricuspid Valve Normal tricuspid valve. Pulmonic Valve Normal pulmonic valve. Great Vessels Normal aortic root. Pericardium/Pleural Small (<1.0 cm) pericardial effusion. MMode/2D Measurements & Calculations LVIDd: 4.0 cm IVSd: 1.3 cm Ao root diam: 2.8 cm LVIDs: 2.5 cm LVPWd: 1.3 cm FS: 39.0 % LAV(MOD-sp4): 64.6 ml LVAd ap4: 24.8 cm2 SV(MOD-sp4): 48.8 ml LVLd ap4: 7.0 cm SI(MOD-sp4): 24.3 ml/m2 EDV(MOD-sp4): 72.7 ml EDV(sp4-el): 74.9 ml LVAs ap4: 13.5 cm2 LVLs ap4: 6.2 cm ESV(MOD-sp4): 23.9 ml ESV(sp4-el): 24.6 ml EF(MOD-sp4): 67.1 % EF(sp4-el): 67.1 % SV(sp4-el): 50.3 ml LA dimension(2D): 4.0 cm LA A4 area: 21.6 cm2 RA A4 area: 15.5 cm2 ECHO/Echo, Limited Study Interpretation Summary Normal LV size. Left ventricular systolic function is normal. The left ventricular ejection fraction is 60 %. Small (<1.0 cm) pericardial effusion. Normal RV size. Mild concentric left ventricular hypertrophy. Ordering Physician: José Miguel Carlson Referring Physician: Lobo Newsome Performed By: Kat Hernandez, NANNETTE, RVT
[2024-09-16 11:45] VITALS: O2SAT 95
[2024-09-16 13:00] VITALS: O2SAT 94; O2SAT 97
--- NOTE | 2024-09-16 13:46 | WOUNDNOTE ---
wound photo: right foot (medial)
--- NOTE | 2024-09-16 13:47 | WOUNDNOTE ---
wound photo: right foot (lateral)
--- NOTE | 2024-09-16 13:47 | WOUNDNOTE ---
wound photo: right foot (dorsal)
[2024-09-16 14:13] VITALS: BP 134/43; PULSE 62; RESP 16; TEMP 36.7; O2SAT 95
--- NOTE | 2024-09-16 15:16 | CASEMGMT ---
Met with patient to complete DAMON form. DAMON form explained to patient who voiced understanding and signed form. Original form placed in pt?s chart and copy provided to patient. Ophelia Michelle, Discharge Planning Asst
--- NOTE | 2024-09-16 15:18 | DS.PCM_ITS ---
Providers Date of Admission: 09/15/24 Primary Care Physician: Dr. Lobo Newsome MD Consultations 09/15/24 16:26 Consult: Onc/Wound/recreation facilities supervisor Routine Comment: Reason for Consult:: RLE surgical wound from 08/13/24 Reason For Visit: PE Diagnosis Discharge Diagnosis (1) Pulmonary embolism: Status: Acute Code(s): I26.99 - Other pulmonary embolism without acute cor pulmonale Plan: Large Right upper and lower lobe occlusive and nonocclusive PE. on apixaban troponins negative Echo shows EF 60% with normal RV size. Pt with MENDOZA, which I explained to her would be expected given the large PE, but reassured that this will improve overtime. I anticipate 6 months of treatment. Though with her family history it may be prudent to check a hypercoagulable work up once she has completed anticoagulation. This was likely provoked given her recent ankle surgery. She was on ASA 81 BID and compliant, but clearly ineffective for preventing this. Plan Chronic conditions: * HTN: losartan * hypothyoidism: levothyroxine * Recent ankle surgery: follow up with ortho/podiatry and plastic for the poorly healing wound. VTE prophylaxis: not indicated as already on apixaban. Medications at Discharge Home Medications duloxetine 60 mg capsule,delayed release 60 mg PO QHS 07/29/18 hydroxychloroquine 200 mg tablet (Plaquenil) 200 mg PO QHS arthritis 07/29/18 levothyroxine 100 mcg tablet (Synthroid) 100 mcg PO DAILY 07/29/18 buspirone 7.5 mg tablet 11.25 mg PO BID 11/28/21 dicyclomine 10 mg capsule 10 mg PO TID #90 caps 03/19/24 acetaminophen 500 mg capsule 500 mg PO Q8 PRN fever or pain 05/12/24 cholecalciferol (vitamin D3) 10 mcg (400 unit) capsule 10 mcg PO QDAY 05/12/24 clonazepam 0.5 mg tablet 0.5 mg PO QHS 05/12/24 multivitamin 1 tab PO QDAY 05/12/24 [id number] 36,000-114,000-180,000 unit capsule,delay rel (Creon) See Rx Instructions PO .COMPLEX #320 caps 05/22/24 omeprazole 20 mg capsule,delayed release 20 mg PO DAILY #30 caps 07/01/24 valsartan 160 mg tablet 160 mg PO BID #180 tabs 09/03/24 brexpiprazole 2 mg tablet (Rexulti) 2 mg PO DAILY 09/15/24 cephalexin 500 mg capsule 500 mg PO Q6H 09/15/24 gabapentin 300 mg capsule 300 mg PO TID 09/15/24 oxycodone 5 mg tablet 5 mg PO Q6H PRN pain 09/15/24 psyllium husk 0.52 gram capsule (Daily Fiber) 0.52 g PO DAILY 09/15/24 apixaban 5 mg (74 tabs) tablets in a dose pack See Rx Instructions PO .COMPLEX #74 tabs 09/16/24 Hospital Course Procedures 2-D Echocardiogram Summary of Care Provided Minutes Spent on Discharge: 40 Hospital Course: Patient presents with shortness of breath. CTA of her chest showed a central right upper and lower lobe occlusive and nonocclusive pulmonary emboli. Patient also noted to have a right lower lobe possible developing pulmonary infarct. Patient had normal troponins and had no RV strain on CAT scan. Echocardiogram performed today showed normal LV size. Patient is short of breath with exertion. I explained to her that is a to be expected given her pulmonary embolism. Expressed that with time that that should resolve and her breathing will get better. This pulmonary embolism was likely provoked given her recent ankle surgery though she was taking aspirin 81 twice daily for that. Aspirin will be discontinued and patient will continue with 6 months of apixaban. Though its likely provoked PE she may have a predisposition as she has a family member, her sister, who from a pulmonary embolism. Perhaps a hypercoagulable workup would be advised when she has completed anticoagulation. Weight / BMI Weight Weight: 99 kg Body Mass Index (BMI) 38.6 ABG / Lab / Microbiology Data 09/16/24 07:02 09/16/24 07:02 Laboratory: Laboratory Results - last 24 hr 09/15/24 15:06: Troponin T Hi Sens 4Hr 12 09/16/24 07:02: WBC 12.0 H, RBC 4.09 L, Hgb 11.6 L, Hct 35.6 L, MCV 87.0, MCH 28.4, MCHC 32.6, RDW Std Deviation 47.9 H, RDW Coeff of Mikel 14.8 H, Plt Count 259, MPV 11.6, Immature Gran % (Auto) 0.300, Neut % (Auto) 66.9, Lymph % (Auto) 23.3, [place] % (Auto) 8.5, Eos % (Auto) 0.8, Baso % (Auto) 0.2, Absolute Neuts (auto) 8.0 H, Absolute Lymphs (auto) 2.79, Nucleated RBC % 0, Sodium 134, Potassium 4.9, Chloride 100, Carbon Dioxide 20.3 L, Anion Gap 14, BUN 18, Creatinine 1.01, Estim Creat Clear Calc 53.97, Est GFR (MDRD) Non-Af 58 L, BUN/Creatinine Ratio 17.3, Glucose 114 H, Calcium 8.9 ABG: ABG 09/15/24 23:39 Specimen Type ART Sample Site L Radial pH 7.56 H Bicarbonate Actual 35.7 H Total CO2 37 Base Excess 13 H O2 Saturation 98 O2 % 3.0 ABG pCO2 40.2 ABG pO2 90 Figueroa Test Positive O2 Delivery Device Cannula Vent Mode Not entered Radiography Diagnostic Testing: Radiology Impression Echocardiogram 09/16/24 09:06 Interpretation Summary Normal LV size. Left ventricular systolic function is normal. The left ventricular ejection fraction is 60 %. Small (<1.0 cm) pericardial effusion. Normal RV size. Mild concentric left ventricular hypertrophy. Ordering Physician: José Miguel Carlson Referring Physician: Lobo Newsome Performed By: Kat Hernandez, NANNETTE, RVT D/C Instructions Discharge Diet: No restrictions DC O2, CPAP, BIPAP Needs Home O2 Discharge instructions: No Meaningful Use Info Meaningful Use Meaningful Use Diagnoses (Choose all that apply): None applicable Ischemic Stroke Statin Dosing Therapy Reference: STATIN DOSE THERAPY REFERENCE: * Patients > 75 years receive moderate or high dose statin therapy. * Patients 75 years or YOUNGER should receive HIGH intensity statin dose unless contraindicated. You will be required to document reason for non-treatment if statin daily dose does not meet guidelines. HIGH DOSE STATIN THERAPY DAILY Atorvastatin > than or = to 40 mg Rosuvastatin > than or = to 20 mg Amlodipine + Atorvastatin > than or = to 2.5/40 mg Ezetimibe + Simvastatin 10/80 mg Simvastatin 80mg Discharge Plan Admission Admit Date/Time: 09/15/24 14:48 Primary Reason for Your Visit: Pulmonary embolism Attending Provider: José Miguel Carlson Primary Care Provider: Lobo Newsome Consulting Providers: Stanislav Akers Additional Instructions / Restrictions: With your pulmonary embolism, it will be expected that you will be short of breath with exertion. If that does get worse, notify your physician or return to the emergency room. The treatment for your pulmonary embolism is 6 months of anticoagulation. That anticoagulation will be apixaban (Eliquis). Please follow-up with your surgeons as previously scheduled. Discharge Orders/Prescriptions Prescriptions: New apixaban 5 mg (74 tabs) tablets,dose pack See Rx Instructions .ROUTE .COMPLEX Qty: 74 0RF Rx Instructions: orally per package directions Continued multivitamin Tablet 1 tab PO QDAY clonazepam 0.5 mg tablet 0.5 mg PO QHS Rx Instructions: administer 30 minutes before bedtime acetaminophen 500 mg capsule 500 mg PO Q8 PRN (Reason: fever or pain) cholecalciferol (vitamin D3) 10 mcg (400 unit) capsule 10 mcg PO QDAY levothyroxine [Synthroid] 100 MCG tablet 100 mcg PO DAILY hydroxychloroquine [Plaquenil] 200 MG tablet 200 mg PO QHS duloxetine 60 MG capsule 60 mg PO QHS buspirone 7.5 mg Tablet 11.25 mg PO BID Rexulti 2 mg tablet 2 mg PO DAILY psyllium husk [Daily Fiber] 0.52 gram capsule 0.52 g PO DAILY cephalexin 500 mg capsule 500 mg PO Q6H oxycodone 5 mg tablet 5 mg PO Q6H PRN (Reason: pain) gabapentin 300 mg capsule 300 mg PO TID dicyclomine 10 mg capsule 10 mg PO TID Qty: 90 0RF Creon 36,000-114,000- 180,000 unit capsule,delayed release(DR/EC) See Rx Instructions PO .COMPLEX Qty: 320 5RF Rx Instructions: take 1-2 with snacks and 2-3 with meals K86.81 omeprazole 20 mg capsule,delayed release(DR/EC) 20 mg PO DAILY Qty: 30 3RF valsartan 160 mg tablet 160 mg PO BID Qty: 180 3RF Discontinued meloxicam 15 mg tablet 15 mg PO DAILY aspirin [Adult Low Dose Aspirin] 81 mg tablet,delayed release (DR/EC) 81 mg PO BID Referrals / Follow Up: Lobo Newsome MD [Primary Care Provider] - Within 2 Weeks Disposition Disposition (needs filled in before D/C Order can be placed): Home, Self Care Charges/Coding Visit Charges Inpatient E&M: 53481 Disch Hosp >30min
--- NOTE | 2024-09-16 15:44 | CASEMGMT ---
Patient has order for discharge. Patient is discharging on ARAMIS Jane CM called [facility], $0 copay. ARAMIS ESTRADA in to discuss needs at discharge. Patient states she is active with [facility] and declines additional needs. Patient had no further questions or concerns. ARAMIS ESTRADA called and updated [facility] regarding discharge.
--- NOTE | 2024-09-16 16:57 | PHA.DC_ITS ---
Pharmacy [facility] has performed discharge medication reconciliation and counseling for this patient. The patient's discharge medication list was reviewed for discrepancies and discrepancies were resolved. The patient was counseled on the following discharge medications and changes in medications for homegoing were reviewed. The Reason for Use, instructions for use, and potential side effects were reviewed for all new medications. The patient's questions regarding all of their medications were answered. 1. Apixaban 10 mg PO BID x 7 days, followed by 5 mg PO BID The patient was able to verbally demonstrate an understanding of their discharge medications. Medications at Discharge Home Medications duloxetine 60 mg capsule,delayed release 60 mg PO QHS depression 07/29/18 hydroxychloroquine 200 mg tablet (Plaquenil) 200 mg PO QHS arthritis 07/29/18 levothyroxine 100 mcg tablet (Synthroid) 100 mcg PO DAILY thyroid 07/29/18 buspirone 7.5 mg tablet 11.25 mg PO BID Depression 11/28/21 dicyclomine 10 mg capsule 10 mg PO TID #90 caps 03/19/24 acetaminophen 500 mg capsule 500 mg PO Q8 PRN fever or pain 05/12/24 cholecalciferol (vitamin D3) 10 mcg (400 unit) capsule 10 mcg PO QDAY supplement 05/12/24 clonazepam 0.5 mg tablet 0.5 mg PO QHS sleep 05/12/24 multivitamin 1 tab PO QDAY supplement 05/12/24 [id number]-kyxmaau 36,000-114,000-180,000 unit capsule,delay rel (Creon) See Rx Instructions PO .COMPLEX supplement #320 caps 05/22/24 omeprazole 20 mg capsule,delayed release 20 mg PO DAILY indigestion #30 caps 07/01/24 valsartan 160 mg tablet 160 mg PO BID blood pressure #180 tabs 09/03/24 brexpiprazole 2 mg tablet (Rexulti) 2 mg PO DAILY depression 09/15/24 cephalexin 500 mg capsule 500 mg PO Q6H 09/15/24 gabapentin 300 mg capsule 300 mg PO TID nerve pain 09/15/24 oxycodone 5 mg tablet 5 mg PO Q6H PRN pain 09/15/24 psyllium husk 0.52 gram capsule (Daily Fiber) 0.52 g PO DAILY supplement 09/15/24 apixaban 5 mg (74 tabs) tablets in a dose pack See Rx Instructions PO .COMPLEX #74 tabs 09/16/24
== END 2024-09-16 17:16 | disposition home or self-care (01) ==
LOC: ED 15:37 → PCU 15:51
PROVIDERS: Admitting Provider Family Medicine; Emergency Provider Emergency Medicine; PCP Family Medicine
DX: T81.718A Complication of other artery following a procedure, not elsewhere classified, initial encounter (principal); I26.99 Other pulmonary embolism without acute cor pulmonale; R09.1 Pleurisy; K86.89 Other specified diseases of pancreas; Y83.8 Other surgical procedures as the cause of abnormal reaction of the patient, or of later complication, without mention of misadventure at the time of the procedure; D72.829 Elevated white blood cell count, unspecified; M54.6 Pain in thoracic spine; I10 Essential (primary) hypertension; E78.5 Hyperlipidemia, unspecified; K58.9 Irritable bowel syndrome, unspecified; E03.9 Hypothyroidism, unspecified; R06.09 Other forms of dyspnea; K21.9 Gastro-esophageal reflux disease without esophagitis; F32.A Depression, unspecified; F41.9 Anxiety disorder, unspecified; Z79.82 Long term (current) use of aspirin; Z79.890 Hormone replacement therapy; Z79.899 Other long term (current) drug therapy; Z98.1 Arthrodesis status
CPT/HCPCS: 36415; 36600; 71275; 80048; 82803; 83880; 84484; 85025; 85610; 85730; 93005; 93308; 96374; 96376; 99221; 99285; Q9967; A4216; G0378

== ENCOUNTER → 2024-10-16 | Outpatient (CLI) | payer MEDICARE, SELFPAY ==
[2024-10-16 10:41] LABS: International Normalized Ratio 1.2; Prothrombin Time (Protime)PT. 15.7 SECONDS (11.7-14.9)
[2024-10-16 12:42] LABS: CRP 6.44 mg/L (0.0-3.0)
[2024-10-21 16:09] LABS: Protein C, Functional 135 % (73-180)
== END | disposition home or self-care (01) ==
LOC: LAB 08:11
PROVIDERS: PCP Family Medicine; Referring Provider Family Medicine; Visit Provider Family Medicine
DX: I26.99 Other pulmonary embolism without acute cor pulmonale (principal); Z82.49 Family history of ischemic heart disease and other diseases of the circulatory system
CPT/HCPCS: 36415; 81241; 85303; 85610; 86140

== ENCOUNTER → 2024-10-29 | Outpatient (CLI) | payer MEDICARE, SELFPAY ==
--- NOTE | 2024-10-29 08:23 | RAD_ITS ---
EXAM: XR Abdomen, 1 View CLINICAL INDICATION: CONSTIPATION TECHNIQUE: Frontal supine view of the abdomen/pelvis. COMPARISON: No relevant prior studies available. FINDINGS: GASTROINTESTINAL TRACT: Fecal retention in the colon consistent with constipation. No dilation. BONES/JOINTS: Bilateral hip replacement. No acute fracture. TUBES, LINES AND DEVICES: Right-sided lower neurostimulator. RAD/Abdomen Single View IMPRESSION: Fecal retention in the colon consistent with constipation. Reading Location: [facility]
== END | disposition home or self-care (01) ==
LOC: RAD 08:22
PROVIDERS: PCP Family Medicine; Referring Provider Student in an Organized Health Care Education/Training Program; Visit Provider Student in an Organized Health Care Education/Training Program
DX: K59.00 Constipation, unspecified (principal)
CPT/HCPCS: 74018

== ENCOUNTER → 2024-12-06 | Outpatient (CLI) | payer MEDICARE, SELFPAY ==
--- OUTSIDE RECORDS SUMMARY | 2024-12-06 15:08 | XMS RPT_ITS | CCD ---
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 Gilbert Attending Provider Melissa Dodson Primary Care Provider Unavail able Melissa Dodson Referring Provider Unavailabl e Dr. Vladimir Becerra Attending Provider Dr. Melissa Lopes Primary Care Provider Dr. Theodore Mcdaniel Attending Provider Dr. Delfino Carrillo Referring Provider Melissa Lopes MD Primary Care Provider Shiv Lamar Unavailable [facility] [place] Unavailable Unavailable Moises Tapia Unavailable [phone] Friend Vladimir RUBY Unavailable Theodore Mcdaniel Unavailable Shiv Lamar MD Unavailable Theodore Mcdaniel MD Unavailable Melissa Lopes MD Primary Care Provider Marianne CLEMENT, Melissa Baldwin Primary Care Provider Rajguru POWDER ROOM ATTENDANT.TWISTHAND, Catarina J Unavailable Marianne CLEMENT, Dr. Diamond Primary Care Provider Marianne CLEMENT, Dr. Diamond Referring Provider Lillie Osborne Attending Provider Ilir CLEMENT, Dr. Yi Attending Provider Ilir CLEMENT, Dr. Yi Referring Provider Lillie Osborne Referring Provider Marianne CLEMENT, Dr. Diamond Primary Care Provider Marianne CLEMENT, Dr. Diamond Referring Provider Ilir CLEMENT, Dr. Yi Attending Provider Lillie Osborne Attending Provider Dr. Mariana Clemons DO Emergency Provider Oswald CLEMENT, Dr. Stanislav Loyola Admit Provider Oswald CLEMENT, Dr. Stanislav Loyola Attending Provider Oswald CLEMENT, Dr. Stanislav Loyola Other Provider Dr. José Miguel Carlson DO Attending Provider Oswald CLEMENT, Dr. Stanislav Loyola Attending Provider Dr. José Miguel Carlson DO Other Provider Jonas CLEMENT, Dr. Jaimes Attending Provider Marianne CLEMENT, Dr. Diamond Primary Care Provider Dr. Melissa Lopes MD Referring Provider Marianne CLEMENT, Dr. Diamond Attending Provider MELISSA LOPES Attending Unavailab MELISSA Urbina Primary Care Unavailab MELISSA Urbina Referring Unavailab le MELISSA LOPES Primary Care Unavailab MELISSA Urbina Attending Unavailab MELISSA Urbina Primary Care Unavailab le MELISSA LOPES Attending Unavailab le SELF Referring Unavailable MELISSA LOPES Primary Care Unavailab le MARIANNEMELISSA Attending Unavailab le MARIANNEMELISSA Primary Care Unavailab le MARIANNEMELISSA VICKERS Referring Unavailab le MARIANNE, MELISSA BALDWIN Primary Care Unavailab le Christine CLEMENT, Dr. Diamond Attending Provider MELISSA LOPES Primary Care Unavailab le CONSTANTINE, CATARINA J Attending Unavailable CONSTANTINE, CATARINA J Referring Unavailable MELISSA LOPES Primary Care Unavailab le CONSTANTINE, CATARINA J Attending Unavailable RAJ, CATARINA J Referring Unavailable MELISSA LOPES Primary Care Unavailab le CONSTANTINE, CATARINA J Attending Unavailable MELISSA LOPES Referring Unavailab le MELISSA LOPES Primary Care Unavailab man TESTDORYS PURCELL Attending Unavailable MELISSA LOPES Primary Care Unavailab le MASCSEA Morillo Attending Unavailable MELISSA LOPES Referring Unavailab le MELISSA LOPES Primary Care Unavailab man TESTDORYS PURCELL Attending Unavailable MELISSA LOPES Primary Care Unavailab le MELISSA LOPES Primary Care Unavailab le CONSTANTINE, CATARINA J Attending Unavailable DORYS JADE Attending Unavailable MELISSA LOPES Primary Care Unavailab le KARISHMARU, CATARINA J Attending Unavailable MELISSA LOPES Primary Care Unavailab le RAJGURU, CATARINA J Referring Unavailable MELISSA LOPES Referring Unavailab le MELISSA LOPES Primary Care Unavailab le RAJGURU, CATARINA J Attending Unavailable MELISSA LOPES Primary Care Unavailab le KARISHMARU, CATARINA J Referring Unavailable Melissa Lopes Primary Care Unavailable Friend, Vladimir Consulting Unavailable Friend Vladimir Attending Unavailable Melissa Lopes Referring Unavailable Melissa Lopes Primary Care Unavailable Theodore Mcdaniel Attending Unavailable Kassidy Hazel Attending Unavailable Melissa Lopes Referring Unavailable Marianne, Melissa Primary Care Unavailable Lillie Wu Attending Unavailable Marianne, Melissa Primary Care Unavailable Marianne, Melissa Referring Unavailable AtanasovIvetteLillie Referring Unavailable Lillie Wu Attending Unavailable Marianne, Melissa Primary Care Unavailable Ilir, Kassidy Attending Unavailable Ilir, Kassidy Referring Unavailable Marianne, Melissa Primary Care Unavailable Lillie Wu Attending Unavailable Elginnasov Lillie Referring Unavailable Marianne, Melissa Primary Care Unavailable Marianne, Melissa Primary Care Unavailable José Miguel Carlson Attending Unavailable PaulinosNikosStanislav F Admitting Unavailable Kokendellonis, Stanislav F Consulting Unavailable José Miguel Carlson Consulting Unavailable Nikos Akersolas F Attending Unavailable Cristobaldour, Melissa Attending Unavailable Marianne, Melissa Referring Unavailable Marianne, Melissa Primary Care Unavailable Marianne, Melissa Primary Care Unavailable Lillie Wu Attending Unavailable Marianne, Melissa Referring Unavailable Marianne, Melissa Primary Care Unavailable BILLY, ED1 Attending Unavailable BILLY, ED1 Referring Unavailable Marianne, Melissa Primary Care Unavailable Marianne, Melissa Attending Unavailable Marianne, Melissa Referring Unavailable Ilir, Kassidy Attending Unavailable Ilir, Kassidy Referring Unavailable Marianne, Melissa Primary Care Unavailable Lillie Wu Attending Unavailable Marianne, Melissa Primary Care Unavailable Lillie Wu Referring Unavailable José Miguel Carlson Attending Unavailable Paulinos, Stanislav F Admitting Unavailable Kotsonis, Stanislav F Consulting Unavailable Marianne, Melissa Primary Care Unavailable Marianne, Melissa Primary Care Unavailable Vladimir Becerra Attending Unavailable Marianne, Melissa Referring Unavailable Baddour, Melissa Attending Unavailable Baddour, Melissa Referring Unavailable Marianne, Melissa Primary Care Unavailable Lillie Wu Attending Unavailable Marianne, Melissa Referring Unavailable Marianne, Melissa Primary Care Unavailable ExtenMaricruz L Attending Unavailable Exten, Maricruz L Referring Unavailable Marianne, Melissa Primary Care Unavailable Marianne, Melissa Primary Care Unavailable Marianne, Melissa Referring Unavailable Marianne, Melissa Attending Unavailable Lillie Wu Attending Unavailable Marianne, Melissa Referring Unavailable Marianne, Melissa Primary Care Unavailable Friend, Vladimir Attending Unavailable Marianne, Melissa Referring Unavailable Marianne, Melissa Primary Care Unavailable Ilir, Kassidy Attending Unavailable Marianne, Melissa Referring Unavailable Melissa Lopes Primary Care Unavailable Kassidy Hazel Attending Unavailable Melissa Lopes Primary Care Unavailable Melissa Lopes Referring Unavailable Melissa Lopes Consulting Unavailable Aida Mcclure Attending Unavailable Melissa Lopes Primary Care Unavailable Allergies Allergy Classification Reported Allergen(s) Allergy Type Date of Onset Reaction(s) Facility (1 source) PLANT POLLENS; Translations: [PLANT POLLENS] allergy to substance 4 hay fever - nasal congestion [facility] Work Phone: (1 source) DE-SONE LA INJECTION drug allergy 1 [facility] Work Phone: (1 source) GRASS; Translations: [GRASS] allergy to substance 0 [facility] Work Phone: (1 source) NEWSPAPER PRINT; Translations: [NEWSPAPER PRINT] allergy to substance 0 [facility] Work Phone: (1 source) MAKEUP; Translations: [MAKEUP] allergy to substance 0 [facility] Work Phone: (1 source) DETERGENTS; Translations: [DETERGENTS] allergy to substance 4 swelling, rash, itching [facility] Work Phone: (20 sources) ann marie dishwashing liquid [Other] Propensity to adverse reactions 8 [facility] (20 sources) seasonal [Other] Propensity to adverse reactions 8 [facility] (20 sources) tide detergent [Other] Propensity to adverse reactions 8 [facility] (20 sources) Seasonal allergy; Translations: [SEASONAL ALLERGIES] Allergy to substance 3 Other: See Comments, Unknown [facility] Work Phone: (20 sources) Soap; Translations: [SOAP] Drug Allergy 3 Rash [facility] Work Phone: Comment on above: Ann Marie and Tide specif ically (20 sources) Grass pollen; Translations: [GRASS POLLEN] Propensity to adverse reactions to drug 4 Unknown [facility] (20 sources) house dust allergenic extract; Translations: [HOUSE DUST] Drug Allergy 4 Rash [facility] (20 sources) Tree, [place]; Translations: [TREE, OAK] Allergy to substance 4 Rash [facility] (12 sources) oak; Translations: [OAK] Allergy to substance 4 Other: See Comments [facility] (9 sources) Seasonal Allergies: Uncoded; Translations: [Seasonal Allergies: Uncoded] Allergy to substance 4 nasal congestion [facility] (1 source) house dust allergenic extract Drug Allergy 5 [facility] (1 source) soap Drug allergy (disorder) 5 [facility] Medications Current Medications Medication Drug Class(es) Dates Sig (Normalized) Sig (Original) acetaminophen 500 mg oral capsule (20 sources) Start: 05-12-2024 take 1 capsule by mouth every eight hours as needed for pain Acetaminophen 500 mg capsule Active 500 mg PO EVERY 8 HOURS as needed for fever or pain May 12, 2024 1:00am Start: 06-21-2020 Tylenol Extra Strength 500 mg powder in packet 1-2 tablet every six hours as needed acetaminophen [id number] Inocencia Santoyo LPN Start: 01-26-2020 acetaminophen (TYLENOL) 500 mg tablet Take by mouth every 8 hours as needed. 01/26/2020 Active Comment on above: Take by mouth. apixaban 5 mg oral tablet (20 sources) Factor Xa Inhibitor Start: 09-16-2024 End: 03-29-2025 take 1 tablet by mouth twice daily apixaban (ELIQUIS) 5 mg tab(s) Take 1 tablet by mouth two times a day. 60 tablet 5 09/30/2024 03/29/2025 Active Start: 09-16-2024 End: 11-24-2024 Apixaban 5 mg (74 tabs) tabl ets,dose pack Discontinued 0 PO .COMPLEX 74 September 16, 2024 12:00am November 24, 2024 9:06am orally per package directions Start: 09-16-2024 Apixaban 5 mg (74 tabs) tablets,dose pack Active 0 PO .COMPLEX 74 September 16, 2024 12:00am orally per package directions brexpiprazole 2 mg oral tablet (20 sources) Atypical Antipsychotic Start: 08-05-2024 End: 11-03-2024 take 1 tablet by mouth once daily brexpiprazole (REXULTI) 2 mg tablet Take 1 tablet by mouth once daily. 90 tablet 08/05/2024 Active Start: 07-01-2024 End: 09-29-2024 take 1.5 tablets by mouth once daily brexpiprazole (REXULTI) 1 mg tablet Take 1.5 tablets by mouth once daily. 135 tablet 07/01/2024 08/05/2024 Discontinued Start: 02-04-2024 End: 07-01-2024 take 1 tablet by mouth once daily brexpiprazole (REXULTI) 1 mg tablet Take 1 tablet by mouth once daily. 90 tablet 03/25/2024 07/01/2024 Discontinued Start: 08-21-2023 End: 09-15-2024 take 1 tablet by mouth once daily Brexpiprazole (Rexulti) 0.5 mg tablet Discontinued 0.5 mg PO DAILY January 04, 2024 12:00am September 15, 2024 2:12pm Comment on above: Take 1 tablet by ricki th once daily. busPIRone hydrochloride 7.5 mg oral tablet (20 sources) Start: 04-29-2024 End: 11-03-2024 take 1.5 tablets by mouth twice daily busPIRone (BUSPAR) 7.5 mg tablet Take 1.5 tablets by mouth two times a day. 270 tablet 08/05/2024 11/03/2024 Active Start: 11-28-2021 Buspirone 7.5 mg Tablet Active 11.25 mg PO TWICE A DAY November 28, 2021 12:00am Start: 09-21-2021 End: 04-29-2024 take 1 tablet by mouth twice daily Buspirone 7.5 mg Tablet Active 7.5 mg PO TWICE A DAY November 28, 2021 12:00am Comment on above: Take 1 tablet by ricki th twice daily. 1 tab(s) TAKE 1 TABLET TWICE A DAY Take 1 tablet by ricki th two times a day. cholecalciferol 0.01 mg oral capsule (20 sources) Vitamin D Start: 05-12-20 take 1 capsule by mouth once daily Cholecalciferol (Vitamin D3) 10 mcg (400 unit) capsule Active 10 ug PO daily May 12, 2024 1:00am Start: 12-01-2019 DIALYVITE KAROL MIN D3 MAX 1.25 MG (78377 UT) TABS as directed cholecalciferol (vitamin d3) [id number] Katie Santiago AT cholecalciferol (VITAMIN D3) 400 unit tab once daily. Active cholecalciferol (VITAMIN D3) 400 unit tab 1 tab(s) Active Comment on above: 1 tab(s) clonazePAM 0.5 mg oral tablet (20 sources) Benzodiazepine Start: 01-29-2024 End: 07-31-2024 take 1 tablet by mouth every 30 days at bedtime as needed for anxiety and sleep clonazePAM (KLONOPIN) 0.5 mg tablet Indications: WOLFGANG (generalized anxiety disorder) Take 1 tablet by mouth at bedtime as needed for anxiety (and sleep difficulties) for up to 30 days. 15 tablet 07/01/2024 Active Start: 10-13-2019 End: 05-02-2022 take 1 tablet by mouth once daily as needed for anxiety Clonazepam 0.5 mg Tablet Discontinued 0.5 mg PO DAILY as needed for Anxiety November 28, 2021 12:00am May 02, 2022 6:13pm Start: 10-13-2019 clonazePAM (KL ONOPIN) 0.5 mg tablet Take by mouth. 0 10/13/2019 Active Comment on above: Take 1 tablet by [facility] twice daily as needed for anxiety for up to 30 days. Take by mouth. Take 0.5 mg by mouth once daily as needed for anxiety. DULoxetine 60 mg delayed release oral capsule (20 sources) Serotonin and Norepinephrine Reuptake Inhibitor Start: 02-14-20 End: 10-23-19 take 1 capsule by mouth once daily DULoxetine (CYMBALTA) 30 mg capsule TAKE 1 CAPSULE BY MOUTH ONCE DAILY. TAKE ALONG WITH 60 MG DOSE. 90 capsule 0 08/10/2023 10/23/2023 Discontinued (Side Effects) Start: 10-18-2022 End: 11-17-2022 take 1 capsule by mouth once daily DULoxetine (CYMBALTA) 30 mg capsule Take 1 capsule by mouth once daily. Take with 60 mg dose. 30 capsule 0 10/18/2022 Active Start: 04-26-2022 DULoxetine (CY MBALTA) 60 mg capsule TAKE 2 CAPSULES ONCE DAILY 180 capsule 3 04/26/2022 Active Start: 08-17-2021 End: 02-01-2022 DULoxetine (CYMBALTA) 60 mg capsule TAKE 2 CAPSULES ONCE DAILY 180 capsule 3 02/01/2022 Active Start: 12-01-2019 DULOXETINE HCL 60 MG CPEP 1 capsule twice a day duloxetine [id number] Katie Garciaer AT Start: 07-29-2018 End: 11-24-2024 DULoxetine (CYMBALTA) 60 mg capsule TAKE 1 CAPSULE ONCE DAILY 90 capsule 11/24/2024 Active Start: 07-29-2018 take 120 mg by mouth at bedtim e Duloxetine Active 120 MG PO AT BEDTIME July 29, 2018 12:00am Comment on above: TAKE 2 CAPSULES ONCE DAILY Take 1 capsule by mo ut once daily. Take with 30 mg dose. Take 1 capsule by mo uth once daily. Take with 60 mg dose. TAKE 1 CAPSULE BY MO UTH ONCE DAILY. TAKE ALONG WITH 60 MG DOSE. gabapentin 300 mg oral capsule (20 sources) Anti-epileptic Agent Start: 09-15-2024 take 1 capsule by mouth three times daily Gabapentin 300 mg capsule Active 300 mg PO THREE TIMES A DAY September 15, 2024 12:00am Start: 06-12-2022 End: 01-08-2023 gabapentin (NEURONTIN) 400 m g capsule Start: 11-28-2021 Gabapentin Act jackie 400 MG PO THREE TIMES A DAY November 28, 2021 9:32am one three times a day with Gabapentin 300 mg three times a day Start: 07-12-2021 End: 09-15-2024 take 1 capsule by mouth three times daily Gabapentin 100 mg capsule Discontinued 400 mg PO THREE TIMES A DAY November 28, 2021 10:32am September 15, 2024 2:13pm one three times a day with Gabapentin 300 mg three times a day Start: 12-27-2020 gabapentin (NE URONTIN) 300 mg capsule Take 400 mg by mouth three times daily. 12/27/2020 Active Start: 12-01-2019 GABAPENTIN 400 MG CAPS 1 capsule three times a day gabapentin [id number] Inocencia Santoyo LPN Comment on above: Take 400 mg by mouth three times daily. hydroxychloroquine sulfate 200 mg oral tablet (20 sources) Antimalarial, Antirheumatic Agent Start: 2013 End: 2022 take 1 tablet by mouth once daily hydrOXYchloroQUINE (PLAQUENIL) 200 mg tablet Take 200 mg by mouth once daily. 10/27/2013 Active Comment on above: Take by mouth once d aily. 1 tab(s) hydrOXYzine hydrochloride 10 mg oral tablet (3 sources) Antihistamine Start: 2022 End: 2022 take 2 tablets by mouth every eight hours as needed hydrOXYzine HCl (ATARAX) 10 mg tablet Take 2 tablets by mouth three times daily as needed for anxiety. 90 tablet 0 02/13/2023 03/15/2023 Active Start: 02-07-2023 End: 03-09-2023 take 1 tablet by mouth every eight hours as needed hydrOXYzine HCl (ATARAX) 10 mg tablet TAKE 1 TABLET BY MOUTH THREE TIMES DAILY NEEDED FOR ANXIETY 90 tablet 0 02/07/2023 03/09/2023 Active Comment on above: TAKE 1 TABLET BY RICKI THREE TIMES DAILY NEEDED FOR ANXIETY Take 2 tablets by mo [facility] three times daily as needed for anxiety. levothyroxine sodium 0.1 mg oral tablet (20 sources) l-Thyroxine Start: End: take 1 tablet by mouth once daily levothyroxine (SYNTHROID) 100 mcg tablet Take 1 tablet by mouth once daily. 90 tablet 3 07/28/2024 Active Start: 02-07-2008 levothyroxine sodium(SYNTHROID 50 MCG TAB) Take one(1) tablet daily. 0 02/07/2008 Active Comment on above: Take one(1) tablet d aily. Take 1 tablet by ricki th once daily. linaclotide 0.072 mg oral capsule (4 sources) Guanylate Cyclase-C Agonist Start: 11-06-2024 take 2 capsules by mouth once daily LINZESS 72 mcg capsule Take 2 capsules by mouth once daily. 11/06/2024 Active Start: 11-06-2024 take 1 capsule by mo uth once daily in the morning Linaclotide (Linzess) 72 mcg capsule Active 72 ug PO EVERY MORNING November 06, 2024 12:00am multivitamin tablet (20 sources) Start: 04-26-2022 take 1 tablet by mouth once daily multivitamin tablet Take 1 tablet by mouth once daily. 04/26/2022 Active Start: 04-26-2022 take 1 tablet by ricki th once daily multivitamin tablet Take 1 tablet by mouth once daily. 0 04/26/2022 Active Comment on above: Take 1 tablet by ricki th once daily. Multivitamin tablet (8 sources) Start: 4 Multivitamin tablet Active 1 {tbl} PO daily May 12, 2024 1:00am psyllium 520 mg oral capsule (17 sources) Start: 5 psyllium Husk 0.52 gram capsule Take 0.52 g by mouth once daily. 09/15/2024 Active valsartan 160 mg oral tablet (20 sources) Angiotensin 2 Receptor Jessi Start: take 1 tablet by mouth twice daily Valsartan 160 mg tablet Active 160 mg PO TWICE A DAY 180 September 03, 2024 1:28pm Start: 05-15-2024 End: 09-03-2024 take 1 tablet by mouth once daily Valsartan 160 mg tablet Discontinued 160 mg PO daily May 15, 2024 1:00am September 03, 2024 1:29pm vitamin b12 0.25 mg oral tablet (20 sources) Vitamin B12 End: 04-01-2024 Cyanocobalamin 250 mcg tab 1 tab(s) 04/01/2024 Discontinued (Discontinued by Patient) Comment on above: 1 tab(s) Completed/Discontinued Medications Medication Drug Class(es) Dates Sig (Normalized) Sig (Original) amylase 070739 unt / lipase 40211 unt / protease 288471 unt delayed release oral capsule (20 sources) Start: 08-16-2022 End: 05-22-2024 Fpbcmv-Wflpfoqb-Bqhr ase (Creon) 36,000-114,000- 180,000 unit capsule,delayed release(DR/EC) Discontinued 0 PO .COMPLEX 320 August 27, 2023 8:19am May 22, 2024 11:50am take 1-2 with snacks and 2-3 with meals K86.81 take [id number] ca psules by mouth three times daily at mealtime ebrrhb-tmwyvpiv-rtupryy (CREON) 36,000-1 14,000- 180,000 unit delayed release capsule Take by mouth three times daily with meals. Active Comment on above: Take by mouth three times daily with meals. aspirin 81 mg delayed release oral tablet (20 sources) Platelet Aggregation Inhibitor, Nonsteroidal Anti-inflammatory Drug Start: 09-15-2024 End: 09-16-2024 Aspirin (Adult Low Dose Aspirin) 81 mg tablet,delayed release (DR/EC) Discontinued 81 mg PO TWICE A DAY September 15, 2024 12:00am September 16, 2024 3:21pm Start: 08-14-2024 End: 10-06-2024 take 1 tablet by mouth every twelve hours aspirin, enteric coated (ASPIRIN, ENTERIC COATED) 81 mg EC tablet Take 1 tablet by mouth every 12 hours. 08/14/2024 10/06/2024 Discontinued (Course of therapy completed) calcipotriene 0.13714 mg/mg topical ointment (14 sources) Vitamin D Analog Start: 04-18-2023 End: 10-23-2023 calcipotriene (DOVONEX) 0.005 % oint cephalexin 500 mg oral capsule (20 sources) Cephalosporin Antibacterial Start: 08-28-2024 End: 11-24-2024 take 1 capsule by mouth every six hours Cephalexin 500 mg capsule Discontinued 500 mg PO EVERY 6 HOURS September 15, 2024 12:00am November 24, 2024 9:06am Cholestyramine Resin (20 sources) Bile Acid Sequestrant Start: 01-31-2024 End: 09-15-2024 take 1 dose by mouth once daily Cholestyramine (With Sugar) 4 gram powder Discontinued 4 g PO DAILY 348.6 January 31, 2024 11:38am September 15, 2024 2:16pm administer w/meal; avoid other meds within 1hr before or 4-6hr after dose Start: 01-31-2024 take 1 dose by mouth once daily Cholestyramine (With Sugar) 4 gram powder Active 4 g PO DAILY 348.6 January 31, 2024 11:38am administer w/meal; avoid other meds within 1hr before or 4-6hr after dose Start: 12-18-2023 End: 01-31-2024 take 1 dose by mouth once daily Cholestyramine (With Sugar) 4 gram powder Discontinued 4 g PO DAILY December 18, 2023 9:41am January 31, 2024 11:38am administer w/meal; avoid other meds within 1hr before or 4-6hr after dose Start: 03-13-2023 End: 03-25-2024 take 1 dose by mouth twice daily Cholestyramine (With Sugar) 4 gram powder Discontinued 4 g PO TWICE A DAY 378 September 26, 2023 10:07am December 18, 2023 9:42am administer w/meal; avoid other meds within 1hr before or 4-6hr after dose Start: 02-23-2023 End: 05-17-2023 take 1 dose by mouth twice daily Cholestyramine (With Sugar) 4 gram powder Discontinued 4 g PO TWICE A DAY 378 February 23, 2023 12:00am May 17, 2023 6:05pm administer w/meal; avoid other meds within 1hr before or 4-6hr after dose Start: 02-23-2023 End: 05-17-2023 take 1 dose by mouth twice daily Cholestyramine (With Sugar) Discontinued 4 GM PO TWICE A DAY 378 February 22, 2023 11:00pm May 17, 2023 5:05pm administer w/meal; avoid other meds within 1hr before or 4-6hr after dose CHOLESTYRAMINE, BULK, MISC (20 sources) Start: 02-23-2023 End: 03-25-2024 CHOLESTYRAMINE, BULK, MISC T elmer by mouth. 02/23/2023 03/25/2024 Discontinued (Course of therapy completed) Start: 02-23-2023 CHOLESTYRAMINE , BULK, MISC Take by mouth. 02/23/2023 Active Start: 02-23-2023 CHOLESTYRAMINE , BULK, MISC Take by mouth. 0 02/23/2023 Active Comment on above: Take by mouth. collagenase 0.25 unt/mg topical ointment (10 sources) Collagen-specific Enzyme Start: 10-05-19 End: 12-04-19 SANTYL ointment 10/04/2024 12/03/2024 Discontinued dicyclomine hydrochloride 10 mg oral capsule (20 sources) Anticholinergic Start: 11-30-19 End: 03-19-20 take 1 capsule by mouth three times daily Dicyclomine 10 mg capsule Discontinued 10 mg PO THREE TIMES A DAY 90 November 30, 2023 4:10pm March 19, 2024 9:50am Start: 02-23-2023 End: 12-03-2024 dicyclomine (BENTYL) 10 mg c apsule three times a day. 02/23/2023 12/03/2024 Discontinued docusate sodium 100 mg oral capsule (15 sources) Start: 08-14-2024 End: 10-06-2024 take 1 capsule by mouth twice daily as needed for constipation docusate sodium (COLACE) 100 mg capsule TAKE 1 CAPSULE BY MOUTH TWICE DAILY NEEDED FOR CONSTIPATION FOR 7 DAYS 08/14/2024 10/06/2024 Discontinued (Course of therapy completed) lamoTRIgine 100 mg oral tablet (20 sources) Mood Stabilizer, Anti-epilept ic Agent Start: 05-15-2023 End: 03-25-2024 take 1 tablet by mouth once daily lamoTRIgine (LAMICTAL) 200 mg tablet Take 1 tablet by mouth once daily. 90 tablet 10/23/2023 03/25/2024 Discontinued (Course of therapy completed) Start: 02-13-2023 End: 05-26-2023 take 1 tablet by mouth once daily lamoTRIgine (LAMICTAL) 150 mg tablet Take 1 tablet by mouth once daily. 30 tablet 1 03/27/2023 05/15/2023 Discontinued Start: 09-21-2021 End: 09-15-2024 take 1 tablet by mouth once daily Lamotrigine 100 mg Tablet Discontinued 100 mg PO DAILY November 28, 2021 12:00am September 15, 2024 2:15pm Start: 08-17-2021 End: 09-21-2021 take 1 tablet by mouth once daily, then take 2 tablets by mouth once daily lamoTRIgine (LAMICTAL) 25 mg tablet Take 1 tablet by mouth once daily for 14 days, THEN 2 tablets once daily. 74 tablet 0 08/17/2021 09/21/2021 Discontinued (Course of therapy completed) Comment on above: Take 1 tablet by ricki th once daily. Take 1 tablet by ricki th once daily for 14 days, THEN 2 tablets once daily. TAKE 1 TABLET DAILY lubiprostone 0.008 mg oral capsule (11 sources) Chloride Channel Activator Start: 08-26-19 End: 12-18-19 take 1 capsule by mouth once daily Lubiprostone 8 mcg capsule Discontinued 8 ug PO DAILY August 25, 2022 12:00am December 18, 2023 9:40am meloxicam 15 mg oral tablet (20 sources) Nonsteroidal Anti-inflammatory Drug Start: 10-22-19 End: 10-01-19 take 1 tablet by mouth once daily Meloxicam 15 mg tablet Discontinued 15 mg PO DAILY December 18, 2023 12:00am September 16, 2024 3:22pm mirtazapine 15 mg oral tablet (20 sources) Start: 02-14-20 End: 08-13-19 take 1 tablet by mouth once daily at bedtime Mirtazapine (REMERON) 7.5 mg tablet Take 1 tablet by mouth daily at bedtime. 90 tablet 0 05/15/2023 07/18/2023 Discontinued (Other) Start: 10-18-2022 End: 01-16-2023 take 0.5 tablet by mouth once daily at bedtime, then take 0.5 tablet by mouth once daily at bedtime mirtazapine (REMERON) 15 mg tablet Take 0.5 tablets by mouth daily at bedtime. TAKE ONE-HALF (1/2) TABLET DAILY AT BEDTIME. 45 tablet 1 10/18/2022 Active Start: 09-01-2022 mirtazapine (R EMERON) 15 mg tablet TAKE ONE-HALF (1/2) TABLET DAILY AT BEDTIME 45 tablet 3 09/01/2022 Active Start: 02-01-2022 End: 07-25-2022 take 0.5 tablet by mouth once daily at bedtime mirtazapine (REMERON) 15 mg tablet Take 0.5 tablets by mouth daily at bedtime. 45 tablet 0 04/26/2022 Active Start: 11-01-2020 End: 05-12-2024 take 15 mg by mouth at bedtime Start: 11-01-2020 take 1 tablet by ricki th once daily MIRTAZAPINE 15 MG TBDP 1 tablet by mouth once a day mirtazapine [id number] Katie Santiago AT Comment on above: Take 1 tablet by ricki th daily at bedtime. Take 0.5 tablets by mouth daily at bedtime. TAKE ONE-HALF (1/2) TABLET DAILY AT BEDTIME Take 0.5 tablets by mouth daily at bedtime. TAKE ONE-HALF (1/2) TABLET DAILY AT BEDTIME. Take 1 tablet by ricki th daily at bedtime. TAKE ONE-HALF (1/2) TABLET DAILY AT BEDTIME. MULTIPLE VITAMINS-MINERALS (1 source) Start: 12-01-19 MULTIVITAMIN ADULT TABS 2 tablet once a day MULTIPLE VITAMINS-MINERALS Katie Santiago AT omeprazole 20 mg delayed release oral capsule (20 sources) Proton Pump Inhibitor Start: 02-08-20 End: 11-07-19 take 1 capsule by mouth once daily Omeprazole 20 mg capsule,delayed release(DR/EC) Discontinued 20 mg PO DAILY November 04, 2024 4:54pm November 06, 2024 3:09pm ondansetron 4 mg disintegrating oral tablet (15 sources) Serotonin-3 Receptor Antagonist Start: 01-05-20 End: 06-03-20 take 1 tablet by mouth every eight hours as needed for nausea Ondansetron 4 MG tablet Discontinued 4 mg PO EVERY 8 HOURS NEEDED as needed for Nausea January 05, 2020 12:00am June 03, 2020 9:41am oxyCODONE hydrochloride 5 mg oral tablet (20 sources) Opioid Agonist Start: 08-22-19 End: 10-30-19 take 1 tablet by mouth every six hours as needed for pain Oxycodone 5 mg tablet Discontinued 5 mg PO EVERY 6 HOURS as needed for pain September 15, 2024 12:00am October 29, 2024 7:54am Sod Sulf-Pot Chloride-Mag Sulf (8 sources) Start: 12-18-19 End: 05-12-20 take 1 tablet by mouth once Sod Sulf-Pot Chloride-Mag Sulf (Sutab) 1.479-0.188- 0.225 gram tablet Discontinued 12 {tbl} PO per package directions December 18, 2023 12:00am May 12, 2024 12:14pm PO PER PKG DIR Day 1 Swallow 12 tablets with the first 16 ounces of water Day 2 Swallow 12 tablets with another 16 ounces of water Problems Active Problems Problem Classification Problem Date Documented Da te Episodic/Chronic Anxiety disorders (13 sources) Generalized anxiety disorder; Translations: [Generalized anxiety disorder] Onset: 4 Chronic Complications of surgical procedures or medical care (20 sources) Dehiscence of surgical wound; Translations: [Disruption of internal operation (surgical) wound, not elsewhere classified, initial encounter] 03-14-2019 Episodic Diabetes mellitus without complication (1 source) Hyperglycemia, unspecified; Translations: [Hyperglycemia, unspecified] Onset: 5 Episodic Diseases of white blood cells (7 sources) Leukocytosis; Translations: [Elevated white blood cell count, unspecified] 09-15-2024 Chronic Disorders of lipid metabolism (10 sources) Dyslipidemia; Translations: [Hyperlipidemia, unspecified] Onset: 4 05-15-2024 Chronic E Codes: Fall (1 source) Accidental fall ; Translations: [Fall (on) (from) other stairs and steps, initial encounter] 04-01-2024 Episodic Essential hypertension (20 sources) Essential hypertension; Translations: [Essential (primary) hypertension] Onset: 4 08-03-2024 Chronic Fracture of lower limb (2 sources) Closed fracture of right ankle; Translations: [Other fracture of right lower leg, sequela] Onset: 5 12-03-2024 Episodic Headache; including migraine (15 sources) Headache; Translations: [Headache] 01-06-2020 Episodic Mood disorders (20 sources) Recurrent major depressive episodes, moderate ; Translations: [Major depressive disorder, recurrent, moderate] Onset: 9 Chronic Mycoses (9 sources) Onychomycosis; Translations: [Tinea unguium] Onset: 5 Episodic Nonspecific chest pain (1 source) Chest pain, unspecified; Translations: [Chest pain, unspecified] Onset: 5 Episodic Osteoarthritis (20 sources) Osteoarthritis of joint of right shoulder region; Translations: [Primary osteoarthritis, right shoulder] Onset: 7 04-06-2021 Chronic Other connective tissue disease (1 source) History of repair of hip joint; Translations: [Presence of right artificial hip joint] Onset: 0 04-23-2020 Chronic Other connective tissue disease (1 source) History of total hip arthroplasty; Translations: [Presence of left artificial hip joint] Onset: 9 11-13-2018 Chronic Other connective tissue disease (20 sources) History of total knee arthroplasty; Translations: [Presence of left artificial knee joint] Onset: 9 08-21-2018 Chronic Other connective tissue disease (20 sources) Hip joint prosthesis present; Translations: [Presence of left artificial hip joint] Onset: 9 07-03-2022 Chronic Other connective tissue disease (7 sources) Pain of toe of left foot; Translations: [Pain in left toe(s)] Episodic Other connective tissue disease (7 sources) Pain of toe of right foot; Translations: [Pain in right toe(s)] Episodic Other connective tissue disease (2 sources) Swelling of lower limb; Translations: [Other specified soft tissue disorders] 12-03-2024 Episodic Other connective tissue disease (1 source) Other specified soft tissue disorders; Translations: [Leg swelling] Onset: 5 Episodic Other connective tissue disease (1 source) Pain in left toe(s); Translations: [Pain in toe of left foot] Onset: 5 Episodic Other connective tissue disease (1 source) Pain in right toe(s); Translations: [Pain in toe of right foot] Onset: 5 Episodic Other gastrointestinal disorders (20 sources) Irritable bowel syndrome; Translations: [Irritable bowel syndrome without diarrhea] Onset: 9 09-11-2008 Chronic Other gastrointestinal disorders (17 sources) Irritable bowel syndrome with diarrhea; Translations: [Irritable bowel syndrome with diarrhea] 08-16-2023 Chronic Other gastrointestinal disorders (1 source) Irritable bowel syndrome with diarrhea; Translations: [Irritable bowel syndrome with diarrhea] Onset: 4 Chronic Other gastrointestinal disorders (1 source) History of irritable bowel syndrome; Translations: [Personal history of other diseases of the digestive system] Episodic Other gastrointestinal disorders (12 sources) Constipation alternates with diarrhea; Translations: [Other specified symptoms and signs involving the digestive system and abdomen] 07-28-2022 Episodic Other gastrointestinal disorders (3 sources) Other specified symptoms and signs involving the digestive system and abdomen; Translations: [Other symptoms involving digestive system] 07-28-2022 Episodic Other gastrointestinal disorders (9 sources) Small bowel bacterial overgrowth syndrome; Translations: [Small intestinal bacterial overgrowth (SIBO)] 11-16-2022 Episodic Other gastrointestinal disorders (14 sources) Constipation; Translations: [Constipation, unspecified] 11-16-2022 Episodic Other gastrointestinal disorders (8 sources) Loose stool; Translations: [Other fecal abnormalities] 10-29-2024 Episodic Other gastrointestinal disorders (1 source) Constipation, unspecified; Translations: [Constipation, unspecified] Onset: 5 Episodic Other hereditary and degenerative nervous system conditions (1 source) Medication-induced postural tremor; Translations: [Drug-induced tremor] 04-01-2024 Chronic Other lower respiratory disease (9 sources) Dyspnea on exertion; Translations: [Other forms of dyspnea] 05-15-2024 Episodic Other nervous system disorders (3 sources) Polyneuropathy, unspecified; Translations: [POLYNEUROPATHY UNSPECIFIED] Onset: 1 Chronic Other nervous system disorders (1 source) Peripheral nerve disease ; Translations: [Polyneuropathy, unspecified] Onset: 1 11-10-2020 Chronic Other nervous system disorders (1 source) Lesion of ulnar nerve, left upper limb; Translations: [Lesion of ulnar nerve] Onset: 8 02-07-2018 Chronic Other nervous system disorders (1 source) Carpal tunnel syndrome, right upper limb; Translations: [Carpal tunnel syndrome] Onset: 7 10-09-2016 Chronic Other nervous system disorders (1 source) Carpal tunnel syndrome, left upper limb; Translations: [Carpal tunnel syndrome] Onset: 7 08-07-2016 Chronic Other nervous system disorders (4 sources) Neuropathy; Translations: [Polyneuropathy, unspecified] 11-24-2024 Chronic Other nervous system disorders (2 sources) Carpal tunnel syndrome; Translations: [Carpal tunnel syndrome, bilateral upper limbs] 11-24-2024 Chronic Other nervous system disorders (1 source) Numbness; Translations: [Anesthesia of skin] Episodic Other nervous system disorders (1 source) Paresthesia; Translations: [Paresthesia of skin] 01-16-2024 Episodic Other nervous system disorders (1 source) Numbness of hand; Translations: [Anesthesia of skin] 01-24-2024 Episodic Other nervous system disorders (2 sources) Other symptoms and signs involving cognitive functions and awareness; Translations: [Other signs and symptoms involving cognition] 04-01-2024 Episodic Other nervous system disorders (2 sources) Tremor; Translations: [Tremor, unspecified] 11-24-2024 Episodic Other non-traumatic joint disorders (20 sources) Bilateral rotator cuff arthropathy of shoulder; Translations: [Other specific arthropathies, not elsewhere classified, right shoulder] Onset: 1 07-03-2022 Chronic Other nutritional; endocrine; and metabolic disorders (1 source) Body mass index 30+ - obesity; Translations: [Obesity, unspecified] Onset: 5 03-29-2015 Chronic Other nutritional; endocrine; and metabolic disorders (9 sources) Obesity; Translations: [Obesity, unspecified] 05-15-2024 Chronic Other nutritional; endocrine; and metabolic disorders (1 source) Obesity, unspecified; Translations: [Obesity, unspecified] Onset: 4 Chronic Other screening for suspected conditions (not mental disorders or infectious disease) (20 sources) Patient encounter status; Translations: [Encounter for screening for malignant neoplasm of colon] Onset: 5 Episodic Pleurisy; pneumothorax; pulmonary collapse (7 sources) Pleurisy; Translations: [Pleurisy] 09-15-2024 Episodic Pulmonary heart disease (20 sources) Pulmonary infarction; Translations: [Other pulmonary embolism without acute cor pulmonale] Onset: 5 09-15-2024 Episodic Residual codes; unclassified (6 sources) FH: Thrombosis; Translations: [Family history of ischemic heart disease and other diseases of the circulatory system] 10-09-2024 Episodic Residual codes; unclassified (2 sources) Family history of ischemic heart disease and other diseases of the circulatory system; Translations: [Family history of DVT] Onset: 5 Episodic Rheumatoid arthritis and related disease (2 sources) Rheumatoid arthritis; Translations: [Rheumatoid arthritis, unspecified] Onset: 5 11-24-2024 Chronic Spondylosis; intervertebral disc disorders; other back problems (17 sources) Degeneration of lumbar intervertebral disc; Translations: [Other intervertebral disc degeneration, lumbar region] Onset: 7 12-05-2019 Chronic Spondylosis; intervertebral disc disorders; other back problems (20 sources) Stenosis of lumbar vertebral foramen; Translations: [Spinal stenosis, lumbar region without neurogenic claudication] Onset: 7 04-01-2021 Episodic Systemic lupus erythematosus and connective tissue disorders (20 sources) Undifferentiated connective tissue disease; Translations: [Systemic involvement of connective tissue, unspecified] Onset: 3 07-03-2022 Chronic Thyroid disorders (20 sources) Acquired hypothyroidism; Translations: [Hypothyroidism, unspecified] Onset: 4 01-15-2023 Chronic Thyroid disorders (8 sources) Disorder of thyroid gland; Translations: [Disorder of thyroid, unspecified] 05-12-2024 Episodic Comment on above: ON MED Unclassified (1 source) NO SHOW Unclassified (1 source) Closed fracture of right ankle 12-03-2024 Past or Other Problems Problem Classification Problem Date Documented Da te Episodic/Chronic Abdominal pain (20 sources) Generalized abdominal pain; Translations: [Generalized abdominal pain] Onset: 09-04-2007 Resolved: 08-03-2024 09-04-2007 Episodic Acquired foot deformities (20 sources) Talipes planus; Translations: [Flat foot [pes planus] (acquired), unspecified foot] Onset: 03-29-2015 03-29-2015 Episodic Administrative/social admission (5 sources) Stress; Translations: [Other specified problems related to psychosocial circumstances] Onset: 07-28-2024 05-05-2024 Episodic E Codes: Adverse effects of medical drugs (2 sources) Adverse reaction to drug; Translations: [Adverse effect of unspecified drugs, medicaments and biological substances, initial encounter] Onset: 03-25-2024 03-25-2024 Episodic Genitourinary symptoms and ill-defined conditions (20 sources) Dysuria; Translations: [Dysuria] Onset: 10-20-2020 07-03-2022 Episodic Heart valve disorders (20 sources) Systolic murmur; Translations: [Cardiac murmur, unspecified] Onset: 03-09-2020 07-03-2022 Episodic Immunizations and screening for infectious disease (20 sources) Contact with and (suspected) exposure to other viral communicable diseases; Translations: [Contact with or suspected exposure to other viral communicable disease] Onset: 07-03-2022 07-03-2022 Episodic Noninfectious gastroenteritis (20 sources) Gastroenteritis; Translations: [Noninfective gastroenteritis and colitis, unspecified] Onset: 07-03-2022 Resolved: 08-03-2024 07-03-2022 Episodic Other aftercare (20 sources) Long-term current use of drug therapy; Translations: [Other jail (current) drug therapy] Onset: 07-03-2022 07-03-2022 Episodic Other aftercare (1 source) Other jail (current) drug therapy; Translations: [Encounter for long-term (current) use of medications] Onset: 08-05-2024 Episodic Other circulatory disease (20 sources) Elevated blood pressure; Translations: [Elevated blood-pressure reading, without diagnosis of hypertension] Onset: 10-07-2018 07-03-2022 Episodic Other connective tissue disease (1 source) Dysfunction of posterior tibial tendon of right foot; Translations: [Posterior tibial tendinitis, right leg] Onset: 04-13-2021 04-13-2021 Episodic Other connective tissue disease (1 source) Other synovitis and tenosynovitis, left forearm; Translations: [Other tenosynovitis of hand and wrist] Onset: 11-01-2020 11-01-2020 Episodic Other connective tissue disease (1 source) Other synovitis and tenosynovitis, left hand; Translations: [Other tenosynovitis of hand and wrist] Onset: 06-27-2020 06-27-2020 Episodic Other connective tissue disease (1 source) Other synovitis and tenosynovitis, right hand; Translations: [Other tenosynovitis of hand and wrist] Onset: 06-27-2020 06-27-2020 Episodic Other connective tissue disease (20 sources) Gluteal tendinitis; Translations: [Gluteal tendinitis, right hip] Onset: 05-27-2019 05-27-2019 Episodic Other connective tissue disease (1 source) Full thickness rotator cuff tear; Translations: [Complete rotator cuff tear or rupture of right shoulder, not specified as traumatic] Onset: 02-17-2019 02-17-2019 Episodic Other connective tissue disease (1 source) Impingement syndrome of shoulder region; Translations: [Impingement syndrome of right shoulder] Onset: 02-17-2019 02-17-2019 Episodic Other connective tissue disease (1 source) Rotator cuff syndrome; Translations: [Unspecified rotator cuff tear or rupture of left shoulder, not specified as traumatic] Onset: 02-17-2019 02-17-2019 Episodic Other connective tissue disease (1 source) Trochanteric bursitis; Translations: [Trochanteric bursitis, left hip] Onset: 11-29-2016 11-29-2016 Episodic Other connective tissue disease (20 sources) Rotator cuff impingement syndrome; Translations: [Impingement syndrome of unspecified shoulder] Onset: 07-03-2022 07-03-2022 Episodic Other connective tissue disease (20 sources) Bursitis of hip; Translations: [Trochanteric bursitis, unspecified hip] Onset: 11-29-2016 07-03-2022 Episodic Other connective tissue disease (20 sources) Disorder of rotator cuff; Translations: [Unspecified rotator cuff tear or rupture of unspecified shoulder, not specified as traumatic] Onset: 02-17-2019 07-03-2022 Episodic Other gastrointestinal disorders (1 source) Other fecal abnormalities; Translations: [Other fecal abnormalities] Onset: 08-31-2024 Episodic Other lower respiratory disease (20 sources) Chronic cough; Translations: [Chronic cough] Onset: 03-07-2018 07-03-2022 Episodic Other lower respiratory disease (1 source) Other forms of dyspnea; Translations: [Other forms of dyspnea] Onset: 07-05-2024 Episodic Other nervous system disorders (20 sources) Impairment of balance; Translations: [Other abnormalities of gait and mobility] Onset: 08-22-2017 07-03-2022 Episodic Other nervous system disorders (1 source) Paresthesia of skin; Translations: [Paresthesia] Onset: 01-16-2024 Episodic Other nervous system disorders (2 sources) Anesthesia of skin; Translations: [Anesthesia of skin] Onset: 04-23-2024 Episodic Other non-traumatic joint disorders (20 sources) Swelling of upper limb; Translations: [Effusion, left wrist] Onset: 09-15-2019 09-15-2019 Episodic Other non-traumatic joint disorders (20 sources) Pain in wrist; Translations: [Pain in left wrist] Onset: 09-15-2019 09-15-2019 Episodic Other non-traumatic joint disorders (2 sources) Knee pain; Translations: [Pain in left knee] Onset: 08-21-2018 08-21-2018 Episodic Pancreatic disorders (not diabetes) (20 sources) Exocrine pancreatic insufficiency; Translations: [Exocrine pancreatic insufficiency] Onset: 08-03-2024 08-03-2024 Episodic Residual codes; unclassified (20 sources) H/O Spinal surgery; Translations: [Other specified postprocedural states] Onset: 01-02-2020 01-02-2020 Episodic Screening and history of mental health and substance abuse codes (1 source) Encounter for screening examination for other mental health and behavioral disorders; Translations: [Encounter for screening examination for other mental health and behavioral disorders] Onset: 07-28-2024 Episodic Skin and subcutaneous tissue infections (1 source) Cellulitis of right toe; Translations: [Onychia and paronychia of toe] Onset: 06-21-2020 06-21-2020 Episodic Unclassified (1 source) Problem Unclassified (1 source) Patient encounter status 08-03-2024 Results Test Name Value Interpretation Reference Range Facility [facility] 12-03-2024 CNOVS Visit (SP) Office (HEMAWS) -------- ABEL LYLES I ([id number]) 1950 F Date Time Provider Department 12/03/24 1:00 PM SEA CHADWICK During your visit today, we recorded the following information about you: Temperature Pulse Blood pressure Weight 98.5 degrees 53/minute 114/68 103 kg Height 1.58 m Sea Chadwick DO 12/03/2024 1:48 PM Signed Patient referred by Dr. 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 HPI: The patient is a 74-year-old female with a past medical history as outlined below. Had right ankle fusion surgery on 08/13/2024 at the [facility]. She was on low-dose, 81 mg aspirin twice daily since then when she presented to the ED. That morning she developed pain under her right breast. It was somewhat worse with breathing and hurt particularly with coughing. She had a nonproductive cough. Presented to [facility] ED 09/15/2024 for chest pain. CTA demonstrated a limited exam due to suboptimal opacification of the pulmonary arterial tree but she was identified to have right sided pulmonary emboli extending from the right mainstem bronchus (likely crap game box person error--personally reviewed CT images and there is clot visible within the right main pulmonary artery) into the upper lobe branches appearing occlusive in these locations. Nonocclusive and occlusive pulmonary bullae were also observed in the right lower lobar pulmonary artery and extending into segmental subsegmental branches. Report simply reads left sided pulmonary embolism allowing for limitations. There was an approximate 13 mm short axis subcarinal lymph node that was difficult to delineate from adjacent esophagus. I also note small pleural effusion on the right. No US legs. She had laboratory testing for hypercoagulable disorder. 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 This was performed at [facility] and their normal reference range was 57-163%. C-reactive protein was 6.44 mg/L. (Reference range 0 to 3.0 mg/L). An echocardiogram was performed on 09/16/2024. It demonstrated normal RV size and systolic function. The left ventricle was of normal size. There was mild concentric LVH. Estimated ejection fraction was 60%. No regional wall motion abnormalities. There was a small less than 1 cm pericardial effusion observed. No valvular abnormalities. Anticoagulated with apixaban. Chest pain resolved. No unusual bleeding. No chronic cough or wheezing. No dyspnea. Has IBS and is currently on Linzess. Many colonoscopies. Most recent 12/2023. Report reviewed. Most recent mammogram 07/2024. Breasts noted to be almost entirely fatty. Still in rigid boot right foot. Diagnosed with an undifferentiated CTD. Sees Dr. Miller at [facility]. On hydroxychloroquine. No history smoking. Mother and father were heavy smokers. PAST MEDICAL HISTORY Diagnosis Date Hypothyroidism PMH - PAST MEDICAL HISTORY OF tension headaches PMH - PAST MEDICAL HISTORY OF tension in shoulders PMH - PAST MEDICAL HISTORY OF pancreatitis PMH - PAST MEDICAL HISTORY OF ibs PMH - PAST MEDICAL HISTORY OF chronic epigastric pain PMH - PAST MEDICAL HISTORY OF reset broken nose PMH - PAST MEDICAL HISTORY OF arthritis PMH - PAST MEDICAL HISTORY OF depression Seasonal allergies PAST SURGICAL HISTORY Procedure Laterality Date ANKLE SURGERY HX Right 08/13/2024 FUSED 3 JOINTS ARTHRP KNE CONDYLEANDPLATU MEDIALANDLAT COMPARTMENTS Knee replacement, total, both knee's PAST SURGICAL HISTORY OF cholecystecomy PAST SURGICAL HISTORY OF stent in sphincter of ode PAST SURGICAL HISTORY OF tubal ligation PAST SURGICAL HISTORY OF right foot bunion surgery LINZESS 72 mcg capsule Take 1 capsule by mouth once daily. DULoxetine (CYMBALTA) 60 mg capsule TAKE 1 CAPSULE ONCE DAILY psyllium Husk 0.52 gram capsule 0.52 g. SANTYL ointment apixaban (ELIQUIS) 5 mg tab(s) Take 1 tablet by mouth two times a day. brexpiprazole (REXULTI) 2 mg tablet Take 1 tablet by mouth once daily. valsartan (DIOVAN) 160 mg tablet Take 1 tablet by mouth two times a day. levothyroxine (SYNTHROID) 100 mcg tablet Take 1 tablet by mouth once daily. clonazePAM (KLONOPIN) 0.5 mg tablet Take 1 tablet by mouth at bedtime as needed for anxiety (and sleep difficulties) for up to 30 days. omeprazole (PRILOSEC) 20 mg capsule Take 20 mg by mouth once daily. dicyclomine (BENTYL) 10 mg capsule three times a day. jafydw-vrkwhmlh-pkkzmaf (CREON) 36,000-114,000- 180,000 unit delayed release capsule Take by mouth three times daily with meals. hydrOXYchloroQUINE (PLAQUENIL) 200 mg tablet once daily. cholecalciferol (VITAMIN D3) 400 unit tab once daily. multivitamin tablet Take 1 tablet by mouth once daily. acetaminophen (TYLENOL) 500 mg tablet Take by mouth every 8 hours as needed. gabapentin (NEURONTIN) 300 mg capsule Take 400 mg by ricki (more content not included)... Normal [facility] CNOVon 12-01-2024 CNOV Office Visit (PODIWS ) -------- ABEL LYLES I ([id number]) 1950 F Date Time Provider Department 12/01/24 3:30 PM DORYS JADE During your visit today, we recorded the following information about you: Beatriz Wei RN 12/02/2024 8:03 AM Signed Patient presents with: Left Foot - Established Patient, Follow Up, nail care Right Foot - Established Patient, Follow Up, nail care Patient presents for 3 month follow up nail care. Patient had right ankle surgery 08/13/24 (3 ankle joints fused and tendons tightened). Wearing tall pneumatic boot to the right foot. Still has some swelling to the foot, will be starting outpatient PT soon for it. Ambulatory with walker. MALISSA 08/29/24 Dorys Jade 12/02/2024 8:03 AM Signed Subjective: Patient presents to clinic c/o painful toenails. They state that the nails are especially painful with shoe gear and pressure. Patient states that nails 1 b/l are painful. No other pedal complaints at this time. Patient states no change in medications or medical history since last visit. Objective: Patient presents to clinic ambulating in boot right and sneakers left Vasc: DP and PT pulses are palpable bilateral. CFT is less than 5 seconds bilateral. Skin temperature is warm to cool proximal to distal bilateral. There is mild edema or varicosities noted. Neuro: Protective sensation is intact to the foot and toes when tested with the 5.07 SWM bilateral. Vibratory sensation is decreased at the hallux IPJ bilateral. The hallux is downgoing bilateral. Derm: Nails 1-5 b/l are painful, incurvated, discolored-yellow, thick, crumbly, dystrophic and with subungal debris. Skin is of normal turgor, texture and hair growth is present bilateral. There are no hyperkeratosis, ulcerations, scars, verruca or other lesions noted. Assessment: (B35.1) Onychomycosis (primary encounter diagnosis) (M79.675) Pain in toe of left foot (M79.674) Pain in toe of right foot Plan: Patient was seen and evaluated. Nails 1-5 bilateral were debrided in length and thickness. Patient is to RTC in 3-4 months. Dorys Jade DPM Allergies As of Date: 12/01/2024 Noted Allergy Reaction OAK 05/15/2024 14 - Other: See Comments SOAP 05/15/2023 2 - Rash Comments: With Ann Marie and Tide specifically. Date Reviewed: 12/01/2024 Reviewed by: Beatriz Wei RN - Fully Assessed Reason for Visit: Established Patient [175] Follow Up [171] nail care [Other] Established Patient [175] Follow Up [171] nail care [Other] Primary Visit Diagnosis:Onychomycosis [B35.1] Other Visit Diagnoses:Pain in toe of left foot [M79.675] Pain in toe of right foot [M79.674] Prescriptions as of 12/02/2024 - LINZESS 72 mcg capsule Take 1 capsule by mouth once daily. - DULoxetine (CYMBALTA) 60 mg capsule TAKE 1 CAPSULE ONCE DAILY - psyllium Husk 0.52 gram capsule 0.52 g. - SANTYL ointment - apixaban (ELIQUIS) 5 mg tab(s) Take 1 tablet by mouth two times a day. - brexpiprazole (REXULTI) 2 mg tablet Take 1 tablet by mouth once daily. - valsartan (DIOVAN) 160 mg tablet Take 1 tablet by mouth two times a day. - levothyroxine (SYNTHROID) 100 mcg tablet Take 1 tablet by mouth once daily. - clonazePAM (KLONOPIN) 0.5 mg tablet Take 1 tablet by mouth at bedtime as needed for anxiety (and sleep difficulties) for up to 30 days. - omeprazole (PRILOSEC) 20 mg capsule Take 20 mg by mouth once daily. - dicyclomine (BENTYL) 10 mg capsule three times a day. - kcixhx-wxpzvyok-jjsmsqu (CREON) 36,000-114,000- 180,000 unit delayed release capsule Take by mouth three times daily with meals. - hydrOXYchloroQUINE (PLAQUENIL) 200 mg tablet once daily. - cholecalciferol (VITAMIN D3) 400 unit tab once daily. - multivitamin tablet Take 1 tablet by mouth once daily. - acetaminophen (TYLENOL) 500 mg tablet Take by mouth every 8 hours as needed. - gabapentin (NEURONTIN) 300 mg capsule Take 400 mg by mouth three times daily. Problem List As Of Date 12/01/2024 Noted Resolved Abdominal pain, generalized [R10.84] 09/04/2007 08/03/2024 IRRITABLE COLON [K58.9] 09/11/2008 RECURR DEPR PSYCHOS-MOD [F33.1] 09/15/2008 Unilateral primary osteoarthritis of first carp*08/08/2018 Undifferentiated connective tissue disease (HCC*07/03/2022 Systolic murmur [R01.1] 03/09/2020 Swelling of upper extremity [M79.89] 09/15/2019 Spinal stenosis [M48.00] 11/29/2016 Rotator cuff impingement syndrome [M75.40] 07/03/2022 Rotator cuff arthropathy of both shoulders [M12*07/05/2020 Primary osteoarthritis of both hips [M16.0] 02/07/2018 Presence of left artificial hip joint [Z96.642] 03/05/2019 Pes planus [M21.40] 03/29/2015 Pain in wrist [M25.539] 09/15/2019 Other specified abnormal immunological findings*07/03/2022 Trochanteric bursitis [M70.60] 11/29/2016 Balance problems [R26.89] 08/22/2017 Chronic cough [R05.3] 03/07/2018 (more content not included)... Normal [facility] Neurology Visit Reporton Neurology Visit Report [facility] [address] [facility], [address] [place] [address] OFFICE VISIT Date of Service: 11/24/24 MR#: [id number] Acct: [id number] Name: ABEL LYLES Rep #: [id number] : 1950 Provider: Dr. Melissa palacios MD Age/Sex: 74/F Location: [facility] [place]. Status: Signed HPI [facility] Chief Complaint: IBS Details: History: The patient is a 74-year-old right-handed woman with a past medical history of hypertension heart murmur, hypothyroidism, depression, rheumatoid arthritis, osteoarthritis, mixed connective tissue disorder, anxiety, and irritable bowel syndrome who was referred for evaluation of paresthesias in the upper extremities. She now states that she is no longer experiencing paresthesias in the upper extremities however she is experiencing arthritic pain in the hands and also has pain in the elbows when the elbows are bent for extended periods of time. She also has chronic neck pain. She has chronic low back pain; this has diminished with the use of a dorsal column stimulator. She is under the care of a commercial painter and is prescribed gabapentin for her musculoskeletal pain and this has been of benefit. She takes hydroxychloroquine for her rheumatoid arthritis/mixed connective tissue disorder. She had bilateral carpal tunnel surgery prior to 2017 and this was of benefit. Repeat EMG/nerve conduction studies of the upper extremities performed in 2023 reveal severe bilateral carpal tunnel syndrome, right ulnar neuropathy which could not be localized and left C5-C7 chronic cervical radiculopathies. She is not experiencing radicular pain in the upper extremities. She has had weakness in both hands since 2023. She denies having numbness in the hands. She uses acetaminophen for her musculoskeletal pain. She did not wish to take a prescription NSAID. She has had an intermittent tremor with and without action affecting the hands since 2023. This at times interferes with fine motor control of her hands such as using a knife. She has also had a jaw tremor since 2023. She states that Rexulti was initiated in 2023 for depression and anxiety. She takes duloxetine and buspirone for her depression and anxiety and these have been of benefit. She takes clonazepam infrequently for her anxiety. She had right foot surgery in August 2024 for right foot pes planus (flat foot) and is now wearing an orthotic boot. Past Medical History: As above. There is no history of hypertension, hyperlipidemia, lung disease, stroke, seizure, cancer, renal disease, or sleep apnea. Social History: There is no history of smoking tobacco. There is no history of alcohol abuse or illicit drug use. Family History: The patient's brother had a stroke. There is no family history of cerebral aneurysm, seizure, Parkinson's disease, or tremor. Review of Systems: As above. The patient has not had any recent fever, rash, weight change, chest pain, or shortness of breath. She has irritable bowel syndrome. She has depression and anxiety. She denies having insomnia. She has some urinary incontinence. Physical Exam: General: Well-developed, well-nourished female in no acute distress. Neuro: The patient is awake and alert and responds appropriately; speech is fluent; language function is within normal limits Cranial nerves: PERRL, 3mm bilaterally; EOMI; visual felix are full; visual acuity is 20/20 bilaterally; face is symmetrical; tongue is midline; there are no deficits to pinprick Cerebellar system: No nystagmus or dysmetria Deep tendon reflexes: Absent at the ankles, knees, biceps bilaterally, triceps bilaterally, and brachioradialis bilaterally; plantar responses are downward bilaterally Motor: Strength 5/5 in the biceps bilaterally, abductor pollicis brevis muscles bilaterally, first dorsal interosseous muscles bilaterally, triceps bilaterally, deltoid bilaterally quadriceps bilaterally and left foot dorsiflexors; no drift; no tremor is noted at rest or when arms are extended; no rigidity is noted in the wrists; a jaw tremor is noted Sensory: Slightly decreased vibration is noted in the left foot; there are no deficits to pinprick in the feet; there are no deficits to pinprick or soft touch in the hands; there are no deficits soft touch in the left foot Gait: Slow; she ambulates with a right limp HEENT: Normocephalic; atraumatic; tympanic membranes are clear Neck: No bruits Heart: Regular rhythm and rate Extremities: No cyanosis or edema; left dorsalis pedis pulses +2; right foot pedal pulses were not assessed (the patient is wearing an orthotic boot) Supplemental Info EMG/nerve conduction studies of the upper extremities (04/01/2024): Nerve Conduction Studies Summary: Nerve conductions were performed for the bilateral upper extremities. The median-D2 SNAP distal latency was prolonged bilaterally with reduced amplitudes. The ulnar-D5 SN (more content not included)... Normal [facility] 11-13-2024 [facility] Telephone ([employer]) -------- ABEL LYLES I ([id number]) 1950 F Date Time Provider Department 11/13/24 MELISSA LOPES During your visit today, we recorded the following information about you: Marium Mas MA 11/13/2024 1:59 PM Signed Home Health called requesting 1x order for home health visit next week for patient discharge. Mario Frye LPN 11/14/2024 11:57 AM Signed No call back number listed unable to contact Mario Frye LPN November 14, 2024 11:57 AM Allergies As of Date: 11/13/2024 Noted Allergy Reaction SOAP 05/15/2023 2 - Rash Comments: With Ann Marie and Tide specifically. Date Reviewed: 08/29/2024 Reviewed by: Ele Rodríguez LPN - Fully Assessed Reason for Visit: Orders [681] Prescriptions as of 11/14/2024 - psyllium Husk 0.52 gram capsule 0.52 g. - SANTYL ointment - apixaban (ELIQUIS) 5 mg tab(s) Take 1 tablet by mouth two times a day. - brexpiprazole (REXULTI) 2 mg tablet Take 1 tablet by mouth once daily. - DULoxetine (CYMBALTA) 60 mg capsule Take 1 capsule by mouth once daily. - valsartan (DIOVAN) 160 mg tablet Take 1 tablet by mouth two times a day. - levothyroxine (SYNTHROID) 100 mcg tablet Take 1 tablet by mouth once daily. - clonazePAM (KLONOPIN) 0.5 mg tablet Take 1 tablet by mouth at bedtime as needed for anxiety (and sleep difficulties) for up to 30 days. - omeprazole (PRILOSEC) 20 mg capsule Take 20 mg by mouth once daily. - dicyclomine (BENTYL) 10 mg capsule three times a day. - ypliic-pakpmoqx-qsnjqjy (CREON) 36,000-114,000- 180,000 unit delayed release capsule Take by mouth three times daily with meals. - hydrOXYchloroQUINE (PLAQUENIL) 200 mg tablet once daily. - cholecalciferol (VITAMIN D3) 400 unit tab once daily. - multivitamin tablet Take 1 tablet by mouth once daily. - acetaminophen (TYLENOL) 500 mg tablet Take by mouth every 8 hours as needed. - gabapentin (NEURONTIN) 300 mg capsule Take 400 mg by mouth three times daily. Problem List As Of Date 11/13/2024 Noted Resolved Abdominal pain, generalized [R10.84] 09/04/2007 08/03/2024 IRRITABLE COLON [K58.9] 09/11/2008 RECURR DEPR PSYCHOS-MOD [F33.1] 09/15/2008 Unilateral primary osteoarthritis of first carp*08/08/2018 Undifferentiated connective tissue disease (HCC*07/03/2022 Systolic murmur [R01.1] 03/09/2020 Swelling of upper extremity [M79.89] 09/15/2019 Spinal stenosis [M48.00] 11/29/2016 Rotator cuff impingement syndrome [M75.40] 07/03/2022 Rotator cuff arthropathy of both shoulders [M12*07/05/2020 Primary osteoarthritis of both hips [M16.0] 02/07/2018 Presence of left artificial hip joint [Z96.642] 03/05/2019 Pes planus [M21.40] 03/29/2015 Pain in wrist [M25.539] 09/15/2019 Other specified abnormal immunological findings*07/03/2022 Trochanteric bursitis [M70.60] 11/29/2016 Balance problems [R26.89] 08/22/2017 Chronic cough [R05.3] 03/07/2018 Chronic lower back pain [M54.50, G89.29] 07/03/2022 Depression [F32.A] 12/28/2016 Dysuria [R30.0] 10/20/2020 Finding of above normal blood pressure [R03.0] 10/07/2018 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] 12/05/2019 Gluteal tendinitis [M76.00] 05/27/2019 H/O Spinal surgery [Z98.890] 01/02/2020 History of total knee replacement [Z96.659] 08/21/2018 Rotator cuff syndrome [M75.100] 02/17/2019 Inflammation of stomach and intestine [K52.9] 07/03/2022 08/03/2024 Primary localized osteoarthrosis of ankle and f*07/03/2022 senior living current use of therapeutic drug [Z79.*07/03/2022 Osteoarthrosis [M19.90] 12/28/2016 Essential (primary) hypertension [I10] 05/15/2024 Exocrine pancreatic insufficiency [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 2 Normal [facility] Comment on above: Order Comment: [id number] 8TIGER RT 2 BLUE FZ,TALL LAV RT Result Comment: TEST RESULTS LIMITS Venous Thromb. Patients on VKA Homocysteine TEST NOT PERFORMED Homocysteine (875632) testing is temporarily suspended due to reagent backorder. Pending and incoming homocysteine orders will be cancelled. Testing will resume when reagent becomes available; date to be determined. Consider ordering [employer] test code 197023, Homocyst(e)ine, if needed. Reference Range: 5.0 - 15.0 Factor VIII Activity 236 High % FVIII activity can increase in a variety of clinical situations including normal , in samples drawn from patients (particularly children) who are visibly stressed at the time of phlebotomy, as acute phase reactants, or in response to certain drug therapies such as DDAVP. Persistently elevated FVIII activity is a risk factor for venous thrombosis as well as recurrence of venous thrombosis. Risk is graded and increases with the degree of elevation. Although elevated FVIII activity has been identified to cluster within families, a genetic basis for the elevation has not yet been elucidated (Br J Haematol. 2012; 157:653-663). Reference Range: 57 - 163 Antithrombin Activity, Plasma 145 High % An elevated antithrombin activity is of no known clinical significance. Direct Xa inhibitor anticoagulants such as rivaroxaban, apixaban and edoxaban will lead to spuriously elevated antithrombin activity levels possibly masking a deficiency. Reference Range: 7 months and older: 75 - 135 Protein C Antigen 110 % Reference Range: 17 years and older: 60 - 150 Protein S Antigen, Total 112 % Reference Range: 7 months and older: 60 - 150 This test was developed and its performance characteristics determined by [employer]. It has not been cleared or approved by the Food and Drug Administration. Factor VII Antigen 146 % Reference Range: 7 months and older: 60 - 175 Results of this test are for research purposes only per the assay water gas operator. The performance characteristics of this assay have not been established. The result should not be used as a diagnostic procedure without confirmation of the diagnosis by another medically established diagnostic product or procedure. Protein C Ag/FVII Ag Ratio 0.8 ratio Reference Range: 0.5 - 2.2 Results of this test are for research purposes only per the assay water gas operator. The performance characteristics of this assay have not been established. The result should not be used as a diagnostic procedure without confirmation of the diagnosis by another medically established diagnostic product or procedure. Protein S Ag/FVII Ag Ratio 0.8 ratio Reference Range: 0.5 - 2.2 Results of this test are for research purposes only per the assay water gas operator. The performance characteristics of this assay have not been established. The result should not be used as a diagnostic procedure without confirmation of the diagnosis by another medically established diagnostic product or procedure. Act. Prt C Resist w/FV Defic. 2.7 ratio The APCR result may be falsely increased (masking an abnormal, low APCR result) in patients on direct Xa inhibitor (e.g., rivaroxaban, apixaban, edoxaban) or a direct thrombin inhibitor (e.g., dabigatran) anticoagulant therapy due to assay interference by these drugs. Reference Range: 2.2 - 3.5 APTT 25.8 sec This test has not been validated for monitoring unfractionated heparin therapy. aPTT-based therapeutic ranges for unfractionated heparin therapy have not been established. Consider ordering Heparin anti-Xa (unfractionated). Reference Range: 18 years and older: 22.9 - 30.2 APTT 1:1 WORK AND FAMILY LIFE CONSULTANT Testing Not Indicated This test was developed and its performance characteristics determined by [employer]. It has not been cleared or approved by the US Food and Drug Administration. APTT 1:1 Saline Testing Not Indicated This test was developed and its performance characteristics determined by [facility]. It has not been cleared or approved by the [place] Food and Drug Administration. LAC Interpretation A lupus anticoagulant is not detected. All antiphospholipid antibodies evaluated are normal. As antibody titers may fluctuate with time, repeat testing may be indicated. Please contact [employer] [facility] if further clarification is needed. DRVVT Screen Seconds 68.0 High sec Reference Range: <= 47.0 DRVVT Confirm Seconds 56.8 sec DRVVT Ratio 1.1 ratio Reference Range: 0.8 - 1.2 Hexagonal Phospholipid Neutral 5 sec This value is NEGATIVE. This is a qualitative assay and is therefore reported as positive for lupus anticoagulant or negative. The quantitative value is provided as an aid in diagnosis. Reference Range: 0 - 11 Anticardiolipin Ab, IgG <10 GPL Reference Range: Negative: <15 Indeterminate: 15 - 20 Low to medium positive: >20 - 80 High positive: >80 Anticardiolipin Ab, IgM <10 MPL Reference Range (more content not included)... Performed By: #### L 500.2500 #### [facility] [address] [place], [address] Abdomen Single Viewon 2024 Abdomen Single View [facility] Imaging Services [address] [place] [address] Abdomen Single View MR#: [id number] Acct: [id number] Name: ABEL LYLES Rep #: [id number] : 1950 F 74 From: Elliott Hernandez MD PCP: Dr. Melissa Lopes MD Status: REG CLI Study: Abdomen Single View Date of Exam: 10/29/24 Exam# [id number] Ordering Dr: Lillie Wu EXAM: XR Abdomen, 1 View CLINICAL INDICATION: CONSTIPATION TECHNIQUE: Frontal supine view of the abdomen/pelvis. COMPARISON: No relevant prior studies available. FINDINGS: GASTROINTESTINAL TRACT: Fecal retention in the colon consistent with constipation. No dilation. BONES/JOINTS: Bilateral hip replacement. No acute fracture. TUBES, LINES AND DEVICES: Right-sided lower neurostimulator. RAD/Abdomen Single View IMPRESSION: Fecal retention in the colon consistent with constipation. Reading [facility] CC: Dr. 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 Quality Assurance Required: No Accompanied by: Daughter Allergies grass pollen Allergy (Mild, Verified 05/15/24 10:10) Other house dust Allergy (Mild, Verified 05/15/24 10:10) Other oak Allergy (Mild, Verified 05/15/24 10:10) Other Seasonal Allergies: Uncoded Allergy (Mild, Verified 05/15/24 10:10) nasal congestion soap Adverse Reaction (Mild, Verified 05/15/24 10:10) Rash Medications ???Medication ???Instructions ???Recorded ???Confirmed ???Type duloxetine 60 mg capsule,delayed 60 mg PO QHS depression 07/29/18 0 09/16/24 History release hydroxychloroquine 200 mg tablet 200 mg PO QHS arthritis 07/29/18 0 09/15/24 History (Plaquenil) levothyroxine 100 mcg tablet 100 mcg PO DAILY thyroid 07/29/18 10/29/24 History (Synthroid) buspirone 7.5 mg tablet 11.25 mg PO BID Depression 2 09/16/24 History dicyclomine 10 mg capsule 10 mg PO TID #90 caps 03/19/2401/02 Rx acetaminophen 500 mg capsule 500 mg PO Q8 PRN fever or pain 08/0409/15/24 History cholecalciferol (vitamin D3) 10 10 mcg PO QDAY supplement 05/12/24 09/16/24 History mcg (400 unit) capsule clonazepam 0.5 mg tablet 0.5 mg PO QHS sleep 05/12/2409/16 History multivitamin 1 tab PO QDAY supplement 05/12/24 10/29/24 History nrtrnd-pyfsyelw-zqenfrp See Rx Instructions PO .COMPLEX 10/29/24 Rx 36,000-114,000-180,000 unit supplement #320 caps capsule,delay rel (Creon) omeprazole 20 mg capsule,delayed 20 mg PO DAILY indigestion #30 cap s 07/01/24 10/29/24 Rx release valsartan 160 mg tablet 160 mg PO BID blood pressure #180 09/03/24 10/29/24 Rx tabs brexpiprazole 2 mg tablet (Rexulti) 2 mg PO DAILY depression 09/16/24 History cephalexin 500 mg capsule 500 mg PO Q6H 09/15/24 09/15/24 Hi story gabapentin 300 mg capsule 300 mg PO TID nerve pain 09/15/24 10/29/24 History psyllium husk 0.52 gram capsule 0.52 g PO DAILY supplement 5 10/29/24 History (Daily Fiber) apixaban 5 mg (74 tabs) tablets in See Rx Instructions PO .COMPLEX 09/16/24 Rx a dose pack #74 tabs apixaban 5 mg tablet (Eliquis) 5 mg PO BID 10/29/24 10/29/24 Hist ory Patient : No Have you fallen in the past year?: No Nurse's Note: OV 10/29/24 Pt here for f/u and reports diarrhea, abdominal pain, gas and bloating. Pt denies n/v and bloody stools. Pt continues omeprazole, and Creon daily. Continues dicyclomine as needed. [facility] Medical History Irritable bowel syndrome Pancreatitis Tension headache Wears hearing aid Post-menopausal History of steroid therapy Walker as ambulation aid Arthritis Anemia Back pain Difficulty swallowing Diarrhea Wears glasses Depression Anxiety Thyroid disease Unspecified diffuse connective tissue disease Easy bruising History of IBS Non-smoker Shortness of breath on exertion History of echocardiogram Cardiac murmur Hip pain, left Surgical History Hx of surgical procedure History of esophagogastroduodenosco py (EGD) Hx of colonoscopy Hx of thumb surgery History of carpal tunnel surgery of right wrist History of carpal tunnel surgery of left wrist History of cholecystectomy History of cataract extraction History of bunionectomy History of broken nose History of hip replacement History of laminectomy History of knee replacement Family History (Updated 09/15/24 @ 16:32 by Nicole Hu) Mother Oat cell carcinoma of lung Brother Cancer Grandmother Thyroid disorder Uncle Diabetes Sister Pulmonary embolism Social History household members: none number of children: 2 current occupational status: retired Smoking Status: Never smoker Electronic Cigarette Use: not used alcohol intake: current alcohol intake frequency: other details: occasional use substance use type: does not use HPI HPI Chief Complaint: IBS Details: ABEL LYLES, is a 74 F who presents to the office today for f/u. BGI established in 2022 with constipation alternating with loose stools Biochemical workup ESR, LDH, folate, TSH, Vit d1,25, T4, gastrin, GAME, DARIAN, ANCA, SURI comp, celiac, IBD profile without pertinent abnormality.CRP H6.50, Vit B12 H1307, T3 L2.1 Stool lactoferrin (more content not included)... Normal [facility] 10-21-2024 CNPN Telephone (FAMPLA) -------- ABEL LYLES I ([id number]) 1950 F Date Time Provider Department 10/21/24 [facility] your visit today, we recorded the following information about you: Mario Frye LPN 10/21/2024 1:02 PM Signed [facility] informed this nurse that patient was unable to have labs drawn at home, due to type of labs. This nurse phoned patient, patient stated she already had labs completed at [facility] This nurse phoned [facility] and they stated that rest of labs should be done by end of this week, due to being sent to [facility] Mario Frye LPN October 21, 2024 1:02 PM Allergies As of Date: 10/21/2024 Noted Allergy Reaction SOAP 05/15/2023 2 - Rash Comments: With Ann Marie and Tide specifically. Date Reviewed: 08/29/2024 Reviewed by: Ele Rodríguez LPN - Fully Assessed Reason for Visit: Results [95] Prescriptions as of 10/21/2024 - psyllium Husk 0.52 gram capsule 0.52 g. - SANTYL ointment - apixaban (ELIQUIS) 5 mg tab(s) Take 1 tablet by mouth two times a day. - brexpiprazole (REXULTI) 2 mg tablet Take 1 tablet by mouth once daily. - busPIRone (BUSPAR) 7.5 mg tablet Take 1.5 tablets by mouth two times a day. - DULoxetine (CYMBALTA) 60 mg capsule Take 1 capsule by mouth once daily. - valsartan (DIOVAN) 160 mg tablet Take 1 tablet by mouth two times a day. - levothyroxine (SYNTHROID) 100 mcg tablet Take 1 tablet by mouth once daily. - clonazePAM (KLONOPIN) 0.5 mg tablet Take 1 tablet by mouth at bedtime as needed for anxiety (and sleep difficulties) for up to 30 days. - omeprazole (PRILOSEC) 20 mg capsule Take 20 mg by mouth once daily. - dicyclomine (BENTYL) 10 mg capsule three times a day. - irjjhv-mskadgtf-rrhimwq (CREON) 36,000-114,000- 180,000 unit delayed release capsule Take by mouth three times daily with meals. - hydrOXYchloroQUINE (PLAQUENIL) 200 mg tablet once daily. - cholecalciferol (VITAMIN D3) 400 unit tab once daily. - multivitamin tablet Take 1 tablet by mouth once daily. - acetaminophen (TYLENOL) 500 mg tablet Take by mouth every 8 hours as needed. - gabapentin (NEURONTIN) 300 mg capsule Take 400 mg by mouth three times daily. 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.1] 09/15/2008 Unilateral primary osteoarthritis of first carp*08/08/2018 Undifferentiated connective tissue disease (HCC*07/03/2022 Systolic murmur [R01.1] 03/09/2020 Swelling of upper extremity [M79.89] 09/15/2019 Spinal stenosis [M48.00] 11/29/2016 Rotator cuff impingement syndrome [M75.40] 07/03/2022 Rotator cuff arthropathy of both shoulders [M12*07/05/2020 Primary osteoarthritis of both hips [M16.0] 02/07/2018 Presence of left artificial hip joint [Z96.642] 03/05/2019 Pes planus [M21.40] 03/29/2015 Pain in wrist [M25.539] 09/15/2019 Other specified abnormal immunological findings*07/03/2022 Trochanteric bursitis [M70.60] 11/29/2016 Balance problems [R26.89] 08/22/2017 Chronic cough [R05.3] 03/07/2018 Chronic lower back pain [M54.50, G89.29] 07/03/2022 Depression [F32.A] 12/28/2016 Dysuria [R30.0] 10/20/2020 Finding of above normal blood pressure [R03.0] 10/07/2018 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] 12/05/2019 Gluteal tendinitis [M76.00] 05/27/2019 H/O Spinal surgery [Z98.890] 01/02/2020 History of total knee replacement [Z96.659] 08/21/2018 Rotator cuff syndrome [M75.100] 02/17/2019 Inflammation of stomach and intestine [K52.9] 07/03/2022 08/03/2024 Primary localized osteoarthrosis of ankle and f*07/03/2022 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 [facility] Comment on above: Result Comment: Resu lt: c.1601G>A (p.[id number]) - Not Detected This result is not associated with an increased risk for venous thromboembolism. See Additional Clinical Information and Comments. Additional Clinical Information: Venous thromboembolism is a multifactorial disease influenced by genetic, environmental, and circumstantial risk factors. The c.1601G>A (p. Ucu047Nox) variant in the F5 gene, commonly referred to as Factor V Leiden, is a genetic risk factor for venous thromboembolism. Heterozygous carriers of this variant have a 6- to 8-fold increased risk for venous thromboembolism. Individuals homozygous for this variant (ie, with a copy of the variant on each chromosome) have an approximately 80-fold increased risk for venous thromboembolism. Individuals who carry both a c.*97G>A variant in the F2 gene and Factor V Leiden have an approximately 20-fold increased risk for venous thromboembolism. Risks are likely to be even higher in more complex genotype combinations involving the F2 c.*97G>A variant and Factor V Leiden (PMID: [id number]). Additional risk factors include but are not limited to: deficiency of protein C, protein S, or antithrombin III, age, male sex, personal or family history of deep vein thromboembolism, smoking, surgery, prolonged immobilization, malignant neoplasm, tamoxifen treatment, raloxifene treatment, oral contraceptive use, hormone replacement therapy, and . Management of thrombotic risk and thrombotic events should follow established guidelines and fit the clinical circumstance. This result cannot predict the occurrence or recurrence of a thrombotic event. Comment: Genetic counseling is recommended to discuss the potential clinical implications of positive results, as well as recommendations for testing family members. Genetic Coordinators are available for health care providers to discuss results at [phone] [phone] Test Details: Variant Analyzed: c.1601G>A (p. [id number]), referred to as Factor V Leiden Methods/Limitations: DNA analysis of the F5 gene (NM_000130.5) was performed by PCR amplification followed by restriction enzyme analysis. The diagnostic sensitivity is >99%. Results must be combined with clinical information for the most accurate interpretation. Molecular-based testing is highly accurate, but as in any laboratory test, diagnostic errors may occur. False positive or false negative results may occur for reasons that include genetic variants, blood transfusions, bone marrow transplantation, somatic or tissue-specific mosaicism, mislabeled samples, or erroneous representation of family relationships. This test was developed and its performance characteristics determined by [employer]. It has not been cleared or approved by the Food and Drug Administration. References: Aarti Rodriguez, Aury LOMBARDI, Anupam R, Maxx WW, Edy JH; ACMG Professional Practice and Guidelines Committee. Addendum: [employer] consensus statement on factor V Leiden mutation testing. Giovanna Med. 2020Aug 13. doi: 10.1038/u95516-700-27968-c. PMID: 92032207. Mohan MCDONALD. Factor V Leiden Thrombophilia. 1998October 22 (Updated 2017Jun 14). In: Artie MP, Gloria HH, Seven RA, et al., editors. Maryse(R) (Internet). [place]): [facility], [place]; 7419-9434. Available from: https://www.ncbi.nlm.nih.gov/books/YUT9037/ Ja S, Aury LOMBARDI, Mynor X, Bossman B, Angie EB, Betty P, Naldo CS; A[employer] Laboratory Artist Representative Committee. Venous thromboembolism laboratory testing (factor V Leiden and factor II c.*97G>A), 2018 update: a technical standard of the [employer] and [employer] (ACMG). Giovanna Med. 2018 May;20(12):1943-1232. doi: 10.1038/f75707-081-6745-i. Epub 2017Mar 15. PMID: 67051374. Performed By: #### L 500.2500 #### [facility] [address] [place], [address] Reviewed By Comment Normal . [facility] Comment on above: Result Comment: Tech nical Component performed at [facility] [place] Professional Component performed by: Beto Alanis, PhD, [facility] [id number], [facility], [address] [place] [address] Performed By: #### L 500.2500 #### [facility] [address] [place], [address] Protein C, Functionalon 05-1 PROTEIN C,FUNC 135 Normal 73-180 [facility] Comment on above: Result Comment: Perf ormed at: TG - [facility] [address] [place], [place] [id number] Quart[place] Mounter: Alex Somers [facility], Phone: [phone] Performed at: [address] [id number] [employer] Mounter: Magidel Lucas MD, Phone: [phone] Performed By: #### L 500.2500 #### [facility] [address] [place], [address] L3410.9992on 10-17-2024 [facility]. COMMENT Normal . [facility] Comment on above: Order Comment: [id number] 0ANTITHROMBIN ACTIVITY BLUE FZ Result Comment: Test Ordered: [id number] Antithrombin Activity Antithrombin Activity 145 [H ] % BN Reference Range: 75-135 An elevated antithrombin activity is of no known clinical significance. Direct Xa inhibitor anticoagulants such as rivaroxaban, apixaban and edoxaban will lead to spuriously elevated antithrombin activity levels possibly masking a deficiency. Performed at: [address] [id number] [employer] Mounter: Magdiel Lucas MD, Phone: [phone] Performed at: [address] [id number] [employer] Mounter: Shiv Calvin PhD, Phone: [phone] Performed By: #### L 500.2500 #### [facility] [address] [facility] [place], [address] [facility] 10-16-2024 [facility] Telephone (BENIGNOA) -------- ABEL LYLES I ([id number]) 1950 F Date Time Provider Department 10/16/24 MELISSA LOPES During your visit today, we recorded the following information about you: Mario Frye LPN 10/16/2024 8:35 AM Signed Home health nurse phoned office. This nurse attempted to reach patient in regards to new lab orders Message left for patient to phone office Mario Frye LPN October 16, 2024 8:35 AM Mario Frye LPN 10/17/2024 9:03 AM Signed Message left for patient to phone office at earliest convenience in regards to orders. Mario Frye LPN October 17, 2024 9:02 AM Mario Frye LPN 10/20/2024 4:38 PM Signed This nurse spoke with [facility], due to not being able to get ahold of patient. Lab orders sent to [facility] Mario Frye LPN October 20, 2024 4:37 PM Allergies As of Date: 10/16/2024 Noted Allergy Reaction SOAP 05/15/2023 2 - Rash Comments: With Ann Marie and Tide specifically. Date Reviewed: 08/29/2024 Reviewed by: Ele Rodríguez LPN - Fully Assessed Prescriptions as of 10/20/2024 - psyllium Husk 0.52 gram capsule 0.52 g. - SANTYL ointment - apixaban (ELIQUIS) 5 mg tab(s) Take 1 tablet by mouth two times a day. - brexpiprazole (REXULTI) 2 mg tablet Take 1 tablet by mouth once daily. - busPIRone (BUSPAR) 7.5 mg tablet Take 1.5 tablets by mouth two times a day. - DULoxetine (CYMBALTA) 60 mg capsule Take 1 capsule by mouth once daily. - valsartan (DIOVAN) 160 mg tablet Take 1 tablet by mouth two times a day. - levothyroxine (SYNTHROID) 100 mcg tablet Take 1 tablet by mouth once daily. - clonazePAM (KLONOPIN) 0.5 mg tablet Take 1 tablet by mouth at bedtime as needed for anxiety (and sleep difficulties) for up to 30 days. - omeprazole (PRILOSEC) 20 mg capsule Take 20 mg by mouth once daily. - dicyclomine (BENTYL) 10 mg capsule three times a day. - nfjwxb-djwllxef-bjacnsy (CREON) 36,000-114,000- 180,000 unit delayed release capsule Take by mouth three times daily with meals. - hydrOXYchloroQUINE (PLAQUENIL) 200 mg tablet once daily. - cholecalciferol (VITAMIN D3) 400 unit tab once daily. - multivitamin tablet Take 1 tablet by mouth once daily. - acetaminophen (TYLENOL) 500 mg tablet Take by mouth every 8 hours as needed. - gabapentin (NEURONTIN) 300 mg capsule Take 400 mg by mouth three times daily. Problem List As Of Date 10/16/2024 Noted Resolved Abdominal pain, generalized [R10.84] 09/04/2007 08/03/2024 IRRITABLE COLON [K58.9] 09/11/2008 RECURR DEPR PSYCHOS-MOD [F33.1] 09/15/2008 Unilateral primary osteoarthritis of first carp*08/08/2018 Undifferentiated connective tissue disease (HCC*07/03/2022 Systolic murmur [R01.1] 03/09/2020 Swelling of upper extremity [M79.89] 09/15/2019 Spinal stenosis [M48.00] 11/29/2016 Rotator cuff impingement syndrome [M75.40] 07/03/2022 Rotator cuff arthropathy of both shoulders [M12*07/05/2020 Primary osteoarthritis of both hips [M16.0] 02/07/2018 Presence of left artificial hip joint [Z96.642] 03/05/2019 Pes planus [M21.40] 03/29/2015 Pain in wrist [M25.539] 09/15/2019 Other specified abnormal immunological findings*07/03/2022 Trochanteric bursitis [M70.60] 11/29/2016 Balance problems [R26.89] 08/22/2017 Chronic cough [R05.3] 03/07/2018 Chronic lower back pain [M54.50, G89.29] 07/03/2022 Depression [F32.A] 12/28/2016 Dysuria [R30.0] 10/20/2020 Finding of above normal blood pressure [R03.0] 10/07/2018 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] 12/05/2019 Gluteal tendinitis [M76.00] 05/27/2019 H/O Spinal surgery [Z98.890] 01/02/2020 History of total knee replacement [Z96.659] 08/21/2018 Rotator cuff syndrome [M75.100] 02/17/2019 Inflammation of stomach and intestine [K52.9] 07/03/2022 08/03/2024 Primary localized osteoarthrosis of ankle and f*07/03/2022 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 [Z79.*07/03/2022 Osteoarthrosis [M19.90] 12/28/2016 Essential (primary) hypertension [I10] 05/15/2024 Exocrine pancreatic insufficiency [K86.81] 08/03/2024 Acquired hypothyroidism [E03.9] 08/03/2024 Encounter Status:Closed by STEPHANIE FRYE LAUREN on 10/20/24 [facility] CRPon 10-16-2024 C-REACTIVE PROT 6.44 mg/L High 0.0-3.0 [facility] Comment on above: Performed By: #### L 500.2500 #### [facility] [address] [place], [address] Functional protein C measure mentOrdered By: Melissa Lopes on 10-16-2024 Protein C actual/normal Chromogenic method (PPP) [Rel catalytic activity/Vol] 135 % 73-180 [facility] Comment on above: Performed at: [facility] [id number] [place], [place] [id number] Director: Alex Somers [facility], Phone: [phone] at: [facility] [address] [id number] Director: Magdiel Lucas MD, Phone: [phone] International normalized rat io (INR) calculationOrdered By: Melissa Lopes on 10-16-2024 INR Coag (Bld) [Relative time] 1.2 {INR} [facility] Prothrombin Time w/INRon INR Coag (PPP) [Relative time] 1.2 {INR} Normal [facility] Comment on above: Performed By: #### L 500.2500 #### [facility] [address] [place], [address] PT Coag (PPP) [Time] 15.7 s High 11.7-14.9 [facility] Comment on above: Performed By: #### L 500.2500 #### [facility] [place], [address] Prothrombin timeOrdered By: Melissa Lopes on 10-16-2024 PT Coag (PPP) [Time] 15.7 s High 11.7-14.9 [facility] Serum or plasma C reactive p rotein measurement (mass/volume)Ordered By: Melissa Lopes on 10-16-2024 CRP [Mass/Vol] 6.44 mg/L High 0.0-3.0 [facility] CNOVon 10-06-2024 CNOV Office Visit (FAMNMS ) -------- ABEL LYLES I ([id number]) 1950 F Date Time Provider Department 10/06/24 2:00 PM MELISSA LPOES During your visit today, we recorded the following information about you: Temperature Pulse Respiration Blood pressure 98.2 degrees 52/minute 20/minute 126/70 Jean Marie Guzman LPN 10/06/2024 2:08 PM Signed PATIENT IS HERE FOR A HOSPITAL FOLLOW-UP FOR A BLOOD CLOT IN HER UPPER RIGHT LOBE. Jean Marie Guzman LPN October 06, 2024 2:08 PM Melissa Lopes MD 10/09/2024 1:25 PM Signed Annelise Astudillo is a 74-year-old female presenting for follow-up after a recent PE. Pulmonary Embolism: - Recent PE in the right upper lobe, diagnosed after foot surgery. - Initially on anticoagulation in the hospital, but was discontinued upon discharge. - Experienced symptoms two weeks post-discharge, including increased temperature, tachycardia, worsened pain, and SpO2 dropping to 80%. - Currently on Eliquis since 08/30, with 5 refills remaining. - First occurrence of a blood clot. - Family history of PE; sister from a blood clot in the lung, also had phlebitis. - Recent echocardiogram showed an ejection fraction of 60%. - Has undergone multiple surgeries in the past without similar complications. Review of Systems GENERAL: No weight loss, generalized discomfort, or fevers. HEENT: Negative for frequent or significant headaches, no changes in vision or hearing, no nose bleeds or other nasal problems. NECK: Negative for lumps, goiter, pain, or significant neck swelling. RESPIRATORY: Negative for cough, dyspnea, or shortness of breath. CARDIOVASCULAR: Negative for chest pain, leg swelling, congestive heart failure, or palpitations. GI: No nausea, vomiting, diarrhea, heartburn, abdominal pain, blood in stool, or black stool. GENITOURINARY: Negative for dysuria, urinary frequency, or incontinence. MUSCULOSKELETAL: Negative for joint pain or swelling, or muscle pain. No back pain. SKIN: Negative for lesions, rash, and itching. PSYCH: Negative for anxiety or depression. HEMATOLOGY/LYMPHOLOGY: No current bleeding concerns. NEURO: No history of headaches, syncope, paralysis, seizures, or tremors. ENDOCRINE: No history of polydipsia or other endocrine symptoms. PAST SURGICAL HISTORY Procedure Laterality Date ANKLE SURGERY HX Right 08/13/2024 FUSED 3 JOINTS ARTHRP KNE CONDYLEANDPLATU MEDIALANDLAT COMPARTMENTS Knee replacement, total, both knee's PAST SURGICAL HISTORY OF cholecystecomy PAST SURGICAL HISTORY OF stent in sphincter of ode PAST SURGICAL HISTORY OF tubal ligation PAST SURGICAL HISTORY OF right foot bunion surgery PAST MEDICAL HISTORY Diagnosis Date Hypothyroidism PMH - PAST MEDICAL HISTORY OF tension headaches PMH - PAST MEDICAL HISTORY OF tension in shoulders PMH - PAST MEDICAL HISTORY OF pancreatitis PMH - PAST MEDICAL HISTORY OF ibs PMH - PAST MEDICAL HISTORY OF chronic epigastric pain PMH - PAST MEDICAL HISTORY OF reset broken nose PMH - PAST MEDICAL HISTORY OF arthritis PMH - PAST MEDICAL HISTORY OF depression Seasonal allergies FAMILY HISTORY Problem Relation Age of Onset Cancer Mother lung related to smoking None Father unknown GI Brother gallbladder removed GI Brother other brother on disability unknown why Cancer Brother Testicular Thyroid Maternal Grandmother Diabetes Maternal Uncle Diabetes Maternal Uncle Social History Tobacco Use Smoking status: Never Passive exposure: Never Smokeless tobacco: Never Vaping Use Vaping status: Never Used Substance Use Topics Alcohol use: Yes Comment: occassionally Drug use: Never ALLERGIES Allergen Reactions Soap Rash With Ann Marie and Tide specifically. MEDICATIONS: psyllium Husk 0.52 gram capsule 0.52 g. SANTYL ointment apixaban (ELIQUIS) 5 mg tab(s) Take 1 tablet by mouth two times a day. brexpiprazole (REXULTI) 2 mg tablet Take 1 tablet by mouth once daily. busPIRone (BUSPAR) 7.5 mg tablet Take 1.5 tablets by mouth two times a day. DULoxetine (CYMBALTA) 60 mg capsule Take 1 capsule by mouth once daily. valsartan (DIOVAN) 160 mg tablet Take 1 tablet by mouth two times a day. levothyroxine (SYNTHROID) 100 mcg tablet Take 1 tablet by mouth once daily. clonazePAM (KLONOPIN) 0.5 mg tablet Take 1 tablet by mouth at bedtime as needed for anxiety (and sleep difficulties) for up to 30 days. omeprazole (PRILOSEC) 20 mg capsule Take 20 mg by mouth once daily. dicyclomine (BENTYL) 10 mg capsule three times a day. iurxbv-hzhtdxnp-voorhwl (CREON) 36,000-114,000- 180,000 unit delayed release capsule Take by mouth three times daily with meals. hydrOXYchloroQUINE (PLAQUENIL) 200 mg tablet once daily. cholecalciferol (VITAMIN D3) 400 unit tab once daily. multivitamin tablet Take 1 tablet by mouth once daily. acetaminophen (TYLENOL) 500 mg (more content not included)... [facility] 09-26-2024 [facility] Telephone (PSWSTR) -------- ABEL LYLES I ([id number]) 1950 F Date Time Provider Department 09/26/24 CATARINA FITCH PSSTEFANTR During your visit today, we recorded the following information about you: Fatuma Jewell LPN 09/26/2024 2:07 PM Signed Call received from patient stating, the tremors in hands are getting worse. Started several months ago, but is now bothersome. I feel it's from my medicine. Please advise. STEPHANIE Mcclain Nishi J, APRN.TWISTHAND 09/26/2024 2:16 PM Signed Reviewed patient's concern regarding noting tremors in hand. At the last visit in July, we had increased the Rexulti to 2 mg. Please ask the patient to cut the Rexulti tablet in half and take only 1 mg instead of 2 mg. Please let me know if she has any questions. Fatuma Jewell LPN 09/26/2024 4:07 PM Signed Message left for patient to cut rexulti 2 mg tab in half, may need to get a pill cutter from the pharmacy to make this easier. Can call office with any other questions or concerns. Fatuma Jewell LPN Allergies As of Date: 09/26/2024 Noted Allergy Reaction SOAP 05/15/2023 2 - Rash Comments: With Ann Marie and Tide specifically. SEASONAL ALLERGIES 05/15/2023 16 - Unknown Comments: Coughing and congestion GRASS POLLEN 07/18/2023 16 - Unknown HOUSE DUST 01/29/2024 2 - Rash TREE, OAK 01/29/2024 2 - Rash Date Reviewed: 08/29/2024 Reviewed by: Ele Rodríguez LPN - Fully Assessed Prescriptions as of 09/29/2024 - apixaban (ELIQUIS) 5 mg (74 tabs) Apixaban 5 mg (74 tabs) tablets,dose pack Active 0 PO .COMPLEX 74 September 16, 2024 12:00am orally per package directions - docusate sodium (COLACE) 100 mg capsule TAKE 1 CAPSULE BY MOUTH TWICE DAILY NEEDED FOR CONSTIPATION FOR 7 DAYS - oxyCODONE IR (ROXICODONE) 5 mg immediate release tablet Take 5 mg by mouth every 6 hours as needed. - aspirin, enteric coated (ASPIRIN, ENTERIC COATED) 81 mg EC tablet Take 1 tablet by mouth every 12 hours. - cephALEXin (KEFLEX) 500 mg capsule - brexpiprazole (REXULTI) 2 mg tablet Take 1 tablet by mouth once daily. - busPIRone (BUSPAR) 7.5 mg tablet Take 1.5 tablets by mouth two times a day. - DULoxetine (CYMBALTA) 60 mg capsule Take 1 capsule by mouth once daily. - valsartan (DIOVAN) 160 mg tablet Take 1 tablet by mouth two times a day. - levothyroxine (SYNTHROID) 100 mcg tablet Take 1 tablet by mouth once daily. - clonazePAM (KLONOPIN) 0.5 mg tablet Take 1 tablet by mouth at bedtime as needed for anxiety (and sleep difficulties) for up to 30 days. - omeprazole (PRILOSEC) 20 mg capsule Take 20 mg by mouth once daily. - meloxicam (MOBIC) 15 mg tablet Take 15 mg by mouth once daily. - dicyclomine (BENTYL) 10 mg capsule three times a day. - ojrknu-hnzcpuqj-aaamica (CREON) 36,000-114,000- 180,000 unit delayed release capsule Take by mouth three times daily with meals. - hydrOXYchloroQUINE (PLAQUENIL) 200 mg tablet once daily. - cholecalciferol (VITAMIN D3) 400 unit tab once daily. - multivitamin tablet Take 1 tablet by mouth once daily. - acetaminophen (TYLENOL) 500 mg tablet Take by mouth every 8 hours as needed. - gabapentin (NEURONTIN) 300 mg capsule Take 400 mg by mouth three times daily. Problem List As Of Date 09/26/2024 Noted Resolved Abdominal pain, generalized [R10.84] 09/04/2007 08/03/2024 IRRITABLE COLON [K58.9] 09/11/2008 RECURR DEPR PSYCHOS-MOD [F33.1] 09/15/2008 Unilateral primary osteoarthritis of first carp*08/08/2018 Undifferentiated connective tissue disease (HCC*07/03/2022 Systolic murmur [R01.1] 03/09/2020 Swelling of upper extremity [M79.89] 09/15/2019 Spinal stenosis [M48.00] 11/29/2016 Rotator cuff impingement syndrome [M75.40] 07/03/2022 Rotator cuff arthropathy of both shoulders [M12*07/05/2020 Primary osteoarthritis of both hips [M16.0] 02/07/2018 Presence of left artificial hip joint [Z96.642] 03/05/2019 Pes planus [M21.40] 03/29/2015 Pain in wrist [M25.539] 09/15/2019 Other specified abnormal immunological findings*07/03/2022 Trochanteric bursitis [M70.60] 11/29/2016 Balance problems [R26.89] 08/22/2017 Chronic cough [R05.3] 03/07/2018 Chronic lower back pain [M54.50, G89.29] 07/03/2022 Depression [F32.A] 12/28/2016 Dysuria [R30.0] 10/20/2020 Finding of above normal blood pressure [R03.0] 10/07/2018 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] 12/05/2019 Gluteal tendinitis [M76.00] 05/27/2019 H/O Spinal surgery [Z98.890] 01/02/2020 History of total knee replacement [Z96.659] 08/21/2018 Rotator cuff syndrome [M75.100] 02/17/2019 Inflammation of stomach and intestine [K52.9] 07/03/2022 08/03/2024 Primary localized osteoarthrosis of ankle and f*07/03/2022 senior living current use of therapeutic drug [Z79.*07/03/2022 Osteoarthrosis [M19.90] 12/28/2016 Essential (primary) hypertension [I10] 05/15/2024 Exocrine pancreatic insufficiency [K86.81] 08/03/2024 (more content not included)... Normal [facility] 09-24-2024 [facility] Telephone (YOVANNYAstaroS) -------- ABEL LYLES I ([id number]) 1950 F Date Time Provider Department 09/24/24 MELISSA LOPES During your visit today, we recorded the following information about you: Mario Frye LPN 09/24/2024 2:48 PM Signed OT phoned office in regards to elevated BP during visit. BP= 206/81, recheck 185/74, recheck 169/72 Patient had no symptoms during all encounters Mario Frye LPN September 24, 2024 2:48 PM Allergies As of Date: 09/24/2024 Noted Allergy Reaction SOAP 05/15/2023 2 - Rash Comments: With Ann Marie and Tide specifically. SEASONAL ALLERGIES 05/15/2023 16 - Unknown Comments: Coughing and congestion GRASS POLLEN 07/18/2023 16 - Unknown HOUSE DUST 01/29/2024 2 - Rash TREE, OAK 01/29/2024 2 - Rash Date Reviewed: 08/29/2024 Reviewed by: Ele Rodríguez LPN - Fully Assessed Prescriptions as of 09/24/2024 - docusate sodium (COLACE) 100 mg capsule TAKE 1 CAPSULE BY MOUTH TWICE DAILY NEEDED FOR CONSTIPATION FOR 7 DAYS - oxyCODONE IR (ROXICODONE) 5 mg immediate release tablet Take 5 mg by mouth every 6 hours as needed. - aspirin, enteric coated (ASPIRIN, ENTERIC COATED) 81 mg EC tablet Take 1 tablet by mouth every 12 hours. - cephALEXin (KEFLEX) 500 mg capsule - brexpiprazole (REXULTI) 2 mg tablet Take 1 tablet by mouth once daily. - busPIRone (BUSPAR) 7.5 mg tablet Take 1.5 tablets by mouth two times a day. - DULoxetine (CYMBALTA) 60 mg capsule Take 1 capsule by mouth once daily. - valsartan (DIOVAN) 160 mg tablet Take 1 tablet by mouth two times a day. - levothyroxine (SYNTHROID) 100 mcg tablet Take 1 tablet by mouth once daily. - clonazePAM (KLONOPIN) 0.5 mg tablet Take 1 tablet by mouth at bedtime as needed for anxiety (and sleep difficulties) for up to 30 days. - omeprazole (PRILOSEC) 20 mg capsule Take 20 mg by mouth once daily. - meloxicam (MOBIC) 15 mg tablet Take 15 mg by mouth once daily. - dicyclomine (BENTYL) 10 mg capsule three times a day. - jtnrcm-wdomyluu-xtoxlab (CREON) 36,000-114,000- 180,000 unit delayed release capsule Take by mouth three times daily with meals. - hydrOXYchloroQUINE (PLAQUENIL) 200 mg tablet once daily. - cholecalciferol (VITAMIN D3) 400 unit tab once daily. - multivitamin tablet Take 1 tablet by mouth once daily. - acetaminophen (TYLENOL) 500 mg tablet Take by mouth every 8 hours as needed. - gabapentin (NEURONTIN) 300 mg capsule Take 400 mg by mouth three times daily. Problem List As Of Date 09/24/2024 Noted Resolved Abdominal pain, generalized [R10.84] 09/04/2007 08/03/2024 IRRITABLE COLON [K58.9] 09/11/2008 RECURR DEPR PSYCHOS-MOD [F33.1] 09/15/2008 Unilateral primary osteoarthritis of first carp*08/08/2018 Undifferentiated connective tissue disease (HCC*07/03/2022 Systolic murmur [R01.1] 03/09/2020 Swelling of upper extremity [M79.89] 09/15/2019 Spinal stenosis [M48.00] 11/29/2016 Rotator cuff impingement syndrome [M75.40] 07/03/2022 Rotator cuff arthropathy of both shoulders [M12*07/05/2020 Primary osteoarthritis of both hips [M16.0] 02/07/2018 Presence of left artificial hip joint [Z96.642] 03/05/2019 Pes planus [M21.40] 03/29/2015 Pain in wrist [M25.539] 09/15/2019 Other specified abnormal immunological findings*07/03/2022 Trochanteric bursitis [M70.60] 11/29/2016 Balance problems [R26.89] 08/22/2017 Chronic cough [R05.3] 03/07/2018 Chronic lower back pain [M54.50, G89.29] 07/03/2022 Depression [F32.A] 12/28/2016 Dysuria [R30.0] 10/20/2020 Finding of above normal blood pressure [R03.0] 10/07/2018 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] 12/05/2019 Gluteal tendinitis [M76.00] 05/27/2019 H/O Spinal surgery [Z98.890] 01/02/2020 History of total knee replacement [Z96.659] 08/21/2018 Rotator cuff syndrome [M75.100] 02/17/2019 Inflammation of stomach and intestine [K52.9] 07/03/2022 08/03/2024 Primary localized osteoarthrosis of ankle and f*07/03/2022 senior living current use of therapeutic drug [Z79.*07/03/2022 Osteoarthrosis [M19.90] 12/28/2016 Essential (primary) hypertension [I10] 05/15/2024 Exocrine pancreatic insufficiency [K86.81] 08/03/2024 Acquired hypothyroidism [E03.9] 08/03/2024 Encounter Status:Closed by STEPHANIE FRYE LAUREN on 09/24/24 [facility] CNPSoheila 09-17-2024 CNPN Telephone ([employer]) -------- ABEL LYLES I ([id number]) 1950 F Date Time Provider Department 09/17/24 MELISSA LOPES During your visit today, we recorded the following information about you: Mario Frye LPN 09/17/2024 1:52 PM Signed Bobbi from [facility] phoned office to inform patient was in hospital for a PE and discharged on Eliquis. There is an interaction with Meloxicam, Dr. Lopes told this nurse verbally that patient is to stop Meloxicam. This nurse informed Home Health Nurse Mario Frye LPN September 17, 2024 1:52 PM Allergies As of Date: 09/17/2024 Noted Allergy Reaction SOAP 05/15/2023 2 - Rash Comments: With Ann Marie and Tide specifically. SEASONAL ALLERGIES 05/15/2023 16 - Unknown Comments: Coughing and congestion GRASS POLLEN 07/18/2023 16 - Unknown HOUSE DUST 01/29/2024 2 - Rash TREE, OAK 01/29/2024 2 - Rash Date Reviewed: 08/29/2024 Reviewed by: Ele Rodríguez LPN - Fully Assessed Reason for Visit: Patient Update [1234] Prescriptions as of 09/17/2024 - docusate sodium (COLACE) 100 mg capsule TAKE 1 CAPSULE BY MOUTH TWICE DAILY NEEDED FOR CONSTIPATION FOR 7 DAYS - oxyCODONE IR (ROXICODONE) 5 mg immediate release tablet Take 5 mg by mouth every 6 hours as needed. - aspirin, enteric coated (ASPIRIN, ENTERIC COATED) 81 mg EC tablet Take 1 tablet by mouth every 12 hours. - cephALEXin (KEFLEX) 500 mg capsule - brexpiprazole (REXULTI) 2 mg tablet Take 1 tablet by mouth once daily. - busPIRone (BUSPAR) 7.5 mg tablet Take 1.5 tablets by mouth two times a day. - DULoxetine (CYMBALTA) 60 mg capsule Take 1 capsule by mouth once daily. - valsartan (DIOVAN) 160 mg tablet Take 1 tablet by mouth two times a day. - levothyroxine (SYNTHROID) 100 mcg tablet Take 1 tablet by mouth once daily. - clonazePAM (KLONOPIN) 0.5 mg tablet Take 1 tablet by mouth at bedtime as needed for anxiety (and sleep difficulties) for up to 30 days. - omeprazole (PRILOSEC) 20 mg capsule Take 20 mg by mouth once daily. - meloxicam (MOBIC) 15 mg tablet Take 15 mg by mouth once daily. - dicyclomine (BENTYL) 10 mg capsule three times a day. - siheuf-uqxtxoev-jekhoko (CREON) 36,000-114,000- 180,000 unit delayed release capsule Take by mouth three times daily with meals. - hydrOXYchloroQUINE (PLAQUENIL) 200 mg tablet once daily. - cholecalciferol (VITAMIN D3) 400 unit tab once daily. - multivitamin tablet Take 1 tablet by mouth once daily. - acetaminophen (TYLENOL) 500 mg tablet Take by mouth every 8 hours as needed. - gabapentin (NEURONTIN) 300 mg capsule Take 400 mg by mouth three times daily. Problem List As Of Date 09/17/2024 Noted Resolved Abdominal pain, generalized [R10.84] 09/04/2007 08/03/2024 IRRITABLE COLON [K58.9] 09/11/2008 RECURR DEPR PSYCHOS-MOD [F33.1] 09/15/2008 Unilateral primary osteoarthritis of first carp*08/08/2018 Undifferentiated connective tissue disease (HCC*07/03/2022 Systolic murmur [R01.1] 03/09/2020 Swelling of upper extremity [M79.89] 09/15/2019 Spinal stenosis [M48.00] 11/29/2016 Rotator cuff impingement syndrome [M75.40] 07/03/2022 Rotator cuff arthropathy of both shoulders [M12*07/05/2020 Primary osteoarthritis of both hips [M16.0] 02/07/2018 Presence of left artificial hip joint [Z96.642] 03/05/2019 Pes planus [M21.40] 03/29/2015 Pain in wrist [M25.539] 09/15/2019 Other specified abnormal immunological findings*07/03/2022 Trochanteric bursitis [M70.60] 11/29/2016 Balance problems [R26.89] 08/22/2017 Chronic cough [R05.3] 03/07/2018 Chronic lower back pain [M54.50, G89.29] 07/03/2022 Depression [F32.A] 12/28/2016 Dysuria [R30.0] 10/20/2020 Finding of above normal blood pressure [R03.0] 10/07/2018 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] 12/05/2019 Gluteal tendinitis [M76.00] 05/27/2019 H/O Spinal surgery [Z98.890] 01/02/2020 History of total knee replacement [Z96.659] 08/21/2018 Rotator cuff syndrome [M75.100] 02/17/2019 Inflammation of stomach and intestine [K52.9] 07/03/2022 08/03/2024 Primary localized osteoarthrosis of ankle and f*07/03/2022 senior living current use of therapeutic drug [Z79.*07/03/2022 Osteoarthrosis [M19.90] 12/28/2016 Essential (primary) hypertension [I10] 05/15/2024 Exocrine pancreatic insufficiency [K86.81] 08/03/2024 Acquired hypothyroidism [E03.9] 08/03/2024 Encounter Status:Closed by STEPHANIE FRYE LAUREN on 09/17/24 [facility] Absolute lymphocyte countOrd ered By: Stanislav Akers on 09-16-2024 Lymphocytes Auto (Unsp spec) [#/Vol] 2.79 10*3/uL 0.83-4.51 [facility] Absolute neutrophil countOrd ered By: Stanislav Akers on 09-16-2024 Neutrophils (Bld) [#/Vol] 8.0 10*3/uL High 2.0-7.7 [facility] Anion gap in Serum or Plasma Ordered By: Stanislav Akers on 09-16-2024 Anion gap [Moles/Vol] 14 mmol/L - [facility] Automated lymphocyte count a s percentage of total leukocytesOrdered By: Stanislav Akers on 09-16-2024 Lymphocytes/100 WBC Auto (Unsp spec) 23.3 % - [facility] BUN/creatinine ratioOrdered By: Stanislav Akers on 09-16-2024 Urea nitrogen/Creatinine [Mass ratio] 17.3 mg/mg - [facility] Basic Metabolic Profile (BMP )on 09-16-2024 BUN/CRE 17.3 RATIO Normal - [facility] Comment on above: Performed By: #### L 100.0100, L500.2500 #### [facility] [address] [place], [address] Calcium [Mass/Vol] 8.9 mg/dL Normal 7.6-11.0 [facility] Comment on above: Performed By: #### L 100.0100, L500.2500 #### [facility] [address] [place], [address] Chloride [Moles/Vol] 100 mmol/L Normal 98-108 [facility] Comment on above: Performed By: #### L 100.0100, L500.2500 #### [facility] [address] [place], [address] CO2 [Moles/Vol] 20.3 mmol/L Low 21.0-32.0 [facility] Comment on above: Performed By: #### L 100.0100, L500.2500 #### [facility] [address] [place], [address] Creatinine [Mass/Vol] 1.01 mg/dL Normal 0.70-1.20 [facility] Comment on above: Performed By: #### L 100.0100, L500.2500 #### [facility] [address] [place], [address] ECRCL 53.97 ml/min Normal 50-250 [facility] Comment on above: Performed By: #### L 100.0100, L500.2500 #### [facility] [address] [place], [address] GAP 14 Normal 5-15 [facility] Comment on above: Performed By: #### L 100.0100, L500.2500 #### [facility] [address] [place], [address] GFR/1.73 sq M.predicted among non-blacks MDRD (S/P/Bld) [Vol rate/Area] 58 mL/min/{1.73_m2} Low >60 [facility] Comment on above: Result Comment: mL/m in/1.73m2 CKD-EPI Creatinine Equation (2020) Performed By: #### L 100.0100, L500.2500 #### [facility] [address] [place], [address] Glucose [Mass/Vol] 114 mg/dL High 70-99 [facility] Comment on above: Performed By: #### L 100.0100, L500.2500 #### [facility] [address] [place], [address] Potassium [Moles/Vol] 4.9 mmol/L Normal 3.3-5.1 [facility] Comment on above: Result Comment: Hemo lysis present, Results??could be affected. ?? Performed By: #### L 100.0100, L500.2500 #### [facility] [address] [place], [address] Sodium [Moles/Vol] 134 mmol/L Normal 133-145 [facility] Comment on above: Performed By: #### L 100.0100, L500.2500 #### [facility] [address] [place], [address] Urea nitrogen [Mass/Vol] 18 mg/dL Normal 4-19 [facility] Comment on above: Performed By: #### L 100.0100, L500.2500 #### [facility] [address] [place], [address] Basophil percentageOrdered B y: Stanislav Akers on 09-16-2024 Basophils/100 WBC (Bld) 0.2 % 0-1 [facility] CBC W/Diff, Automatedon Absolute Lymph 2.79 X10 3/uL Normal 0.83-4.51 [facility] Comment on above: Performed By: #### L 100.0100, L500.2500 #### [facility] [address] [place], [address] Absolute Neut 8.0 X10 3/uL High 2.0-7.7 [facility] Comment on above: Performed By: #### L 100.0100, L500.2500 #### [facility] [address] [place], [address] Basophils/100 WBC (Bld) 0.2 % Normal 0-1 [facility] Comment on above: Performed By: #### L 100.0100, L500.2500 #### [facility] [address] [place], [address] Eosinophils/100 WBC (Bld) 0.8 % Normal 0-5 [facility] Comment on above: Performed By: #### L 100.0100, L500.2500 #### [facility] [address] [place], [address] Erythrocyte distribution width (RBC) [Ratio] 14.8 % High 11.6-14.6 [facility] Comment on above: Performed By: #### L 100.0100, L500.2500 #### [facility] [address] [place], [address] Hematocrit (Bld) [Volume fraction] 35.6 % Low 37-47 [facility] Comment on above: Performed By: #### L 100.0100, L500.2500 #### [facility] [address] [place], [address] Hemoglobin (Bld) [Mass/Vol] 11.6 g/dL Low 12.0-15.0 [facility] Comment on above: Performed By: #### L 100.0100, L500.2500 #### [facility] [address] [place], [address] IG% 0.300 Normal 0.0-0.9 [facility] Comment on above: Result Comment: IG% - Immature Granulocytes (promyelocytes, myelocytes and metamyelocytes) > 1% indicates that a LEFT SHIFT is Present. Performed By: #### L 100.0100, L500.2500 #### [facility] [address] [place], [address] Lymphocytes/100 WBC (Bld) 23.3 % Normal 19-41 [facility] Comment on above: Performed By: #### L 100.0100, L500.2500 #### [facility] [address] [place], [address] MCH (RBC) [Entitic mass] 28.4 pg Normal 27.0-32.0 [facility] Comment on above: Performed By: #### L 100.0100, L500.2500 #### [facility] [address] [place], [address] MCHC (RBC) [Mass/Vol] 32.6 g/dL Normal 32-36 [facility] Comment on above: Performed By: #### L 100.0100, L500.2500 #### [facility] [address] [place], [address] MCV (RBC) [Entitic vol] 87.0 fL Normal 81-99 [facility] Comment on above: Performed By: #### L 100.0100, L500.2500 #### [facility] [address] [place], [address] Monocytes/100 WBC (Bld) 8.5 % Normal 0-10 [facility] Comment on above: Performed By: #### L 100.0100, L500.2500 #### [facility] [address] [place], [address] Neutrophils/100 WBC (Bld) 66.9 % Normal 47-70 [facility] Comment on above: Performed By: #### L 100.0100, L500.2500 #### [facility] [address] [place], [address] Nucleated RBC (Bld) [#/Vol] 0 10*3/uL Normal 0-5 [facility] Comment on above: Performed By: #### L 100.0100, L500.2500 #### [facility] [address] [place], [address] Platelet mean volume (Bld) [Entitic vol] 11.6 fL Normal 6.2-12.0 [facility] Comment on above: Performed By: #### L 100.0100, L500.2500 #### [facility] [address] [place], [address] Platelets (Bld) [#/Vol] 259 10*3/uL Normal 150-450 [facility] Comment on above: Performed By: #### L 100.0100, L500.2500 #### [facility] [address] [place], [address] RBC (Bld) [#/Vol] 4.09 10*6/uL Low 4.2-5.4 [facility] Comment on above: Performed By: #### L 100.0100, L500.2500 #### [facility] [address] [place], [address] RDW SD 47.9 fl High 35.1-43.9 [facility] Comment on above: Performed By: #### L 100.0100, L500.2500 #### [facility] [address] [place], [address] WBC (Bld) [#/Vol] 12.0 10*3/uL High 4.4-11.0 [facility] Comment on above: Performed By: #### L 100.0100, L500.2500 #### [facility] [address] [place], [address] Carbon dioxide, total [Moles /volume] in Central venous bloodOrdered By: Stanislav Akers on 09-16-2024 CO2 [Moles/Vol] 20.3 mmol/L Low 21.0-32.0 [facility] Chloride assayOrdered By: Ashlee Akers on 09-16-2024 Chloride [Moles/Vol] 100 mmol/L 98-108 [facility] Echo, Limited Studyon 2024 Echo, Limited Study [facility] [address] [place] [address] Echo, Limited Study 09/16/24 0943 MR#: [id number] Acct: [id number] Name: ABEL LYLES Rep #: [id number] : 1950 74 From: Theodore Mcdaniel MD Attending Dr: Dr. José Miguel Carlson DO Status: ADM DARRYL Ordering Dr: José Miguel Carlson DO Date: 09/16/24 Location: U Sex: F C Admitted: 09/15/24 Reason For Study Reason For Study: PULMONARY EMBOLISM Procedure This was a 2D Doppler, Color Flow transthoracic echocardiogram. Exam performed portable in patient room. Left Ventricle Normal LV size. Mild concentric left ventricular hypertrophy. Left ventricular systolic function is normal. The left ventricular ejection fraction is 60 %. No regional wall motion abnormalities noted. Right Ventricle Normal RV size. Normal systolic function. Atria Normal left atrium. Normal right atrium. Mitral Valve Normal mitral valve. Tricuspid Valve Normal tricuspid valve. Pulmonic Valve Normal pulmonic valve. Great Vessels Normal aortic root. Pericardium/Pleural Small (<1.0 cm) pericardial effusion. MMode/2D Measurements Calculations LVIDd: 4.0 cm IVSd: 1.3 cm Ao root diam: 2.8 cm LVIDs: 2.5 cm LVPWd: 1.3 cm FS: 39.0 % _ LAV(MOD-sp4): 64.6 ml LVAd ap4: 24.8 cm2 SV(MOD-sp4): 48.8 ml LVLd ap4: 7.0 cm SI(MOD-sp4): 24.3 ml/m2 EDV(MOD-sp4): 72.7 ml EDV(sp4-el): 74.9 ml LVAs ap4: 13.5 cm2 LVLs ap4: 6.2 cm ESV(MOD-sp4): 23.9 ml ESV(sp4-el): 24.6 ml EF(MOD-sp4): 67.1 % EF(sp4-el): 67.1 % _ SV(sp4-el): 50.3 ml LA dimension(2D): 4.0 cm LA A4 area: 21.6 cm2 _ RA A4 area: 15.5 cm2 ECHO/Echo, Limited Study Interpretation Summary Normal LV size. Left ventricular systolic function is normal. The left ventricular ejection fraction is 60 %. Small (<1.0 cm) pericardial effusion. Normal RV size. Mild concentric left ventricular hypertrophy. Ordering Physician: José Miguel Carlson Referring Physician: Melissa Lopes Performed By: Kat Hernandez, NANNETTE, RVT 09/16/241425 Date Theodore Mcdaniel MD CC: Dr. José Miguel Carlson DO; Dr. Melissa Lopes MD Date Dictated: 09/16/24 0943 Date Transcribed: 09/16/241425 Tax Professional: Signed Normal [facility] Electrocardiogram reportOrde red By: Theodore Mcdaniel on 09-16-2024 EKG study [facility] Cardiovascular Services [address] [place] [address] 12 Lead EKG 09/15/24 1049 MR#: [id number] Acct: [id number] Name: ABEL LYLES Rep #:[id number] : 1950 74 From: Theodore Mcdaniel MD Attending Dr: Dr. José Miguel Carlson DO Status: ADM DARRYL Ordering Dr: Mariana Clemons DO Date: 0 09/15/24 Location: [facility] Sex: F C Admitted: 09/15/24 Test Reason : Blood Pressure : */* mmHG Vent. Rate : 65 BPM Atrial Rate : 65 BPM P-R Int : 158 ms QRS Dur : 88 ms QT Int : 406 ms P-R-T Axes : 61 -1 89 degrees QTcB Int : 422 ms Normal sinus rhythm Nonspecific ST and T wave abnormality Abnormal ECG Confirmed by THEODORE MCDANIEL MD ([id number]), newspaper copy editor BEATRIZ MORAN ([id number]) on 09/16/2024 8:09:44 AM Referred By: Confirmed By: THEODORE MCDANIEL MD 09/16/24 0809 Date _ Theodore Mcdaniel MD CC: Dr. Mariana Clemons DO; Dr. José Miguel Carlson DO; Dr. Melissa Lopes MD ~ Signed [facility] Work Phone: Eosinophil percentageOrdered By: Stanislav Akers on 09-16-2024 Eosinophils/100 WBC (Bld) 0.8 % 0-5 [facility] Erythrocyte distribution wid th (RBC) [Ratio]Ordered By: Stanislav Akers on 09-16-2024 Erythrocyte distribution width (RBC) [Entitic vol] 47.9 fL High 35.1-43.9 [facility] Erythrocyte distribution wid th ratioOrdered By: Stanislav Akers on 09-16-2024 Erythrocyte distribution width (RBC) [Ratio] 14.8 % High 11.6-14.6 [facility] Erythrocyte distribution wid th standard deviationOrdered By: Stanislav Akers on 09-16-2024 Erythrocyte distribution width (RBC) [Ratio] 47.9 fl High 35.1-43.9 [facility] Estimation of creatinine dave aranceOrdered By: Stanislav Akers on 09-16-2024 Estimated Creatinine Clearance Calc 53.97 ml/min 50-250 [facility] GFR/1.73 sq M.predicted bruce g non-blacks MDRD (S/P/Bld) [Vol rate/Area]Ordered By: Stanislav Akers on 09-16-2024 Estimated GFR (MDRD) Non-Af Amer 58 Low >60 [facility] Comment on above: mL/min/1.73m2 CKD-EP I Creatinine Equation (2020) Glomerular filtration rate ( GFR) estimation/1.73 sq m using serum, plasma, or whole bOrdered By: Stanislav Akers on 09-16-2024 GFR/1.73 sq M.predicted among non-blacks MDRD (S/P/Bld) [Vol rate/Area] 58 mL/min/{1.73_m2} Low >60 [facility] Comment on above: mL/min/1.73m2 CKD-EP I Creatinine Equation (2020) Hematocrit Auto (Bld) [Volum e fraction]Ordered By: Stanislav Akers on 09-16-2024 Hematocrit (Bld) [Volume fraction] 35.6 % Low 37-47 [facility] Hemoglobin measurementOrdere d By: Stanislav Akers on 09-16-2024 Hemoglobin (Bld) [Mass/Vol] 11.6 g/dL Low 12.0-15.0 [facility] Immature granulocytes/100 WB C Auto (Bld)Ordered By: Stanislav Akers on 09-16-2024 Immature granulocytes/100 WBC (Bld) 0.300 % 0.0-0.9 [facility] Comment on above: IG% - Immature Granu locytes (promyelocytes, myelocytes and metamyelocytes) > 1% indicates that a LEFT SHIFT is Present. Limited echocardiogram repor tOrdered By: Theodore Mcdaniel on 09-16-2024 Study report [facility] [address] [place] [address] Echo, Limited Study 09/16/24 0943 MR#: [id number] Acct: [id number] Name: ABEL LYLES Rep #:[id number] : 1950 74 From: Theodore Nascimento Attending Dr: Dr. José Miguel Carlson, Status: ADM DARRYL Ordering Dr: José Miguel Carlson DO Date: [facility] CARE Sex: F C Admitted: 09/15/24 Reason For Study Reason For Study: PULMONARY EMBOLISM Procedure This was a 2D Doppler, Color Flow transthoracic echocardiogram. Exam performed portable in patient room. Left Ventricle Normal LV size. Mild concentric left ventricular hypertrophy. Left ventricular systolic function is normal. The left ventricular ejection fraction is 60 %. No regional wall motion abnormalities noted. Right Ventricle Normal RV size. Normal systolic function. Atria Normal left atrium. Normal right atrium. Mitral Valve Normal mitral valve. Tricuspid Valve Normal tricuspid valve. Pulmonic Valve Normal pulmonic valve. Great Vessels Normal aortic root. Pericardium/Pleural Small (<1.0 cm) pericardial effusion. MMode/2D Measurements & Calculations LVIDd: 4.0 cm IVSd: 1.3 cm Ao root diam: 2.8 cm LVIDs: 2.5 cm LVPWd: 1.3 cm FS: 39.0 % LAV(MOD-sp4): 64.6 ml LVAd ap4: 24.8 cm2 SV(MOD-sp4): 48.8 ml LVLd ap4: 7.0 cm SI(MOD-sp4): 24.3 ml/m2 EDV(MOD-sp4): 72.7 ml EDV(sp4-el): 74.9 ml LVAs ap4: 13.5 cm2 LVLs ap4: 6.2 cm ESV(MOD-sp4): 23.9 ml ESV(sp4-el): 24.6 ml EF(MOD-sp4): 67.1 % EF(sp4-el): 67.1 % SV(sp4-el): 50.3 ml LA dimension(2D): 4.0 cm LA A4 area: 21.6 cm2 _ RA A4 area: 15.5 cm2 ECHO/Echo, Limited Study Interpretation Summary Normal LV size. Left ventricular systolic function is normal. The left ventricular ejection fraction is 60 %. Small (<1.0 cm) pericardial effusion. Normal RV size. Mild concentric left ventricular hypertrophy. Ordering Physician: José Miguel Carlson Referring Physician: Melissa Lopes Performed By: Kat Hernandez, NANNETTE, RVT 09/16/24 1426 Date _ Theodore Mcdaniel MD CC: Dr. José Miguel Carlson DO; Dr. Melissa Lopes MD ~ Date Dictated: 09/16/2443 Date Transcribed: 09/16/24 1426 Tax Professional: Signed [facility] Work Phone: Lymphocytes Auto (Unsp spec) [#/Vol]Ordered By: Stanislav Akers on 09-16-2024 Lymphocytes (Bld) [#/Vol] 2.79 10*3/uL 0.83-4.51 [facility] Lymphocytes/100 WBC Auto (Un sp spec)Ordered By: Stanislav Akers on 09-16-2024 Lymphocytes/100 WBC (Bld) 23.3 % 19-41 [facility] MCV (mean corpuscular volume ) determinationOrdered By: Stanislav Akers on 09-16-2024 MCV (RBC) [Entitic vol] 87.0 fL 81-99 [facility] Mean corpuscular hemoglobin (MCH) determinationOrdered By: Stanislav Akers on 09-16-2024 MCH (RBC) [Entitic mass] 28.4 pg 27.0-32.0 [facility] Mean corpuscular hemoglobin concentration (MCHC) determinationOrdered By: Stanislav Akers on 09-16-2024 MCHC (RBC) [Mass/Vol] 32.6 g/dL 32-36 [facility] Mean platelet volume determi nationOrdered By: Stanislav Akers on 09-16-2024 Platelet mean volume (Bld) [Entitic vol] 11.6 fL 6.2-12.0 [facility] Monocyte percentageOrdered B y: Stanislav Akers on 09-16-2024 Monocytes/100 WBC (Bld) 8.5 % 0-10 [facility] Neutrophil percentageOrdered By: Stanislav Akers on 09-16-2024 Neutrophils/100 WBC (Bld) 66.9 % 47-70 [facility] Nucleated red blood cell per centageOrdered By: Stanislav Akers on 09-16-2024 Nucleated RBC/100 WBC (Bld) [Ratio] 0 % 0-5 [facility] Platelet countOrdered By: Ashlee Akers on 09-16-2024 Platelets (Bld) [#/Vol] 259 10*3/uL 150-450 [facility] Potassium (Unsp spec) [Mass/ Vol]Ordered By: Stanislav Akers on 09-16-2024 Potassium [Moles/Vol] 4.9 mmol/L 3.3-5.1 [facility] Comment on above: Hemolysis present, R esults could be affected. Potassium measurement (mass/ volume)Ordered By: Stanislav Akers on 09-16-2024 Potassium (Unsp spec) [Mass/Vol] 4.9 mmol/L 3.3-5.1 [facility] Comment on above: Hemolysis present, R esults could be affected. RBC Auto (Bld) [#/Vol]Ordere d By: Stanislav Akers on 09-16-2024 RBC (Bld) [#/Vol] 4.09 10*6/uL Low 4.2-5.4 [facility] Serum creatinine measurement (mass/volume)Ordered By: Stanislav Akers on 09-16-2024 Creatinine [Mass/Vol] 1.01 mg/dL 0.70-1.20 [facility] Serum glucose measurement (m ass/volume)Ordered By: Stanislav Akers on 09-16-2024 Glucose [Mass/Vol] 114 mg/dL High 70-99 [facility] Serum or plasma calcium luciana urement (mass/volume)Ordered By: Stanislav Akers on 09-16-2024 Calcium [Mass/Vol] 8.9 mg/dL 7.6-11.0 [facility] Serum or plasma urea nitroge n measurement (mass/volume)Ordered By: Stanislav Akers on 09-16-2024 Urea nitrogen [Mass/Vol] 18 mg/dL 4-19 [facility] Sodium levelOrdered By: Nikos Akers on 09-16-2024 Sodium [Moles/Vol] 134 mmol/L 133-145 [facility] White blood cell (WBC) count Ordered By: Stanislav Akers on 09-16-2024 WBC (Bld) [#/Vol] 12.0 10*3/uL High 4.4-11.0 [facility] 12 Lead EKGon 09-15-2024 12 Lead EKG [facility] Cardiovascular Services [address] [place] [address] 12 Lead EKG 09/15/24 1049 MR#: [id number] Acct: [id number] Name: ABEL LYLES Rep #: [id number] : 1950 74 From: Theodore Mcdaniel MD Attending Dr: Dr. José Miguel Carlson DO Status: ADM DARRYL Ordering Dr: Mariana Clemons DO Date: 09/15/24 Location: [facility] Sex: F C Admitted: 09/15/24 Test Reason : Blood Pressure : */* mmHG Vent. Rate : 65 BPM Atrial Rate : 65 BPM P-R Int : 158 ms QRS Dur : 88 ms QT Int : 406 ms P-R-T Axes : 61 -1 89 degrees QTcB Int : 422 ms Normal sinus rhythm Nonspecific ST and T wave abnormality Abnormal ECG Confirmed by THEODORE MCDANIEL MD ([id number]), newspaper copy editor BEATRIZ MORAN ([id number]) on 09/16/2024 8:09:44 AM Referred By: Confirmed By: THEODORE MCDANIEL MD 09/16/24 0809 Date Theodore Mcdaniel MD CC: Dr. Mariana Clemons DO; Dr. José Miguel Carlson DO; Dr. Melissa Lopes MD Signed Normal [facility] Absolute neutrophil countOrd ered By: Mariana Clemons on 09-15-2024 Neutrophils (Bld) [#/Vol] 12.1 10*3/uL High 2.0-7.7 [facility] Activated partial thrombopla stin time (aPTT) in platelet poor plasma by coagulation aOrdered By: Mariana Clemosn on 09-15-2024 aPTT Coag (PPP) [Time] 24.8 s 24.1-36.2 [facility] Anion gap in Serum or Plasma Ordered By: Mariana Clemons on 09-15-2024 Anion gap [Moles/Vol] 11 mmol/L 5-15 [facility] Arterial patency Wrist arter y --pre arterial punctureOrdered By: Stanislav Akers on 09-15-2024 Bing Test Positive [facility] Assessment of wrist artery p atency prior to arterial punctureOrdered By: Stanislav Akers on 09-15-2024 Arterial patency Wrist artery --pre arterial puncture Positive [facility] BUN/creatinine ratioOrdered By: Mariana Clemons on 09-15-2024 Urea nitrogen/Creatinine [Mass ratio] 19.5 mg/mg 10- [facility] Base excess Calc (BldV) [Mol es/Vol]Ordered By: Stanislav Akers on 09-15-2024 Blood Gas Base Excess 13 mmol/L High -2-2 [facility] Basic Metabolic Profile (BMP )on 09-15-2024 BUN/CRE 19.5 RATIO Normal - [facility] Comment on above: Performed By: #### L 100.0100, L501.4021, L500.2500 #### [facility] [address] [place], [address] Calcium [Mass/Vol] 9.2 mg/dL Normal 7.6-11.0 [facility] Comment on above: Performed By: #### L 100.0100, L501.4021, L500.2500 #### [facility] [address] [place], [address] Chloride [Moles/Vol] 105 mmol/L Normal 98-108 [facility] Comment on above: Performed By: #### L 100.0100, L501.4021, L500.2500 #### [facility] [address] [place], [address] CO2 [Moles/Vol] 23.3 mmol/L Normal 21.0-32.0 [facility] Comment on above: Performed By: #### L 100.0100, L501.4021, L500.2500 #### [facility] [address] [place], [address] Creatinine [Mass/Vol] 0.83 mg/dL Normal 0.70-1.20 [facility] Comment on above: Performed By: #### L 100.0100, L501.4021, L500.2500 #### [facility] [address], [address] ECRCL 66.83 ml/min Normal 50-250 [facility] Comment on above: Performed By: #### L 100.0100, L501.4021, L500.2500 #### [facility] [address] [place], [address] GAP 11 Normal 5-15 [facility] Comment on above: Performed By: #### L 100.0100, L501.4021, L500.2500 #### [facility] [address] [place], [address] GFR/1.73 sq M.predicted among non-blacks MDRD (S/P/Bld) [Vol rate/Area] 74 mL/min/{1.73_m2} Normal >60 [facility] Comment on above: Result Comment: mL/m in/1.73m2 CKD-EPI Creatinine Equation (2020) Performed By: #### L 100.0100, L501.4021, L500.2500 #### [facility] [address] [place], [address] Glucose [Mass/Vol] 112 mg/dL High 70-99 [facility] Comment on above: Performed By: #### L 100.0100, L501.4021, L500.2500 #### [facility] [address] [place], [address] Potassium [Moles/Vol] 4.1 mmol/L Normal 3.3-5.1 [facility] Comment on above: Performed By: #### L 100.0100, L501.4021, L500.2500 #### [facility] [address] [place], [address] Sodium [Moles/Vol] 139 mmol/L Normal 133-145 [facility] Comment on above: Performed By: #### L 100.0100, L501.4021, L500.2500 #### [facility] [address] [place], [address] Urea nitrogen [Mass/Vol] 16 mg/dL Normal 4-19 [facility] Comment on above: Performed By: #### L 100.0100, L501.4021, L500.2500 #### [facility] [address] [place], [address] Basophil percentageOrdered B y: Mariana Clemons on 09-15-2024 Basophils/100 WBC (Bld) 0.3 % 0-1 [facility] BING TEST Positive Normal [facility] Comment on above: Performed By: #### L 500.2500 #### [facility] [address] [place], [address] Base excess Calc (Bld) [Moles/Vol] 13 mmol/L High -2 to +2 [facility] Comment on above: Performed By: #### L 500.2500 #### [facility] [address] [place], [address] Blood Gas Type ART Normal [facility] Comment on above: Performed By: #### L 500.2500 #### [facility] [address] [place], [address] CO2 [Moles/Vol] 37 mmol/L Normal [facility] Comment on above: Performed By: #### L 500.2500 #### [facility] [address] [place], [address] FI02 3.0 Normal [facility] Comment on above: Performed By: #### L 500.2500 #### [facility] [address] [place], [address] HCO3 (Bld) [Moles/Vol] 35.7 mmol/L High 22-26 [facility] Comment on above: Performed By: #### L 500.2500 #### [facility] [address] [place], [address] Mode Not entered Normal [facility] Comment on above: Performed By: #### L 500.2500 #### [facility] [address] [place], [address] O2 Delivery Dev Cannula Normal [facility] Comment on above: Performed By: #### L 500.2500 #### [facility] [address] [place], [address] pCO2 40.2 mmHg Normal 35-45 [facility] Comment on above: Performed By: #### L 500.2500 #### [facility] [address] [place], [address] pH (Bld) 7.56 [pH] High 7.35-7.45 [facility] Comment on above: Performed By: #### L 500.2500 #### [facility] [address] [place], [address] PO2 90 mmHG Normal 75-100 [facility] Comment on above: Performed By: #### L 500.2500 #### [facility] [address] [place], [address] SITE L Radial Normal [facility] Comment on above: Performed By: #### L 500.2500 #### [facility] [address] [place], [address] SO2 98 Normal 95-99 [facility] Comment on above: Performed By: #### L 500.2500 #### [facility] [address] [place], [address] Blood base excess determinat ionOrdered By: Stanislav Akers on 09-15-2024 Base excess Calc (BldV) [Moles/Vol] 13 mmol/L High -2-2 [facility] Blood bicarbonate measuremen tOrdered By: Stanislav Akers on 09-15-2024 Blood Gas Bicarbonate Actual 35.7 mmol/L High - [facility] HCO3 (Bld) [Moles/Vol] 35.7 mmol/L High 22- [facility] CBC W/Diff, Automatedon Absolute Lymph 2.52 X10 3/uL Normal 0.83-4.51 [facility] Comment on above: Performed By: #### L 100.0100, L501.4021, L500.2500 #### [facility] [address] [place], [address] Absolute Neut 12.1 X10 3/uL High 2.0-7.7 [facility] Comment on above: Performed By: #### L 100.0100, L501.4021, L500.2500 #### [facility] [address] [place], [address] Basophils/100 WBC (Bld) 0.3 % Normal 0-1 [facility] Comment on above: Performed By: #### L 100.0100, L501.4021, L500.2500 #### [facility] [address] [place], [address] Eosinophils/100 WBC (Bld) 2.1 % Normal 0-5 [facility] Comment on above: Performed By: #### L 100.0100, L501.4021, L500.2500 #### [facility] [address] [place], [address] Erythrocyte distribution width (RBC) [Ratio] 14.6 % Normal 11.6-14.6 [facility] Comment on above: Performed By: #### L 100.0100, L501.4021, L500.2500 #### [place] [facility] [address] [place], [address] Hematocrit (Bld) [Volume fraction] 38.9 % Normal 37-47 [facility] Comment on above: Performed By: #### L 100.0100, L501.4021, L500.2500 #### [facility] [address] [place], [address] Hemoglobin (Bld) [Mass/Vol] 12.5 g/dL Normal 12.0-15.0 [facility] Comment on above: Performed By: #### L 100.0100, L501.4021, L500.2500 #### [facility] [address] [place], [address] IG% 0.400 Normal 0.0-0.9 [facility] Comment on above: Result Comment: IG% - Immature Granulocytes (promyelocytes, myelocytes and metamyelocytes) > 1% indicates that a LEFT SHIFT is Present. Performed By: #### L 100.0100, L501.4021, L500.2500 #### [facility] [address] [place], [address] Lymphocytes/100 WBC (Bld) 15.7 % Low 19-41 [facility] Comment on above: Performed By: #### L 100.0100, L501.4021, L500.2500 #### [facility] [address] [place], [address] MCH (RBC) [Entitic mass] 28.2 pg Normal 27.0-32.0 [facility] Comment on above: Performed By: #### L 100.0100, L501.4021, L500.2500 #### [facility] [address] [place], [address] MCHC (RBC) [Mass/Vol] 32.1 g/dL Normal 32-36 [facility] Comment on above: Performed By: #### L 100.0100, L501.4021, L500.2500 #### [facility] [address] [place], [address] MCV (RBC) [Entitic vol] 87.8 fL Normal 81-99 [facility] Comment on above: Performed By: #### L 100.0100, L501.4021, L500.2500 #### [facility] [address] [place], [address] Monocytes/100 WBC (Bld) 6.5 % Normal 0-10 [facility] Comment on above: Performed By: #### L 100.0100, L501.4021, L500.2500 #### [facility] [address] [place], [address] Neutrophils/100 WBC (Bld) 75.0 % High 47-70 [facility] Comment on above: Performed By: #### L 100.0100, L501.4021, L500.2500 #### [facility] [address] [place], [address] Nucleated RBC (Bld) [#/Vol] 0 10*3/uL Normal 0-5 [facility] Comment on above: Performed By: #### L 100.0100, L501.4021, L500.2500 #### [facility] [address] [place], [address] Platelet mean volume (Bld) [Entitic vol] 10.9 fL Normal 6.2-12.0 [facility] Comment on above: Performed By: #### L 100.0100, L501.4021, L500.2500 #### [facility] [address] [place], [address] Platelets (Bld) [#/Vol] 240 10*3/uL Normal 150-450 [facility] Comment on above: Performed By: #### L 100.0100, L501.4021, L500.2500 #### [facility] [address] [place], [address] RBC (Bld) [#/Vol] 4.43 10*6/uL Normal 4.2-5.4 [facility] Comment on above: Performed By: #### L 100.0100, L501.4021, L500.2500 #### [facility] [address] [place], [address] RDW SD 47.3 fl High 35.1-43.9 [facility] Comment on above: Performed By: #### L 100.0100, L501.4021, L500.2500 #### [facility] [address] [place], [address] WBC (Bld) [#/Vol] 16.1 10*3/uL High 4.4-11.0 [facility] Comment on above: Performed By: #### L 100.0100, L501.4021, L500.2500 #### [facility] [address] [place], [address] CTA Chest W/WO Contraston CTA Chest W/WO Contrast [facility] Imaging Services [address] [place] [address] CTA Chest W/WO Contrast MR#: [id number] Acct: [id number] Name: ABEL LYLES Rep #: [id number] : 1950 F 74 From: Elliott Lopez MD PCP: Dr. Melissa Lopes MD Status: [facility] ER Study: CTA Chest W/WO Contrast Date of Exam: 09/15/24 Exam# [id number] Ordering Dr: Mariana Clemons DO PROCEDURE: CTA CHEST W/WO CONTRAST 09/15/2024 REASON FOR EXAM: RIGHT CHEST PAIN, HIGH RISK PE TECHNIQUE: CTA chest was performed with IV contrast. Multiplanar reformats and MIP reconstructions were generated. CONTRAST: Isovue 370 VOLUME: 97 mL One or more dose reduction techniques were used (e.g., Automated exposure control, adjustment of the mA and/or kV according to patient size, use of iterative reconstruction technique). RADIATION DOSE SUMMARY: CTDlvol: 11.87+ 21.37+ 14.44+ 7.12+ 14.43 mGy DLP: 923.21 mGycm COMPARISON: None FINDINGS: Exam limited by suboptimal opacification of the pulmonary arterial tree with opacification of the main pulmonary artery 2 190 Hounsfield units as compared with 352-355 within the adjacent pulmonary veins and thoracic aorta. Additional limitation related to streak artifact from densely opacified SVC, RIGHT subclavian, and RIGHT brachiocephalic veins. Heart/pericardium: Unremarkable. Aorta: Trace to mild atherosclerosis. Pulmonary arteries: Normal in caliber. RIGHT-sided pulmonary emboli are present extending from the RIGHT mainstem bronchus into upper lobe branches, appearing occlusive in these locations. Nonocclusive and occlusive pulmonary emboli also present within RIGHT lower lobar pulmonary artery and extending into segmental/subsegmental branches no central or definite LEFT-sided pulmonary embolism allowing for limitations. Lymph nodes: Subcarinal node is difficult to delineate from the adjacent esophagus, roughly 13 mm short axis. Lungs/pleura: Slightly elevated RIGHT hemidiaphragm. Trace RIGHT pleural effusion. Dependent atelectasis. Mild focal ground-glass in the lateral RIGHT lower lobe. Airways: Unremarkable. Chest wall: Unremarkable. Upper abdomen: Atherosclerosis. Cholecystectomy. Dilatation of the CBD which may be related to post cholecystectomy effect. 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 Musculoskeletal: Degenerative changes of the shoulders. Multilevel spondylosis. Partially imaged spinal stimulator. Thoracolumbar scoliosis. CT/CTA Chest W/WO Contrast IMPRESSION: 1. Central RIGHT upper and lower lobe occlusive and nonocclusive pulmonary emboli as detailed. No definite central or definite LEFT-sided pulmonary embolism allowing for limitations. 2. Mild focal ground-glass in the lateral RIGHT lower lobe could reflect a developing pulmonary infarct given the above. Pneumonia/pneumonitis is an additional consideration. 3. Mild mediastinal lymphadenopathy, nonspecific and potentially reactive in the absence of known malignancy. Correlate with medical history and follow-up as indicated. 4. Cholecystectomy with dilatation of the CBD which may be related to post cholecystectomy effect. Correlate with serum bilirubin and consider outpatient MRCP as indicated. 5. Tiny 8 mm peripherally calcified distal splenic artery aneurysm. 6. Additional description as above. IMPRESSION: [place] Alert: Impression #1 and #2 The critical information above was relayed directly by me by telephone to Mariana Clemons on 09/15/2024 at 11:36 am MST with readback verification. Reading Location: [facility] CC: Dr. Mariana Clemons DO; Dr. Melissa Lopes MD Tax Professional: Signed Normal [facility] Carbon dioxide, total [Moles /volume] in Central venous bloodOrdered By: Mariana Clemons on 09-15-2024 CO2 [Moles/Vol] 23.3 mmol/L 21.0-32.0 [facility] Chloride assayOrdered By: Reji Clemons on 09-15-2024 Chloride [Moles/Vol] 105 mmol/L 98-108 [facility] Determination of fraction of inspired oxygenOrdered By: Stanislav Akers on 09-15-2024 Blood Gas Oxygen Percent 3.0 [facility] Emergency Department Summary on 09-15-2024 Emergency Department Summary [facility] Medical Records Department [address] [place] [address] Emergency Department Summary 09/15/24 MR#: [id number] Acct: [id number] Name: ABEL LYLES Rep #: [id number] : 1950 74 From: Mariana Clemons DO PCP: Dr. Melissa Lopes MD Status:REG ER Location: ED HPI History of Present Illness Chief Complaint: Chest Pain Informant: patient Narrative Narrative: Patient is a 74-year-old female with history of IBS, hypothyroidism, hypertension, hyperlipidemia and recent fusion of her right ankle on August [address] Barone at the [facility]. She has been on aspirin 81 mg twice daily since then. She is nonweightbearing. She notes that this morning she developed pain under her right breast. It seems to be worse with breathing and especially with coughing. She had a coughing spell this morning she states was very painful. She states the cough is nonproductive. Denies any fever or recent URI symptoms peer denies any nausea or vomiting. Denies feeling short of breath. Denies any new swelling of her leg. Denies any injury or falls. States she did have OT today and had a shower but does not think this is related. States she felt well yesterday. Denies any history of DVT or PE. No other complaints or concerns reported at this time. Notes she has been doing with some constipation recently but denies any acute concerns with this at this time. [facility] Medical History Irritable bowel syndrome Pancreatitis Tension headache Wears hearing aid Post-menopausal History of steroid therapy Walker as ambulation aid Arthritis Anemia Back pain Difficulty swallowing Diarrhea Wears glasses Depression Anxiety Thyroid disease Unspecified diffuse connective tissue disease Easy bruising History of IBS Non-smoker Shortness of breath on exertion History of echocardiogram Cardiac murmur Hip pain, left Home Medications ???Medication ???Instructions ???Recorded ???Last Taken ???Type duloxetine 60 mg capsule,delayed 60 mg PO QHS 07/29/18 09/14/24 His tory release hydroxychloroquine 200 mg tablet 200 mg PO QHS arthritis 07/29/18 0 09/14/24 History (Plaquenil) levothyroxine 100 mcg tablet 100 mcg PO DAILY 07/29/18 09/15/24 History (Synthroid) buspirone 7.5 mg tablet 11.25 mg PO BID 11/28/21 09/15/24 History meloxicam 15 mg tablet 15 mg PO DAILY 12/18/23 09/14/24 H istory dicyclomine 10 mg capsule 10 mg PO TID #90 caps 03/19/2412/03 Rx acetaminophen 500 mg capsule 500 mg PO Q8 PRN fever or pain 08/0409/15/24 History cholecalciferol (vitamin D3) 10 10 mcg PO QDAY 05/12/24 09/15/24 H istory mcg (400 unit) capsule clonazepam 0.5 mg tablet 0.5 mg PO QHS 05/12/24 09/14/24 Hi story multivitamin 1 tab PO QDAY 05/12/24 09/15/24 Hi story jspiil-lctwndba-osirsdx See Rx Instructions PO .COMPLEX 09/15/24 Rx 36,000-114,000-180,000 unit #320 caps capsule,delay rel (Creon) omeprazole 20 mg capsule,delayed 20 mg PO DAILY #30 caps 07/01/24 0 09/15/24 Rx release valsartan 160 mg tablet 160 mg PO BID #180 tabs 09/03/24 0 09/15/24 Rx aspirin 81 mg tablet,delayed 81 mg PO BID 09/15/24 09/15/24 His tory release (Adult Low Dose Aspirin) brexpiprazole 2 mg tablet (Rexulti) 2 mg PO DAILY 09/15/24 09/14/24 History cephalexin 500 mg capsule 500 mg PO Q6H 09/15/24 09/14/24 Hi story gabapentin 300 mg capsule 300 mg PO TID 09/15/24 09/15/24 Hi story oxycodone 5 mg tablet 5 mg PO Q6H PRN pain 09/15/2412/03 History psyllium husk 0.52 gram capsule 0.52 g PO DAILY 09/15/24 09/15/24 History (Daily Fiber) Allergy/AdvReac Type Severity Reaction Status Date / Time grass pollen Allergy Mild Other Verified 05/15/24 10:10 house dust Allergy Mild Other Verified 05/15/24 10:10 oak Allergy Mild Other Verified 05/15/24 10:10 Seasonal Allergies: Uncoded Allergy Mild nasal Verified 05/15/24 10:10 congestion soap AdvReac Mild Rash Verified 05/15/24 10:10 Family History Mother Oat cell carcinoma of lung Brother Cancer Grandmother Thyroid disorder Uncle Diabetes Surgical History Hx of surgical procedure History of esophagogastroduodenosco py (EGD) Hx of colonoscopy Hx of thumb surgery History of carpal tunnel surgery of right wrist History of carpal tunnel surgery of left wrist History of cholecystectomy History of cataract extraction History of bunionectomy History of broken nose History of hip replacement History of laminectomy History of knee replacement Social History household members: none number of children: 2 current occupati (more content not included)... Normal [facility] Eosinophil percentageOrdered By: Mariana Clemons on 09-15-2024 Eosinophils/100 WBC (Bld) 2.1 % 0-5 [facility] Erythrocyte distribution wid th (RBC) [Ratio]Ordered By: Mariana Clemons on 09-15-2024 Erythrocyte distribution width (RBC) [Entitic vol] 47.3 fL High 35.1-43.9 [facility] Erythrocyte distribution wid th ratioOrdered By: Mariana Clemons on 09-15-2024 Erythrocyte distribution width (RBC) [Ratio] 14.6 % 11.6-14.6 [facility] Estimation of creatinine dave aranceOrdered By: Mariana Clemons on 09-15-2024 Estimated Creatinine Clearance Calc 66.83 ml/min 50-250 [facility] GFR/1.73 sq M.predicted bruce g non-blacks MDRD (S/P/Bld) [Vol rate/Area]Ordered By: Mariana Clemons on 09-15-2024 Estimated GFR (MDRD) Non-Af Amer 74 >60 [facility] Comment on above: mL/min/1.73m2 CKD-EP I Creatinine Equation (2020) H AND P Exam - [facility] 09-15-2024 H&P Exam - Hospitalist [facility] Medical Records Department [address] [place] [address] H P Exam - Hospitalist 09/15/24 1455 MR#: [id number] Acct: [id number] Name: ABEL LYLES Rep #: [id number] : 1950 74 From: Stanislav Akers MD PCP: Dr. Melissa Lopes MD Status:ADM DARRYL Location: [place] [address] HPI - General General Date of Admission: 09/15/24 HPI Narrative ABEL LYLES, is a 74 F who presents to the hospital with chest pain shortness of breath that started today. She had right lower extremity foot surgery on 08/13/2024 and was discharged from an outside hospital on aspirin 81 mg p.o. twice daily. Since her surgery, on the right leg she has had some calf pain and then today had her shortness of breath and chest pain. Troponins x 2 are negative, BNP is also normal, and there is no right heart strain on CTA of the chest despite a somewhat central right PE. She does have some anxiety surrounding this pulmonary embolism as her half-sister from a blood clot to her lungs. There is no other family history of blood clots or miscarriages. She does have some pain with inspiration indicating pleuritic chest pain, and on the CT scan there is some mild groundglass opacities on the right lung consistent with possible infarct due to her pulmonary embolisms. I discussed the case with vascular surgery who does not plan any intervention at this time. She was given 10 mg of Eliquis in the ER. She has not noticed any swelling in her right lower extremity, and her foot is currently wrapped. She states that she has not had great wound healing and is scheduled to see a plastic surgeon with wound expertise within the next week or so. FOR[facility]LY [facility], [facility] Medical History Irritable bowel syndrome Pancreatitis Tension headache Wears hearing aid Post-menopausal History of steroid therapy Walker as ambulation aid Arthritis Anemia Back pain Difficulty swallowing Diarrhea Wears glasses Depression Anxiety Thyroid disease Unspecified diffuse connective tissue disease Easy bruising History of IBS Non-smoker Shortness of breath on exertion History of echocardiogram Cardiac murmur Hip pain, left Home Medications ???Medication ???Instructions ???Recorded ???Last Taken ???Type duloxetine 60 mg capsule,delayed 60 mg PO QHS 07/29/18 09/14/24 His tory release hydroxychloroquine 200 mg tablet 200 mg PO QHS arthritis 07/29/18 0 09/14/24 History (Plaquenil) levothyroxine 100 mcg tablet 100 mcg PO DAILY 07/29/18 09/15/24 History (Synthroid) buspirone 7.5 mg tablet 11.25 mg PO BID 11/28/21 09/15/24 History meloxicam 15 mg tablet 15 mg PO DAILY 12/18/23 09/14/24 H istory dicyclomine 10 mg capsule 10 mg PO TID #90 caps 03/19/2412/03 Rx acetaminophen 500 mg capsule 500 mg PO Q8 PRN fever or pain 08/0409/15/24 History cholecalciferol (vitamin D3) 10 10 mcg PO QDAY 05/12/24 09/15/24 H istory mcg (400 unit) capsule clonazepam 0.5 mg tablet 0.5 mg PO QHS 05/12/24 09/14/24 Hi story multivitamin 1 tab PO QDAY 05/12/24 09/15/24 Hi story nmhkjl-biliugni-wiujqoa See Rx Instructions PO .COMPLEX 09/15/24 Rx 36,000-114,000-180,000 unit #320 caps capsule,delay rel (Creon) omeprazole 20 mg capsule,delayed 20 mg PO DAILY #30 caps 07/01/24 0 09/15/24 Rx release valsartan 160 mg tablet 160 mg PO BID #180 tabs 09/03/24 0 09/15/24 Rx aspirin 81 mg tablet,delayed 81 mg PO BID 09/15/24 09/15/24 His tory release (Adult Low Dose Aspirin) brexpiprazole 2 mg tablet (Rexulti) 2 mg PO DAILY 09/15/24 09/14/24 History cephalexin 500 mg capsule 500 mg PO Q6H 09/15/24 09/14/24 Hi story gabapentin 300 mg capsule 300 mg PO TID 09/15/24 09/15/24 Hi story oxycodone 5 mg tablet 5 mg PO Q6H PRN pain 09/15/2412/03 History psyllium husk 0.52 gram capsule 0.52 g PO DAILY 09/15/24 09/15/24 History (Daily Fiber) Allergy/AdvReac Type Severity Reaction Status Date / Time grass pollen Allergy Mild Other Verified 05/15/24 10:10 house dust Allergy Mild Other Verified 05/15/24 10:10 oak Allergy Mild Other Verified 05/15/24 10:10 Seasonal Allergies: Uncoded Allergy Mild nasal Verified 05/15/24 10:10 congestion soap AdvReac Mild Rash Verified 05/15/24 10:10 Family History (Updated 09/15/24 @ 16:32 by Nicole Hu) Mother Oat cell carcinoma of lung Brother Cancer Grandmother Thyroid disorder Uncle Diabetes Sister Pulmonary embolism Surgical History Hx of surgical procedure History of esophagogastroduodenosco py (EGD) Hx of colonoscopy Hx of thumb surgery History of carpal tunnel surgery of right wrist History of carpal tunnel surgery of left wrist History of cholecystectomy History of catarac (more content not included)... Normal [facility] Hematocrit Auto (Bld) [Volum e fraction]Ordered By: Mariana Clemons on 09-15-2024 Hematocrit (Bld) [Volume fraction] 38.9 % 37-47 [facility] Hemoglobin measurementOrdere d By: Mariana Clemons on 09-15-2024 Hemoglobin (Bld) [Mass/Vol] 12.5 g/dL 12.0-15.0 [facility] Immature granulocytes/100 WB C Auto (Bld)Ordered By: Mariana Clemons on 09-15-2024 Immature granulocytes/100 WBC (Bld) 0.400 % 0.0-0.9 [facility] Comment on above: IG% - Immature Granu locytes (promyelocytes, myelocytes and metamyelocytes) > 1% indicates that a LEFT SHIFT is Present. International normalized rat io (INR) calculationOrdered By: Mariana Clemons on 09-15-2024 INR Coag (Bld) [Relative time] 1.0 {INR} [facility] L499.0042on 09-15-2024 Trop T High Sen 13 ng/L Normal <=14 [facility] Comment on above: Performed By: #### L 499.0042 ####[facility] [address] [place], [address] L499.0043on 09-15-2024 Trop T High Sen 12 ng/L Normal <=14 [facility] Comment on above: Performed By: #### L 499.0043 #### [facility] [address] [place], [address] L501.4021on 09-15-2024 Trop T High Sen 14 ng/L Normal <=14 [facility] Comment on above: Performed By: #### L 500.2500 #### [facility] [address] [place], [address] L503.7505on 09-15-2024 Natriuretic peptide B (Bld) [Mass/Vol] 101 pg/mL Normal <=1800 [facility] Comment on above: Result Comment: Hear t Failure Unlikely: < 300 pg/mL Heart Failure Likely < 50 Years: > 450 pg/mL 50-75 Years: > 900 pg/mL >75 Years: > 1800 pg/mL Performed By: #### L 503.7505 #### [facility] [address] [place], [address] Lymphocytes Auto (Unsp spec) [#/Vol]Ordered By: Mariana Clemons on 09-15-2024 Lymphocytes (Bld) [#/Vol] 2.52 10*3/uL 0.83-4.51 [facility] Lymphocytes/100 WBC Auto (Un sp spec)Ordered By: Mariana Clemons on 09-15-2024 Lymphocytes/100 WBC (Bld) 15.7 % Low 19-41 [facility] MCV (mean corpuscular volume ) determinationOrdered By: Mariana Clemons on 09-15-2024 MCV (RBC) [Entitic vol] 87.8 fL 81-99 [facility] Mean corpuscular hemoglobin (MCH) determinationOrdered By: Mariana Clemons on 09-15-2024 MCH (RBC) [Entitic mass] 28.2 pg 27.0-32.0 [facility] Mean corpuscular hemoglobin concentration (MCHC) determinationOrdered By: Mariana Clemons on 09-15-2024 MCHC (RBC) [Mass/Vol] 32.1 g/dL 32-36 [facility] Mean platelet volume determi nationOrdered By: Mariana Clemons on 09-15-2024 Platelet mean volume (Bld) [Entitic vol] 10.9 fL 6.2-12.0 [facility] Measurement, pHOrdered By: Cande Akers on 09-15-2024 pH (Unsp spec) 7.56 [pH] High 7.35-7.45 [facility] Monocyte percentageOrdered B y: Mariana Clemons on 09-15-2024 Monocytes/100 WBC (Bld) 6.5 % 0-10 [facility] Natriuretic peptide.B prohor wes N-Terminal [Mass/Vol]Ordered By: Mariana Clemons on 09-15-2024 Natriuretic peptide B (Bld) [Mass/Vol] 101 pg/mL <1800 [facility] Comment on above: Heart Failure Unlike ly: < 300 pg/mLHeart Failure Likely< 50 Years: > 450 pg/mL50-75 Years: > 900 pg/mL>75 Years: > 1800 pg/mL Natriuretic peptide.B prohor wes N-Terminal [Mass/volume] in Serum or PlasmaOrdered By: Mariana Clemons on 09-15-2024 Natriuretic peptide.B prohormone N-Terminal [Mass/Vol] 101 pg/mL <1800 [facility] Comment on above: Heart Failure Unlike ly: < 300 pg/mLHeart Failure Likely< 50 Years: > 450 pg/mL50-75 Years: > 900 pg/mL>75 Years: > 1800 pg/mL Neutrophil percentageOrdered By: Mariana Clemons on 09-15-2024 Neutrophils/100 WBC (Bld) 75.0 % High 47-70 [facility] No Panel InformationOrdered By: Stanislav Akers on 09-15-2024 Blood Gas Sample Site L Radial [facility] Blood Gas Specimen Type ART [facility] Blood Gas Vent Mode Not entered [facility] Oxygen Delivery Device Cannula [facility] Nucleated red blood cell per centageOrdered By: Mariana Clemons on 09-15-2024 Nucleated RBC/100 WBC (Bld) [Ratio] 0 % 0-5 [facility] Oxygen saturation measuremen tOrdered By: Stanislav Akers on 09-15-2024 Blood Gas Oxygen Saturation 98 % 95-99 [facility] Partial Thromboplast Timeon 09-15-2024 aPTT Coag (Bld) [Time] 24.8 s Normal 24.1-36.2 [facility] Comment on above: Performed By: #### L 300.4742, L300.2939 #### [facility] [address] [place], [address] Partial pressure of carbon d ioxide measurementOrdered By: Stanislav Akers on 09-15-2024 Arterial Blood Partial Pressure CO2 40.2 mmHg 35-45 [facility] Partial pressure of oxygen m easurementOrdered By: Stanislav Akers on 09-15-2024 Arterial Blood Partial Pressure O2 90 mmHG 75-100 [facility] Platelet countOrdered By: Reji Clemons on 09-15-2024 Platelets (Bld) [#/Vol] 240 10*3/uL 150-450 [facility] Potassium (Unsp spec) [Mass/ Vol]Ordered By: Mariana Clemons on 09-15-2024 Potassium [Moles/Vol] 4.1 mmol/L 3.3-5.1 [facility] Prothrombin Time w/INRon INR Coag (PPP) [Relative time] 1.0 {INR} Normal [facility] Comment on above: Performed By: #### L 300.3900, L300.4310 #### [facility] [address] [place], [address] PT Coag (PPP) [Time] 12.9 s Normal 11.7-14.9 [facility] Comment on above: Performed By: #### L 300.3900, L300.4310 #### [facility] [address] [place], [address] Prothrombin timeOrdered By: Mariana Clemons on 09-15-2024 PT Coag (PPP) [Time] 12.9 s 11.7-14.9 [facility] RBC Auto (Bld) [#/Vol]Ordere d By: Mariana Clemons on 09-15-2024 RBC (Bld) [#/Vol] 4.43 10*6/uL 4.2-5.4 [facility] Serum creatinine measurement (mass/volume)Ordered By: Mariana Clemons on 09-15-2024 Creatinine [Mass/Vol] 0.83 mg/dL 0.70-1.20 [facility] Serum glucose measurement (m ass/volume)Ordered By: Mariana Clemons on 09-15-2024 Glucose [Mass/Vol] 112 mg/dL High 70-99 [facility] Serum or plasma calcium luciana urement (mass/volume)Ordered By: Mariana Clemons on 09-15-2024 Calcium [Mass/Vol] 9.2 mg/dL 7.6-11.0 [facility] Serum or plasma urea nitroge n measurement (mass/volume)Ordered By: Mariana Clemons on 09-15-2024 Urea nitrogen [Mass/Vol] 16 mg/dL 4-19 [facility] Sodium levelOrdered By: Daniel Clemons on 09-15-2024 Sodium [Moles/Vol] 139 mmol/L 133-145 [facility] Total carbon dioxide measure mentOrdered By: Stanislav Akers on 09-15-2024 Blood Gas Total CO2 37 mmol/L [facility] CO2 [Moles/Vol] 37 mmol/L [facility] Troponin T.cardiac High sens itivity method [Mass/Vol]Ordered By: Mariana Clemons on 09-15-2024 Troponin T High Sensitivity 4 Hour 12 ng/L <14 [facility] Troponin T High Sensitivity 2 Hour 13 ng/L <14 [facility] Troponin T High Sensitivity 14 ng/L <14 [facility] Troponin T.cardiac [Mass/vol ume] in Serum or Plasma by High sensitivity methodOrdered By: Mariana Clemons on 09-15-2024 Troponin T.cardiac High sensitivity method [Mass/Vol] 12 ng/L <14 [facility] Troponin T.cardiac High sensitivity method [Mass/Vol] 13 ng/L <14 [facility] Troponin T.cardiac High sensitivity method [Mass/Vol] 14 ng/L <14 [facility] White blood cell (WBC) count Ordered By: Mariana Clemons on 09-15-2024 WBC (Bld) [#/Vol] 16.1 10*3/uL High 4.4-11.0 [facility] aPTT Coag (PPP) [Time]Ordere d By: Mariana Clemons on 09-15-2024 aPTT Coag (Bld) [Time] 24.8 s 24.1-36.2 [facility] pH (Unsp spec)Ordered By: Ashlee Akers on 09-15-2024 Blood Gas pH 7.56 High 7.35-7.45 [facility] CNOVon 08-29-2024 CNOV Office Visit (PODIWS ) -------- ABEL LYLES I ([id number]) 1950 F Date Time Provider Department 08/29/24 3:20 PM DORYS JADE PODIWS During your visit today, we recorded the following information about you: Ele Rodríguez LPN 08/29/2024 3:41 PM Signed AMB ROOMING INTAKE FLOWSHEET DATA Patient presents with: Left Foot - Established Patient, Follow Up, nail care Right Foot - Established Patient, Follow Up, nail care Patient has procedure on 08/13/2024 at [facility]. STEPHANIE Fournier Matthew 08/29/2024 3:41 PM Signed Subjective: Patient presents to clinic c/o painful toenails. They state that the nails are especially painful with shoe gear and pressure. Patient states that nails b/l hallux are painful. No other pedal complaints at this time. Patient states no change in medications or medical history since last visit. Objective: Patient presents to clinic nonambulatory (recent triple arthrodesis of right lower extremity) Vasc: DP and PT pulses are palpable left (dressing on right foot). CFT is less than 5 seconds bilateral. Skin temperature is warm to cool proximal to distal bilateral. There is mild edema or varicosities noted. Neuro: Protective sensation is intact to the foot and toes when tested with the 5.07 SWM bilateral. The hallux is downgoing bilateral. Derm: Nails 1-5 b/l are discolored-yellow, thick, crumbly, dystrophic and with subungal debris. Skin is of normal turgor, texture and hair growth is present bilateral. There are no hyperkeratosis, ulcerations, scars, verruca or other lesions noted. Assessment: (B35.1) Onychomycosis (primary encounter diagnosis) (M79.675) Pain in toe of left foot (M79.674) Pain in toe of right foot Plan: Patient was seen and evaluated. Nails 1-5 bilateral were debrided in length and thickness. Discussed possible removal of toenail (b/l hallux) in the future if pain continues. Patient is to RTC in 3-4 months. Dorys Jade DPM Allergies As of Date: 08/29/2024 Noted Allergy Reaction SOAP 05/15/2023 2 - Rash Comments: With Ann Marie and Tide specifically. SEASONAL ALLERGIES 05/15/2023 16 - Unknown Comments: Coughing and congestion GRASS POLLEN 07/18/2023 16 - Unknown HOUSE DUST 01/29/2024 2 - Rash TREE, OAK 01/29/2024 2 - Rash Date Reviewed: 08/29/2024 Reviewed by: Ele Rodríguez LPN - Fully Assessed Reason for Visit: Established Patient [175] Follow Up [171] nail care [Other] Established Patient [175] Follow Up [171] nail care [Other] Primary Visit Diagnosis:Onychomycosis [B35.1] Other Visit Diagnoses:Pain in toe of left foot [M79.675] Pain in toe of right foot [M79.674] Prescriptions as of 08/29/2024 - docusate sodium (COLACE) 100 mg capsule TAKE 1 CAPSULE BY MOUTH TWICE DAILY NEEDED FOR CONSTIPATION FOR 7 DAYS - oxyCODONE IR (ROXICODONE) 5 mg immediate release tablet Take 5 mg by mouth every 6 hours as needed. - aspirin, enteric coated (ASPIRIN, ENTERIC COATED) 81 mg EC tablet Take 1 tablet by mouth every 12 hours. - cephALEXin (KEFLEX) 500 mg capsule - brexpiprazole (REXULTI) 2 mg tablet Take 1 tablet by mouth once daily. - busPIRone (BUSPAR) 7.5 mg tablet Take 1.5 tablets by mouth two times a day. - DULoxetine (CYMBALTA) 60 mg capsule Take 1 capsule by mouth once daily. - valsartan (DIOVAN) 160 mg tablet Take 1 tablet by mouth two times a day. - levothyroxine (SYNTHROID) 100 mcg tablet Take 1 tablet by mouth once daily. - clonazePAM (KLONOPIN) 0.5 mg tablet Take 1 tablet by mouth at bedtime as needed for anxiety (and sleep difficulties) for up to 30 days. - omeprazole (PRILOSEC) 20 mg capsule Take 20 mg by mouth once daily. - meloxicam (MOBIC) 15 mg tablet Take 15 mg by mouth once daily. - dicyclomine (BENTYL) 10 mg capsule three times a day. - kgqqtr-egvtwygl-tlepsqx (CREON) 36,000-114,000- 180,000 unit delayed release capsule Take by mouth three times daily with meals. - hydrOXYchloroQUINE (PLAQUENIL) 200 mg tablet once daily. - cholecalciferol (VITAMIN D3) 400 unit tab once daily. - multivitamin tablet Take 1 tablet by mouth once daily. - acetaminophen (TYLENOL) 500 mg tablet Take by mouth every 8 hours as needed. - gabapentin (NEURONTIN) 300 mg capsule Take 400 mg by mouth three times daily. 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 Normal [facility] L3410.9998on 08-27-2024 [facility] Misc. Normal [facility] Comment on above: Order Comment: [id number] 4STOOL CULTURE RT Result Comment: STOO L CULTURE Salmonella/Shigella Screen Final Report Result 1 No Salmonella or Shigella recovered. Campylobacter Culture Final Report Result 1 No Campylobacter species isolated. E. coli Shiga Toxin EIA Negative TESTING PERFORMED AT [facility]. ORIGINAL REPORT ON FILE IN LAB CONTAINS ADDITIONAL TEST SITE INFORMATION. Performed By: #### L 499.0043 #### [facility] [address] [place], [place], [address] Ova and Parasites 8623on OP OVA AND PARASITES EX AM, ROUTINE These results were obtained using wet preparation(s) and trichrome stained smear. This test does not include testing for Crytosporidium parvum, Cyclospora, or Microsporidia. One negative specimen does not rule out the possibility of a parasitic infection. TESTING PERFORMED AT [facility]. ORIGINAL REPORT ON FILE IN LAB CONTAINS ADDITIONAL TEST SITE INFORMATION. Ova/Parasite Exam NO OVA, CYSTS, OR PARASITES FOUND. Normal [facility] Comment on above: Performed By: #### L 499.0043 #### [facility] [address] [place], [address] Calprotectin, Stoolon [address] 104 ug/g Normal 0-120 [facility] Comment on above: Result Comment: Conc entration Interpretation Follow-Up < 5 - 50 ug/g Normal None >50 -120 ug/g Borderline Re-evaluate in 4-6 weeks >120 ug/g Abnormal Repeat as clinically indicated Performed at: [address] [id number] [employer] [employer]: Magdiel Lucas MD, Phone: [phone] Performed By: #### L 499.0043 #### [facility] [address] [place], [place], [id number] Giardia Lamblia, Stool EIAon 08-25-2024 Giardia Stool Negative Normal Negative [facility] Comment on above: Result Comment: Perf ormed at: - [facility] [id number] [employer] [employer]: Magdiel Lucas MD, Phone: [phone] Performed at: - [facility] [id number] [employer] [employer]: Shiv Calvin PhD, Phone: [phone] Performed By: #### L 499.0043 #### [facility] [address] [place], [place], [id number] L7000.0750on 08-25-2024 P ELASTASE,FECA 186 Low >200 [facility] Comment on above: Result Comment: Resu lt Units: ug Elast./g Severe Pancreatic Insufficiency: <100 Moderate Pancreatic Insufficiency: 100 - 200 Normal: >200 Performed By: #### L 499.0043 #### [facility] [place], [place], [id number] C. difficile DNA SULMA+probe Q l (Unsp spec)Ordered By: Lillie Wu on 08-22-2024 Clostridioides difficile (PCR) [facility] CDIFF (PCR)on 08-22-2024 CDIFF Reference Range: Negative [employer] GeneXpert: polymerase chain reaction (PCR) 027 027 NAP1-B1 Presumptive Negative *for epidemiolologic???use C. Diff PCR Negative- No toxigenic C. Diff Detected Normal [facility] Comment on above: Performed By: #### L 100.0100, L500.2500 #### [facility] [address] [place], [place], [id number] Calprotectin stoolOrdered By : Lillie Wu on 08-22-2024 Calprotectin stool 104 ug/g 0-120 [facility] Comment on above: Concentration Interp retation Follow-Up< 5 - 50 ug/g Normal None>50 -120 ug/g Borderline Re-evaluate in 4-6 weeks >120 ug/g Abnormal Repeat as clinically indicatedPerformed at: [email or web address] [id number] Director: Magdiel Lucas MD, Phone: [phone] Stool Calprotectin 104 ug/g 0-120 [facility] Comment on above: Concentration Interp retation Follow-Up< 5 - 50 ug/g Normal None>50 -120 ug/g Borderline Re-evaluate in 4-6 weeks >120 ug/g Abnormal Repeat as clinically indicatedPerformed at: [email or web address] [address] [id number] Director: Magdiel Lucas MD, Phone: [phone] Clostridium difficile detect ion by polymerase chain reactionOrdered By: Lillie Wu on 08-22-2024 C. difficile DNA SULMA+probe Ql (Unsp spec) [facility] Elastase.pancreatic (Stl) [M ass/Mass]Ordered By: Lillie Wu on 08-22-2024 Stool Pancreatic Elastase 186 Low >200 [facility] Comment on above: Result Units: ug Sophie st./g Severe Pancreatic Insufficiency: <100 Moderate Pancreatic Insufficiency: 100 - 200 Normal: >200 G. lamblia Ag IA Ql (Stl)Ord ered By: Lillie Wu on 08-22-2024 Stool Giardia Antigen Negative Negative [facility] Comment on above: Performed at: [facility] [address] [id number] Director: Magdiel Lucas MD, Phone: [phone] at: [employer] [id number] Director: Shiv Calvin PhD, Phone: [phone] Giardia lamblia ag stool EIA Ordered By: Lillie Wu on 08-22-2024 G. lamblia Ag IA Ql (Stl) Negative Negative [facility] Comment on above: Performed at: [facility] [address] [id number] Director: Magdiel Lucas MD, Phone: [phone] at: [place] [id number] [place], [place] [id number] Director: Shiv Calvin PhD, Phone: [phone] Lactoferrin IA Ql (Stl)Order ed By: Lillie Wu on 08-22-2024 Stool Lactoferrin [facility] Ova and parasitesOrdered By: Lillie Wu on 08-22-2024 Ova and Parasites [facility] Stool Lactoferrin/WBCon 08-09 WBCST Fecal WBC Lactoferri n Negative: No Fecal WBC Lactoferrin present Normal [facility] Comment on above: Performed By: #### L 499.0043 #### [facility] [address] [place], [address] Stool lactoferrin detection by immunoassayOrdered By: Lillie Wu on 08-22-2024 Lactoferrin IA Ql (Stl) [facility] Stool pancreatic elastase me asurement (mass/mass)Ordered By: Lillie Wu on 08-22-2024 Elastase.pancreatic (Stl) [Mass/Mass] 186 Low >200 [facility] Comment on above: Result Units: ug Sophie st./g Severe Pancreatic Insufficiency: <100 Moderate Pancreatic Insufficiency: 100 - 200 Normal: >200 DBT Breast - bilateral lawrence fuentescande 08-08-2024 IMPRESSION: There is no mammographic evidence of malignancy in either breast. Routine screening mammogram is recommended. Annual mammogram will be due in 1 year. BI-RADS Category 1: Negative RISK: Based on the Tyrer-Cuzick (TC) risk assessment model, this patient has a 1.4% lifetime risk of developing breast cancer, meaning they are at average risk for developing breast cancer. However, this is only an estimate based on available history provided on the patient's questionnaire. We encourage all patients to talk with their providers about these results, further recommendations for managing breast health, and appropriate supplemental screening options if the patient has dense breast tissue. Interpreting Radiologist: Alok Chávez M.D. Electronically signed on: 08/08/2024 Tax Professional: SANDEEP Transcribe Date/Time: Aug 07 2024 9:14A Dictated by: ALOK CHÁVEZ MD This examination was interpreted and the report reviewed and electronically signed by: ALOK CHÁVEZ MD on Aug 08 2024 5:21AM [facility] [[email or web address]] DIVISION OF RADIOLOGY * * *Final Report* * * DATE OF EXAM: Aug 07 2024 9:23AM [facility] 0582 - [facility] SCREENING W MILI / PROCEDURE REASON: Encounter for screening mammogram for breast cancer * * * * Physician Interpretation * * * * RESULT: [facility] [address] [place] [address] #[id number] - [facility] SCREENING W MILI HISTORY: 74 year-old patient seen for screening and is asymptomatic in both breasts. Patient states no personal history of breast cancer. COMPARISON STUDIES: The present examination has been compared to prior imaging studies dated 07/26/2022 (mammogram) and 08/06/2023 (mammogram). MAMMOGRAM TECHNIQUE: The study was acquired using full field digital technology and interpreted from soft copy. Digital Breast Tomosynthesis (DBT) images were obtained and used to assist in the interpretation of this examination. MAMMOGRAM FINDINGS: The breasts are almost entirely fatty. No suspicious masses, calcifications or other abnormalities are seen in either breast. There are no significant interval changes. DIVISION OF RADIOLOGY Provider, [facility] - 08/08/2024 * * *Final Report* * * DATE OF EXAM: Aug 07 2024 9:23AM [facility] 0582 - [facility] SCREENING W MILI / PROCEDURE REASON: Encounter for screening mammogram for breast cancer * * * * Physician Interpretation * * * * RESULT: [facility] [address] [place] [address] #[id number] - [facility] SCREENING W MILI HISTORY: 74 year-old patient seen for screening and is asymptomatic in both breasts. Patient states no personal history of breast cancer. COMPARISON STUDIES: The present examination has been compared to prior imaging studies dated 07/26/2022 (mammogram) and 08/06/2023 (mammogram). MAMMOGRAM TECHNIQUE: The study was acquired using full field digital technology and interpreted from soft copy. Digital Breast Tomosynthesis (DBT) images were obtained and used to assist in the interpretation of this examination. MAMMOGRAM FINDINGS: The breasts are almost entirely fatty. No suspicious masses, calcifications or other abnormalities are seen in either breast. There are no significant interval changes. IMPRESSION IMPRESSION: There is no mammographic evidence of malignancy in either breast. Routine screening mammogram is recommended. Annual mammogram will be due in 1 year. BI-RADS Category 1: Negative RISK: Based on the Tyrer-Cuzick (TC) risk assessment model, this patient has a 1.4% lifetime risk of developing breast cancer, meaning they are at average risk for developing breast cancer. However, this is only an estimate based on available history provided on the patient's questionnaire. We encourage all patients to talk with their providers about these results, further recommendations for managing breast health, and appropriate supplemental screening options if the patient has dense breast tissue. Interpreting Radiologist: Alok Chávez M.D. Electronically signed on: 08/08/2024 Tax Professional: SANDEEP Transcribe Date/Time: Aug 07 2024 9:14A Dictated by: ALOK CHÁVEZ MD This examination was interpreted and the report reviewed and electronically signed by: ALOK CHÁVEZ MD on Aug 08 2024 5:21AM EST [facility] DBT Breast - bilateral scree ningOrdered By: Ccf Provider on 08-08-2024 [facility] DBT Breast - bilateral scree ningon 08-07-2024 Radiology Study observation (narrative) [facility] SCREENING W TOMOon 08-07 [facility] SCREENING W MILI * * *Final Report* * * DATE OF EXAM: Aug 07 2024 9:23AM [facility] 0582 - [facility] SCREENING W MILI / PROCEDURE REASON: Encounter for screening mammogram for breast cancer * * * * Physician Interpretation * * * * RESULT: [place] [address] [place] [address] [id number] #[id number] - [facility] SCREENING W MILI HISTORY: 74 year-old patient seen for screening and is asymptomatic in both breasts. Patient states no personal history of breast cancer. COMPARISON STUDIES: The present examination has been compared to prior imaging studies dated 07/26/2022 (mammogram) and 08/06/2023 (mammogram). MAMMOGRAM TECHNIQUE: The study was acquired using full field digital technology and interpreted from soft copy. Digital Breast Tomosynthesis (DBT) images were obtained and used to assist in the interpretation of this examination. MAMMOGRAM FINDINGS: The breasts are almost entirely fatty. No suspicious masses, calcifications or other abnormalities are seen in either breast. There are no significant interval changes. IMPRESSION: There is no mammographic evidence of malignancy in either breast. Routine screening mammogram is recommended. Annual mammogram will be due in 1 year. BI-RADS Category 1: Negative RISK: Based on the Tyrer-Cuzick (TC) risk assessment model, this patient has a 1.4% lifetime risk of developing breast cancer, meaning they are at average risk for developing breast cancer. However, this is only an estimate based on available history provided on the patient's questionnaire. We encourage all patients to talk with their providers about these results, further recommendations for managing breast health, and appropriate supplemental screening options if the patient has dense breast tissue. Interpreting Radiologist: Alok Chávez M.D. Electronically signed on: 08/08/2024 Tax Professional: SANDEEP Transcribe Date/Time: Aug 07 2024 9:14A Dictated by: ALOK CHÁVEZ MD This examination was interpreted and the report reviewed and electronically signed by: ALOK CHÁVEZ MD on Aug 08 2024 5:21AM EST [id number] Normal [facility] Gastroenterology Visit Repor ton 08-06-2024 Gastroenterology Visit Report [facility] [address] [place] [address] OFFICE VISIT Date of Service: 08/06/24 MR#: [id number] Acct: [id number] Name: ABEL LYLES Rep #: [id number] : 1950 Provider: RICARDO Gaspar Age/Sex: 74/F Location: [facility] Status: Signed Intake Vital Signs 01/08/24 11:43 05/15/24 08:34 Height 5 ft 3 in 5 ft 3 in Intake Visit Reasons: 3 M FU Chief Complaint: IBS Allergies grass pollen Allergy (Mild, Verified 05/15/24 10:10) Other house dust Allergy (Mild, Verified 05/15/24 10:10) Other oak Allergy (Mild, Verified 05/15/24 10:10) Other Seasonal Allergies: Uncoded Allergy (Mild, Verified 05/15/24 10:10) nasal congestion soap Adverse Reaction (Mild, Verified 05/15/24 10:10) Rash Have you fallen in the past year?: No Nurse's Note: OV 08.06.24 Pt here for f/u and reports abdominal pain, gas, bloating, diarrhea that has an appearance of mucus and slimy. Continues omeprazole, creon and dicyclomine. PFSH Medical History Anemia Anxiety Arthritis Back pain Cardiac murmur Depression Diarrhea Difficulty swallowing Easy bruising Hip pain, left History of echocardiogram History of IBS History of steroid therapy Irritable bowel syndrome Non-smoker Pancreatitis Post-menopausal Shortness of breath on exertion Tension headache Thyroid disease Unspecified diffuse connective tissue disease Walker as ambulation aid Wears glasses Wears hearing aid Surgical History History of broken nose History of bunionectomy History of carpal tunnel surgery of left wrist History of carpal tunnel surgery of right wrist History of cataract extraction History of cholecystectomy History of esophagogastroduodenosco py (EGD) History of hip replacement History of knee replacement History of laminectomy Hx of colonoscopy Hx of surgical procedure Hx of thumb surgery Family History Mother Oat cell carcinoma of lung Brother Cancer Grandmother Thyroid disorder Uncle Diabetes Social History household members: none number of children: 2 current occupational status: retired Smoking Status: Never smoker Electronic Cigarette Use: not used alcohol intake: current alcohol intake frequency: other details: occasional use substance use type: does not use HPI HPI Chief Complaint: IBS Details: ABEL LYLES, is a 74 F who presents to the office today for f/u. BGI established in 2022 with alternating constiapotn and loose stools. Biochemical workup ESR, LDH, folate, TSH, Vit d1,25, T4, gastrin, GAME, DARIAN, ANCA, SURI comp, celiac, IBD profile without pertinent abnormality. CRP H6.50, Vit B12 H1307, T3 L2.1 Stool lactoferrin, calprotectin, EP, OP, giardia, C.difficile (formed) WNL. Elastase L184, fecal fats increased. GET 9.15.23 23.96 minutes (12-56) Last OV 05.06.24 continues constipation and loose stools. BM every 2-3 days that is loose. Continues Creon and fiber. Instructed to take Creon with her meal, not after. OV 25; Over the last four days pt has been struggling with loose stools. She has had accidents due to lack of awareness of needing to have a bm. Prior to this she was doing well with a soft formed bm every other day. She denies any medication, diet or lifestyle changes. During this time, she has had some nausea but no vomiting. She will have up to four loose stools per day typically starting after she eats the first meal of the day. She denies fever, lack of appetite, heartburn or melena. ROS Const Constitutional: Positive for fatigue and weakness; No fever(s) or weight change ENT ENT: No difficulty swallowing Cardio Cardiology: Positive for leg pain with exertion Gastro GI: Positive for abdominal pain, bloating, change in bowel habits, constipation, diarrhea, excessive flatus, Vomiting blood/hematemesis and nausea/dyspepsia; No belching, change in stool character, coffee ground emesis, cramping, heartburn, difficulty swallowing, feeling full early, incontinent of stools, Blood in stool, loose stools, Black,tarry stools, pain with swallowing, vomiting or other Musc Musculoskeletal: Positive for joint pain, back pain, muscle cramps, muscle weakness, numbness, tingling, Arthritis and leg pain with exertion Skin Skin: Positive for dry skin and itchy eyes; No yellowing of the eye Neuro Neurology: Positive for unsteady gait/balance, weakness, numbness and tingling Psych Psychiatric: Positive for anxiety and Positive for depression Endo Endocrine: Positive for fatigue; No weight change Aller/Imm Allergy/Immunologic: Positive for itchy eyes Hem (more content not included)... Normal [facility] CNOVon 08-05-2024 CNOV Office Visit (PSWSTR ) -------- ABEL LYLES I ([id number]) 1950 F Date Time Provider Department 08/05/24 10:30 AM CATARINA FITCH PSWSTR During your visit today, we recorded the following information about you: Pulse Blood pressure Weight 55/minute 126/76 101.2 kg Catarina Fitch, POWDER ROOM ATTENDANT.TWISTHAND 08/05/2024 1:13 PM Signed FOLLOW UP - PSYCHIATRIC PROGRESS NOTE PATIENT: Abel Lyles DATE: August 05, 2024 Visit Type:In person All information is from Patient report except when noted. This evaluation is NOT intended for forensic, disability or child custody purposes. CC: Presenting today for follow up regarding psychiatric medication management. HPI: Treatment Plan from Last Visit on 07/01/2024: TREATMENT PLAN: Increase Rexulti to 1.5 mg to see if it helps with her situational depressive symptoms. Consider increase to 2 mg if needed. Continue Buspar at the same dose to address anxiety symptoms. Continue Cymbalta at the same dose to manage anxiety and mood symptoms. Utilize Clonazepam as needed to manage severe episodes of anxiety and difficulty sleeping. Continue weekly psychotherapy with her new provider. Follow up in 4 to 6 weeks. Today Abel shares that I am on a real high right now. Daughter is here from [place]. Has been able to spend time with grandson Sheldon and give him his Angy presents finally. Grandson has been sick more recently. Shares that she is happy that his parents are letting him join the theater class. Had family dinner on Sunday and really enjoyed having everyone over. Shares that taking Rexulti at bedtime has helped with the fatigue related side effect. Unable to cut the pill due to size and continued to take just 1 mg. Shares that before Angela, her daughter came to town, her mood was low. In agreement to increase the dose to 2 mg. Has her foot surgery scheduled next week. Will have to stay one night in the hospital. Daughter will stay with her for 3 months to help with the recovery process. Looks forward to a trip with daughter to [facility]. Looks forward to spending some time with daughter while she is in town. Son continues to stay away from both patient and his sister. They have had this strained relationship for 5 years now and its a big source of sorrow for the patient. Has been connecting well with the current therapy provider. Sees the provider weekly. Worries about him retiring as well due to his age. Discussed not taking clonazepam at the same time as opioid pain medication after surgery. Interval Progress: Slightly improved PATIENT DATA: Generalized Anxiety Disorder Scale (WOLFGANG-7) 06/27/2024 07/01/2024 08/01/2024 WOLFGANG - 7 SCORES Score 5 5 11 (0-4) minimal anxiety, (5-9) mild anxiety, (10-14) moderate anxiety, (15-21) severe anxiety Patient Health Questionnaire (PHQ-9) 06/27/2024 07/01/2024 08/01/2024 PHQ-9 Score 12 12 9 (0-4) minimal depression, (5-9) mild depression, (10-14) moderate depression, (15-19) moderately severe depression, (20-27) severe depression PAST MEDICAL HISTORY Diagnosis Date Hypothyroidism PMH - PAST MEDICAL HISTORY OF seasonal allergies PMH - PAST MEDICAL HISTORY OF tension headaches PMH - PAST MEDICAL HISTORY OF tension in shoulders PMH - PAST MEDICAL HISTORY OF pancreatitis PMH - PAST MEDICAL HISTORY OF ibs PMH - PAST MEDICAL HISTORY OF chronic epigastric pain PMH - PAST MEDICAL HISTORY OF reset broken nose PMH - PAST MEDICAL HISTORY OF arthritis PMH - PAST MEDICAL HISTORY OF depression PAST SURGICAL HISTORY Procedure Laterality Date ARTHRP KNE CONDYLEANDPLATU MEDIALANDLAT COMPARTMENTS Knee replacement, total, both knee's PAST SURGICAL HISTORY OF cholecystecomy PAST SURGICAL HISTORY OF stent in sphincter of ode PAST SURGICAL HISTORY OF tubal ligation PAST SURGICAL HISTORY OF right foot bunion surgery ALLERGIES Allergen Reactions Soap Rash With [place] and Tide specifically. Seasonal Allergies Unknown Coughing and congestion Grass Pollen Unknown House Dust Rash Tree, [place] Rash Current Outpatient Medications on File Prior to Visit Medication Sig valsartan (DIOVAN) 160 mg tablet Take 1 tablet by mouth once daily. levothyroxine (SYNTHROID) 100 mcg tablet Take 1 tablet by mouth once daily. busPIRone (BUSPAR) 7.5 mg tablet Take 1.5 tablets by mouth two times a day. DULoxetine (CYMBALTA) 60 mg capsule Take 1 capsule by mouth once daily. brexpiprazole (REXULTI) 1 mg tablet Take 1.5 tablets by mouth once daily. clonazePAM (KLONOPIN) 0.5 mg tablet Take 1 tablet by mouth at bedtime as needed for anxiety (and sleep difficulties) for up to 30 days. omeprazole (PRILOSEC) 20 mg capsule Take 20 mg by mouth once daily. meloxicam (MOBIC) 15 mg tablet Take 15 mg by mouth once daily. dicyclomine (BENTYL) 10 mg capsule three times a day. gahadp-vjzwdlbl-nmvugce (more content not included)... Normal [facility] CBC W Auto Differential pane l (Bld)on 08-04-2024 Basophils (Bld) [#/Vol] 0.07 10*3/uL Normal <0.11 [facility] Comment on above: Order Comment: Speci men Type: BLOOD SPECIMENOrdering Facility: [facility] Address: [address] [place] [address] Performed By: #### 5 7021-8 ####[facility] [id number] [place] [address] [place] Basophils/100 WBC (Bld) 0.9 % Normal C [facility] Comment on above: Order Comment: Speci men Type: BLOOD SPECIMENOrdering Facility: [facility] Address: [address] [place] [address] Performed By: #### 5 7021-8 ####[facility] [id number] [place] [address] [place] Differential cell count method Nom (Bld) Auto Normal [facility] Comment on above: Order Comment: Speci men Type: BLOOD SPECIMENOrdering Facility: [facility] Address: [address] [place] [address] Performed By: #### 5 7021-8 ####[facility] MILLWNCLIA [id number] [place] [address] [place] Eosinophils (Bld) [#/Vol] 0.33 10*3/uL Normal <0.46 [facility] Comment on above: Order Comment: Speci men Type: BLOOD SPECIMENOrdering Facility: [facility] Address: [address] [place] [address] Performed By: #### 5 7021-8 ####[facility] [id number] [place] [address] [place] Eosinophils/100 WBC (Bld) 4.2 % Normal [facility] Comment on above: Order Comment: Speci men Type: BLOOD SPECIMENOrdering Facility: [facility] Address: [address] [place] [address] Performed By: #### 5 7021-8 ####[facility] [id number] [place] [address] [place] Erythrocyte distribution width (RBC) [Ratio] 15.3 % High 11.5-15.0 [facility] Comment on above: Order Comment: Speci men Type: BLOOD SPECIMENOrdering Facility: [facility] Address: [address] [place] [address] Performed By: #### 5 7021-8 ####[facility] [id number] [address] [place] Hematocrit (Bld) [Volume fraction] 42.5 % Normal 36.0-46.0 [facility] Comment on above: Order Comment: Speci men Type: BLOOD SPECIMENOrdering Facility: [facility] Address: [address] [place] [address] Performed By: #### 5 7021-8 ####[facility] [id number] [place] [address] [place] Hemoglobin (Bld) [Mass/Vol] 13.5 g/dL Normal 11.5-15.5 [facility] Comment on above: Order Comment: Speci men Type: BLOOD SPECIMENOrdering Facility: [facility] Address: [address] [place] [address] Performed By: #### 5 7021-8 ####[facility] [id number] [place] [address] [place] Immature granulocytes (Bld) [#/Vol] 0.03 10*3/uL Normal <0.10 [facility] Comment on above: Order Comment: Speci men Type: BLOOD SPECIMENOrdering Facility: [facility] Address: [address] [place] [address] Performed By: #### 5 7021-8 ####[facility] [id number] [place] [address] [place] Immature granulocytes/100 WBC (Bld) 0.4 % Normal [facility] Comment on above: Order Comment: Speci men Type: BLOOD SPECIMENOrdering Facility: [facility] Address: [address] [place] [address] Performed By: #### 5 7021-8 ####[facility] [id number] [place] [address] [place] Lymphocytes (Bld) [#/Vol] 2.47 10*3/uL Normal 1.00-4.00 [facility] Comment on above: Order Comment: Speci men Type: BLOOD SPECIMENOrdering Facility: [facility] Address: [address] [place] [address] Performed By: #### 5 7021-8 ####[facility] [id number] [place] [address] [place] Lymphocytes/100 WBC (Bld) 31.8 % Normal [facility] Comment on above: Order Comment: Speci men Type: BLOOD SPECIMENOrdering Facility: [facility] Address: [address] [place] [address] Performed By: #### 5 7021-8 ####[facility] JERRYCASA GRANDENCRUPESH [id number] [place] [address] [place] MCH (RBC) [Entitic mass] 27.6 pg Normal 26.0-34.0 [facility] Comment on above: Order Comment: Speci men Type: BLOOD SPECIMENOrdering Facility: [facility] Address: [address] [place] [address] Performed By: #### 5 7021-8 ####[facility] [id number] [place] [address] [place] MCHC (RBC) [Mass/Vol] 31.8 g/dL Normal 30.5-36.0 [facility] Comment on above: Order Comment: Speci men Type: BLOOD SPECIMENOrdering Facility: [facility] Address: [address] [place], [place] [id number] Performed By: #### 5 7021-8 ####[facility] [id number] [place] [address] [place] MCV (RBC) [Entitic vol] 86.7 fL Normal 80.0-100.0 C [facility] Comment on above: Order Comment: Speci men Type: BLOOD SPECIMENOrdering Facility: [facility] Address: [address] [place] [address] Performed By: #### 5 7021-8 ####[facility]CLIA [id number] [place] [address] [place] Monocytes (Bld) [#/Vol] 0.50 10*3/uL Normal <0.87 [facility] Comment on above: Order Comment: Speci men Type: BLOOD SPECIMENOrdering Facility: [facility] Address: [address] [place] [address] Performed By: #### 5 7021-8 ####[facility] JERRYCASA GRANDENCLIA [id number] [place] [address] [place] Monocytes/100 WBC (Bld) 6.4 % Normal C [facility] Comment on above: Order Comment: Speci men Type: BLOOD SPECIMENOrdering Facility: [facility] Address: [address] [place] [address] Performed By: #### 5 7021-8 ####[facility]ODNCLIA [id number] [place] [address] [place] Neutrophils (Bld) [#/Vol] 4.37 10*3/uL Normal 1.45-7.50 [facility] Comment on above: Order Comment: Speci men Type: BLOOD SPECIMENOrdering Facility: [facility] Address: [address] [place] [address] Performed By: #### 5 7021-8 ####[facility]CL[facility] [id number] [place] [address] [place] Neutrophils/100 WBC (Bld) 56.3 % Normal [facility] Comment on above: Order Comment: Speci men Type: BLOOD SPECIMENOrdering Facility: [facility] Address: [address] [place] [address] Performed By: #### 5 7021-8 ####[facility] HOSPITALLIA [id number] [place] [address] [place] Nucleated RBC (Bld) [#/Vol] 10*3/uL Normal <0.01 [facility] Comment on above: Order Comment: Speci men Type: BLOOD SPECIMENOrdering Facility: [facility] Address: [address] [place] [address] Performed By: #### 5 7021-8 ####[facility] HOSPITALLIA [id number] [place] [address] [place] Nucleated RBC/100 WBC (Bld) [Ratio] 0.0 /100 WBC Normal [facility] Comment on above: Order Comment: Speci men Type: BLOOD SPECIMENOrdering Facility: [facility] Address: [address] [place] [address] Performed By: #### 5 7021-8 ####[facility] HOSPITALNorbertoKANDISRUPESH [id number] [place] [address] [place] Platelet mean volume (Bld) [Entitic vol] 10.4 fL Normal 9.0-12.7 [facility] Comment on above: Order Comment: Speci men Type: BLOOD SPECIMENOrdering Facility: [facility] Address: [address] [place] [address] Performed By: #### 5 7021-8 ####[facility]ARROLLWOODKANDISMarlo [id number] [place] [address] [place] Platelets (Bld) [#/Vol] 280 10*3/uL Normal 150-400 [facility] Comment on above: Order Comment: Speci men Type: BLOOD SPECIMENOrdering Facility: [facility] Address: [address] [place] [address] Performed By: #### 5 7021-8 ####[facility] CARROLLWOODKANDISRUPESH [id number] [place] [address] [place] RBC (Bld) [#/Vol] 4.90 10*6/uL Normal 3.90-5.20 [facility] Comment on above: Order Comment: Speci men Type: BLOOD SPECIMENOrdering Facility: [facility] Address: [address] [place] [address] Performed By: #### 5 7021-8 ####[facility]NCLIA [id number] [place] [address] [place] WBC (Bld) [#/Vol] 7.77 10*3/uL Normal 3.70-11.00 [facility] Comment on above: Order Comment: Speci men Type: BLOOD SPECIMENOrdering Facility: [facility] Address: [address] [place] [address] Performed By: #### 5 7021-8 ####[facility] [id number] [place] [address] [place] Comprehensive metabolic 2000 panelon 08-04-2024 Albumin [Mass/Vol] 4.0 g/dL Normal 3.9-4.9 [facility] Comment on above: Order Comment: Speci men Type: BLOOD SPECIMENOrdering Facility: [facility] Address: [address] [place] [address] Performed By: #### 2 4323-8 ####[facility] [id number] [place] [address] [place] ALP [Catalytic activity/Vol] 101 U/L Normal 34-123 [facility] Comment on above: Order Comment: Speci men Type: BLOOD SPECIMENOrdering Facility: [facility] Address: [address] [place] [address] Performed By: #### 2 4323-8 ####[facility] [id number] [place] [address] [place] ALT [Catalytic activity/Vol] 16 U/L Normal 7-38 [facility] Comment on above: Order Comment: Speci men Type: BLOOD SPECIMENOrdering Facility: [facility] Address: [address] [place] [address] Performed By: #### 2 4323-8 ####[facility] [id number] [place] [address] [place] Anion gap [Moles/Vol] 10 mmol/L Normal 8-15 [facility] Comment on above: Order Comment: Speci men Type: BLOOD SPECIMENOrdering Facility: [facility] Address: [address] [place], [place] [address] Performed By: #### 2 4323-8 ####[facility] MILLTOWNCLIA [id number] [place] [address] [place] AST [Catalytic activity/Vol] 21 U/L Normal 13-35 [facility] Comment on above: Order Comment: Speci men Type: BLOOD SPECIMENOrdering Facility: [facility] Address: [address] [place] [address] Performed By: #### 2 4323-8 ####[facility] MILLTOWNCLIA [id number] [place] [address] [place] Bilirubin [Mass/Vol] 0.3 mg/dL Normal 0.2-1.3 [facility] Comment on above: Order Comment: Speci men Type: BLOOD SPECIMENOrdering Facility: [facility] Address: [address] [place] [address] Performed By: #### 2 4323-8 ####[facility] HOSPITALWNCLIA [id number] [place] [address] [place] Calcium [Mass/Vol] 9.2 mg/dL Normal 8.5-10.2 [facility] Comment on above: Order Comment: Speci men Type: BLOOD SPECIMENOrdering Facility: [facility] Address: [address] [place] [address] Performed By: #### 2 4323-8 ####[facility] MILLTOWNCLIA [id number] [place] [address] [place] Chloride [Moles/Vol] 107 mmol/L Normal 98-107 [facility] Comment on above: Order Comment: Speci men Type: BLOOD SPECIMENOrdering Facility: [facility] Address: [address] [place] [address] Performed By: #### 2 4323-8 ####[facility] MILLTOWNCLIA [id number] [place] [address] [place] CO2 [Moles/Vol] 24 mmol/L Normal 22-30 [facility] Comment on above: Order Comment: Speci men Type: BLOOD SPECIMENOrdering Facility: [facility] Address: [address] [place] [address] Performed By: #### 2 4323-8 ####[facility] CARR[facility]LLWOODNCRUPESH [id number] [place] [address] [place] Creatinine [Mass/Vol] 0.83 mg/dL Normal 0.58-0.96 [facility] Comment on above: Order Comment: Speci men Type: BLOOD SPECIMENOrdering Facility: [facility] Address: [address] [place] [address] Performed By: #### 2 4323-8 ####[facility]NCLIA [id number] [place] [address] [place] Creatinine and Glomerular filtration rate.predicted panel (S/P/Bld) 74 mL/min/1.73m??? Normal >=60 [facility] Comment on above: Order Comment: Speci men Type: BLOOD SPECIMENOrdering Facility: [facility] Address: [address] [place] [address] Result Comment: Sheri mated Glomerular Filtration Rate (eGFR) is calculated using the 2020 CKD-EPI creatinine equation. This equation utilizes serum creatinine, sex, and age as parameters. The creatinine assay has traceable calibration to isotope dilution-mass spectrometry. Refer to KDIGO guidelines for clinical interpretation. In patients with unstable renal function, e.g. those with acute kidney injury, the eGFR may not accurately reflect actual GFR. Performed By: #### 2 4323-8 ####[facility] HOSPITALWNCLIA [id number] [place] [address] [place] Glucose [Mass/Vol] 102 mg/dL High 74-99 [facility] Comment on above: Order Comment: Speci men Type: BLOOD SPECIMENOrdering Facility: [facility] Address: [address] [id number] Result Comment: The [place] Diabetes Association (ADA) provides guidance for cutoff values for fasting glucose and random glucose. The ADA defines fasting as no caloric intake for at least 8 hours. Fasting plasma glucose results between 100 to 125 mg/dL indicate increased risk for diabetes (prediabetes). Fasting plasma glucose results greater than or equal to 126 mg/dL meet the criteria for diagnosis of diabetes. In the absence of unequivocal hyperglycemia, results should be confirmed by repeat testing. In a patient with classic symptoms of hyperglycemia or hyperglycemic crisis, random plasma glucose results greater than or equal to 200 mg/dL meet the criteria for diagnosis of diabetes. Reference: Standards of Medical Care in Diabetes 2016, [place] [employer]. Diabetes Care. 2016.39(Suppl 1). Performed By: #### 2 4323-8 ####[facility] [id number] [place] [address] [place] Potassium [Moles/Vol] 4.3 mmol/L Normal 3.7-5.1 [facility] Comment on above: Order Comment: Speci men Type: BLOOD SPECIMENOrdering Facility: [facility] Address: [address] [place] [address] Performed By: #### 2 4323-8 ####[facility] [id number] [place] [address] [place] Protein [Mass/Vol] 6.2 g/dL Low 6.3-8.0 [facility] Comment on above: Order Comment: Speci men Type: BLOOD SPECIMENOrdering Facility: [facility] Address: [address] [id number] Performed By: #### 2 4323-8 ####[facility] [id number] [place] [address] [place] Sodium [Moles/Vol] 141 mmol/L Normal 136-144 [facility] Comment on above: Order Comment: Speci men Type: BLOOD SPECIMENOrdering Facility: [facility] Address: [address] [place] [address] Performed By: #### 2 4323-8 ####[facility] [id number] [address] Urea nitrogen [Mass/Vol] 20 mg/dL Normal 7-21 [facility] Comment on above: Order Comment: Speci men Type: BLOOD SPECIMENOrdering Facility: [facility] Address: [address] [place] [address] Performed By: #### 2 4323-8 ####[facility] [id number] [address] Lipid 1996 panelon 5 Cholesterol [Mass/Vol] 222 mg/dL High <200 [facility] Comment on above: Order Comment: Speci men Type: BLOOD SPECIMENOrdering Facility: [facility] Address: [address] [place] [address] Result Comment: <200 mg/dL, Desirable 200-239 mg/dL, Borderline high >239 mg/dL, High Performed By: #### 3 016-3 ####[facility]ATORYCLIA [id number] [address]#### [address]-3 ####[facility]ORATORYCLIA [id number] [address] [id number] [address] Cholesterol in HDL [Mass/Vol] 73 mg/dL Normal >39 [facility] Comment on above: Order Comment: Speci men Type: BLOOD SPECIMENOrdering Facility: [facility] Address: [address] [place] [address] Result Comment: 40-5 9 mg/dL, Acceptable >59 mg/dL, High: Negative risk factor for coronary heart disease <40 mg/dL, Low: Positive risk factor for coronary heart disease Performed By: #### 3 016-3 ####[facility]ATORYCLIA [id number] [address]#### 22792-3 ####[facility] VENICECLIA [id number] [address] [id number] [address] Cholesterol in LDL [Mass/Vol] 126 mg/dL High <100 [facility] Comment on above: Order Comment: Speci men Type: BLOOD SPECIMENOrdering Facility: [facility] Address: [address] [place] [address] Result Comment: <100 mg/dL, Optimal 100-129 mg/dL, Near optimal/above optimal 130-159 mg/dL, Borderline high 160-189 mg/dL, High >189 mg/dL, Very high Secondary prevention optimal LDL Cholesterol levels are recommended to be < 70 mg/dL Performed By: #### 3 016-3 ####[facility] LABORATORYCLIA [id number] [address]#### [address]-2 ####[facility] LABORATORYCLIA [id number] [address] [id number] [address] Cholesterol in LDL/Cholesterol in HDL [Mass ratio] 1.73 {ratio} Normal <2.54 [facility] Comment on above: Order Comment: Speci men Type: BLOOD SPECIMENOrdering Facility: [facility] Address: [address] [place] [address] Result Comment: Refpantera dash: 1. National Cholesterol Education Program ATP III Guideline At-A-Glance Quick Desk Reference: National Heart, Lung, and Blood [place]. National Institutes of Health. 2001: NIH Publication No. 01-3305. 2. An International Atherosclerosis Society position paper: global recommendations for the management of dyslipidemia: executive summary, Atherosclerosis. 2014: 232(2):410-413. Performed By: #### 3 016-3 ####[facility]ATORYCLIA [id number] [address] [place]#### [address]-5 ####[facility]ATORYCLIA [id number] [address] [id number] [address] [place] Cholesterol in VLDL [Mass/Vol] 23 mg/dL Normal <30 [facility] Comment on above: Order Comment: Speci men Type: BLOOD SPECIMENOrdering Facility: [facility] Address: [address] [place] [address] Performed By: #### 3 016-3 ####[facility]ATORYCLIA [id number] [address] [place]#### [address]-7 ####[facility]ORATORYCLIA [id number] [address] [id number] [place] [address] [place] Cholesterol non HDL [Mass/Vol] 149 mg/dL High <130 [facility] Comment on above: Order Comment: Speci men Type: BLOOD SPECIMENOrdering Facility: [facility] Address: [address] [place] [address] Result Comment: <130 mg/dL, Optimal 130-159 mg/dL, Near optimal/above optimal 160-189 mg/dL, Borderline high 190-219 mg/dL, High >219 mg/dL, Very high Secondary prevention optimal non HDL Cholesterol levels are recommended to be <100 mg/dL Performed By: #### 3 016-3 ####[facility]ORYCLIA [id number] [address] [place]#### [address]168-7 ####[facility]ORYCLIA [id number] [address] [id number] [address] [place] Cholesterol.total/Choles terol in HDL [Mass ratio] 3.04 {ratio} Normal <5.10 [facility] Comment on above: Order Comment: Speci men Type: BLOOD SPECIMENOrdering Facility: [facility] Address: [address] [place] [address] Performed By: #### 3 016-3 ####[facility]ATORYCLIA [id number] [address] [place]#### 68930-1 ####[facility]ATORYCLIA [id number] [place] [address] [id number] [place] [address] OF [facility] FASTING TIME 12 hrs Normal [facility] Comment on above: Order Comment: Speci men Type: BLOOD SPECIMENOrdering Facility: [facility] Address: [address] [place] [address] Performed By: #### 3 016-3 ####[facility]ATORYCLIA [id number] [address] [place]#### 14607-4 ####[facility]ORATORYCLIA [id number] [place] [id number] [place] [address] [place] Triglyceride [Mass/Vol] 116 mg/dL Normal <150 C [facility] Comment on above: Order Comment: Speci men Type: BLOOD SPECIMENOrdering Facility: [facility] Address: [address] [id number] Result Comment: <150 mg/dL, Normal 150-199 mg/dL, Borderline high 200-499 mg/dL, High >499 mg/dL, Very high Performed By: #### 3 016-3 ####[facility]ORYCLIA [id number] [address] [place]#### 49747-8 ####[facility]ORATORYCLIA [id number] [place] [address] [facility] [id number] [address] TSH SerPl-aCncon 08-04-2024 TSH Qn 2.060 m[IU]/L Normal 0.270-4.20 0 [facility] Comment on above: Order Comment: Speci men Type: BLOOD SPECIMENOrdering Facility: [facility] Address: [address] [place] [address] Performed By: #### 3 016-3 ####[facility] LABORATORYCLIA [id number] [address]#### 19097-7 ####[facility] HOSPITALCLIA [id number] [address] [place] [id number] [facility] [id number] [address] [place] CNOVon 07-28-2024 CNOV Office Visit (FAMMAS ) -------- ABEL LYLES I ([id number]) 1950 F Date Time Provider Department 07/28/24 11:30 AM MELISSA LOPES FAMMAS During your visit today, we recorded the following information about you: Temperature Pulse Respiration Blood pressure 96.9 degrees 68/minute 18/minute 132/80 Weight Height 102.1 kg 1.6 m Mario Frye LPN 08/03/2024 1:50 PM Signed [employer] Hepatitis C Screening declined Bone Density Screening [facility] Completed Influenza Vaccine(1) daksha Choudhary Covid-19 Vaccine( season) [facility] [place] Mammogram Screening due on 08/06/2024 - ordered Participation of a fellow, resident, medical student, or advanced practice provider student in performing the sensitive examination was discussed with the patient or authorized leather goods sales representative. The patient or authorized leather goods sales representative has agreed to proceed with the sensitive examination. (Sensitive examination includes inspection and/or palpation of the breasts, pelvis, prostate and anorectal regions) Mario Frye LPN July 28, 2024 11:31 AM Melissa Lopes MD 08/03/2024 1:50 PM Signed Subjective Abel Lyles is a 74 year old female. Abel presents today for her annual Medicare wellness visit. Additionally she follows up for multiple medical problems. See list. Her chronic medical problems been stable. Her blood pressures been under good control on her current medication. TSH has been therapeutic on her current regimen for treatment of her hypothyroidism. Mood and anxiety improved on current medications. She is tolerating this well. She remains on Creon for treatment of pancreatic insufficiency. She has had improved symptoms. And decreased diarrhea. Reflux symptoms are improved on Prilosec. She is followed by rheumatology for her inflammatory polyarthritis. Review of Systems Constitutional: Negative. HENT: Negative. Eyes: Negative. Respiratory: Negative. Cardiovascular: Negative. Gastrointestinal: Negative. Endocrine: Negative. Genitourinary: Negative. Musculoskeletal: Negative. Skin: Negative. Allergic/Immunologic: Negative. Neurological: Negative. Hematological: Negative. Psychiatric/Behavioral: Negative. PAST SURGICAL HISTORY Procedure Laterality Date ARTHRP KNE CONDYLEANDPLATU MEDIALANDLAT COMPARTMENTS Knee replacement, total, both knee's PAST SURGICAL HISTORY OF cholecystecomy PAST SURGICAL HISTORY OF stent in sphincter of ode PAST SURGICAL HISTORY OF tubal ligation PAST SURGICAL HISTORY OF right foot bunion surgery PAST MEDICAL HISTORY Diagnosis Date Hypothyroidism PMH - PAST MEDICAL HISTORY OF seasonal allergies PMH - PAST MEDICAL HISTORY OF tension headaches PMH - PAST MEDICAL HISTORY OF tension in shoulders PMH - PAST MEDICAL HISTORY OF pancreatitis PMH - PAST MEDICAL HISTORY OF ibs PMH - PAST MEDICAL HISTORY OF chronic epigastric pain PMH - PAST MEDICAL HISTORY OF reset broken nose PMH - PAST MEDICAL HISTORY OF arthritis PMH - PAST MEDICAL HISTORY OF depression FAMILY HISTORY Problem Relation Age of Onset Cancer Mother lung related to smoking None Father unknown GI Brother gallbladder removed GI Brother other brother on disability unknown why Cancer Brother Testicular Thyroid Maternal Grandmother Diabetes Maternal Uncle Diabetes Maternal Uncle Social History Tobacco Use Smoking status: Never Passive exposure: Never Smokeless tobacco: Never Vaping Use Vaping status: Never Used Substance Use Topics Alcohol use: Yes Comment: occassionally Drug use: Never ALLERGIES Allergen Reactions Soap Rash With Ann Marie and Tide specifically. Seasonal Allergies Unknown Coughing and congestion Grass Pollen Unknown House Dust Rash Tree, [place] Rash MEDICATIONS: valsartan (DIOVAN) 160 mg tablet Take 1 tablet by mouth once daily. busPIRone (BUSPAR) 7.5 mg tablet Take 1.5 tablets by mouth two times a day. DULoxetine (CYMBALTA) 60 mg capsule Take 1 capsule by mouth once daily. brexpiprazole (REXULTI) 1 mg tablet Take 1.5 tablets by mouth once daily. clonazePAM (KLONOPIN) 0.5 mg tablet Take 1 tablet by mouth at bedtime as needed for anxiety (and sleep difficulties) for up to 30 days. omeprazole (PRILOSEC) 20 mg capsule Take 20 mg by mouth once daily. meloxicam (MOBIC) 15 mg tablet Take 15 mg by mouth once daily. dicyclomine (BENTYL) 10 mg capsule three times a day. ookzjt-kufmycjy-usoddvb (CREON) 36,000-114,000- 180,000 unit delayed release capsule Take by mouth three times daily with meals. hydrOXYchloroQUINE (PLAQUENIL) 200 mg tablet once daily. cholecalciferol (VITAMIN D3) 400 unit tab once daily. multivitamin tablet Take 1 tablet by mouth once daily. acetaminophen (TYLENOL) 500 mg tablet Take by mouth every 8 hours as needed. gabapentin (NEURONTIN) 300 mg capsule González (more content not included)... [facility] Deepti 07-01-2024 [facility] Telephone (BENIGNOA) -------- ABEL LYLES I ([id number]) 1950 F Date Time Provider Department 07/01/24 MARIANNE, MELISSA NICOLASA FAMPLA During your visit today, we recorded the following information about you: Allergies As of Date: 07/01/2024 Noted Allergy Reaction SOAP 05/15/2023 2 - Rash Comments: With Ann Marie and Tide specifically. SEASONAL ALLERGIES 05/15/2023 16 - Unknown Comments: Coughing and congestion GRASS POLLEN 07/18/2023 16 - Unknown HOUSE DUST 01/29/2024 2 - Rash TREE, OAK 01/29/2024 2 - Rash Date Reviewed: 07/01/2024 Reviewed by: Fatuma Jewell LPN - Fully Assessed Prescriptions as of 07/01/2024 - busPIRone (BUSPAR) 7.5 mg tablet Take 1.5 tablets by mouth two times a day. - DULoxetine (CYMBALTA) 60 mg capsule Take 1 capsule by mouth once daily. - brexpiprazole (REXULTI) 1 mg tablet Take 1.5 tablets by mouth once daily. - clonazePAM (KLONOPIN) 0.5 mg tablet Take 1 tablet by mouth at bedtime as needed for anxiety (and sleep difficulties) for up to 30 days. - SYNTHROID 100 mcg tablet TAKE 1 TABLET ONCE DAILY - omeprazole (PRILOSEC) 20 mg capsule Take 20 mg by mouth once daily. - meloxicam (MOBIC) 15 mg tablet Take 15 mg by mouth once daily. - dicyclomine (BENTYL) 10 mg capsule three times a day. - yjcwxl-tdubycwv-fmczycp (CREON) 36,000-114,000- 180,000 unit delayed release capsule Take by mouth three times daily with meals. - hydrOXYchloroQUINE (PLAQUENIL) 200 mg tablet once daily. - cholecalciferol (VITAMIN D3) 400 unit tab once daily. - multivitamin tablet Take 1 tablet by mouth once daily. - acetaminophen (TYLENOL) 500 mg tablet Take by mouth every 8 hours as needed. - gabapentin (NEURONTIN) 300 mg capsule Take 400 mg by mouth three times daily. Problem List As Of Date 07/01/2024 Noted Resolved ABDOMINAL PAIN GENERALIZED [R10.84] 09/04/2007 IRRITABLE COLON [K58.9] 09/11/2008 RECURR DEPR PSYCHOS-MOD [F33.1] 09/15/2008 Unilateral primary osteoarthritis of first carp*08/08/2018 Undifferentiated connective tissue disease (HCC*07/03/2022 Systolic murmur [R01.1] 03/09/2020 Swelling of upper extremity [M79.89] 09/15/2019 Spinal stenosis [M48.00] 11/29/2016 Rotator cuff impingement syndrome [M75.40] 07/03/2022 Rotator cuff arthropathy of both shoulders [M12*07/05/2020 Primary osteoarthritis of both hips [M16.0] 02/07/2018 Presence of left artificial hip joint [Z96.642] 03/05/2019 Pes planus [M21.40] 03/29/2015 Pain in wrist [M25.539] 09/15/2019 Other specified abnormal immunological findings*07/03/2022 Trochanteric bursitis [M70.60] 11/29/2016 Balance problems [R26.89] 08/22/2017 Chronic cough [R05.3] 03/07/2018 Chronic lower back pain [M54.50, G89.29] 07/03/2022 Depression [F32.A] 12/28/2016 Dysuria [R30.0] 10/20/2020 Finding of above normal blood pressure [R03.0] 10/07/2018 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] 12/05/2019 Gluteal tendinitis [M76.00] 05/27/2019 H/O Spinal surgery [Z98.890] 01/02/2020 History of total knee replacement [Z96.659] 08/21/2018 Rotator cuff syndrome [M75.100] 02/17/2019 Inflammation of stomach and intestine [K52.9] 07/03/2022 Primary localized osteoarthrosis of ankle and f*07/03/2022 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 [address] Echo Complete 06/13/24 0846 MR#: [id number] Acct: [id number] Name: WANDAABEL LOERA Rep #: [id number] : 1950 73 From: Kassidy Hazel MD Attending Dr: Dr. Kassidy Hazel MD Status: REG CLI Ordering Dr: Kassidy Hazel MD Date: 06/13/24 Location: [facility] Sex: F C Admitted: Reason For Study: Dyspnea/SOB Procedure This was a 2D Doppler, Color Flow transthoracic echocardiogram. Myocardial strain analysis was performed in this exam to aid in the assessment of cardiac function. Exam performed in department. Left Ventricle Normal LV size. Mild concentric left ventricular hypertrophy. The global longitudinal strain = -20.4 % (normal). The left ventricular ejection fraction is 65 %. Stage 1 diastolic dysfunction. Right Ventricle Normal right ventricle. Atria The left atrium is mildly enlarged. Normal right atrium. Mitral Valve Trivial mitral valve insufficiency. Tricuspid Valve Mild tricuspid valve insufficiency. Right ventricular systolic pressure estimated to be 39 mmHg. Aortic Valve Trisinus/trileaflet aortic valve. Pulmonic Valve The pulmonic valve is not well visualized. Great Vessels Normal sized aortic root. Pericardium/Pleural Trivial to small loculated posterior pericardial effusion. MMode/2D Measurements Calculations LVIDd: 4.7 cm IVSd: 1.4 cm asc Aorta Diam: 3.0 cm LVIDs: 2.4 cm LVPWd: 1.3 cm RVDd: 3.4 cm FS: 48.8 % LAV(MOD-bp): 50.9 ml LVAd ap4: 27.2 cm2 SV(MOD-sp4): 53.5 ml LAV(MOD-bp) Indexed: 25.3 ml/m2 LVLd ap4: 7.3 cm SI(MOD-sp4): 26.5 ml/m2 LAV(MOD-sp2): 29.2 ml EDV(MOD-sp4): 80.4 ml LAV(MOD-sp4): 65.4 ml EDV(sp4-el): 86.0 ml LVAs ap4: 14.0 cm2 LVLs ap4: 6.0 cm ESV(MOD-sp4): 26.9 ml ESV(sp4-el): 27.6 ml EF(MOD-sp4): 66.5 % EF(sp4-el): 67.9 % SV(sp4-el): 58.4 ml LA A4 area: 22.3 cm2 LA dimension(2D): 4.2 cm RA A4 area: 11.8 cm2 TAPSE: 2.3 cm Time Measurements MV dec time: 0.20 sec Doppler Measurements Calculations MV E max elsie: 77.3 cm/sec Lat Peak E' Elsie: 5.6 cm/sec Med Peak E' Elsie: 5.1 cm/sec MV A max elsie: 82.7 cm/sec E/E' lat: 13.7 E/E' med: 15.2 MV E/A: 0.93 Ao V2 max: 144.5 cm/sec LV V1 max: 109.3 cm/sec MV dec slope: 390.9 cm/sec2 Ao max P.4 mmHg LV V1 max P.8 mmHg Ao V2 mean: 100.2 cm/sec Ao mean P.4 mmHg Ao V2 VTI: 37.4 cm PA V2 max: 98.2 cm/sec PI end-d elsie: 87.5 cm/sec TR max elsie: 291.5 cm/sec TR max P.0 mmHg ECHO/Echo Complete Interpretation Summary Mild concentric left ventricular hypertrophy. The global longitudinal strain = -20.4 % (normal). The left ventricular ejection fraction is 65 %. Stage 1 diastolic dysfunction. Mild tricuspid valve insufficiency. Right ventricular systolic pressure estimated to be 39 mmHg. Trivial to small loculated posterior pericardial effusion. Ordering Physician: Kassidy Hazel Referring Physician: Melissa Lopes Performed By: Bambi Mclean RDCS, RVT 06/13/24 1341 Date Kassidy Hazel MD CC: Dr. Kassidy Hazel MD; Dr. Melissa Lopes MD Date Dictated: 06/13/24 0846 Date Transcribed: 06/13/24 1341 Tax Professional: Signed Normal [facility] Stress Reporton 06-13-2024 Stress Report [facility] Cardi[facility] Services [address] [place] [address] MR#: [id number] Acct: [id number] Name: ABEL LYLES Rep #: [id number] : 1950 73 From: Kassidy Hazel MD Primary Care: Dr. Melissa Lopes MD Status: REG CLI Referring Dr: Kassidy Hazel MD Sex: F C Stress Test Report Date: 06/13/2024 Procedure: Pharmacologic stress nuclear imaging study Indications: Abnormal ECG Consent: Per the patient Procedure: The patient underwent pharmacologic (Regadenoson 0.4mg ) evaluation with a peak heart rate of 68 beats per minute (46%predicted maximal heart rate) and a peak blood pressure of 198/72 mmHg. The baseline ECG demonstrated sinus rhythm. The peak pharmacologic ECG demonstrated no ischemic changes. There were no cardiac dysrhythmias pretest, during pharmacologic infusion, or recovery. There was no complaint of chest discomfort during pharmacologic infusion or recovery. The patient was injected with 14.4 millicuries of technetium 99m Cardiolite and subsequently rest SPECT Cardiolite nuclear imaging was obtained in the horizontal long, vertical long, and short axis views. The patient underwent pharmacologic (Regadenoson) evaluation. The patient was injected with 43.7 millicuries of technetium 99m Cardiolite and subsequently stress SPECT Cardiolite nuclear imaging was obtained in the horizontal long, vertical long, and short axis views. A gated Cardiolite study at peak stress was obtained. The examination was stopped secondary to completion of protocol. Rest and stress SPECT Cardiolite nuclear imaging status post realignment, normalization, and attenuation correction demonstrate no fixed or reversible perfusion defects. There is end systolic thickening and brightening. The gated Cardiolite study demonstrates myocardial thickening and inward wall motion. The reported LVEF is 72%. Impression: 1. Pharmacologic (Regadenoson) evaluation 2. Peak pharmacologic ECG with no diagnostic ischemic changes. 3. There were no cardiac dysrhythmias pretest, during pharmacologic infusion, or recovery. 5. Rest and stress SPECT Cardiolite nuclear imaging demonstrate relative uniform tracer uptake and myocardial perfusion appearing within normal limits. 6. The gated Cardiolite study reports an LVEF of 72%. This note was generated with Web[employer]ite software. It may contain incorrect words, spelling, and punctuation that were not noted in checking the note before signing. 06/13/24 1350 Date Kassidy Hazel MD CC: Dr. Kassidy Hazel MD; Dr. Melissa Lopes MD Date Dictated: 06/13/241347 Date Transcribed: 06/13/241347 Tax Professional: AR Signed Normal [facility] Basic Metabolic Profile (BMP )on 06-10-2024 BUN/CRE 19.7 RATIO Normal 10-20 [facility] Comment on above: Performed By: #### L 500.2500 #### [facility] [address] [place], [address] CA,Total 8.9 mg/dL Normal 8.5-10.1 [facility] Comment on above: Performed By: #### L 500.2500 #### [facility] [address], [address] Chloride [Moles/Vol] 109 mmol/L High 98-107 [facility] Comment on above: Performed By: #### L 500.2500 #### [facility] [address] [place], [address] CO2 [Moles/Vol] 26.0 mmol/L Normal 21.0-32.0 [facility] Comment on above: Performed By: #### L 500.2500 #### [facility] [address] [place], [address] Creatinine [Mass/Vol] 0.86 mg/dL Normal 0.55-1.02 [facility] Comment on above: Result Comment: The validity of the calculated GFR GFRAA in patients over 70 years has not been determined. Clinical correlation is essential. Performed By: #### L 500.2500 #### [facility] [address] [place], [address] EST GFR - AA 82 mL/min Normal >60 [facility] Comment on above: Result Comment: Afri can Congolese GFR Calc Performed By: #### L 500.2500 #### [facility] [address] [place], [address] GAP 6 Normal 5-15 [facility] Comment on above: Performed By: #### L 500.2500 #### [facility] [address] [place], [address] GFR/1.73 sq M.predicted among non-blacks MDRD (S/P/Bld) [Vol rate/Area] 68 mL/min/{1.73_m2} Normal >60 [facility] Comment on above: Result Comment: Non- GFR Calc Performed By: #### L 500.2500 #### [facility] [address] [place], [address] Glucose [Mass/Vol] 95 mg/dL Normal 74-106 [facility] Comment on above: Performed By: #### L 500.2500 #### [facility] [address] [place], [address] Potassium [Moles/Vol] 4.0 mmol/L Normal 3.5-5.1 [facility] Comment on above: Performed By: #### L 500.2500 #### [facility] [address] [place], [address] Sodium [Moles/Vol] 140 mmol/L Normal 136-145 [facility] Comment on above: Performed By: #### L 500.2500 #### [facility] [address] [place], [address] Urea nitrogen [Mass/Vol] 17 mg/dL Normal 7-18 [facility] Comment on above: Performed By: #### L 500.2500 #### [facility] [address] [place], [address] Blood urea nitrogen (BUN)/cr eatinine ratioOrdered By: Kassidy Hazel on 06-10-2024 Urea nitrogen/Creatinine [Mass ratio] 19.7 mg/mg 10-20 [facility] Carbon dioxide measurementOr dered By: Kassidy Hazel on 06-10-2024 CO2 [Moles/Vol] 26.0 mmol/L 21.0-32.0 [facility] Chloride measurementOrdered By: Kassidy Hazel on 06-10-2024 Chloride [Moles/Vol] 109 mmol/L High 98-107 [facility] Estimated glomerular filtrat ion rate (GFR) AmericanOrdered By: Kassidy Hazel on 06-10-2024 Estimated GFR (MDRD) Amer 82 mL/min >60 [facility] Comment on above: GFR Calc Glomerular filtration rate ( GFR) estimationOrdered By: Kassidy Hazel on 06-10-2024 Estimated GFR (MDRD) Non-Af Amer 68 mL/min >60 [facility] Comment on above: Non- GFR Calc Glucose measurementOrdered B y: Kassidy Hazel on 06-10-2024 Glucose [Mass/Vol] 95 mg/dL 74-106 [facility] Potassium measurementOrdered By: Kassidy Hazel on 06-10-2024 Potassium [Moles/Vol] 4.0 mmol/L 3.5-5.1 [facility] Serum anion gap measurementO rdered By: Kassidy Hazel on 06-10-2024 Anion gap [Moles/Vol] 6 mmol/L 5-15 [facility] Serum or plasma calcium luciana urement (mass/volume)Ordered By: Kassidy Hazel on 06-10-2024 Calcium [Mass/Vol] 8.9 mg/dL 8.5-10.1 [facility] Serum or plasma creatinine m easurement (mass/volume)Ordered By: Kassidy Hazel on 06-10-2024 Creatinine [Mass/Vol] 0.86 mg/dL 0.55-1.02 [facility] Comment on above: The validity of the calculated GFR & GFRAA in patients over 70 years has not been determined. Clinical correlation is essential. Serum or plasma urea nitroge n measurement (mass/volume)Ordered By: Kassidy Hazel on 06-10-2024 Urea nitrogen [Mass/Vol] 17 mg/dL 7-18 [facility] Sodium levelOrdered By: Aguilar Hazel on 06-10-2024 Sodium [Moles/Vol] 140 mmol/L 136-145 [facility] Office Visit Report [facility] [place] [address] OFFICE VISIT Date of Service: 05/30/24 MR#: [id number] Acct: [id number] Patient: ABEL LYLES Rep #: [id number] : 1950 Provider: Dr. Kassidy Hazel MD Age/Sex: 73/F Location[place] [facility] Status: Signed Intake Vital Signs 05/15/24 08:34 05/30/24 08:39 Height 5 ft 3 in Weight: 219 lb BMI 38.7 BP 149/72 H 129/66 H Blood Pressure Location Lt brachial Lt brachial Position Sitting Sitting Respiration 18 16 Pulse 68 51 L Pulse Source NIBP NIBP Comment Initial BP-141/73; HR: 53 Intake Visit Reasons: 2 WK BP Check Chief Complaint: IBS Allergies grass pollen Allergy (Mild, Verified 05/15/24 10:10) Other house dust Allergy (Mild, Verified 05/15/24 10:10) Other oak Allergy (Mild, Verified 05/15/24 10:10) Other Seasonal Allergies: Uncoded Allergy (Mild, Verified 05/15/24 10:10) nasal congestion soap Adverse Reaction (Mild, Verified 05/15/24 10:10) Rash Have you fallen in the past year?: No Nursing Note Pt in for 1wk BP check. Stated she started taking Valsartan as ordered on 05/24/24 when it arrived via mail delivery. No signs of acute pain or discomfort voiced or noted. BP= 141/73; HR= 53. This RN waited and maintained pleasant conversation for around 5-10min, then rechecked BP in the same arm, same location. Results as follows: BP= 129/66; HR= 51 Clinical Quality Measures Falls Risk Screening/Assistive Devices Have you fallen in the past year?: No 07/10/24 1126 Date Kassidy Hazel MD Cosigner Signature: Date (if applicable) CC: Normal [facility] 12 Lead EKG performed by [facility] on 05-15-2024 12 Lead EKG performed by [facility] [address] [place] [address] 12 Lead EKG performed by [facility] 05/15/24906 MR#: [id number] Acct: [id number] Name: ABEL LYLES Rep #: [id number] : 1950 73 From: Kassidy Hazel MD Attending Dr: Dr. Kassidy Hazel MD Status: DEP AMB Ordering Dr: Kassidy Hazel MD Date: 05/15/24 Location: [facility] Sex: F C Admitted: [facility]/12 Lead EKG performed by [facility] ECG Report Interpretation --Sinus Rhythm Voltage criteria for LVH (R(I)+S(III) exceeds 2.50 mV) -Voltage criteria w/o ST/T abnormality may be normal. -Nonspecific ST depression -Nondiagnostic. ABNORMAL Electronically signed on 07/07/2024 at 11:[address] Kassidy Hazel [employer] Software Version [id number] 07/07/24 1135 Date Kassidy Hazel MD CC: Dr. Melissa Lopes MD Date Dictated: 05/15/24906 Date Transcribed: 05/15/24906 Tax Professional: GEOVANNA Signed Normal [facility] Cardiology Visit Reporton Cardiology Visit Report [facility] [address] [place] [address] OFFICE VISIT Date of Service: 05/15/24 MR#: [id number] Acct: [id number] Name: ABEL LYLES Rep #: [id number] : 1950 Provider: Dr. Kassidy Hazel MD Age/Sex: 73/F Location: [facility] Status: Signed HPI HPI History of Present Illness Details: This very pleasant lady has been referred to us for her hypertension and evaluation of cardiovascular risk for her proposed foot surgery. Patient denies any history of heart disease. She denies any chest pains either at rest or with exertion. She has been having shortness of breath with moderate to strenuous exertion. Per her, this remains unchanged. Denies any orthopnea. No PND. No ankle edema. No palpitations. She was only recently noted to be running high blood pressure. Denies any severe headaches. No visual changes. 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 Quality Assurance Required: No Accompanied by: Self Is patient in pain?: Yes (Right foot) Allergies grass pollen Allergy (Mild, Verified 05/15/24 10:10) Other house dust Allergy (Mild, Verified 05/15/24 10:10) Other oak Allergy (Mild, Verified 05/15/24 10:10) Other Seasonal Allergies: Uncoded Allergy (Mild, Verified 05/15/24 10:10) nasal congestion soap Adverse Reaction (Mild, Verified 05/15/24 10:10) Rash Medications ???Medication ???Instructions ???Recorded ???Confirmed ???Type duloxetine 60 mg capsule,delayed 60 mg PO QHS 07/29/18 05/15/24 History release hydroxychloroquine 200 mg tablet 200 mg PO QHS arthritis 07/29/18 05/15/24 History (Plaquenil) levothyroxine 100 mcg tablet 100 mcg PO DAILY 07/29/18 05/15/24 History (Synthroid) buspirone 7.5 mg tablet 7.5 mg PO BID 11/28/21 05/12/24 History gabapentin 100 mg capsule 400 mg PO TID 11/28/21 05/15/24 History lamotrigine 100 mg tablet 100 mg PO DAILY 11/28/21 05/15/24 History yfxqzt-nqwejwec-fpovrxb See Rx Instructions PO .COMPLEX 08/27/23 05/15/24 Rx 36,000-114,000-180,000 unit #320 caps capsule,delay rel (Creon) meloxicam 15 mg tablet 15 mg PO DAILY 12/18/23 05/15/24 History brexpiprazole 0.5 mg tablet 0.5 mg PO DAILY 01/04/24 05/15/24 History (Rexulti) cholestyramine (with sugar) 4 gram 4 g PO DAILY #348.6 grams 01/31/24 05/15/24 Rx oral powder omeprazole 20 mg capsule,delayed 20 mg PO DAILY #30 caps 02/08/24 05/15/24 Rx release dicyclomine 10 mg capsule 10 mg PO TID #90 caps 03/19/24 05/15/24 Rx acetaminophen 500 mg capsule 500 mg PO Q8 PRN 05/12/24 05/15/24 History cholecalciferol (vitamin D3) 10 10 mcg PO QDAY 05/12/24 05/15/24 History mcg (400 unit) capsule clonazepam 0.5 mg tablet 0.5 mg PO QHS 05/12/24 05/15/24 History multivitamin 1 tab PO QDAY 05/12/24 05/15/24 History Ejection fraction %: 70 Have you fallen in the past year?: No PFSH Medical History Anemia Anxiety Arthritis Back pain Cardiac murmur Depression Diarrhea Difficulty swallowing Easy bruising Hip pain, left History of echocardiogram History of IBS History of steroid therapy Irritable bowel syndrome Non-smoker Pancreatitis Post-menopausal Shortness of breath on exertion Tension headache Thyroid disease Unspecified diffuse connective tissue disease Walker as ambulation aid Wears glasses Wears hearing aid Surgical History History of broken nose History of bunionectomy History of carpal tunnel surgery of left wrist History of carpal tunnel surgery of right wrist History of cataract extraction History of cholecystectomy History of esophagogastroduodenosco py (EGD) History of hip replacement History of knee replacement History of laminectomy Hx of colonoscopy Hx of surgical procedure Hx of thumb surgery Family History Mother Oat cell carcinoma of lung Brother Cancer Grandmother Thyroid disorder Uncle Diabetes Social History household members: none number of children: 2 current occupational status: retired Smoking Status: Never smoker Electronic Cigarette Use: not used alcohol intake: current alcohol intake frequency: other details: occasional use substance use type: does not use ROS Const Const: Positive for fatigue and weakness; Negative for headache(s) or weight gain ENT ENT: Positive for dizziness and balance problems; Negative for headache(s) (more content not included)... Normal [facility] Gastroenterology Visit Repor ton 05-06-2024 Gastroenterology Visit Report [facility] [address] [place] [address] OFFICE VISIT Date of Service: 05/06/24 MR#: [id number] Acct: [id number] Name: ABEL LYLES Rep #: [id number] : 1950 Provider: RICARDO Gsapar Age/Sex: 73/F Location: [facility] Status: Signed Intake Vital Signs 01/08/24 11:43 Height 5 ft 3 in Intake Visit Reasons: 3 M FU Chief Complaint: IBS Allergies No Known Allergies Allergy (Verified 01/08/24 11:42) Medications ???Medication ???Instructions ???Recorded ???Confirmed ???Type duloxetine 60 mg capsule,delayed 60 mg PO QHS 07/29/18 05/06/24 History release hydroxychloroquine 200 mg tablet 200 mg PO QHS arthritis 07/29/18 05/06/24 History (Plaquenil) levothyroxine 100 mcg tablet 100 mcg PO DAILY 07/29/18 05/06/24 History (Synthroid) mirtazapine 15 mg PO/SL QHS 07/12/21 05/06/24 History buspirone 7.5 mg tablet 7.5 mg PO BID 11/28/21 05/06/24 History gabapentin 100 mg capsule 400 mg PO TID 11/28/21 05/06/24 History lamotrigine 100 mg tablet 100 mg PO DAILY 11/28/21 01/04/24 History apxsrw-ofxgdmpr-jpduybw See Rx Instructions PO .COMPLEX 08/27/23 05/06/24 Rx 36,000-114,000-180,000 unit #320 caps capsule,delay rel (Creon) meloxicam 15 mg tablet 15 mg PO DAILY 12/18/23 05/06/24 History sodium sul 1.479 gram-potas ch 12 tab PO PER PKG DIR #24 tabs 12/18/23 01/04/24 Rx 0.188 gram-magnes sul 0.225 gram tablet (Sutab) brexpiprazole 0.5 mg tablet 0.5 mg PO DAILY 01/04/24 01/04/24 History (Rexulti) cholestyramine (with sugar) 4 gram 4 g PO DAILY #348.6 grams 01/31/24 Rx oral powder omeprazole 20 mg capsule,delayed 20 mg PO DAILY #30 caps 02/08/24 05/06/24 Rx release dicyclomine 10 mg capsule 10 mg PO TID #90 caps 03/19/24 05/06/24 Rx Have you fallen in the past year?: No Nurse's Note: OV 05.06.24 Pt here for f/u. Pt reports having flare-ups that happen at least a couple times a month with constipation, nausea and abdominal pain. Pt continues taking Creon, dicyclomine and omeprazole. She is no longer taking Colestipol. [facility] Medical History Wears hearing aid Post-menopausal History of steroid therapy Walker as ambulation aid Arthritis Anemia Back pain Difficulty swallowing Diarrhea Wears glasses Depression Anxiety Thyroid disease Unspecified diffuse connective tissue disease Easy bruising History of IBS Non-smoker Shortness of breath on exertion History of echocardiogram Cardiac murmur Hip pain, left Surgical History Hx of surgical procedure History of esophagogastroduodenosco py (EGD) Hx of colonoscopy Hx of thumb surgery History of carpal tunnel surgery of right wrist History of carpal tunnel surgery of left wrist History of cholecystectomy History of cataract extraction History of bunionectomy History of broken nose History of hip replacement History of laminectomy History of knee replacement Family History Mother Oat cell carcinoma of lung Social History household members: none number of children: 2 current occupational status: retired Smoking Status: Never smoker HPI HPI Chief Complaint: IBS Details: ABEL LYLES, is a 73 F who presents to the office today for f/u. PMH non-healing surgical wound; osteoarthritis; DJD; anxiety/depression. PSH cholecystectomy. *BGI established 07.28.22 with referral from PCP. Alternating constipation with abdominal pain and urgent diarrhea with urgency related incontinence with intermittent episodes of emesis. Stool consistency varies by day (coffee noted as loose stool trigger). Symptoms are interfering with daily life.??? Alternating constipation/diarrhea, biochemical workup and stool testing. Biochemical workup ESR, LDH, folate, TSH, Vit d1,25, T4, gastrin, GAME, DARIAN, ANCA, SURI comp, celiac, IBD profile without pertinent abnormality. CRP H6.50, Vit B12 H1307, T3 L2.1 ? Stool lactoferrin, calprotectin, EP, OP, giardia, C.difficile (formed) WNL.? Elastase L184, fecal fats increased. ? Start Creon Contact 08.25.22 to report that she is having frequent stools with smearing and mild incontinence; stools are not hard but of small amounts and frequent. Recommend Amitiza 8mcg QD. OV 11.16.22 she is no longer taking the amitiza. Creon use continues. She has not had any incontinence. However she continues to have constipation with frequent rectal pressure/need for BM. Loose stoo (more content not included)... Normal [facility] CNOVon 04-29-2024 CNOV Office Visit (PSWSTR ) -------- ABEL LYLES I ([id number]) 1950 F Date Time Provider Department 04/29/24 3:00 PM CATARINA FITCH PSWSTR During your visit today, we recorded the following information about you: Pulse Respiration Blood pressure Weight 60/minute 16/minute 160/50 100.3 kg Catarina Fitch APRN.CNP 05/05/2024 11:10 PM Signed FOLLOW UP - PSYCHIATRIC PROGRESS NOTE PATIENT: Abel Lyles DATE: April 29, 2024 Visit Type:In person All information is from Patient report except when noted. This evaluation is NOT intended for forensic, disability or child custody purposes. Catarina Morillo APRN.LINDA, personally performed the services described in this documentation. All medical record entries made by the LYNDSEY student were at my direction and in my presence. I have reviewed the chart and discharge instructions (if applicable) and agree that the record reflects my personal performance and is accurate and complete. Catarina Fitch APRN.CNP May 05, 2024 11:06 PM CC: Presenting today for follow up regarding psychiatric medication management. HPI: Treatment Plan from Last Visit on 03/25/2024: TREATMENT PLAN: Gradually taper off Lamictal as discussed due to the patient possibly struggling with cognitive side effects from the medication. Continue Rexulti to address depressive symptoms. Continue Cymbalta at the current dose to address anxiety symptoms. Continue Buspar at the same dose to address anxiety symptoms. Utilize Klonopin only as needed to manage severe anxiety and sleep difficulties. Continue individual psychotherapy with her routine provider. Today Abel shares that I think taking away the Lamictal has helped with focus to a certain point. Kaci was d/c'd due to some cognitive issues. States she is upset because her therapist is currently ill and missed several weeks. Unknown when he will return. She has been seeing him weekly for the past 20 years on and off. Voices concern for herself but also for him and whatever he is going through. However, she does report he has been cutting down his hours as he is getting closer to skilled nursing but otherwise he appeared healthy. Doesn't feel that the anxiety hasn't really diminished. However PHQ and WOLFGANG scores today improved compared to last visit. Feels that the recent election has increased her anxiety. Worried about how the outcome will affect her, her family, the country, etc. Shares how last week's gospel in worship were about the end of time and that bad things are going to happen but to remember your david. Shares that it is tough sometimes though. 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 Struggles between wanting to be informed but not letting it increase her anxiety. Feels very tired but then when she goes to bed her brain won't turn off and she has to get up and take a 1/2 of a Klonopin. It was happening nightly for a while but that has decreased recently and she hasn't had any in the past week. Trying other measures to help her sleep-I.e. looking through catalogs. Used to take Remeron for sleep but stopped that a few months ago. Doesn't want to resume it though. Doesn't use the Klonopin often. Last refilled for 15 pills 3 months ago and still has some left. Taking Cymbalta as ordered. Feels anxious about upcoming foot surgery. Has ruminating thoughts at times. Started discussing holidays and grandson's upcoming birthday next week. Daughter is going away for New Years Angelica with her and father. However, she did agree to come to Abel's home and stay with her post op up to 3 month as needed and said they'll celebrate child's birthday and holidays when she gets home. Abel made plans to visit a friend on instead. Discussed using Buspar 2-3 times per day for anxiety or increasing the dose. Interval Progress: Same PATIENT DATA: Generalized Anxiety Disorder Scale (WOLFGANG-7) 01/29/2024 03/25/2024 04/28/2024 WOLFGANG - 7 SCORES Score 9 20 11 (0-4) minimal anxiety, (5-9) mild anxiety, (10-14) moderate anxiety, (15-21) severe anxiety Patient Health Questionnaire (PHQ-9) 01/29/2024 03/25/2024 04/28/2024 PHQ-9 Score 10 20 11 (0-4) minimal depression, (5-9) mild depression, (10-14) moderate depression, (15-19) moderately severe depression, (20-27) severe depression PAST MEDICAL HISTORY Diagnosis Date Hypothyroidism PMH - PAST MEDICAL HISTORY OF seasonal allergies PMH - PAST MEDICAL HISTORY OF tension headaches PMH - PAST MEDICAL HISTORY OF tension in shoulders PMH - PAST MEDICAL HISTORY OF pancreatitis PMH - PAST MEDICAL HISTORY OF ibs PMH - PAST MEDICAL HISTORY OF chronic epigastric pain PMH - PAST MEDICAL HISTORY OF reset broken nose PMH - PAST MEDICAL HISTORY OF arthritis PMH - PAST MEDICAL HISTORY OF depression PAST SURGICAL HISTORY Procedure (more content not included)... Normal [facility] 04-23-2024 CNPN Telephone (PSWSTR) -------- ABEL LYLES I ([id number]) 1950 F Date Time Provider Department 04/23/24 CATARINA FITCH PSWSTR During your visit today, we recorded the following information about you: Bobbi Lindsey RN 04/23/2024 3:31 PM Signed Patient calls and states that she is feeling ok. Patient states that she is almost done with the Lamictal. Patient states that her brain is not as foggy. ARAMIS Olmstead Nishi J, POWDER ROOM ATTENDANT.[facility] 04/25/2024 8:42 AM Signed Appreciate the update. Glad to see that the patient is noticing improvement in her cognitive functioning. Allergies As of Date: 04/23/2024 Noted Allergy Reaction SOAP 05/15/2023 2 - Rash Comments: With Ann Marie and Tide specifically. SEASONAL ALLERGIES 05/15/2023 16 - Unknown Comments: Coughing and congestion GRASS POLLEN 07/18/2023 16 - Unknown HOUSE DUST 01/29/2024 2 - Rash TREE, OAK 01/29/2024 2 - Rash Date Reviewed: 04/16/2024 Reviewed by: Mario Frye LPN - Fully Assessed Reason for Visit: Patient Update [1234] Prescriptions as of 04/29/2024 - omeprazole (PRILOSEC) 20 mg capsule Take 20 mg by mouth once daily. - lamoTRIgine (LAMICTAL) 100 mg tablet Take 1 tablet by mouth once daily for 14 days, THEN 0.5 tablets once daily for 14 days. Discontinue after.. - brexpiprazole (REXULTI) 1 mg tablet Take 1 tablet by mouth once daily. - DULoxetine (CYMBALTA) 60 mg capsule Take 1 capsule by mouth once daily. - clonazePAM (KLONOPIN) 0.5 mg tablet Take 1 tablet by mouth at bedtime as needed for anxiety (and sleep difficulties) for up to 30 days. - busPIRone (BUSPAR) 7.5 mg tablet Take 1 tablet by mouth two times a day. - meloxicam (MOBIC) 15 mg tablet Take 15 mg by mouth once daily. - levothyroxine (SYNTHROID) 100 mcg tablet Take 1 tablet by mouth once daily. - dicyclomine (BENTYL) 10 mg capsule three times a day. - rfbdgs-jybgnbxd-lfjuiou (CREON) 36,000-114,000- 180,000 unit delayed release capsule Take by mouth three times daily with meals. - hydrOXYchloroQUINE (PLAQUENIL) 200 mg tablet once daily. - cholecalciferol (VITAMIN D3) 400 unit tab once daily. - multivitamin tablet Take 1 tablet by mouth once daily. - acetaminophen (TYLENOL) 500 mg tablet Take by mouth every 8 hours as needed. - gabapentin (NEURONTIN) 300 mg capsule Take 400 mg by mouth three times daily. Problem List As Of Date 04/23/2024 Noted Resolved ABDOMINAL PAIN GENERALIZED [R10.84] 09/04/2007 IRRITABLE COLON [K58.9] 09/11/2008 RECURR DEPR PSYCHOS-MOD [F33.1] 09/15/2008 Unilateral primary osteoarthritis of first carp*08/08/2018 Undifferentiated connective tissue disease (HCC*07/03/2022 Systolic murmur [R01.1] 03/09/2020 Swelling of upper extremity [M79.89] 09/15/2019 Spinal stenosis [M48.00] 11/29/2016 Rotator cuff impingement syndrome [M75.40] 07/03/2022 Rotator cuff arthropathy of both shoulders [M12*07/05/2020 Primary osteoarthritis of both hips [M16.0] 02/07/2018 Presence of left artificial hip joint [Z96.642] 03/05/2019 Pes planus [M21.40] 03/29/2015 Pain in wrist [M25.539] 09/15/2019 Other specified abnormal immunological findings*07/03/2022 Trochanteric bursitis [M70.60] 11/29/2016 Balance problems [R26.89] 08/22/2017 Chronic cough [R05.3] 03/07/2018 Chronic lower back pain [M54.50, G89.29] 07/03/2022 Depression [F32.A] 12/28/2016 Dysuria [R30.0] 10/20/2020 Finding of above normal blood pressure [R03.0] 10/07/2018 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] 12/05/2019 Gluteal tendinitis [M76.00] 05/27/2019 H/O Spinal surgery [Z98.890] 01/02/2020 History of total knee replacement [Z96.659] 08/21/2018 Rotator cuff syndrome [M75.100] 02/17/2019 Inflammation of stomach and intestine [K52.9] 07/03/2022 Primary localized osteoarthrosis of ankle and f*07/03/2022 senior living current use of therapeutic drug [Z79.*07/03/2022 Osteoarthrosis [M19.90] 12/28/2016 Encounter Status:Closed by BOBBI LINDSEY on 04/29/24 Normal [facility] Deepti 04-21-2024 CNPN Telephone ([facility]) -------- ABEL LYLES I ([id number]) 1950 F Date Time Provider Department 04/21/24 MELISSA LOPES During your visit today, we recorded the following information about you: Marisol Russell MA 04/21/2024 11:37 AM Signed Patient calling regarding her cardiology referral, she states she called about the referral and was told that it could take months for her to get in to see a patternator and was told that you could order the ECHO. She is requesting the cardiology referral be sent to [facility] location to see if she can get a sooner appt Marisol Russell MA April 21, 2024 11:35 AM Melissa Lopes MD 04/21/2024 12:55 PM Signed Okay to change location to [place] Mario Frye LPN 04/22/2024 8:06 AM Signed Referral has already been sent to [place] on 04-18-2024 Mario Frye LPN April 22, 2024 8:06 AM Allergies As of Date: 04/21/2024 Noted Allergy Reaction SOAP 05/15/2023 2 - Rash Comments: With Ann Marie and Tide specifically. SEASONAL ALLERGIES 05/15/2023 16 - Unknown Comments: Coughing and congestion GRASS POLLEN 07/18/2023 16 - Unknown HOUSE DUST 01/29/2024 2 - Rash TREE, OAK 01/29/2024 2 - Rash Date Reviewed: 04/16/2024 Reviewed by: Mario Frye LPN - Fully Assessed Reason for Visit: Orders [681] Prescriptions as of 04/22/2024 - omeprazole (PRILOSEC) 20 mg capsule Take 20 mg by mouth once daily. - lamoTRIgine (LAMICTAL) 100 mg tablet Take 1 tablet by mouth once daily for 14 days, THEN 0.5 tablets once daily for 14 days. Discontinue after.. - brexpiprazole (REXULTI) 1 mg tablet Take 1 tablet by mouth once daily. - DULoxetine (CYMBALTA) 60 mg capsule Take 1 capsule by mouth once daily. - clonazePAM (KLONOPIN) 0.5 mg tablet Take 1 tablet by mouth at bedtime as needed for anxiety (and sleep difficulties) for up to 30 days. - busPIRone (BUSPAR) 7.5 mg tablet Take 1 tablet by mouth two times a day. - meloxicam (MOBIC) 15 mg tablet Take 15 mg by mouth once daily. - levothyroxine (SYNTHROID) 100 mcg tablet Take 1 tablet by mouth once daily. - dicyclomine (BENTYL) 10 mg capsule three times a day. - bnhfod-djjubmcu-rvgpztg (CREON) 36,000-114,000- 180,000 unit delayed release capsule Take by mouth three times daily with meals. - hydrOXYchloroQUINE (PLAQUENIL) 200 mg tablet once daily. - cholecalciferol (VITAMIN D3) 400 unit tab once daily. - multivitamin tablet Take 1 tablet by mouth once daily. - acetaminophen (TYLENOL) 500 mg tablet Take by mouth every 8 hours as needed. - gabapentin (NEURONTIN) 300 mg capsule Take 400 mg by mouth three times daily. Problem List As Of Date 04/21/2024 Noted Resolved ABDOMINAL PAIN GENERALIZED [R10.84] 09/04/2007 IRRITABLE COLON [K58.9] 09/11/2008 RECURR DEPR PSYCHOS-MOD [F33.1] 09/15/2008 Unilateral primary osteoarthritis of first carp*08/08/2018 Undifferentiated connective tissue disease (HCC*07/03/2022 Systolic murmur [R01.1] 03/09/2020 Swelling of upper extremity [M79.89] 09/15/2019 Spinal stenosis [M48.00] 11/29/2016 Rotator cuff impingement syndrome [M75.40] 07/03/2022 Rotator cuff arthropathy of both shoulders [M12*07/05/2020 Primary osteoarthritis of both hips [M16.0] 02/07/2018 Presence of left artificial hip joint [Z96.642] 03/05/2019 Pes planus [M21.40] 03/29/2015 Pain in wrist [M25.539] 09/15/2019 Other specified abnormal immunological findings*07/03/2022 Trochanteric bursitis [M70.60] 11/29/2016 Balance problems [R26.89] 08/22/2017 Chronic cough [R05.3] 03/07/2018 Chronic lower back pain [M54.50, G89.29] 07/03/2022 Depression [F32.A] 12/28/2016 Dysuria [R30.0] 10/20/2020 Finding of above normal blood pressure [R03.0] 10/07/2018 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] 12/05/2019 Gluteal tendinitis [M76.00] 05/27/2019 H/O Spinal surgery [Z98.890] 01/02/2020 History of total knee replacement [Z96.659] 08/21/2018 Rotator cuff syndrome [M75.100] 02/17/2019 Inflammation of stomach and intestine [K52.9] 07/03/2022 Primary localized osteoarthrosis of ankle and f*07/03/2022 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 Mcdaniel through [facility] Mario Frye LPN April 18, 2024 11:53 AM Mario Frye LPN 05/07/2024 12:36 PM Signed Information refaxed to Dr. Mcdaniel per fax request received at office Mario Frye LPN May 07, 2024 12:36 PM Allergies As of Date: 04/18/2024 Noted Allergy Reaction SOAP 05/15/2023 2 - Rash Comments: With Ann Marie and Tide specifically. SEASONAL ALLERGIES 05/15/2023 16 - Unknown Comments: Coughing and congestion GRASS POLLEN 07/18/2023 16 - Unknown HOUSE DUST 01/29/2024 2 - Rash TREE, OAK 01/29/2024 2 - Rash Date Reviewed: 04/16/2024 Reviewed by: Mario Frye LPN - Fully Assessed Reason for Visit: Referral Information [9294] Prescriptions as of 05/07/2024 - SYNTHROID 100 mcg tablet TAKE 1 TABLET ONCE DAILY - clonazePAM (KLONOPIN) 0.5 mg tablet Take 1 tablet by mouth at bedtime as needed for anxiety (and sleep difficulties) for up to 30 days. - busPIRone (BUSPAR) 7.5 mg tablet Take 1.5 tablets by mouth two times a day. - omeprazole (PRILOSEC) 20 mg capsule Take 20 mg by mouth once daily. - brexpiprazole (REXULTI) 1 mg tablet Take 1 tablet by mouth once daily. - DULoxetine (CYMBALTA) 60 mg capsule Take 1 capsule by mouth once daily. - meloxicam (MOBIC) 15 mg tablet Take 15 mg by mouth once daily. - dicyclomine (BENTYL) 10 mg capsule three times a day. - axwnuy-nxqctxjx-ffzbtzh (CREON) 36,000-114,000- 180,000 unit delayed release capsule Take by mouth three times daily with meals. - hydrOXYchloroQUINE (PLAQUENIL) 200 mg tablet once daily. - cholecalciferol (VITAMIN D3) 400 unit tab once daily. - multivitamin tablet Take 1 tablet by mouth once daily. - acetaminophen (TYLENOL) 500 mg tablet Take by mouth every 8 hours as needed. - gabapentin (NEURONTIN) 300 mg capsule Take 400 mg by mouth three times daily. Problem List As Of Date 04/18/2024 Noted Resolved ABDOMINAL PAIN GENERALIZED [R10.84] 09/04/2007 IRRITABLE COLON [K58.9] 09/11/2008 RECURR DEPR PSYCHOS-MOD [F33.1] 09/15/2008 Unilateral primary osteoarthritis of first carp*08/08/2018 Undifferentiated connective tissue disease (HCC*07/03/2022 Systolic murmur [R01.1] 03/09/2020 Swelling of upper extremity [M79.89] 09/15/2019 Spinal stenosis [M48.00] 11/29/2016 Rotator cuff impingement syndrome [M75.40] 07/03/2022 Rotator cuff arthropathy of both shoulders [M12*07/05/2020 Primary osteoarthritis of both hips [M16.0] 02/07/2018 Presence of left artificial hip joint [Z96.642] 03/05/2019 Pes planus [M21.40] 03/29/2015 Pain in wrist [M25.539] 09/15/2019 Other specified abnormal immunological findings*07/03/2022 Trochanteric bursitis [M70.60] 11/29/2016 Balance problems [R26.89] 08/22/2017 Chronic cough [R05.3] 03/07/2018 Chronic lower back pain [M54.50, G89.29] 07/03/2022 Depression [F32.A] 12/28/2016 Dysuria [R30.0] 10/20/2020 Finding of above normal blood pressure [R03.0] 10/07/2018 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] 12/05/2019 Gluteal tendinitis [M76.00] 05/27/2019 H/O Spinal surgery [Z98.890] 01/02/2020 History of total knee replacement [Z96.659] 08/21/2018 Rotator cuff syndrome [M75.100] 02/17/2019 Inflammation of stomach and intestine [K52.9] 07/03/2022 Primary localized osteoarthrosis of ankle and f*07/03/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 Patient is having injections placed into bilateral feet under anesthesia. Procedure is scheduled for Sunday04-21-2024 at [facility] No refills needed. Mario Frye LPN April 16, 2024 1:53 PM Melissa Lopes MD 04/17/2024 4:12 PM Signed Subjective Abel Lyles is a 73 year old female. Patient presents today for preop clearance for upcoming foot procedure. She denies any previous difficulty with anesthesia. She denies any current cardiovascular, pulmonary, or neurological symptoms. Review of Systems Constitutional: Negative. HENT: Negative. Eyes: Negative. Respiratory: Negative. Cardiovascular: Negative. Gastrointestinal: Negative. Endocrine: Negative. Genitourinary: Negative. Musculoskeletal: Negative. Skin: Negative. Allergic/Immunologic: Negative. Neurological: Negative. Hematological: Negative. Psychiatric/Behavioral: Negative. PAST SURGICAL HISTORY Procedure Laterality Date ARTHRP KNE CONDYLEANDPLATU MEDIALANDLAT COMPARTMENTS Knee replacement, total, both knee's PAST SURGICAL HISTORY OF cholecystecomy PAST SURGICAL HISTORY OF stent in sphincter of ode PAST SURGICAL HISTORY OF tubal ligation PAST SURGICAL HISTORY OF right foot bunion surgery PAST MEDICAL HISTORY Diagnosis Date Hypothyroidism PMH - PAST MEDICAL HISTORY OF seasonal allergies PMH - PAST MEDICAL HISTORY OF tension headaches PMH - PAST MEDICAL HISTORY OF tension in shoulders PMH - PAST MEDICAL HISTORY OF pancreatitis PMH - PAST MEDICAL HISTORY OF ibs PMH - PAST MEDICAL HISTORY OF chronic epigastric pain PMH - PAST MEDICAL HISTORY OF reset broken nose PMH - PAST MEDICAL HISTORY OF arthritis PMH - PAST MEDICAL HISTORY OF depression FAMILY HISTORY Problem Relation Age of Onset Cancer Mother lung related to smoking None Father unknown GI Brother gallbladder removed GI Brother other brother on disability unknown why Cancer Brother Testicular Thyroid Maternal Grandmother Diabetes Maternal Uncle Diabetes Maternal Uncle Social History Tobacco Use Smoking status: Never Passive exposure: Never Smokeless tobacco: Never Vaping Use Vaping status: Never Used Substance Use Topics Alcohol use: Yes Comment: occassionally Drug use: Never ALLERGIES Allergen Reactions Soap Rash With Ann Marie and Tide specifically. Seasonal Allergies Unknown Coughing and congestion Grass Pollen Unknown House Dust Rash Tree, [place] Rash MEDICATIONS: omeprazole (PRILOSEC) 20 mg capsule Take 20 mg by mouth once daily. lamoTRIgine (LAMICTAL) 100 mg tablet Take 1 tablet by mouth once daily for 14 days, THEN 0.5 tablets once daily for 14 days. Discontinue after.. brexpiprazole (REXULTI) 1 mg tablet Take 1 tablet by mouth once daily. DULoxetine (CYMBALTA) 60 mg capsule Take 1 capsule by mouth once daily. busPIRone (BUSPAR) 7.5 mg tablet Take 1 tablet by mouth two times a day. meloxicam (MOBIC) 15 mg tablet Take 15 mg by mouth once daily. levothyroxine (SYNTHROID) 100 mcg tablet Take 1 tablet by mouth once daily. dicyclomine (BENTYL) 10 mg capsule three times a day. nghaxd-zeaujonv-bdjbwtm (CREON) 36,000-114,000- 180,000 unit delayed release capsule Take by mouth three times daily with meals. hydrOXYchloroQUINE (PLAQUENIL) 200 mg tablet once daily. cholecalciferol (VITAMIN D3) 400 unit tab once daily. multivitamin tablet Take 1 tablet by mouth once daily. acetaminophen (TYLENOL) 500 mg tablet Take by mouth every 8 hours as needed. gabapentin (NEURONTIN) 300 mg capsule Take 400 mg by mouth three times daily. clonazePAM (KLONOPIN) 0.5 mg tablet Take 1 tablet by mouth at bedtime as needed for anxiety (and sleep difficulties) for up to 30 days. Allergies, past surgical history, family history and past medical history were reviewed per this encounter. Medications were reviewed and verified. 03/25/2024 04/16/2024 INTAKE PAIN ASSESSMENT Are you having pain associated with your visit today? Yes, Provider notified Yes, Provider notified Pain Scales FACES Verbal (Numeric Rating or Visual Analog Scale) Pain Level 2 8 Pain Location Foot-Right Foot-Left Description Throbbing;Numbness Duration Amount of Time 24 Duration Units Hours Frequency Continuous If pain assessment is 0, no action needed. If pain assessment is positive, please see assessment and plain. Objective BP 136/82 (BP Site: Left Arm, BP Position: Sitting, BP Cuf (more content not included)... [facility] 04-03-2024 CNPN Telephone (PSYWST) -------- ABEL LYLES I ([id number]) 1950 F Date Time Provider Department 04/03/24 CATARINA FITCH PSYWST During your visit today, we recorded the following information about you: Fatuma Jewell LPN 04/03/2024 11:28 AM Signed Patient called with an update after change in medication at appointment. Patient reports, hasn't seen much of a difference, but I'm hanging in there. STEPHANIE Mcclain Nishi J, POWDER ROOM ATTENDANT.[facility] 04/03/2024 2:48 PM Signed Noted patient's response. It might take a little bit longer to see improvement in cognitive functioning. Please have her keep an eye on her depressive symptoms and reach out sooner as she taper off the Lamictal further. Fatuma Jewell LPN 04/07/2024 1:03 PM Signed Telephone call to patient, message left to see how she is feeling after medication changes. Fatuma Jewell LPN Allergies As of Date: 04/03/2024 Noted Allergy Reaction SOAP 05/15/2023 2 - Rash Comments: With Ann Marie and Tide specifically. SEASONAL ALLERGIES 05/15/2023 16 - Unknown Comments: Coughing and congestion GRASS POLLEN 07/18/2023 16 - Unknown HOUSE DUST 01/29/2024 2 - Rash TREE, OAK 01/29/2024 2 - Rash Date Reviewed: 03/25/2024 Reviewed by: Fatuma Jewell LPN - Fully Assessed Prescriptions as of 04/23/2024 - omeprazole (PRILOSEC) 20 mg capsule Take 20 mg by mouth once daily. - lamoTRIgine (LAMICTAL) 100 mg tablet Take 1 tablet by mouth once daily for 14 days, THEN 0.5 tablets once daily for 14 days. Discontinue after.. - brexpiprazole (REXULTI) 1 mg tablet Take 1 tablet by mouth once daily. - DULoxetine (CYMBALTA) 60 mg capsule Take 1 capsule by mouth once daily. - clonazePAM (KLONOPIN) 0.5 mg tablet Take 1 tablet by mouth at bedtime as needed for anxiety (and sleep difficulties) for up to 30 days. - busPIRone (BUSPAR) 7.5 mg tablet Take 1 tablet by mouth two times a day. - meloxicam (MOBIC) 15 mg tablet Take 15 mg by mouth once daily. - levothyroxine (SYNTHROID) 100 mcg tablet Take 1 tablet by mouth once daily. - dicyclomine (BENTYL) 10 mg capsule three times a day. - mcisqo-umjcatjm-yyrcscg (CREON) 36,000-114,000- 180,000 unit delayed release capsule Take by mouth three times daily with meals. - hydrOXYchloroQUINE (PLAQUENIL) 200 mg tablet once daily. - cholecalciferol (VITAMIN D3) 400 unit tab once daily. - multivitamin tablet Take 1 tablet by mouth once daily. - acetaminophen (TYLENOL) 500 mg tablet Take by mouth every 8 hours as needed. - gabapentin (NEURONTIN) 300 mg capsule Take 400 mg by mouth three times daily. Problem List As Of Date 04/03/2024 Noted Resolved ABDOMINAL PAIN GENERALIZED [R10.84] 09/04/2007 IRRITABLE COLON [K58.9] 09/11/2008 RECURR DEPR PSYCHOS-MOD [F33.1] 09/15/2008 Unilateral primary osteoarthritis of first carp*08/08/2018 Undifferentiated connective tissue disease (HCC*07/03/2022 Systolic murmur [R01.1] 03/09/2020 Swelling of upper extremity [M79.89] 09/15/2019 Spinal stenosis [M48.00] 11/29/2016 Rotator cuff impingement syndrome [M75.40] 07/03/2022 Rotator cuff arthropathy of both shoulders [M12*07/05/2020 Primary osteoarthritis of both hips [M16.0] 02/07/2018 Presence of left artificial hip joint [Z96.642] 03/05/2019 Pes planus [M21.40] 03/29/2015 Pain in wrist [M25.539] 09/15/2019 Other specified abnormal immunological findings*07/03/2022 Trochanteric bursitis [M70.60] 11/29/2016 Balance problems [R26.89] 08/22/2017 Chronic cough [R05.3] 03/07/2018 Chronic lower back pain [M54.50, G89.29] 07/03/2022 Depression [F32.A] 12/28/2016 Dysuria [R30.0] 10/20/2020 Finding of above normal blood pressure [R03.0] 10/07/2018 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] 12/05/2019 Gluteal tendinitis [M76.00] 05/27/2019 H/O Spinal surgery [Z98.890] 01/02/2020 History of total knee replacement [Z96.659] 08/21/2018 Rotator cuff syndrome [M75.100] 02/17/2019 Inflammation of stomach and intestine [K52.9] 07/03/2022 Primary localized osteoarthrosis of ankle and f*07/03/2022 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 [Z79.*07/03/2022 Osteoarthrosis [M19.90] 12/28/2016 Encounter Status:Closed by FATUMA JEWELL on 04/07/24 Normal [facility] NCS and/or EMG Patienton NCS and/or EMG Patient [facility] Pulmonary Services/Neurology [address] [place] [address] MR#: [id number] Acct: [id number] Name: ABEL LYLES Rep #: [id number] : 1950 73 From: Aida Mcclure MD Referring Dr: Melissa Lopes MD Status: REG CLI Location: PSN Date: 04/01/24 Sex: F C NCS and/or EMG Patient Report Ordering Doctor: Melissa Lopes DATE OF SERVICE: 04/01/24 Clinical Summary: 73 year old female patient with symptoms of numbness and discomfort/pain in both hands. Nerve Conduction Studies Summary: Nerve conductions were performed for the bilateral upper extremities. The median-D2 SNAP distal latency was prolonged bilaterally with reduced amplitudes. The ulnar-D5 SNAP distal latency was prolonged bilaterally. The median-APB CMAP distal latency was prolonged bilaterally. The right ulnar-ADM CMAP distal latency was mildly prolonged. There was a greater than 10% drop in amplitudes across the forearm for the right ulnar ADM/FDI CMAP's likely due to the presence of Lai-Mamie anastomosis. The absolute right ulnar motor conduction velocity at the elbow was reduced. Needle Examination Summary: Needle examination of select muscles of the bilateral upper extremities demonstrated a higher proportion of motor unit action potentials with reduced recruitment, increased amplitude, increased duration, and polyphasia in the left deltoid, left biceps, left triceps, left flexor carp radialis, and bilateral abductor pollicis brevis muscles. 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 Aida Mcclure MD; Dr. Melissa Lopes MD Date Dictated: 04/01/24 100 Date Transcribed: 04/01/241003 Tax Professional: Signed Uriah [facility] CNOVon 03-25-2024 CNOV Office Visit (PSWSTR ) -------- ABEL LYLES I ([id number]) 1950 F Date Time Provider Department 03/25/24 2:00 PM CATARINA FITCH PSWSTR During your visit today, we recorded the following information about you: Pulse Respiration Blood pressure Weight 64/minute 18/minute 156/76 100.9 kg Catarina Fitch, POWDER ROOM ATTENDANT.TWISTHAND 04/01/2024 2:51 AM Signed FOLLOW UP - PSYCHIATRIC PROGRESS NOTE PATIENT: Abel Lyles DATE: March 25, 2024 Visit Type:In person All information is from Patient report except when noted. This evaluation is NOT intended for forensic, disability or child custody purposes. CC: Presenting today for follow up regarding psychiatric medication management. HPI: Treatment Plan from Last Visit on 01/29/2024: TREATMENT PLAN: Patient called and verified the medications that she is currently taking. Has been taking Lamictal 200 mg, Cymbalta 60 mg, Rexulti 0.5 mg, and Buspar 7.5 mg. Patient has been asked to increase the Rexulti dose to 1 mg to see if that helps address the depressive symptoms better. Utilize Clonazepam 0.5 mg as needed to manage severe symptoms of anxiety that interfere with sleep. Patient rarely uses this medication. Continue individual psychotherapy with Dr. Becker. Today Abel shares that she is taking all her medications consistently. Taking clonazepam 0.5 mg about 2 times a week to address anxiety concerns that get in the way of her sleep. Takes Buspar morning and night. Abel shares that I am concerned about myself doing weird things. I have a lot of confusion about where things are and when I am doing something. When I am driving, sometimes, I will forget how to get there. I can't find the letters on the keyboard and it makes me really frustrated and anxious. Some days she over sleeps. I cancelled an appointment and slept around 18 hours. Shares that these cognitive concerns have been more insidious but more bothersome in the past month. Shares that she had a fall going down her basement. I didn't tell anyone. Hit the side of her face and had some jaw pain. Has noticed tremor in her hand and her chin. Was present and is more noticeable now. 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 I don't know if its my meds or not but I am not okay. Discussed the effects and side effects of all the psychiatric medications. Takes Gabapentin 400 mg three times daily through pain management. Has been on gabapentin for years. The stimulator has helped her back pain. Interval Progress: Worse PATIENT DATA: Generalized Anxiety Disorder Scale (WOLFGANG-7) 01/22/2024 01/29/2024 03/25/2024 WOLFGANG - 7 SCORES Score 7 9 20 (0-4) minimal anxiety, (5-9) mild anxiety, (10-14) moderate anxiety, (15-21) severe anxiety Patient Health Questionnaire (PHQ-9) 01/22/2024 01/29/2024 03/25/2024 PHQ-9 Score 10 10 20 (0-4) minimal depression, (5-9) mild depression, (10-14) moderate depression, (15-19) moderately severe depression, (20-27) severe depression PAST MEDICAL HISTORY Diagnosis Date Hypothyroidism PMH - PAST MEDICAL HISTORY OF seasonal allergies PMH - PAST MEDICAL HISTORY OF tension headaches PMH - PAST MEDICAL HISTORY OF tension in shoulders PMH - PAST MEDICAL HISTORY OF pancreatitis PMH - PAST MEDICAL HISTORY OF ibs PMH - PAST MEDICAL HISTORY OF chronic epigastric pain PMH - PAST MEDICAL HISTORY OF reset broken nose PMH - PAST MEDICAL HISTORY OF arthritis PMH - PAST MEDICAL HISTORY OF depression PAST SURGICAL HISTORY Procedure Laterality Date ARTHRP KNE CONDYLEANDPLATU MEDIALANDLAT COMPARTMENTS Knee replacement, total, both knee's PAST SURGICAL HISTORY OF cholecystecomy PAST SURGICAL HISTORY OF stent in sphincter of ode PAST SURGICAL HISTORY OF tubal ligation PAST SURGICAL HISTORY OF right foot bunion surgery ALLERGIES Allergen Reactions Soap Rash With Ann Marie and Tide specifically. Seasonal Allergies Unknown Coughing and congestion Grass Pollen Unknown House Dust Rash Tree, [place] Rash Current Outpatient Medications on File Prior to Visit Medication Sig brexpiprazole (REXULTI) 1 mg tablet Take 1 tablet by mouth once daily. clonazePAM (KLONOPIN) 0.5 mg tablet Take 1 tablet by mouth at bedtime as needed for anxiety (and sleep difficulties) for up to 30 days. DULoxetine (CYMBALTA) 60 mg capsule Take 1 capsule by mouth once daily. busPIRone (BUSPAR) 7.5 mg tablet Take 1 tablet by mouth two times a day. meloxicam (MOBIC) 15 mg tablet Take 15 mg by mouth once daily. lamoTRIgine (LAMICTAL) 200 mg tablet Take 1 tablet by mouth once daily. (Patient taking differently: Take 100 mg by mouth once daily.) CHOLESTYRAMINE, BULK, MISC Take by mouth. levothyroxine (SYNTHROID) 100 mcg tablet Take 1 tablet by mouth once daily. cholestyramine-sucrose (QUESTRAN) 4 gram powder dicyclomine (BENTYL) 10 mg ca (more content not included)... Normal [facility] 03-21-2024 [facility] Telephone (PSWSTR) -------- WANDAABEL Ilia ([id number]) 1950 F Date Time Provider Department 03/21/24 CATARINA FITCH [facility] During your visit today, we recorded the following information about you: Fatuma Jewell LPN 03/21/2024 10:07 AM Signed Patient is complaining of being confused, losing thing or forgetful. Wondering if the medication is causing this? Takes: Rexulti 1 mg tab daily, Buspar 7.5 mg BID, Klonopin 0.5 mg tab Q HS PRN. Patient's last appt was 01/29/24 and was to see you in 2 months or sooner if needed and nothing was scheduled. I'm going to schedule her for your first available. STEPHANIE Mcclain Krystle, RN 03/21/2024 10:17 AM Signed Patient calls back to report that Appointment on SundayMarch 25 at 2 pm will be fine. ARAMIS Felix Fonda, LPN 03/21/2024 10:26 AM Signed Patient appointment scheduled. STEPHANIE Mcclain Nishi J, LYNDSEY.TWISTHAND 03/21/2024 11:20 AM Signed Glad that patient has been scheduled for an appointment next week. Will review all the medications in detail at the appointment to discuss cognitive side effects. Allergies As of Date: 03/21/2024 Noted Allergy Reaction SOAP 05/15/2023 2 - Rash Comments: With Ann Marie and Tide specifically. SEASONAL ALLERGIES 05/15/2023 16 - Unknown Comments: Coughing and congestion GRASS POLLEN 07/18/2023 16 - Unknown HOUSE DUST 01/29/2024 2 - Rash TREE, OAK 01/29/2024 2 - Rash Date Reviewed: 02/28/2024 Reviewed by: Beatriz Wei RN - Fully Assessed Reason for Visit: Appointment [186] Prescriptions as of 03/21/2024 - brexpiprazole (REXULTI) 1 mg tablet Take 1 tablet by mouth once daily. - clonazePAM (KLONOPIN) 0.5 mg tablet Take 1 tablet by mouth at bedtime as needed for anxiety (and sleep difficulties) for up to 30 days. - DULoxetine (CYMBALTA) 60 mg capsule Take 1 capsule by mouth once daily. - busPIRone (BUSPAR) 7.5 mg tablet Take 1 tablet by mouth two times a day. - meloxicam (MOBIC) 15 mg tablet Take 15 mg by mouth once daily. - lamoTRIgine (LAMICTAL) 200 mg tablet Take 1 tablet by mouth once daily. - CHOLESTYRAMINE, BULK, MISC Take by mouth. - levothyroxine (SYNTHROID) 100 mcg tablet Take 1 tablet by mouth once daily. - cholestyramine-sucrose (QUESTRAN) 4 gram powder - dicyclomine (BENTYL) 10 mg capsule three times a day. - wezgcj-lokjeylk-vhraell (CREON) 36,000-114,000- 180,000 unit delayed release capsule Take by mouth three times daily with meals. - hydrOXYchloroQUINE (PLAQUENIL) 200 mg tablet once daily. - cholecalciferol (VITAMIN D3) 400 unit tab 1 tab(s) - Cyanocobalamin 250 mcg tab 1 tab(s) - multivitamin tablet Take 1 tablet by mouth once daily. - acetaminophen (TYLENOL) 500 mg tablet Take by mouth every 8 hours as needed. - gabapentin (NEURONTIN) 300 mg capsule Take 400 mg by mouth three times daily. Problem List As Of Date 03/21/2024 Noted Resolved ABDOMINAL PAIN GENERALIZED [R10.84] 09/04/2007 IRRITABLE COLON [K58.9] 09/11/2008 RECURR DEPR PSYCHOS-MOD [F33.1] 09/15/2008 Unilateral primary osteoarthritis of first carp*08/08/2018 Undifferentiated connective tissue disease (HCC*07/03/2022 Systolic murmur [R01.1] 03/09/2020 Swelling of upper extremity [M79.89] 09/15/2019 Spinal stenosis [M48.00] 11/29/2016 Rotator cuff impingement syndrome [M75.40] 07/03/2022 Rotator cuff arthropathy of both shoulders [M12*07/05/2020 Primary osteoarthritis of both hips [M16.0] 02/07/2018 Presence of left artificial hip joint [Z96.642] 03/05/2019 Pes planus [M21.40] 03/29/2015 Pain in wrist [M25.539] 09/15/2019 Other specified abnormal immunological findings*07/03/2022 Trochanteric bursitis [M70.60] 11/29/2016 Balance problems [R26.89] 08/22/2017 Chronic cough [R05.3] 03/07/2018 Chronic lower back pain [M54.50, G89.29] 07/03/2022 Depression [F32.A] 12/28/2016 Dysuria [R30.0] 10/20/2020 Finding of above normal blood pressure [R03.0] 10/07/2018 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] 12/05/2019 Gluteal tendinitis [M76.00] 05/27/2019 H/O Spinal surgery [Z98.890] 01/02/2020 History of total knee replacement [Z96.659] 08/21/2018 Rotator cuff syndrome [M75.100] 02/17/2019 Inflammation of stomach and intestine [K52.9] 07/03/2022 Primary localized osteoarthrosis of ankle and f*07/03/2022 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 It has not been cleared or approvedby the Food and Drug Administration. Result Comment: Conc entration Interpretation Follow-Up < 5 - 50 ug/g Normal None >50 -120 ug/g Borderline Re-evaluate in 4-6 weeks >120 ug/g Abnormal Repeat as clinically indicated Performed at: [address] [id number] [employer] M[employer]: Shiv Calvin PhD, Phone: [phone] Performed at: [address] [id number] [place] [employer]: Magdiel Lucas MD, Phone: [phone] Performed By: #### L 7000.0700, L7000.0300, M100.0605, L7000.0750 ####[facility] [id number] [place], [place], [id number] Fecal Fat, Qualitativeon FATS, NEUTRAL Normal Normal . [facility] Comment on above: Order Comment: Test( s) 161424-Omse, Neutral; 653786-Oaoe, Totalwas developed and its performance characteristicsdetermined by [facility]. It has not been cleared or approvedby the Food and Drug Administration. Result Comment: Norm al (<60 Droplets/HPF) Performed By: #### L 7000.0700, L7000.0300, M100.0605, L7000.0750 ####[facility] [id number] [place], [place], [id number] FATS, TOTAL Increased Normal . [facility] Comment on above: Order Comment: Test( s) 646895-Fwcg, Neutral; 065458-Tlqy, Totalwas developed and its performance characteristicsdetermined by [facility]. It has not been cleared or approvedby the Food and Drug Administration. Result Comment: Norm al (<100 Droplets/HPF) Performed By: #### L 7000.0700, L7000.0300, M100.0605, L7000.0750 ####[facility] [id number] [place], [place], [address] L7000.0750on 03-01-2024 P ELASTASE,FECA 347 Normal >200 [facility] Comment on above: Result Comment: Resu lt Units: ug Elast./g Severe Pancreatic Insufficiency: <100 Moderate Pancreatic Insufficiency: 100 - 200 Normal: >200 Performed at: [address] [id number] [place] [employer]: Magdiel Lucas MD, Phone: [phone] Performed By: #### L 7000.0700, L7000.0300, M100.0605, L7000.0750 ####[facility] [id number] [place], [place], [address] CNOVon 02-28-2024 CNOV Office Visit (PODIWS ) -------- ABEL LYLES I ([id number]) 1950 F Date Time Provider Department 02/28/24 8:00 AM DORYS JADE PODIWS During your visit today, we recorded the following information about you: Beatriz Wei, ARAMIS 02/28/2024 8:17 AM Signed Patient presents with: Left Foot - Established Patient, Follow Up, nail care Right Foot - Established Patient, Follow Up, nail care Patient presents for follow up nail care. MALISSA 11/27/23 Dorys Jade 02/28/2024 8:17 AM Signed Subjective: Patient presents to clinic c/o painful toenails. They state that the nails are especially painful with shoe gear and pressure. Patient states that nails b/l hallux are painful. No other pedal complaints at this time. Patient states no change in medications or medical history since last visit. Objective: Patient presents to clinic ambulating in [facility] Vasc: DP and PT pulses are palpable bilateral. CFT is less than 5 seconds bilateral. Skin temperature is warm to cool proximal to distal bilateral. There is no edema or varicosities noted. Neuro: Protective sensation is intact to the foot and toes when tested with the 5.07 SWM bilateral. The hallux is downgoing bilateral. Derm: Nails 1-5 b/l are painful, discolored-yellow, thick, crumbly, dystrophic and with subungal debris. Skin is of normal turgor, texture and hair growth is present bilateral. There are no hyperkeratosis, ulcerations, scars, verruca or other lesions noted. Ortho: Muscle strength is 5/5 for all pedal groups tested. Ankle joint DF is full with the knee extended with no pain or crepitus noted. 1st MPJ ROM is full bilateral. Assessment: (B35.1) Onychomycosis (primary encounter diagnosis) (M79.675) Pain in toe of left foot (M79.674) Pain in toe of right foot Plan: Patient was seen and evaluated. Nails 1-5 bilateral were debrided in length and thickness. Discussed removal of toenails as an option. Patient is interested in conservative care/debridement at this time. Patient is to RTC in 3-4 months. Dorys Jade DPM Allergies As of Date: 02/28/2024 Noted Allergy Reaction SOAP 05/15/2023 2 - Rash Comments: With Ann Marie and Tide specifically. SEASONAL ALLERGIES 05/15/2023 16 - Unknown Comments: Coughing and congestion GRASS POLLEN 07/18/2023 16 - Unknown HOUSE DUST 01/29/2024 2 - Rash TREE, OAK 01/29/2024 2 - Rash Date Reviewed: 02/28/2024 Reviewed by: Beatriz Wei, ARAMIS - Fully Assessed Reason for Visit: Established Patient [175] Follow Up [171] nail care [Other] Established Patient [175] Follow Up [171] nail care [Other] Primary Visit Diagnosis:Onychomycosis [B35.1] Other Visit Diagnoses:Pain in toe of left foot [M79.675] Pain in toe of right foot [M79.674] Prescriptions as of 02/28/2024 - brexpiprazole (REXULTI) 1 mg tablet Take 1 tablet by mouth once daily. - clonazePAM (KLONOPIN) 0.5 mg tablet Take 1 tablet by mouth at bedtime as needed for anxiety (and sleep difficulties) for up to 30 days. - DULoxetine (CYMBALTA) 60 mg capsule Take 1 capsule by mouth once daily. - busPIRone (BUSPAR) 7.5 mg tablet Take 1 tablet by mouth two times a day. - meloxicam (MOBIC) 15 mg tablet Take 15 mg by mouth once daily. - lamoTRIgine (LAMICTAL) 200 mg tablet Take 1 tablet by mouth once daily. - CHOLESTYRAMINE, BULK, MISC Take by mouth. - levothyroxine (SYNTHROID) 100 mcg tablet Take 1 tablet by mouth once daily. - cholestyramine-sucrose (QUESTRAN) 4 gram powder - dicyclomine (BENTYL) 10 mg capsule three times a day. - spsmbf-odmrlyck-bjjsfnw (CREON) 36,000-114,000- 180,000 unit delayed release capsule Take by mouth three times daily with meals. - hydrOXYchloroQUINE (PLAQUENIL) 200 mg tablet once daily. - cholecalciferol (VITAMIN D3) 400 unit tab 1 tab(s) - Cyanocobalamin 250 mcg tab 1 tab(s) - multivitamin tablet Take 1 tablet by mouth once daily. - acetaminophen (TYLENOL) 500 mg tablet Take by mouth every 8 hours as needed. - gabapentin (NEURONTIN) 300 mg capsule Take 400 mg by mouth three times daily. Problem List As Of Date 02/28/2024 Noted Resolved ABDOMINAL PAIN GENERALIZED [R10.84] 09/04/2007 IRRITABLE COLON [K58.9] 09/11/2008 RECURR DEPR PSYCHOS-MOD [F33.1] 09/15/2008 Unilateral primary osteoarthritis of first carp*08/08/2018 Undifferentiated connective tissue disease (HCC*07/03/2022 Systolic murmur [R01.1] 03/09/2020 Swelling of upper extremity [M79.89] 09/15/2019 Spinal stenosis [M48.00] 11/29/2016 Rotator cuff impingement syndrome [M75.40] 07/03/2022 Rotator cuff arthropathy of both shoulders [M12*07/05/2020 Primary osteoarthritis of both hips [M16.0] 02/07/2018 Presence of left artificial hip joint [Z96.642] 03/05/2019 Pes planus [M21.40] 03/29/2015 Pain in wrist [M25.539] 09/15/2019 Other specified abnormal immunological findings*07/03/2022 Trochanteric bursitis [M (more content not included)... Normal [facility] Stool Lactoferrin/WBCon - WBCST Normal Reference Ran ge = Negative Fecal WBC Lactoferrin Negative: No Fecal WBC Lactoferrin present Normal [facility] Comment on above: Performed By: #### L 7000.0700, L7000.0300, M100.0605, L7000.0750 ####[facility] [id number] [place], [address] [facility] 02-14-2024 [facility] Telephone (FAMPLA) -------- ABEL LYLES I ([id number]) 1950 F Date Time Provider Department 02/14/24 [facility] During your visit today, we recorded the following information about you: Lilliam Love LPN 02/14/2024 11:57 AM Signed Patient notified I faxed a clarified EMG order to [facility] today per her request. Patient stated she had not heard anything from them. I let patient know their scheduling department asked for clarification on her orders that I just faxed today. I asked patient to call [facility] scheduling to schedule EMG and if there is any issues to let our office know. Patient verbalized understanding, thanked me for the call and our call ended. Lilliam Love LPN February 14, 2024 11:57 AM Allergies As of Date: 02/14/2024 Noted Allergy Reaction SOAP 05/15/2023 2 - Rash Comments: With Ann Marie and Tide specifically. SEASONAL ALLERGIES 05/15/2023 16 - Unknown Comments: Coughing and congestion GRASS POLLEN 07/18/2023 16 - Unknown HOUSE DUST 01/29/2024 2 - Rash TREE, OAK 01/29/2024 2 - Rash Date Reviewed: 01/29/2024 Reviewed by: Terrie Romo MA - Fully Assessed Reason for Visit: Orders [681] Cmt: EMG Prescriptions as of 02/14/2024 - brexpiprazole (REXULTI) 1 mg tablet Take 1 tablet by mouth once daily. - clonazePAM (KLONOPIN) 0.5 mg tablet Take 1 tablet by mouth at bedtime as needed for anxiety (and sleep difficulties) for up to 30 days. - DULoxetine (CYMBALTA) 60 mg capsule Take 1 capsule by mouth once daily. - busPIRone (BUSPAR) 7.5 mg tablet Take 1 tablet by mouth two times a day. - meloxicam (MOBIC) 15 mg tablet Take 15 mg by mouth once daily. - lamoTRIgine (LAMICTAL) 200 mg tablet Take 1 tablet by mouth once daily. - CHOLESTYRAMINE, BULK, MISC Take by mouth. - levothyroxine (SYNTHROID) 100 mcg tablet Take 1 tablet by mouth once daily. - cholestyramine-sucrose (QUESTRAN) 4 gram powder - dicyclomine (BENTYL) 10 mg capsule three times a day. - fnqnqs-lzpahzwd-fsbrjvn (CREON) 36,000-114,000- 180,000 unit delayed release capsule Take by mouth three times daily with meals. - hydrOXYchloroQUINE (PLAQUENIL) 200 mg tablet once daily. - cholecalciferol (VITAMIN D3) 400 unit tab 1 tab(s) - Cyanocobalamin 250 mcg tab 1 tab(s) - multivitamin tablet Take 1 tablet by mouth once daily. - acetaminophen (TYLENOL) 500 mg tablet Take by mouth every 8 hours as needed. - gabapentin (NEURONTIN) 300 mg capsule Take 400 mg by mouth three times daily. Problem List As Of Date 02/14/2024 Noted Resolved ABDOMINAL PAIN GENERALIZED [R10.84] 09/04/2007 IRRITABLE COLON [K58.9] 09/11/2008 RECURR DEPR PSYCHOS-MOD [F33.1] 09/15/2008 Unilateral primary osteoarthritis of first carp*08/08/2018 Undifferentiated connective tissue disease (HCC*07/03/2022 Systolic murmur [R01.1] 03/09/2020 Swelling of upper extremity [M79.89] 09/15/2019 Spinal stenosis [M48.00] 11/29/2016 Rotator cuff impingement syndrome [M75.40] 07/03/2022 Rotator cuff arthropathy of both shoulders [M12*07/05/2020 Primary osteoarthritis of both hips [M16.0] 02/07/2018 Presence of left artificial hip joint [Z96.642] 03/05/2019 Pes planus [M21.40] 03/29/2015 Pain in wrist [M25.539] 09/15/2019 Other specified abnormal immunological findings*07/03/2022 Trochanteric bursitis [M70.60] 11/29/2016 Balance problems [R26.89] 08/22/2017 Chronic cough [R05.3] 03/07/2018 Chronic lower back pain [M54.50, G89.29] 07/03/2022 Depression [F32.A] 12/28/2016 Dysuria [R30.0] 10/20/2020 Finding of above normal blood pressure [R03.0] 10/07/2018 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] 12/05/2019 Gluteal tendinitis [M76.00] 05/27/2019 H/O Spinal surgery [Z98.890] 01/02/2020 History of total knee replacement [Z96.659] 08/21/2018 Rotator cuff syndrome [M75.100] 02/17/2019 Inflammation of stomach and intestine [K52.9] 07/03/2022 Primary localized osteoarthrosis of ankle and f*07/03/2022 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 Fax confirmation received. All documentation to be scanned into patient's chart. Lilliam Love LPN February 14, 2024 11:53 AM Allergies As of Date: 02/13/2024 Noted Allergy Reaction SOAP 05/15/2023 2 - Rash Comments: With Ann Marie and Tide specifically. SEASONAL ALLERGIES 05/15/2023 16 - Unknown Comments: Coughing and congestion GRASS POLLEN 07/18/2023 16 - Unknown HOUSE DUST 01/29/2024 2 - Rash TREE, OAK 01/29/2024 2 - Rash Date Reviewed: 01/29/2024 Reviewed by: Terrie Romo MA - Fully Assessed Reason for Visit: Orders [681] Cmt: EMG Clarification Prescriptions as of 02/14/2024 - brexpiprazole (REXULTI) 1 mg tablet Take 1 tablet by mouth once daily. - clonazePAM (KLONOPIN) 0.5 mg tablet Take 1 tablet by mouth at bedtime as needed for anxiety (and sleep difficulties) for up to 30 days. - DULoxetine (CYMBALTA) 60 mg capsule Take 1 capsule by mouth once daily. - busPIRone (BUSPAR) 7.5 mg tablet Take 1 tablet by mouth two times a day. - meloxicam (MOBIC) 15 mg tablet Take 15 mg by mouth once daily. - lamoTRIgine (LAMICTAL) 200 mg tablet Take 1 tablet by mouth once daily. - CHOLESTYRAMINE, BULK, MISC Take by mouth. - levothyroxine (SYNTHROID) 100 mcg tablet Take 1 tablet by mouth once daily. - cholestyramine-sucrose (QUESTRAN) 4 gram powder - dicyclomine (BENTYL) 10 mg capsule three times a day. - iigqfv-hoiqenld-bcpvxny (CREON) 36,000-114,000- 180,000 unit delayed release capsule Take by mouth three times daily with meals. - hydrOXYchloroQUINE (PLAQUENIL) 200 mg tablet once daily. - cholecalciferol (VITAMIN D3) 400 unit tab 1 tab(s) - Cyanocobalamin 250 mcg tab 1 tab(s) - multivitamin tablet Take 1 tablet by mouth once daily. - acetaminophen (TYLENOL) 500 mg tablet Take by mouth every 8 hours as needed. - gabapentin (NEURONTIN) 300 mg capsule Take 400 mg by mouth three times daily. Problem List As Of Date 02/13/2024 Noted Resolved ABDOMINAL PAIN GENERALIZED [R10.84] 09/04/2007 IRRITABLE COLON [K58.9] 09/11/2008 RECURR DEPR PSYCHOS-MOD [F33.1] 09/15/2008 Unilateral primary osteoarthritis of first carp*08/08/2018 Undifferentiated connective tissue disease (HCC*07/03/2022 Systolic murmur [R01.1] 03/09/2020 Swelling of upper extremity [M79.89] 09/15/2019 Spinal stenosis [M48.00] 11/29/2016 Rotator cuff impingement syndrome [M75.40] 07/03/2022 Rotator cuff arthropathy of both shoulders [M12*07/05/2020 Primary osteoarthritis of both hips [M16.0] 02/07/2018 Presence of left artificial hip joint [Z96.642] 03/05/2019 Pes planus [M21.40] 03/29/2015 Pain in wrist [M25.539] 09/15/2019 Other specified abnormal immunological findings*07/03/2022 Trochanteric bursitis [M70.60] 11/29/2016 Balance problems [R26.89] 08/22/2017 Chronic cough [R05.3] 03/07/2018 Chronic lower back pain [M54.50, G89.29] 07/03/2022 Depression [F32.A] 12/28/2016 Dysuria [R30.0] 10/20/2020 Finding of above normal blood pressure [R03.0] 10/07/2018 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] 12/05/2019 Gluteal tendinitis [M76.00] 05/27/2019 H/O Spinal surgery [Z98.890] 01/02/2020 History of total knee replacement [Z96.659] 08/21/2018 Rotator cuff syndrome [M75.100] 02/17/2019 Inflammation of stomach and intestine [K52.9] 07/03/2022 Primary localized osteoarthrosis of ankle and f*07/03/2022 senior living current use of therapeutic drug [Z79.*07/03/2022 Osteoarthrosis [M19.90] 12/28/2016 Encounter Status:Closed by LILLIAM LOVE on 02/14/24 [facility] Gastroenterology Visit Repor ton 02-08-2024 Gastroenterology Visit Report [facility] [address] [place] [address] OFFICE VISIT Date of Service: 02/08/24 MR#: [id number] Acct: [id number] Name: ABEL LYLES Rep #: [id number] : 1950 Provider: RICARDO Gaspar Age/Sex: 73/F Location: [facility] [place] Status: Signed Intake Vital Signs 11/28/21 10:34 01/08/24 11:43 Height 5 ft 2 in 5 ft 3 in Intake Visit Reasons: FOLLOW UP FROM PROCEDURE Chief Complaint: IBS Allergies No Known Allergies Allergy (Verified 01/08/24 11:42) Have you fallen in the past year?: No PFSH Medical History Wears hearing aid Post-menopausal History of steroid therapy Walker as ambulation aid Arthritis Anemia Back pain Difficulty swallowing Diarrhea Wears glasses Depression Anxiety Thyroid disease Unspecified diffuse connective tissue disease Easy bruising History of IBS Non-smoker Shortness of breath on exertion History of echocardiogram Cardiac murmur Hip pain, left Surgical History Hx of surgical procedure History of esophagogastroduodenosco py (EGD) Hx of colonoscopy Hx of thumb surgery History of carpal tunnel surgery of right wrist History of carpal tunnel surgery of left wrist History of cholecystectomy History of cataract extraction History of bunionectomy History of broken nose History of hip replacement History of laminectomy History of knee replacement Family History Mother Oat cell carcinoma of lung Social History household members: none number of children: 2 current occupational status: retired Smoking Status: Never smoker HPI HPI Chief Complaint: IBS Details: ABEL LYLES, is a 73 F who presents to the office today for f/u. PMH non-healing surgical wound; osteoarthritis; DJD; anxiety/depression. PSH cholecystectomy. *BGI established 2. with referral from PCP. Alternating constipation with abdominal pain and urgent diarrhea with urgency related incontinence with intermittent episodes of emesis. Stool consistency varies by day (coffee noted as loose stool trigger). Symptoms are interfering with daily life.??? Alternating constipation/diarrhea, biochemical workup and stool testing. Biochemical workup ESR, LDH, folate, TSH, Vit d1,25, T4, gastrin, GAME, DARIAN, ANCA, SURI comp, celiac, IBD profile without pertinent abnormality. CRP H6.50, Vit B12 H1307, T3 L2.1 ? Stool lactoferrin, calprotectin, EP, OP, giardia, C.difficile (formed) WNL.? Elastase L184, fecal fats increased. ? Start Creon Contact 3.17. to report that she is having frequent stools with smearing and mild incontinence; stools are not hard but of small amounts and frequent. Recommend Amitiza 8mcg QD. OV 6.8.23 she is no longer taking the amitiza. Creon use continues. She has not had any incontinence. However she continues to have constipation with frequent rectal pressure/need for BM. Loose stools have resolved. While taking amitiza she did note softer stools as opposed to harder stool. OV 9.15. she has been having loose stools with urgency incontinence and occasional emesis and lower abdominal discomfort occurring intermittently but with increased frequency without preceding factors; BM the others days vary between mush, hard stool and yellow/orange color. Continues with Creon; no longer taking amitiza. Start dicyclomine and cholestyramine ? GET 02.23.23 23.96 minutes (12-56) OV 3.7.24 Pt reports she has episodes of urgent loose stools that happen a few times a week. Sometimes coffee or salads trigger them. Bowels can also range from small balls to mushy. Continues to take cholestyramine and Creon. Only has abdominal discomfort when having urgency. OV 7.9.24 pt reports continued constipation, but is no longer having urgency with stools. Pt reports a bm every 3 days; denies blood in the stool. Pt reports difficulty swallowing dry foods such as bread and then will get hiccups. pt continues with cholestyramine, creon, and metamucil. OV 8.30.24 Patient continues to have difficulties with her bowels. She is now having constipation more often than diarrhea. She has been taking fiber, creon and cholestyramine. Notes that the cholestyramine has been making her have more bloating and gas. When she urinates she will have stool leakage which is bothersome to her. ROS Const Constitutional: Positive for weakness ENT ENT: Positive for difficulty swallo (more content not included)... Normal [facility] Deepti 01-30-2024 TANIA Telephone ([place]) -------- ABEL LYLES I ([id number]) 1950 F Date Time Provider Department 01/30/24 MELISSA LOPES During your visit today, we recorded the following information about you: Maral Cat MA 01/30/2024 2:51 PM Signed Items addressed in this encounter: Telephone Encounter Patient requested that neurology referral to be sent to Dr Melissa Abarca. I am unable to locate a neurologist with that name. I called pt and asked her is she could give us the office ph number for that DR. She stated that she will call back with that info Able to close encounter. Maral Cat MA January 30, 2024 2:47 PM 2:47 PM Mitzi Thomas LPN 01/31/2024 3:41 PM Signed I am sorry Maral. This was my fault. I inadvertently put the wrong doctor name. It was suppose to be Neurologist Dr Melissa King of [place]. I already took care of this and the referral was sent on 01/24/24. Thank you! Mitzi Thomas LPN January 31, 2024 3:41 PM Allergies As of Date: 01/30/2024 Noted Allergy Reaction SOAP 05/15/2023 2 - Rash Comments: With Ann Marie and Tide specifically. SEASONAL ALLERGIES 05/15/2023 16 - Unknown Comments: Coughing and congestion GRASS POLLEN 07/18/2023 16 - Unknown HOUSE DUST 01/29/2024 2 - Rash TREE, OAK 01/29/2024 2 - Rash Date Reviewed: 01/29/2024 Reviewed by: Terrie Romo MA - Fully Assessed Reason for Visit: Neurology Referral problem [Other] Prescriptions as of 01/31/2024 - clonazePAM (KLONOPIN) 0.5 mg tablet Take 1 tablet by mouth at bedtime as needed for anxiety (and sleep difficulties) for up to 30 days. - DULoxetine (CYMBALTA) 60 mg capsule Take 1 capsule by mouth once daily. - busPIRone (BUSPAR) 7.5 mg tablet Take 1 tablet by mouth two times a day. - REXULTI 0.5 mg tablet take 1 tablet once daily - meloxicam (MOBIC) 15 mg tablet Take 15 mg by mouth once daily. - lamoTRIgine (LAMICTAL) 200 mg tablet Take 1 tablet by mouth once daily. - CHOLESTYRAMINE, BULK, MISC Take by mouth. - levothyroxine (SYNTHROID) 100 mcg tablet Take 1 tablet by mouth once daily. - cholestyramine-sucrose (QUESTRAN) 4 gram powder - dicyclomine (BENTYL) 10 mg capsule three times a day. - rpacpd-fmsfnuwk-nphmsfm (CREON) 36,000-114,000- 180,000 unit delayed release capsule Take by mouth three times daily with meals. - hydrOXYchloroQUINE (PLAQUENIL) 200 mg tablet once daily. - cholecalciferol (VITAMIN D3) 400 unit tab 1 tab(s) - Cyanocobalamin 250 mcg tab 1 tab(s) - multivitamin tablet Take 1 tablet by mouth once daily. - acetaminophen (TYLENOL) 500 mg tablet Take by mouth every 8 hours as needed. - gabapentin (NEURONTIN) 300 mg capsule Take 400 mg by mouth three times daily. Problem List As Of Date 01/30/2024 Noted Resolved ABDOMINAL PAIN GENERALIZED [R10.84] 09/04/2007 IRRITABLE COLON [K58.9] 09/11/2008 RECURR DEPR PSYCHOS-MOD [F33.1] 09/15/2008 Unilateral primary osteoarthritis of first carp*08/08/2018 Undifferentiated connective tissue disease (HCC*07/03/2022 Systolic murmur [R01.1] 03/09/2020 Swelling of upper extremity [M79.89] 09/15/2019 Spinal stenosis [M48.00] 11/29/2016 Rotator cuff impingement syndrome [M75.40] 07/03/2022 Rotator cuff arthropathy of both shoulders [M12*07/05/2020 Primary osteoarthritis of both hips [M16.0] 02/07/2018 Presence of left artificial hip joint [Z96.642] 03/05/2019 Pes planus [M21.40] 03/29/2015 Pain in wrist [M25.539] 09/15/2019 Other specified abnormal immunological findings*07/03/2022 Trochanteric bursitis [M70.60] 11/29/2016 Balance problems [R26.89] 08/22/2017 Chronic cough [R05.3] 03/07/2018 Chronic lower back pain [M54.50, G89.29] 07/03/2022 Depression [F32.A] 12/28/2016 Dysuria [R30.0] 10/20/2020 Finding of above normal blood pressure [R03.0] 10/07/2018 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] 12/05/2019 Gluteal tendinitis [M76.00] 05/27/2019 H/O Spinal surgery [Z98.890] 01/02/2020 History of total knee replacement [Z96.659] 08/21/2018 Rotator cuff syndrome [M75.100] 02/17/2019 Inflammation of stomach and intestine [K52.9] 07/03/2022 Primary localized osteoarthrosis of ankle and f*07/03/2022 senior living current use of therapeutic drug [Z79.*07/03/2022 Osteoarthrosis [M19.90] 12/28/2016 Encounter Status:Closed by MARAL CAT on 01/30/24 [facility] CNOVraji 01-29-2024 CNOV Office Visit (PSWSTR ) -------- ABEL LYLES I ([id number]) 1950 F Date Time Provider Department 01/29/24 8:00 AM CATARINA FITCH PSWSTR During your visit today, we recorded the following information about you: Pulse Respiration Blood pressure Weight 56/minute 16/minute 142/70 98.9 kg Catarina Fitch, POWDER ROOM ATTENDANT.TWISTHAND 02/01/2024 10:24 AM Signed FOLLOW UP - PSYCHIATRIC PROGRESS NOTE PATIENT: Abel Lyles DATE: January 29, 2024 Visit Type:In person All information is from Patient report except when noted. This evaluation is NOT intended for forensic, disability or child custody purposes. CC: Presenting today for follow up regarding psychiatric medication management. HPI: Treatment Plan from Last Visit on 10/23/2023: Decrease Cymbalta to just 60 mg due to lack of efficacy in managing depression and contributing to dry mouth and constipation related side effect. Continue Rexulti, Remeron, Buspar, and Lamictal at the same dose. Continue weekly psychotherapy with her current provider. Today Abel shares that there are some new things with her physical health. Had to get an ankle brace but it has not been as helpful as anticipated. Was able to spend some time with her grandson Sheldon yesterday. Sheldon told her that his dad is getting all his teeth pulled out for a denture. Sheldon also told her that his dad and his step-mom are getting a divorce. She is unsure if this will mean that son will speak with her again as his was the one that was creating the distance and being very mean towards the patient. She does have an appointment with her psychologist after her visit with this provider. Discussed processing this with that provider. She shares that she has been noticing that she is arguing a lot with herself in her head. I talk myself into and out of a lot of things. She did not go to worship this past week. Told people that it was her Gut that was bothering her. She appears to struggle in having difficulty with doing things that she was able to in the past. Appears to have some increase in depressive symptoms. Medication reconciliation was completed in detail. Unsure if she is taking Lamictal 100 mg or 200 mg. It appears to be reported as 100 mg but patient is unsure. Patient shares that she will check her medication bottles at home this afternoon and call the provider. She shares that she takes Hydroxyzine 10 mg as needed to manage anxiety symptoms. Patient has not been taking Remeron and at first she was taking it only as needed but has not taken it in a while. Unable to recall when she stopped taking it. Discussed how stopping it could have contributed to worsening of depressive symptoms especially since we also lowered the Cymbalta due to the anti-cholinergic side effects. Patient has been consistent in taking Rexulti and denies any concerning side effects from that medication. Discussed the possibility of increasing this medication to address depressive symptoms if she is already taking 200 mg dose. Interval Progress: Slightly worse PATIENT DATA: Generalized Anxiety Disorder Scale (WOLFGANG-7) 10/17/2023 01/22/2024 01/29/2024 WOLFGANG - 7 SCORES Score 7 7 9 (0-4) minimal anxiety, (5-9) mild anxiety, (10-14) moderate anxiety, (15-21) severe anxiety Patient Health Questionnaire (PHQ-9) 10/17/2023 01/22/2024 01/29/2024 PHQ-9 Score 12 10 10 (0-4) minimal depression, (5-9) mild depression, (10-14) moderate depression, (15-19) moderately severe depression, (20-27) severe depression PAST MEDICAL HISTORY No date: Hypothyroidism No date: PMH - PAST MEDICAL HISTORY OF Comment: seasonal allergies No date: PMH - PAST MEDICAL HISTORY OF Comment: tension headaches No date: PMH - PAST MEDICAL HISTORY OF Comment: tension in shoulders No date: PMH - PAST MEDICAL HISTORY OF Comment: pancreatitis No date: PMH - PAST MEDICAL HISTORY OF Comment: ibs No date: PMH - PAST MEDICAL HISTORY OF Comment: chronic epigastric pain No date: PMH - PAST MEDICAL HISTORY OF Comment: reset broken nose No date: PMH - PAST MEDICAL HISTORY OF Comment: arthritis No date: PMH - PAST MEDICAL HISTORY OF Comment: depression PAST SURGICAL HISTORY No date: ARTHRP KNE CONDYLEANDPLATU MEDIALANDLAT COMPARTMENTS Comment: Knee replacement, total, both knee's No date: PAST SURGICAL HISTORY OF Comment: cholecystecomy No date: PAST SURGICAL HISTORY OF Comment: stent in sphincter of ode No date: PAST SURGICAL HISTORY OF Comment: tubal ligation No date: PAST SURGICAL HISTORY OF Comment: right foot bunion surgery ALLERGIES Allergen Reactions Soap Rash With Ann Marie and Tide specifically. Seasonal Allergies Unknown Coughing and congestion Grass Pollen Unknown House Dust Rash Tree, [place] Rash Current Outpatient Medications on File Prior to Visit Medication Sig mirtazapine (REMERON) 15 mg tablet (more content not included)... Normal [facility] 01-29-2024 CNPN Telephone (PSYCBE) -------- ABEL LYLES I ([id number]) 1950 F Date Time Provider Department 01/29/24 CATARINA FITCH During your visit today, we recorded the following information about you: Terrie Romo MA 01/29/2024 3:41 PM Signed Verified with patient that medication on med list is all the same. Buspar 7.5 mg BID Cymbalta 60 mg daily Lamictal 200 mg daily (Mirtazapine 15 mg at bedtime was d/c) If any med changes are made please send to [facility] per patient CORINNE Gusman Nishi J, APRN.[facility] 01/29/2024 4:36 PM Signed Noted that the patient is actually taking Lamictal 200 mg. Can you please verify with the patient if she is taking Rexulti 0.5 mg every day? Terrie Romo MA 01/31/2024 9:29 AM Signed Apologize I forgot to dictate that on list below but was verified that rexulti is 0.5 mg CORINNE Gusman Nishi J, APRN.[facility] 01/31/2024 2:46 PM Signed Please ask the patient to increase Rexulti dose to 1 mg. Schedule a follow up appointment in 2 months. I can send an updated prescription of Rexulti 1 mg for the patient. She can go ahead and increase the Rexulti dose now by taking two tablets of the 0.5 mg dose. Please confirm the pharmacy where the 1 mg prescription should be sent. Catarina Fitch APRN.[employer]IST[employer] 02/01/2024 10:34 AM Signed Called patient to provide this update. Had to leave a voicemail for the patient to contact provider about availability to discuss the increase in medication. Catarina Fitch APRN.CNP 02/04/2024 11:50 AM Signed Called again but had to leave a voicemail for the patient. Will try to contact the patient again to discuss increase in Rexulti. Catarina Fitch, LYNDSEY.TWISTHAND 02/04/2024 3:45 PM Signed Spoke with the patient. In agreement to increase Rexulti to 1 mg to address depressive symptoms. 30 day supply sent to [email or web address]. Will reach out with an update in 1 week. Then 90 day supply can be sent to the mail order pharmacy. Patient to call and schedule a follow up appointment in 2 months. Allergies As of Date: 01/29/2024 Noted Allergy Reaction SOAP 05/15/2023 2 - Rash Comments: With Ann Marie and Tide specifically. SEASONAL ALLERGIES 05/15/2023 16 - Unknown Comments: Coughing and congestion GRASS POLLEN 07/18/2023 16 - Unknown HOUSE DUST 01/29/2024 2 - Rash TREE, OAK 01/29/2024 2 - Rash Date Reviewed: 01/29/2024 Reviewed by: Terrie Romo MA - Fully Assessed Reason for Visit: Medication Update [8916] Order(s):brexpiprazole (REXULTI) 1 mg tabletTake 1 tablet by mouth once daily.Disp: 30 tabletRfl: 0 Prescriptions as of 02/04/2024 - brexpiprazole (REXULTI) 1 mg tablet Take 1 tablet by mouth once daily. - clonazePAM (KLONOPIN) 0.5 mg tablet Take 1 tablet by mouth at bedtime as needed for anxiety (and sleep difficulties) for up to 30 days. - DULoxetine (CYMBALTA) 60 mg capsule Take 1 capsule by mouth once daily. - busPIRone (BUSPAR) 7.5 mg tablet Take 1 tablet by mouth two times a day. - meloxicam (MOBIC) 15 mg tablet Take 15 mg by mouth once daily. - lamoTRIgine (LAMICTAL) 200 mg tablet Take 1 tablet by mouth once daily. - CHOLESTYRAMINE, BULK, MISC Take by mouth. - levothyroxine (SYNTHROID) 100 mcg tablet Take 1 tablet by mouth once daily. - cholestyramine-sucrose (QUESTRAN) 4 gram powder - dicyclomine (BENTYL) 10 mg capsule three times a day. - rxgamv-ueuvlyvr-uthakun (CREON) 36,000-114,000- 180,000 unit delayed release capsule Take by mouth three times daily with meals. - hydrOXYchloroQUINE (PLAQUENIL) 200 mg tablet once daily. - cholecalciferol (VITAMIN D3) 400 unit tab 1 tab(s) - Cyanocobalamin 250 mcg tab 1 tab(s) - multivitamin tablet Take 1 tablet by mouth once daily. - acetaminophen (TYLENOL) 500 mg tablet Take by mouth every 8 hours as needed. - gabapentin (NEURONTIN) 300 mg capsule Take 400 mg by mouth three times daily. 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] 09/15/2008 Unilateral primary osteoarthritis of first carp*08/08/2018 Undifferentiated connective tissue disease (HCC*07/03/2022 Systolic murmur [R01.1] 03/09/2020 Swelling of upper extremity [M79.89] 09/15/2019 Spinal stenosis [M48.00] 11/29/2016 Rotator cuff impingement syndrome [M75.40] 07/03/2022 Rotator cuff arthropathy of both shoulders [M12*07/05/2020 Primary osteoarthritis of both hips [M16.0] 02/07/2018 Presence of left artificial hip joint [Z96.642] 03/05/2019 Pes planus [M21.40] 03/29/2015 Pain in wrist [M25.539] 09/15/2019 Other specified abnormal immunological findings*07/03/2022 Trochanteric bursitis [M70.60] 11/29/2016 Balance problems [R26.89] 08/22/2017 Chronic cough [R05.3] 03/07/2018 Chronic lower back pain [M54.50, G89.29] 07/03/2022 Depressio (more content not included)... Normal [facility] Deepti 01-24-2024 TANIA Telephone ([facility]) -------- ABEL LYLES I ([id number]) 1950 F Date Time Provider Department 01/24/24 MELISSA LOPES During your visit today, we recorded the following information about you: Mitzi Thomas LPN 01/24/2024 12:42 PM Signed Abel Lyles called today. : 1950 Allergies: Soap, Seasonal Allergies, and Grass Pollen (home) [phone] (cell) Reason for call: Abel called asking for a referral to Neurology / Dr Melissa King [address] [place] [address], [address] [place] [address] fax#[phone]. They need the referral, demographics, office notes, and any imaging reports. Patient was seen in office for bilateral hand numbness and tingling on 01/16/24. Patient last appointment: 01/16/2024 The patients preferred pharmacy has been captured for this encounter? no STEPHANIE Turner Raymond Gregory, MD 01/24/2024 1:36 PM Signed Okay to enter consult. Patient should still get her EMG /nerve conduction study Mitzi Thomas LPN 01/24/2024 4:09 PM Signed Order entered. Please sign. I spoke with Abel and told her Dr Lopes still wants her to get the EMG test done. She agreed and wants to get it done at [facility]. I faxed the EMG order to [facility] fax#[phone]. Mitzi Thomas LPN January 24, 2024 4:08 PM Melissa Lopes MD 01/24/2024 4:40 PM Signed Thanks order is signed Mitzi Thomas LPN 01/25/2024 9:08 AM Signed Referral faxed to Neurology / Dr Melissa King [facility]#[phone] fax#[phone]. Note: I inadvertently wrote Dr Melissa Abarca on the order which is incorrect / in error. I did correct the order by crossing out Tevin and I wrote in [place]. The order that was faxed is correct. Mitzi Thomas LPN January 25, 2024 9:08 AM Mitzi Thomas LPN 01/31/2024 3:48 PM Signed Patient Abel called asking for the EMG order to be faxed to [facility]. I told her I already faxed it on 01/24/24 to fax#[phone] and I did receive a fax confirmation that it did go through. Abel said well they said they don't have it. I faxed the 01/16/24 EMG order again to [facility] fax#[phone]. Patient is aware. Mitzi Thomas LPN January 31, 2024 3:48 PM Mario Frye LPN 02/01/2024 9:57 AM Signed [facility] phoned office in regards to patients EMG order. They stated that order needs to state which extremity they are doing. They stated that it says R>L but they need in the comments or somewhere which extremity needs tested Mario Frye LPN February 01, 2024 9:57 AM Mario Frye LPN 02/01/2024 9:57 AM Signed Addended by: MARIO FRYE on: 02/01/2024 09:57 AM Modules accepted: Orders Melissa Lopes MD 02/03/2024 8:36 PM Signed Addended by: MELISSA LOPES on: 02/03/2024 08:36 PM Modules accepted: Orders Allergies As of Date: 01/24/2024 Noted Allergy Reaction SOAP 05/15/2023 2 - Rash Comments: With Ann Marie and Tide specifically. SEASONAL ALLERGIES 05/15/2023 16 - Unknown Comments: Coughing and congestion GRASS POLLEN 07/18/2023 16 - Unknown Date Reviewed: 01/16/2024 Reviewed by: Mario Frye LPN - Fully Assessed Reason for Visit: Referral Request [124] Primary Visit Diagnosis:Bilateral hand numbness [R20.0] Order(s):CONSULT TO NEUROLOGY [9019] Order #: [id number]: 1 FUTURE EMG(NEURO/NI) [20100909] Order #: [id number]: 1 FUTURE Prescriptions as of 02/03/2024 - clonazePAM (KLONOPIN) 0.5 mg tablet Take 1 tablet by mouth at bedtime as needed for anxiety (and sleep difficulties) for up to 30 days. - DULoxetine (CYMBALTA) 60 mg capsule Take 1 capsule by mouth once daily. - busPIRone (BUSPAR) 7.5 mg tablet Take 1 tablet by mouth two times a day. - REXULTI 0.5 mg tablet take 1 tablet once daily - meloxicam (MOBIC) 15 mg tablet Take 15 mg by mouth once daily. - lamoTRIgine (LAMICTAL) 200 mg tablet Take 1 tablet by mouth once daily. - CHOLESTYRAMINE, BULK, MISC Take by mouth. - levothyroxine (SYNTHROID) 100 mcg tablet Take 1 tablet by mouth once daily. - cholestyramine-sucrose (QUESTRAN) 4 gram powder - dicyclomine (BENTYL) 10 mg capsule three times a day. - zoewew-irmahyes-kxvrequ (CREON) 36,000-114,000- 180,000 unit delayed release capsule Take by mouth three times daily with meals. - hydrOXYchloroQUINE (PLAQUENIL) 200 mg tablet once daily. - cholecalciferol (VITAMIN D3) 400 unit tab 1 tab(s) - Cyanocobalamin 250 mcg tab 1 tab(s) - multivitamin tablet Take 1 tablet by mouth once daily. - acetaminophen (TYLENOL) 500 mg tablet Take by mouth every 8 hours as needed. - gabapentin (NEURONTIN) 300 mg capsule Take 400 mg by mouth three times daily. Problem List As Of Date 01/24/2024 Noted Resolved ABDOMINAL PAIN GENERALIZED [R10.84] 09/04/2007 IRRITABLE COLON [K58.9] 09/11/2008 RECURR D (more content not included)... [facility] Deepti 01-23-2024 TANIA Telephone ([facility]) -------- WANDA,ABEL I ([id number]) 1950 F Date Time Provider Department 01/23/24 ROMIEZIGGYRICKY SPARKSIlia GONZALEZ During your visit today, we recorded the following information about you: [place], Ophelia 01/23/2024 8:21 AM Signed ANNUAL MEDICARE WELLNESS VISIT OUTREACH Outreach attempt to contact patient and schedule Medicare wellness. Patient identified by name and date of : NO Outreach outcome: Unable to make contact: 1st attempt Left message ?This is Ophelia Szymanski calling from [facility]. Dr. Melissa Lopes MD noticed that you're due for your Medicare wellness visit. They asked me to call and assist you with scheduling an appointment with your primary care office. Can I set that up for you? Follow up needed:No If the patient asks what a Medicare Wellness visit is: The Medicare wellness visit isn't an exam. It is a great way to get up-to-date with your provider's care team. The purpose of the Annual Wellness Visit under Medicare is to paint a picture of your current state of health and to create a baseline for future care. Any additional test or labs that may be required as a result of the findings of your annual wellness visit would be billed separately by your doctor and would fall under a different benefit than your annual wellness visit. Medicare also covers a number of other preventative services at no cost such as preventative cancer screenings, bone density measurement, and flu shots. Your visit may include: A review of your medical and family history. A review of your current providers and prescriptions. Height, weight, blood pressure, and other routine measurements. Personalized health advice. A list of risk factors and treatment options for you. A screening schedule (like a checklist) for appropriate preventive services. Ophelia Szymanski January 23, 2024 8:21 AM Allergies As of Date: 01/23/2024 Noted Allergy Reaction SOAP 05/15/2023 2 - Rash Comments: With Ann Marie and Tide specifically. SEASONAL ALLERGIES 05/15/2023 16 - Unknown Comments: Coughing and congestion GRASS POLLEN 07/18/2023 16 - Unknown Date Reviewed: 01/16/2024 Reviewed by: Mario Frye LPN - Fully Assessed Reason for Visit: Appointment [186] Cmt: Missed patients call, called back left a message to try me again Prescriptions as of 01/23/2024 - REXULTI 0.5 mg tablet take 1 tablet once daily - DULoxetine (CYMBALTA) 60 mg capsule TAKE 1 CAPSULE ONCE DAILY - meloxicam (MOBIC) 15 mg tablet Take 15 mg by mouth once daily. - busPIRone (BUSPAR) 7.5 mg tablet Take 1 tablet by mouth two times a day. - lamoTRIgine (LAMICTAL) 200 mg tablet Take 1 tablet by mouth once daily. - mirtazapine (REMERON) 15 mg tablet Take 1 tablet by mouth daily at bedtime. - CHOLESTYRAMINE, BULK, MISC Take by mouth. - levothyroxine (SYNTHROID) 100 mcg tablet Take 1 tablet by mouth once daily. - cholestyramine-sucrose (QUESTRAN) 4 gram powder - dicyclomine (BENTYL) 10 mg capsule three times a day. - qtvsvh-ryvoztiu-duovwel (CREON) 36,000-114,000- 180,000 unit delayed release capsule Take by mouth three times daily with meals. - hydrOXYchloroQUINE (PLAQUENIL) 200 mg tablet once daily. - cholecalciferol (VITAMIN D3) 400 unit tab 1 tab(s) - Cyanocobalamin 250 mcg tab 1 tab(s) - multivitamin tablet Take 1 tablet by mouth once daily. - acetaminophen (TYLENOL) 500 mg tablet Take by mouth every 8 hours as needed. - gabapentin (NEURONTIN) 300 mg capsule Take 400 mg by mouth three times daily. 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] 09/15/2008 Unilateral primary osteoarthritis of first carp*08/08/2018 Undifferentiated connective tissue disease (HCC*07/03/2022 Systolic murmur [R01.1] 03/09/2020 Swelling of upper extremity [M79.89] 09/15/2019 Spinal stenosis [M48.00] 11/29/2016 Rotator cuff impingement syndrome [M75.40] 07/03/2022 Rotator cuff arthropathy of both shoulders [M12*07/05/2020 Primary osteoarthritis of both hips [M16.0] 02/07/2018 Presence of left artificial hip joint [Z96.642] 03/05/2019 Pes planus [M21.40] 03/29/2015 Pain in wrist [M25.539] 09/15/2019 Other specified abnormal immunological findings*07/03/2022 Trochanteric bursitis [M70.60] 11/29/2016 Balance problems [R26.89] 08/22/2017 Chronic cough [R05.3] 03/07/2018 Chronic lower back pain [M54.50, G89.29] 07/03/2022 Depression [F32.A] 12/28/2016 Dysuria [R30.0] 10/20/2020 Finding of above normal blood pressure [R03.0] 10/07/2018 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 [facility] CNPN Telephone ([facility]) -------- ABEL LYLES I ([id number]) 1950 F Date Time Provider Department 01/23/24 OPHELIA SZYMANSKI [facility] During your visit today, we recorded the following information about you: Ophelia Szymanski 01/23/2024 8:29 AM Signed ANNUAL MEDICARE WELLNESS VISIT OUTREACH Outreach attempt to contact patient and schedule Medicare wellness. Patient identified by name and date of : YES Outreach outcome: Made contact: Spoke to: Patient ?This is Ophelia Szymanski calling from [facility]. Dr. Melissa Lopes MD noticed that you're due for your Medicare wellness visit. They asked me to call and assist you with scheduling an appointment with your primary care office. Can I set that up for you? Follow up needed:No If the patient asks what a Medicare Wellness visit is: The Medicare wellness visit isn't an exam. It is a great way to get up-to-date with your provider's care team. The purpose of the Annual Wellness Visit under Medicare is to paint a picture of your current state of health and to create a baseline for future care. Any additional test or labs that may be required as a result of the findings of your annual wellness visit would be billed separately by your doctor and would fall under a different benefit than your annual wellness visit. Medicare also covers a number of other preventative services at no cost such as preventative cancer screenings, bone density measurement, and flu shots. Your visit may include: A review of your medical and family history. A review of your current providers and prescriptions. Height, weight, blood pressure, and other routine measurements. Personalized health advice. A list of risk factors and treatment options for you. A screening schedule (like a checklist) for appropriate preventive services. Ophelia Szymanski January 23, 2024 8:29 AM Allergies As of Date: 01/23/2024 Noted Allergy Reaction SOAP 05/15/2023 2 - Rash Comments: With Ann Marie and Tide specifically. SEASONAL ALLERGIES 05/15/2023 16 - Unknown Comments: Coughing and congestion GRASS POLLEN 07/18/2023 16 - Unknown Date Reviewed: 01/16/2024 Reviewed by: Mario Frye LPN - Fully Assessed Reason for Visit: Appointment [186] Cmt: Patient returned my call to schedule wellness, has a 6 mo f/u the week before but she did not remember getting that or writing it down, wanted that date for wellness Prescriptions as of 01/23/2024 - REXULTI 0.5 mg tablet take 1 tablet once daily - DULoxetine (CYMBALTA) 60 mg capsule TAKE 1 CAPSULE ONCE DAILY - meloxicam (MOBIC) 15 mg tablet Take 15 mg by mouth once daily. - busPIRone (BUSPAR) 7.5 mg tablet Take 1 tablet by mouth two times a day. - lamoTRIgine (LAMICTAL) 200 mg tablet Take 1 tablet by mouth once daily. - mirtazapine (REMERON) 15 mg tablet Take 1 tablet by mouth daily at bedtime. - CHOLESTYRAMINE, BULK, MISC Take by mouth. - levothyroxine (SYNTHROID) 100 mcg tablet Take 1 tablet by mouth once daily. - cholestyramine-sucrose (QUESTRAN) 4 gram powder - dicyclomine (BENTYL) 10 mg capsule three times a day. - zytcaa-rbvallzj-kryiaal (CREON) 36,000-114,000- 180,000 unit delayed release capsule Take by mouth three times daily with meals. - hydrOXYchloroQUINE (PLAQUENIL) 200 mg tablet once daily. - cholecalciferol (VITAMIN D3) 400 unit tab 1 tab(s) - Cyanocobalamin 250 mcg tab 1 tab(s) - multivitamin tablet Take 1 tablet by mouth once daily. - acetaminophen (TYLENOL) 500 mg tablet Take by mouth every 8 hours as needed. - gabapentin (NEURONTIN) 300 mg capsule Take 400 mg by mouth three times daily. 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] 09/15/2008 Unilateral primary osteoarthritis of first carp*08/08/2018 Undifferentiated connective tissue disease (HCC*07/03/2022 Systolic murmur [R01.1] 03/09/2020 Swelling of upper extremity [M79.89] 09/15/2019 Spinal stenosis [M48.00] 11/29/2016 Rotator cuff impingement syndrome [M75.40] 07/03/2022 Rotator cuff arthropathy of both shoulders [M12*07/05/2020 Primary osteoarthritis of both hips [M16.0] 02/07/2018 Presence of left artificial hip joint [Z96.642] 03/05/2019 Pes planus [M21.40] 03/29/2015 Pain in wrist [M25.539] 09/15/2019 Other specified abnormal immunological findings*07/03/2022 Trochanteric bursitis [M70.60] 11/29/2016 Balance problems [R26.89] 08/22/2017 Chronic cough [R05.3] 03/07/2018 Chronic lower back pain [M54.50, G89.29] 07/03/2022 Depression [F32.A] 12/28/2016 Dysuria [R30.0] 10/20/2020 Finding of above normal blood pressure [R03.0] 10/07/2018 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 [facility] Deepti 01-18-2024 CNPN Telephone ([facility]) -------- ABEL LYLES I ([id number]) 1950 F Date Time Provider Department 01/18/24 OPHELIA SZYMANSKI [facility] During your visit today, we recorded the following information about you: Ophelia Szymanski 01/18/2024 2:55 PM Signed ANNUAL MEDICARE WELLNESS VISIT OUTREACH Outreach attempt to contact patient and schedule Medicare wellness. Patient identified by name and date of : NO Outreach outcome: Unable to make contact: 1st attempt Left message ?This is Ophelia Szymanski calling from [facility]. Dr. Melissa Lopes MD noticed that you're due for your Medicare wellness visit. They asked me to call and assist you with scheduling an appointment with your primary care office. Can I set that up for you? Follow up needed:No If the patient asks what a Medicare Wellness visit is: The Medicare wellness visit isn't an exam. It is a great way to get up-to-date with your provider's care team. The purpose of the Annual Wellness Visit under Medicare is to paint a picture of your current state of health and to create a baseline for future care. Any additional test or labs that may be required as a result of the findings of your annual wellness visit would be billed separately by your doctor and would fall under a different benefit than your annual wellness visit. Medicare also covers a number of other preventative services at no cost such as preventative cancer screenings, bone density measurement, and flu shots. Your visit may include: A review of your medical and family history. A review of your current providers and prescriptions. Height, weight, blood pressure, and other routine measurements. Personalized health advice. A list of risk factors and treatment options for you. A screening schedule (like a checklist) for appropriate preventive services. Ophelia Szymanski Ophelia Stephon January 18, 2024 2:55 PM Allergies As of Date: 01/18/2024 Noted Allergy Reaction SOAP 05/15/2023 2 - Rash Comments: With Ann Marie and Tide specifically. SEASONAL ALLERGIES 05/15/2023 16 - Unknown Comments: Coughing and congestion GRASS POLLEN 07/18/2023 16 - Unknown Date Reviewed: 01/16/2024 Reviewed by: Mario Frye LPN - Fully Assessed Reason for Visit: Appointment [186] Cmt: Left message to schedule wellness for 2024 Prescriptions as of 01/18/2024 - DULoxetine (CYMBALTA) 60 mg capsule TAKE 1 CAPSULE ONCE DAILY - meloxicam (MOBIC) 15 mg tablet Take 15 mg by mouth once daily. - busPIRone (BUSPAR) 7.5 mg tablet Take 1 tablet by mouth two times a day. - lamoTRIgine (LAMICTAL) 200 mg tablet Take 1 tablet by mouth once daily. - mirtazapine (REMERON) 15 mg tablet Take 1 tablet by mouth daily at bedtime. - brexpiprazole (REXULTI) 0.5 mg tablet Take 1 tablet by mouth once daily. - CHOLESTYRAMINE, BULK, MISC Take by mouth. - levothyroxine (SYNTHROID) 100 mcg tablet Take 1 tablet by mouth once daily. - cholestyramine-sucrose (QUESTRAN) 4 gram powder - dicyclomine (BENTYL) 10 mg capsule three times a day. - nnjxsj-urpwxbgf-yzwqrtw (CREON) 36,000-114,000- 180,000 unit delayed release capsule Take by mouth three times daily with meals. - hydrOXYchloroQUINE (PLAQUENIL) 200 mg tablet once daily. - cholecalciferol (VITAMIN D3) 400 unit tab 1 tab(s) - Cyanocobalamin 250 mcg tab 1 tab(s) - multivitamin tablet Take 1 tablet by mouth once daily. - acetaminophen (TYLENOL) 500 mg tablet Take by mouth every 8 hours as needed. - gabapentin (NEURONTIN) 300 mg capsule Take 400 mg by mouth three times daily. 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] 09/15/2008 Unilateral primary osteoarthritis of first carp*08/08/2018 Undifferentiated connective tissue disease (HCC*07/03/2022 Systolic murmur [R01.1] 03/09/2020 Swelling of upper extremity [M79.89] 09/15/2019 Spinal stenosis [M48.00] 11/29/2016 Rotator cuff impingement syndrome [M75.40] 07/03/2022 Rotator cuff arthropathy of both shoulders [M12*07/05/2020 Primary osteoarthritis of both hips [M16.0] 02/07/2018 Presence of left artificial hip joint [Z96.642] 03/05/2019 Pes planus [M21.40] 03/29/2015 Pain in wrist [M25.539] 09/15/2019 Other specified abnormal immunological findings*07/03/2022 Trochanteric bursitis [M70.60] 11/29/2016 Balance problems [R26.89] 08/22/2017 Chronic cough [R05.3] 03/07/2018 Chronic lower back pain [M54.50, G89.29] 07/03/2022 Depression [F32.A] 12/28/2016 Dysuria [R30.0] 10/20/2020 Finding of above normal blood pressure [R03.0] 10/07/2018 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 Normal [facility] CNOVon 01-16-2024 CNOV Office Visit ([facility] ) -------- ABEL LYLES I ([id number]) 1950 F Date Time Provider Department 01/16/24 8:30 AM MELISSA LOPES During your visit today, we recorded the following information about you: Temperature Pulse Respiration Blood pressure 97.6 degrees 68/minute 18/minute 132/78 Weight Height 99.3 kg 1.6 m Mario Frye LPN 01/20/2024 7:41 PM Signed Patient is in office for 6 month exam. Patient has no current complaints or concerns. Mario Frye LPN January 16, 2024 8:21 AM Melissa Lopes MD 01/20/2024 7:41 PM Signed Subjective Abel Lyles is a 73 year old female.The patient presents today for follow-up for multiple medical problems. See list. Her chronic medical problems have been stable. Her blood pressure is under good control. She has complaint today of bilateral hand numbness and tingling. Review of Systems Constitutional: Negative. HENT: Negative. Eyes: Negative. Respiratory: Negative. Cardiovascular: Negative. Gastrointestinal: Negative. Endocrine: Negative. Genitourinary: Negative. Musculoskeletal: Negative. Skin: Negative. Allergic/Immunologic: Negative. Neurological: Negative. Hematological: Negative. Psychiatric/Behavioral: Negative. PAST SURGICAL HISTORY No date: ARTHRP KNE CONDYLEANDPLATU MEDIALANDLAT COMPARTMENTS Comment: Knee replacement, total, both knee's No date: PAST SURGICAL HISTORY OF Comment: cholecystecomy No date: PAST SURGICAL HISTORY OF Comment: stent in sphincter of ode No date: PAST SURGICAL HISTORY OF Comment: tubal ligation No date: PAST SURGICAL HISTORY OF Comment: right foot bunion surgery PAST MEDICAL HISTORY No date: Hypothyroidism No date: PMH - PAST MEDICAL HISTORY OF Comment: seasonal allergies No date: PMH - PAST MEDICAL HISTORY OF Comment: tension headaches No date: PMH - PAST MEDICAL HISTORY OF Comment: tension in shoulders No date: PMH - PAST MEDICAL HISTORY OF Comment: pancreatitis No date: PMH - PAST MEDICAL HISTORY OF Comment: ibs No date: PMH - PAST MEDICAL HISTORY OF Comment: chronic epigastric pain No date: PMH - PAST MEDICAL HISTORY OF Comment: reset broken nose No date: PMH - PAST MEDICAL HISTORY OF Comment: arthritis No date: PMH - PAST MEDICAL HISTORY OF Comment: depression FAMILY HISTORY Problem Relation Age of Onset Cancer Mother lung related to smoking None Father unknown GI Brother gallbladder removed GI Brother other brother on disability unknown why Cancer Brother Testicular Thyroid Maternal Grandmother Diabetes Maternal Uncle Diabetes Maternal Uncle Social History Tobacco Use Smoking status: Never Passive exposure: Never Smokeless tobacco: Never Vaping Use Vaping Use: Never used Substance Use Topics Alcohol use: Yes Comment: occassionally Drug use: Never ALLERGIES Allergen Reactions Soap Rash With Ann Marie and Tide specifically. Seasonal Allergies Unknown Coughing and congestion Grass Pollen Unknown MEDICATIONS: DULoxetine (CYMBALTA) 60 mg capsule TAKE 1 CAPSULE ONCE DAILY meloxicam (MOBIC) 15 mg tablet Take 15 mg by mouth once daily. busPIRone (BUSPAR) 7.5 mg tablet Take 1 tablet by mouth two times a day. lamoTRIgine (LAMICTAL) 200 mg tablet Take 1 tablet by mouth once daily. (Patient taking differently: Take 100 mg by mouth once daily.) mirtazapine (REMERON) 15 mg tablet Take 1 tablet by mouth daily at bedtime. brexpiprazole (REXULTI) 0.5 mg tablet Take 1 tablet by mouth once daily. CHOLESTYRAMINE, BULK, MISC Take by mouth. levothyroxine (SYNTHROID) 100 mcg tablet Take 1 tablet by mouth once daily. cholestyramine-sucrose (QUESTRAN) 4 gram powder dicyclomine (BENTYL) 10 mg capsule three times a day. usltef-xogqddzr-tlrvbbr (CREON) 36,000-114,000- 180,000 unit delayed release capsule Take by mouth three times daily with meals. hydrOXYchloroQUINE (PLAQUENIL) 200 mg tablet once daily. cholecalciferol (VITAMIN D3) 400 unit tab 1 tab(s) Cyanocobalamin 250 mcg tab 1 tab(s) multivitamin tablet Take 1 tablet by mouth once daily. acetaminophen (TYLENOL) 500 mg tablet Take by mouth every 8 hours as needed. gabapentin (NEURONTIN) 300 mg capsule Take 400 mg by mouth three times daily. Allergies, past surgical history, family history and past medical history were reviewed per this encounter. Medications were reviewed and verified. Objective BP 132/78 (BP Site: Left Arm, BP Position: Sitting, BP Cuff Size: Regular Adult) Pulse 68 Temp 36.4 ?C (97.6 ?F) (Temporal) Resp 18 Ht 160 cm (5' 3) Wt 99.3 kg (219 lb) SpO2 97% BMI 38.79 kg/m? Physical Exam Vitals reviewed. Constitutional: Appearance: Normal appearance. HENT: Head: Normocephalic and atraumatic. Nose: Nose normal. Eyes: Extraocular Movements: Extraocular movements intact. Pupils: Pupils are equal, round, and reactive to light (more content not included)... Normal [facility] THYROID STIMULATING HORMONEo n 01-16-2024 TSH Qn 4.468 m[IU]/L High [facility] Comment on above: 3rd generation ultra sensitive TSH. TSH Qnon 01-16-2024 Interpretation and review of laboratory results Abnormal [facility] TSH SerPl-aCncon 01-16-2024 TSH Qn 4.468 m[IU]/L High 0.358-3.[address] [facility] Comment on above: Order Comment: Speci men Type: BLOOD SPECIMEN Ordering Facility: [facility] Address: [address] [place] [address] Result Comment: 3rd generation ultra sensitive TSH. Performed By: #### 3 [id number] #### [facility] CLIA [id number] [address] [place] [address] [place] Colonoscopy Reporton 024 Colonoscopy Report [facility] Medical Records Department [address] [place] [id number] Colonoscopy Report MR#: [id number] Acct: [id number] Name: ABEL LYLES Rep #: [id number] : 1950 73 From: Vladimir Becerra DO PCP: Dr. Melissa Lopes MD Status:[facility] Patient Name: Abel Lyles Procedure Date: 01/08/2024 12:33 PM Date of : 1950 Age: 73 Procedure: Colonoscopy Indications: Clinically significant diarrhea of unexplained origin Providers: Vladimir Friend, DO Medicines: Monitored Anesthesia Care Patient Profile: This is a 73 year old female. Refer to note in patient chart for documentation of history and physical. Patient has symptoms of chronic abdominal cramping, chronic epigastric abdominal pain and chronic dysphagia. Last Colonoscopy: several years ago. Complications: No immediate complications. Procedure: Pre-Anesthesia Assessment: - Prior to the procedure, a History and Physical was performed, and patient medications and allergies were reviewed. The patient is competent. The risks and benefits of the procedure and the sedation options and risks were discussed with the patient. All questions were answered and informed consent was obtained. Patient identification and proposed procedure were verified by the physician in the pre-procedure area. Mental Status Examination: alert and oriented. Airway Examination: normal oropharyngeal airway and neck mobility. Respiratory Examination: clear to auscultation. CV Examination: normal. Prophylactic Antibiotics: The patient does not require prophylactic antibiotics. Prior Anticoagulants: The patient has taken no anticoagulant or antiplatelet agents. ASA Grade Assessment: II - A patient with mild systemic disease. After reviewing the risks and benefits, the patient was deemed in satisfactory condition to undergo the procedure. The anesthesia plan was to use monitored anesthesia care (MAC). Immediately prior to administration of medications, the patient was re-assessed for adequacy to receive sedatives. The heart rate, respiratory rate, oxygen saturations, blood pressure, adequacy of pulmonary ventilation, and response to care were monitored throughout the procedure. The physical status of the patient was re-assessed after the procedure. After I obtained informed consent, the scope was passed under direct vision. Throughout the procedure, the patient's blood pressure, pulse, and oxygen saturations were monitored continuously. The pediatric colonoscope was introduced through the anus and advanced to the cecum, identified by appendiceal orifice and ileocecal valve. The colonoscopy was performed without difficulty. The patient tolerated the procedure well. The quality of the bowel preparation was adequate. The ileocecal valve, appendiceal orifice, and rectum were photographed. Scope In: 12:34:30 PM Scope Withdrawal Time 0 hours 10 minutes 33 seconds Scope Out: 12:50:38 PM Total Procedure Duration Time 0 hours 16 minutes 8 seconds Findings: The perianal exam findings include poor rectal tone. Multiple small and large-mouthed diverticula were found in the recto-sigmoid colon and sigmoid colon. An area of mildly congested mucosa was found in the rectum, in the sigmoid colon, in the descending colon and in the transverse colon. Biopsies were taken with a cold forceps for histology. Verification of patient identification for the specimen was done. Estimated blood loss was minimal. A 5 mm polyp was found in the ascending colon. The polyp was sessile. The polyp was removed with a cold snare. Resection and retrieval were complete. Verification of patient identification for the specimen was done. Estimated blood loss was minimal. Impression: - Poor rectal tone found on perianal exam. - Diverticulosis in the recto-sigmoid colon and in the sigmoid colon. - Congested mucosa in the rectum, in the sigmoid colon, in the descending colon and in the transverse colon. Biopsied. - One 5 mm polyp in the ascending colon, removed with a cold snare. Resected and retrieved. Recommendation: - Repeat colonoscopy in 5 years for surveillance. - Continue present medications. Procedure Code(s): --- Professional --- 07193, Colonoscopy, flexible; with removal of tumor(s), polyp(s), or other lesion(s) by snare technique 71462, 59, Colonoscopy, flexible; with biopsy, single or multiple CPT copyright 2021 [employer]. All rights reserved. The codes documented in this report are preliminary and upon manager credit risk review may be revised to meet current compliance requirements. Vladimir Becerra DO 01/08/2024 1:06:01 PM This report has been signed electronically. Number of Addenda: 0 Note Initiated On: 01/08/2024 12:33 PM 01/08/24 1306 Date Jeriaa (more content not included)... Normal [facility] EGD Reporton 01-08-2024 EGD Report [facility] Medical Records Department [address] [place] [address] EGD Report MR#: [id number] Acct: [id number] Name: ABEL LYLES Rep #: [id number] : 1950 73 From: Vladimir Becerra DO PCP: Dr. Melissa Lopes MD Status:[facility] Patient Name: Abel Lyles Procedure Date: 01/08/2024 12:20 PM Date of : 1950 Age: 73 Procedure: Upper GI endoscopy Indications: Epigastric abdominal pain, Functional Dyspepsia Providers: Vladimir Becerra DO Medicines: Monitored Anesthesia Care Patient Profile: This is a 73 year old female. Refer to note in patient chart for documentation of history and physical. Patient has symptoms of chronic abdominal cramping, chronic epigastric abdominal pain and chronic dysphagia. Complications: No immediate complications. Procedure: Pre-Anesthesia Assessment: - Prior to the procedure, a History and Physical was performed, and patient medications and allergies were reviewed. The patient is competent. The risks and benefits of the procedure and the sedation options and risks were discussed with the patient. All questions were answered and informed consent was obtained. Patient identification and proposed procedure were verified by the physician in the pre-procedure area. Mental Status Examination: alert and oriented. Airway Examination: normal oropharyngeal airway and neck mobility. Respiratory Examination: clear to auscultation. CV Examination: normal. Prophylactic Antibiotics: The patient does not require prophylactic antibiotics. Prior Anticoagulants: The patient has taken no anticoagulant or antiplatelet agents. ASA Grade Assessment: II - A patient with mild systemic disease. After reviewing the risks and benefits, the patient was deemed in satisfactory condition to undergo the procedure. The anesthesia plan was to use monitored anesthesia care (MAC). Immediately prior to administration of medications, the patient was re-assessed for adequacy to receive sedatives. The heart rate, respiratory rate, oxygen saturations, blood pressure, adequacy of pulmonary ventilation, and response to care were monitored throughout the procedure. The physical status of the patient was re-assessed after the procedure. After obtaining informed consent, the endoscope was passed under direct vision. Throughout the procedure, the patient's blood pressure, pulse, and oxygen saturations were monitored continuously. The pediatric colonoscope was introduced through the mouth, and advanced to the second part of duodenum. The upper GI endoscopy was accomplished without difficulty. The patient tolerated the procedure well. Scope In: 12:29:52 PM Scope Out: 12:33:00 PM Total Procedure Duration Time 0 hours 3 minutes 8 seconds Findings: LA Grade B (one or more mucosal breaks greater than 5 mm, not extending between the tops of two mucosal folds) esophagitis with no bleeding was found 39 to 40 cm from the incisors. Biopsies were taken with a cold forceps for histology. Verification of patient identification for the specimen was done. Estimated blood loss was minimal. Diffuse moderately erythematous mucosa without bleeding was found in the gastric body, on the greater curvature of the stomach and in the gastric antrum. Biopsies were taken with a cold forceps for histology. Verification of patient identification for the specimen was done. Estimated blood loss was minimal. Biopsies were taken with a cold forceps for Helicobacter pylori testing. Verification of patient identification for the specimen was done. Estimated blood loss was minimal. Diffuse mildly erythematous mucosa without active bleeding and with no stigmata of bleeding was found in the duodenal bulb, in the first portion of the duodenum and in the second portion of the duodenum. Impression: - LA Grade B reflux esophagitis with no bleeding. Biopsied. - Erythematous mucosa in the gastric body, greater curvature and antrum. Biopsied. - Erythematous duodenopathy. Recommendation: - Discharge patient to home. - Resume previous diet. - Continue present medications. - Await pathology results. Procedure Code(s): --- Professional --- 70867, Esophagogastroduodenosco py, flexible, transoral; with biopsy, single or multiple CPT copyright 2021 [employer]. All rights reserved. The codes documented in this report are preliminary and upon manager credit risk review may be revised to meet current compliance requirements. Vladimir Becerra DO 01/08/2024 1:00:56 PM This report has been signed electronically. Number of Addenda: 0 Note Initiated On: 01/08/2024 12:20 PM 01/08/24 1301 Date Vladimir Alvarado Signature: Date (if indicated) CC: Dr. Young (more content not included)... Normal [facility] H Pylori (initial)on 024 H Pylori (initial) ---- Patient Age/Sex Location Account Attending Physician ABEL LYLES 73/F EN [id number] Vladimir Becerra DO Specimen: [id number] Received: 01/09/24 Status: MAMADOU Deras Num: [id number] Spec Type: IMMUNO Subm Dr: Vladimir Becerra DO PHYSICIAN INSTITUTION [place] [address] SPECIMEN INFORMATION: Tissue Source: A- Gastric antrum Clinical Info: Constipation, SIBO, irritable bowel syndrome Specimen Number: [id number] CPT code: 58655 METHODOLOGY: Deparaffinized sections of prefer/formalin-fixed tissue or PAP/DQ stained slides are incubated with monoclonal/polyclonal antibodies/oligonucleoti de probes. Localization is made via biotin free immunoperoxidase method. Appropriate controls are performed and reacted as expected. Results on target cell population are indicated in the following table: RESULTS: ANTIBODY / CLONE RESULT Block A H Pylori (polyclonal) negative These tests were developed and their performance characteristics determined by [facility]. They may not have been cleared or approved by the U.S. Food and Drug Administration. The FDA has determined that such clearance or approval is not necessary. The above immunohistochemical/dual KANDI markers are ordered and reviewed by the Pathologist. INTERPRETATION: A. Gastric antrum, biopsy: Negative for Helicobacter pylori organisms. SJ/mr 01/10/2024 Signed (signature on file) Dr. Mario Mitchell MD 01/10/24 1204 Normal [facility] Comment on above: Performed By: #### P H.PYLORI ####[facility] [address] [place], [place], [address] /POSTOP.[facility] 01-08-2024 /POSTOP.[facility] Medical Records Department [address] [place] [address] Anesthesia Postop Eval I 01/08/24 1300 MR#: [id number] Acct: [id number] Name: ABEL LYLES Rep #: [id number] : 1950 73 From: Emre Madera PCP: Dr. Melissa Lopes MD Status:REG SDC Y Race: C Location: [place] [address] Anesthesia: Postop Eval I Current Vital Signs Temperature: 98.2 F Pulse Rate: 58 Blood Pressure: 124/40 Respiratory Rate: 16 Pulse Ox: 97 Oxygen Delivery Method: Room Air Assessment Airway patent: Yes Spontaneous unlabored respirations: Yes Mental status: Asleep nausea: No Vomiting: No Anesthesia Complication: No Fluid Hydration Crystalloid volume administer (ml): 800 Total IV fluid infused: 800 Progress Note Anesthesia document: Postop Eval 1 completed: Yes 01/08/24 1300 Date Emre Madera Cosigner Signature: Date CC: Signed Normal [facility] MR/[id number] 01-08-2024 MR/POSTOPAN2 [facility] Medical Records Department [address] [place] [address] Anesthesia Postop Eval II 01/08/24 1315 MR#: [id number] Acct: [id number] Name: ABEL LYLES Rep #: [id number] : 1950 73 From: Dave Bishop MD PCP: Dr. Melissa Lopes MD Status:REG SDC Y Race: C Location: [place] [address] Anesthesia Postop Eval I Sum Postop Eval Completion status Anesthesia document: Postop Eval 1 completed: Yes Anesthesia Postop Eval I Summary Anesthesia Postop Eval I Summary: Anesthesia Postop Eval I: Assessment Summary Airway patent Yes 01/08/24 13:00 [email or web address] Spontaneous unlabored Yes 01/08/24 13:00 [email or web address] respirations Mental status Asleep 01/08/24 13:00 [email or web address] nausea No 01/08/24 13:00 [email or web address] Vomiting No 01/08/24 13:00 [email or web address] Anesthesia Postop Eval I: Fluid Summary Crystalloid volume administer 800 01/08/24 13:00 [email or web address] (ml) Colloids volume administered ( ml) Blood Product volume administered (ml) Total IV fluid infused 800 01/08/24 13:00 [email or web address] Anesthesia Postop Eval I: Summary Notes Anesthesia Complication No 01/08/24 13:00 [email or web address] Anesthesia Complication Comment: Post-operative progress note Anesthesia: Postop Eval II Evaluation Mental status: Awake and Calm Pain Level: 0 nausea: No Vomiting: No Complications Anesthesia Complication: No 01/08/24 1316 Date Dave Bishop MD Cosigner Signature: Date CC: Signed Normal [facility] Special Stain Group Ion 12-11 Special Stain Group I ------ Patient Age/Sex Location Account Attending Physician ABEL LYLES 73/F EN [id number] Vladimir Becerra DO Specimen: [id number] Received: 01/08/24 Status: MAMADOU Deras Num: [id number] Spec Type: EGD BIOPSY Jose J Dr: Vladimir Friend, DO HEADER OPERATION: Colonoscopy with polypectomy and biopsy, EGD PRE-OP DIAGNOSIS: Constipation, SIBO, irritable bowel syndrome TISSUE SUBMITTED: A- Gastric antrum, B- Distal esophagus, C- Ascending colon polyp cold snare, D- Random colon biopsy MICROSCOPIC DIAGNOSIS A. Gastric antrum, biopsy: Mild gastritis. See microscopic description and comment. B. Distal esophagus, biopsy: Fragments of gastroesophageal mucosa with moderate chronic inflammation. Intestinal metaplasia (goblet cell metaplasia) not identified. See comment. C. Ascending colon polyp, cold snare and polypectomy: Tubular adenoma. Fragments of fecal material. D. Colon, random biopsy: Fragments of colonic mucosa, no pathologic diagnosis. SJ/mr 01/10/2024 COMMENT A. The results of immunohistochemistry for Helicobacter pylori will be reported separately ([id number]). B. Alcian blue/PAS stain with matched control is used in the evaluation of the specimen. MICROSCOPIC DESCRIPTION Slides are reviewed. A. The specimen shows fragments of gastric mucosa with chronic inflammatory cell infiltrates in the lamina propria consisting of lymphocytes and plasma cells, consistent with mild chronic gastritis. GROSS DESCRIPTION A. Received in fixative is one container labeled with the patient's name and designated Gastric antrum. The specimen consists of two irregular fragments of light bowman soft tissue that in aggregate measure 0.5 x 0.3 x 0.1 cm. The specimen is totally submitted in one cassette. B. Received in fixative is one container labeled with the patient's name and designated Distal esophagus. The specimen consists of multiple irregular fragments of light bowman soft Patient Age/Sex Location Account Attending Physician ABEL LYLES 73/F EN [id number] Vladimir Becerra DO tissue that in aggregate measure 0.7 x 0.2 x 0.1 cm. The specimen is totally submitted in one cassette. C. Received in fixative is one container labeled with the patient's name and designated Ascending colon polyp. The specimen consists of multiple irregular fragments of light bowman soft tissue that in aggregate measure 0.3 x 0.2 x 0.1 cm. The specimen is totally submitted in one cassette. D. Received in fixative is one container labeled with the patient's name and designated Random colon biopsy. The specimen consists of multiple irregular fragments of light bowman soft tissue that in aggregate measure 1.0 x 0.5 x 0.1 cm. The specimen is totally submitted in one cassette. RENEE/ 01/09/2024 TC:1 [facility]:[id number] Patient Age/Sex Location Account Attending Physician ABEL LYLES 73/F EN [id number] Vladimir Becerra, DO Signed (signature on file) Dr. Mario Mitchell MD 01/10/24 1136 Normal [facility] Comment on above: Performed By: #### L 100.0100, L500.2500 #### [facility] [address] [place], [address] PT D/C Summary (1)on 024 PT D/C Summary (1) [facility] [address] [place] [address] / REHABILITATION SERVICES DISCHARGE SUMMARY MR#: [id number] Acct: [id number] Name: ABEL LYLES Rep #: [id number] : 1950 73 From: Feliciano Taylor PT, Cert. T, [facility] Referring : OUT OF TOWN DOCTOR Status: REG R CR Insurance: [facility] S[employer]Y [employer]URANCE Discharge Summary D/C summary: It has been my pleasure to treat ABEL LYLES referred by TAYE PAEZ, with the diagnosis of GAIT INSTABILITY ,ACQUIRED PES PLANUS for a total of 30 visit(s). Discharge Date: 12/21/23 Please see the following information for a summary of their discharge status. 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 MECHANICS) pes planus with mod calcaneal valgus NEURO: denies paresthesia/tingling PALAPTION: unremarkable SLS: 5 SEC GAIT: ambulates w reciprocal pattern MMT: ankle stabilizers 4/5 ,except G-S 4-/5 ,quads/hams 4/5 ,( peak force) hip flexion right 42.1 ,left 36.9 ,right hip abd 19.3,left 29.4 STAIRS: one step at time AROM: ankle dorsiflexion 5 degrees ,inversion 35 degrees ,eversion 10 degrees ,plantar flexion 65 degrees Goals Goal 1:: Patient to be I with HEP with strengthening and balance Goal Progress: Goal Met Goal 2:: Patient to improve peak force hip flexion/abduction by 10 # force to improve gait.(New goal) Goal Progress: Goal Met Goal 3:: Patient to improve CATSIB by 5-10 points to improve balance.( new goal) Goal Progress: Goal Met Goal 4:: Patient to improve functional gait assessment score by 5 points to improve safety and balance. Goal Progress: Goal Met Goal 5:: Patient to improve LFES score by 5 points to improve QOL and balance. ( new goal) Goal Progress: Goal Met Plan Plan: D/C D/C Information Discharge Comments: HEP AND GYM d/c sentence: If there are questions or concerns regarding this patient's physical therapy, please feel free to call me at [phone]. Thank you for the referral of this patient. Sincerely, Feliciano Taylor, PT, Cert MDT, OCS Balance/Gait/Functional tests Balance/Special Test Scores Functional Gait Assessment Score: 20 % Disability: 33.3400 CATSIB Score (Max score 120 seconds): 90 Lower Extremity Functional Score: 51 Improvement % Improvement: 70 12/21/23 0800 CC: Dr. Melissa Lopes MD; TAYE PAEZ KATIE Signed Normal [facility] Gastroenterology Visit Repor ton 12-18-2023 Gastroenterology Visit Report [facility] [address] [place] [address] OFFICE VISIT Date of Service: 12/18/23 MR#: [id number] Acct: [id number] Name: ABEL LYLES Rep #: [id number] : 1950 Provider: Vladimir Becerra DO Age/Sex: 73/F Location: [facility] Status: Signed Intake Vital Signs 11/28/21 10:34 Height 5 ft 2 in Intake Visit Reasons: medication refills Allergies No Known Allergies Allergy (Verified 05/02/22 17:12) Medications ???Medication ???Instructions ???Recorded ???Confirmed ???Type duloxetine 60 mg capsule,delayed 120 mg PO QHS 07/29/18 12/18/23 History release hydroxychloroquine 200 mg tablet 200 mg PO QHS arthritis 07/29/18 12/18/23 History (Plaquenil) levothyroxine 100 mcg tablet 100 mcg PO DAILY 07/29/18 12/18/23 History (Synthroid) mirtazapine 15 mg PO/SL QHS 07/12/21 12/18/23 History buspirone 7.5 mg tablet 7.5 mg PO BID 11/28/21 12/18/23 History gabapentin 100 mg capsule 400 mg PO TID 11/28/21 12/18/23 History lamotrigine 100 mg tablet 100 mg PO DAILY 11/28/21 12/18/23 History [id number] See Rx Instructions PO .COMPLEX 08/27/23 12/18/23 Rx 36,000-114,000-180,000 unit #320 caps capsule,delay rel (Creon) dicyclomine 10 mg capsule 10 mg PO TID #90 caps 11/30/23 12/18/23 Rx cholestyramine (with sugar) 4 gram 4 g PO BID 12/18/23 History oral powder meloxicam 15 mg tablet 15 mg PO DAILY 12/18/23 12/18/23 History sodium sul 1.479 gram-potas ch 12 tab PO PER PKG DIR #24 tabs 12/18/23 12/18/23 Rx 0.188 gram-magnes sul 0.225 gram tablet (Sutab) Have you fallen in the past year?: No PFSH Medical History (Updated 08/16/23 @ 16:[address] Gilbert Friend, DO) Nausea and vomiting Diarrhea Wears glasses Depression Anxiety History of steroid therapy Thyroid disease Walker as ambulation aid Ambulates with cane Unspecified diffuse connective tissue disease Rheumatoid arthritis Anemia Easy bruising History of IBS Non-smoker Shortness of breath on exertion History of echocardiogram Cardiac murmur Hip pain, left Surgical History History of cholecystectomy History of cataract extraction History of bunionectomy History of broken nose History of hip replacement History of laminectomy History of knee replacement Family History Mother Oat cell carcinoma of lung Social History household members: none number of children: 2 current occupational status: retired Smoking Status: Never smoker HPI HPI Details: ABEL LYLES, is a 73 F who presents to the office today for follow up. PMH non-healing surgical wound; osteoarthritis; DJD; anxiety/depression. PSH cholecystectomy. *BGI established 2.. with referral from PCP. Alternating constipation with abdominal pain and urgent diarrhea with urgency related incontinence with intermittent episodes of emesis. Stool consistency varies by day (coffee noted as loose stool trigger). Symptoms are interfering with daily life.??? Alternating constipation/diarrhea, biochemical workup and stool testing. Biochemical workup ESR, LDH, folate, TSH, Vit d1,25, T4, gastrin, GAME, DARIAN, ANCA, SURI comp, celiac, IBD profile without pertinent abnormality. CRP H6.50, Vit B12 H1307, T3 L2.1 ? Stool lactoferrin, calprotectin, EP, OP, giardia, C.difficile (formed) WNL.? Elastase L184, fecal fats increased. ? Start Creon Contact 08.25.22 to report that she is having frequent stools with smearing and mild incontinence; stools are not hard but of small amounts and frequent. Recommend Amitiza 8mcg QD. OV 6.8. she is no longer taking the amitiza. Creon use continues. She has not had any incontinence. However she continues to have constipation with frequent rectal pressure/need for BM. Loose stools have resolved. While taking amitiza she did note softer stools as opposed to harder stool. OV 9 she has been having loose stools with urgency incontinence and occasional emesis and lower abdominal discomfort occurring intermittently but with increased frequency without preceding factors; BM the others days vary between mush, hard stool and yellow/orange color. Continues with Creon; no longer taking amitiza. Start dicyclomine and cholestyramine ? GET 02.23.23 23.96 minutes (12-56) OV 3.7.24 Pt reports she has episodes of urgent loose stools that happen a few times a week. Sometimes coffee or salads trigger them. Bowels can also range from small ball (more content not included)... Normal [facility] Basophil percentageOrdered B y: Dr. Carrillo on 10-09-2022 Chloride [Moles/Vol] 110 mmol/L 98-107 [facility] Glucose [Mass/Vol] 90 mg/dL 74-106 [facility] Potassium [Moles/Vol] 4.2 mmol/L 3.5-5.1 [facility] Sodium [Moles/Vol] 140 mmol/L 136-145 [facility] WBC (Bld) [#/Vol] 9.2 10*3/uL 4.4-11.0 [facility] Blood erythrocytes count (nu mber/volume)Ordered By: Dr. Carrillo on 10-09-2022 RBC (Bld) [#/Vol] 4.84 10*6/uL 4.2-5.4 [facility] Blood hemoglobin measurement (mass/volume)Ordered By: Dr. Carrillo on 10-09-2022 Hemoglobin (Bld) [Mass/Vol] 13.3 g/dL 12.0-15.0 [facility] Blood platelet mean volumeOr dered By: Dr. Carrillo on 10-09-2022 Platelet mean volume (Bld) [Entitic vol] 10.0 fL 6.2-12.0 [facility] Determination of erythrocyte mean corpuscular volume (MCV)Ordered By: Dr. Carrillo on 10-09-2022 MCV (RBC) [Entitic vol] 89.7 fL 81-99 [facility] Hematocrit Auto (Bld) [Volum e fraction]Ordered By: Dr. Carrillo on 10-09-2022 Hematocrit (Bld) [Volume fraction] 43.4 % 37-47 [facility] - Chemistry and C hemistry - challengeOrdered By: Dr. Carrillo on 10-09-2022 CO2 [Moles/Vol] 28.0 mmol/L 21.0-32.0 [facility] Urea nitrogen/Creatinine [Mass ratio] 16.0 mg/mg 10-20 [facility] - Hematology and Cell countsOrdered By: Dr. Carrillo on 10-09-2022 Erythrocyte distribution width (RBC) [Entitic vol] 49.0 fL 35.1-43.9 [facility] Erythrocyte distribution width (RBC) [Ratio] 14.9 % 11.6-14.6 [facility] MCH (RBC) [Entitic mass] 27.5 pg 27.0-32.0 [facility] MCHC Auto (RBC) [Mass/Vol]Or dered By: Dr. Carrillo on 10-09-2022 MCHC (RBC) [Mass/Vol] 30.6 g/dL 32-36 [facility] No Panel InformationOrdered By: Dr. Carrillo on 10-09-2022 Estimated GFR (MDRD) Amer 76 mL/min >60 [facility] Comment on above: GFR Calc Estimated GFR (MDRD) Non-Af Amer 62 mL/min >60 [facility] Comment on above: Non- GFR Calc Platelets bldOrdered By: Dr. Carrillo on 10-09-2022 Platelets (Bld) [#/Vol] 331 10*3/uL 150-450 [facility] Serum or plasma calcium luciana urement (mass/volume)Ordered By: Dr. Carrillo on 10-09-2022 Calcium [Mass/Vol] 9.2 mg/dL 8.5-10.1 [facility] Serum or plasma creatinine m easurement (mass/volume)Ordered By: Dr. Carrillo on 10-09-2022 Creatinine [Mass/Vol] 0.94 mg/dL 0.55-1.02 [facility] Comment on above: The validity of the calculated GFR & GFRAA in patients over 70 years has not been determined. Clinical correlation is essential. Serum or plasma urea nitroge n measurement (mass/volume)Ordered By: Dr. Carrillo on 10-09-2022 Urea nitrogen [Mass/Vol] 15 mg/dL 7-18 [facility] Thin prep Papanicolaou smear with manual screeningOrdered By: Dr. Carrillo on 10-09-2022 Thin prep Papanicolaou smear with manual screening 2 5-15 [facility] No Panel InformationOrdered By: Vladimir Becerra on 08-04-2022 Giardia Antigen (NOAH) [facility] Ova and parasitesOrdered By: Vladimir Becerra on 08-04-2022 Ova and parasites identified LM Nom (Unsp spec) [facility] Albumin Elph [Mass/Vol]Order ed By: Vladimir Becerra on 07-28-2022 Albumin [Mass/Vol] 3.0 g/dL 2.9-4.4 [facility] Atypical perinuclear antineu trophil cytoplasmic antibodies measurementOrdered By: Vladimir Becerra on 07-28-2022 Neutrophil cytoplasmic Ab.perinuclear.atypical IF (S) [Titer] <1:20 titer Neg:<1:20 [facility] Comment on above: The atypical pANCA p attern has been observed in asignificant percentage of patients with ulcerative colitis,primary sclerosing cholangitis and autoimmune hepatitis. Basophil percentageOrdered B y: Vladimir Becerra on 07-28-2022 Basophil percentage < 0.2 AI 0.0-0.9 [facility] LDH [Catalytic activity/Vol] 221 U/L 84-246 [facility] Erythrocyte sedimentation ra teOrdered By: Vladimir Becerra on 07-28-2022 ESR (Bld) [Velocity] 24 mm/h 0-30 [facility] Interpretation of serum or p lasma protein pattern by immunofixation (narrative resultOrdered By: Vladimir Becerra on 07-28-2022 Protein Fractions Immunofixation Syd [Interp] See comment [facility] Comment on above: NOT OBSERVED Laboratory - Chemistry and C hemistry - challengeOrdered By: Vladimir Becerra on 07-28-2022 Cobalamin (Vitamin B12) [Mass/Vol] 1307 pg/mL 211-911 [facility] Free T4 [Mass/Vol] 1.00 ng/dL 0.76-1.46 [facility] No Panel InformationOrdered By: Vladimir Becerra on 07-28-2022 Stool Calprotectin <16 ug/g 0-120 [facility] Comment on above: Concentration Interp retation Follow-Up<16 - 50 ug/g Normal None>50 -120 ug/g Borderline Re-evaluate in 4-6 weeks >120 ug/g Abnormal Repeat as clinically indicatedPerformed at: [facility] [id number] Director: Shiv Calvin PhD, Phone: [phone] at: [employer] [id number] Director: Magdiel Lucas MD, Phone: [phone] Stool Neutral Fats Increased . [facility] Comment on above: Normal (<60 Droplets /HPF) Stool Pancreatic Elastase 184 >200 [facility] Comment on above: Result Units: ug Sophie st./g Severe Pancreatic Insufficiency: <100 Moderate Pancreatic Insufficiency: 100 - 200 Normal: >200Performed at: [facility] [id number] Director: Magdiel Lucas MD, Phone: [phone] Addendum Document Comment . [facility] Comment on above: Protein electrophore sis scan will follow via computer,mail, or analytics senior manager delivery. Centromere B Antibody <0.2 AI 0.0-0.9 [facility] Endomysial IgA Antibody Negative Negative [facility] Free Triiodothyronine (T3) pg/dL 2.1 pg/mL 2.18-3.98 [facility] Immunoglobulin E 21 IU/mL 6-495 [facility] Comment on above: Performed at: [employer] ([facility]) [address] [id number] Director: Shiv Calvin PhD, Phone: [phone] at: [address] [id number] Director: Magdiel Lucas MD, Phone: [phone] Miscellaneous Test See comment [facility] Comment on above: TEST RESULT LIMITSIB D Expanded PanelgASCA 8 units 0-50 Negative <45 Equivocal 45 - 50 Positive >50ACCA 46 units 0-90 Negative <80 Equivocal 80 - 90 Positive >90ALCA 2 units 0-60 Negative <55 Equivocal 55 - 60 Positive >60AMCA 9 units 0-100 Negative < 90 Equivocal 90 - 100 Positive >100 This test was developed and its performance characteristics determined by [facility]. It has not been cleared or approved by the Food and Drug Administration. The FDA has determined that such clearance or approval is not necessary.Atypical pANCA Negative NegativeCommentsPattern is not suggestive of Inflammatory Bowel Disease. ____ TESTING PERFORMED AT [facility]. ORIGINAL REPORT ON FILE IN LAB CONTAINS ADDITIONAL TEST SITE INFORMATION. HEAD WAITRESS Antibody <0.2 AI 0.0-0.9 [facility] Thyroid Stimulating Hormone (TSH) 1.34 uIU/mL 0.358-3.74 [facility] Qualitative fecal fat or lip idsOrdered By: Vladimir Becerra on 07-28-2022 Fat Ql (Stl) Increased . [facility] Comment on above: Normal (<100 Droplet s/HPF) Serum DNA double strand anti body assay (units/volume)Ordered By: Vladimir Becerra on 07-28-2022 DNA double strand Ab Qn (S) 1 [IU]/mL 0-9 [facility] Comment on above: Negative <5 Equivoca l 5 - 9 Positive >9 Serum Belkis-1 antibody assay (u nits/volume)Ordered By: Vladimir Becerra on 07-28-2022 Belkis-1 extractable nuclear Ab Qn (S) <0.2 AI 0.0-0.9 [facility] Serum Scl-70 extractable nuc lear antibody assay (units/volume)Ordered By: Vladimir Becerra on 07-28-2022 SCL-70 extractable nuclear Ab Qn (S) <0.2 AI 0.0-0.9 [facility] Serum Rodríguez extractable nucl ear antibody detectionOrdered By: Vladimir Becerra on 07-28-2022 Rodríguez extractable nuclear Ab Ql (S) <0.2 AI 0.0-0.9 [facility] Serum [id number] measu rement by electrophoresisOrdered By: Vladimir Becerra on 07-28-2022 Alpha 1 globulin Elph [Mass/Vol] 0.3 g/dL 0.0-0.4 [facility] Alpha 1 globulin Elph [Mass/Vol] 0.8 g/dL 0.4-1.0 [facility] Serum classic neutrophil cyt oplasmic antibody assay (units/volume)Ordered By: Vladimir Becerra on 07-28-2022 Neutrophil cytoplasmic Ab.classic Qn (S) <1:20 titer Neg:<1:20 [facility] Serum globulin measurement ( mass/volume)Ordered By: Vladimir Becerra on 07-28-2022 Globulin (S) [Mass/Vol] 3.0 g/dL 2.2-3.9 [facility] Serum or plasma C reactive p rotein measurement (mass/volume)Ordered By: Vladimir Becerra on 07-28-2022 CRP [Mass/Vol] 6.50 mg/L 0.0-3.0 [facility] Comment on above: C-Reactive Protein ( CRP) provides useful information for thediagnosis, therapy and monitoring of inflammatory processesand associated diseases. For the evaluation of Relative Riskfor Cardiovascular Disease, a High Sensitivity CRP (HSCRP)should be ordered. Serum or plasma IgA measurem ent (mass/volume)Ordered By: Vladimir Becerra on 07-28-2022 IgA [Mass/Vol] 150 mg/dL 64-422 [facility] Serum or plasma IgG measurem ent (mass/volume)Ordered By: Vladimirandrew Becerra on 07-28-2022 IgG [Mass/Vol] 716 mg/dL [phone] [facility] Serum or plasma IgM measurem ent (mass/volume)Ordered By: Vladimir Becerra on 07-28-2022 IgM [Mass/Vol] 37 mg/dL 26-217 [facility] Serum or plasma beta globuli n measurement by electrophoresis (mass/volume)Ordered By: Vladimir Becerra on 07-28-2022 Beta globulin Elph [Mass/Vol] 1.1 g/dL 0.7-1.3 [facility] Serum or plasma calcitriol m easurement (mass/volume)Ordered By: Vladimir Becerra on 07-28-2022 1,25-dihydroxyvitamin D3 [Mass/Vol] 47.1 pg/mL 24.8-81.5 [facility] Comment on above: Performed at: [address] [id number] Director: Shiv Calvin PhD, Phone: [phone] at: - [facility] [id number] Director: Magdiel Lucas MD, Phone: [phone] Serum or plasma folate measu rement (mass/volume)Ordered By: Vladimir Becerra on 07-28-2022 Folate [Mass/Vol] 41.10 ng/mL 3.1-55.4 [facility] Serum or plasma gamma globul in measurement by electrophoresis (mass/volume)Ordered By: Vladimir Becerra on 07-28-2022 Gamma globulin Elph [Mass/Vol] 0.8 g/dL 0.4-1.8 [facility] Serum or plasma gastrin luciana urement (mass/volume)Ordered By: Vladimir Becerra on 07-28-2022 Gastrin [Mass/Vol] 52 pg/mL 0-115 [facility] Comment on above: Siemens Immulite 200 0 Immunochemiluminometric assay (ICMA)Values obtained with different assay methods or kits cannotbe used interchangeably. Results cannot be interpreted asabsolute evidence of the presence or absence of malignantdisease. Serum or plasma immunoelectr ophoresis interpretation (nominal result)Ordered By: Vladimir Becerra on 07-28-2022 Interpretation IEP [Interp] Comment . [facility] Comment on above: No monoclonality det ected. Serum perinuclear neutrophil cytoplasmic antibody titer by immunofluorescenceOrdered By: Vladimir Becerra on 07-28-2022 Neutrophil cytoplasmic Ab.perinuclear IF (S) [Titer] <1:20 titer Neg:<1:20 [facility] Comment on above: The presence of posi tive fluorescence exhibiting P-ANCA orC-ANCA patterns alone is not specific for the diagnosis ofWegener's Granulomatosis (WG) or microscopic polyangiitis.Decisions about treatment should not be based solely onANCA IFA results. The International ANCA Group Consensusrecommends follow up testing of positive sera with both CA-3 and MPO-ANCA enzyme immunoassays. As many as 5% serumsamples are positive only by EIA. Ref. AM J Clin Acdnmi6002;111:507-513. Serum tissue transglutaminas e IgA antibody assay (units/volume)Ordered By: Vladimir Becerra on 07-28-2022 tTG IgA Qn (S) <2 U/mL 0-3 [facility] Comment on above: Negative 0 - 3 Weak Positive 4 - 10 Positive >10 Tissue Transglutaminase (tTG) has been identified as the endomysial antigen. Studies have demonstr- ated that endomysial IgA antibodies have over 99% specificity for gluten sensitive enteropathy. Thin prep Papanicolaou smear with manual screeningOrdered By: Vladimir Becerra on 07-28-2022 Thin prep Papanicolaou smear with manual screening 1.1 0.7-1.7 [facility] Total protein bloodOrdered B y: Vladimir Becerra on 07-28-2022 Protein [Mass/Vol] 6.0 g/dL 6.0-8.5 [facility] HEATHER SCREENINGon 07-26-2022 [facility] Urine creatinine measurement (mass/volume)Ordered By: Dr. Tapia on 05-09-2022 Creatinine (U) [Mass/Vol] 297.00 mg/dL NO RANGE EST. [facility] Urine protein measurement (m ass/volume)Ordered By: Dr. Tapia on 05-09-2022 Protein (U) [Mass/Vol] 44.8 mg/dL 0.0-11.8 [facility] Urine protein/creatinine mas s ratioOrdered By: Dr. Tapia on 05-09-2022 Protein/Creatinine (U) [Mass ratio] 151 mg/g CRE 0-200 [facility] TSHon 10-19-2021 TSH 2.165 UIU/ML Normal 0.358-3.[address] [facility] Comment on above: Result Comment: 3rd generation ultra sensitive TSH Performed By: #### L [id number] #### [facility] [place] [address] Clinical Summary: Adanshari castellon 09-29-2021 74 OP Visit Invalid Interpretation Code [facility] Work Phone: Motor/Sensory Neuropathy Hood el w/ Reflexon 12-27-2020 Asialo-GM1 Abs IgG/IgM See Note Normal 0-[address] [facility] Comment on above: Order Comment: Radha gonzalez transthyretin amyloidosis seq. Result Comment: The Asialo-GM1 Antibodies, IgG/IgM component of this test is unavailable due to a nationwide water gas operator reagent issue. The result of this individual component alone has minimal clinical significance but can support an overall clinical diagnosis in conjunction with other clinical parameters and/or other motor neuropathy markers. A credit will be issued for this test component. Performed By: #### M SNP #### [facility] [address] [place], [place] [address] GD1a Abs IgG/IgM 6 IV Normal 0-50 [facility] Comment on above: Order Comment: Radha gonzalez transthyretin amyloidosis seq. Performed By: #### M SNP #### [facility] [address] [place], [place] [address] GD1b Abs IgG/IgM 7 IV Normal 0-50 [facility] Comment on above: Order Comment: Radha gonzalez transthyretin amyloidosis seq. Performed By: #### M SNP #### [facility] [address] [place], [place] [address] GM1 Abs IgG/IgM 6 IV Normal 0-50 [facility] Comment on above: Order Comment: Radha gonzalez transthyretin amyloidosis seq. Performed By: #### M SNP #### [facility] [address] [place], [place] [address] GQ1b Abs IgG/IgM 6 IV Normal 0-50 [facility] Comment on above: Order Comment: Radha gonzalez transthyretin amyloidosis seq. Result Comment: INTE RPRETIVE INFORMATION: Ganglioside (Asialo-GM1, GM1, GM2, GD1a, GD1b, and GQ1b) Antibodies, IgG/IgM 29 IV or less: Negative 30-50 IV: Equivocal 51-100 IV: Positive 101 IV or greater: Strong Positive Ganglioside antibodes are associated with diverse peripheral neuropathies. Elevated antibody levels to ganglioside-monosialic acid (GM1), and the neutral glycolipid, asialo GM1 are associated with motor or sensorimotor neuropathies, particularly multifocal motor neuropathy. Anti-GM1 may occur as IgM (polyclonal or monoclonal) or IgG antibodies. These antibodies may also be found in patients with diverse connective tissue diseases as well as normal individuals. GD1a antibodies are associated with different variants of Guillain-Delaware syndrome (GBS) particularly acute motor axonal neuropathy while GD1b antibodies are predominantly found in sensory ataxic neuropathy syndrome. Anti-GQ1b antibodies are seen in more than 80 percent of patients with Collins-Ruggiero syndrome and may be elevated in GBS patients with ophthalmoplegia. The role of isolated anti-GM2 antibodies is unknown. These tests by themselves are not diagnostic and should be used in conjunction with other clinical parameters to confirm disease. This test was developed and its performance characteristics determined by [facility]. It has not been cleared or approved by the [place] Food and Drug Administration. This test was performed in a CLIA certified laboratory and is intended for clinical purposes. Performed By: [facility] [address] [place] [address] Play Leader: Bettye Mendoza MD Performed By: #### M SNP #### [facility] [address] [place], [place] [address] MAG Ab, IgM Shante 0 TU Normal 0-999 [facility] Comment on above: Order Comment: Radha gonzalez transthyretin amyloidosis seq. Result Comment: INTE RPRETIVE INFORMATION: MAG Antibody, IgM SHANTE An elevated IgM antibody concentration greater than 999 TU against myelin-associated glycoprotein (MAG) suggests active demyelination in peripheral neuropathy. A normal concentration (less than 999 TU) generally rules out an anti-MAG antibody-associated peripheral neuropathy. TU=Titer Units This test was developed and its performance characteristics determined by [facility]. It has not been cleared or approved by the [place] Food and Drug Administration. This test was performed in a CLIA certified laboratory and is intended for clinical purposes. Performed By: #### M SNP #### [facility] [address] [place], [place] [address] Purkinje Cell/Neuronal Nuclear IgG Scrn Not detected Normal None Detected [facility] Comment on above: Order Comment: Radha gonzalez transthyretin amyloidosis seq. Result Comment: PRITI-1, PRITI-2, PCCA-1 or PCCA-Tr(DNER) antibodies not detected. No further testing will be performed. INTERPRETIVE INFORMATION: Purkinje Cell/Neuronal Nuclear IgG Scrn This test was developed and its performance characteristics determined by [facility]. It has not been cleared or approved by the [place] Food and Drug Administration. This test was performed in a CLIA certified laboratory and is intended for clinical purposes. Performed By: #### M SNP #### [facility] [address] [place], [place] [address] SGPG Ab, IgM 0.07 IV Normal 0.00-0.99 [facility] Comment on above: Order Comment: Radha gonzalez transthyretin amyloidosis seq. Result Comment: INTE RPRETIVE INFORMATION: SGPG Antibody, IgM The majority of keqqabv-5-mnrqocgbek paragloboside (SGPG) IgM-positive sera will show reactivity against MAG. Patients who are SGPG IgM positive and MAG IgM negative may have multi-focal motor neuropathy with conduction block. This test was developed and its performance characteristics determined by [facility]. It has not been cleared or approved by the [place] Food and Drug Administration. This test was performed in a CLIA certified laboratory and is intended for clinical purposes. Performed By: #### M SNP #### [facility] [address] [place], [place] [address] Lab - Miscellaneouson 2020 Performing Lab [facility] Comment on above: Order Comment: M. Fa milial transthyretin amyloidosis seq. Performed By: #### M ISC #### [place] [address] Ref Range Negative [facility] Comment on above: Order Comment: M. Fa milial transthyretin amyloidosis seq. Performed By: #### M ISC #### [place] [address] Result Negative [facility] Comment on above: Order Comment: M. Fa milial transthyretin amyloidosis seq. Performed By: #### M ISC #### [place] [address] Result cont. THE COMPLETE REPORT WILL BE SENT FOR YOUR RECORDS [facility] Comment on above: Order Comment: M. Fa milial transthyretin amyloidosis seq. Performed By: #### M ISC #### [place] [address] Test Name FAMILIAL TRANSTHYRET IN AMYLOIDOSIS SEQUENCING [facility] Comment on above: Order Comment: M. Fa milial transthyretin amyloidosis seq. Performed By: #### M ISC #### [place] [address] TSHon 12-20-2020 TSH 0.72 uIU/mL Normal 0.27-4.20 [facility] Comment on above: Order Comment: M. Fa milial transthyretin amyloidosis seq. Performed By: #### T SH, B12 #### [place] [address] Vitamin B12on 12-20-2020 Biotin Interference Samples should not b e taken from patients receiving therapy with high biotin doses (i.e. >5mg/day) until at least 8 hours following the last biotin administration. Normal [facility] Comment on above: Order Comment: Radha gonzalez transthyretin amyloidosis seq. Performed By: #### T SH, B12 #### [facility] [address] [place] [id number] Cobalamin (Vitamin B12) [Mass/Vol] 511 pg/mL Normal 232-1,245 [facility] Comment on above: Order Comment: Radha gonzalez transthyretin amyloidosis seq. Performed By: #### T SH, B12 #### [facility] [address] [place] [address] Vital Signs Date Time Vital Sign Value Performing Clinician Facility 12-03-2024 13:15-0400 Body height 158 cm [facility] [employer] Work Phone: [facility] 12-03-2024 13:15-0400 Body mass index (BMI) [Ratio] 41.25 kg/m2 [facility] [employer] Work Phone: [facility] 12-03-2024 13:15-0400 Body temperature 98.49 [degF] [employer] DO Work Phone: [facility] 12-03-2024 13:15-0400 Body weight 102.97 kg [employer] Work Phone: [facility] 12-03-2024 13:15-0400 Diastolic blood pressure 68 mm[Hg] [employer] Work Phone: [facility] 12-03-2024 13:15-0400 Heart rate 53 /min [employer] Work Phone: [facility] 12-03-2024 13:15-0400 SaO2% (BldA) [Mass fraction] 97 % [employer] Work Phone: [facility] 12-03-2024 13:15-0400 Systolic blood pressure 114 mm[Hg] [employer] Work Phone: [facility] 11-24-2024 08:57-0400 Body height 160.[address] Melissa Lopes MD Work Phone: [facility] 11-24-2024 08:57-0400 Body mass index (BMI) [Ratio] 39.2 kg/m2 Dr. Melissa Lopes MD Work Phone: [facility] 11-24-2024 08:57-0400 Body temperature 98 [degF] Dr. Melissa Lopes MD Work Phone: [facility] 11-24-2024 08:57-0400 Body weight 100.[address] Melissa Lopes MD Work Phone: [facility] 11-24-2024 08:57-0400 Diastolic blood pressure 65 mm[Hg] Dr. Melissa Lopes MD Work Phone: [facility] 11-24-2024 08:57-0400 Heart rate 63 /min Dr. Melissa Lopes MD Work Phone: [facility] 11-24-2024 08:57-0400 Respiratory rate 17 /min Dr. Melissa Lopes MD Work Phone: [facility] 11-24-2024 08:57-0400 SaO2% (BldA) [Mass fraction] 98 % Dr. Melissa Lopes MD Work Phone: [facility] 11-24-2024 08:57-0400 Systolic blood pressure 112 mm[Hg] Dr. Melissa Lopes MD Work Phone: [facility] 10-06-2024 14:06-0400 Body temperature 98.2 [degF] Melissa Lopes MD Work Phone: [facility] 10-06-2024 14:06-0400 Diastolic blood pressure 70 mm[Hg] Melissa Lopes MD Work Phone: [facility] 10-06-2024 14:06-0400 Heart rate 52 /min Melissa Lopes MD Work Phone: [facility] 10-06-2024 14:06-0400 Respiratory rate 20 /min Melissa Lopes MD Work Phone: [facility] 10-06-2024 14:06-0400 SaO2% (BldA) [Mass fraction] 98 % Melissa Lopes MD Work Phone: [facility] 10-06-2024 14:06-0400 Systolic blood pressure 126 mm[Hg] Melissa Lopes MD Work Phone: [facility] 09-16-2024 14:13-0400 Body temperature 98.1 [degF] Dr. Melissa Lopes MD Work Phone: [facility] 09-16-2024 14:13-0400 Diastolic blood pressure 43 mm[Hg] Dr. Melissa Lopes MD Work Phone: [facility] 09-16-2024 14:13-0400 Heart rate 62 /min Dr. Melissa Lopes MD Work Phone: [facility] 09-16-2024 14:13-0400 Respiratory rate 16 /min Dr. Melissa Lopes MD Work Phone: [facility] 09-16-2024 14:13-0400 SaO2% (BldA) [Mass fraction] 95 % Dr. Melissa Lopes MD Work Phone: [facility] 09-16-2024 14:13-0400 Systolic blood pressure 134 mm[Hg] Dr. Melissa Lopes MD Work Phone: [facility] 09-16-2024 09:00-0400 Inhaled oxygen flow rate 1 L/min Dr. Melissa Lopes MD Work Phone: [facility] 09-15-2024 16:27-0400 Body height 160.[address] Melissa Lopes MD Work Phone: [facility] 09-15-2024 16:27-0400 Body mass index (BMI) [Ratio] 38.6 kg/m2 Dr. Melissa Lopes MD Work Phone: [facility] 09-15-2024 16:27-0400 Body weight [address] Melissa Lopes MD Work Phone: [facility] 09-15-2024 15:00-0400 Body temperature 98.9 [degF] Dr. Melissa Lopes MD Work Phone: [facility] 09-15-2024 15:00-0400 Diastolic blood pressure 65 mm[Hg] Dr. Melissa Lopes MD Work Phone: [facility] 09-15-2024 15:00-0400 Heart rate 68 /min Dr. Melissa Lopes MD Work Phone: [facility] 09-15-2024 15:00-0400 Respiratory rate 18 /min Dr. Melissa Lopes MD Work Phone: [facility] 09-15-2024 15:00-0400 SaO2% (BldA) [Mass fraction] 97 % Dr. Melissa Lopes MD Work Phone: [facility] 09-15-2024 15:00-0400 Systolic blood pressure 168 mm[Hg] Dr. Melissa Lopes MD Work Phone: [facility] 09-15-2024 10:47-0400 Body height 160.[address] Melissa Lopes MD Work Phone: [facility] 09-15-2024 10:47-0400 Body mass index (BMI) [Ratio] 39.9 kg/m2 Dr. Melissa Lopes MD Work Phone: [facility] 09-15-2024 10:47-0400 Body weight 102.[address] Melissa Lopes MD Work Phone: [facility] 08-05-2024 10:52-0500 Body mass index (BMI) [Ratio] 39.5 kg/m2 Catarina Fitch APRN.TWISTHAND Work Phone: [facility] 08-05-2024 10:52-0500 Body weight 101.15 kg Catarina Fitch APRN.TWISTHAND Work Phone: [facility] 08-05-2024 10:52-0500 Diastolic blood pressure 76 mm[Hg] Catarina De Leonru POWDER ROOM ATTENDANT.TWISTHAND Work Phone: [facility] 08-05-2024 10:52-0500 Heart rate 55 /min Catarina Constantine POWDER ROOM ATTENDANT.TWISTHAND Work Phone: [facility] 08-05-2024 10:52-0500 SaO2% (BldA) [Mass fraction] 94 % Catarina Constantine POWDER ROOM ATTENDANT.TWISTHAND Work Phone: [facility] 08-05-2024 10:52-0500 Systolic blood pressure 126 mm[Hg] Catarina Constantine POWDER ROOM ATTENDANT.TWISTHAND Work Phone: [facility] 07-28-2024 11:26-0500 Body height 160 cm Melissa Lopes MD Work Phone: [facility] 07-28-2024 11:26-0500 Body mass index (BMI) [Ratio] 39.86 kg/m2 Melissa Lopes MD Work Phone: [facility] 07-28-2024 11:26-0500 Body temperature 96.91 [degF] Melissa Lopes MD Work Phone: [facility] 07-28-2024 11:26-0500 Body weight 102.06 kg Melissa Lopes MD Work Phone: [facility] 07-28-2024 11:26-0500 Diastolic blood pressure 80 mm[Hg] Melissa Lopes MD Work Phone: [facility] 07-28-2024 11:26-0500 Heart rate 68 /min Melissa Lopes MD Work Phone: [facility] 07-28-2024 11:26-0500 Respiratory rate 18 /min Melissa Lopes MD Work Phone: [facility] 07-28-2024 11:26-0500 SaO2% (BldA) [Mass fraction] 97 % Melissa Lopes MD Work Phone: [facility] 07-28-2024 11:26-0500 Systolic blood pressure 132 mm[Hg] Melissa Lopes MD Work Phone: [facility] 05-30-2024 08:39-0500 Diastolic blood pressure 66 mm[Hg] Dr. Melissa Lopes MD Work Phone: [facility] 05-30-2024 08:39-0500 Heart rate 51 /min Dr. Melissa Lopes MD Work Phone: [facility] 05-30-2024 08:39-0500 Respiratory rate 16 /min Dr. Melissa Lopes MD Work Phone: [facility] 05-30-2024 08:39-0500 Systolic blood pressure 129 mm[Hg] Dr. Melissa Lopes MD Work Phone: [facility] 05-15-2024 08:34-0500 Body height 160.[address] Melissa Lopes MD Work Phone: [facility] 05-15-2024 08:34-0500 Body mass index (BMI) [Ratio] 38.7 kg/m2 Dr. Melissa Lopes MD Work Phone: [facility] 05-15-2024 08:34-0500 Body weight 99.[address] Melissa Lopes MD Work Phone: [facility] 05-15-2024 08:34-0500 Diastolic blood pressure 72 mm[Hg] Dr. Melissa Lopes MD Work Phone: [facility] 05-15-2024 08:34-0500 Heart rate 68 /min Dr. Melissa Lopes MD Work Phone: [facility] 05-15-2024 08:34-0500 Respiratory rate 18 /min Dr. Melissa Lopes MD Work Phone: [facility] 05-15-2024 08:34-0500 Systolic blood pressure 149 mm[Hg] Dr. Melissa Lopes MD Work Phone: [facility] 04-29-2024 14:59-0500 Body mass index (BMI) [Ratio] 39.18 kg/m2 Catarina Rajguru POWDER ROOM ATTENDANT.TWISTHAND Work Phone: [facility] 04-29-2024 14:59-0500 Body weight 100.34 kg Catarina Rajguru POWDER ROOM ATTENDANT.TWISTHAND Work Phone: [facility] 04-29-2024 14:59-0500 Diastolic blood pressure 50 mm[Hg] Catarina Rajguru POWDER ROOM ATTENDANT.TWISTHAND Work Phone: [facility] 04-29-2024 14:59-0500 Heart rate 60 /min Catarina Rajguru POWDER ROOM ATTENDANT.TWISTHAND Work Phone: [facility] 04-29-2024 14:59-0500 Respiratory rate 16 /min Catarina Rajguru POWDER ROOM ATTENDANT.TWISTHAND Work Phone: [facility] 04-29-2024 14:59-0500 Systolic blood pressure 160 mm[Hg] Catarina Rajguru POWDER ROOM ATTENDANT.TWISTHAND Work Phone: [facility] 04-16-2024 13:53-0500 Body height 160 cm Melissa Lopes MD Work Phone: [facility] 04-16-2024 13:53-0500 Body mass index (BMI) [Ratio] 39.15 kg/m2 Melissa Lopes MD Work Phone: [facility] 04-16-2024 13:53-0500 Body temperature 97.59 [degF] Melissa Lopes MD Work Phone: [facility] 04-16-2024 13:53-0500 Body weight 100.25 kg Melissa Lopes MD Work Phone: [facility] 04-16-2024 13:53-0500 Diastolic blood pressure 82 mm[Hg] Melissa Lopes MD Work Phone: [facility] 04-16-2024 13:53-0500 Heart rate 66 /min Melissa Lopes MD Work Phone: [facility] 04-16-2024 13:53-0500 Respiratory rate 18 /min Melissa Lopes MD Work Phone: [facility] 04-16-2024 13:53-0500 SaO2% (BldA) [Mass fraction] 98 % Melissa Lopes MD Work Phone: [facility] 04-16-2024 13:53-0500 Systolic blood pressure 136 mm[Hg] Melissa Lopes MD Work Phone: [facility] 03-25-2024 14:34-0400 Body mass index (BMI) [Ratio] 39.4 kg/m2 Catarina Rajguru POWDER ROOM ATTENDANT.TWISTHAND Work Phone: [facility] 03-25-2024 14:34-0400 Body weight 100.88 kg Catarina Rajguru POWDER ROOM ATTENDANT.TWISTHAND Work Phone: [facility] 03-25-2024 14:34-0400 Diastolic blood pressure 76 mm[Hg] Catarina Rajguru POWDER ROOM ATTENDANT.TWISTHAND Work Phone: [facility] 03-25-2024 14:34-0400 Heart rate 64 /min Catarina Rajguru POWDER ROOM ATTENDANT.TWISTHAND Work Phone: [facility] 03-25-2024 14:34-0400 Respiratory rate 18 /min Catarina Rajguru POWDER ROOM ATTENDANT.TWISTHAND Work Phone: [facility] 03-25-2024 14:34-0400 Systolic blood pressure 156 mm[Hg] Catarnia Rajguru POWDER ROOM ATTENDANT.TWISTHAND Work Phone: [facility] 01-29-2024 08:01-0400 Body mass index (BMI) [Ratio] 38.62 kg/m2 Catarina Rajguru POWDER ROOM ATTENDANT.TWISTHAND Work Phone: [facility] 01-29-2024 08:01-0400 Body weight 98.88 kg Catarina Rajguru POWDER ROOM ATTENDANT.TWISTHAND Work Phone: [facility] 01-29-2024 08:01-0400 Diastolic blood pressure 70 mm[Hg] Catarina Rajguru POWDER ROOM ATTENDANT.TWISTHAND Work Phone: [facility] 01-29-2024 08:01-0400 Heart rate 56 /min Catarina Fitch POWDER ROOM ATTENDANT.TWISTHAND Work Phone: [facility] 01-29-2024 08:01-0400 Respiratory rate 16 /min Catarina Fitch POWDER ROOM ATTENDANT.TWISTHAND Work Phone: [facility] 01-29-2024 08:01-0400 Systolic blood pressure 142 mm[Hg] Catarina Fitch POWDER ROOM ATTENDANT.TWISTHAND Work Phone: [facility] 01-16-2024 08:19-0400 Body height 160 cm Melissa Lopes MD Work Phone: [facility] 01-16-2024 08:19-0400 Body mass index (BMI) [Ratio] 38.79 kg/m2 Melissa Lopes MD Work Phone: [facility] 01-16-2024 08:19-0400 Body temperature 97.59 [degF] Melissa Lopes MD Work Phone: [facility] 01-16-2024 08:19-0400 Body weight 99.34 kg Melissa Lopes MD Work Phone: [facility] 01-16-2024 08:19-0400 Diastolic blood pressure 78 mm[Hg] Melissa Lopes MD Work Phone: [facility] 01-16-2024 08:19-0400 Heart rate 68 /min Melissa Lopes MD Work Phone: [facility] 01-16-2024 08:19-0400 Respiratory rate 18 /min Melissa Lopes MD Work Phone: [facility] 01-16-2024 08:19-0400 SaO2% (BldA) [Mass fraction] 97 % Melissa Lopes MD Work Phone: [facility] 01-16-2024 08:19-0400 Systolic blood pressure 132 mm[Hg] Melissa Lopes MD Work Phone: [facility] 10-23-2023 14:19-0400 Body mass index (BMI) [Ratio] 37.91 kg/m2 Catarina Rajguru POWDER ROOM ATTENDANT.TWISTHAND Work Phone: [facility] 10-23-2023 14:19-0400 Body weight 97.07 kg Catarina Rajguru POWDER ROOM ATTENDANT.TWISTHAND Work Phone: [facility] 10-23-2023 14:19-0400 Diastolic blood pressure 62 mm[Hg] Catarina Rajguru POWDER ROOM ATTENDANT.TWISTHAND Work Phone: [facility] 10-23-2023 14:19-0400 Heart rate 70 /min Catarina Rajguru POWDER ROOM ATTENDANT.TWISTHAND Work Phone: [facility] 10-23-2023 14:19-0400 Systolic blood pressure 138 mm[Hg] Catarina Rajguru POWDER ROOM ATTENDANT.TWISTHAND Work Phone: [facility] 08-21-2023 09:02-0400 Body weight 94.8 kg Catarina Rajguru POWDER ROOM ATTENDANT.TWISTHAND Work Phone: [facility] 08-21-2023 09:02-0400 Diastolic blood pressure 76 mm[Hg] Catarina Rajguru POWDER ROOM ATTENDANT.TWISTHAND Work Phone: [facility] 08-21-2023 09:02-0400 Heart rate 64 /min Catarina Rajguru POWDER ROOM ATTENDANT.TWISTHAND Work Phone: [facility] 08-21-2023 09:02-0400 Systolic blood pressure 168 mm[Hg] Catarina Rajguru POWDER ROOM ATTENDANT.TWISTHAND Work Phone: [facility] 07-18-2023 08:15-0500 Body height 160 cm Melissa Lopes MD Work Phone: [facility] 07-18-2023 08:15-0500 Body temperature 98.01 [degF] Melissa Lopes MD Work Phone: [facility] 07-18-2023 08:15-0500 Body weight 94.92 kg Melissa Lopes MD Work Phone: [facility] 07-18-2023 08:15-0500 Diastolic blood pressure 72 mm[Hg] Melissa Lopes MD Work Phone: [facility] 07-18-2023 08:15-0500 Heart rate 51 /min Melissa Lopes MD Work Phone: [facility] 07-18-2023 08:15-0500 Respiratory rate 17 /min Melissa Lopes MD Work Phone: [facility] 07-18-2023 08:15-0500 SaO2% (BldA) [Mass fraction] 98 % Melissa Lopes MD Work Phone: [facility] 07-18-2023 08:15-0500 Systolic blood pressure 138 mm[Hg] Melissa Lopes MD Work Phone: [facility] 05-15-2023 08:54-0500 Body weight 97.8 kg Catarina Rajguru POWDER ROOM ATTENDANT.TWISTHAND Work Phone: [facility] 05-15-2023 08:54-0500 Diastolic blood pressure 70 mm[Hg] Catarina Rajguru POWDER ROOM ATTENDANT.TWISTHAND Work Phone: [facility] 05-15-2023 08:54-0500 Heart rate 60 /min Catarina Rajguru POWDER ROOM ATTENDANT.TWISTHAND Work Phone: [facility] 05-15-2023 08:54-0500 Systolic blood pressure 152 mm[Hg] Catarina Rajguru POWDER ROOM ATTENDANT.TWISTHAND Work Phone: [facility] 03-27-2023 16:35-0400 Body weight 97.34 kg Catarina Rajguru POWDER ROOM ATTENDANT.TWISTHAND Work Phone: [facility] 03-27-2023 16:35-0400 Diastolic blood pressure 78 mm[Hg] Catarina Rajguru POWDER ROOM ATTENDANT.TWISTHAND Work Phone: [facility] 03-27-2023 16:35-0400 Heart rate 70 /min Catarina Rajguru POWDER ROOM ATTENDANT.TWISTHAND Work Phone: [facility] 03-27-2023 16:35-0400 Systolic blood pressure 176 mm[Hg] Catarina Rajguru POWDER ROOM ATTENDANT.TWISTHAND Work Phone: [facility] 01-15-2023 08:18-0400 Body height 160 cm Melissa Marianne MD Work Phone: [facility] 01-15-2023 08:18-0400 Body temperature 97.2 [degF] Melissa Lopes MD Work Phone: [facility] 01-15-2023 08:18-0400 Body weight 95.44 kg Melissa Lopes MD Work Phone: [facility] 01-15-2023 08:18-0400 Diastolic blood pressure 72 mm[Hg] Melissa Lopes MD Work Phone: [facility] 01-15-2023 08:18-0400 Heart rate 64 /min Melissa Lopes MD Work Phone: [facility] 01-15-2023 08:18-0400 Respiratory rate 18 /min Melissa Lopes MD Work Phone: [facility] 01-15-2023 08:18-0400 SaO2% (BldA) [Mass fraction] 98 % Melissa Lopes MD Work Phone: [facility] 01-15-2023 08:18-0400 Systolic blood pressure 122 mm[Hg] Melissa Lopes MD Work Phone: [facility] 07-03-2022 13:48-0500 Body height 160 cm Melissa Lopes MD Work Phone: [facility] 07-03-2022 13:48-0500 Body temperature 97.39 [degF] Melissa Lopes MD Work Phone: [facility] 07-03-2022 13:48-0500 Body weight 99.34 kg Melissa Lopes MD Work Phone: [facility] 07-03-2022 13:48-0500 Diastolic blood pressure 70 mm[Hg] Melissa Lopes MD Work Phone: [facility] 07-03-2022 13:48-0500 Heart rate 63 /min Melissa Lopes MD Work Phone: [facility] 07-03-2022 13:48-0500 Respiratory rate 16 /min Melissa Lopes MD Work Phone: [facility] 07-03-2022 13:48-0500 SaO2% (BldA) [Mass fraction] 96 % Melissa Lopes MD Work Phone: [facility] 07-03-2022 13:48-0500 Systolic blood pressure 146 mm[Hg] Melissa Lopes MD Work Phone: [facility] 02-22-2022 15:46-0400 Body height 160 cm Melissa Lopes MD Work Phone: [facility] 02-22-2022 15:46-0400 Body temperature 96.8 [degF] Melissa Lopes MD Work Phone: [facility] 02-22-2022 15:46-0400 Body weight 105.33 kg Melissa Lopes MD Work Phone: [facility] 02-22-2022 15:46-0400 Diastolic blood pressure 70 mm[Hg] Melissa Lopes MD Work Phone: [facility] 02-22-2022 15:46-0400 Heart rate 66 /min Melissa Lopes MD Work Phone: [facility] 02-22-2022 15:46-0400 Respiratory rate 14 /min Melissa Lopes MD Work Phone: [facility] 02-22-2022 15:46-0400 SaO2% (BldA) [Mass fraction] 95 % Melissa Lopes MD Work Phone: [facility] 02-22-2022 15:46-0400 Systolic blood pressure 148 mm[Hg] Melissa Lopes MD Work Phone: [facility] 02-01-2022 07:58-0400 Body weight 105.23 kg Catarina Fitch APRN.TWISTHAND Work Phone: [facility] 02-01-2022 07:58-0400 Diastolic blood pressure 68 mm[Hg] Catarina Fitch APRN.TWISTHAND Work Phone: [facility] 02-01-2022 07:58-0400 Heart rate 64 /min Catarina Rajguru POWDER ROOM ATTENDANT.TWISTHAND Work Phone: [facility] 02-01-2022 07:58-0400 Systolic blood pressure 150 mm[Hg] Catarina Rajguru POWDER ROOM ATTENDANT.TWISTHAND Work Phone: [facility] 12-01-2021 07:59-0400 Body weight 104.78 kg Catarina Rajguru POWDER ROOM ATTENDANT.TWISTHAND Work Phone: [facility] 12-01-2021 07:59-0400 Diastolic blood pressure 74 mm[Hg] Catarina Rajguru POWDER ROOM ATTENDANT.TWISTHAND Work Phone: [facility] 12-01-2021 07:59-0400 Heart rate 80 /min Catarina Rajguru POWDER ROOM ATTENDANT.TWISTHAND Work Phone: [facility] 12-01-2021 07:59-0400 Systolic blood pressure 166 mm[Hg] Catarina Rajguru POWDER ROOM ATTENDANT.TWISTHAND Work Phone: [facility] 11-28-2021 13:30-0400 Body temperature 98 [degF] [facility] Work Phone: 11-28-2021 13:30-0400 Diastolic blood pressure 53 mm[Hg] [facility] Work Phone: 11-28-2021 13:30-0400 Heart rate 61 /min [facility] Work Phone: 11-28-2021 13:30-0400 Respiratory rate 16 /min [facility] Work Phone: 11-28-2021 13:30-0400 SaO2% (BldA) [Mass fraction] 97 % [facility] Work Phone: 11-28-2021 13:30-0400 Systolic blood pressure 141 mm[Hg] [facility] Work Phone: 11-28-2021 10:34-0400 Body height 157.48 cm [facility] Work Phone: 11-28-2021 10:34-0400 Body mass index (BMI) [Ratio] 41.5 kg/m2 [facility] Work Phone: 11-28-2021 10:34-0400 Body weight 103 kg [facility] Work Phone: 10-19-2021 08:01-0400 Body temperature 97.11 [degF] Melissa Lopes MD Work Phone: [facility] 10-19-2021 08:010400 Body weight 103.69 kg Melissa Lopes MD Work Phone: [facility] 10-19-2021 08:01-0400 Diastolic blood pressure 70 mm[Hg] Melissa Lopes MD Work Phone: [facility] 10-19-2021 08:01-0400 Heart rate 61 /min Melissa Lopes MD Work Phone: [facility] 10-19-2021 08:01-0400 Respiratory rate 16 /min Melissa Lopes MD Work Phone: [facility] 10-19-2021 08:01-0400 Systolic blood pressure 140 mm[Hg] Melissa Lopes MD Work Phone: [facility] 09-21-2021 10:24-0400 Body weight 104.33 kg Catarina Rajguru POWDER ROOM ATTENDANT.TWISTHAND Work Phone: [facility] 09-21-2021 10:24-0400 Diastolic blood pressure 72 mm[Hg] Catarina Rajguru POWDER ROOM ATTENDANT.TWISTHAND Work Phone: [facility] 09-21-2021 10:24-0400 Heart rate 64 /min Catarina Rajguru POWDER ROOM ATTENDANT.TWISTHAND Work Phone: [facility] 09-21-2021 10:24-0400 Systolic blood pressure 176 mm[Hg] Catarina Rajguru POWDER ROOM ATTENDANT.TWISTHAND Work Phone: [facility] NEGATED: Highlighted [id number] 10:25-0400 Body height 160.02 cm Inocencia Santoyo LPN [facility] Work Phone: NEGATED: Highlighted [id number] 10:250400 Body height 160 cm Inocencia Santoyo GENETIC SUPERVISOR [facility] Work Phone: NEGATED: Highlighted [id number] 10:25-0400 Body mass index (BMI) [Ratio] 40.89 kg/m2 Inocencia Santoyo GENETIC SUPERVISOR [facility] Work Phone: NEGATED: Highlighted [id number] 10:25-0400 Body weight 104.33 kg Inocencia Santoyo GENETIC SUPERVISOR [facility] Work Phone: NEGATED: Highlighted [id number] 10:250400 Body weight 105 kg Inocencia Santoyo GENETIC SUPERVISOR [facility] Work Phone: Encounters Encounter Date Encounter Type Care Provider Facility Start: 12-15-2024 ambulatory Maricruz Oliva Facility: [facility] Start: 12-06-2024 ambulatory Melissa Wetzel y:[facility] Start: 12-03-2024 End: 12-03-2024 Patient encounter procedure Sea Chadwick DO Work Phone: Hematology/Oncology Start: 12-03-2024 End: 12-03-2024 ambulatory Sea Chadwick DO Work Phone: Hematology/Oncology Comment on above: Acute pulmonary embo lism, unspecified pulmonary embolism type, unspecified whether acute cor pulmonale present (HCC) (Primary Dx); Family history of DVT; Elevated factor VIII level; Closed fracture of right ankle, sequela; Leg swelling Start: 12-01-2024 End: 12-01-2024 Patient encounter procedure Dorys Jade Work Phone: Podiatry Comment on above: Onychomycosis (Prima ry Dx); Pain in toe of left foot; Pain in toe of right foot Start: 12-01-2024 End: 12-01-2024 ambulatory DORYS JADE Facility:[facility] Start: 11-24-2024 End: 11-25-[address] Melissa King MD -[facility] Work Phone: Start: 11-24-2024 End: 11-24-[address] Melissa Lopes MD Work Phone: [facility] Work Phone: Start: 11-22-2024 End: 11-24-2024 Refill Catarina Fitch APRN.TWISTHAND Work Phone: Psychiatry Comment on above: Refill Request Start: 11-13-2024 End: 11-14-2024 Telephone encounter Melissa Lopes MD Work Phone: [facility] Comment on above: Orders Start: 11-10-2024 End: 11-10-2024 Follow-up encounter Melissa Lopes MD Work Phone: [facility] Start: 11-04-2024 ambulatory MELISSA LOPES Facility:[facility] Start: 10-29-2024 End: 10-29-2024 Patient encounter procedure Lillie Wu [place] -Radiology [facility] Work Phone: Start: 10-29-2024 End: 10-29-[address] Melissa Lopes MD Work Phone: [facility] Work Phone: Start: 10-29-2024 End: 10-29-2024 ambulatory Lillie Wu Facility:[facility] Start: 10-21-2024 End: 10-21-2024 Telephone encounter Melissa Lopes MD Work Phone: [facility] Comment on above: Results Start: 10-16-2024 End: 10-20-2024 Telephone encounter Melissa Lopes MD Work Phone: [facility] Start: 10-16-2024 End: 10-16-[address] Melissa Lopes MD Work Phone: [facility] Work Phone: Start: 10-16-2024 End: 10-16-2024 Patient encounter procedure [facility] Provider [facility] Department Start: 10-16-2024 End: 10-16-2024 ambulatory Melissa Lopes Facility:[facility] Start: 10-06-2024 End: 10-06-2024 ambulatory MELISSA BALDWIN MARIANNE Facility:[id number] Start: 10-06-2024 End: 10-06-2024 Office outpatient visit 15 minutes Melissa Lopes MD Work Phone: [facility] Comment on above: Acute pulmonary embo lism, unspecified pulmonary embolism type, unspecified whether acute cor pulmonale present (HCC) (Primary Dx); Family history of DVT Start: 10-06-2024 End: 10-06-2024 ambulatory MELISSA LOPES Facility:[id number] Start: 09-29-2024 End: 09-30-2024 Refill Melissa Lopes MD Work Phone: [facility] Comment on above: Refill Request Start: 09-26-2024 End: 09-29-2024 Telephone encounter Catarina Fitch APRN.TWISTHAND Work Phone: Psychiatry Start: 09-25-2024 End: 09-25-2024 Patient encounter procedure [facility] Provider [facility] Start: 09-24-2024 End: 09-25-2024 Patient encounter procedure [facility] Provider [facility] Start: 09-24-2024 End: 09-24-2024 Telephone encounter Melissa Lopes MD Work Phone: [facility] Start: 09-17-2024 End: 09-17-2024 Telephone encounter Melissa Lopes MD Work Phone: [facility] Comment on above: Patient Update Start: 09-16-2024 End: 09-17-2024 Patient encounter procedure [facility] Provider [facility] Department Start: 09-16-2024 ambulatory Melissa Lopes Facility: [facility] Start: 09-16-2024 Non-patient / Non-visit Dr. Preet CLEMENT -[facility] Start: 09-15-2024 Non-patient / Non-visit Dr. Ashlee Akers MD -[facility] Work Phone: Start: 09-15-2024 End: 09-16-2024 ambulatory José Miguel Benavidestristan Facility:[facility] Start: 09-15-2024 End: 09-16-2024 Evaluation and management of inpatient Dr. Stanislav Akers MD -Progressive Care Unit Work Phone: Start: 09-15-2024 End: 09-16-[address] Melissa Lopes MD Work Phone: [facility] Work Phone: Start: 09-15-2024 End: 09-17-2024 Patient encounter procedure [facility] Provider [facility] Start: 09-11-2024 End: 09-11-2024 Patient encounter procedure [facility] Provider [facility] Start: 09-03-2024 End: 09-03-2024 Patient encounter procedure [facility] Provider [facility] Start: 08-29-2024 End: 08-29-2024 ambulatory DORYS JADE Facility:[facility] Start: 08-29-2024 End: 08-29-2024 Patient encounter procedure Ccf Provider [facility] Department Comment on above: Onychomycosis (Prima ry Dx); Pain in toe of left foot; Pain in toe of right foot Start: 08-22-2024 End: 08-22-[address] Melissa Lopes MD Work Phone: [facility] Work Phone: Start: 08-22-2024 End: 08-22-2024 Patient encounter procedure Lillie Wu PA -Laboratory, Specimen Work Phone: Start: 08-22-2024 End: 08-22-2024 ambulatory Lillie Wu Facility:[facility] Start: 08-07-2024 End: 08-07-2024 ambulatory MELISSA LOPES Facility:[facility] Start: 08-07-2024 End: 08-07-2024 Subsequent hospital visit by physician Screen Mammo [facility] Mamm[facility] Comment on above: Encounter for screen ing mammogram for breast cancer [Z12.31] Start: 08-06-2024 End: 08-06-2024 Patient encounter procedure Lillie SILVA -[facility] Work Phone: Start: 08-06-2024 End: 08-06-2024 ambulatory Lillie Wu Facility:[facility] Start: 08-05-2024 End: 08-05-2024 Office outpatient visit 25 minutes Catarina Fitch POWDER ROOM ATTENDANT.TWISTHAND Work Phone: Psychiatry Comment on above: Major depressive dis order, recurrent episode, moderate (HCC) (Primary Dx); WOLFGANG (generalized anxiety disorder); Encounter for long-term (current) use of medications; Psychosocial stressors Start: 08-05-2024 End: 08-05-2024 ambulatory CATARINA FITCH Facility:[facility] Start: 08-04-2024 End: 08-04-2024 ambulatory MELISSA LOPES Facility:[facility] Start: 08-04-2024 Encounter for genera l adult medical examination without abnormal findings MELISSA LOPES [facility] Start: 07-28-2024 End: 07-28-2024 Patient encounter procedure Melissa Lopes MD Work Phone: [facility] Comment on above: Wellness examination (Primary Dx); Encounter for counseling regarding advance directives; Encounter for screening examination for other mental health and behavioral disorders; Encounter for screening mammogram for breast cancer; Acquired hypothyroidism; Screening for deficiency anemia; Lipid screening; Hypertension, essential; Exocrine pancreatic insufficiency; Medicare annual wellness visit, subsequent Start: 07-28-2024 End: 07-28-2024 Patient encounter status Melissa Lopes MD Work Phone: [facility] Start: 07-28-2024 End: 07-28-2024 ambulatory MELISSA LOPES Facility:[id number] Start: 07-28-2024 Encounter for genera l adult medical examination without abnormal findings MELISSA LOPES [facility] Start: 07-11-2024 End: 07-11-2024 Patient encounter procedure Ccf Provider [facility] Start: 07-01-2024 End: 07-01-2024 Telephone encounter Melissa Lopes MD Work Phone: [facility] Start: 07-01-2024 End: 07-01-2024 ambulatory CATARINA FITCH Facility:[facility] Start: 07-01-2024 End: 07-01-2024 Office outpatient visit 25 minutes Catarina Fitch POWDER ROOM ATTENDANT.TWISTHAND Work Phone: Psychiatry Comment on above: Major depressive dis order, recurrent episode, moderate (HCC) (Primary Dx); WOLFGANG (generalized anxiety disorder); Encounter for long-term (current) use of medications; Psychosocial stressors Start: 06-13-2024 [facility] Start: 06-13-2024 Non-patient / Non-visit Dr. Kassidy crespo MD -[facility] Start: 06-13-2024 End: 06-13-[address] Kassidy Hazel MD -Cardiovascular Services Work Phone: Start: 06-13-2024 End: 06-13-2024 ambulatory [facility] Facility:[facility] Start: 06-10-2024 End: 06-10-[address] [facility] Start: 06-10-2024 End: 06-10-2024 ambulatory [facility] Facility:[facility] Start: 06-05-[address] Melissa Lopes MD Work Phone: [facility] Start: 05-30-2024 End: 05-30-[address] Kassidy Hazel MD -[facility] Work Phone: Start: 05-30-2024 End: 05-30-2024 [facility] Start: 05-15-2024 Encounter for preprocedural cardiovascular examination Kassidy Hazel [facility] Start: 05-15-2024 End: 05-16-2024 Patient encounter procedure C[facility] Provider [facility] Start: 05-15-2024 End: 05-15-[address] Kassidy Hazel MD [facility] Start: 05-15-2024 End: 05-15-2024 ambulatory Kassidy Hazel Facility:[facility] Start: 05-06-2024 End: 05-06-2024 Patient encounter procedure Lillie Wu [facility] Work Phone: Start: 05-06-2024 End: 05-06-2024 ambulatory Lillie Eisenbergbruno Facility:[facility] Start: 05-02-2024 End: 05-05-2024 Refill Melissa Lopes MD Work Phone: [facility] Comment on above: Refill Request Start: 04-29-2024 End: 05-05-2024 Office outpatient visit 25 minutes Catarina Fitch APRN.TWISTHAND Work Phone: Psychiatry Comment on above: Major depressive dis order, recurrent episode, moderate (HCC) (Primary Dx); WOLFGANG (generalized anxiety disorder); Encounter for long-term (current) use of medications; Psychosocial stressors; Cognitive change Start: 04-29-2024 End: 04-29-2024 ambulatory MELISSA LOPES Facility:[facility] Start: 04-23-2024 End: 04-29-2024 Telephone encounter Catarina Fitch APRN.TWISTHAND Work Phone: Psychiatry Comment on above: Patient Update Start: 04-21-2024 End: 04-22-2024 Telephone encounter Melissa Lopes MD Work Phone: [facility] Comment on above: Orders Start: 04-18-2024 End: 04-18-2024 Telephone encounter Melissa Lopes MD Work Phone: [facility] Comment on above: Referral Information Start: 04-16-2024 End: 04-16-2024 Office outpatient visit 25 minutes Melissa Lopes MD Work Phone: [facility] Comment on above: Preop examination (P rimary Dx); Heart murmur Start: 04-16-2024 End: 04-16-2024 Preprocedural examination done Melissa Lopes MD Work Phone: [facility] Start: 04-16-2024 End: 04-16-2024 ambulatory MELISSA BALDWIN MARIANNE Facility:[id number] Start: 04-03-2024 End: 04-07-2024 Telephone encounter Catarina Fitch APRN.TWISTHAND Work Phone: Neurology Start: 04-01-2024 End: 04-02-2024 Patient encounter procedure [facility] Provider [facility] Start: 04-01-2024 ambulatory Melissa Marianne Facility: [facility] Start: 04-01-2024 End: 04-01-2024 ambulatory Melissa Lopes Facility:[facility] Start: 03-28-2024 End: 03-31-2024 Patient encounter procedure [facility] Provider [facility] Start: 03-25-2024 End: 04-01-2024 Patient encounter procedure Catarina Fitch APRN.TWISTHAND Work Phone: Psychiatry Comment on above: Medication side effe ct, initial encounter (Primary Dx); Cognitive change; Major depressive disorder, recurrent episode, moderate (HCC); WOLFGANG (generalized anxiety disorder); Encounter for long-term (current) use of medications; Fall (on) (from) other stairs and steps, initial encounter; Drug-induced tremor Start: 03-25-2024 End: 03-25-2024 ambulatory MELISSA LOPES Facility:[facility] Start: 03-21-2024 End: 03-21-2024 Telephone encounter Catarina Fitch APRN.TWISTHAND Work Phone: Psychiatry Comment on above: Appointment Start: 02-28-2024 End: 02-28-2024 ambulatory DORYS GHOSHBIRGIT Facility:[facility] Start: 02-28-2024 End: 02-28-2024 Patient encounter procedure Dorys Jade Work Phone: Podiatry Comment on above: Onychomycosis (Prima ry Dx); Pain in toe of left foot; Pain in toe of right foot Start: 02-26-2024 End: 02-26-2024 ambulatory [facility] Facility:[facility] Start: 02-14-2024 End: 02-14-2024 Telephone encounter Melissa Lopes MD Work Phone: [facility] Comment on above: Orders (EMG) Start: 02-13-2024 End: 02-14-2024 Telephone encounter Melissa Lopes MD Work Phone: [facility] Comment on above: Orders (EMG Clarific ation ) Start: 02-08-2024 End: 02-08-2024 ambulatory Melissa Lopes Facility:[facility] Start: 01-30-2024 End: 01-30-2024 Telephone encounter Melissa Lopes MD Work Phone: [facility] Comment on above: Neurology Referral p alphonso Start: 01-29-2024 End: 01-29-2024 ambulatory MELISSA BALDWIN MARIANNE Facility:[facility] Start: 01-29-2024 End: 01-29-2024 Patient encounter procedure Catarina Fitch APRN.TWISTHAND Work Phone: Psychiatry Comment on above: Major depressive dis order, recurrent episode, moderate (HCC) (Primary Dx); WOLFGANG (generalized anxiety disorder) Start: 01-27-2024 End: 01-28-2024 Refill Catarina Fitch APRN.TWISTHAND Work Phone: Psychiatry Comment on above: Refill Request Start: 01-24-2024 Telephone encounter Melissa Lopes MD Work Phone: [facility] Comment on above: Referral Request Start: 01-23-2024 Telephone encounter Ophelia salcedo Drawing Hand Comment on above: Appointment (Missed patients call, called back left a message to try me again/) Appointment (Patient returned my call to schedule wellness, has a 6 mo f/u the week before but she did not remember getting that or writing it down, wanted that date for wellness/) Start: 01-21-2024 Refill Catarina Prather u POWDER ROOM ATTENDANT.TWISTHAND Work Phone: Psychiatry Comment on above: Refill Request Start: 01-18-2024 Telephone encounter Ophelia salcedo Drawing Hand Comment on above: Appointment (Left me ssage to schedule wellness for ) Start: 01-16-2024 End: 01-16-2024 Office outpatient visit 15 minutes Melissa Lopes MD Work Phone: [facility] [place] Comment on above: Acquired hypothyroid ism (Primary Dx); Paresthesia; Primary osteoarthritis of both hips; Chronic midline low back pain, unspecified whether sciatica present; Major depressive disorder, recurrent episode, moderate (HCC); Undifferentiated connective tissue disease (HCC); Irritable bowel syndrome, unspecified type; Systolic murmur Start: 01-16-2024 End: 01-16-2024 ambulatory MELISSA NICOLASA LANDRYON Facility:[id number] Start: 01-08-2024 Patient encounter procedure Ccf Provider [facility] Start: 01-08-2024 End: 01-08-2024 ambulatory Melissa Marianne Facility:[facility] Start: 01-07-2024 Refill Catarina ayala POWDER ROOM ATTENDANT.TWISTHAND Work Phone: Psychiatry Comment on above: Refill Request Start: 12-21-2023 Patient encounter procedure Ccf Provider [facility] Start: 12-21-2023 End: 12-21-2023 ambulatory Melissa Marianne Facility:[facility] Start: 12-20-2023 Patient encounter procedure Ccf Provider [facility] Start: 12-18-2023 End: 12-18-2023 ambulatory Vladimir Becerra Facility:[facility] Start: 11-27-2023 End: 11-27-2023 Patient encounter procedure Dorys Jade Work Phone: Podiatry Comment on above: Onychomycosis (Prima ry Dx); Pain in toe of left foot; Pain in toe of right foot Start: 11-22-2023 Patient encounter procedure Ccf Provider [facility] Start: 11-20-2023 Patient encounter procedure Ccf Provider [facility] Start: 11-06-2023 Patient encounter procedure [facility] Provider [facility] Start: 11-01-2023 Telephone encounter Dorys Lopes Work Phone: Podiatry Comment on above: Appointment (Recent urgent care visit follow up); Patient Update Start: 10-23-2023 End: 10-23-2023 Patient encounter procedure Catarina Fitch POWDER ROOM ATTENDANT.TWISTHAND Work Phone: Psychiatry Comment on above: Recurrent major depr essive disorder, in partial remission (HCC) (Primary Dx); WOLFGANG (generalized anxiety disorder) Start: 10-18-2023 Refill Catarina Prather u POWDER ROOM ATTENDANT.TWISTHAND Work Phone: Psychiatry Comment on above: Refill Request Start: 10-16-2023 Patient encounter procedure [facility] Provider [facility] Start: 10-01-2023 Patient encounter procedure [facility] Start: 09-17-2023 Patient encounter procedure [facility] Provider [facility] Start: 08-29-2023 Patient encounter procedure [facility] Provider [facility] Start: 08-27-2023 Patient encounter procedure [facility] Provider [facility] Start: 08-24-2023 Patient encounter procedure [facility] Provider [facility] Start: 08-22-2023 Patient encounter procedure [facility] Provider [facility] Start: 08-21-2023 End: 08-21-2023 Patient encounter procedure Catarina Fitch POWDER ROOM ATTENDANT.TWISTHAND Work Phone: Psychiatry Comment on above: Major depressive dis order, recurrent episode, moderate (HCC) (Primary Dx); WOLFGANG (generalized anxiety disorder) Start: 08-20-2023 End: 08-20-2023 Patient encounter procedure Dorys Jade Work Phone: Podiatry Comment on above: Onychomycosis (Prima ry Dx); Pain in toe of left foot; Pain in toe of right foot Start: 08-10-2023 Refill Catarina De Leonr u POWDER ROOM ATTENDANT.TWISTHAND Work Phone: Psychiatry Comment on above: Refill Request Start: 08-07-2023 Documentation procedure [address]ammog dio Coordinator [facility] Start: 08-07-2023 Letter encounter Mammography Coordinator [facility] Start: 07-18-2023 End: 07-18-2023 Patient encounter procedure Melissa Lopes MD Work Phone: [facility] Comment on above: Wellness examination (Primary Dx); Encounter for screening mammogram for breast cancer; Advanced directives, counseling/discussion; Acquired hypothyroidism; Screening for deficiency anemia; Lipid screening; Medicare annual wellness visit, subsequent Start: 07-18-2023 End: 07-18-2023 Patient encounter status Melissa Lopes MD Work Phone: [facility] Work Phone: Start: 05-15-2023 End: 05-15-2023 Patient encounter procedure Catarina Fitch APRN.TWISTHAND Work Phone: Psychiatry Comment on above: Major depressive dis order, recurrent episode, moderate (HCC) (Primary Dx); WOLFGANG (generalized anxiety disorder) Start: 04-26-2023 Patient encounter procedure [facility] Provider [facility] Start: 04-10-2023 Patient encounter procedure [facility] Provider [facility] Start: 04-05-2023 Patient encounter procedure [facility] Provider [facility] Start: 03-27-2023 End: 03-27-2023 Patient encounter procedure Catarina Fitch APRN.TWISTHAND Work Phone: Psychiatry Comment on above: WOLFGANG (generalized anx iety disorder) (Primary Dx); Recurrent major depressive disorder, in partial remission (HCC) Start: 02-15-2023 Patient encounter procedure [facility] Provider [facility] Start: 02-09-2023 End: 02-09-2023 Patient encounter procedure Dorys Jade Work Phone: Podiatry Comment on above: Onychomycosis (Prima ry Dx); Pain in toe of left foot; Pain in toe of right foot Start: 02-08-2023 Patient encounter procedure [facility] Provider [facility] Start: 01-15-2023 End: 01-15-2023 Office outpatient visit 15 minutes Melissa Lopes MD Work Phone: [facility] Comment on above: Acquired hypothyroid ism (Primary Dx); Undifferentiated connective tissue disease (HCC); Primary osteoarthritis of both hips; Irritable bowel syndrome, unspecified type Start: 12-13-2022 Patient encounter procedure [facility]cf Provider [facility] Start: 11-09-2022 Telephone encounter Catarina canseco APRN.TWISTHAND Work Phone: Neurology Comment on above: Appointment Start: 11-04-2022 Patient encounter procedure Ccf Provider [facility] Start: 10-17-2022 End: 10-17-2022 ambulatory [facility] Work Phone: Start: 10-17-2022 End: 10-17-2022 Patient encounter procedure Melissa [facility]-Laboratory, Specimen Start: 10-09-2022 End: 10-09-2022 Non-patient / Non-visit Melissa Lopes [facility] Start: 10-09-2022 End: 10-09-2022 ambulatory [facility] Work Phone: Start: 10-09-2022 End: 10-09-2022 Patient encounter procedure [facility]-Pulmonary Services/Neurology Start: 10-03-2022 End: 10-03-2022 Patient encounter procedure Dorys Jade Work Phone: Podiatry Comment on above: Onychomycosis (Prima ry Dx); Pain in toe of left foot; Pain in toe of right foot Start: 09-20-2022 End: 09-20-2022 Patient encounter procedure Catarina Fitch APRN.TWISTHAND Work Phone: Psychiatry Comment on above: NO SHOW (Primary Dx) Start: 07-28-2022 End: 07-28-2022 ambulatory [facility] Work Phone: Start: 07-28-2022 End: 07-28-2022 Patient encounter procedure [facility] Start: 07-27-2022 Telephone encounter Melissa Lopes MD Work Phone: [facility] Comment on above: Results Start: 07-26-2022 End: 07-26-2022 Subsequent hospital visit by physician Screen Mammo [facility] M[facility] Comment on above: Encounter for screen ing mammogram for malignant neoplasm of breast [Z12.31] Start: 2022 Refill Catarina ayala APRN.CNP Work Phone: Psychiatry Comment on above: Refill Request Start: 07-11-2022 Patient encounter procedure [facility]cf Provider [facility] Start: 07-10-2022 End: 07-10-2022 Patient encounter procedure Dorys Ghoshmignon Work Phone: Podiatry Comment on above: Numbness (Primary Dx ); Onychomycosis Start: 07-03-2022 End: 07-03-2022 Patient encounter procedure Melissa Lopes MD Work Phone: [facility] Comment on above: Wellness examination (Primary Dx); Major depressive disorder, recurrent episode, moderate (HCC); Irritable bowel syndrome with both constipation and diarrhea; Lipid screening; Screening for deficiency anemia; Encounter for screening mammogram for malignant neoplasm of breast Start: 07-03-2022 End: 07-03-2022 Patient encounter status Melissa Lopes MD Work Phone: [facility] Start: 05-09-2022 End: 05-09-2022 ambulatory [facility] Work Phone: Start: 05-09-2022 End: 05-09-2022 Patient encounter procedure [facility] Start: 05-02-2022 Patient encounter procedure [facility] Provider [facility] Start: 04-25-2022 End: 04-25-2022 ambulatory [facility] Work Phone: Start: 04-25-2022 End: 04-25-2022 Discharged Recurring [facility]-Physical Therapy Start: 03-16-2022 Telephone encounter Melissa Lopes MD Work Phone: [facility] Comment on above: Referral Information (GI referral) Start: 02-22-2022 End: 02-22-2022 Office outpatient visit 15 minutes Melissa Lopes MD Work Phone: [facility] [place] Comment on above: History of IBS (Prim ruby Dx); Screening for colon cancer Start: 02-17-2022 Chart abstracting Melissa Lopes MD Work Phone: Pain Management Start: 02-01-2022 End: 02-01-2022 Patient encounter procedure Catarina Fitch APRN.TWISTHAND Work Phone: Psychiatry Comment on above: Recurrent major depr essive disorder, in partial remission (HCC) (Primary Dx); WOLFGANG (generalized anxiety disorder) Start: 01-20-2022 Patient encounter procedure [facility] Provider [facility] Start: 12-01-2021 End: 12-01-2021 Patient encounter procedure Catarina Fitch APRN.TWISTHAND Work Phone: Psychiatry Comment on above: WOLFGANG (generalized anx iety disorder) (Primary Dx); Major depressive disorder, recurrent episode, moderate (HCC) Start: 11-28-2021 End: 11-28-2021 Admission to same day surgery center [facility] Start: 09-21-2021 End: 09-21-2021 Patient encounter procedure Catarina Fitch APRN.TWISTHAND Work Phone: Psychiatry Comment on above: Major depressive dis order, recurrent episode, moderate (HCC) (Primary Dx); WOLFGANG (generalized anxiety disorder) Start: 12-20-2020 End: 12-21-2020 ambulatory MELISSA LOPES [facility] Procedures Date Procedure Procedure Detail Performing Clinician Start: 10-29-2024 Plain X-ray abdomen Dr. Melissa Lopes MD Work Phone: Start: 10-16-[address] Melissa Lopes MD Work Phone: Comment on above: Result: c.1601G>A (p .[id number]) - Not DetectedThis result is not associated with an increased risk for venousthromboembolism. See Additional Clinical Information andComments.Additional Clinical Information:Venous thromboembolism is a multifactorial diseaseinfluenced by genetic, environmental, and circumstantialrisk factors. The c.1601G>A (p. [id number]) variant in theF5 gene, commonly referred to as Factor V Leiden, is agenetic risk factor for venous thromboembolism.Heterozygous carriers of this variant have a 6- to 8-foldincreased risk for venous thromboembolism. Individualshomozygous for this variant (ie, with a copy of the varianton each chromosome) have an approximately 80-fold increasedrisk for venous thromboembolism. Individuals who carry tessa c.*97G>A variant in the F2 gene and Factor V Leiden havean approximately 20-fold increased risk for venousthromboembolism. Risks are likely to be even higher in morecomplex genotype combinations involving the F2 c.*97G>Avariant and Factor V Leiden (PMID: [id number]). Additionalrisk factors include but are not limited to: deficiency ofprotein C, protein S, or antithrombin III, age, male sex,personal or family history of deep vein thromboembolism,smoking, surgery, prolonged immobilization, malignantneoplasm, tamoxifen treatment, raloxifene treatment, oralcontraceptive use, hormone replacement therapy, andpregnancy. Management of thrombotic risk and thromboticevents should follow established guidelines and fit theclinical circumstance. This result cannot predict theoccurrence or recurrence of a thrombotic event.Comment:Genetic counseling is recommended to discuss thepotential clinical implications of positive results, aswell as recommendations for testing family members.Genetic Coordinators are available for health careproviders to discuss results at [phone]).Test Details:Variant Analyzed: c.1601G>A (p. [id number]), referred toas Factor V LeidenMethods/Limitations:DNA analysis of the F5 gene (NM_000130.5) was performedby PCR amplification followed by restriction enzymeanalysis. The diagnostic sensitivity is >99%. Results mustbe combined with clinical information for the most accurateinterpretation. Molecular-based testing is highly accurate,but as in any laboratory test, diagnostic errors may occur.False positive or false negative results may occur forreasons that include genetic variants, blood transfusions,bone marrow transplantation, somatic or tissue-specificmosaicism, mislabeled samples, or erroneous representationof family relationships.This test was developed and its performance characteristicsdetermined by [employer]. It has not been cleared orapproved by the Food and Drug Administration.References:Aarti S, Aury LOMBARDI, Anupam R, Maxx WW, Edy JH; ACMGProfessional Practice and Guidelines Committee. Addendum:[employer] consensus statement onfactor V Leiden mutation testing. Giovanna Med. 2020Aug 13.doi: 10.1038/[id number]. PMID: 29748862.Mohan MCDONALD. Factor V Leiden Thrombophilia. 1998October 22(Updated 2017Jun 14). In: Artie MP, Gloria HH, Seven RA,et al., editors. [employer](R) (Internet). [place] ([place]):[facility]; 0733-4130. Availablefrom: https://www.ncbi.nlm.nih.gov/books/RHT2816/Ja S, Aury LOMBARDI, Mynor X, Bossman B, Angie EB, Betty P,Naldo CS; ACMG Laboratory Artist Representative Committee.Venous thromboembolism laboratory testing (factor V Leidenand factor II c.*97G>A), 2018 update: a technical standardof the [employer] and [employer]omics(ACMG). Giovanna Med. 2018 May;20(12):2137-6720. doi:10.1038/[id number]. Epub 2017Mar 15. PMID: 40783317. Start: 10-16-[address] Damian Lopes MD Work Phone: Comment on above: Test Ordered: [id number] Antithrombin ActivityAntithrombin Activity 145 [H ] % Reference Range: 75-135An elevated antithrombin activity is of no known clinicalsignificance. Direct Xa inhibitor anticoagulants such asrivaroxaban, apixaban and edoxaban will lead to spuriouslyelevated antithrombin activity levels possibly masking adeficiency.Performed at: [address] [id number] Director: Magdiel Lucas MD, Phone: [phone] at: [facility] [place], [place] [id number] Director: Shiv Calvin PhD, Phone: [phone] TEST RESULTS LIMITSV enous Thromb. Patients on VKA Homocysteine TEST NOT PERFORMEDHomocysteine (801103) testing is temporarily suspended dueto reagent backorder. Pending and incoming homocysteineorders will be cancelled. Testing will resume when reagentbecomes available; date to be determined. Consider orderingKnodium test code 589756, Homocyst(e)ine, if needed.Reference Range:5.0 - 15.0 Factor VIII Activity 236 High %FVIII activity can increase in a variety of clinicalsituations including normal , in samples drawn frompatients (particularly children) who are visibly stressed atthe time of phlebotomy, as acute phase reactants, or inresponse to certain drug therapies such as DDAVP.Persistently elevated FVIII activity is a risk factor forvenous thrombosis as well as recurrence of venousthrombosis. Risk is graded and increases with the degree ofelevation. Although elevated FVIII activity has beenidentified to cluster within families, a genetic basis forthe elevation has not yet been elucidated (Br J Haematol.2012; 157:653-663).Reference Range:57 - 163 Antithrombin Activity, Plasma 145 High %An elevated antithrombin activity is of no known clinicalsignificance. Direct Xa inhibitor anticoagulants such asrivaroxaban, apixaban and edoxaban will lead to spuriouslyelevated antithrombin activity levels possibly masking adeficiency.Reference Range:7 months and older: 75 - 135 Protein C Antigen 110 %Reference Range:17 years and older: 60 - 150 Protein S Antigen, Total 112 %Reference Range:7 months and older: 60 - 150This test was developed and its performance characteristicsdetermined by [employer]. It has not been cleared or approvedby the Food and Drug Administration. Factor VII Antigen 146 %Reference Range:7 months and older: 60 - 175Results of this test are for research purposes only perthe assay water gas operator. The performance characteristics ofthis assay have not been established. The result should notbe used as a diagnostic procedure without confirmation ofthe diagnosis by another medically established diagnosticproduct or procedure. Protein C Ag/FVII Ag Ratio 0.8 ratioReference Range:0.5 - 2.2Results of this test are for research purposes only perthe assay water gas operator. The performance characteristics ofthis assay have not been established. The result should notbe used as a diagnostic procedure without confirmation ofthe diagnosis by another medically established diagnosticproduct or procedure. Protein S Ag/FVII Ag Ratio 0.8 ratioReference Range:0.5 - 2.2Results of this test are for research purposes only perthe assay water gas operator. The performance characteristics ofthis assay have not been established. The result should notbe used as a diagnostic procedure without confirmation ofthe diagnosis by another medically established diagnosticproduct or procedure. Act. Prt C Resist w/FV Defic. 2.7 ratioThe APCR result may be falsely increased (masking anabnormal, low APCR result) in patients on direct Xainhibitor (e.g., rivaroxaban, apixaban, edoxaban) or adirect thrombin inhibitor (e.g., dabigatran) anticoagulanttherapy due to assay interference by these drugs.Reference Range:2.2 - 3.5 APTT 25.8 secThis test has not been validated for monitoringunfractionated heparin therapy. aPTT-based therapeuticranges for unfractionated heparin therapy have not beenestablished. Consider ordering Heparin anti-Xa(unfractionated).Reference Range:18 years and older: 22.9 - 30.2 APTT 1:1 WORK AND FAMILY LIFE CONSULTANT Testing Not IndicatedThis test was developed and its performance characteristicsdetermined by [employer]. It has not been cleared or approvedby the [place] Food and Drug Administration. APTT 1:1 Saline Testing Not IndicatedThis test was developed and its performance characteristicsdetermined by [facility]. It has not been cleared or approvedby the [place] Food and Drug Administration.LAC Interpretation A lupus anticoagulant is not detected. All antiphospholipid antibodies evaluated are normal. As antibody titers may fluctuate with time, repeat testing may be indicated. Please contact [employer] [facility] if furtherclarification is needed. DRVVT Screen Seconds 68.0 High secReference Range:<= 47.0 DRVVT Confirm Seconds 56.8 sec DRVVT Ratio 1.1 ratioReference Range:0.8 - 1.2 Hexagonal Phospholipid Neutral 5 sec This value is NEGATIVE.This is a qualitative assay and is therefore reported aspositive for lupus anticoagulant or negative. Thequantitative value is provided as an aid in diagnosis.Reference Range:0 - 11 Anticardiolipin Ab, IgG <10 GPLReference Range:Negative: <15Indeterminate: 15 - 20Low to medium positive: >20 - 80High positive: >80 Anticardiolipin Ab, IgM <10 MPLReference Range:Negative: <13Indeterminate: 13 - 20Low to medium positive: >20 - 80High positive: >80 Beta-2 Glycoprotein I, IgG <10 SGUThe reference interval reflects a 3SD or 99th percentileinterval.Reference Range:Negative: <21 Beta-2 Glycoprotein I, IgM <10 SMUThe reference interval reflects a 3SD or 99th percentileinterval.Reference Range:Negative: <33 Beta-2 Glycoprotein I, (more content not included)... Start: 09-16-[address] Melissa Lopes MD Work Phone: Start: 09-15-2024 Carbon dioxide measu rement, partial pressure Dr. Melissa Lopes MD Work Phone: Start: 09-15-2024 Gases blood o2 satur ation only direct luciana Dr. Melissa Lopes MD Work Phone: Start: 09-15-2024 Measurement of parti al pressure of oxygen in blood Dr. Melissa Lopes MD Work Phone: Start: 09-15-[address] Melissa Lopes MD Work Phone: Start: 09-15-2024 CT angiography of ch est with contrast Dr. Melissa Lopes MD Work Phone: Start: 08-22-[address] Melissa Lopes MD Work Phone: Start: 08-22-[address] Melissa Lopes MD Work Phone: Start: 08-22-[address] Melissa Lopes MD Work Phone: Start: 08-22-2024 Ova OR parasites identification Dr. Melissa Lopes MD Work Phone: Start: 08-22-2024 Ova&parasites direct smears concentration & id Dr. Melissa Lopes MD Work Phone: Start: 08-07-2024 Screening digital br east tomosynthesis bi Melissa Lopes MD Work Phone: Start: 08-04-2024 Lipid 1996 panel - S beatriz or Plasma Screen Wstr Start: 06-13-2024 Cardiovascular stres s test using pharmacologic stress agent Dr. Melissa Lopes MD Work Phone: Start: 05-15-2024 Evaluation of diagno stic study results Dr. Melissa Lopes MD Work Phone: Start: 01-08-2024 Colonoscopy Ophelia finleyge Start: 08-06-2023 Lipid 1996 panel - S beatriz or Plasma Mammography Coordinator Start: 07-26-2022 Lipid 1996 panel - S beatriz or Plasma Catarina Fitch APRN.TWISTHAND Work Phone: Start: 07-26-2022 End: 07-26-2022 Mammography Melissa Lopes MD Work Phone: Start: 11-28-2021 Implantation of neur ostimulator in spine Start: 09-29-2021 End: 09-29-2021 Arthrocentesis aspir&/inj major jt/bursa w/o us Greg Banks MD Work Phone: Start: 09-29-2021 End: 09-29-2021 Betamethasone acet&sod phosp Greg marrero MD Work Phone: Start: 09-29-2021 End: 09-29-2021 BP scrn no perf at interval Greg edwards MD Work Phone: Start: 09-29-2021 End: 09-29-2021 Calc BMI out nrm bora nof/u Greg marrero MD Work Phone: Start: 09-29-2021 End: 09-29-2021 Current tobacco non-user cad cap copd pv dm Greg Banks MD Work Phone: Start: 09-29-2021 End: 09-29-2021 Docrev cur meds by donna marrero MD Work Phone: Start: 09-29-2021 End: 09-29-2021 Osteoarthritis symptoms&funcjal status asses Greg Banks MD Work Phone: Start: 09-29-2021 End: 09-29-2021 Pain neg no plan Greg Banks MD Work Phone: Start: 09-29-2021 End: 09-29-2021 Patient encounter procedure Greg edwards MD Work Phone: Start: 08-03-2020 Colonoscopy Melissa connor MD Work Phone: Start: 09-09-2007 Colonoscopy Catarina Dakota jacobsenu POWDER ROOM ATTENDANT.TWISTHAND Work Phone: Giardia Antigen (NOAH) Damian Lopes Ova OR parasites identification Melissa Lopes NEGATED: Highlighted rowStart: 09-29-2021 End: 09-29-2021 Documentation of current medications Inocencia Santoyo LPN Plan of Treatment Date Care Activity Detail Author Start: 01-07-2034 Screening for malign ant neoplasm of colon [facility] Start: 07-10-2032 Urine microalbumin profile [facility] Start: 08-03-2030 Colonoscopy COLONOSCOPY [facility] Start: 08-03-2030 COLORECTAL CANCER SCREENING COLORECTAL CANCER SCREENING [facility] Start: 08-03-2030 Screening for malign ant neoplasm of colon [facility] Start: 08-04-2029 Lipid panel Lipid Screening [facility] Start: 08-06-2028 Lipid panel Lipid Screening [facility] Start: 08-04-2027 Diabetes Screening Diabetes Screenin g [facility] Start: 07-26-2027 Lipid 1996 panel - S beatriz or Plasma Lipid Screening [facility] Start: 07-26-2027 Lipid panel Lipid Screening [facility] Start: 07-26-2027 LIPID SCREEN LIPID SCREEN [facility] Start: 08-06-2026 Diabetes Screening Diabetes Screenin g [facility] Start: 10-06-2025 Annual PCP Team Rn International randal Disease Visit Annual PCP Team Chronic Disease Visit [facility] Start: 10-06-2025 BP Controlled (<130/80) BP Controlle d (<130/80) [facility] Start: 08-05-2025 BP Controlled (<130/80) BP Controlle d (<130/80) [facility] Start: 07-28-2025 Annual PCP Team Rn International randal Disease Visit Annual PCP Team Chronic Disease Visit [facility] Start: 07-28-2025 Anxiety Screening Anxiety Screening [facility] Start: 07-26-2025 [facility]AB[facility] Start: 07-26-2025 Diabetes Screening Diabetes Screenin g [facility] Start: 04-16-2025 Annual PCP Team Rn International randal Disease Visit Annual PCP Team Chronic Disease Visit [facility] Start: 03-31-2025 End: 03-31-2025 ambulatory 03/31/2025 8:30 AM EDT Visit (SP) Office Hematology/Oncology [address] [place], [place] [phone] Sea Chadwick DO [address] [place] [address] OV/US 12/10* Hematology/Oncology Comment on above: OV/US 12/10* Start: 03-05-2025 End: 03-05-2025 Patient encounter procedure 03/05/2025 8:00 AM EDT Office Visit Podiatry [address] [place] [address] Dorys Jade [address] [place] [address] 3 month follow up Podiatry Comment on above: 3 month follow up Start: 01-26-2025 End: 01-26-2025 Patient encounter procedure 01/26/2025 8:50 AM EDT [facility] [address] [place] [address] Melissa Lopes MD [address] [place] [address] 6 Month Follow Up [facility] [place] Comment on above: 6 Month Follow Up Start: 01-15-2025 Annual PCP Team Rn International randal Disease Visit Annual PCP Team Chronic Disease Visit [facility] Start: 12-23-2024 End: 12-23-2024 Patient encounter procedure 12/23/2024 9:00 AM EDT Office Visit Psychiatry [address] [place] [phone] Catarina Fitch, POWDER ROOM ATTENDANT.TWISTHAND [address] [place] [phone] follow up Psychiatry Comment on above: follow up Start: 12-10-2024 End: 12-10-2024 Patient encounter procedure 12/10/2024 8:00 AM EDT Office Visit Vasculary Surgery [address] [facility], [place] [phone] Acute pulmonary embolism, unspecified pulmonary embolism type, unspecified wheth... Vasculary Surgery Comment on above: Acute pulmonary embo lism, unspecified pulmonary embolism type, unspecified wheth... Start: 12-03-2024 End: 12-03-2024 FQ visit new patient 12/03/2024 1:00 PM EDT Visit (SP) Office Hematology/Oncology [address] [facility], [place] [phone] Sea Chadwick DO [address] [place] [address] NEW PATIENT Hematology/Oncology Comment on above: NEW PATIENT Start: 12-01-2024 End: 12-01-2024 Patient encounter procedure 12/01/2024 3:30 PM EDT Office Visit Podiatry [address] [place], [place] [phone] Dorys Jade [address] [facility] [place] [phone] follow up nail care ; patient had foot surgery on 08/13/2024 nails are accessible Podiatry Comment on above: follow up nail care ; patient had foot surgery on 08/13/2024 nails are accessible Start: 11-04-2024 End: 11-04-2024 Patient encounter procedure 11/04/2024 8:30 AM EDT Office Visit Psychiatry [address] [place] [address] Catarina Fitch, POWDER ROOM ATTENDANT.TWISTHAND [address] [place] [address] follow up Psychiatry Comment on above: follow up Start: 10-29-2024 Plain X-ray abdomen Abdomen Single V iew [facility] Start: 10-29-2024 XR Abdomen Single view [facility] Start: 10-16-2024 Factor V Leiden genotype [facility] Start: 10-16-2024 Procedure [facility] Start: 10-06-2024 End: 01-05-2025 Antithrombin actual/normal in Platelet poor plasma by Chromogenic method ANTITHROMBIN ACTIVITY Lab Routine Acute pulmonary embolism, unspecified pulmonary embolism type, unspecified whether acute cor pulmonale present (HCC) Family history of DVT Expected: 10/06/2024, Expires: 01/05/2025 [facility] Comment on above: Expected: 10/06/2024 , Expires: 01/05/2025 Start: 10-06-2024 End: 01-05-2025 aPTT W excess hexagonal phase phospholipid in Platelet poor plasma by Coagulation assay HEX PHASE PL LILLIAM Lab Routine Acute pulmonary embolism, unspecified pulmonary embolism type, unspecified whether acute cor pulmonale present (HCC) Family history of DVT Expected: 10/06/2024, Expires: 01/05/2025 [facility] Comment on above: Expected: 10/06/2024 , Expires: 01/05/2025 Start: 10-06-2024 End: 01-05-2025 C reactive protein [Mass/volume] in Serum or Plasma C-REACTIVE PROTEIN Lab Routine Acute pulmonary embolism, unspecified pulmonary embolism type, unspecified whether acute cor pulmonale present (HCC) Family history of DVT Expected: 10/06/2024, Expires: 01/05/2025 [facility] Comment on above: Expected: 10/06/2024 , Expires: 01/05/2025 Start: 10-06-2024 End: 01-05-2025 F2 gene mutations found [Identifier] in Blood or Tissue by Molecular genetics method Nominal PROTHROMBIN GENE PCR Lab Routine Acute pulmonary embolism, unspecified pulmonary embolism type, unspecified whether acute cor pulmonale present (HCC) Family history of DVT Expected: 10/06/2024, Expires: 01/05/2025 [facility] Comment on above: Expected: 10/06/2024 , Expires: 01/05/2025 Start: 10-06-2024 End: 01-05-2025 FACTOR V LEIDEN/PCR FACTOR V LEIDEN/PCR Lab Routine Acute pulmonary embolism, unspecified pulmonary embolism type, unspecified whether acute cor pulmonale present (HCC) Family history of DVT Expected: 10/06/2024, Expires: 01/05/2025 [facility] Comment on above: Expected: 10/06/2024 , Expires: 01/05/2025 Start: 10-06-2024 End: 01-05-2025 Fibrinogen [Mass/volume] in Platelet poor plasma by Coagulation assay FIBRINOGEN Lab Routine Acute pulmonary embolism, unspecified pulmonary embolism type, unspecified whether acute cor pulmonale present (HCC) Family history of DVT Expected: 10/06/2024, Expires: 01/05/2025 [facility] Comment on above: Expected: 10/06/2024 , Expires: 01/05/2025 Start: 10-06-2024 End: 01-05-2025 Homocysteine [Moles/volume] in Serum or Plasma HOMOCYSTEINE Lab Routine Acute pulmonary embolism, unspecified pulmonary embolism type, unspecified whether acute cor pulmonale present (HCC) Family history of DVT Expected: 10/06/2024, Expires: 01/05/2025 [facility] Comment on above: Expected: 10/06/2024 , Expires: 01/05/2025 Start: 10-06-2024 End: 01-05-2025 HYPERCOAG DIAG PNL HYPERCOAG DIAG PNL Lab Routine Acute pulmonary embolism, unspecified pulmonary embolism type, unspecified whether acute cor pulmonale present (HCC) Family history of DVT Expected: 10/06/2024, Expires: 01/05/2025 [facility] Comment on above: Expected: 10/06/2024 , Expires: 01/05/2025 Start: 10-06-2024 End: 10-06-2024 Patient encounter procedure 10/06/2024 2:00 PM EDT Office Visit [facility] [address] [place] [phone] Melissa Lopes MD [address] [place] [address] follow up [facility], discharged on 09/15/2024 dx: blood clot [facility] Comment on above: follow up [facility] , discharged on 09/15/2024 dx: blood clot Start: 10-06-2024 End: 01-05-2025 PROTEIN C FUNCT PROTEIN C FUNCT Lab Routine Acute pulmonary embolism, unspecified pulmonary embolism type, unspecified whether acute cor pulmonale present (HCC) Family history of DVT Expected: 10/06/2024, Expires: 01/05/2025 [facility] Comment on above: Expected: 10/06/2024 , Expires: 01/05/2025 Start: 10-06-2024 End: 01-05-2025 PROTEIN S CLOTTABLE PROTEIN S CLOTTABLE Lab Routine Acute pulmonary embolism, unspecified pulmonary embolism type, unspecified whether acute cor pulmonale present (HCC) Family history of DVT Expected: 10/06/2024, Expires: 01/05/2025 [facility] Comment on above: Expected: 10/06/2024 , Expires: 01/05/2025 Start: 10-06-2024 End: 01-05-2025 PT panel - Platelet poor plasma by Coagulation assay PROTHROMBIN TIME Lab Routine Acute pulmonary embolism, unspecified pulmonary embolism type, unspecified whether acute cor pulmonale present (HCC) Family history of DVT Expected: 10/06/2024, Expires: 01/05/2025 [facility] Work Phone: Comment on above: Expected: 10/06/2024 , Expires: 01/05/2025 Start: 09-16-2024 Patient discharge [facility] Start: 09-16-2024 Wound care [facility] Start: 09-16-2024 Oxygen therapy [facility] Start: 09-15-2024 Care planning and pr oblem solving actions [facility] Start: 09-15-2024 Following clinical pathway protocol [facility] Start: 09-15-2024 Ambulation without limitation [facility] Start: 09-15-2024 Assessment of risk o f venous thromboembolism [facility] Start: 09-15-2024 Consultation for treatment [facility] Start: 09-15-2024 Insertion of cathete r into peripheral vein [facility] Start: 09-15-2024 Providing care accor ding to standard [facility] Start: 09-15-2024 [facility] Start: 09-15-2024 Hospital admission, emergency, from emergency room, medical nature [facility] Start: 09-15-2024 Verification routine [facility] Start: 09-15-2024 Admission procedure [facility] Start: 09-15-2024 [facility] Start: 08-29-2024 End: 08-29-2024 Patient encounter procedure Podiatry Comment on above: follow up nail care follow up nail care ; patient had foot surgery on 08/13/2024 nails are accessible Start: 08-07-2024 End: 08-07-2024 Patient encounter procedure 08/07/2024 9:30 AM EST Appointment Mammogram [address] [place] [address] Mammogram Start: 08-06-2024 Screening for malign ant neoplasm of breast Mammogram Screening [facility] Start: 08-05-2024 End: 08-05-2024 Patient encounter procedure 08/05/2024 10:30 AM EST Office Visit Psychiatry [address] [place] [phone] Catarina Fitch, POWDER ROOM ATTENDANT.TWISTHAND [address] [facility] [place] [phone] 4-6 week follow up Psychiatry Comment on above: 4-6 week follow up Start: 07-28-2024 End: 10-27-2024 CBC W Auto Differential panel - Blood COMPLETE BLOOD COUNT AND DIFFERENTIAL Lab Routine Screening for deficiency anemia Expected: 07/28/2024, Expires: 10/27/2024 [facility] Comment on above: Expected: 07/28/2024 , Expires: 10/27/2024 Start: 07-28-2024 End: 10-27-2024 Comprehensive metabolic 2000 panel - Serum or Plasma COMPREHENSIVE METABOLIC PANEL Lab Routine Wellness examination Hypertension, essential Expected: 07/28/2024, Expires: 10/27/2024 [facility] Comment on above: Expected: 07/28/2024 , Expires: 10/27/2024 Start: 07-28-2024 End: 10-27-2024 Lipid 1996 panel - Serum or Plasma LIPID PANEL BASIC Lab Routine Lipid screening Expected: 07/28/2024, Expires: 10/27/2024 [facility] Comment on above: Expected: 07/28/2024 , Expires: 10/27/2024 Start: 07-28-2024 End: 10-27-2024 Thyrotropin [Units/volume] in Serum or Plasma THYROID STIMULATING HORMONE Lab Routine Acquired hypothyroidism Expected: 07/28/2024, Expires: 10/27/2024 [facility] Comment on above: Expected: 07/28/2024 , Expires: 10/27/2024 Start: 07-28-2024 End: 07-28-2024 Patient encounter procedure 07/28/2024 11:30 AM EST Office Visit [facility] [address] [place] [phone] Melissa Lopes MD [address] [place], [place] [phone] medicare wellness [facility] Comment on above: medicare wellness Start: 07-21-2024 End: 07-21-2024 Patient encounter procedure 07/21/2024 8:00 AM EST Office Visit [facility] [address] [place] [phone] Melissa Lopes MD [address] [place] [address] 6 Month Follow Up [facility] [place] Comment on above: 6 Month Follow Up Start: 07-18-2024 Annual PCP Team Rn International randal Disease Visit Annual PCP Team Chronic Disease Visit [facility] Start: 07-01-2024 End: 07-01-2024 Patient encounter procedure 07/01/2024 8:00 AM EST Office Visit [facility]iatry [address] [facility] [place] [phone] Catarina Fitch, POWDER ROOM ATTENDANT.TWISTHAND [address] [facility] [place] [phone] 2 month follow up Psychiatry Comment on above: 2 month follow up Start: 06-11-2024 Advance Directive Discussion Advance Directive Discussion [facility] Start: 06-02-2024 End: 06-02-2024 Patient encounter procedure 06/02/2024 1:15 PM EST Office Visit Podiatry [address] [place], [place] [id number] Dorys Jade [address] [place] [address] 3 month follow up nail care Podiatry Comment on above: 3 month follow up na il care Start: 04-29-2024 End: 04-29-2024 Patient encounter procedure Psychiatry Comment on above: follow up Start: 03-25-2024 End: 03-25-2024 Patient encounter procedure 03/25/2024 2:00 PM EDT Office Visit Psychiatry [address] [facility] [place] [phone] Catarina Fitch, POWDER ROOM ATTENDANT.TWISTHAND [address] [facility] [place] [phone] follow up Psychiatry Comment on above: follow up Start: 02-28-2024 End: 02-28-2024 Patient encounter procedure 02/28/2024 8:00 AM EDT Office Visit Podiatry [address] [place], [place] [id number] Dorys Jade [address] [place] [id number] 3 month follow up for nailcare Podiatry Comment on above: 3 month follow up fo r nailcare Start: 02-10-2024 Covid-19 Vaccine ( season) Covid-19 Vaccine ( season) [facility] Start: 02-10-2024 Covid-19 Vaccine () Covid-19 Vaccine () [facility] Start: 02-10-2024 Covid-19 Vaccine () Covid-19 Vaccine () [facility] Start: 02-10-2024 Influenza vaccination Influenza Vacc ine (#1) [facility] Start: 01-29-2024 End: 01-29-2024 Patient encounter procedure 01/29/2024 8:00 AM EDT Office Visit Psychiatry [address] [place] [phone] Catarina Fitch, POWDER ROOM ATTENDANT.TWISTHAND [address] [facility] [place] [phone] FOLLOW UP Psychiatry Comment on above: FOLLOW UP Start: 01-16-2024 End: 01-16-2024 Patient encounter procedure 01/16/2024 8:30 AM EDT [facility] [address] [place] [phone] Melissa Lopes MD [address] [place], [place] [address] 6 Month Follow Up [facility] Comment on above: 6 Month Follow Up Start: 11-27-2023 End: 11-27-2023 Patient encounter procedure 11/27/2023 8:15 AM EDT Office Visit Podiatry [address] [place] [address] Dorys Jade [address] [place] [address] 3 month follow up nail care Podiatry Comment on above: 3 month follow up na il care Start: 10-23-2023 End: 10-23-2023 Patient encounter procedure 10/23/2023 2:30 PM EDT Office Visit Psychiatry [address] [place] [phone] Catarina Fitch, POWDER ROOM ATTENDANT.TWISTHAND [address] [place] [phone] FOLLOW UP Psychiatry Comment on above: FOLLOW UP Start: 08-09-2023 Covid-19 Vaccine () Covid-19 Vaccine () [facility] Start: 07-26-2023 Mammography [facility] Start: 07-26-2023 Screening for malign ant neoplasm of breast Mammogram Screening [facility] Start: 07-18-2023 End: 10-17-2023 CBC W Auto Differential panel - Blood CBC + DIFF Lab Routine Screening for deficiency anemia Expected: 07/18/2023, Expires: 10/17/2023 [facility] Work Phone: Comment on above: Expected: 07/18/2023 , Expires: 10/17/2023 Start: 07-18-2023 End: 10-17-2023 Comprehensive metabolic 2000 panel - Serum or Plasma COMP METABOLIC PANEL Lab Routine Wellness examination Expected: 07/18/2023, Expires: 10/17/2023 [facility] Work Phone: Comment on above: Expected: 07/18/2023 , Expires: 10/17/2023 Start: 07-18-2023 End: 10-17-2023 Lipid 1996 panel - Serum or Plasma LIPID PANEL BASIC Lab Routine Lipid screening Expected: 07/18/2023, Expires: 10/17/2023 [facility] Work Phone: Comment on above: Expected: 07/18/2023 , Expires: 10/17/2023 Start: 07-18-2023 End: 10-17-2023 Thyrotropin [Units/volume] in Serum or Plasma TSH BLD Lab Routine Acquired hypothyroidism Expected: 07/18/2023, Expires: 10/17/2023 [facility] Work Phone: Comment on above: Expected: 07/18/2023 , Expires: 10/17/2023 Start: 02-09-2023 Covid-19 Vaccine () Covid-19 Vaccine () [facility] Start: 02-09-2023 Influenza vaccination [facility] Start: 01-15-2023 End: 03-17-2023 Thyrotropin [Units/volume] in Serum or Plasma TSH BLD Lab Routine Acquired hypothyroidism Expected: 01/15/2023, Expires: 03/17/2023 [facility] Work Phone: Comment on above: Expected: 01/15/2023 , Expires: 03/17/2023 Start: 07-03-2022 End: 09-02-2022 CBC W Auto Differential panel - Blood CBC + DIFF Lab Routine Screening for deficiency anemia Expected: 07/03/2022, Expires: 09/02/2022 [facility] Work Phone: Comment on above: Expected: 07/03/2022 , Expires: 09/02/2022 Start: 07-03-2022 End: 09-02-2022 Comprehensive metabolic 2000 panel - Serum or Plasma COMP METABOLIC PANEL Lab Routine Wellness examination Expected: 07/03/2022, Expires: 09/02/2022 [facility] Work Phone: Comment on above: Expected: 07/03/2022 , Expires: 09/02/2022 Start: 07-03-2022 End: 09-02-2022 Lipid 1996 panel - Serum or Plasma LIPID PANEL BASIC Lab Routine Lipid screening Expected: 07/03/2022, Expires: 09/02/2022 [facility] Work Phone: Comment on above: Expected: 07/03/2022 , Expires: 09/02/2022 Start: 06-29-2022 COVID-19 VACCINE (6 - Moderna series) COVID-19 VACCINE (6 - Moderna series) [facility] Start: 06-11-2022 ADVANCE DIRECTIVE DISCUSSION ADVANCE DIRECTIVE DISCUSSION [facility] Start: 04-27-2022 COVID-19 VACCINE (5 - Booster for Moderna series) COVID-19 VACCINE (5 - Booster for Moderna series) [facility] Start: 02-19-2022 COVID-19 VACCINE (6 - Booster for Moderna series) COVID-19 VACCINE (6 - Booster for Moderna series) [facility] Start: 02-09-2022 Influenza vaccination C [facility] Start: 11-28-2021 Fluoroscopic guidance O.R. Fluoro fo r C-Arm [facility] Work Phone: Start: 11-28-2021 RF Less than 1 hour [facility] Work Phone: Start: 11-28-2021 X-ray of lumbar spin e, two or three views Lumbar Spine 2 or 3 Views [facility] Work Phone: Start: 11-28-2021 XR Lumbar spine 2 or 3 Views [facility] Work Phone: Start: 11-28-2021 Patient discharge [facility] Work Phone: Start: 09-29-2021 End: 09-29-2021 Patient encounter procedure Appointment [facility] Work Phone: Start: 07-26-2021 COVID-19 VACCINE (4 - Booster for Moderna series) COVID-19 VACCINE (4 - Booster for Moderna series) [facility] Start: 07-18-2021 COVID-19 VACCINE (4 - Booster for Moderna series) COVID-19 VACCINE (4 - Booster for Moderna series) [facility] Start: 06-11-2021 ADVANCE DIRECTIVE DISCUSSION ADVANCE DIRECTIVE DISCUSSION [facility] Start: 2014 BONE DENSITY BONE DENSITY [facility] Start: 2014 Bone Density Screening Bone Density Screening [facility] Start: 2014 PNEUMOCOCCAL: 65+ (1 - PCV) PNEUMOCOCCAL: 65+ (1 - PCV) [facility] Start: 2014 PNEUMOVAX AGE 65 AND OVER WITH 5YR LOOKBACK (#1) PNEUMOVAX AGE 65 AND OVER WITH 5YR LOOKBACK (#1) [facility] Start: 2014 Screening for osteoporosis Bone Density Screening [facility] Start: 2009 RSV Vaccine (1 - 1-d ose 60+ series) RSV Vaccine (1 - 1-dose 60+ series) [facility] Start: 09-08-2008 Colonoscopy COLONOSCOPY [facility] Start: 09-08-2008 COLORECTAL CANCER SCREENING COLORECTAL CANCER SCREENING [facility] Start: 1999 SHINGRIX VACCINE (1 of 2) LOWE GRIX VACCINE (1 of 2) [facility] Start: 1994 COLOGUARD (FIT-DNA) COLOGUARD (FIT-D NA) [facility] Start: [address] COLONOGRAPHY [facility] Start: 1994 DIABETES SCREEN DIABETES SCREEN [facility] Start: 1994 FECAL OCCULT BLOOD FECAL OCCULT BLOO D [facility] Start: 1994 LIPID SCREEN LIPID SCREEN [facility] Start: 1994 Screening for malign ant neoplasm of colon [facility] Start: 1994 SIGMOIDOSCOPY SIGMOIDOSCOPY [facility] Start: 1989 Mammography MAMMOGRAM [facility] Start: 1968 SHINGRIX VACCINE (1 of 2) LOWE GRIX VACCINE (1 of 2) [facility] Start: 1968 Urine microalbumin profile DTAP,TDAP,TD (1 - Tdap) [facility] Start: 1967 Anxiety Screening Anxiety Screening [facility] Start: 1967 BP Controlled (<130/80) BP Controlle d (<130/80) [facility] Start: 1967 HEPATITIS C SCREENING HEPATITIS C [facility] Start: 1967 Hepatitis C screening Hepatitis C [facility] Start: 1955 PNEUMOCOCCAL: 65+ (1 - PCV) PNEUMOCOCCAL: 65+ (1 - PCV) [facility] Cobalamin (Vitamin B 12) [Mass/volume] in Serum or Plasma [facility] End: 08-27-2025 DBT Breast - bilateral screening HEATHER SCREENING W MILI Radiology Routine Encounter for screening mammogram for breast cancer 1 Occurrences starting 07/28/2024 until 08/27/2025 [facility] Work Phone: Comment on above: 1 Occurrences starti ng 07/28/2024 until 08/27/2025 EMG(NEURO/NI) EMG(NEURO/NI) EM G Routine Paresthesia Ordered: 01/16/2024 [facility] Work Phone: Comment on above: Ordered: 01/16/2024 F5 gene mutations fo und [Identifier] in Blood or Tissue by Molecular genetics method Nominal [facility] Folic acid measureme nt, RBC [facility] Hemoglobin A1c/Hemoglobin.total in Blood [facility] End: 08-02-2023 HEATHER SCREENING HEATHER SCREENING Radiology Routine Encounter for screening mammogram for malignant neoplasm of breast 1 Occurrences starting 07/03/2022 until 08/02/2023 [facility] Work Phone: Comment on above: 1 Occurrences starti ng 07/03/2022 until 08/02/2023 End: 08-16-2024 HEATHER SCREENING HEATHER SCREENING Radiology Routine Encounter for screening mammogram for breast cancer 1 Occurrences starting 07/18/2023 until 08/16/2024 [facility] Work Phone: Comment on above: 1 Occurrences starti ng 07/18/2023 until 08/16/2024 MR Cervical spine [facility] MR Lumbar spine [facility] Patient referral [facility] Work Phone: Protein C [Units/vol ume] in Platelet poor plasma by Coagulation assay [facility] T4 free measurement [facility] Thiamine measurement [facility] Thyroid stimulating hormone measurement [facility] Troponin T.cardiac [Mass/volume] in Serum or Plasma by High sensitivity method [facility] End: 12-03-2025 US Lower extremity veins - bilateral US LEG VEIN DVT [facility] Lab Routine Acute pulmonary embolism, unspecified pulmonary embolism type, unspecified whether acute cor pulmonale present (HCC) Family history of DVT Elevated factor VIII level Closed fracture of right ankle, sequela Leg swelling 1 Occurrences starting 12/03/2024 until 12/03/2025 [facility] Work Phone: Comment on above: 1 Occurrences starti ng 12/03/2024 until 12/03/2025 Vitamin B6 measurement [facility] Vitamin D, 1,25-dihy droxy measurement [facility] Immunizations Immunization Date Immunization Notes Care Provider Alana [facility] 04-10-2024 pneumococcal conjuga te (PCV20) vaccine, 20 valent (PREVNAR 20) Melissa Lopes MD Work Phone: [facility] 04-09-2023 influenza (aIIV4) vaccine, age 65+ yr, quadrivalent, PF (FLUAD QUAD) Mammography Coordinator [facility] 04-09-2023 respiratory syncytia l virus (RSV) vaccine, bivalent (ABRYSVO) Mammography Coordinator [facility] 04-09-2023 influenza virus vaccine, unspecified formulation Ccf Provider [facility] 07-10-2022 pneumococcal (PCV20) vaccine, 20 valent (PREVNAR 20) Melissa Lopes MD Work Phone: [facility] 07-10-2022 tetanus toxoid, redu kayden diphtheria toxoid, and acellular pertussis vaccine, adsorbed Melissa Lopes MD Work Phone: [facility] 02-27-2022 influenza (aIIV4) vaccine, age 65+ yr, quadrivalent, PF (FLUAD QUAD) Melissa Lopes MD Work Phone: [facility] 02-27-2022 influenza virus vaccine, unspecified formulation Catarina Fitch APRN.CNP Work Phone: [facility] 12-25-2021 COVID-19 original vaccine, full dose, monovalent (MODERNA) Melissa Lopes MD Work Phone: [facility] 05-05-2021 Covid (Moderna) [facility] 04-25-2021 COVID-19 original vaccine, full dose, monovalent (MODERNA) Melissa Lopes MD Work Phone: [facility] 03-11-2021 Influenza virus vaccine W [facility] 03-11-2021 influenza, injectabl e, quadrivalent, preservative free Melissa Lopes MD Work Phone: [facility] 12-28-2020 zoster vaccine recombinant Melissa Lopes MD Work Phone: [facility] 10-21-2020 zoster vaccine recombinant Melissa Lopes MD Work Phone: [facility] 09-04-2020 Covid (Moderna) [facility] 09-02-2020 COVID-19 original vaccine, full dose, monovalent (MODERNA) Melissa Lopes MD Work Phone: [facility] 08-06-2020 Covid (Moderna) [facility] 08-05-2020 COVID-19 original vaccine, full dose, monovalent (MODERNA) Melissa Lopes MD Work Phone: [facility] 04-21-2020 influenza (HD-IIV4) vaccine, age 65+ yr, high dose, quadrivalent, PF (FLUZONE HIGH-DOSE) Melissa Lopes MD Work Phone: [facility] 05-06-2019 influenza, high dose seasonal, preservative-free Melissa Lopes MD Work Phone: [facility] 05-06-2019 pneumococcal polysaccharide vaccine, 23 valent Melissa Lopes MD Work Phone: [facility] 03-07-2018 AS03 adjuvant Melissa Lopes MD Work Phone: [facility] 03-06-2017 Influenza, injectabl e, Madin Vanesa Canine Kidney, preservative free, quadrivalent Melissa Lopes MD Work Phone: [facility] 02-20-2017 hepatitis A vaccine, adult dosage Melissa Lopes MD Work Phone: [facility] 07-05-2015 influenza, seasonal, injectable, preservative free Melissa Lopes MD Work Phone: [facility] 07-05-2015 pneumococcal conjuga te vaccine, 13 valent Melissa Lopes MD Work Phone: [facility] 02-02-2014 hepatitis A vaccine, adult dosage Melissa Lopes MD Work Phone: [facility] 02-02-2014 influenza, seasonal, injectable, preservative free Melissa Lopes MD Work Phone: [facility] 02-02-2014 tetanus toxoid, redu kayden diphtheria toxoid, and acellular pertussis vaccine, adsorbed Melissa Lopes MD Work Phone: [facility] 07-19-2009 novel [id number], preservative-free, injectable Melissa Lopes MD Work Phone: [facility] Payers Date Payer Category Payer Self-pay [id number] 2021 Medicare AETNA MEDICARE A ETNA MEDICARE PPO [id number] 2021-Present [phone] [address] [place] [address] PPO [id number] 2021 Medicare AETNA MEDICARE A ETNA MEDICARE PPO [id number] 2021-Present [phone] [address] [place] [address] PPO [id number] 2021 Medicare (Managed Care) [place] [id number] 2014 Private Health Insurance [id number] 1959 Medicare [id number] 1949 Unknown [id number] [id number]. 598 Unknown [id number] 2.16.840.1.648246.3.579.2. 462 Unknown [id number] 2.16.840.1.127436.3.579.2. 462 Unknown [id number] 2.16.840.1.258044.3.579.2. 462 Unknown [id number] 2.16.840.1.429321.3.579.2. 462 Unknown [id number] 2.16.840.1.490367.3.579.2. 462 Unknown [id number] 2.16.840.1.829500.3.579.2. 462 Unknown [id number] 2.16.840.1.538091.3.579.2. 462 Unknown [id number] 2.16.840.1.446330.3.579.2. 462 Unknown [id number] 2.16.840.1.071017.3.579.2. 462 Unknown [id number] 2.16.840.1.131368.3.579.2. 462 Unknown [id number] 2.16.840.1.591719.3.579.2. 462 Unknown [id number] 2.16.840.1.916015.3.579.2. 462 Unknown [id number] 2.16.840.1.073954.3.579.2. 462 Unknown [id number] 2.16.840.1.524169.3.579.2. 462 Unknown [id number] 2.16.840.1.129802.3.579.2. 462 Unknown [id number] 2.16.840.1.616406.3.579.2. 462 Unknown [id number] 2.16.840.1.477629.3.579.2. 462 Unknown [id number] 2.16.840.1.365091.3.579.2. 462 Unknown [id number] 2.16.840.1.484206.3.579.2. 462 Unknown [id number] 2.16.840.1.836727.3.579.2. 462 Unknown [id number] 2.16.840.1.549770.3.579.2. 462 Unknown [id number] 2.16.840.1.145839.3.579.2. 462 Unknown [id number] 2.16.840.1.299677.3.579.2. 462 Unknown [id number] 2.16.840.1.931310.3.579.2. 462 Unknown [id number] 2.16.840.1.231584.3.579.2. 462 Unknown [id number] 2.16.840.1.725287.3.579.2. 462 Social History Date Type Detail Facility Start: 11-21-2021 End: 07-28-2022 Assertion Unknown if ever smoked [facility] Work Phone: Start: 02-01-2016 End: 02-22-2022 Tobacco smoking status NHIS Never smoked tobacco [facility] Work Phone: Start: 09-21-2021 End: 12-03-2024 Alcohol intake Current drinker of alcohol (finding) [facility] Start: 02-01-2016 History SDOH Alcohol Comment Socially [facility] Start: 1950 Sex Assigned At Female [facility] Start: 09-11-2021 End: 04-26-2022 Exposure to SARS-CoV-2 (event) Not sure [facility] Work Phone: Start: 01-10-2019 Spouse/ Signif icant Other [facility] Start: 02-01-2016 End: 02-22-2022 Tobacco use and exposure Smokeless tobacco non-user [facility] Work Phone: Start: 02-22-2022 End: 07-03-2022 History SDOH Alcohol Frequency 2 [facility] Start: 02-22-2022 End: 07-03-2022 History SDOH Alcohol Std Drinks 1 [facility] Start: 02-22-2022 End: 07-03-2022 History SDOH Social Connections Phone 5 [facility] Start: 02-22-2022 End: 07-03-2022 History SDOH Social Connections Get Together 3 [facility] Start: 02-22-2022 End: 07-03-2022 History SDOH Social Connections Living 4 [facility] Start: 07-03-2022 Alcohol Comment occassionally [facility] Start: 07-03-2022 End: 10-18-2022 History of Social function [facility] Start: 07-03-2022 End: 10-18-2022 Social connection and isolation panel [facility] Do you belong to any clubs or organizations such as worship groups, unions, fraternal or athletic groups, or school groups? Yes [facility] Are you now , , , , never or living with a partner? [facility] How often to you hav e a drink containing alcohol? Monthly or less [facility] How many standard drinks containing alcohol do you have on a typical day? 1 or 2 [facility] How often do you hav e 6 or more drinks on 1 occasion? Less than monthly [facility] How hard is it for y ou to pay for the very basics like food, housing, medical care, and heating Not hard at all [facility] Do you feel stress - tense, restless, nervous, or anxious, or unable to sleep at night because your mind is troubled all the time - these days [OSQ] Only a little [facility] (I/We) worried wheth er (my/our) food would run out before (I/we) got money to buy more. Never true [facility] In the past 12 month s, was there a time when you were not able to pay the mortgage or rent on time? No [facility] Start: 09-13-2020 Sexual orientation Heterosexual (cristin meyers) [facility] How often to you hav e a drink containing alcohol? 2-4 times a month [facility] How often do you hav e 6 or more drinks on 1 occasion? Never [facility] Do you feel stress - tense, restless, nervous, or anxious, or unable to sleep at night because your mind is troubled all the time - these days [OSQ] Very much [facility] Do you feel stress - tense, restless, nervous, or anxious, or unable to sleep at night because your mind is troubled all the time - these days [OSQ] To some extent [facility] Start: 08-31-2024 End: 09-16-2024 Sex Female (finding) [facility] NEGATED: Highlighted rowStart: NINF History of tobacco use Passive smoker [facility] Medical Equipment Procedure Code Equipment Code Equipment Origin al Text Equipment Identifier Dates Insertion, spinal cord stimulator, permanent Battery [id number] FDA Start: 11-28-2021 Insertion, spinal cord stimulator, permanent TYRX ENVELOPE FDA Start: 11-28-2021 Insertion, spinal cord stimulator, permanent Vectris Lead KIt FDA Start: 11-28-2021 Insertion, spinal cord stimulator, permanent Vectris Lead Kit FDA Start: 11-28-2021 Insertion, spinal cord stimulator, permanent Battery [id number] FDA Start: 11-28-2021 Insertion, spinal cord stimulator, permanent TYRX ENVELOPE FDA Start: 11-28-2021 Insertion, spinal cord stimulator, permanent Vectris Lead KIt FDA Start: 11-28-2021 Insertion, spinal cord stimulator, permanent Vectris Lead Kit FDA Start: 11-28-2021 Insertion, spinal cord stimulator, permanent Battery [id number] FDA Start: 11-28-2021 Insertion, spinal cord stimulator, permanent TYRX ENVELOPE FDA Start: 11-28-2021 Insertion, spinal cord stimulator, permanent Vectris Lead KIt FDA Start: 11-28-2021 Insertion, spinal cord stimulator, permanent Vectris Lead Kit FDA Start: 11-28-2021 Insertion, spinal cord stimulator, permanent Battery [id number] FDA Start: 11-28-2021 Insertion, spinal cord stimulator, permanent TYRX ENVELOPE FDA Start: 11-28-2021 Insertion, spinal cord stimulator, permanent Vectris Lead KIt FDA Start: 11-28-2021 Insertion, spinal cord stimulator, permanent Vectris Lead Kit FDA Start: 11-28-2021 Insertion, spinal cord stimulator, permanent Battery [id number] FDA Start: 11-28-2021 Insertion, spinal cord stimulator, permanent TYRX ENVELOPE FDA Start: 11-28-2021 Insertion, spinal cord stimulator, permanent Vectris Lead KIt FDA Start: 11-28-2021 Insertion, spinal cord stimulator, permanent Vectris Lead Kit FDA Start: 11-28-2021 Insertion, spinal cord stimulator, permanent Battery [id number] FDA Start: 11-28-2021 Insertion, spinal cord stimulator, permanent TYRX ENVELOPE FDA Start: 11-28-2021 Insertion, spinal cord stimulator, permanent Vectris Lead KIt FDA Start: 11-28-2021 Insertion, spinal cord stimulator, permanent Vectris Lead Kit FDA Start: 11-28-2021 Insertion, spinal cord stimulator, permanent Battery [id number] FDA Start: 11-28-2021 Insertion, spinal cord stimulator, permanent TYRX ENVELOPE FDA Start: 11-28-2021 Insertion, spinal cord stimulator, permanent Vectris Lead KIt FDA Start: 11-28-2021 Insertion, spinal cord stimulator, permanent Vectris Lead Kit FDA Start: 11-28-2021 Insertion, spinal cord stimulator, permanent Battery [id number] FDA Start: 11-28-2021 Insertion, spinal cord stimulator, permanent TYRX ENVELOPE FDA Start: 11-28-2021 Insertion, spinal cord stimulator, permanent Vectris Lead KIt FDA Start: 11-28-2021 Insertion, spinal cord stimulator, permanent Vectris Lead Kit FDA Start: 11-28-2021 Insertion, spinal cord stimulator, permanent Battery [id number] FDA Start: 11-28-2021 Insertion, spinal cord stimulator, permanent TYRX ENVELOPE FDA Start: 11-28-2021 Insertion, spinal cord stimulator, permanent Vectris Lead KIt FDA Start: 11-28-2021 Insertion, spinal cord stimulator, permanent Vectris Lead Kit FDA Start: 11-28-2021 Insertion, spinal cord stimulator, permanent Battery [id number] FDA Start: 11-28-2021 Insertion, spinal cord stimulator, permanent TYRX ENVELOPE FDA Start: 11-28-2021 Insertion, spinal cord stimulator, permanent Vectris Lead KIt FDA Start: 11-28-2021 Insertion, spinal cord stimulator, permanent Vectris Lead Kit FDA Start: 11-28-2021 Insertion, spinal cord stimulator, permanent Battery [id number] FDA Start: 11-28-2021 Insertion, spinal cord stimulator, permanent TYRX ENVELOPE FDA Start: 11-28-2021 Insertion, spinal cord stimulator, permanent Vectris Lead KIt FDA Start: 11-28-2021 Insertion, spinal cord stimulator, permanent Vectris Lead Kit FDA Start: 11-28-2021 Insertion, spinal cord stimulator, permanent Battery [id number] FDA Start: 11-28-2021 Insertion, spinal cord stimulator, permanent TYRX ENVELOPE FDA Start: 11-28-2021 Insertion, spinal cord stimulator, permanent Vectris Lead KIt FDA Start: 11-28-2021 Insertion, spinal cord stimulator, permanent Vectris Lead Kit FDA Start: 11-28-2021 Insertion, spinal cord stimulator, permanent Battery [id number] FDA Start: 11-28-2021 Insertion, spinal cord stimulator, permanent TYRX ENVELOPE FDA Start: 11-28-2021 Insertion, spinal cord stimulator, permanent Vectris Lead KIt FDA Start: 11-28-2021 Insertion, spinal cord stimulator, permanent Vectris Lead Kit FDA Start: 11-28-2021 Insertion, spinal cord stimulator, permanent Battery [id number] FDA Start: 11-28-2021 Insertion, spinal cord stimulator, permanent TYRX ENVELOPE FDA Start: 11-28-2021 Insertion, spinal cord stimulator, permanent Vectris Lead KIt FDA Start: 11-28-2021 Insertion, spinal cord stimulator, permanent Vectris Lead Kit FDA Start: 11-28-2021 Goals Date Patient Goal Desired Activity /State Functional Status Date Assessment Result Facility 09-16-2024 Functional status Chair [facility] Work Phone: 07-28-2024 Total score [AUDIT-C] 1 07/28/19 25 11:25 AM Mario Ovalles LPN [facility] 07-28-2024 Humiliation, Afraid, Rape, and Kick questionnaire [HARK] [facility] Mental Status Date Assessment Result Facility 09-16-2024 Cognitive function Voice/Name [facility] Work Phone: 09-15-2024 Cognitive function Level Of Cons ciousness Awake;Alert;Appropriate;Follow s Commands [facility] Work Phone: 11-28-2021 Cognitive function Voice/Name [facility] Work Phone: Clinical Notes 09-21-2021 to 12-03-2024 Sea Chadwick DO - 12/03/2024 1:01 PM EDTTDorys eldridge - 12/01/2024 3:53 PM EDTBeatriz Wei RN - 12/01/2024 3:24 PM EDTTelephone Encounter - Autumn Dickens - 11/24/2024 12:35 PM EDT Note Date & Type Note Facility 12-03-2024 Note HNO ID: [id number] Author: SEA CHADWICK DO Service: ? 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 HPI: The patient is a 74-year-old female with a past medical history as outlined below. Had right ankle fusion surgery on 08/13/2024 at the [facility]. She was on low-dose, 81 mg aspirin twice daily since then when she presented to the ED. That morning she developed pain under her right breast. It was somewhat worse with breathing and hurt particularly with coughing. She had a nonproductive cough. Presented to [facility] ED 09/15/2024 for chest pain. CTA demonstrated a limited exam due to suboptimal opacification of the pulmonary arterial tree but she was identified to have right sided pulmonary emboli extending from the right mainstem bronchus (likely crap game box person error--personally reviewed CT images and there is clot visible within the right main pulmonary artery) into the upper lobe branches appearing occlusive in these locations. Nonocclusive and occlusive pulmonary bullae were also observed in the right lower lobar pulmonary artery and extending into segmental subsegmental branches. Report simply reads left sided pulmonary embolism allowing for limitations. There was an approximate 13 mm short axis subcarinal lymph node that was difficult to delineate from adjacent esophagus. I also note small pleural effusion on the right. No US legs. She had laboratory testing for hypercoagulable disorder. 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 This was performed at [facility] and their normal reference range was 57-163%. C-reactive protein was 6.44 mg/L. (Reference range 0 to 3.0 mg/L). An echocardiogram was performed on 09/16/2024. It demonstrated normal RV size and systolic function. The left ventricle was of normal size. There was mild concentric LVH. Estimated ejection fraction was 60%. No regional wall motion abnormalities. There was a small less than 1 cm pericardial effusion observed. No valvular abnormalities. Anticoagulated with apixaban. Chest pain resolved. No unusual bleeding. No chronic cough or wheezing. No dyspnea. Has IBS and is currently on Linzess. Many colonoscopies. Most recent 12/2023. Report reviewed. Most recent mammogram 07/2024. Breasts noted to be almost entirely fatty. Still in rigid boot right foot. Diagnosed with an undifferentiated CTD. Sees Dr. Miller at [facility]. On hydroxychloroquine. No history smoking. Mother and father were heavy smokers. PAST MEDICAL HISTORY Diagnosis Date Hypothyroidism PMH - PAST MEDICAL HISTORY OF tension headaches PMH - PAST MEDICAL HISTORY OF tension in shoulders PMH - PAST MEDICAL HISTORY OF pancreatitis PMH - PAST MEDICAL HISTORY OF ibs PMH - PAST MEDICAL HISTORY OF chronic epigastric pain PMH - PAST MEDICAL HISTORY OF reset broken nose PMH - PAST MEDICAL HISTORY OF arthritis PMH - PAST MEDICAL HISTORY OF depression Seasonal allergies PAST SURGICAL HISTORY Procedure Laterality Date ANKLE SURGERY HX Right 08/13/2024 FUSED 3 JOINTS ARTHRP KNE CONDYLEANDPLATU MEDIALANDLAT COMPARTMENTS Knee replacement, total, both knee's PAST SURGICAL HISTORY OF cholecystecomy PAST SURGICAL HISTORY OF stent in sphincter of ode PAST SURGICAL HISTORY OF tubal ligation PAST SURGICAL HISTORY OF right foot bunion surgery LINZESS 72 mcg capsule Take 1 capsule by mouth once daily. DULoxetine (CYMBALTA) 60 mg capsule TAKE 1 CAPSULE ONCE DAILY psyllium Husk 0.52 gram capsule 0.52 g. SANTYL ointment apixaban (ELIQUIS) 5 mg tab(s) Take 1 tablet by mouth two times a day. brexpiprazole (REXULTI) 2 mg tablet Take 1 tablet by mouth once daily. valsartan (DIOVAN) 160 mg tablet Take 1 tablet by mouth two times a day. levothyroxine (SYNTHROID) 100 mcg tablet Take 1 tablet by mouth once daily. clonazePAM (KLONOPIN) 0.5 mg tablet Take 1 tablet by mouth at bedtime as needed for anxiety (and sleep difficulties) for up to 30 days. omeprazole (PRILOSEC) 20 mg capsule Take 20 mg by mouth once daily. dicyclomine (BENTYL) 10 mg capsule three times a day. mdycht-diujpnrd-pgzzmtb (CREON) 36,000-114,000- 180,000 unit delayed release capsule Take by mouth three times daily with meals. hydrOXYchloroQUINE (PLAQUENIL) 200 mg tablet once daily. cholecalciferol (VITAMIN D3) 400 unit tab once daily. multivitamin tablet Take 1 tablet by mouth once daily. acetaminophen (TYLENOL) 500 mg tablet Take by mouth every 8 hours as needed. gabapentin (NEURONTIN) 300 mg capsule Take 400 mg by mouth three times daily. ALLERGIES Allergen Reactions [place] Other: See Comments Soap Rash With Ann Marie and Tide specifically. Social History Tobacco Use Smoking status: Never Passive exposure: Never Smokeless tobacco: Never Vaping Use Vaping status: Never Used Substance Use Topi (more content not included)... [facility] 12-03-2024 History of Presen t illness Narrative Patient referred by Dr. 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 HPI: The patient is a 74-year-old female with a past medical history as outlined below. Had right ankle fusion surgery on 08/13/2024 at the [facility]. She was on low-dose, 81 mg aspirin twice daily since then when she presented to the ED. That morning she developed pain under her right breast. It was somewhat worse with breathing and hurt particularly with coughing. She had a nonproductive cough. Presented to [facility] ED 09/15/2024 for chest pain. CTA demonstrated a limited exam due to suboptimal opacification of the pulmonary arterial tree but she was identified to have right sided pulmonary emboli extending from the right mainstem bronchus (likely crap game box person error--personally reviewed CT images and there is clot visible within the right main pulmonary artery) into the upper lobe branches appearing occlusive in these locations. Nonocclusive and occlusive pulmonary bullae were also observed in the right lower lobar pulmonary artery and extending into segmental subsegmental branches. Report simply reads left sided pulmonary embolism allowing for limitations. There was an approximate 13 mm short axis subcarinal lymph node that was difficult to delineate from adjacent esophagus. I also note small pleural effusion on the right. No US legs. She had laboratory testing for hypercoagulable disorder. 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 This was performed at [facility] and their normal reference range was 57-163%. C-reactive protein was 6.44 mg/L. (Reference range 0 to 3.0 mg/L). An echocardiogram was performed on 09/16/2024. It demonstrated normal RV size and systolic function. The left ventricle was of normal size. There was mild concentric LVH. Estimated ejection fraction was 60%. No regional wall motion abnormalities. There was a small less than 1 cm pericardial effusion observed. No valvular abnormalities. Anticoagulated with apixaban. Chest pain resolved. No unusual bleeding. No chronic cough or wheezing. No dyspnea. Has IBS and is currently on Linzess. Many colonoscopies. Most recent 12/2023. Report reviewed. Most recent mammogram 07/2024. Breasts noted to be almost entirely fatty. Still in rigid boot right foot. Diagnosed with an undifferentiated CTD. Sees Dr. Miller at [facility]. On hydroxychloroquine. No history smoking. Mother and father were heavy smokers. PAST MEDICAL HISTORY Diagnosis Date Hypothyroidism PMH - PAST MEDICAL HISTORY OF tension headaches PMH - PAST MEDICAL HISTORY OF tension in shoulders PMH - PAST MEDICAL HISTORY OF pancreatitis PMH - PAST MEDICAL HISTORY OF ibs PMH - PAST MEDICAL HISTORY OF chronic epigastric pain PMH - PAST MEDICAL HISTORY OF reset broken nose PMH - PAST MEDICAL HISTORY OF arthritis PMH - PAST MEDICAL HISTORY OF depression Seasonal allergies PAST SURGICAL HISTORY Procedure Laterality Date ANKLE SURGERY HX Right 08/13/2024 FUSED 3 JOINTS ARTHRP KNE CONDYLE&PLATU MEDIAL&LAT COMPARTMENTS Knee replacement, total, both knee's PAST SURGICAL HISTORY OF cholecystecomy PAST SURGICAL HISTORY OF stent in sphincter of ode PAST SURGICAL HISTORY OF tubal ligation PAST SURGICAL HISTORY OF right foot bunion surgery LINZESS 72 mcg capsule Take 1 capsule by mouth once daily. DULoxetine (CYMBALTA) 60 mg capsule TAKE 1 CAPSULE ONCE DAILY psyllium Husk 0.52 gram capsule 0.52 g. SANTYL ointment apixaban (ELIQUIS) 5 mg tab(s) Take 1 tablet by mouth two times a day. brexpiprazole (REXULTI) 2 mg tablet Take 1 tablet by mouth once daily. valsartan (DIOVAN) 160 mg tablet Take 1 tablet by mouth two times a day. levothyroxine (SYNTHROID) 100 mcg tablet Take 1 tablet by mouth once daily. clonazePAM (KLONOPIN) 0.5 mg tablet Take 1 tablet by mouth at bedtime as needed for anxiety (and sleep difficulties) for up to 30 days. omeprazole (PRILOSEC) 20 mg capsule Take 20 mg by mouth once daily. dicyclomine (BENTYL) 10 mg capsule three times a day. fqlgnb-zwdimofd-ubadjph (CREON) 36,000-114,000- 180,000 unit delayed release capsule Take by mouth three times daily with meals. hydrOXYchloroQUINE (PLAQUENIL) 200 mg tablet once daily. cholecalciferol (VITAMIN D3) 400 unit tab once daily. multivitamin tablet Take 1 tablet by mouth once daily. acetaminophen (TYLENOL) 500 mg tablet Take by mouth every 8 hours as needed. gabapentin (NEURONTIN) 300 mg capsule Take 400 mg by mouth three times daily. ALLERGIES Allergen Reactions [place] Other: See Comments Soap Rash With Ann Marie and Tide specifically. Social History Tobacco Use Smoking status: Never Passive exposure: Never Smokeless tobacco: Never Vaping Use Vaping status: Never Used Substance Use Topics Alcohol use: Yes Comment: occassionally Drug use: Never FAMILY HISTORY Problem Relation Age of Onset Cancer Mother lung related to smoking None Father unknown GI Brother gallbladder removed GI Brother other brother on disability unknown why Cancer Brother Testicular Thyroid Maternal Grandmother Diabetes Maternal Uncle Diabetes Maternal Uncle REVIEW OF SYSTEMS: Constitutional: No episodes of fever and night sweats. Not significantly fatigued. Normal appetite. Neuro: No JOSEPH, vertigo, dizziness and imbalance. No symptoms of neuropathy. HEENT: No recent change in voice, vision or hearing. Resp: No cough, wheeze and hemoptysis. No shortness of breath at rest. No MENDOZA. CVS: No exertional chest pain, PND, orthopnea and LE edema. GI: No altered taste or symptoms of stomatitis. No dysphagia and odynophagia. No reflux, n/v, change in bowel habits or abdominal pain. : No dysuria or gross hematuria. No symptoms of bladder outlet obstruction. Endo: No hot flashes. No polyuria and polydipsia. No heat and cold intolerance. Musculoskeletal: No bone, back, joint and muscular pain. Derm: No current rash. No history of jaundice or diffuse pruritis. Heme: No unusual bleeding and unexplained bruising. Psych: Normal mood. PHYSICAL EXAM: Vitals: Blood pressure 114/68, pulse (!) 53, temperature 36.9 C (98.5 F), temperature source Temporal, height 158 cm (5' 2.21), weight 103 kg (227 lb), SpO2 97%. Well-appearing and in no acute distress. EYES: Sclerae are anicteric bilaterally. LYMPHATIC: There is no palpable adenopathy. CARDIOVASCULAR: Rhythm is regular. ABDOMEN: The abdomen is nondistended. No splenomegaly or hepatomegaly. No tenderness. Extremities: No swelling or edema. SKIN: No jaundice or rash. No petechiae. 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 Developed PE approximately 1 month after undergoing ankle surgery. She did not have duplex ultrasound of the legs when she was in the hospital. Factor VIII elevated but likely due to chronic inflammation as evidenced by the elevated CRP. I discussed with her completing a minimum of 6 months worth of anticoagulation since this is a provoked pulmonary embolism. Also discussed obtaining ultrasound of her legs to assess for potential chronic DVT. I would recommend that her PCP obtain follow-up CT chest approximately 3 months from her initial to reassess pleural effusion and the subcarinal lymph node. Plan: - Duplex ultrasound both legs. - Follow-up in March. At that time can decide whether or not appropriate to stop anticoagulation since rehabilitation from ankle surgery has been rather protracted. Would consider checking D-dimer and repeating factor VIII and CRP at that time. - I would request that Dr. Lopes order follow-up CT chest in December. I spent a total of 60 minutes on the date of the service which included preparing to see the patient (reviewing labs and CT images and hospital course in the [facility] electronic record), [id number] patient care, completing clinical documentation, obtaining and/or reviewing separately obtained history, performing a medically appropriate examination, counseling and educating the patient/family/caregiver, ordering medications, tests, or procedures, communicating with other HCPs (not separately reported), and communicating results to the patient/family/caregiver. Sea Chadwick DO documented in this encounter [facility] 12-01-2024 History of Presen t illness Narrative Subjective: Patient presents to clinic c/o painful toenails. They state that the nails are especially painful with shoe gear and pressure. Patient states that nails 1 b/l are painful. No other pedal complaints at this time. Patient states no change in medications or medical history since last visit. Objective: Patient presents to clinic ambulating in boot right and sneakers left Vasc: DP and PT pulses are palpable bilateral. CFT is less than 5 seconds bilateral. Skin temperature is warm to cool proximal to distal bilateral. There is mild edema or varicosities noted. Neuro: Protective sensation is intact to the foot and toes when tested with the 5.07 SWM bilateral. Vibratory sensation is decreased at the hallux IPJ bilateral. The hallux is downgoing bilateral. Derm: Nails 1-5 b/l are painful, incurvated, discolored-yellow, thick, crumbly, dystrophic and with subungal debris. Skin is of normal turgor, texture and hair growth is present bilateral. There are no hyperkeratosis, ulcerations, scars, verruca or other lesions noted. Assessment: (B35.1) Onychomycosis (primary encounter diagnosis) (M79.675) Pain in toe of left foot (M79.674) Pain in toe of right foot Plan: Patient was seen and evaluated. Nails 1-5 bilateral were debrided in length and thickness. Patient is to RTC in 3-4 months. Dorys Jade DPM Patient presents with: Left Foot - Established Patient, Follow Up, nail care Right Foot - Established Patient, Follow Up, nail care Patient presents for 3 month follow up nail care. Patient had right ankle surgery 08/13/24 (3 ankle joints fused and tendons tightened). Wearing tall pneumatic boot to the right foot. Still has some swelling to the foot, will be starting outpatient PT soon for it. Ambulatory with walker. [facility] 08/29/24 documented in this encounter [facility] 12-01-2024 Note HNO ID: [id number] Author: DORYS JADE, ? Service: ? Author Type: Physician Type: Progress Notes Filed: 12/02/2024 08:03 Note Text: Subjective: Patient presents to clinic c/o painful toenails. They state that the nails are especially painful with shoe gear and pressure. Patient states that nails 1 b/l are painful. No other pedal complaints at this time. Patient states no change in medications or medical history since last visit. Objective: Patient presents to clinic ambulating in boot right and sneakers left Vasc: DP and PT pulses are palpable bilateral. CFT is less than 5 seconds bilateral. Skin temperature is warm to cool proximal to distal bilateral. There is mild edema or varicosities noted. Neuro: Protective sensation is intact to the foot and toes when tested with the 5.07 SWM bilateral. Vibratory sensation is decreased at the hallux IPJ bilateral. The hallux is downgoing bilateral. Derm: Nails 1-5 b/l are painful, incurvated, discolored-yellow, thick, crumbly, dystrophic and with subungal debris. Skin is of normal turgor, texture and hair growth is present bilateral. There are no hyperkeratosis, ulcerations, scars, verruca or other lesions noted. Assessment: (B35.1) Onychomycosis (primary encounter diagnosis) (M79.675) Pain in toe of left foot (M79.674) Pain in toe of right foot Plan: Patient was seen and evaluated. Nails 1-5 bilateral were debrided in length and thickness. Patient is to RTC in 3-4 months. Dorys Jade DPM [facility] 12-01-2024 Note HNO ID: [id number] Author: BEATRIZ WEI RN Service: ? Author Type: Registered Nurse Type: Progress Notes Filed: 12/02/2024 08:03 Note Text: Patient presents with: Left Foot - Established Patient, Follow Up, nail care Right Foot - Established Patient, Follow Up, nail care Patient presents for 3 month follow up nail care. Patient had right ankle surgery 08/13/24 (3 ankle joints fused and tendons tightened). Wearing tall pneumatic boot to the right foot. Still has some swelling to the foot, will be starting outpatient PT soon for it. Ambulatory with walker. MALISSA 08/29/24 [facility] 11-24-2024 Telephone encounter Note Last: 08/05/24 TREATMENT PLAN: Increase Rexulti to 2 mg to address depressive symptoms. Consider increasing the Buspar if patient continues to experience feelings of anxiety even after the increase in Rexulti dose. Continue Cymbalta at the same dose to address anxiety symptoms. Do not take clonazepam if prescribed opioid pain medications after surgery. Continue individual psychotherapy with current provider. Follow up in 3 months or sooner if needed Next: 12/23/24 [facility] 11-24-2024 Miscellaneous Notes Last: 08/05/24 TREATMENT PLAN: Increase Rexulti to 2 mg to address depressive symptoms. Consider increasing the Buspar if patient continues to experience feelings of anxiety even after the increase in Rexulti dose. Continue Cymbalta at the same dose to address anxiety symptoms. Do not take clonazepam if prescribed opioid pain medications after surgery. Continue individual psychotherapy with current provider. Follow up in 3 months or sooner if needed Next: 12/23/24 documented in this encounter [facility] 11-14-2024 Telephone encounter Note No call back number listed unable to contact Mario Frye LPN November 14, 2024 11:57 AM [facility] 11-14-2024 Miscellaneous Notes No call back number listed unable to contact Mario Frye LPN November 14, 2024 11:57 AM Home Health called requesting 1x order for home health visit next week for patient discharge. documented in this encounter [facility] 11-13-2024 Telephone encounter Note Home Health called requesting 1x order for home health visit next week for patient discharge. [facility] Work Phone: 11-10-2024 Telephone encounter Note Message left for patient to phone office at earliest convenience in regards to results. Alberto Maki LPN November 10, 2024 10:51 AM [facility] 11-10-2024 Miscellaneous Notes Message left for patient to phone office at earliest convenience in regards to results. Alberto Maki LPN November 10, 2024 10:51 AM ----- Message from Melissa Lopes MD sent at 11/10/2024 10:37 AM EDT ----- Factor VIII activity elevated. Continue anticoagulation. Consult to hematology documented in this encounter [facility] 11-10-2024 Telephone encounter Note ----- Message from Melissa Lopes MD sent at 11/10/2024 10:37 AM EDT ----- Factor VIII activity elevated. Continue anticoagulation. Consult to hematology [facility] 10-29-2024 Radiology Diagnostic study note [facility] Imaging Services [address] [place], [place] [id number] Abdomen Single View MR#: [id number] Acct: [id number] Name: ABEL LYLES Rep #: [id number] : 1950 F 74 From: Lluvia Hernandez MD PCP: Dr. Melissa Lopes MD Status: REG CLI Study:Abdomen Single View Date of Exam: 10/29/24 Exam# [id number] Ordering Dr: Lillie Wu EXAM: XR Abdomen, 1 View CLINICAL INDICATION: CONSTIPATION TECHNIQUE: Frontal supine view of the abdomen/pelvis. COMPARISON: No relevant prior studies available. FINDINGS: GASTROINTESTINAL TRACT: Fecal retention in the colon consistent with constipation. No dilation. BONES/JOINTS: Bilateral hip replacement. No acute fracture. TUBES, LINES AND DEVICES: Right-sided lower neurostimulator. RAD/Abdomen Single View IMPRESSION: Fecal retention in the colon consistent with constipation. Reading Location: [facility] CC: Dr. Melissa Lopes MD; RICARDO Gaspar ~ Tax Professional: Signed [facility] 10-29-2024 Progress note [facility] 10-21-2024 Telephone encount er Note Home health informed this nurse that patient was unable to have labs drawn at home, due to type of labs. This nurse phoned patient, patient stated she already had labs completed at [facility] This nurse phoned [facility] and they stated that rest of labs should be done by end of this week, due to being sent to [facility] Fry[facility] L[facility] October 21, 2024 1:02 PM [facility] 10-21-2024 Miscellaneous Notes Formattin g of this note might be different from the original. [facility] informed this nurse that patient was unable to have labs drawn at home, due to type of labs. This nurse phoned patient, patient stated she already had labs completed at [facility] This nurse phoned [facility] and they stated that rest of labs should be done by end of this week, due to being sent to [facility] Mario Frye LPN October 21, 2024 1:02 PM documented in this encounter [facility] 10-20-2024 Telephone encount er Note This nurse spoke with home health, due to not being able to get ahold of patient. Lab orders sent to [facility] Mario Frye LPN October 20, 2024 4:37 PM [facility] 10-20-2024 Miscellaneous Notes Formattin g of this note might be different from the original. This nurse spoke with home health, due to not being able to get ahold of patient. Lab orders sent to [facility] Mario Frye LPN October 20, 2024 4:37 PM Message left for patient to phone office at earliest convenience in regards to orders. Mario Frye LPN October 17, 2024 9:02 AM Home health nurse phoned office. This nurse attempted to reach patient in regards to new lab orders Message left for patient to phone office Mario Frye LPN October 16, 2024 8:35 AM documented in this encounter [facility] 10-17-2024 Telephone encount er Note Message left for patient to phone office at earliest convenience in regards to orders. Mario Frye LPN October 17, 2024 9:02 AM [facility] 10-16-2024 Telephone encount er Note Home health nurse phoned office. This nurse attempted to reach patient in regards to new lab orders Message left for patient to phone office Mario Frye LPN October 16, 2024 8:35 AM [facility] 10-09-2024 Note HNO ID: [id number] Author: MELISSA LOPES MD Service: ? Author Type: Physician Type: Progress Notes Filed: 10/09/2024 13:25 Note Text: Annelise Astudillo is a 74-year-old female presenting for follow-up after a recent PE. Pulmonary Embolism: - Recent PE in the right upper lobe, diagnosed after foot surgery. - Initially on anticoagulation in the hospital, but was discontinued upon discharge. - Experienced symptoms two weeks post-discharge, including increased temperature, tachycardia, worsened pain, and SpO2 dropping to 80%. - Currently on Eliquis since 08/30, with 5 refills remaining. - First occurrence of a blood clot. - Family history of PE; sister from a blood clot in the lung, also had phlebitis. - Recent echocardiogram showed an ejection fraction of 60%. - Has undergone multiple surgeries in the past without similar complications. Review of Systems GENERAL: No weight loss, generalized discomfort, or fevers. HEENT: Negative for frequent or significant headaches, no changes in vision or hearing, no nose bleeds or other nasal problems. NECK: Negative for lumps, goiter, pain, or significant neck swelling. RESPIRATORY: Negative for cough, dyspnea, or shortness of breath. CARDIOVASCULAR: Negative for chest pain, leg swelling, congestive heart failure, or palpitations. GI: No nausea, vomiting, diarrhea, heartburn, abdominal pain, blood in stool, or black stool. GENITOURINARY: Negative for dysuria, urinary frequency, or incontinence. MUSCULOSKELETAL: Negative for joint pain or swelling, or muscle pain. No back pain. SKIN: Negative for lesions, rash, and itching. PSYCH: Negative for anxiety or depression. HEMATOLOGY/LYMPHOLOGY: No current bleeding concerns. NEURO: No history of headaches, syncope, paralysis, seizures, or tremors. ENDOCRINE: No history of polydipsia or other endocrine symptoms. PAST SURGICAL HISTORY Procedure Laterality Date ANKLE SURGERY HX Right 08/13/2024 FUSED 3 JOINTS ARTHRP KNE CONDYLEANDPLATU MEDIALANDLAT COMPARTMENTS Knee replacement, total, both knee's PAST SURGICAL HISTORY OF cholecystecomy PAST SURGICAL HISTORY OF stent in sphincter of ode PAST SURGICAL HISTORY OF tubal ligation PAST SURGICAL HISTORY OF right foot bunion surgery PAST MEDICAL HISTORY Diagnosis Date Hypothyroidism PMH - PAST MEDICAL HISTORY OF tension headaches PMH - PAST MEDICAL HISTORY OF tension in shoulders PMH - PAST MEDICAL HISTORY OF pancreatitis PMH - PAST MEDICAL HISTORY OF ibs PMH - PAST MEDICAL HISTORY OF chronic epigastric pain PMH - PAST MEDICAL HISTORY OF reset broken nose PMH - PAST MEDICAL HISTORY OF arthritis PMH - PAST MEDICAL HISTORY OF depression Seasonal allergies FAMILY HISTORY Problem Relation Age of Onset Cancer Mother lung related to smoking None Father unknown GI Brother gallbladder removed GI Brother other brother on disability unknown why Cancer Brother Testicular Thyroid Maternal Grandmother Diabetes Maternal Uncle Diabetes Maternal Uncle Social History Tobacco Use Smoking status: Never Passive exposure: Never Smokeless tobacco: Never Vaping Use Vaping status: Never Used Substance Use Topics Alcohol use: Yes Comment: occassionally Drug use: Never ALLERGIES Allergen Reactions Soap Rash With Ann Marie and Tide specifically. MEDICATIONS: psyllium Husk 0.52 gram capsule 0.52 g. SANTYL ointment apixaban (ELIQUIS) 5 mg tab(s) Take 1 tablet by mouth two times a day. brexpiprazole (REXULTI) 2 mg tablet Take 1 tablet by mouth once daily. busPIRone (BUSPAR) 7.5 mg tablet Take 1.5 tablets by mouth two times a day. DULoxetine (CYMBALTA) 60 mg capsule Take 1 capsule by mouth once daily. valsartan (DIOVAN) 160 mg tablet Take 1 tablet by mouth two times a day. levothyroxine (SYNTHROID) 100 mcg tablet Take 1 tablet by mouth once daily. clonazePAM (KLONOPIN) 0.5 mg tablet Take 1 tablet by mouth at bedtime as needed for anxiety (and sleep difficulties) for up to 30 days. omeprazole (PRILOSEC) 20 mg capsule Take 20 mg by mouth once daily. dicyclomine (BENTYL) 10 mg capsule three times a day. zjwejq-btujurig-jhsgvyp (CREON) 36,000-114,000- 180,000 unit delayed release capsule Take by mouth three times daily with meals. hydrOXYchloroQUINE (PLAQUENIL) 200 mg tablet once daily. cholecalciferol (VITAMIN D3) 400 unit tab once daily. multivitamin tablet Take 1 tablet by mouth once daily. acetaminophen (TYLENOL) 500 mg tablet Take by mouth every 8 hours as needed. gabapentin (NEURONTIN) 300 mg capsule Take 400 mg by mouth three times daily. Allergies, past surgical history, family history and past medical history were reviewed per this encounter. Medications were reviewed and verified. 09/23/2024 09/29/2024 INTAKE PAIN ASSESSMENT Are you having pain associated with your visit today? No No If pain assessment is 0, no action needed. If pain assessment is positive, ple (more content not included)... [facility] 10-09-2024 History of Presen t illness Narrative Annelise Astudillo is a 74-year-old female presenting for follow-up after a recent PE. Pulmonary Embolism: - Recent PE in the right upper lobe, diagnosed after foot surgery. - Initially on anticoagulation in the hospital, but was discontinued upon discharge. - Experienced symptoms two weeks post-discharge, including increased temperature, tachycardia, worsened pain, and SpO2 dropping to 80%. - Currently on Eliquis since 08/30, with 5 refills remaining. - First occurrence of a blood clot. - Family history of PE; sister from a blood clot in the lung, also had phlebitis. - Recent echocardiogram showed an ejection fraction of 60%. - Has undergone multiple surgeries in the past without similar complications. Review of Systems GENERAL: No weight loss, generalized discomfort, or fevers. HEENT: Negative for frequent or significant headaches, no changes in vision or hearing, no nose bleeds or other nasal problems. NECK: Negative for lumps, goiter, pain, or significant neck swelling. RESPIRATORY: Negative for cough, dyspnea, or shortness of breath. CARDIOVASCULAR: Negative for chest pain, leg swelling, congestive heart failure, or palpitations. GI: No nausea, vomiting, diarrhea, heartburn, abdominal pain, blood in stool, or black stool. GENITOURINARY: Negative for dysuria, urinary frequency, or incontinence. MUSCULOSKELETAL: Negative for joint pain or swelling, or muscle pain. No back pain. SKIN: Negative for lesions, rash, and itching. PSYCH: Negative for anxiety or depression. HEMATOLOGY/LYMPHOLOGY: No current bleeding concerns. NEURO: No history of headaches, syncope, paralysis, seizures, or tremors. ENDOCRINE: No history of polydipsia or other endocrine symptoms. PAST SURGICAL HISTORY Procedure Laterality Date ANKLE SURGERY HX Right 08/13/2024 FUSED 3 JOINTS ARTHRP KNE CONDYLE&PLATU MEDIAL&LAT COMPARTMENTS Knee replacement, total, both knee's PAST SURGICAL HISTORY OF cholecystecomy PAST SURGICAL HISTORY OF stent in sphincter of ode PAST SURGICAL HISTORY OF tubal ligation PAST SURGICAL HISTORY OF right foot bunion surgery PAST MEDICAL HISTORY Diagnosis Date Hypothyroidism PMH - PAST MEDICAL HISTORY OF tension headaches PMH - PAST MEDICAL HISTORY OF tension in shoulders PMH - PAST MEDICAL HISTORY OF pancreatitis PMH - PAST MEDICAL HISTORY OF ibs PMH - PAST MEDICAL HISTORY OF chronic epigastric pain PMH - PAST MEDICAL HISTORY OF reset broken nose PMH - PAST MEDICAL HISTORY OF arthritis PMH - PAST MEDICAL HISTORY OF depression Seasonal allergies FAMILY HISTORY Problem Relation Age of Onset Cancer Mother lung related to smoking None Father unknown GI Brother gallbladder removed GI Brother other brother on disability unknown why Cancer Brother Testicular Thyroid Maternal Grandmother Diabetes Maternal Uncle Diabetes Maternal Uncle Social History Tobacco Use Smoking status: Never Passive exposure: Never Smokeless tobacco: Never Vaping Use Vaping status: Never Used Substance Use Topics Alcohol use: Yes Comment: occassionally Drug use: Never ALLERGIES Allergen Reactions Soap Rash With Ann Marie and Tide specifically. MEDICATIONS: psyllium Husk 0.52 gram capsule 0.52 g. SANTYL ointment apixaban (ELIQUIS) 5 mg tab(s) Take 1 tablet by mouth two times a day. brexpiprazole (REXULTI) 2 mg tablet Take 1 tablet by mouth once daily. busPIRone (BUSPAR) 7.5 mg tablet Take 1.5 tablets by mouth two times a day. DULoxetine (CYMBALTA) 60 mg capsule Take 1 capsule by mouth once daily. valsartan (DIOVAN) 160 mg tablet Take 1 tablet by mouth two times a day. levothyroxine (SYNTHROID) 100 mcg tablet Take 1 tablet by mouth once daily. clonazePAM (KLONOPIN) 0.5 mg tablet Take 1 tablet by mouth at bedtime as needed for anxiety (and sleep difficulties) for up to 30 days. omeprazole (PRILOSEC) 20 mg capsule Take 20 mg by mouth once daily. dicyclomine (BENTYL) 10 mg capsule three times a day. otnhld-tiukkjvv-ixbnqqz (CREON) 36,000-114,000- 180,000 unit delayed release capsule Take by mouth three times daily with meals. hydrOXYchloroQUINE (PLAQUENIL) 200 mg tablet once daily. cholecalciferol (VITAMIN D3) 400 unit tab once daily. multivitamin tablet Take 1 tablet by mouth once daily. acetaminophen (TYLENOL) 500 mg tablet Take by mouth every 8 hours as needed. gabapentin (NEURONTIN) 300 mg capsule Take 400 mg by mouth three times daily. Allergies, past surgical history, family history and past medical history were reviewed per this encounter. Medications were reviewed and verified. 09/23/2024 09/29/2024 INTAKE PAIN ASSESSMENT Are you having pain associated with your visit today? No No If pain assessment is 0, no action needed. If pain assessment is positive, please see assessment and plain. Objective Imaging: - CT Chest: Large pulmonary embolus in the right upper lobe and right lower lobe - Echocardiogram: - No acute cor pulmonale - Ejection fraction: 60% BP 126/70 Pulse (!) 52 Temp 36.8 C (98.2 F) (Temporal) Resp 20 SpO2 98% Physical Exam GENERAL: NAD, alert and oriented SKIN: unremarkable, no rash or skin lesions. HEAD: normocephalic EYES: PERRLA, EOMI, conjunctiva clear EARS: external ears normal, canals clear, TM's normal. NOSE/SINUSES: Nares normal. Septum midline. OROPHARYNX: lips, mucosa, and tongue normal, good dentition. No oral lesions noted. NECK: Supple, no lymphadenopathy, normal thyroid, no carotid bruits. LUNGS: Clear to auscultation bilaterally, no wheezes/rhonchi/rales. HEART: Regular rate and rhythm, no murmurs. No ectopy. EXTREMITIES: Normal, No deformities, No skin discoloration, No edema. NEURO: Awake, alert and oriented x3, cranial nerves II-XII grossly intact, normal gait, no involuntary motions Procedures Assessment and Plan 1. Acute pulmonary embolism, unspecified pulmonary embolism type, unspecified whether acute cor pulmonale present (HCC) (I26.99) - Recent hospitalization for a large PE in the right upper and lower lobes; no evidence of acute cor pulmonale. - Currently on Eliquis since , with 5 refills available. - Continue Eliquis for 6 months. - Echocardiogram showed an ejection fraction of 60%. - No further imaging required post-treatment. - Ordered hypercoagulable panel to rule out underlying clotting disorders; patient informed that results may take time. - Follow-up appointment scheduled for January 26. 2. Family history of DVT (Z82.49) - Sister had a PE. - Discussed potential genetic predisposition to clotting disorders. - Patient understands the importance of completing the hypercoagulable panel. Melissa Lopes MD 10/06/2024 Recording using [employer] software for draft documentation of the visit was discussed with the patient/authorized leather goods sales representative; all questions welcomed and answered. Patient/authorized leather goods sales representative agreed to proceed PATIENT IS HERE FOR A HOSPITAL FOLLOW-UP FOR A BLOOD CLOT IN HER UPPER RIGHT LOBE. Jean Marie Guzman LPN October 06, 2024 2:08 PM documented in this encounter [facility] 10-06-2024 Note HNO ID: [id number] Author: JEAN MARIE GUZMAN LPN Service: ? Author Type: LICENSED NURSE Type: Progress Notes Filed: 10/06/2024 14:08 Note Text: PATIENT IS HERE FOR A HOSPITAL FOLLOW-UP FOR A BLOOD CLOT IN HER UPPER RIGHT LOBE. Jean Marie Guzman LPN October 06, 2024 2:[address] [facility] 09-29-2024 Telephone encount er Note Last Office Visit: 07-28-2024 Next Scheduled Office Visit: 10-06-2024 - [place] Patient needs refill of Eliquis before scheduled visit. Patient was in the hospital when she received this order Requested Prescriptions Pending Prescriptions Disp Refills apixaban (ELIQUIS) 5 mg (74 tabs) 74 tablet 0 Sig: Take 2 tablets (10 mg) by mouth twice daily for 7 days. Then take 1 tablet (5 mg) by mouth twice daily for 23 days Mario Frye LPN September 29, 2024 3:17 PM [facility] 09-29-2024 Miscellaneous Notes Formattin g of this note is different from the original. Last Office Visit: 07-28-2024 Next Scheduled Office Visit: 10-06-2024 - [place] Patient needs refill of Eliquis before scheduled visit. Patient was in the hospital when she received this order Requested Prescriptions Pending Prescriptions Disp Refills apixaban (ELIQUIS) 5 mg (74 tabs) 74 tablet 0 Sig: Take 2 tablets (10 mg) by mouth twice daily for 7 days. Then take 1 tablet (5 mg) by mouth twice daily for 23 days Mario Frye LPN September 29, 2024 3:17 PM documented in this encounter [facility] 09-26-2024 Telephone encount er Note Message left for patient to cut rexulti 2 mg tab in half, may need to get a pill cutter from the pharmacy to make this easier. Can call office with any other questions or concerns. Fatuma Jewell LPN [facility] 09-26-2024 Miscellaneous Notes Formattin g of this note might be different from the original. Message left for patient to cut rexulti 2 mg tab in half, may need to get a pill cutter from the pharmacy to make this easier. Can call office with any other questions or concerns. Fatuma Jewell LPN Reviewed patient's concern regarding noting tremors in hand. At the last visit in July, we had increased the Rexulti to 2 mg. Please ask the patient to cut the Rexulti tablet in half and take only 1 mg instead of 2 mg. Please let me know if she has any questions. Call received from patient stating, the tremors in hands are getting worse. Started several months ago, but is now bothersome. I feel it's from my medicine. Please advise. Fatuma Jewell LPN documented in this encounter [facility] 09-26-2024 Telephone encount er Note Reviewed patient's concern regarding noting tremors in hand. At the last visit in July, we had increased the Rexulti to 2 mg. Please ask the patient to cut the Rexulti tablet in half and take only 1 mg instead of 2 mg. Please let me know if she has any questions. [facility] 09-26-2024 Telephone encount er Note Call received from patient stating, the tremors in hands are getting worse. Started several months ago, but is now bothersome. I feel it's from my medicine. Please advise. Fatuma Jewell LPN [facility] 09-24-2024 Telephone encount er Note OT phoned office in regards to elevated BP during visit. BP= 206/81, recheck 185/74, recheck 169/72 Patient had no symptoms during all encounters Mario Frye LPN September 24, 2024 2:48 PM [facility] 09-24-2024 Miscellaneous Notes Formattin g of this note might be different from the original. OT phoned office in regards to elevated BP during visit. BP= 206/81, recheck 185/74, recheck 169/72 Patient had no symptoms during all encounters Mario Frye LPN September 24, 2024 2:48 PM documented in this encounter [facility] 09-17-2024 Telephone encount er Note Bobbi from [facility] phoned office to inform patient was in hospital for a PE and discharged on Eliquis. There is an interaction with Meloxicam, Dr. Lopes told this nurse verbally that patient is to stop Meloxicam. This nurse informed Home Health Nurse Mario Frye LPN September 17, 2024 1:52 PM [facility] 09-17-2024 Miscellaneous Notes Formattin g of this note might be different from the original. Bobbi from [facility] phoned office to inform patient was in hospital for a PE and discharged on Eliquis. There is an interaction with Meloxicam, Dr. Lopes told this nurse verbally that patient is to stop Meloxicam. This nurse informed Home Health Nurse Mario Frye LPN September 17, 2024 1:52 PM documented in this encounter [facility] 09-16-2024 Discharge summary Note Date/Time September 16, 2024 3:24pm [facility] Medical Records Department [address] [place] [address] Discharge Summary 09/16/24 1518 MR#: [id number] Acct: [id number] Name: ABEL LYLES Rep #:[id number] : 1950 74 From: José Miguel Carlson DO PCP: Dr. Melissa Lopes MD Status:ADM DARRYL Location: [place] [address] Providers Date of Admission: 09/15/24 Primary Care Physician: Dr. 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 on apixaban troponins negative Echo shows EF 60% with normal RV size. Pt with MENDOZA, which I explained to her would be expected given the large PE, but reassured that this will improve overtime. I anticipate 6 months of treatment. Though with her family history it may be prudent to check a hypercoagulable workup once she has completed anticoagulation. This was likely provoked given her recent ankle surgery. She was on ASA 81 BID and compliant, but clearly ineffective for preventing this. Plan Chronic conditions: * HTN: losartan * hypothyoidism: levothyroxine * Recent ankle surgery: follow up with ortho/podiatry and plastic for the poorly healing wound. VTE prophylaxis: not indicated as already on apixaban. Medications at Discharge Home Medications duloxetine 60 mg capsule,delayed release 60 mg PO QHS 07/29/18 hydroxychloroquine 200 mg tablet (Plaquenil) 200 mg PO QHS arthritis 07/29/18 levothyroxine 100 mcg tablet (Synthroid) 100 mcg PO DAILY 07/29/18 buspirone 7.5 mg tablet 11.25 mg PO BID 11/28/21 dicyclomine 10 mg capsule 10 mg PO TID #90 caps 03/19/24 acetaminophen 500 mg capsule 500 mg PO Q8 PRN fever or pain 05/12/24 cholecalciferol (vitamin D3) 10 mcg (400 unit) capsule 10 mcg PO QDAY 05/12/24 clonazepam 0.5 mg tablet 0.5 mg PO QHS 05/12/24 multivitamin 1 tab PO QDAY 05/12/24 mbbalw-bvyxrcqt-hkaaftc 36,000-114,000-180,000 unit capsule,delay rel (Creon) See Rx Instructions PO .COMPLEX #320 caps 05/22/24 omeprazole 20 mg capsule,delayed release 20 mg PO DAILY #30 caps 07/01/24 valsartan 160 mg tablet 160 mg PO BID #180 tabs 09/03/24 brexpiprazole 2 mg tablet (Rexulti) 2 mg PO DAILY 09/15/24 cephalexin 500 mg capsule 500 mg PO Q6H 09/15/24 gabapentin 300 mg capsule 300 mg PO TID 09/15/24 oxycodone 5 mg tablet 5 mg PO Q6H PRN pain 09/15/24 psyllium husk 0.52 gram capsule (Daily Fiber) 0.52 g PO DAILY 09/15/24 apixaban 5 mg (74 tabs) tablets in a dose pack See Rx Instructions PO .COMPLEX #74 tabs 09/16/24 Hospital Course Procedures 2-D Echocardiogram Summary of Care Provided Minutes Spent on Discharge: 40 Hospital Course: Patient presents with shortness of breath. CTA of her chest showed a central right upper and lower lobe occlusive and nonocclusive pulmonary emboli. Patientalso noted to have a right lower lobe possible developing pulmonary infarct. Patient had normal troponins and had no RV strain on CAT scan. Echocardiogram performed today showed normal LV size. Patient is short of breath with exertion. I explained to her that is a to be expected given her pulmonary embolism. Expressed that with time that that should resolve and her breathing will get better. This pulmonary embolism was likely provoked given her recent ankle surgery though she was taking aspirin 81 twice daily for that. Aspirin will be discontinued and patient will continue with 6 months of apixaban. Though its likely provoked PE she may have a predisposition as she has a family member, her sister, who from a pulmonary embolism. Perhaps a hypercoagulable workup would be advised when she has completed anticoagulation. Weight / BMI Weight Weight: 99 kg Body Mass Index (BMI) 38.6 ABG / Lab / Microbiology Data 09/16/24 07:02 09/16/24 07:02 Laboratory: Laboratory Results - last 24 hr 09/15/24 15:06: Troponin T Hi Sens 4Hr 12 09/16/24 07:02: WBC 12.0 H, RBC 4.09 L, Hgb 11.6 L, Hct 35.6 L, MCV 87.0, MCH 28.4, MCHC 32.6, RDW Std Deviation 47.9 H, RDW Coeff of Mikel 14.8 H, Plt Count 259, MPV 11.6, Immature Gran % (Auto) 0.300, Neut % (Auto) 66.9, Lymph % (Auto) 23.3, [place] % (Auto) 8.5, Eos % (Auto) 0.8, Baso % (Auto) 0.2, Absolute Neuts (auto) 8.0 H, Absolute Lymphs (auto) 2.79, Nucleated RBC % 0, Sodium 134, Potassium 4.9, Chloride 100, Carbon Dioxide 20.3 L, Anion Gap 14, BUN 18, Creatinine 1.01, Estim Creat Clear Calc 53.97, Est GFR (MDRD) Non-Af 58 L, BUN/Creatinine Ratio 17.3, Glucose 114 H, Calcium 8.9 ABG: ABG 09/15/24 23:39 Specimen Type ART Sample Site L Radial pH 7.56 H Bicarbonate Actual 35.7 H Total CO2 37 Base Excess 13 H O2 Saturation 98 O2 % 3.0 ABG pCO2 40.2 ABG pO2 90 Bing Test Positive O2 Delivery Device Cannula Vent Mode Not entered Radiography Diagnostic Testing: Radiology Impression Echocardiogram 09/16/24 09:06 Interpretation Summary Normal LV size. Left ventricular systolic function is normal. The left ventricular ejection fraction is 60 %. Small (<1.0 cm) pericardial effusion. Normal RV size. Mild concentric left ventricular hypertrophy. Ordering Physician: José Miguel Carlson Referring Physician: Melissa Lopes Performed By: Kat Hernandez, NANNETTE, RVT D/C Instructions Discharge Diet: No restrictions DC O2, CPAP, BIPAP Needs Home O2 Discharge instructions: No Meaningful Use Info Meaningful Use Meaningful Use Diagnoses (Choose all that apply): None applicable Ischemic Stroke Statin Dosing Therapy Reference: STATIN DOSE THERAPY REFERENCE: * Patients > 75 years receive moderate or high dose statin therapy. * Patients 75 years or YOUNGER should receive HIGH intensity statin dose unless contraindicated. You will be required to document reason for non-treatment if statin daily dose does not meet guidelines. HIGH DOSE STATIN THERAPY DAILY Atorvastatin > than or = to 40 mg Rosuvastatin > than or = to 20 mg Amlodipine + Atorvastatin > than or = to 2.5/40 mg Ezetimibe + Simvastatin 10/80 mg Simvastatin 80mg Discharge Plan Admission Admit Date/Time: 09/15/24 14:48 Primary Reason for Your Visit: Pulmonary embolism Attending Provider: José Miguel Carlson Primary Care Provider: Melissa Lopes Consulting Providers: Stanislav Akers Additional Instructions / Restrictions: With your pulmonary embolism, it will be expected that you will be short of breath with exertion. If that does get worse, notify your physician or return to the emergency room. The treatment for your pulmonary embolism is 6 months ofanticoagulation. That anticoagulation will be apixaban (Eliquis). Please follow-up with your surgeons as previously scheduled. Discharge Orders/Prescriptions Prescriptions: New apixaban 5 mg (74 tabs) tablets,dose pack See Rx Instructions .ROUTE .COMPLEX Qty: 74 0RF Rx Instructions: orally per package directions Continued multivitamin Tablet 1 tab PO QDAY clonazepam 0.5 mg tablet 0.5 mg PO QHS Rx Instructions: administer 30 minutes before bedtime acetaminophen 500 mg capsule 500 mg PO Q8 PRN (Reason: fever or pain) cholecalciferol (vitamin D3) 10 mcg (400 unit) capsule 10 mcg PO QDAY levothyroxine [Synthroid] 100 MCG tablet 100 mcg PO DAILY hydroxychloroquine [Plaquenil] 200 MG tablet 200 mg PO QHS duloxetine 60 MG capsule 60 mg PO QHS buspirone 7.5 mg Tablet 11.25 mg PO BID Rexulti 2 mg tablet 2 mg PO DAILY psyllium husk [Daily Fiber] 0.52 gram capsule 0.52 g PO DAILY cephalexin 500 mg capsule 500 mg PO Q6H oxycodone 5 mg tablet 5 mg PO Q6H PRN (Reason: pain) gabapentin 300 mg capsule 300 mg PO TID dicyclomine 10 mg capsule 10 mg PO TID Qty: 90 0RF Creon 36,000-114,000- 180,000 unit capsule,delayed release(/EC) See Rx Instructions PO .COMPLEX Qty: 320 5RF Rx Instructions: take 1-2 with snacks and 2-3 with meals K86.81 omeprazole 20 mg capsule,delayed release(DR/EC) 20 mg PO DAILY Qty: 30 3RF valsartan 160 mg tablet 160 mg PO BID Qty: 180 3RF Discontinued meloxicam 15 mg tablet 15 mg PO DAILY aspirin [Adult Low Dose Aspirin] 81 mg tablet,delayed release (DR/EC) 81 mg PO BID Referrals / Follow Up: Melissa Lopes MD [Primary Care Provider] - Within 2 Weeks Disposition Disposition (needs filled in before D/C Order can be placed): Home, Self Care Charges/Coding Visit Charges Inpatient E&M: 58281 Disch Hosp >30min 09/16/24 1524 <Electronically signed by José Miguel Carlson DO> Cosigner Signature (if applicable): CC: Dr. José Miguel Carlson DO; Dr. Melissa Lopes MD~ Signed [facility] Work Phone: 1(965) 647-734104-08-2025 Progress note Author [facility] Note Date/Time September 16, 2024 3:18 pm [facility] Medical Records Department [address] [place] [address] Progress Note - Hospitalist 09/16/24 0901 MR#: [id number] Acct: [id number] Name: ABEL LYLES Rep #:[id number] : 1950 74 From: José Miguel Carlson DO PCP: Dr. Melissa Lopes MD Status:ADM DARRYL Location: [place] [address] Reason for Visit Reason for Visit: Diagnoses Other pulmonary embolism without acute cor pulmonale (09/15/24) Subjective Subjective Still with MENDOZA. Limited mobility given recent ankle surgery on the right. Objective Data Objective Data Vital Signs: Vital Signs Temp Pulse Resp BP Pulse Ox O2 Del Method O2 Flow Rate 36.5 C L 56 L 14 142/53 H 100 Nasal Cannula 2 09/16/24 08:00 09/16/24 08:00 09/16/24 08:00 09/16/24 08:00 09/16/24 08:00 09/16/24 08:00 09/16/24 08:00 Oxygen Flow Rate (L/min) 2 Oxygen Delivery Method Nasal Cannula Weight: 99 kg Body Mass Index (BMI) 38.6 Lab / Micro Data 09/16/24 07:02 09/16/24 07:02 Labs: Laboratory Results - last 24 hr 09/15/24 11:22: WBC 16.1 H, RBC 4.43, Hgb 12.5, Hct 38.9, MCV 87.8, MCH 28.2, MCHC 32.1, RDW Std Deviation 47.3 H, RDW Coeff of Mikel 14.6, Plt Count 240, MPV 10.9, Immature Gran % (Auto) 0.400, Neut % (Auto) 75.0 H, Lymph % (Auto) 15.7 L,Lajas % (Auto) 6.5, Eos % (Auto) 2.1, Baso % (Auto) 0.3, Absolute Neuts (auto) 12.1 H, Absolute Lymphs (auto) 2.52, Nucleated RBC % 0, PT 12.9, INR 1.0, APTT 24.8, Sodium 139, Potassium 4.1, Chloride 105, Carbon Dioxide 23.3, Anion Gap 11, BUN 16, Creatinine 0.83, Estim Creat Clear Calc 66.83, Est GFR (MDRD) Non-Af74, BUN/Creatinine Ratio 19.5, Glucose 112 H, Calcium 9.2, Troponin T High Sens 14, NT pro BNP II 101 09/15/24 13:19: Troponin T Hi Sens 2 Hr 13 09/15/24 15:06: Troponin T Hi Sens 4Hr 12 09/16/24 07:02: WBC 12.0 H, RBC 4.09 L, Hgb 11.6 L, Hct 35.6 L, MCV 87.0, MCH 28.4, MCHC 32.6, RDW Std Deviation 47.9 H, RDW Coeff of Mikel 14.8 H, Plt Count 259, MPV 11.6, Immature Gran % (Auto) 0.300, Neut % (Auto) 66.9, Lymph % (Auto) 23.3, Lajas % (Auto) 8.5, Eos % (Auto) 0.8, Baso % (Auto) 0.2, Absolute Neuts (auto) 8.0 H, Absolute Lymphs (auto) 2.79, Nucleated RBC % 0, Sodium 134, Potassium 4.9, Chloride 100, Carbon Dioxide 20.3 L, Anion Gap 14, BUN 18, Creatinine 1.01, Estim Creat Clear Calc 53.97, Est GFR (MDRD) Non-Af 58 L, BUN/Creatinine Ratio 17.3, Glucose 114 H, Calcium 8.9 ABG Data ABG results: ABG 09/15/24 23:39 Specimen Type ART Sample Site L Radial pH 7.56 H Bicarbonate Actual 35.7 H Total CO2 37 Base Excess 13 H O2 Saturation 98 O2 % 3.0 ABG pCO2 40.2 ABG pO2 90 Bing Test Positive O2 Delivery Device Cannula Vent Mode Not entered Radiography Diagnostic Testing: Radiology Impression Chest CTA 09/15/24 11:05 IMPRESSION: 1. Central RIGHT upper and lower lobe occlusive and nonocclusive pulmonary emboli as detailed. No definite central or definite LEFT-sided pulmonary embolism allowing for limitations. 2. Mild focal ground-glass in the lateral RIGHT lower lobe could reflect a developing pulmonary infarct given the above. Pneumonia/pneumonitis is an additional consideration. 3. Mild mediastinal lymphadenopathy, nonspecific and potentially reactive in theabsence of known malignancy. Correlate with medical history and follow-up as indicated. 4. Cholecystectomy with dilatation of the CBD which may be related to post cholecystectomy effect. Correlate with serum bilirubin and consider outpatient MRCP as indicated. 5. Tiny 8 mm peripherally calcified distal splenic artery aneurysm. 6. Additional description as above. IMPRESSION: [place] Alert: Impression #1 and #2 The critical information above was relayed directly by me by telephone to Mariana Clemons on 09/15/2024 at 11:36 am MST with readback verification. Reading Location: [facility] Rhythm Strip Rhythm Strip: Sinus Rhythm Rate: 65 Ectopy: None Physical Exam Const alert Constitutional Narrative: up in chair. no respiratory distress. no conversational dyspnea. Extremity Extremity Narrative: right LE edema. Neuro Sensorium / Orientation: awake and alert Assessment & Plan Assessment/Plan (1) Pulmonary embolism: PLAN: Large Right upper and lower lobe occlusive and nonocclusive PE. on apixaban troponins negative Echo shows EF 60% with normal RV size. Pt with MENDOZA, which I explained to her would be expected given the large PE, but reassured that this will improve overtime. I anticipate 6 months of treatment. Though with her family history it may be prudent to check a hypercoagulable workup once she has completed anticoagulation. This was likely provoked given her recent ankle surgery. She was on ASA 81 BID and compliant, but clearly ineffective for preventing this. PLAN: Plan Chronic conditions: * HTN: losartan * hypothyoidism: levothyroxine * Recent ankle surgery: follow up with ortho/podiatry and plastic for the poorly healing wound. VTE prophylaxis: not indicated as already on apixaban. 09/16/24 1518 <Electronically signed by José Miguel Carlson DO> Cosigner Signature (if applicable): CC: ~ Signed [facility] Work Phone: 1(608) 867-534704-08-2025 Consult note [facility] Medical Records Department [address] [place] [address] Counseling Note - Pharmacy 09/16/24 2093 MR#: [id number] Acct: [id number] Name: ABEL LYLES Rep #:[id number] : 1950 74 From: Michael Hu PCP: Dr. Melissa Lopes MD Status:ADM DARRYL Y Location: [place] [address] Pharmacy [facility] has performed discharge medication reconciliation and counseling for this patient. The patient's discharge medication list was reviewed for discrepancies and discrepancies were resolved. The patient was counseled on the following discharge medications and changes in medications for homegoing were reviewed. The Reason for Use, instructions for use, and potential side effects were reviewed for all new medications. The patient's questions regarding all of their medications were answered. 1. Apixaban 10 mg PO BID x 7 days, followed by 5 mg PO BID The patient was able to verbally demonstrate an understanding of their dischargemedications. Medications at Discharge Home Medications duloxetine 60 mg capsule,delayed release 60 mg PO QHS depression 07/29/18 hydroxychloroquine 200 mg tablet (Plaquenil) 200 mg PO QHS arthritis 07/29/18 levothyroxine 100 mcg tablet (Synthroid) 100 mcg PO DAILY thyroid 07/29/18 buspirone 7.5 mg tablet 11.25 mg PO BID Depression 11/28/21 dicyclomine 10 mg capsule 10 mg PO TID #90 caps 03/19/24 acetaminophen 500 mg capsule 500 mg PO Q8 PRN fever or pain 05/12/24 cholecalciferol (vitamin D3) 10 mcg (400 unit) capsule 10 mcg PO QDAY [id number]/02/24 clonazepam 0.5 mg tablet 0.5 mg PO QHS sleep 05/12/24 multivitamin 1 tab PO QDAY supplement 05/12/24 [id number] 36,000-114,000-180,000 unit capsule,delay rel (Creon) See Rx Instructions PO .COMPLEX supplement #320 caps 05/22/24 omeprazole 20 mg capsule,delayed release 20 mg PO DAILY indigestion #30 caps 07/01/24 valsartan 160 mg tablet 160 mg PO BID blood pressure #180 tabs 09/03/24 brexpiprazole 2 mg tablet (Rexulti) 2 mg PO DAILY depression 09/15/24 cephalexin 500 mg capsule 500 mg PO Q6H 09/15/24 gabapentin 300 mg capsule 300 mg PO TID nerve pain 09/15/24 oxycodone 5 mg tablet 5 mg PO Q6H PRN pain 09/15/24 psyllium husk 0.52 gram capsule (Daily Fiber) 0.52 g PO DAILY supplement 09/15/24 apixaban 5 mg (74 tabs) tablets in a dose pack See Rx Instructions PO .COMPLEX #74 tabs 09/16/24 09/16/24 1658 r> Date _ Michael Epps Signature (if applicable): Date CC: ~ Signed [facility]04-08-2025 Discharge summary [facility] Medical Records Department [address] [place] [address] Discharge Summary 09/16/24 1518 MR#: [id number] Acct: [id number] Name: ABEL LYLES Rep #:[id number] : 1950 74 From: José Miguel Carlson DO PCP: Dr. Melissa Lopes MD Status:ADM DARRYL [facility] Prov[facility] Date of Admission: 09/15/24 Primary Care Physician: Dr. 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 on apixaban troponins negative Echo shows EF 60% with normal RV size. Pt with MENDOZA, which I explained to her would be expected given the large PE, but reassured that thiswill improve overtime. I anticipate 6 months of treatment. Though with her family history it may beprudent to check a hypercoagulable workup once she has completed anticoagulation. This was likely provoked given her recent ankle surgery. She was on ASA 81 BID and compliant, but clearly ineffective for preventing this. Plan Chronic conditions: * HTN: losartan * hypothyoidism: levothyroxine * Recent ankle surgery: follow up with ortho/podiatry and plastic for the poorly healing wound. VTE prophylaxis: not indicated as already on apixaban. Medications at Discharge Home Medications duloxetine 60 mg capsule,delayed release 60 mg PO QHS 07/29/18 hydroxychloroquine 200 mg tablet (Plaquenil) 200 mg PO QHS arthritis 07/29/18 levothyroxine 100 mcg tablet (Synthroid) 100 mcg PO DAILY 07/29/18 buspirone 7.5 mg tablet 11.25 mg PO BID 11/28/21 dicyclomine 10 mg capsule 10 mg PO TID #90 caps 03/19/24 acetaminophen 500 mg capsule 500 mg PO Q8 PRN fever or pain 05/12/24 cholecalciferol (vitamin D3) 10 mcg (400 unit) capsule 10 mcg PO QDAY 05/12/24 clonazepam 0.5 mg tablet 0.5 mg PO QHS 05/12/24 multivitamin 1 tab PO QDAY 05/12/24 [id number] 36,000-114,000-180,000 unit capsule,delay rel (Creon) See Rx Instructions PO .COMPLEX #320 caps 05/22/24 omeprazole 20 mg capsule,delayed release 20 mg PO DAILY #30 caps 07/01/24 valsartan 160 mg tablet 160 mg PO BID #180 tabs 09/03/24 brexpiprazole 2 mg tablet (Rexulti) 2 mg PO DAILY 09/15/24 cephalexin 500 mg capsule 500 mg PO Q6H 09/15/24 gabapentin 300 mg capsule 300 mg PO TID 09/15/24 oxycodone 5 mg tablet 5 mg PO Q6H PRN pain 09/15/24 psyllium husk 0.52 gram capsule (Daily Fiber) 0.52 g PO DAILY 09/15/24 apixaban 5 mg (74 tabs) tablets in a dose pack See Rx Instructions PO .COMPLEX #74 tabs 09/16/24 Hospital Course Procedures 2-D Echocardiogram Summary of Care Provided Minutes Spent on Discharge: 40 Hospital Course: Patient presents with shortness of breath. CTA of her chest showed a central right upper and lower lobe occlusive and nonocclusive pulmonary emboli. Patientalso noted to have a right lower lobe possible developing pulmonary infarct. Patient had normal troponins and had no RV strain on CAT scan. Echo cardiogram performed today showed normal LV size. Patient is short of breath with exertion. I explained to her that is a to be expected given her pulmonary embolism. Expressed that with time that that should resolve and her breathing will get better. This pulmonary embolism was likely provoked given her recent ankle surgery though she was taking aspirin 81 twice daily for that. Aspirin will be discontinued and patient will continue with 6 months of apixaban. Though its likely provoked PE she may have a predisposition as she has a family member, her sister, who from a pulmonary embolism. Perhaps a hypercoagulable workup would be advised when she has completed anticoagulation. Weight / BMI Weight Weight: 99 kg Body Mass Index (BMI) 38.6 ABG / Lab / Microbiology Data 09/16/24 07:02 09/16/24 07:02 Laboratory: Laboratory Results - last 24 hr 09/15/24 15:06: Troponin T Hi Sens 4Hr 12 09/16/24 07:02: WBC 12.0 H, RBC 4.09 L, Hgb 11.6 L, Hct 35.6 L, MCV 87.0, MCH 28.4, MCHC 32.6, RDW Std Deviation 47.9 H, RDW Coeff of Mikel 14.8 H, Plt Count 259, MPV 11.6, Immature Gran % (Auto) 0.300, Neut % (Auto) 66.9, Lymph % (Auto) 23.3, Lajas % (Auto) 8.5, Eos % (Auto) 0.8, Baso % (Auto) 0.2, Absolute Neuts (auto) 8.0 H, Absolute Lymphs (auto) 2.79, Nucleated RBC % 0, Sodium 134, Potassium 4.9, Chloride 100, Carbon Dioxide 20.3 L, Anion Gap 14, BUN 18, Creatinine 1.01, Estim Creat Clear Calc 53.97, Est GFR (MDRD) Non-Af 58 L, BUN/Creatinine Ratio 17.3, Glucose 114 H, Calcium 8.9 ABG: ABG 09/15/24 23:39 Specimen Type ART Sample Site L Radial pH 7.56 H Bicarbonate Actual 35.7 H Total CO2 37 Base Excess 13 H O2 Saturation 98 O2 % 3.0 ABG pCO2 40.2 ABG pO2 90 Bing Test Positive O2 Delivery Device Cannula Vent Mode Not entered Radiography Diagnostic Testing: Radiology Impression Echocardiogram 09/16/24 09:06 Interpretation Summary Normal LV size. Left ventricular systolic function is normal. The left ventricular ejection fraction is 60 %. Small (<1.0 cm) pericardial effusion. Normal RV size. Mild concentric left ventricular hypertrophy. Ordering Physician: José Miguel Carlson Referring Physician: Melissa Lopes Performed By: Kat Hernandez, NANNETTE, RVT D/C Instructions Discharge Diet: No restrictions DC O2, CPAP, BIPAP Needs Home O2 Discharge instructions: No Meaningful Use Info Meaningful Use Meaningful Use Diagnoses (Choose all that apply): None applicable Ischemic Stroke Statin Dosing Therapy Reference: STATIN DOSE THERAPY REFERENCE: * Patients > 75 years receive moderate or high dose statin therapy. * Patients 75 years or YOUNGER should receive HIGH intensity statin dose unless contraindicated. You will be required to document reason for non-treatment if statin daily dose does not meet guidelines. HIGH DOSE STATIN THERAPY DAILY Atorvastatin > than or = to 40 mg Rosuvastatin > than or = to 20 mg Amlodipine + Atorvastatin > than or = to 2.5/40 mg Ezetimibe + Simvastatin 10/80 mg Simvastatin 80mg Discharge Plan Admission Admit Date/Time: 09/15/24 14:48 Primary Reason for Your Visit: Pulmonary embolism Attending Provider: José Miguel Carlson Primary Care Provider: Melissa Lopes Consulting Providers: Stanislav Akers Instructions Additional Instructions / Restrictions: With your pulmonary embolism, it will be expected that you will be short of breath with exertion. If that does get worse, notify your physician or return to the emergency room. The treatment for yourpulmonary embolism is 6 months ofanticoagulation. That anticoagulation will be apixaban (Eliquis). Please follow-up with your surgeons as previously scheduled. Discharge Orders/Prescriptions Prescriptions: New apixaban 5 mg (74 tabs) tablets,dose pack See Rx Instructions .ROUTE .COMPLEX Qty: 74 0RF Rx Instructions: orally per package directions Continued multivitamin Tablet 1 tab PO QDAY clonazepam 0.5 mg tablet 0.5 mg PO QHS Rx Instructions: administer 30 minutes before bedtime acetaminophen 500 mg capsule 500 mg PO Q8 PRN (Reason: fever or pain) cholecalciferol (vitamin D3) 10 mcg (400 unit) capsule 10 mcg PO QDAY levothyroxine [Synthroid] 100 MCG tablet 100 mcg PO DAILY hydroxychloroquine [Plaquenil] 200 MG tablet 200 mg PO QHS duloxetine 60 MG capsule 60 mg PO QHS buspirone 7.5 mg Tablet 11.25 mg PO BID Rexulti 2 mg tablet 2 mg PO DAILY psyllium husk [Daily Fiber] 0.52 gram capsule 0.52 g PO DAILY cephalexin 500 mg capsule 500 mg PO Q6H oxycodone 5 mg tablet 5 mg PO Q6H PRN (Reason: pain) gabapentin 300 mg capsule 300 mg PO TID dicyclomine 10 mg capsule 10 mg PO TID Qty: 90 0RF Creon 36,000-114,000- 180,000 unit capsule,delayed release(DR/EC) See Rx Instructions PO .COMPLEX Qty: 320 5RF Rx Instructions: take 1-2 with snacks and 2-3 with meals K86.81 omeprazole 20 mg capsule,delayed release(DR/EC) 20 mg PO DAILY Qty: 30 3RF valsartan 160 mg tablet 160 mg PO BID Qty: 180 3RF Discontinued meloxicam 15 mg tablet 15 mg PO DAILY aspirin [Adult Low Dose Aspirin] 81 mg tablet,delayed release (DR/EC) 81 mg PO BID Referrals / Follow Up: Melissa Lopes MD [Primary Care Provider] - Within 2 Weeks Disposition Disposition (needs filled in before D/C Order can be placed): Home, Self Care Charges/Coding Visit Charges Inpatient E&M: 51220 Disch Hosp >30min 09/16/24 1524 Cosigner Signature (if applicable): CC: Dr. José Miguel Carlson DO; Dr. Melissa Lopes MD~ Signed [facility]04-08-2025 [facility] Medical Records Department [address] [place] [address] Discharge Summary 09/16/24 1518 MR#: [id number] Acct: [id number] Name: ABEL LYLES Rep #: [id number] : 1950 74 From: José Miguel Carlson DO PCP: Dr. Melissa Lopes MD Status:ADM DARRYL Location: [place] [address] Providers Date of Admission: 09/15/24 Primary Care Physician: Dr. 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 on apixaban troponins negative Echo shows EF 60% with normal RV size. Pt with MENDOZA, which I explained to her would be expected given the large PE, but reassured that this will improve overtime. I anticipate 6 months of treatment. Though with her family history it may be prudent to check a hypercoagulable work up once she has completed anticoagulation. This was likely provoked given her recent ankle surgery. She was on ASA 81 BID and compliant, but clearly ineffective for preventing this. Plan Chronic conditions: * HTN: losartan * hypothyoidism: levothyroxine * Recent ankle surgery: follow up with ortho/podiatry and plastic for the poorly healing wound. VTE prophylaxis: not indicated as already on apixaban. Medications at Discharge Home Medications duloxetine 60 mg capsule,delayed release 60 mg PO QHS 07/29/18 hydroxychloroquine 200 mg tablet (Plaquenil) 200 mg PO QHS arthritis 07/29/18 levothyroxine 100 mcg tablet (Synthroid) 100 mcg PO DAILY 07/29/18 buspirone 7.5 mg tablet 11.25 mg PO BID 11/28/21 dicyclomine 10 mg capsule 10 mg PO TID #90 caps 03/19/24 acetaminophen 500 mg capsule 500 mg PO Q8 PRN fever or pain 05/12/24 cholecalciferol (vitamin D3) 10 mcg (400 unit) capsule 10 mcg PO QDAY 05/12/24 clonazepam 0.5 mg tablet 0.5 mg PO QHS 05/12/24 multivitamin 1 tab PO QDAY 05/12/24 [id number]-bmtojms 36,000-114,000-180,000 unit capsule,delay rel (Creon) See Rx Instructions PO .COMPLEX #320 caps 05/22/24 omeprazole 20 mg capsule,delayed release 20 mg PO DAILY #30 caps 07/01/24 valsartan 160 mg tablet 160 mg PO BID #180 tabs 09/03/24 brexpiprazole 2 mg tablet (Rexulti) 2 mg PO DAILY 09/15/24 cephalexin 500 mg capsule 500 mg PO Q6H 09/15/24 gabapentin 300 mg capsule 300 mg PO TID 09/15/24 oxycodone 5 mg tablet 5 mg PO Q6H PRN pain 09/15/24 psyllium husk 0.52 gram capsule (Daily Fiber) 0.52 g PO DAILY 09/15/24 apixaban 5 mg (74 tabs) tablets in a dose pack See Rx Instructions PO .COMPLEX #74 tabs 09/16/24 Hospital Course Procedures 2-D Echocardiogram Summary of Care Provided Minutes Spent on Discharge: 40 Hospital Course: Patient presents with shortness of breath. CTA of her chest showed a central right upper and lower lobe occlusive and nonocclusive pulmonary emboli. Patient also noted to have a right lower lobe possible developing pulmonary infarct. Patient had normal troponins and had no RV strain on CAT scan. Echocardiogram performed today showed normal LV size. Patient is short of breath with exertion. I explained to her that is a to be expected given her pulmonary embolism. Expressed that with time that that should resolve and her breathing will get better. This pulmonary embolism was likely provoked given her recent ankle surgery though she was taking aspirin 81 twice daily for that. Aspirin will be discontinued and patient will continue with 6 months of apixaban. Though its likely provoked PE she may have a predisposition as she has a family member, her sister, who from a pulmonary embolism. Perhaps a hypercoagulable workup would be advised when she has completed anticoagulation. Weight / BMI Weight Weight: 99 kg Body Mass Index (BMI) 38.6 ABG / Lab / Microbiology Data 09/16/24 07:02 09/16/24 07:02 Laboratory: Laboratory Results - last 24 hr 09/15/24 15:06: Troponin T Hi Sens 4Hr 12 09/16/24 07:02: WBC 12.0 H, RBC 4.09 L, Hgb 11.6 L, Hct 35.6 L, MCV 87.0, MCH 28.4, MCHC 32.6, RDW Std Deviation 47.9 H, RDW Coeff of Mikel 14.8 H, Plt Count 259, MPV 11.6, Immature Gran % (Auto) 0.300, Neut % (Auto) 66.9, Lymph % (Auto) 23.3, Lajas % (Auto) 8.5, Eos % (Auto) 0.8, Baso % (Auto) 0.2, Absolute Neuts (auto) 8.0 H, Absolute Lymphs (auto) 2.79, Nucleated RBC % 0, Sodium 134, Potassium 4.9, Chloride 100, Carbon Dioxide 20.3 L, Anion Gap 14, BUN 18, Creatinine 1.01, Estim Creat Clear Calc 53.97, Est GFR (MDRD) Non-Af 58 L, BUN/Creatinine Ratio 17.3, Glucose 114 H, Calcium 8.9 ABG: ABG 09/15/24 23:39 Specimen Type ART Sample Site L Radial pH 7.56 H Bicarbonate Ac (more content not included)...[facility] 09-16-2024 Progress note [facility] Medical Records Department [address] [place] [address] Progress Note - Hospitalist 09/16/24900 MR#: [id number] Acct: [id number] Name: ABEL LYLES Rep #:[id number] : 1950 74 From: José Miguel Carlson DO PCP: Dr. Melissa Lopes MD Status:ADM DARRYL Location: [place] [address] Reason for Visit Reason for Visit: Diagnoses Other pulmonary embolism without acute cor pulmonale (09/15/24) Subjective Subjective Still with MENDOZA. Limited mobility given recent ankle surgery on the right. Objective Data Objective Data Vital Signs: Vital Signs Temp Pulse Resp BP Pulse Ox O2 Del Method O2 Flow Rate 36.5 C L 56 L 14 142/53 H 100 Nasal Cannula 2 09/16/24 08:00 09/16/24 08:00 09/16/24 08:00 09/16/24 08:00 09/16/24 08:00 09/16/24 08:00 09/16/24 08:00 Oxygen Flow Rate (L/min) 2 Oxygen Delivery Method Nasal Cannula Weight: 99 kg Body Mass Index (BMI) 38.6 Lab / Micro Data 09/16/24 07:02 09/16/24 07:02 Labs: Laboratory Results - last 24 hr 09/15/24 11:22: WBC 16.1 H, RBC 4.43, Hgb 12.5, Hct 38.9, MCV 87.8, MCH 28.2, MCHC 32.1, RDW Std Deviation 47.3 H, RDW Coeff of Mikel 14.6, Plt Count 240, MPV 10.9, Immature Gran % (Auto) 0.400, Neut %(Auto) 75.0 H, Lymph % (Auto) 15.7 L,Lajas % (Auto) 6.5, Eos % (Auto) 2.1, Baso % (Auto) 0.3, Absolute Neuts (auto) 12.1 H, Absolute Lymphs (auto) 2.52, Nucleated RBC % 0, PT 12.9, INR 1.0, APTT 24.8,Sodium 139, Potassium 4.1, Chloride 105, Carbon Dioxide 23.3, Anion Gap 11, BUN 16, Creatinine 0.83, Estim Creat Clear Calc 66.83, Est GFR (MDRD) Non-Af74, BUN/Creatinine Ratio 19.5, Glucose 112 H, Calcium 9.2, Troponin T High Sens 14, NT pro BNP II 101 09/15/24 13:19: Troponin T Hi Sens 2 Hr 13 09/15/24 15:06: Troponin T Hi Sens 4Hr 12 09/16/24 07:02: WBC 12.0 H, RBC 4.09 L, Hgb 11.6 L, Hct 35.6 L, MCV 87.0, MCH 28.4, MCHC 32.6, RDW Std Deviation 47.9 H, RDW Coeff of Mikel 14.8 H, Plt Count 259, MPV 11.6, Immature Gran % (Auto) 0.300, Neut % (Auto) 66.9, Lymph % (Auto) 23.3, Lajas % (Auto) 8.5, Eos % (Auto) 0.8, Baso % (Auto) 0.2, Absolute Neuts (auto) 8.0 H, Absolute Lymphs (auto) 2.79, Nucleated RBC % 0, Sodium 134, Potassium 4.9, Chloride 100, Carbon Dioxide 20.3 L, Anion Gap 14, BUN 18, Creatinine 1.01, Estim Creat Clear Calc 53.97, Est GFR (MDRD) Non-Af 58 L, BUN/Creatinine Ratio 17.3, Glucose 114 H, Calcium 8.9 ABG Data ABG results: ABG 09/15/24 23:39 Specimen Type ART Sample Site L Radial pH 7.56 H Bicarbonate Actual 35.7 H Total CO2 37 Base Excess 13 H O2 Saturation 98 O2 % 3.0 ABG pCO2 40.2 ABG pO2 90 Bing Test Positive O2 Delivery Device Cannula Vent Mode Not entered Radiography Diagnostic Testing: Radiology Impression Chest CTA 09/15/24 11:05 IMPRESSION: 1. Central RIGHT upper and lower lobe occlusive and nonocclusive pulmonary emboli as detailed. No definite central or definite LEFT-sided pulmonary embolism allowing for limitations. 2. Mild focal ground-glass in the lateral RIGHT lower lobe could reflect a developing pulmonary infarct given the above. Pneumonia/pneumonitis is an additional consideration. 3. Mild mediastinal lymphadenopathy, nonspecific and potentially reactive in theabsence of known malignancy. Correlate with medical history and follow-up as indicated. 4. Cholecystectomy with dilatation of the CBD which may be related to post cholecystectomy effect. Correlate with serum bilirubin and consider outpatient MRCP as indicated. 5. Tiny 8 mm peripherally calcified distal splenic artery aneurysm. 6. Additional description as above. IMPRESSION: [place] Alert: Impression #1 and #2 The critical information above was relayed directly by me by telephone to Mariana Clemons on 09/15/2024 at 11:36 am MST with readback verification. Reading Location: [facility] Rhythm Strip Rhythm Strip: Sinus Rhythm Rate: 65 Ectopy: None Physical Exam Const alert Constitutional Narrative: up in chair. no respiratory distress. no conversational dyspnea. Extremity Extremity Narrative: right LE edema. Neuro Sensorium / Orientation: awake and alert Assessment & Plan Assessment/Plan (1) Pulmonary embolism: PLAN: Large Right upper and lower lobe occlusive and nonocclusive PE. on apixaban troponins negative Echo shows EF 60% with normal RV size. Pt with MENDOZA, which I explained to her would be expected given the large PE, but reassured that thiswill improve overtime. I anticipate 6 months of treatment. Though with her family history it may beprudent to check a hypercoagulable workup once she has completed anticoagulation. This was likely provoked given her recent ankle surgery. She was on ASA 81 BID and compliant, but clearly ineffective for preventing this. PLAN: Plan Chronic conditions: * HTN: losartan * hypothyoidism: levothyroxine * Recent ankle surgery: follow up with ortho/podiatry and plastic for the poorly healing wound. VTE prophylaxis: not indicated as already on apixaban. 09/16/24 1518 Cosigner Signature (if applicable): CC: ~ Signed [facility]04-07-2025 History and physical note Author Stanislav Akers [facility] Note Date/Time September 15, 2024 5:04 pm [facility] Medical Records Department [address] [place] [address] H&P Exam - Hospitalist 09/15/24 3965 MR#: [id number] Acct: [id number] Name: ABEL LYLES Rep #:[id number] : 1950 74 From: Stanislav verduzco MD PCP: Dr. Melissa Lopes MD Status:ADM DARRYL Location: [place] [address] HPI - General General Date of Admission: 09/15/24 HPI Narrative ABEL LYLES, is a 74 F who presents to the hospital with chest pain shortness of breath that started today. She had right lower extremity foot surgery on 08/13/2024 and was discharged from an outside hospital on aspirin 81 mg p.o. twicedaily. Since her surgery, on the right leg she has had some calf pain and then today had her shortness of breath and chest pain. Troponins x 2 are negative, BNP is also normal, and there is no right heart strain on CTA of the chest despite a somewhat central right PE. She does have some anxiety surrounding this pulmonary embolism as her half-sister from a blood clot to her lungs. There is no other family history of blood clots or miscarriages. She does have some pain with inspiration indicating pleuritic chest pain, and on the CT scan there is some mild groundglass opacities on the right lung consistent with possible infarct due to her pulmonary embolisms. I discussed the case with vascular surgery who does not plan any intervention at this time. She was given10 mg of Eliquis in the ER. She has not noticed any swelling in her right lowerextremity, and her foot is currently wrapped. She states that she has not had great wound healing and is scheduled to see a plastic surgeon with wound expertise within the next week or so. [facility], [facility] Medical History Irritable bowel syndrome Pancreatitis Tension headache Wears hearing aid Post-menopausal History of steroid therapy Walker as ambulation aid Arthritis Anemia Back pain Difficulty swallowing Diarrhea Wears glasses Depression Anxiety Thyroid disease Unspecified diffuse connective tissue disease Easy bruising History of IBS Non-smoker Shortness of breath on exertion History of echocardiogram Cardiac murmur Hip pain, left Home Medications ?Medication ?Instructions ?Recorded ?Last Taken ?Type duloxetine 60 mg capsule,delayed 60 mg PO QHS 07/29/18 09/14/24 History release hydroxychloroquine 200 mg tablet 200 mg PO QHS arthrit is 07/29/18 09/14/24 History (Plaquenil) levothyroxine 100 mcg tablet 100 mcg PO DAILY 07/29/18 09/15/24 History (Synthroid) buspirone 7.5 mg tablet 11.25 mg PO BID 11/28/2101/02 History meloxicam 15 mg tablet 15 mg PO DAILY 12/18/2312/03 History dicyclomine 10 mg capsule 10 mg PO TID #90 caps 09/14/24 Rx acetaminophen 500 mg capsule 500 mg PO Q8 PRN fever or pain 05/12/24 09/15/24 History cholecalciferol (vitamin D3) 10 10 mcg PO QDAY 4 09/15/24 History mcg (400 unit) capsule clonazepam 0.5 mg tablet 0.5 mg PO QHS 05/12/2409/14 History multivitamin 1 tab PO QDAY 05/12/2409/15 History [id number] See Rx Instructions PO .COMP ARUNA 05/22/24 09/15/24 Rx 36,000-114,000-180,000 unit #320 caps capsule,delay rel (Creon) omeprazole 20 mg capsule,delayed 20 mg PO DAILY #30 ca ps 07/01/24 09/15/24 Rx release valsartan 160 mg tablet 160 mg PO BID #180 tabs 08/1009/15/24 Rx aspirin 81 mg tablet,delayed 81 mg PO BID 09/15/2401/02 History release (Adult Low Dose Aspirin) brexpiprazole 2 mg tablet (Rexulti) 2 mg PO DAILY 01/0209/14/24 History cephalexin 500 mg capsule 500 mg PO Q6H 09/15/2409/14 History gabapentin 300 mg capsule 300 mg PO TID 09/15/2409/15 History oxycodone 5 mg tablet 5 mg PO Q6H PRN pain 5 09/14/24 History psyllium husk 0.52 gram capsule 0.52 g PO DAILY 09/15/24 History (Daily Fiber) Allergy/AdvReac Type Severity Reaction Status Date / Time grass pollen Allergy Mild Other Verified 05/15/24 10:10 house dust Allergy Mild Other Verified 05/15/24 10:10 oak Allergy Mild Other Verified 05/15/24 10:10 Seasonal Allergies: Uncoded Allergy Mild nasal Verified 05/15/24 10:10 congestion soap AdvReac Mild Rash Verified 05/15/24 10:10 Family History (Updated 09/15/24 @ 16:32 by Nicole Hu) Mother Oat cell carcinoma of lung Brother Cancer Grandmother Thyroid disorder Uncle Diabetes Sister Pulmonary embolism Surgical History Hx of surgical procedure History of esophagogastroduodenoscopy (EGD) Hx of colonoscopy Hx of thumb surgery History of carpal tunnel surgery of right wrist History of carpal tunnel surgery of left wrist History of cholecystectomy History of cataract extraction History of bunionectomy History of broken nose History of hip replacement History of laminectomy History of knee replacement Social History household members: none number of children: 2 current occupational status: retired Smoking Status: Never smoker Electronic Cigarette Use: not used alcohol intake: current alcohol intake frequency: other details: occasional use substance use type: does not use ROS Constitutional Constitutional: Denies chills, fatigue, fever(s) or malaise Eyes Eyes: Denies blurry vision ENT HEENT: Denies headache(s) or nasal discharge Cardiovascular Cardiovascular: Reports chest pain and dyspnea on exertion; Denies syncope Respiratory/Chest Respiratory/Chest: Denies cough, shortness of breath at rest or shortness of breath with exertion Gastrointestinal Gastrointestinal: Denies constipation, diarrhea, nausea or vomiting Genitourinary Genitourinary: Denies dysuria Neurologic Neurologic: Denies focal weakness, numbness or tremor(s) Psychiatric Psychiatric: Denies anxiety or depression Vital Signs Vital Signs Vital Signs: 09/15/24 10:47 09/15/24 12:46 09/15/24 14:00 Temperature 97.8 F Temperature Source Oral Pulse Rate 66 64 69 Respiratory Rate 21 H 19 H 15 Blood Pressure 179/52 H 167/60 H 197/64 H Blood Pressure Mean 94 95 108 Pulse Ox 96 98 97 Oxygen Delivery Method Room Air Room Air Room Air Weight Weight: 225 lb 1.471 oz Body Mass Index (BMI) 39.9 Physical Exam Narrative General: Alert, Oriented x3, Cooperative, No apparent distress HEENT: Atraumatic, PERRLA, EOMI, Normocephalic Oral: Moist Mucosa Neck: Supple, No JVD Lungs: Diminished, Normal air movement, No rhonchi, No wheeze, No rales Cardiovascular: Regular rate, Regular Rhythm, Normal S1, Normal S2, No murmurs Abdomen: Soft, Non Tender, Non-Distended, No Hepato-splenomegaly Extremities: No edema, Capillary Refill Less than 3 Seconds Skin: Right foot surgical wound is currently dressed, this was not taken down toassess Musculoskeletal: No Tenderness to Palpation of Joints or Extremities Neurological: No focal neurological deficits, Motor Exam 5/5 strength throughout, Sensory exam intact to light touch and pain Psych/Mental Status: Normal Affect, Appropriate Results Lab / Micro Data 09/15/24 11:22 09/15/24 11:22 Labs: Laboratory Results - last 24 hr 09/15/24 11:22: WBC 16.1 H, RBC 4.43, Hgb 12.5, Hct 38.9, MCV 87.8, MCH 28.2, MCHC 32.1, RDW Std Deviation 47.3 H, RDW Coeff of Mikel 14.6, Plt Count 240, MPV 10.9, Immature Gran % (Auto) 0.400, Neut % (Auto) 75.0 H, Lymph % (Auto) 15.7 L,Lajas % (Auto) 6.5, Eos % (Auto) 2.1, Baso % (Auto) 0.3, Absolute Neuts (auto) 12.1 H, Absolute Lymphs (auto) 2.52, Nucleated RBC % 0, PT 12.9, INR 1.0, APTT 24.8, Sodium 139, Potassium 4.1, Chloride 105, Carbon Dioxide 23.3, Anion Gap 11, BUN 16, Creatinine 0.83, Estim Creat Clear Calc 66.83, Est GFR (MDRD) Non-Af74, BUN/Creatinine Ratio 19.5, Glucose 112 H, Calcium 9.2, Troponin T High Sens 14, NT pro BNP II 101 09/15/24 13:19: Troponin T Hi Sens 2 Hr 13 Rhythm Strip Rhythm Strip: Sinus Rhythm Rate: 65 Ectopy: None Imaging Radiology Impression Chest CTA 09/15/24 11:05 IMPRESSION: 1. Central RIGHT upper and lower lobe occlusive and nonocclusive pulmonary emboli as detailed. No definite central or definite LEFT-sided pulmonary embolism allowing for limitations. 2. Mild focal ground-glass in the lateral RIGHT lower lobe could reflect a developing pulmonary infarct given the above. Pneumonia/pneumonitis is an additional consideration. 3. Mild mediastinal lymphadenopathy, nonspecific and potentially reactive in theabsence of known malignancy. Correlate with medical history and follow-up as indicated. 4. Cholecystectomy with dilatation of the CBD which may be related to post cholecystectomy effect. Correlate with serum bilirubin and consider outpatient MRCP as indicated. 5. Tiny 8 mm peripherally calcified distal splenic artery aneurysm. 6. Additional description as above. IMPRESSION: [place] Alert: Impression #1 and #2 The critical information above was relayed directly by me by telephone to Mariana Clemons on 09/15/2024 at 11:36 am MST with readback verification. Reading Location: [id number] Assessment & Plan Assessment/Plan (1) Pulmonary embolism: PLAN: Plan 1. Pulmonary embolism ? This was provoked from surgery ? She was also having some right calf pain, could be due to right-sided DVT versus surgical pain. Since she will be treated with anticoagulation and given her family history of her half sister dying from a blood clot I do anticipate a longer term of anticoagulation therefore will not obtain a Doppler ultrasound atthis time ? Given the lack of dilation of the right ventricle or troponin elevation, will hold off on echo at this time as well. She did have an echo on 06/13/2024 with anEF of 65% and stage I diastolic dysfunction, RVSP of 39 mmHg As she is not requiring any oxygen either at rest or with ambulation ? She was given 10 mg of Eliquis here in the ER, will repeat the dosing tonight at 10 PM, renal function is normal ? She does have a leukocytosis in the absence of pneumonia, this is likely a result of her PE with possible pulmonary infarction in her right lower lobe ? Would benefit from an hematology workup as an outpatient ? Continue with pain management with her home oxycodone and morphine as needed 2. Essential HTN/HLD ? She is hypertensive here in the ER will continue with her home blood pressure medications and make changes as indicated ? This is likely in relation to pain, and her anxiety surrounding her diagnosis ? Will hold her aspirin for the twice daily dosing as she was on as she is on Eliquis now 3. Hypothyroidism ? Stable ? Continue with Synthroid 4. Pancreatic insufficiency/GERD ? Stable ? Continue with Creon and PPI 5. Anxiety/depression ? Stable ? Continue with her home medications 6. Arthritis ? Stable ? Continue with Plaquenil DVT: Eliquis 75 minutes was spent on direct patient care, including documentation as well as chart review and collaboration with colleagues Charges/Coding Visit Charges Inpatient E&M: 70765 Init Hosp L3 09/15/24 1704 <Electronically signed by Stanislav Akers MD> Cosigner Signature (if applicable): CC: Dr. Stanislav Akers MD; Dr. Melissa Lopes MD~ Signed [facility] Work Phone: [phone] 139-863304-07-2025 Discharge summary [facility] Note Date/Time September 15, 2024 3:37 pm [facility] Medical Records Department [address] [place] [address] Emergency Department Summary 09/15/24 MR#: [id number] Acct: [id number] Name: ABEL LYLES Rep #:[id number] : 1950 74 From: Mariana Morley PCP: Dr. Melissa Lopes MD Status:REG ER Location: ED HPI History of Present Illness Chief Complaint: Chest Pain Informant: patient Narrative Narrative: Patient is a 74-year-old female with history of IBS, hypothyroidism, hypertension, hyperlipidemia and recent fusion of her right ankle on August [address] Barone at the [facility]. She has been on aspirin 81 mg twice daily since then. She is nonweightbearing. She notes that this morning she developedpain under her right breast. It seems to be worse with breathing and especiallywith coughing. She had a coughing spell this morning she states was very painful. She states the cough is nonproductive. Denies any fever or recent URIsymptoms peer denies any nausea or vomiting. Denies feeling short of breath. Denies any new swelling of her leg. Denies any injury or falls. States she didhave OT today and had a shower but does not think this is related. States she felt well yesterday. Denies any history of DVT or PE. No other complaints or concerns reported at this time. Notes she has been doing with some constipation recently but denies any acute concerns with this at this time. [facility] Medical History Irritable bowel syndrome Pancreatitis Tension headache Wears hearing aid Post-menopausal History of steroid therapy Walker as ambulation aid Arthritis Anemia Back pain Difficulty swallowing Diarrhea Wears glasses Depression Anxiety Thyroid disease Unspecified diffuse connective tissue disease Easy bruising History of IBS Non-smoker Shortness of breath on exertion History of echocardiogram Cardiac murmur Hip pain, left Home Medications ?Medication ?Instructions ?Recorded ?Last Taken ?Type duloxetine 60 mg capsule,delayed 60 mg PO QHS 07/29/18 09/14/24 History release hydroxychloroquine 200 mg tablet 200 mg PO QHS arthrit is 07/29/18 09/14/24 History (Plaquenil) levothyroxine 100 mcg tablet 100 mcg PO DAILY 07/29/18 09/15/24 History (Synthroid) buspirone 7.5 mg tablet 11.25 mg PO BID 11/28/2101/02 History meloxicam 15 mg tablet 15 mg PO DAILY 12/18/2312/03 History dicyclomine 10 mg capsule 10 mg PO TID #90 caps 09/14/24 Rx acetaminophen 500 mg capsule 500 mg PO Q8 PRN fever or pain 05/12/24 09/15/24 History cholecalciferol (vitamin D3) 10 10 mcg PO QDAY 4 09/15/24 History mcg (400 unit) capsule clonazepam 0.5 mg tablet 0.5 mg PO QHS 05/12/2409/14 History multivitamin 1 tab PO QDAY 05/12/2409/15 History [id number] See Rx Instructions PO .COMP ARUNA 05/22/24 09/15/24 Rx 36,000-114,000-180,000 unit #320 caps capsule,delay rel (Creon) omeprazole 20 mg capsule,delayed 20 mg PO DAILY #30 ca ps 07/01/24 09/15/24 Rx release valsartan 160 mg tablet 160 mg PO BID #180 tabs 08/1009/15/24 Rx aspirin 81 mg tablet,delayed 81 mg PO BID 09/15/2401/02 History release (Adult Low Dose Aspirin) brexpiprazole 2 mg tablet (Rexulti) 2 mg PO DAILY 01/0209/14/24 History cephalexin 500 mg capsule 500 mg PO Q6H 09/15/2409/14 History gabapentin 300 mg capsule 300 mg PO TID 09/15/2409/15 History oxycodone 5 mg tablet 5 mg PO Q6H PRN pain 5 09/14/24 History psyllium husk 0.52 gram capsule 0.52 g PO DAILY 09/15/24 History (Daily Fiber) Allergy/AdvReac Type Severity Reaction Status Date / Time grass pollen Allergy Mild Other Verified 05/15/24 10:10 house dust Allergy Mild Other Verified 05/15/24 10:10 oak Allergy Mild Other Verified 05/15/24 10:10 Seasonal Allergies: Uncoded Allergy Mild nasal Verified 05/15/24 10:10 congestion soap AdvReac Mild Rash Verified 05/15/24 10:10 Family History Mother Oat cell carcinoma of lung Brother Cancer Grandmother Thyroid disorder Uncle Diabetes Surgical History Hx of surgical procedure History of esophagogastroduodenoscopy (EGD) Hx of colonoscopy Hx of thumb surgery History of carpal tunnel surgery of right wrist History of carpal tunnel surgery of left wrist History of cholecystectomy History of cataract extraction History of bunionectomy History of broken nose History of hip replacement History of laminectomy History of knee replacement Social History household members: none number of children: 2 current occupational status: retired Smoking Status: Never smoker Electronic Cigarette Use: not used alcohol intake: current alcohol intake frequency: other details: occasional use substance use type: does not use ROS ROS ED Constitutional Constitutional ED: Denies chills or fever(s) ENT ENT ED: Denies rhinorrhea or sore throat Cardiovascular Cardiovascular: Reports as per HPI and chest pain; Denies palpitations Respiratory/Chest Respiratory/Chest: Reports cough; Denies dyspnea Gastrointestinal Gastrointestinal: Reports constipation; Denies nausea or vomiting Musculoskeletal Musculoskeletal: Reports other Details: Recent right foot/ankle surgery?currently nonweightbearing Integumentary Denies rash Neurologic Neurologic: Denies paresthesias or weakness Psychiatric Psychiatric: Denies anxiety Hematologic/Lymphatic Hematologic/Lymphatic: Denies easy bleeding or easy bruising EXAM Physical Exam Const Vital Signs: 09/15/24 10:47 09/15/24 12:46 09/15/24 14:00 Temperature 97.8 F Temperature Source Oral Pulse Rate 66 64 69 Respiratory Rate 21 H 19 H 15 Blood Pressure 179/52 H 167/60 H 197/64 H Blood Pressure Mean 94 95 108 Pulse Ox 96 98 97 Oxygen Delivery Method Room Air Room Air Room Air 09/15/24 15:00 Temperature 98.9 F Temperature Source Pulse Rate 68 Respiratory Rate 18 Blood Pressure 168/65 H Blood Pressure Mean 99 Pulse Ox 97 Oxygen Delivery Method Positive well nourished and well developed General Appearance ED: well developed and NAD HEENT Reports moist mucous membranes Neck supple and no JVD Chest Wall inspection of chest normal and palpation of chest normal Chest Narrative: Patient notes she has improvement with her discomfort with direct palpation to the right chest. No associated rash. No chest wall crepitus. Resp normal respiratory effort and clear to auscultation bilaterally Cardio regular rate and regular rhythm Peripheral Pulses: dorsalis pedis pulses present right 2+ Back/Spine no thoracic nor lumbar tenderness Extremity Extremity Narrative: No edema present. Compartments are soft. No palpable cords. Maximilian wrap/postoperative bandage on right foot clean and dry. Neuro oriented x3 Sensorium / Orientation: awake and alert Motor Exam: Negative for general weakness Psych mental status grossly normal Skin no rashes or lesions noted MDM MDM MDM Narrative Medical decision making narrative: Patient is a 74-year-old female who is 2 months postop from right foot/ankle arthrodesis presenting with 1 day of pleuritic right-sided chest pain and coughing. Patient appears nontoxic. Vital signs significant for hypertension but she states she recently had increased her blood pressure medicine and they have been trying to manage it outpatient. Patient given Lidoderm patch for her pain. Given her recent surgery and pleuritic chest pain high concern for pulmonary emboli. CTA of the chest is ordered as well as lab work including CBC, BNP, high- sensitivity troponin and coags. Patient does have a leukocytosis of 16.1. Remainder of her lab work is largely normal.CTA of the chest shows central rightupper and lower lobe occlusive and nonocclusive pulmonary emboli with groundglass changes to the lateral right lower lobe which could be developing pulmonary infarct versus pneumonia versus pneumonitis. Case discussed with hospitalist, Dr. Duffy. . Patient is very nervous aboutgoing home weeks where she has her maternal half-sister of a pulmonary emboli. Patient will be admitted. Is started on Eliquis and universal to the emergency room. Blood pressure is elevated emergency room however given that her diastolic is normal I suspect it is more anxiety/pain. Is given dose of fentanyl and will continue to monitor blood pressure. Discussed risk of bleeding associate with anticoagulation and patient denies any history of GI bleeding or other abnormal bleeding. Patient does have a leukocytosis. She denies any recent fever or other infectious symptoms. I suspect the leukocytosis and lung parenchymal findings are more associated with infarct and not pneumonia. This will be monitored inpatient. Lab Data Attestation: I reviewed the patient's lab results. Labs: Laboratory Results - last 24 hr 09/15/24 09/15/24 11:22 13:19 WBC 16.1 H RBC 4.43 Hgb 12.5 Hct 38.9 MCV 87.8 MCH 28.2 MCHC 32.1 RDW Std Deviation 47.3 H RDW Coeff of Mikel 14.6 Plt Count 240 MPV 10.9 Immature Gran % (Auto) 0.400 Neut % (Auto) 75.0 H Lymph % (Auto) 15.7 L Lajas % (Auto) 6.5 Eos % (Auto) 2.1 Baso % (Auto) 0.3 Absolute Neuts (auto) 12.1 H Absolute Lymphs (auto) 2.52 Nucleated RBC % 0 PT 12.9 INR 1.0 APTT 24.8 Sodium 139 Potassium 4.1 Chloride 105 Carbon Dioxide 23.3 Anion Gap 11 BUN 16 Creatinine 0.83 Estim Creat Clear Calc 66.83 Est GFR (MDRD) Non-Af 74 BUN/Creatinine Ratio 19.5 Glucose 112 H Calcium 9.2 Troponin T High Sens 14 Troponin T Hi Sens 2 Hr 13 NT pro BNP II 101 Radiography Diagnostic Testing: Clinical Impression(s) from Imaging Studies Chest CTA 09/15/24 11:05 IMPRESSION: 1. Central RIGHT upper and lower lobe occlusive and nonocclusive pulmonary emboli as detailed. No definite central or definite LEFT-sided pulmonary embolism allowing for limitations. 2. Mild focal ground-glass in the lateral RIGHT lower lobe could reflect a developing pulmonary infarct given the above. Pneumonia/pneumonitis is an additional consideration. 3. Mild mediastinal lymphadenopathy, nonspecific and potentially reactive in theabsence of known malignancy. Correlate with medical history and follow-up as indicated. 4. Cholecystectomy with dilatation of the CBD which may be related to post cholecystectomy effect. Correlate with serum bilirubin and consider outpatient MRCP as indicated. 5. Tiny 8 mm peripherally calcified distal splenic artery aneurysm. 6. Additional description as above. IMPRESSION: [place] Alert: Impression #1 and #2 The critical information above was relayed directly by me by telephone to Mariana Clemons on 09/15/2024 at 11:36 am MST with readback verification. Reading Location: [facility] Rhythm Strip Rhythm Strip: Sinus Rhythm Rate: 65 Ectopy: None EKG Initial EKG: Attestation: I personally reviewed and interpreted this EKG as follows: Comments: Normal sinus rhythm at a rate 65 bpm Normal axis Normal intervals Normal ST segments When compared to prior EKG on 10/09/2020, slight T wave morphology change to lead III with no other acute changes Management Discussion w/another healthcare provider: Hospitalist Discharge Plan Triage Chief Complaint: Chest Pain ED Provider: Mariana Clemons Dx/Rx/DC Orders Clinical Impression: Pulmonary embolism on right, Hypertension, Pulmonary infarction, Acute right- sided thoracic back pain, Pleurisy, Leukocytosis Prescriptions: No Action meloxicam 15 mg tablet 15 mg PO DAILY multivitamin Tablet 1 tab PO QDAY clonazepam 0.5 mg tablet 0.5 mg PO QHS Rx Instructions: administer 30 minutes before bedtime acetaminophen 500 mg capsule 500 mg PO Q8 PRN (Reason: fever or pain) cholecalciferol (vitamin D3) 10 mcg (400 unit) capsule 10 mcg PO QDAY levothyroxine [Synthroid] 100 MCG tablet 100 mcg PO DAILY hydroxychloroquine [Plaquenil] 200 MG tablet 200 mg PO QHS duloxetine 60 MG capsule 60 mg PO QHS buspirone 7.5 mg Tablet 11.25 mg PO BID Rexulti 2 mg tablet 2 mg PO DAILY psyllium husk [Daily Fiber] 0.52 gram capsule 0.52 g PO DAILY aspirin [Adult Low Dose Aspirin] 81 mg tablet,delayed release (DR/EC) 81 mg PO BID cephalexin 500 mg capsule 500 mg PO Q6H oxycodone 5 mg tablet 5 mg PO Q6H PRN (Reason: pain) gabapentin 300 mg capsule 300 mg PO TID dicyclomine 10 mg capsule 10 mg PO TID Qty: 90 0RF Creon 36,000-114,000- 180,000 unit capsule,delayed release(DR/EC) See Rx Instructions PO .COMPLEX Qty: 320 5RF Rx Instructions: take 1-2 with snacks and 2-3 with meals K86.81 omeprazole 20 mg capsule,delayed release(DR/EC) 20 mg PO DAILY Qty: 30 3RF valsartan 160 mg tablet 160 mg PO BID Qty: 180 3RF Primary Care Provider: Melissa Lopes Referrals: Melissa Lopes MD [Primary Care Provider] - Print Language: French Disposition Disposition: Acute Care Hospital [facility] What to do if you have Problems For any increased pain, shortness of breath, bleeding, nausea or vomiting, chestpain, or any unexpected problems, contact your Primary Care Provider. Call [facility] ([phone]) or report to the closest Emergency Room. Call 911 if necessary. 09/15/24 1537 <Electronically signed by Mariana Clemons DO> Cosigner Signature (if applicable): CC: Dr. Melissa Lopes MD ~ Signed [facility] Work Phone: [phone] 241-607404-07-2025 History and physical note [facility] Medical Records Department [address] [place] [address] H&P Exam - Hospitalist 09/15/24 1455 MR#: [id number] Acct: [id number] Name: ABEL LYLES Rep #:[id number] : 1950 74 From: Stanislav verduzco MD PCP: Dr. Melissa Lopes MD Status:ADM DARRYL Location: [place] [address] HPI - General General Date of Admission: 09/15/24 HPI Narrative ABEL LYLES, is a 74 F who presents to the hospital with chest pain shortness of breath that started today. She had right lower extremity foot surgery on 08/13/2024 and was discharged from an outsidehospital on aspirin 81 mg p.o. twicedaily. Since her surgery, on the right leg she has had some calf pain and then today had her shortness of breath and chest pain. Troponins x 2 are negative, BNP isalso normal, and there is no right heart strain on CTA of the chest despite a somewhat central right PE. She does have some anxiety surrounding this pulmonary embolism as her half-sister from a blood clot to her lungs. There is no other family history of blood clots or miscarriages. She does have some pain with inspiration indicating pleuritic chest pain, and on the CT scan there is some mild groundglass opacities on the right lung consistent with possible infarct due to her pulmonary embolisms. I discussed the case with vascular surgery who does not plan any intervention at this time. She was given10 mg of Eliquis in the ER. She has not noticed any swelling in her right lowerextremity, and her foot is currently wrapped. She states that she has not had great wound healing and is scheduled to see a plastic surgeon with wound expertise within the next week or so. [facility], [facility] Medical History Irritable bowel syndrome Pancreatitis Tension headache Wears hearing aid Post-menopausal History of steroid therapy Walker as ambulation aid Arthritis Anemia Back pain Difficulty swallowing Diarrhea Wears glasses Depression Anxiety Thyroid disease Unspecified diffuse connective tissue disease Easy bruising History of IBS Non-smoker Shortness of breath on exertion History of echocardiogram Cardiac murmur Hip pain, left Home Medications ?Medication ?Instructions ?Recorded ?Last Taken ?Type duloxetine 60 mg capsule,delayed 60 mg PO QHS 07/29/18 09/14/24 History release hydroxychloroquine 200 mg tablet 200 mg PO QHS arthrit is 07/29/18 09/14/24 History (Plaquenil) levothyroxine 100 mcg tablet 100 mcg PO DAILY 07/29/18 09/15/24 History (Synthroid) buspirone 7.5 mg tablet 11.25 mg PO BID 11/28/2101/02 History meloxicam 15 mg tablet 15 mg PO DAILY 12/18/2312/03 History dicyclomine 10 mg capsule 10 mg PO TID #90 caps 09/14/24 Rx acetaminophen 500 mg capsule 500 mg PO Q8 PRN fever or pain 05/12/24 09/15/24 History cholecalciferol (vitamin D3) 10 10 mcg PO QDAY 4 09/15/24 History mcg (400 unit) capsule clonazepam 0.5 mg tablet 0.5 mg PO QHS 05/12/2409/14 History multivitamin 1 tab PO QDAY 05/12/2409/15 History [id number] See Rx Instructions PO .COMP ARUNA 05/22/24 09/15/24 Rx 36,000-114,000-180,000 unit #320 caps capsule,delay rel (Creon) omeprazole 20 mg capsule,delayed 20 mg PO DAILY #30 ca ps 07/01/24 09/15/24 Rx release valsartan 160 mg tablet 160 mg PO BID #180 tabs 08/1009/15/24 Rx aspirin 81 mg tablet,delayed 81 mg PO BID 09/15/2401/02 History release (Adult Low Dose Aspirin) brexpiprazole 2 mg tablet (Rexulti) 2 mg PO DAILY 01/0209/14/24 History cephalexin 500 mg capsule 500 mg PO Q6H 09/15/2409/14 History gabapentin 300 mg capsule 300 mg PO TID 09/15/2409/15 History oxycodone 5 mg tablet 5 mg PO Q6H PRN pain 5 09/14/24 History psyllium husk 0.52 gram capsule 0.52 g PO DAILY 09/15/24 History (Daily Fiber) Allergy/AdvReac Type Severity Reaction Status Date / Time grass pollen Allergy Mild Other Verified 05/15/24 10:10 house dust Allergy Mild Other Verified 05/15/24 10:10 oak Allergy Mild Other Verified 05/15/24 10:10 Seasonal Allergies: Uncoded Allergy Mild nasal Verified 05/15/24 10:10 congestion soap AdvReac Mild Rash Verified 05/15/24 10:10 Family History (Updated 09/15/24 @ 16:32 by Nicole Hu) Mother Oat cell carcinoma of lung Brother Cancer Grandmother Thyroid disorder Uncle Diabetes Sister Pulmonary embolism Surgical History Hx of surgical procedure History of esophagogastroduodenoscopy (EGD) Hx of colonoscopy Hx of thumb surgery History of carpal tunnel surgery of right wrist History of carpal tunnel surgery of left wrist History of cholecystectomy History of cataract extraction History of bunionectomy History of broken nose History of hip replacement History of laminectomy History of knee replacement Social History household members: none number of children: 2 current occupational status: retired Smoking Status: Never smoker Electronic Cigarette Use: not used alcohol intake: current alcohol intake frequency: other details: occasional use substance use type: does not use ROS Constitutional Constitutional: Denies chills, fatigue, fever(s) or malaise Eyes Eyes: Denies blurry vision ENT HEENT: Denies headache(s) or nasal discharge Cardiovascular Cardiovascular: Reports chest pain and dyspnea on exertion; Denies syncope Respiratory/Chest Respiratory/Chest: Denies cough, shortness of breath at rest or shortness of breath with exertion Gastrointestinal Gastrointestinal: Denies constipation, diarrhea, nausea or vomiting Genitourinary Genitourinary: Denies dysuria Neurologic Neurologic: Denies focal weakness, numbness or tremor(s) Psychiatric Psychiatric: Denies anxiety or depression Vital Signs Vital Signs Vital Signs: 09/15/24 10:47 09/15/24 12:46 09/15/24 14:00 Temperature 97.8 F Temperature Source Oral Pulse Rate 66 64 69 Respiratory Rate 21 H 19 H 15 Blood Pressure 179/52 H 167/60 H 197/64 H Blood Pressure Mean 94 95 108 Pulse Ox 96 98 97 Oxygen Delivery Method Room Air Room Air Room Air Weight Weight: 225 lb 1.471 oz Body Mass Index (BMI) 39.9 Physical Exam Narrative General: Alert, Oriented x3, Cooperative, No apparent distress HEENT: Atraumatic, PERRLA, EOMI, Normocephalic Oral: Moist Mucosa Neck: Supple, No JVD Lungs: Diminished, Normal air movement, No rhonchi, No wheeze, No rales Cardiovascular: Regular rate, Regular Rhythm, Normal S1, Normal S2, No murmurs Abdomen: Soft, Non Tender, Non-Distended, No Hepato-splenomegaly Extremities: No edema, Capillary Refill Less than 3 Seconds Skin: Right foot surgical wound is currently dressed, this was not taken down toassess Musculoskeletal: No Tenderness to Palpation of Joints or Extremities Neurological: No focal neurological deficits, Motor Exam 5/5 strength throughout, Sensory exam intact to light touch and pain Psych/Mental Status: Normal Affect, Appropriate Results Lab / Micro Data 09/15/24 11:22 09/15/24 11:22 Labs: Laboratory Results - last 24 hr 09/15/24 11:22: WBC 16.1 H, RBC 4.43, Hgb 12.5, Hct 38.9, MCV 87.8, MCH 28.2, MCHC 32.1, RDW Std Deviation 47.3 H, RDW Coeff of Mikel 14.6, Plt Count 240, MPV 10.9, Immature Gran % (Auto) 0.400, Neut %(Auto) 75.0 H, Lymph % (Auto) 15.7 L,Lajas % (Auto) 6.5, Eos % (Auto) 2.1, Baso % (Auto) 0.3, Absolute Neuts (auto) 12.1 H, Absolute Lymphs (auto) 2.52, Nucleated RBC % 0, PT 12.9, INR 1.0, APTT 24.8,Sodium 139, Potassium 4.1, Chloride 105, Carbon Dioxide 23.3, Anion Gap 11, BUN 16, Creatinine 0.83, Estim Creat Clear Calc 66.83, Est GFR (MDRD) Non-Af74, BUN/Creatinine Ratio 19.5, Glucose 112 H, Calcium 9.2, Troponin T High Sens 14, NT pro BNP II 101 09/15/24 13:19: Troponin T Hi Sens 2 Hr 13 Rhythm Strip Rhythm Strip: Sinus Rhythm Rate: 65 Ectopy: None Imaging Radiology Impression Chest CTA 09/15/24 11:05 IMPRESSION: 1. Central RIGHT upper and lower lobe occlusive and nonocclusive pulmonary emboli as detailed. No definite central or definite LEFT-sided pulmonary embolism allowing for limitations. 2. Mild focal ground-glass in the lateral RIGHT lower lobe could reflect a developing pulmonary infarct given the above. Pneumonia/pneumonitis is an additional consideration. 3. Mild mediastinal lymphadenopathy, nonspecific and potentially reactive in theabsence of known malignancy. Correlate with medical history and follow-up as indicated. 4. Cholecystectomy with dilatation of the CBD which may be related to post cholecystectomy effect. Correlate with serum bilirubin and consider outpatient MRCP as indicated. 5. Tiny 8 mm peripherally calcified distal splenic artery aneurysm. 6. Additional description as above. IMPRESSION: [place] Alert: Impression #1 and #2 The critical information above was relayed directly by me by telephone to Mariana Clemons on 09/15/2024 at 11:36 am MST with readback verification. Reading Location: [facility] Assessment & Plan Assessment/Plan (1) Pulmonary embolism: PLAN: Plan 1. Pulmonary embolism ? This was provoked from surgery ? She was also having some right calf pain, could be due to right-sided DVT versus surgical pain. Since she will be treated with anticoagulation and given her family history of her half sister dying from a blood clot I do anticipate a longer term of anticoagulation therefore will not obtain a Doppler ultrasound atthis time ? Given the lack of dilation of the right ventricle or troponin elevation, will hold off on echo atthis time as well. She did have an echo on 06/13/2024 with anEF of 65% and stage I diastolic dysfunction, RVSP of 39 mmHg As she is not requiring any oxygen either at rest or with ambulation ? She was given 10 mg of Eliquis here in the ER, will repeat the dosing tonight at 10 PM, renal function is normal ? She does have a leukocytosis in the absence of pneumonia, this is likely a result of her PE with possible pulmonary infarction in her right lower lobe ? Would benefit from an hematology workup as an outpatient ? Continue with pain management with her home oxycodone and morphine as needed 2. Essential HTN/HLD ? She is hypertensive here in the ER will continue with her home blood pressure medications and make changes as indicated ? This is likely in relation to pain, and her anxiety surrounding her diagnosis ? Will hold her aspirin for the twice daily dosing as she was on as she is on Eliquis now 3. Hypothyroidism ? Stable ? Continue with Synthroid 4. Pancreatic insufficiency/GERD ? Stable ? Continue with Creon and PPI 5. Anxiety/depression ? Stable ? Continue with her home medications 6. Arthritis ? Stable ? Continue with Plaquenil DVT: Eliquis 75 minutes was spent on direct patient care, including documentation as well as chart review and collaboration with colleagues Charges/Coding Visit Charges Inpatient E&M: 06160 Init Hosp L3 09/15/24 1704 Cosigner Signature (if applicable): CC: Dr. Stanislav Akers MD; Dr. Melissa Lopes MD~ Signed [facility]04-07-2025 Discharge summary [facility] Medical Records Department [address] [place] [address] Emergency Department Summary 09/15/24 MR#: [id number] Acct: [id number] Name: ABEL LYLES Rep #:[id number] : 1950 74 From: Mariana Morley PCP: Dr. Melissa Lopes MD Status:REG ER Location: ED HPI History of Present Illness Chief Complaint: Chest Pain Informant: patient Narrative Narrative: Patient is a 74-year-old female with history of IBS, hypothyroidism, hypertension, hyperlipidemia and recent fusion of her right ankle on August [address] Barone at the [facility]. She has been on aspirin 81 mg twice daily since then. She is nonweightbearing. She notes that this morning she develo pedpain under her right breast. It seems to be worse with breathing and especiallywith coughing. She had a coughing spell this morning she states was very painful. She states the cough is nonproductive. Denies any fever or recent URIsymptoms peer denies any nausea or vomiting. Denies feeling short of breath. Denies any new swelling of her leg. Denies any injury or falls. States she didhave OT today and had a shower but does not think this is related. States she felt well yesterday. Denies any history of DVT or PE. No other complaints or concerns reported at this time. Notes she has been doing with some constipation recently but denies any acute concerns with this atthis time. [facility] Medical History Irritable bowel syndrome Pancreatitis Tension headache Wears hearing aid Post-menopausal History of steroid therapy Walker as ambulation aid Arthritis Anemia Back pain Difficulty swallowing Diarrhea Wears glasses Depression Anxiety Thyroid disease Unspecified diffuse connective tissue disease Easy bruising History of IBS Non-smoker Shortness of breath on exertion History of echocardiogram Cardiac murmur Hip pain, left Home Medications ?Medication ?Instructions ?Recorded ?Last Taken ?Type duloxetine 60 mg capsule,delayed 60 mg PO QHS 07/29/18 09/14/24 History release hydroxychloroquine 200 mg tablet 200 mg PO QHS arthrit is 07/29/18 09/14/24 History (Plaquenil) levothyroxine 100 mcg tablet 100 mcg PO DAILY 07/29/18 09/15/24 History (Synthroid) buspirone 7.5 mg tablet 11.25 mg PO BID 11/28/2101/02 History meloxicam 15 mg tablet 15 mg PO DAILY 12/18/2312/03 History dicyclomine 10 mg capsule 10 mg PO TID #90 caps 09/14/24 Rx acetaminophen 500 mg capsule 500 mg PO Q8 PRN fever or pain 05/12/24 09/15/24 History cholecalciferol (vitamin D3) 10 10 mcg PO QDAY 4 09/15/24 History mcg (400 unit) capsule clonazepam 0.5 mg tablet 0.5 mg PO QHS 05/12/2409/14 History multivitamin 1 tab PO QDAY 05/12/2409/15 History [id number] See Rx Instructions PO .COMP ARUNA 05/22/24 09/15/24 Rx 36,000-114,000-180,000 unit #320 caps capsule,delay rel (Creon) omeprazole 20 mg capsule,delayed 20 mg PO DAILY #30 ca ps 07/01/24 09/15/24 Rx release valsartan 160 mg tablet 160 mg PO BID #180 tabs 08/1009/15/24 Rx aspirin 81 mg tablet,delayed 81 mg PO BID 09/15/2401/02 History release (Adult Low Dose Aspirin) brexpiprazole 2 mg tablet (Rexulti) 2 mg PO DAILY 01/0209/14/24 History cephalexin 500 mg capsule 500 mg PO Q6H 09/15/2409/14 History gabapentin 300 mg capsule 300 mg PO TID 09/15/2409/15 History oxycodone 5 mg tablet 5 mg PO Q6H PRN pain 5 09/14/24 History psyllium husk 0.52 gram capsule 0.52 g PO DAILY 09/15/24 History (Daily Fiber) Allergy/AdvReac Type Severity Reaction Status Date / Time grass pollen Allergy Mild Other Verified 05/15/24 10:10 house dust Allergy Mild Other Verified 05/15/24 10:10 oak Allergy Mild Other Verified 05/15/24 10:10 Seasonal Allergies: Uncoded Allergy Mild nasal Verified 05/15/24 10:10 congestion soap AdvReac Mild Rash Verified 05/15/24 10:10 Family History Mother Oat cell carcinoma of lung Brother Cancer Grandmother Thyroid disorder Uncle Diabetes Surgical History Hx of surgical procedure History of esophagogastroduodenoscopy (EGD) Hx of colonoscopy Hx of thumb surgery History of carpal tunnel surgery of right wrist History of carpal tunnel surgery of left wrist History of cholecystectomy History of cataract extraction History of bunionectomy History of broken nose History of hip replacement History of laminectomy History of knee replacement Social History household members: none number of children: 2 current occupational status: retired Smoking Status: Never smoker Electronic Cigarette Use: not used alcohol intake: current alcohol intake frequency: other details: occasional use substance use type: does not use ROS ROS ED Constitutional Constitutional ED: Denies chills or fever(s) ENT ENT ED: Denies rhinorrhea or sore throat Cardiovascular Cardiovascular: Reports as per HPI and chest pain; Denies palpitations Respiratory/Chest Respiratory/Chest: Reports cough; Denies dyspnea Gastrointestinal Gastrointestinal: Reports constipation; Denies nausea or vomiting Musculoskeletal Musculoskeletal: Reports other Details: Recent right foot/ankle surgery?currently nonweightbearing Integumentary Denies rash Neurologic Neurologic: Denies paresthesias or weakness Psychiatric Psychiatric: Denies anxiety Hematologic/Lymphatic Hematologic/Lymphatic: Denies easy bleeding or easy bruising EXAM Physical Exam Const Vital Signs: 09/15/24 10:47 09/15/24 12:46 09/15/24 14:00 Temperature 97.8 F Temperature Source Oral Pulse Rate 66 64 69 Respiratory Rate 21 H 19 H 15 Blood Pressure 179/52 H 167/60 H 197/64 H Blood Pressure Mean 94 95 108 Pulse Ox 96 98 97 Oxygen Delivery Method Room Air Room Air Room Air 09/15/24 15:00 Temperature 98.9 F Temperature Source Pulse Rate 68 Respiratory Rate 18 Blood Pressure 168/65 H Blood Pressure Mean 99 Pulse Ox 97 Oxygen Delivery Method Positive well nourished and well developed General Appearance ED: well developed and NAD HEENT Reports moist mucous membranes Neck supple and no JVD Chest Wall inspection of chest normal and palpation of chest normal Chest Narrative: Patient notes she has improvement with her discomfort with direct palpation to the right chest. No associated rash. No chest wall crepitus. Resp normal respiratory effort and clear to auscultation bilaterally Cardio regular rate and regular rhythm Peripheral Pulses: dorsalis pedis pulses present right 2+ Back/Spine no thoracic nor lumbar tenderness Extremity Extremity Narrative: No edema present. Compartments are soft. No palpable cords. Maximilian wrap/postoperative bandage on rightfoot clean and dry. Neuro oriented x3 Sensorium / Orientation: awake and alert Motor Exam: Negative for general weakness Psych mental status grossly normal Skin no rashes or lesions noted MDM MDM MDM Narrative Medical decision making narrative: Patient is a 74-year-old female who is 2 months postop from right foot/ankle arthrodesis presentingwith 1 day of pleuritic right-sided chest pain and coughing. Patient appears nontoxic. Vital signs significant for hypertension but she states she recently had increased her blood pressure medicine and they have been trying to manage it outpatient. Patient given Lidoderm patch for her pain. Given her recent surgery and pleuritic chest pain high concern for pulmonary emboli. CTA of the chest is ordered as well as lab work including CBC, BNP, high-sensitivity troponin and coags. Patient does have a leukocytosis of 16.1. Remainder of her lab work is largely normal.CTA of the chest shows central rightupper and lower lobe occlusive and nonocclusive pulmonary emboli with groundglass changes to the lateral right lower lobe which could be developing pulmonary infarct versus pneumonia versus pneumonitis. Case discussed with hospitalist, Dr. Duffy. . Patient is very nervous aboutgoing home weeks where she has her maternal half-sister of a pulmonary emboli. Patient will be admitted. Is startedon Eliquis and universal to the emergency room. Blood pressure is elevated emergency room however given that her diastolic is normal I suspect it is more anxiety/pain. Is given dose of fentanyl and will continue to monitor blood pressure. Discussed risk of bleeding associate with anticoagulation and patient denies any history of GI bleeding or other abnormal bleeding. Patient does have a leukocytosis. She denies any recent fever or other infectious symptoms. I suspect the leukocytosis and lung parenchymal findings are more associated with infarct and not pneumonia. This will be monitored inpatient. Lab Data Attestation: I reviewed the patient's lab results. Labs: Laboratory Results - last 24 hr 09/15/24 09/15/24 11:22 13:19 WBC 16.1 H RBC 4.43 Hgb 12.5 Hct 38.9 MCV 87.8 MCH 28.2 MCHC 32.1 RDW Std Deviation 47.3 H RDW Coeff of Mikel 14.6 Plt Count 240 MPV 10.9 Immature Gran % (Auto) 0.400 Neut % (Auto) 75.0 H Lymph % (Auto) 15.7 L Lajas % (Auto) 6.5 Eos % (Auto) 2.1 Baso % (Auto) 0.3 Absolute Neuts (auto) 12.1 H Absolute Lymphs (auto) 2.52 Nucleated RBC % 0 PT 12.9 INR 1.0 APTT 24.8 Sodium 139 Potassium 4.1 Chloride 105 Carbon Dioxide 23.3 Anion Gap 11 BUN 16 Creatinine 0.83 Estim Creat Clear Calc 66.83 Est GFR (MDRD) Non-Af 74 BUN/Creatinine Ratio 19.5 Glucose 112 H Calcium 9.2 Troponin T High Sens 14 Troponin T Hi Sens 2 Hr 13 NT pro BNP II 101 Radiography Diagnostic Testing: Clinical Impression(s) from Imaging Studies Chest CTA 09/15/24 11:05 IMPRESSION: 1. Central RIGHT upper and lower lobe occlusive and nonocclusive pulmonary emboli as detailed. No definite central or definite LEFT-sided pulmonary embolism allowing for limitations. 2. Mild focal ground-glass in the lateral RIGHT lower lobe could reflect a developing pulmonary infarct given the above. Pneumonia/pneumonitis is an additional consideration. 3. Mild mediastinal lymphadenopathy, nonspecific and potentially reactive in theabsence of known malignancy. Correlate with medical history and follow-up as indicated. 4. Cholecystectomy with dilatation of the CBD which may be related to post cholecystectomy effect. Correlate with serum bilirubin and consider outpatient MRCP as indicated. 5. Tiny 8 mm peripherally calcified distal splenic artery aneurysm. 6. Additional description as above. IMPRESSION: [place] Alert: Impression #1 and #2 The critical information above was relayed directly by me by telephone to Mariana Clemons on 09/15/2024 at 11:36 am MST with readback verification. Reading Location: [facility] Rhythm Strip Rhythm Strip: Sinus Rhythm Rate: 65 Ectopy: None EKG Initial EKG: Attestation: I personally reviewed and interpreted this EKG as follows: Comments: Normal sinus rhythm at a rate 65 bpm Normal axis Normal intervals Normal ST segments When compared to prior EKG on 10/09/2020, slight T wave morphology change to lead III with no other acute changes Management Discussion w/another healthcare provider: Hospitalist Discharge Plan Triage Chief Complaint: Chest Pain ED Provider: Mariana Clemons Dx/Rx/DC Orders Clinical Impression: Pulmonary embolism on right, Hypertension, Pulmonary infarction, Acute right- sided thoracic back pain, Pleurisy, Leukocytosis Prescriptions: No Action meloxicam 15 mg tablet 15 mg PO DAILY multivitamin Tablet 1 tab PO QDAY clonazepam 0.5 mg tablet 0.5 mg PO QHS Rx Instructions: administer 30 minutes before bedtime acetaminophen 500 mg capsule 500 mg PO Q8 PRN (Reason: fever or pain) cholecalciferol (vitamin D3) 10 mcg (400 unit) capsule 10 mcg PO QDAY levothyroxine [Synthroid] 100 MCG tablet 100 mcg PO DAILY hydroxychloroquine [Plaquenil] 200 MG tablet 200 mg PO QHS duloxetine 60 MG capsule 60 mg PO QHS buspirone 7.5 mg Tablet 11.25 mg PO BID Rexulti 2 mg tablet 2 mg PO DAILY psyllium husk [Daily Fiber] 0.52 gram capsule 0.52 g PO DAILY aspirin [Adult Low Dose Aspirin] 81 mg tablet,delayed release (DR/EC) 81 mg PO BID cephalexin 500 mg capsule 500 mg PO Q6H oxycodone 5 mg tablet 5 mg PO Q6H PRN (Reason: pain) gabapentin 300 mg capsule 300 mg PO TID dicyclomine 10 mg capsule 10 mg PO TID Qty: 90 0RF Creon 36,000-114,000- 180,000 unit capsule,delayed release(DR/EC) See Rx Instructions PO .COMPLEX Qty: 320 5RF Rx Instructions: take 1-2 with snacks and 2-3 with meals K86.81 omeprazole 20 mg capsule,delayed release(DR/EC) 20 mg PO DAILY Qty: 30 3RF valsartan 160 mg tablet 160 mg PO BID Qty: 180 3RF Primary Care Provider: Melissa Lopes Referrals: Melissa Lopes MD [Primary Care Provider] - Print Language: French Disposition Disposition: Acute Care Hospital [facility] What to do if you have Problems For any increased pain, shortness of breath, bleeding, nausea or vomiting, chestpain, or any unexpected problems, contact your Primary Care Provider. Call [facility] ([phone]) or report tothe closest Emergency Room. Call 911 if necessary. 09/15/24 8565 Cosigner Signature (if applicable): CC: Dr. Melissa Lopes MD ~ Signed [facility]04-07-2025 Discharge summary Author [facility] Note Date/Time September 15, 2024 3:37 pm [facility] Medical Records Department [address] [place] [address] Emergency Department Summary 09/15/24 MR#: [id number] Acct: [id number] Name: ABEL LYLES Rep #:[id number] : 1950 74 From: Mariana Morley PCP: Dr. Melissa Lopes MD Status:REG ER Location: ED HPI History of Present Illness Chief Complaint: Chest Pain Informant: patient Narrative Narrative: Patient is a 74-year-old female with history of IBS, hypothyroidism, hypertension, hyperlipidemia and recent fusion of her right ankle on August [address] Barone at the [facility]. She has been on aspirin 81 mg twice daily since then. She is nonweightbearing. She notes that this morning she developedpain under her right breast. It seems to be worse with breathing and especiallywith coughing. She had a coughing spell this morning she states was very painful. She states the cough is nonproductive. Denies any fever or recent URIsymptoms peer denies any nausea or vomiting. Denies feeling short of breath. Denies any new swelling of her leg. Denies any injury or falls. States she didhave OT today and had a shower but does not think this is related. States she felt well yesterday. Denies any history of DVT or PE. No other complaints or concerns reported at this time. Notes she has been doing with some constipation recently but denies any acute concerns with this at this time. [facility] Medical History Irritable bowel syndrome Pancreatitis Tension headache Wears hearing aid Post-menopausal History of steroid therapy Walker as ambulation aid Arthritis Anemia Back pain Difficulty swallowing Diarrhea Wears glasses Depression Anxiety Thyroid disease Unspecified diffuse connective tissue disease Easy bruising History of IBS Non-smoker Shortness of breath on exertion History of echocardiogram Cardiac murmur Hip pain, left Home Medications ?Medication ?Instructions ?Recorded ?Last Taken ?Type duloxetine 60 mg capsule,delayed 60 mg PO QHS 07/29/18 09/14/24 History release hydroxychloroquine 200 mg tablet 200 mg PO QHS arthrit is 07/29/18 09/14/24 History (Plaquenil) levothyroxine 100 mcg tablet 100 mcg PO DAILY 07/29/18 09/15/24 History (Synthroid) buspirone 7.5 mg tablet 11.25 mg PO BID 11/28/2101/02 History meloxicam 15 mg tablet 15 mg PO DAILY 12/18/2312/03 History dicyclomine 10 mg capsule 10 mg PO TID #90 caps 09/14/24 Rx acetaminophen 500 mg capsule 500 mg PO Q8 PRN fever or pain 05/12/24 09/15/24 History cholecalciferol (vitamin D3) 10 10 mcg PO QDAY 4 09/15/24 History mcg (400 unit) capsule clonazepam 0.5 mg tablet 0.5 mg PO QHS 05/12/2409/14 History multivitamin 1 tab PO QDAY 05/12/2409/15 History [id number]-[id number] See Rx Instructions PO .COMP ARUNA 05/22/24 09/15/24 Rx 36,000-114,000-180,000 unit #320 caps capsule,delay rel (Creon) omeprazole 20 mg capsule,delayed 20 mg PO DAILY #30 ca ps 07/01/24 09/15/24 Rx release valsartan 160 mg tablet 160 mg PO BID #180 tabs 08/1009/15/24 Rx aspirin 81 mg tablet,delayed 81 mg PO BID 09/15/2401/02 History release (Adult Low Dose Aspirin) brexpiprazole 2 mg tablet (Rexulti) 2 mg PO DAILY 01/0209/14/24 History cephalexin 500 mg capsule 500 mg PO Q6H 09/15/2409/14 History gabapentin 300 mg capsule 300 mg PO TID 09/15/2409/15 History oxycodone 5 mg tablet 5 mg PO Q6H PRN pain 5 09/14/24 History psyllium husk 0.52 gram capsule 0.52 g PO DAILY 09/15/24 History (Daily Fiber) Allergy/AdvReac Type Severity Reaction Status Date / Time grass pollen Allergy Mild Other Verified 05/15/24 10:10 house dust Allergy Mild Other Verified 05/15/24 10:10 oak Allergy Mild Other Verified 05/15/24 10:10 Seasonal Allergies: Uncoded Allergy Mild nasal Verified 05/15/24 10:10 congestion soap AdvReac Mild Rash Verified 05/15/24 10:10 Family History Mother Oat cell carcinoma of lung Brother Cancer Grandmother Thyroid disorder Uncle Diabetes Surgical History Hx of surgical procedure History of esophagogastroduodenoscopy (EGD) Hx of colonoscopy Hx of thumb surgery History of carpal tunnel surgery of right wrist History of carpal tunnel surgery of left wrist History of cholecystectomy History of cataract extraction History of bunionectomy History of broken nose History of hip replacement History of laminectomy History of knee replacement Social History household members: none number of children: 2 current occupational status: retired Smoking Status: Never smoker Electronic Cigarette Use: not used alcohol intake: current alcohol intake frequency: other details: occasional use substance use type: does not use ROS ROS ED Constitutional Constitutional ED: Denies chills or fever(s) ENT ENT ED: Denies rhinorrhea or sore throat Cardiovascular Cardiovascular: Reports as per HPI and chest pain; Denies palpitations Respiratory/Chest Respiratory/Chest: Reports cough; Denies dyspnea Gastrointestinal Gastrointestinal: Reports constipation; Denies nausea or vomiting Musculoskeletal Musculoskeletal: Reports other Details: Recent right foot/ankle surgery?currently nonweightbearing Integumentary Denies rash Neurologic Neurologic: Denies paresthesias or weakness Psychiatric Psychiatric: Denies anxiety Hematologic/Lymphatic Hematologic/Lymphatic: Denies easy bleeding or easy bruising EXAM Physical Exam Const Vital Signs: 09/15/24 10:47 09/15/24 12:46 09/15/24 14:00 Temperature 97.8 F Temperature Source Oral Pulse Rate 66 64 69 Respiratory Rate 21 H 19 H 15 Blood Pressure 179/52 H 167/60 H 197/64 H Blood Pressure Mean 94 95 108 Pulse Ox 96 98 97 Oxygen Delivery Method Room Air Room Air Room Air 09/15/24 15:00 Temperature 98.9 F Temperature Source Pulse Rate 68 Respiratory Rate 18 Blood Pressure 168/65 H Blood Pressure Mean 99 Pulse Ox 97 Oxygen Delivery Method Positive well nourished and well developed General Appearance ED: well developed and NAD HEENT Reports moist mucous membranes Neck supple and no JVD Chest Wall inspection of chest normal and palpation of chest normal Chest Narrative: Patient notes she has improvement with her discomfort with direct palpation to the right chest. No associated rash. No chest wall crepitus. Resp normal respiratory effort and clear to auscultation bilaterally Cardio regular rate and regular rhythm Peripheral Pulses: dorsalis pedis pulses present right 2+ Back/Spine no thoracic nor lumbar tenderness Extremity Extremity Narrative: No edema present. Compartments are soft. No palpable cords. Maximilian wrap/postoperative bandage on right foot clean and dry. Neuro oriented x3 Sensorium / Orientation: awake and alert Motor Exam: Negative for general weakness Psych mental status grossly normal Skin no rashes or lesions noted MDM MDM MDM Narrative Medical decision making narrative: Patient is a 74-year-old female who is 2 months postop from right foot/ankle arthrodesis presenting with 1 day of pleuritic right-sided chest pain and coughing. Patient appears nontoxic. Vital signs significant for hypertension but she states she recently had increased her blood pressure medicine and they have been trying to manage it outpatient. Patient given Lidoderm patch for her pain. Given her recent surgery and pleuritic chest pain high concern for pulmonary emboli. CTA of the chest is ordered as well as lab work including CBC, BNP, high- sensitivity troponin and coags. Patient does have a leukocytosis of 16.1. Remainder of her lab work is largely normal.CTA of the chest shows central rightupper and lower lobe occlusive and nonocclusive pulmonary emboli with groundglass changes to the lateral right lower lobe which could be developing pulmonary infarct versus pneumonia versus pneumonitis. Case discussed with hospitalist, Dr. Duffy. . Patient is very nervous aboutgoing home weeks where she has her maternal half-sister of a pulmonary emboli. Patient will be admitted. Is started on Eliquis and universal to the emergency room. Blood pressure is elevated emergency room however given that her diastolic is normal I suspect it is more anxiety/pain. Is given dose of fentanyl and will continue to monitor blood pressure. Discussed risk of bleeding associate with anticoagulation and patient denies any history of GI bleeding or other abnormal bleeding. Patient does have a leukocytosis. She denies any recent fever or other infectious symptoms. I suspect the leukocytosis and lung parenchymal findings are more associated with infarct and not pneumonia. This will be monitored inpatient. Lab Data Attestation: I reviewed the patient's lab results. Labs: Laboratory Results - last 24 hr 09/15/24 09/15/24 11:22 13:19 WBC 16.1 H RBC 4.43 Hgb 12.5 Hct 38.9 MCV 87.8 MCH 28.2 MCHC 32.1 RDW Std Deviation 47.3 H RDW Coeff of Mikel 14.6 Plt Count 240 MPV 10.9 Immature Gran % (Auto) 0.400 Neut % (Auto) 75.0 H Lymph % (Auto) 15.7 L Lajas % (Auto) 6.5 Eos % (Auto) 2.1 Baso % (Auto) 0.3 Absolute Neuts (auto) 12.1 H Absolute Lymphs (auto) 2.52 Nucleated RBC % 0 PT 12.9 INR 1.0 APTT 24.8 Sodium 139 Potassium 4.1 Chloride 105 Carbon Dioxide 23.3 Anion Gap 11 BUN 16 Creatinine 0.83 Estim Creat Clear Calc 66.83 Est GFR (MDRD) Non-Af 74 BUN/Creatinine Ratio 19.5 Glucose 112 H Calcium 9.2 Troponin T High Sens 14 Troponin T Hi Sens 2 Hr 13 NT pro BNP II 101 Radiography Diagnostic Testing: Clinical Impression(s) from Imaging Studies Chest CTA 09/15/24 11:05 IMPRESSION: 1. Central RIGHT upper and lower lobe occlusive and nonocclusive pulmonary emboli as detailed. No definite central or definite LEFT-sided pulmonary embolism allowing for limitations. 2. Mild focal ground-glass in the lateral RIGHT lower lobe could reflect a developing pulmonary infarct given the above. Pneumonia/pneumonitis is an additional consideration. 3. Mild mediastinal lymphadenopathy, nonspecific and potentially reactive in theabsence of known malignancy. Correlate with medical history and follow-up as indicated. 4. Cholecystectomy with dilatation of the CBD which may be related to post cholecystectomy effect. Correlate with serum bilirubin and consider outpatient MRCP as indicated. 5. Tiny 8 mm peripherally calcified distal splenic artery aneurysm. 6. Additional description as above. IMPRESSION: [place] Alert: Impression #1 and #2 The critical information above was relayed directly by me by telephone to Mariana Clemons on 09/15/2024 at 11:36 am MST with readback verification. Reading Location: [facility] Rhythm Strip Rhythm Strip: Sinus Rhythm Rate: 65 Ectopy: None EKG Initial EKG: Attestation: I personally reviewed and interpreted this EKG as follows: Comments: Normal sinus rhythm at a rate 65 bpm Normal axis Normal intervals Normal ST segments When compared to prior EKG on 10/09/2020, slight T wave morphology change to lead III with no other acute changes Management Discussion w/another healthcare provider: Hospitalist Discharge Plan Triage Chief Complaint: Chest Pain ED Provider: Mariana Clemons Dx/Rx/DC Orders Clinical Impression: Pulmonary embolism on right, Hypertension, Pulmonary infarction, Acute right- sided thoracic back pain, Pleurisy, Leukocytosis Prescriptions: No Action meloxicam 15 mg tablet 15 mg PO DAILY multivitamin Tablet 1 tab PO QDAY clonazepam 0.5 mg tablet 0.5 mg PO QHS Rx Instructions: administer 30 minutes before bedtime acetaminophen 500 mg capsule 500 mg PO Q8 PRN (Reason: fever or pain) cholecalciferol (vitamin D3) 10 mcg (400 unit) capsule 10 mcg PO QDAY levothyroxine [Synthroid] 100 MCG tablet 100 mcg PO DAILY hydroxychloroquine [Plaquenil] 200 MG tablet 200 mg PO QHS duloxetine 60 MG capsule 60 mg PO QHS buspirone 7.5 mg Tablet 11.25 mg PO BID Rexulti 2 mg tablet 2 mg PO DAILY psyllium husk [Daily Fiber] 0.52 gram capsule 0.52 g PO DAILY aspirin [Adult Low Dose Aspirin] 81 mg tablet,delayed release (DR/EC) 81 mg PO BID cephalexin 500 mg capsule 500 mg PO Q6H oxycodone 5 mg tablet 5 mg PO Q6H PRN (Reason: pain) gabapentin 300 mg capsule 300 mg PO TID dicyclomine 10 mg capsule 10 mg PO TID Qty: 90 0RF Creon 36,000-114,000- 180,000 unit capsule,delayed release(DR/EC) See Rx Instructions PO .COMPLEX Qty: 320 5RF Rx Instructions: take 1-2 with snacks and 2-3 with meals K86.81 omeprazole 20 mg capsule,delayed release(DR/EC) 20 mg PO DAILY Qty: 30 3RF valsartan 160 mg tablet 160 mg PO BID Qty: 180 3RF Primary Care Provider: Melissa Lopes Referrals: Melissa Lopes MD [Primary Care Provider] - Print Language: French Disposition Disposition: Acute Care Hospital [facility] What to do if you have Problems For any increased pain, shortness of breath, bleeding, nausea or vomiting, chestpain, or any unexpected problems, contact your Primary Care Provider. Call [facility] ([phone]) or report to the closest Emergency Room. Call 911 if necessary. 09/15/24 1537 <Electronically signed by Mariana Clemons DO> Cosigner Signature (if applicable): CC: Dr. Melissa Lopes MD ~ Signed [facility] Work Phone: [phone] 768-734204-07-2025 Radiology Diagnostic study note [facility] Imaging Services [address] [place] [address] CTA Chest W/WO Contrast MR#: [id number] Acct: [id number] Name: ABEL LYLES Rep #: [id number] : 1950 F 74 From: Lluvia Lopez MD PCP: Dr. Melissa Lopes MD Status: REG ER Study:CTA Chest W/WO Contrast Date of Exam: 09/15/24 Exam# [id number] Ordering Dr: Jessica Clemons DO PROCEDURE: CTA CHEST W/WO CONTRAST 09/15/2024 REASON FOR EXAM: RIGHT CHEST PAIN, HIGH RISK PE TECHNIQUE: CTA chest was performed with IV contrast. Multiplanar reformats and MIP reconstructions were generated. CONTRAST: Isovue 370 VOLUME: 97 mL One or more dose reduction techniques were used (e.g., Automated exposure control, adjustment of the mA and/or kV according to patient size, use of iterative reconstruction technique). RADIATION DOSE SUMMARY: CTDlvol: 11.87+ 21.37+ 14.44+ 7.12+ 14.43 mGy DLP: 923.21 mGycm COMPARISON: None FINDINGS: Exam limited by suboptimal opacification of the pulmonary arterial tree with opacification of the main pulmonary artery 2 190 Hounsfield units as compared with 352-355 within the adjacent pulmonary veins and thoracic aorta. Additional limitation related to streak artifact from densely opacified SVC, RIGHT subclavian, and RIGHT brachiocephalic veins. Heart/pericardium: Unremarkable. Aorta: Trace to mild atherosclerosis. Pulmonary arteries: Normal in caliber. RIGHT-sided pulmonary emboli are presentextending from the RIGHT mainstem bronchus into upper lobe branches, appearing occlusive in these locations. Nonocclusive and occlusive pulmonary emboli also present within RIGHT lower lobar pulmonary artery and extending into segmental/subsegmental branches no central ordefinite LEFT-sided pulmonary embolism allowing for limitations. Lymph nodes: Subcarinal node is difficult to delineate from the adjacent esophagus, roughly 13 mm short axis. Lungs/pleura: Slightly elevated RIGHT hemidiaphragm. Trace RIGHT pleural effusion. Dependent atelectasis. Mild focal ground-glass in the lateral RIGHT lower lobe. Airways: Unremarkable. Chest wall: Unremarkable. Upper abdomen: Atherosclerosis. Cholecystectomy. Dilatation of the CBD which may be related to postcholecystectomy effect. 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 Musculoskeletal: Degenerative changes of the shoulders. Multilevel spondylosis. Partially imaged spinal stimulator. Thoracolumbar scoliosis. CT/CTA Chest W/WO Contrast IMPRESSION: 1. Central RIGHT upper and lower lobe occlusive and nonocclusive pulmonary emboli as detailed. No definite central or definite LEFT-sided pulmonary embolism allowing for limitations. 2. Mild focal ground-glass in the lateral RIGHT lower lobe could reflect a developing pulmonary infarct given the above. Pneumonia/pneumonitis is an additional consideration. 3. Mild mediastinal lymphadenopathy, nonspecific and potentially reactive in theabsence of known malignancy. Correlate with medical history and follow-up as indicated. 4. Cholecystectomy with dilatation of the CBD which may be related to post cholecystectomy effect. Correlate with serum bilirubin and consider outpatient MRCP as indicated. 5. Tiny 8 mm peripherally calcified distal splenic artery aneurysm. 6. Additional description as above. IMPRESSION: [place] Alert: Impression #1 and #2 The critical information above was relayed directly by me by telephone to Mariana Clemons on 09/15/2024 at 11:36 am MST with readback verification. Reading Location: [facility] CC: Dr. Mariana Clemons DO; Dr. Melissa Lopes MD ~ Tax Professional: Signed [facility]03-21-2025 NoteHNO ID: [id number] Author: DORYS JADE, ? Service: ? Author Type: Physician Type: Progress Notes Filed: 08/29/2024 15:41 Note Text: Subjective: Patient presents to clinic c/o painful toenails. They state that the nails are especially painful with shoe gear and pressure. Patient states that nails b/l hallux are painful. No other pedal complaints at this time. Patient states no change in medications or medical history since last visit. Objective: Patient presents to clinic nonambulatory (recent triple arthrodesis of right lower extremity) Vasc: DP and PT pulses are palpable left (dressing on right foot). CFT is less than 5 seconds bilateral. Skin temperature is warm to cool proximal to distal bilateral. There is mild edema or varicosities noted. Neuro: Protective sensation is intact to the foot and toes when tested with the 5.07 SWM bilateral. The hallux is downgoing bilateral. Derm: Nails 1-5 b/l are discolored-yellow, thick, crumbly, dystrophic and with subungal debris. Skin is of normal turgor, texture and hair growth is present bilateral. There are no hyperkeratosis, ulcerations, scars, verruca or other lesions noted. Assessment: (B35.1) Onychomycosis (primary encounter diagnosis) (M79.675) Pain in toe of left foot (M79.674) Pain in toe of right foot Plan: Patient was seen and evaluated. Nails 1-5 bilateral were debrided in length and thickness. Discussed possible removal of toenail (b/l hallux) in the future if pain continues. Patient is to RTC in 3-4 months. Dorys Jade [facility]03-21-2025 History of Present illness Narrative* Dorys Jade - 08/29/2024 3:28 PM EDT Subjective: Patient presents to clinic c/o painful toenails. They state that the nails are especially painful with shoe gear and pressure. Patient states that nails b/l hallux are painful. No other pedal complaints at this time. Patient states no change in medications or medical history since last visit. Objective: Patient presents to clinic nonambulatory (recent triple arthrodesis of right lower extremity) Vasc: DP and PT pulses are palpable left (dressing on right foot). CFT is less than 5 seconds bilateral. Skin temperature is warm to cool proximal to distal bilateral. There is mild edema or varicosities noted. Neuro: Protective sensation is intact to the foot and toes when tested with the 5.07 SWM bilateral.The hallux is downgoing bilateral. Derm: Nails 1-5 b/l are discolored-yellow, thick, crumbly, dystrophic and with subungal debris. Skin is of normal turgor, texture and hair growth is present bilateral. There are no hyperkeratosis, ulcerations, scars, verruca or other lesions noted. Assessment: (B35.1) Onychomycosis (primary encounter diagnosis) (M79.675) Pain in toe of left foot (M79.674) Pain in toe of right foot Plan: Patient was seen and evaluated. Nails 1-5 bilateral were debrided in length and thickness. Discussed possible removal of toenail (b/l hallux) in the future if pain continues. Patient is to RTC in 3-4 months. Dorys Jade DPM * Ele Rodríguez LPN - 08/29/2024 3:22 PM EDT AMB ROOMING INTAKE FLOWSHEET DATA Patient presents with: Left Foot - Established Patient, Follow Up, nail care Right Foot - Established Patient, Follow Up, nail care Patient has procedure on 08/13/2024 at [facility]. Ele Rodríguez LPN documented in this encounterSelect [facility]25 NoteHNO ID: [id number] Author: ELE RODRÍGUEZ LPN Service: ? Author Type: LICENSED NURSE Type: Progress Notes Filed: 08/29/2024 15:41 Note Text: AMB ROOMING INTAKE FLOWSHEET DATA Patient presents with: Left Foot - Established Patient, Follow Up, nail care Right Foot - Established Patient, Follow Up, nail care Patient has procedure on 08/13/2024 at [facility]. [facility] History of Present illness Narrative* Marian Kilgore Mammo Tech - 08/07/2024 9:30 AM EST Radiology Service Progress Note PATIENT NAME: Abel Lyles DATE OF SERVICE: August 07, 2024 TIME: 10:38 AM PATIENT IDENTITY VERIFICATION COMPLETED USING TWO (2) IDENTIFIERS: Name and Date of confirmedby patient verbally. FALL SCREENING: Has the patient had 2 falls in the last year or 1 fall with injury or currently using an Ambulatory Assistive Device (Walker, Cane, Wheelchair, Crutches, etc.)? No PATIENT GENDER DATA: Assigned female at . status: : No status:NO. PATIENT RELEVANT IMPLANT DATA REVIEWED: Not Applicable PATIENT PRESENTS WITH AN IMPLANTABLE OR ATTACHED CONCRETE ENGINEERING TECHNICIAN: No RADIOLOGY DEPARTMENT: Mammography PERIPHERAL IV DATA: Not applicable SIGNED BY: Gabriella Can August 07, 2024 10:38 AM documented in this encounterSelect [facility] [place]02-27-2025 NoteHNO ID: [id number] Author: MARIAN KILGORE Mammo Tech Service: ? Author Type: Computer Network Specialist Type: Progress Notes Filed: 08/07/2024 10:38 Note Text: Radiology Service Progress Note PATIENT NAME: Abel Lyles DATE OF SERVICE: August 07, 2024 TIME: 10:38 AM PATIENT IDENTITY VERIFICATION COMPLETED USING TWO (2) IDENTIFIERS: Name and Date of confirmed by patient verbally. FALL SCREENING: Has the patient had 2 falls in the last year or 1 fall with injury or currently using an Ambulatory Assistive Device (Walker, Cane, Wheelchair, Crutches, etc.)? No PATIENT GENDER DATA: Assigned female at . status: : No status: NO. PATIENT RELEVANT IMPLANT DATA REVIEWED: Not Applicable PATIENT PRESENTS WITH AN IMPLANTABLE OR ATTACHED CONCRETE ENGINEERING TECHNICIAN: No RADIOLOGY DEPARTMENT: Mammography PERIPHERAL IV DATA: Not applicable SIGNED BY: Gabriella Can August 07, 2024 10:38 [facility]02-26-2025 Evaluation note* Diagnosis Onset Date Resolution Status Admit Date Irritable bowel syndrome wit h diarrhea acute August 06, 025 7:54am Pulmonary embolism acute September 15, 2024 2:48pm [facility] Work Phone: 1(815) 980-317802-26-2025 Evaluation note* Diagnosis Onset Date Resolution Status Admit Date Irritable bowel syndrome with diarrhea inactive August 06, 025 7:54am Pulmonary embolism acute September 15, 2024 2:48pm [facility] Work Phone: 1(443) 358-529502-26-2025 Evaluation note* Diagnosis Onset Date Resolution Status Admit Date Irritable bowel syndrome wit h diarrhea inactive August 06, 025 7:54am Pulmonary embolism acute September 15, 2024 2:48pm Loose stools acute October 29 7:44am Constipation resolved October 29 7:44am [facility] Work Phone: 1(164) 998-474702-26-2025 Evaluation note* Diagnosis Onset Date Resolution Status Admit Date Irritable bowel syndrome wit h diarrhea inactive August 06, 025 7:54am Pulmonary embolism acute September 15, 2024 2:48pm Loose stools acute October 29 7:44am Constipation resolved October 29 7:44am Cervical radiculopathy acute Ju ne 2024 8:53am Neck pain acute November 24 8:53am Neuropathy acute November 24 8:53am [facility] Work Phone: 1(448) 632-222902-26-2025 Evaluation note* Diagnosis Onset Date Resolution Status Admit Date Irritable bowel syndrome wit h diarrhea inactive August 06, 2 025 7:54am Pulmonary embolism acute September 15, 2024 2:48pm Loose stools acute October 29 7:44am Constipation resolved October 29 7:44am Bilateral carpal tunnel syndrome acute November 24, 2024 8:53am Cervical radiculopathy acute Ju ne 2024 8:53am Mixed connective tissue disease acute November 24, 2024 8:53am Neck pain acute November 24 8:53am Neuropathy acute November 24 8:53am Osteoarthritis acute November 24, 2024 8:53am Tremor acute November 24 8:53am [facility] Work Phone: 1(580) 859-656302-25-2025 Instructions* Patient Instructions* Catarina Fitch, POWDER ROOM ATTENDANT.TWISTHAND - 08/05/2024 1:12 PM EST TREATMENT PLAN: Increase Rexulti to 2 mg to address depressive symptoms. Consider increasing the Buspar if patient continues to experience feelings of anxiety even after the increase in Rexulti dose. Continue Cymbalta at the same dose to address anxiety symptoms. Do not take clonazepam if prescribed opioid pain medications after surgery. Continue individual psychotherapy with current provider. Follow up in 3 months or sooner if needed. For those experiencing a suicidal crisis: --call the National Suicide Prevention Lifeline at 231 (085-071-6933) --text the Crisis Text Line (text HOME to 349693) --call 389 and let them know you are having a mental health crisis or go to your nearest Emergency Room for stabilization. --You can also call Mobile Crisis at [phone]. -- You may call the department appointment line at [phone] to schedule your appointment. -- Please call my nurse at [phone] or send me a message in [employer] with any questions or concerns between appointments. documented in this encounterSelect Medical [facility] [place]02-25-2025 NoteHNO ID: [id number] Author: CATARINA FITCH APRN.CNP Service: ? Author Type: Nurse Practitioner Type: Progress Notes Filed: 08/05/2024 13:13 Note Text: FOLLOW UP - PSYCHIATRIC PROGRESS NOTE PATIENT: Abel Lyles DATE: August 05, 2024 Visit Type:In person All information is from Patient report except when noted. This evaluation is NOT intended for forensic, disability or child custody purposes. CC: Presenting today for follow up regarding psychiatric medication management. HPI: Treatment Plan from Last Visit on 07/01/2024: TREATMENT PLAN: Increase Rexulti to 1.5 mg to see if it helps with her situational depressive symptoms. Consider increase to 2 mg if needed. Continue Buspar at the same dose to address anxiety symptoms. Continue Cymbalta at the same dose to manage anxiety and mood symptoms. Utilize Clonazepam as needed to manage severe episodes of anxiety and difficulty sleeping. Continue weekly psychotherapy with her new provider. Follow up in 4 to 6 weeks. Today Abel shares that I am on a real high right now. Daughter is here from [place]. Has been able to spend time with grandson Sheldon and give him his [place] presents finally. Grandson has been sick more recently. Shares that she is happy that his parents are letting him join the theater class. Had family dinner on Sunday and really enjoyed having everyone over. Shares that taking Rexulti at bedtime has helped with the fatigue related side effect. Unable to cut the pill due to size and continued to take just 1 mg. Shares that before Angela, her daughter came to town, her mood was low. In agreement to increase the dose to 2 mg. Has her foot surgery scheduled next week. Will have to stay one night in the hospital. Daughter will stay with her for 3 months to help with the recovery process. Looks forward to a trip with daughter to [facility]. Looks forward to spending some time with daughter while she is in town. Son continues to stay away from both patient and his sister. They have had this strained relationship for 5 years now and its a big source of sorrow for the patient. Has been connecting well with the current therapy provider. Sees the provider weekly. Worries about him retiring as well due to his age. Discussed not taking clonazepam at the same time as opioid pain medication after surgery. Interval Progress: Slightly improved PATIENT DATA: Generalized Anxiety Disorder Scale (WOLFGANG-7) 06/27/2024 07/01/2024 08/01/2024 WOLFGANG - 7 SCORES Score 5 5 11 (0-4) minimal anxiety, (5-9) mild anxiety, (10-14) moderate anxiety, (15-21) severe anxiety Patient Health Questionnaire (PHQ-9) 06/27/2024 07/01/2024 08/01/2024 PHQ-9 Score 12 12 9 (0-4) minimal depression, (5-9) mild depression, (10-14) moderate depression, (15-19) moderately severe depression, (20-27) severe depression PAST MEDICAL HISTORY Diagnosis Date Hypothyroidism PMH - PAST MEDICAL HISTORY OF seasonal allergies PMH - PAST MEDICAL HISTORY OF tension headaches PMH - PAST MEDICAL HISTORY OF tension in shoulders PMH - PAST MEDICAL HISTORY OF pancreatitis PMH - PAST MEDICAL HISTORY OF ibs PMH - PAST MEDICAL HISTORY OF chronic epigastric pain PMH - PAST MEDICAL HISTORY OF reset broken nose PMH - PAST MEDICAL HISTORY OF arthritis PMH - PAST MEDICAL HISTORY OF depression PAST SURGICAL HISTORY Procedure Laterality Date ARTHRP KNE CONDYLEANDPLATU MEDIALANDLAT COMPARTMENTS Knee replacement, total, both knee's PAST SURGICAL HISTORY OF cholecystecomy PAST SURGICAL HISTORY OF stent in sphincter of ode PAST SURGICAL HISTORY OF tubal ligation PAST SURGICAL HISTORY OF right foot bunion surgery ALLERGIES Allergen Reactions Soap Rash With Ann Marie and Tide specifically. Seasonal Allergies Unknown Coughing and congestion Grass Pollen Unknown House Dust Rash Tree, [place] Rash Current Outpatient Medications on File Prior to Visit Medication Sig valsartan (DIOVAN) 160 mg tablet Take 1 tablet by mouth once daily. levothyroxine (SYNTHROID) 100 mcg tablet Take 1 tablet by mouth once daily. busPIRone (BUSPAR) 7.5 mg tablet Take 1.5 tablets by mouth two times a day. DULoxetine (CYMBALTA) 60 mg capsule Take 1 capsule by mouth once daily. brexpiprazole (REXULTI) 1 mg tablet Take 1.5 tablets by mouth once daily. clonazePAM (KLONOPIN) 0.5 mg tablet Take 1 tablet by mouth at bedtime as needed for anxiety (and sleep difficulties) for up to 30 days. omeprazole (PRILOSEC) 20 mg capsule Take 20 mg by mouth once daily. meloxicam (MOBIC) 15 mg tablet Take 15 mg by mouth once daily. dicyclomine (BENTYL) 10 mg capsule three times a day. psakyh-ohjqacmj-ndzbbdh (CREON) 36,000-114,000- 180,000 unit delayed release capsule Take by mouth three times daily with meals. hydrOXYchloroQUINE (PLAQUENIL) 200 mg tablet once daily. cholecalciferol (VITAMIN D3) 400 unit tab once daily. multivitamin tablet Ta (more content not included)...[facility] 08-05-2024 History of Present illness Narrative* Catarina Fitch APRN.TWISTHAND - 08/05/2024 11:06 AM EST Images from the original note were not included. FOLLOW UP - PSYCHIATRIC PROGRESS NOTE PATIENT: Abel Lyles DATE: August 05, 2024 Visit Type:In person All information is from Patient report except when noted. This evaluation is NOT intended for forensic, disability or child custody purposes. CC: Presenting today for follow up regarding psychiatric medication management. HPI: Treatment Plan from Last Visit on 07/01/2024: TREATMENT PLAN: Increase Rexulti to 1.5 mg to see if it helps with her situational depressive symptoms. Consider increase to 2 mg if needed. Continue Buspar at the same dose to address anxiety symptoms. Continue Cymbalta at the same dose to manage anxiety and mood symptoms. Utilize Clonazepam as needed to manage severe episodes of anxiety and difficulty sleeping. Continue weekly psychotherapy with her new provider. Follow up in 4 to 6 weeks. Today Abel shares that I am on a real high right now. Daughter is here from [place]. Has been able to spend time with grandson Sheldon and give him his [place] presents finally. Grandson has been sick more recently. Shares that she is happy that his parents are letting him join the theater class. Had family dinner on Wagner and really enjoyed having everyone over. Shares that taking Rexulti at bedtime has helped with the fatigue related side effect. Unable to cut the pill due to size and continued to take just 1 mg. Shares that before Angela, her daughter came to town, her mood was low. In agreement to increase the dose to 2 mg. Has her foot surgery scheduled next week. Will have to stay one night in the hospital. Daughter will stay with her for 3 months to help with the recovery process. Looks forward to a trip with daughter to [facility]. Looks forward to spending some time with daughter while she is in town. Son continues to stay away from both patient and his sister. They have had this strained relationship for 5 years now and its a big source of sorrow for the patient. Has been connecting well with the current therapy provider. Sees the provider weekly. Worries about him retiring as well due to his age. Discussed not taking clonazepam at the same time as opioid pain medication after surgery. Interval Progress: Slightly improved PATIENT DATA: Generalized Anxiety Disorder Scale (WOLFGANG-7) 06/27/2024 07/01/2024 08/01/2024 WOLFGANG - 7 SCORES Score 5 5 11 (0-4) minimal anxiety, (5-9) mild anxiety, (10-14) moderate anxiety, (15-21) severe anxiety Patient Health Questionnaire (PHQ-9) 06/27/2024 07/01/2024 08/01/2024 PHQ-9 Score 12 12 9 (0-4) minimal depression, (5-9) mild depression, (10-14) moderate depression, (15-19) moderately severe depression, (20-27) severe depression PAST MEDICAL HISTORY Diagnosis Date Hypothyroidism PMH - PAST MEDICAL HISTORY OF seasonal allergies PMH - PAST MEDICAL HISTORY OF tension headaches PMH - PAST MEDICAL HISTORY OF tension in shoulders PMH - PAST MEDICAL HISTORY OF pancreatitis PMH - PAST MEDICAL HISTORY OF ibs PMH - PAST MEDICAL HISTORY OF chronic epigastric pain PMH - PAST MEDICAL HISTORY OF reset broken nose PMH - PAST MEDICAL HISTORY OF arthritis PMH - PAST MEDICAL HISTORY OF depression PAST SURGICAL HISTORY Procedure Laterality Date ARTHRP KNE CONDYLE&PLATU MEDIAL&LAT COMPARTMENTS Knee replacement, total, both knee's PAST SURGICAL HISTORY OF cholecystecomy PAST SURGICAL HISTORY OF stent in sphincter of ode PAST SURGICAL HISTORY OF tubal ligation PAST SURGICAL HISTORY OF right foot bunion surgery ALLERGIES Allergen Reactions Soap Rash With Ann Marie and Tide specifically. Seasonal Allergies Unknown Coughing and congestion Grass Pollen Unknown House Dust Rash Tree, [place] Rash Current Outpatient Medications on File Prior to Visit Medication Sig valsartan (DIOVAN) 160 mg tablet Take 1 tablet by mouth once daily. levothyroxine (SYNTHROID) 100 mcg tablet Take 1 tablet by mouth once daily. busPIRone (BUSPAR) 7.5 mg tablet Take 1.5 tablets by mouth two times a day. DULoxetine (CYMBALTA) 60 mg capsule Take 1 capsule by mouth once daily. brexpiprazole (REXULTI) 1 mg tablet Take 1.5 tablets by mouth once daily. clonazePAM (KLONOPIN) 0.5 mg tablet Take 1 tablet by mouth at bedtime as needed for anxiety (and sleep difficulties) for up to 30 days. omeprazole (PRILOSEC) 20 mg capsule Take 20 mg by mouth once daily. meloxicam (MOBIC) 15 mg tablet Take 15 mg by mouth once daily. dicyclomine (BENTYL) 10 mg capsule three times a day. sdkbxj-mzdnexhs-kkdzrte (CREON) 36,000-114,000- 180,000 unit delayed release capsule Take by mouth three times daily with meals. hydrOXYchloroQUINE (PLAQUENIL) 200 mg tablet once daily. cholecalciferol (VITAMIN D3) 400 unit tab once daily. multivitamin tablet Take 1 tablet by mouth once daily. acetaminophen (TYLENOL) 500 mg tablet Take by mouth every 8 hours as needed. gabapentin (NEURONTIN) 300 mg capsule Take 400 mg by mouth three times daily. No current facility-administered medications on file prior to visit. ROS: See HPI PFSH: See HPI VITAL SIGNS: 08/05/24 1052 BP: 126/76 Pulse: (!) 55 SpO2: 94% Weight: 101.2 kg (223 lb) Last 3 Encounter BP Readings: Date: BP: 08/05/2024 126/76 07/28/2024 132/80 04/29/2024 160/50 MENTAL STATUS EXAMINATION: Appearance: Well dressed, well groomed Behavior: Behaves appropriately during the encounter Social relatedness: Euthymic Speech/Language: The patient demonstrates appropriate tone, prosody, carlton, phonetics, and syntax Mood: euthymic Affect: Full and appropriate to topic Orientation: Person, Place, Time and Situation Associations: Intact and linear Hallucinations: None Delusions: None Suicidal Ideation: No suicidal ideation, intent or plan. Homicidal Ideation: No homicidal ideation, intent or plan. Insight: Appropriate Judgment: Appropriate DATA REVIEWED: Psychiatric scales, Electronic medical record, and The PDMP report was reviewed and found to be appropriate without any signs of misuse or diversion. DIAGNOSIS: Major depressive disorder, recurrent episode, moderate (hcc) (primary encounter diagnosis) Wolfgang (generalized anxiety disorder) Encounter for long-term (current) use of medications Psychosocial stressors GAF: -70-61 Some mild symptoms or some difficulty in social, occupational, or school functioning, but generally functioning pretty well. TREATMENT PLAN: Increase Rexulti to 2 mg to address depressive symptoms. Consider increasing the Buspar if patient continues to experience feelings of anxiety even after the increase in Rexulti dose. Continue Cymbalta at the same dose to address anxiety symptoms. Do not take clonazepam if prescribed opioid pain medications after surgery. Continue individual psychotherapy with current provider. Follow up in 3 months or sooner if needed. MEDICATION CHANGES: Prescriptions given See above. Patient denies any involuntary movement related side effects. Risks and benefits of the medication, including any black box warnings, were discussed with the patient. Patient is aware to reach out with any questions, concerns, or worsening of symptoms prior to the next appointment. Patient educated on risks of substance use in combination with medications and advised that any substance use along with medications may alter their effectiveness. Follow Up: See Treatment Plan Medical Decision Making: Problems: Moderate: 1+ chronic illnesses with change and 2+ stable chronic illnesses Data: Unique source(s) for external note(s) reviewed: 3+ Unique test result(s) reviewed: 3+ Independent interpretation of test from other physician/QHCP Risk: Moderate: Moderate risk from testing/treatment and Drug management Medical Decision Making Level: 4 - Moderate ADD ON PSYCHOTHERAPY CODE : No SIGNATURE: Catarina Fitch APRN.CNP PATIENT NAME: Abel Lyles DATE: August 05, 2024 TIME: 11:06 AM documented in this encounterSelect [facility] [place]-23-2025 Instructions* Patient Instructions* Melissa Lopes MD - 08/03/2024 1:49 PM EST Screening schedule The following prevention plan is recommended: Hepatitis C Screening Never done Influenza Vaccine(1) due on 02/10/2024 Covid-19 Vaccine( season) due on 02/10/2024 Mammogram Screening due on 08/06/2024 WHAT YOU CAN DO TO PREVENT FALLS Many falls can be prevented. By making some changes, you can lower your chances of falling. Four things YOU can do to prevent falls for you* and your caregiver 1. Begin a regular exercise program Exercise is one of the most important ways to lower your chances of falling. It makes you stronger and helps you feel better. Exercises that improve balance and coordination (like Jian Chi) are the most helpful. Lack of exercise leads to weakness and increases your chances of falling. Ask your doctor or health care provider about the best type of exercise program for you. 2. Have your health care provider review your medicines Have your doctor or pharmacist review all the medicines you take, even nveh-vfa-tekwwhv medicines. As you get older, the way medicines work in your body can change. Some medicines, or combinations of medicines, can make you sleepy or dizzy andcan cause you to fall. 3. Have your vision checked Have your eyes checked by an eye doctor at least once a year. You may be wearing the wrong glasses or have a condition like glaucoma or cataracts that limits your vision. Poor vision can increase your chances of falling. 4. Make your home safer About half of all falls happen at home. To make your home safer: Remove things you can trip over (like papers, books, clothes, and shoes) from stairs and places where you walk. Remove small throw rugs or use double-sided tape to keep the rugs from slipping. Keep items you use often in cabinets you can reach easily without using a step stool. Have grab bars put in next to your toilet and in the tub or shower. Use non-slip mats in the bathtub and on shower floors. Improve the lighting in your home. As you get older, you need brighter lights to see well. Hang light-weight curtains or shades to reduce glare. Have handrails and lights put in on all staircases. Wear shoes both inside and outside the house. Avoid going barefoot or wearing slippers. For more information, contact: Centers for Disease Control and Prevention www.cdc.gov/injury * This information may not apply if you have certain medical conditions. documented in this encounterSelect Medical Specialty [facility] [place]02-23-2025 NoteHNO ID: [id number] Author: MELISSA LOPES MD Service: ? Author Type: Physician Type: Progress Notes Filed: 08/03/2024 13:50 Note Text: Subjective Abel Lyles is a 74 year old female. Abel presents today for her annual Medicare wellness visit. Additionally she follows up for multiple medical problems. See list. Her chronic medical problems been stable. Her blood pressures been under good control on her current medication. TSH has been therapeutic on her current regimen for treatment of her hypothyroidism. Mood and anxiety improved on current medications. She is tolerating this well. She remains on Creon for treatment of pancreatic insufficiency. She has had improved symptoms. And decreased diarrhea. Reflux symptoms are improved on Prilosec. She is followed by rheumatology for her inflammatory polyarthritis. Review of Systems Constitutional: Negative. HENT: Negative. Eyes: Negative. Respiratory: Negative. Cardiovascular: Negative. Gastrointestinal: Negative. Endocrine: Negative. Genitourinary: Negative. Musculoskeletal: Negative. Skin: Negative. Allergic/Immunologic: Negative. Neurological: Negative. Hematological: Negative. Psychiatric/Behavioral: Negative. PAST SURGICAL HISTORY Procedure Laterality Date ARTHRP KNE CONDYLEANDPLATU MEDIALANDLAT COMPARTMENTS Knee replacement, total, both knee's PAST SURGICAL HISTORY OF cholecystecomy PAST SURGICAL HISTORY OF stent in sphincter of ode PAST SURGICAL HISTORY OF tubal ligation PAST SURGICAL HISTORY OF right foot bunion surgery PAST MEDICAL HISTORY Diagnosis Date Hypothyroidism PMH - PAST MEDICAL HISTORY OF seasonal allergies PMH - PAST MEDICAL HISTORY OF tension headaches PMH - PAST MEDICAL HISTORY OF tension in shoulders PMH - PAST MEDICAL HISTORY OF pancreatitis PMH - PAST MEDICAL HISTORY OF ibs PMH - PAST MEDICAL HISTORY OF chronic epigastric pain PMH - PAST MEDICAL HISTORY OF reset broken nose PMH - PAST MEDICAL HISTORY OF arthritis PMH - PAST MEDICAL HISTORY OF depression FAMILY HISTORY Problem Relation Age of Onset Cancer Mother lung related to smoking None Father unknown GI Brother gallbladder removed GI Brother other brother on disability unknown why Cancer Brother Testicular Thyroid Maternal Grandmother Diabetes Maternal Uncle Diabetes Maternal Uncle Social History Tobacco Use Smoking status: Never Passive exposure: Never Smokeless tobacco: Never Vaping Use Vaping status: Never Used Substance Use Topics Alcohol use: Yes Comment: occassionally Drug use: Never ALLERGIES Allergen Reactions Soap Rash With Ann Marie and Tide specifically. Seasonal Allergies Unknown Coughing and congestion Grass Pollen Unknown House Dust Rash Tree, [place] Rash MEDICATIONS: valsartan (DIOVAN) 160 mg tablet Take 1 tablet by mouth once daily. busPIRone (BUSPAR) 7.5 mg tablet Take 1.5 tablets by mouth two times a day. DULoxetine (CYMBALTA) 60 mg capsule Take 1 capsule by mouth once daily. brexpiprazole (REXULTI) 1 mg tablet Take 1.5 tablets by mouth once daily. clonazePAM (KLONOPIN) 0.5 mg tablet Take 1 tablet by mouth at bedtime as needed for anxiety (and sleep difficulties) for up to 30 days. omeprazole (PRILOSEC) 20 mg capsule Take 20 mg by mouth once daily. meloxicam (MOBIC) 15 mg tablet Take 15 mg by mouth once daily. dicyclomine (BENTYL) 10 mg capsule three times a day. qblwus-gsdyihdm-qckrbot (CREON) 36,000-114,000- 180,000 unit delayed release capsule Take by mouth three times daily with meals. hydrOXYchloroQUINE (PLAQUENIL) 200 mg tablet once daily. cholecalciferol (VITAMIN D3) 400 unit tab once daily. multivitamin tablet Take 1 tablet by mouth once daily. acetaminophen (TYLENOL) 500 mg tablet Take by mouth every 8 hours as needed. gabapentin (NEURONTIN) 300 mg capsule Take 400 mg by mouth three times daily. levothyroxine (SYNTHROID) 100 mcg tablet Take 1 tablet by mouth once daily. Allergies, past surgical history, family history and past medical history were reviewed per this encounter. Medications were reviewed and verified. 07/21/2024 08/01/2024 INTAKE PAIN ASSESSMENT Are you having pain associated with your visit today? No No If pain assessment is 0, no action needed. If pain assessment is positive, please see assessment and plain. Objective BP 132/80 (BP Site: Left Arm, BP Position: Sitting, BP Cuff Size: Regular Adult) Pulse 68 Temp 36.1 ?C (96.9 ?F) (Temporal) Resp 18 Ht 160 cm (5' 3) Wt 102.1 kg (225 lb) SpO2 97% BMI 39.86 kg/m? Physical Exam Vitals reviewed. Constitutional: Appearance: Normal appearance. HENT: Head: Normocephalic and atraumatic. Nose: Nose normal. Eyes: Extraocular Movements: Extraocular movements intact. Pupils: Pupils are equal, round, and reactive to light. Cardiovascular: Rate and Rhythm: Normal rate and regular rhythm. Pulmonary: Effort: Pulmonary e (more content not included)...[facility]02-23-2025 History of Present illness Narrative* Melissa Lopes MD - 08/03/2024 1:43 PM EST Images from the original note were not included. Subjective Abel Lyles is a 74 year old female. Abel presents today for her annual Medicare wellness visit. Additionally she follows up for multiple medical problems. See list. Her chronic medical problemsbeen stable. Her blood pressures been under good control on her current medication. TSH has been therapeutic on her current regimen for treatment of her hypothyroidism. Mood and anxiety improved on current medications. She is tolerating this well. She remains on Creon for treatment of pancreatic insufficiency. She has had improved symptoms. And decreased diarrhea. Reflux symptoms are improved on Prilosec. She is followed by rheumatology for her inflammatory polyarthritis. Review of Systems Constitutional: Negative. HENT: Negative. Eyes: Negative. Respiratory: Negative. Cardiovascular: Negative. Gastrointestinal: Negative. Endocrine: Negative. Genitourinary: Negative. Musculoskeletal: Negative. Skin: Negative. Allergic/Immunologic: Negative. Neurological: Negative. Hematological: Negative. Psychiatric/Behavioral: Negative. PAST SURGICAL HISTORY Procedure Laterality Date ARTHRP KNE CONDYLE&PLATU MEDIAL&LAT COMPARTMENTS Knee replacement, total, both knee's PAST SURGICAL HISTORY OF cholecystecomy PAST SURGICAL HISTORY OF stent in sphincter of ode PAST SURGICAL HISTORY OF tubal ligation PAST SURGICAL HISTORY OF right foot bunion surgery PAST MEDICAL HISTORY Diagnosis Date Hypothyroidism PMH - PAST MEDICAL HISTORY OF seasonal allergies PMH - PAST MEDICAL HISTORY OF tension headaches PMH - PAST MEDICAL HISTORY OF tension in shoulders PMH - PAST MEDICAL HISTORY OF pancreatitis PMH - PAST MEDICAL HISTORY OF ibs PMH - PAST MEDICAL HISTORY OF chronic epigastric pain PMH - PAST MEDICAL HISTORY OF reset broken nose PMH - PAST MEDICAL HISTORY OF arthritis PMH - PAST MEDICAL HISTORY OF depression FAMILY HISTORY Problem Relation Age of Onset Cancer Mother lung related to smoking None Father unknown GI Brother gallbladder removed GI Brother other brother on disability unknown why Cancer Brother Testicular Thyroid Maternal Grandmother Diabetes Maternal Uncle Diabetes Maternal Uncle Social History Tobacco Use Smoking status: Never Passive exposure: Never Smokeless tobacco: Never Vaping Use Vaping status: Never Used Substance Use Topics Alcohol use: Yes Comment: occassionally Drug use: Never ALLERGIES Allergen Reactions Soap Rash With Ann Marie and Tide specifically. Seasonal Allergies Unknown Coughing and congestion Grass Pollen Unknown House Dust Rash Tree, [place] Rash MEDICATIONS: valsartan (DIOVAN) 160 mg tablet Take 1 tablet by mouth once daily. busPIRone (BUSPAR) 7.5 mg tablet Take 1.5 tablets by mouth two times a day. DULoxetine (CYMBALTA) 60 mg capsule Take 1 capsule by mouth once daily. brexpiprazole (REXULTI) 1 mg tablet Take 1.5 tablets by mouth once daily. clonazePAM (KLONOPIN) 0.5 mg tablet Take 1 tablet by mouth at bedtime as needed for anxiety (and sleep difficulties) for up to 30 days. omeprazole (PRILOSEC) 20 mg capsule Take 20 mg by mouth once daily. meloxicam (MOBIC) 15 mg tablet Take 15 mg by mouth once daily. dicyclomine (BENTYL) 10 mg capsule three times a day. nsxclm-xifjxbnv-pdxoeow (CREON) 36,000-114,000- 180,000 unit delayed release capsule Take by mouth three times daily with meals. hydrOXYchloroQUINE (PLAQUENIL) 200 mg tablet once daily. cholecalciferol (VITAMIN D3) 400 unit tab once daily. multivitamin tablet Take 1 tablet by mouth once daily. acetaminophen (TYLENOL) 500 mg tablet Take by mouth every 8 hours as needed. gabapentin (NEURONTIN) 300 mg capsule Take 400 mg by mouth three times daily. levothyroxine (SYNTHROID) 100 mcg tablet Take 1 tablet by mouth once daily. Allergies, past surgical history, family history and past medical history were reviewed per this encounter. Medications were reviewed and verified. 07/21/2024 08/01/2024 INTAKE PAIN ASSESSMENT Are you having pain associated with your visit today? No No If pain assessment is 0, no action needed. If pain assessment is positive, please see assessment and plain. Objective BP 132/80 (BP Site: Left Arm, BP Position: Sitting, BP Cuff Size: Regular Adult) Pulse 68 Temp 36.1 C (96.9 F) (Temporal) Resp 18 Ht 160 cm (5' 3) Wt 102.1 kg (225 lb) SpO2 97% BMI 39.86 kg/m Physical Exam Vitals reviewed. Constitutional: Appearance: Normal appearance. HENT: Head: Normocephalic and atraumatic. Nose: Nose normal. Eyes: Extraocular Movements: Extraocular movements intact. Pupils: Pupils are equal, round, and reactive to light. Cardiovascular: Rate and Rhythm: Normal rate and regular rhythm. Pulmonary: Effort: Pulmonary effort is normal. Breath sounds: Normal breath sounds. Abdominal: General: Bowel sounds are normal. Palpations: Abdomen is soft. Musculoskeletal: General: Normal range of motion. Cervical back: Normal range of motion and neck supple. Skin: General: Skin is warm and dry. Capillary Refill: Capillary refill takes less than 2 seconds. Neurological: General: No focal deficit present. Mental Status: She is alert and oriented to person, place, and time. Mental status is at baseline. Psychiatric: Mood and Affect: Mood normal. Behavior: Behavior normal. Procedures Assessment and Plan Encounter Diagnosis ICD-10-CM 1. Wellness examination Z00.00 COMPREHENSIVE METABOLIC PANEL 2. Encounter for counseling regarding advance directives Z71.89 ADVANCE CARE PLAN DISCUSSION 3. Encounter for screening examination for other mental health and behavioral disorders Z13.39 ANXIETY SCREENING 4. Encounter for screening mammogram for breast cancer Z12.31 HEATHER SCREENING W MILI 5. Acquired hypothyroidism E03.9 THYROID STIMULATING HORMONE Stable. Recheck TSH. Adjust dose as needed. 6. Screening for deficiency anemia Z13.0 COMPLETE BLOOD COUNT AND DIFFERENTIAL 7. Lipid screening Z13.220 LIPID PANEL BASIC 8. Hypertension, essential I10 COMPREHENSIVE METABOLIC PANEL Blood pressure improved and stable on current medication. Continue present medications. Check bloodpressure regularly 9. Exocrine pancreatic insufficiency K86.81 Stable on Creon All open preventative health maintenance topics discussed with patient in detail. This includes risks and benefits regarding vaccines, cancer screening, healthy life style, and diet. Continue present medications. Check labs as above. Monitor blood pressure regularly. Exercise as tolerated. Maintain good diet. Follow-up in 6 months. Medicare Health Risk Assessment General Health Fair Exercise: Minutes/Day 0 min Exercise: Days/Week 0 days Alcohol: Daily Use Monthly or less Alcohol: Drinks/Day 1 or 2 Alcohol: 6 or more drinks Never Feel off balance Yes Concerns: Teeth/Dentures No Concerns: Sexual function No Troubled by feelings Anxious; Lonely Frequency: Eating healthy diet More than half the days ADLs requiring help Safety precautions in home/vehicle Yes Smoke, vape, chews tobacco No Difficulty hearing Yes, I wear a hearing aid Difficulty seeing No Current Providers Specialists: I have reviewed specialist-related care of the patient in the medical record. Medical/Family history review Reviewed and updated problem list, medical/surgical/family/social history, medications, and allergies. Opioid use review Opioid Medications (last 90 days) No data to display Anxiety/Depression screening PHQ-2 Score: 2 (Lower risk for depression) WOLFGANG-2 Score: 0 (Lower risk for anxiety) Recommendation: no further intervention at this time Cognitive screening Mini Cog Score: 5 Cognitive screening reviewed and No further action needed (score 3-5). Functional Observation Was the patient's Timed Up & Go test unsteady or >= 12 seconds? No Advance Care Planning Surrogate decision maker documented and/or advance directives scanned in chart Measurements BP 132/80 (BP Site: Left Arm, BP Position: Sitting, BP Cuff Size: Regular Adult) Pulse 68 Temp 36.1 C (96.9 F) (Temporal) Resp 18 Ht 160 cm (5' 3) Wt 102.1 kg (225 lb) SpO2 97% BMI 39.86 kg/m Vision Screening: Follows with optometry/ophthalmology Assessment/Plan Medicare annual wellness visit, subsequent (Z00.00) - Counseled on healthy diet and regular exercise - Fall avoidance information provided - Personalized prevention plan provided * Mario Frye LPN - 07/28/2024 11:20 AM EST DUE HEALTH MAINTENANCE Hepatitis C Screening declined Bone Density Screening [facility] Completed Influenza Vaccine(1) [facility] Covid-19 Vaccine( season) [facility] [place] Mammogram Screening due on 08/06/2024 - ordered Participation of a fellow, resident, medical student, or advanced practice provider student in performing the sensitive examination was discussed with the patient or authorized leather goods sales representative. The patient or authorized leather goods sales representative has agreed to proceed with the sensitive examination. (Sensitive examination includes inspection and/or palpation of the breasts, pelvis, prostate and anorectal regions) Mario Frye LPN July 28, 2024 11:31 AM documented in [facility] NoteHNO ID: [id number] Author: MARIO FRYE LPN Service: ? Author Type: LICENSED NURSE Type: Progress Notes Filed: 08/03/2024 13:50 Note Text: DUE HEALTH MAINTENANCE Hepatitis C Screening declined Bone Density Screening [facility] Completed Influenza Vaccine(1) [facility] Covid-19 Vaccine( season) [facility] [place] Mammogram Screening due on 08/06/2024 - ordered Participation of a fellow, resident, medical student, or advanced practice provider student in performing the sensitive examination was discussed with the patient or authorized leather goods sales representative. The patient or authorized leather goods sales representative has agreed to proceed with the sensitive examination. (Sensitive examination includes inspection and/or palpation of the breasts, pelvis, prostate and anorectal regions) Mario Frye LPN July 28, 2024 11:31 [facility]01-31-2025 Instructions* Patient Instructions* Catarina Fitch, POWDER ROOM ATTENDANT.TWISTHAND - 07/11/2024 4:06 PM EST TREATMENT PLAN: Increase Rexulti to 1.5 mg to see if it helps with her situational depressive symptoms. Consider increase to 2 mg if needed. Continue Buspar at the same dose to address anxiety symptoms. Continue Cymbalta at the same dose to manage anxiety and mood symptoms. Utilize Clonazepam as needed to manage severe episodes of anxiety and difficulty sleeping. Continue weekly psychotherapy with her new provider. Follow up in 4 to 6 weeks. For those experiencing a suicidal crisis: --call the National Suicide Prevention Lifeline at 123 (294-636-3889) --text the Crisis Text Line (text HOME to 894476) --call 161 and let them know you are having a mental health crisis or go to your nearest Emergency Room for stabilization. --You can also call Mobile Crisis at [phone]. -- You may call the department appointment line at [phone] to schedule your appointment. -- Please call my nurse at [phone] or send me a message in [employer] with any questions or concerns between appointments. documented in this encounterSelect [facility] [place]25 NoteHNO ID: [id number] Author: CATARINA FITCH APRN.LINDA Service: ? Author Type: Nurse Practitioner Type: Progress Notes Filed: 07/11/2024 16:06 Note Text: FOLLOW UP - PSYCHIATRIC PROGRESS NOTE PATIENT: Abel Lyles DATE: July 01, 2024 Visit Type: Virtual Visit utilizing two-way audio and video for at least a portion of the visit. Consent for virtual visit obtained verbally. Confidentiality limitations with virtual visits reviewed with the patient and guardian, if present, who have accepted the risk verbally prior to proceeding with encounter. I have communicated my name and active licensure. The patient's identity and physical location were verified at the time of this visit. Either the patient or their legal leather goods sales representative has been informed of the risks and benefits of -- and alternatives to -- treatment through a remote evaluation and consents to proceed with the evaluation remotely. All information is from Patient report except when noted. This evaluation is NOT intended for forensic, disability or child custody purposes. CC: Presenting today for follow up regarding psychiatric medication management. HPI: Treatment Plan from Last Visit on 04/29/2024: TREATMENT PLAN: Continue Rexulti and Cymbalta at current doses Increase Buspar to 1.5 tablets 2 times per day to address anxiety symptoms. Continue Klonopin as needed for racing thoughts at bedtime that interfere with falling asleep. Resume psychotherapy once Dr. Becker returns. Follow up in 2 months. Today Abel shares that the increase in Buspar has been helpful. I am just going through some tough things with my son and its not going well. Shares that son sent her a very inappropriate [employer] card. Son is allowing her grandson to join acting class and patient is happy about it. Has not been able to see grandson Max and give him his [place] presents. It was hard for her to spend the [place] day alone. Her therapist Dr. Becker retired and she has been assigned to a new therapist. We are still in the getting to know each other phase. Feels that this change has been going well. Sees her therapist on . She has been attending the grief group at [employer]. All the members are widows or widowers but they also talk about other losses. Her has been gone for 7 years now and she continues to grieve him. She has been able to talk about her loss related to her relationship with her son in this grief group. Finds a lot of benefit from this group than she thought she would initially. Shares that her mood is alright even without the Lamictal. The increase in Buspar has been helpful. 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 Has noticed that others her age are also struggling with the same memory concerns as her and this makes her feel better. Able to differentiate and recognize some of her memory concerns as age based. Struggling with motivation and getting things done. The big issue with me is why bother. She is still trying to get an intervention for her right foot. Her daughter Jean Marie is going to come and help her after the procedure. Struggling to get things done that she has to in preparation of her daughter's visit. Has only used the klonopin a few times to calm down at night to go to sleep. Sometimes she gets into a bad cycle of not being able to fall asleep. Interval Progress: Slightly worse due to psychosocial stress with son. PATIENT DATA: Generalized Anxiety Disorder Scale (WOLFGANG-7) 04/28/2024 06/27/2024 07/01/2024 WOLFGANG - 7 SCORES Score 11 5 5 (0-4) minimal anxiety, (5-9) mild anxiety, (10-14) moderate anxiety, (15-21) severe anxiety Patient Health Questionnaire (PHQ-9) 04/28/2024 06/27/2024 07/01/2024 PHQ-9 Score 11 12 12 (0-4) minimal depression, (5-9) mild depression, (10-14) moderate depression, (15-19) moderately severe depression, (20-27) severe depression PAST MEDICAL HISTORY Diagnosis Date Hypothyroidism PMH - PAST MEDICAL HISTORY OF seasonal allergies PMH - PAST MEDICAL HISTORY OF tension headaches PMH - PAST MEDICAL HISTORY OF tension in shoulders PMH - PAST MEDICAL HISTORY OF pancreatitis PMH - PAST MEDICAL HISTORY OF ibs PMH - PAST MEDICAL HISTORY OF chronic epigastric pain PMH - PAST MEDICAL HISTORY OF reset broken nose PMH - PAST MEDICAL HISTORY OF arthritis PMH - PAST MEDICAL HISTORY OF depression PAST SURGICAL HISTORY Procedure Laterality Date ARTHRP KNE CONDYLEANDPLATU MEDIALANDLAT COMPARTMENTS Knee replacement, total, both knee's PAST SURGICAL HISTORY OF cholecystecomy PAST SURGICAL HISTORY OF stent in sphincter of ode PAST SURGICAL HISTORY OF tubal ligation PAST SURGICAL HISTORY OF right foot bunion surgery ALLERGIES Allergen Reactions Soap Rash With Ann Marie and Tide specifically. Seasonal Allergies Unknown Coughing and congestion Grass Pollen Unknown House Dust Rash Tree, [place] Rash Curr (more content not included)...[facility]01-21-2025 History of Present illness Narrative* Catarina Fitch, POWDER ROOM ATTENDANT.TWISTHAND - 07/01/2024 8:07 AM EST Images from the original note were not included. FOLLOW UP - PSYCHIATRIC PROGRESS NOTE PATIENT: Abel Lyles DATE: July 01, 2024 Visit Type: Virtual Visit utilizing two-way audio and video for at least a portion of the visit. Consent for virtual visit obtained verbally. Confidentiality limitations with virtual visits reviewed with the patient and guardian, if present, who have accepted the risk verbally prior to proceeding wi th encounter. I have communicated my name and active licensure. The patient's identity and physicallocation were verified at the time of this visit. Either the patient or their legal leather goods sales representative has been informed of the risks and benefits of -- and alternatives to -- treatment through a remote evaluation and consents to proceed with the evaluation remotely. All information is from Patient report except when noted. This evaluation is NOT intended for forensic, disability or child custody purposes. CC: Presenting today for follow up regarding psychiatric medication management. HPI: Treatment Plan from Last Visit on 04/29/2024: TREATMENT PLAN: Continue Rexulti and Cymbalta at current doses Increase Buspar to 1.5 tablets 2 times per day to address anxiety symptoms. Continue Klonopin as needed for racing thoughts at bedtime that interfere with falling asleep. Resume psychotherapy once Dr. Becker returns. Follow up in 2 months. Today Abel shares that the increase in Buspar has been helpful. I am just going through some tough things with my son and its not going well. Shares that son sent her a very inappropriate [employer] card. Son is allowing her grandson to join acting class and patient is happy about it. Has not been able to see grandson Sheldon and give him his [place] presents. It was hard for her to spend the [place] day alone. Her therapist Dr. Becker retired and she has been assigned to a new therapist. We are still in the getting to know each other phase. Feels that this change has been going well.Sees her therapist on . She has been attending the grief group at [employer]. All the members are widows or widowers but they also talk about other losses. Her has been gone for 7 years now and she continues to grieve him. She has been able to talk about her loss related to her relationship with her son in this grief group. Finds a lot of benefit from this group than she thought she would initially. Shares that her mood is alright even without the Lamictal. The increase in Buspar has been helpful. 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 Has noticed that others her age are also struggling with the same memory concerns as her and this makes her feel better. Able to differentiate and recognize some of her memory concerns as age based. Struggling with motivation and getting things done. The big issue with me is why bother. She is still trying to get an intervention for her right foot. Her daughter Jean Marie is going to come and help her after the procedure. Struggling to get things done that she has to in preparation of her daughter's visit. Has only used the klonopin a few times to calm down at night to go to sleep. Sometimes she gets into a bad cycle of not being able to fall asleep. Interval Progress: Slightly worse due to psychosocial stress with son. PATIENT DATA: Generalized Anxiety Disorder Scale (WOLFGANG-7) 04/28/2024 06/27/2024 07/01/2024 WOLFGANG - 7 SCORES Score 11 5 5 (0-4) minimal anxiety, (5-9) mild anxiety, (10-14) moderate anxiety, (15-21) severe anxiety Patient Health Questionnaire (PHQ-9) 04/28/2024 06/27/2024 07/01/2024 PHQ-9 Score 11 12 12 (0-4) minimal depression, (5-9) mild depression, (10-14) moderate depression, (15-19) moderately severe depression, (20-27) severe depression PAST MEDICAL HISTORY Diagnosis Date Hypothyroidism PMH - PAST MEDICAL HISTORY OF seasonal allergies PMH - PAST MEDICAL HISTORY OF tension headaches PMH - PAST MEDICAL HISTORY OF tension in shoulders PMH - PAST MEDICAL HISTORY OF pancreatitis PMH - PAST MEDICAL HISTORY OF ibs PMH - PAST MEDICAL HISTORY OF chronic epigastric pain PMH - PAST MEDICAL HISTORY OF reset broken nose PMH - PAST MEDICAL HISTORY OF arthritis PMH - PAST MEDICAL HISTORY OF depression PAST SURGICAL HISTORY Procedure Laterality Date ARTHRP KNE CONDYLE&PLATU MEDIAL&LAT COMPARTMENTS Knee replacement, total, both knee's PAST SURGICAL HISTORY OF cholecystecomy PAST SURGICAL HISTORY OF stent in sphincter of ode PAST SURGICAL HISTORY OF tubal ligation PAST SURGICAL HISTORY OF right foot bunion surgery ALLERGIES Allergen Reactions Soap Rash With Ann Marie and Tide specifically. Seasonal Allergies Unknown Coughing and congestion Grass Pollen Unknown House Dust Rash Tree, [place] Rash Current Outpatient Medications on File Prior to Visit Medication Sig SYNTHROID 100 mcg tablet TAKE 1 TABLET ONCE DAILY clonazePAM (KLONOPIN) 0.5 mg tablet Take 1 tablet by mouth at bedtime as needed for anxiety (and sleep difficulties) for up to 30 days. busPIRone (BUSPAR) 7.5 mg tablet Take 1.5 tablets by mouth two times a day. omeprazole (PRILOSEC) 20 mg capsule Take 20 mg by mouth once daily. brexpiprazole (REXULTI) 1 mg tablet Take 1 tablet by mouth once daily. DULoxetine (CYMBALTA) 60 mg capsule Take 1 capsule by mouth once daily. meloxicam (MOBIC) 15 mg tablet Take 15 mg by mouth once daily. dicyclomine (BENTYL) 10 mg capsule three times a day. enqkaf-witddvux-pyaprzp (CREON) 36,000-114,000- 180,000 unit delayed release capsule Take by mouth three times daily with meals. hydrOXYchloroQUINE (PLAQUENIL) 200 mg tablet once daily. cholecalciferol (VITAMIN D3) 400 unit tab once daily. multivitamin tablet Take 1 tablet by mouth once daily. acetaminophen (TYLENOL) 500 mg tablet Take by mouth every 8 hours as needed. gabapentin (NEURONTIN) 300 mg capsule Take 400 mg by mouth three times daily. No current facility-administered medications on file prior to visit. ROS: See HPI PFSH: See HPI VITAL SIGNS: There were no vitals filed for this visit. Last 3 Encounter BP Readings: Date: BP: 04/29/2024 160/50 04/16/2024 136/82 03/25/2024 156/76 MENTAL STATUS EXAMINATION: Appearance: Well dressed, well groomed Behavior: Behaves appropriately during the encounter Social relatedness: Euthymic Speech/Language: The patient demonstrates appropriate tone, prosody, carlton, phonetics, and syntax Mood: sad Affect: Full and appropriate to topic, and tearful at times Orientation: Person, Place, Time and Situation Associations: Intact and linear Hallucinations: None Delusions: None Suicidal Ideation: No suicidal ideation, intent or plan. Homicidal Ideation: No homicidal ideation, intent or plan. Insight: Appropriate Judgment: Appropriate DATA REVIEWED: Psychiatric scales, Electronic medical record, Labs, and The PDMP report was reviewed and found to be appropriate without any signs of misuse or diversion. DIAGNOSIS: Major depressive disorder, recurrent episode, moderate (hcc) (primary encounter diagnosis) Wolfgang (generalized anxiety disorder) Encounter for long-term (current) use of medications Psychosocial stressors GAF: -60-51 Moderate symptoms or moderate difficulty in social, occupational or school functioning. TREATMENT PLAN: Increase Rexulti to 1.5 mg to see if it helps with her situational depressive symptoms. Consider increase to 2 mg if needed. Continue Buspar at the same dose to address anxiety symptoms. Continue Cymbalta at the same dose to manage anxiety and mood symptoms. Utilize Clonazepam as needed to manage severe episodes of anxiety and difficulty sleeping. Continue weekly psychotherapy with her new provider. Follow up in 4 to 6 weeks. MEDICATION CHANGES: Prescriptions given See above. Patient denies any involuntary movement related side effects. Risks and benefits of the medication, including any black box warnings, were discussed with the patient. Patient is aware to reach out with any questions, concerns, or worsening of symptoms prior to the next appointment. Patient educated on risks of substance use in combination with medications and advised that any substance use along with medications may alter their effectiveness. Follow Up: See Treatment Plan Medical Decision Making: Problems: Moderate: 1+ chronic illnesses with change and 2+ stable chronic illnesses Data: Unique source(s) for external note(s) reviewed: 3+ Unique test result(s) reviewed: 3+ Independent interpretation of test from other physician/QHCP Risk: Moderate: Moderate risk from testing/treatment and Drug management Medical Decision Making Level: 4 - Moderate ADD ON PSYCHOTHERAPY CODE : Yes I spent 20 minutes ( in addition to E/M services) in psychotherapy,utilizing Supportive, Motivational, and Interpersonal techniques to target feelings of sadness and struggles with motivation, with goal to improve self-worth. SIGNATURE: Catarina Fitch APRN.CNP PATIENT NAME: Abel Lyles DATE: July 01, 2024 TIME: 8:07 AM documented in [facility] Evaluation note* Diagnosis Onset Date Resolution Status Admit Date Irritable bowel syndrome wit h diarrhea acute May 06, 2 024 12:43pm Constipation chronic April 12:43pm Connective tissue disease chronic May 15, 2024 10:04am Dyslipidemia chronic May 10:04am Dyspnea on exertion chronic Decem 2023 10:04am Hypertension chronic May 10:04am Obesity chronic May 15, 2024 10:04am Preoperative cardiovascular examination noneactive May 15 10:04am Irritable bowel syndrome wit h diarrhea acute August 06, 2 025 7:54am [facility] Work Phone: 1([phone]) 135-842111-25-2024 Instructions* Patient Instructions* Catarina Fitch APRN.CNP - 05/05/2024 11:10 PM EST TREATMENT PLAN: Continue Rexulti and Cymbalta at current doses Increase Buspar to 1.5 tablets 2 times per day to address anxiety symptoms. Continue Klonopin as needed for racing thoughts at bedtime that interfere with falling asleep. Resume psychotherapy once Dr. Becker returns. Follow up in 2 months. For those experiencing a suicidal crisis: --call the National Suicide Prevention Lifeline at 988 (538.957.8886) --text the Crisis Text Line (text HOME to 164134) --call 911 and let them know you are having a mental health crisis or go to your nearest Emergency Room for stabilization. --You can also call Mobile Crisis at [phone]. -- You may call the department appointment line at [phone] to schedule your appointment. -- Please call my nurse at [phone] or send me a message in [employer] with any questions or concerns between appointments. documented in this encounterSelect [facility] Telephone encounter Note * Telephone Encounter - Jean Marie Guzman LPN - 05/05/2024 9:15 AM EST Pharmacy faxed request for the following refill(s): [facility] 04/16/24 07/28/24 Requested Prescriptions Pending Prescriptions Disp Refills SYNTHROID 100 mcg tablet [Pharmacy Med Name: SYNTHROID TAB 100MCG] 90 tablet 3 Sig: TAKE 1 TABLET ONCE DAILY Jean Marie Guzman LPN May 05, 2024 9:22 AM [facility]-25-[facility]24 Miscellaneous Notes* Telephone Encounter - Jean Marie Guzman LPN - 05/05/2024 9:15 AM EST Pharmacy faxed request for the following refill(s): [facility] 04/16/24 07/28/24 Requested Prescriptions Pending Prescriptions Disp Refills SYNTHROID 100 mcg tablet [Pharmacy Med Name: SYNTHROID TAB 100MCG] 90 tablet 3 Sig: TAKE 1 TABLET ONCE DAILY Jean Marie Guzman LPN May 05, 2024 9:22 AM documented in this encounterSelect [facility] [place]-19-2024 NoteHNO ID: [id number] Author: CATARINA FITCH APRN.TWISTHAND Service: ? Author Type: Nurse Practitioner Type: Progress Notes Filed: 05/05/2024 23:10 Note Text: FOLLOW UP - PSYCHIATRIC PROGRESS NOTE PATIENT: Abel Lyles DATE: April 29, 2024 Visit Type:In person All information is from Patient report except when noted. This evaluation is NOT intended for forensic, disability or child custody purposes. Catarina Morillo APRN.LINDA, personally performed the services described in this documentation. All medical record entries made by the [employer] student were at my direction and in my presence. I have reviewed the chart and discharge instructions (if applicable) and agree that the record reflects my personal performance and is accurate and complete. Catarina Fitch APRN.CNP May 05, 2024 11:06 PM CC: Presenting today for follow up regarding psychiatric medication management. HPI: Treatment Plan from Last Visit on 03/25/2024: TREATMENT PLAN: Gradually taper off Lamictal as discussed due to the patient possibly struggling with cognitive side effects from the medication. Continue Rexulti to address depressive symptoms. Continue Cymbalta at the current dose to address anxiety symptoms. Continue Buspar at the same dose to address anxiety symptoms. Utilize Klonopin only as needed to manage severe anxiety and sleep difficulties. Continue individual psychotherapy with her routine provider. Today Abel shares that I think taking away the Lamictal has helped with focus to a certain point. Lamictal was d/c'd due to some cognitive issues. States she is upset because her therapist is currently ill and missed several weeks. Unknown when he will return. She has been seeing him weekly for the past 20 years on and off. Voices concern for herself but also for him and whatever he is going through. However, she does report he has been cutting down his hours as he is getting closer to skilled nursing but otherwise he appeared healthy. Doesn't feel that the anxiety hasn't really diminished. However PHQ and WOLFGANG scores today improved compared to last visit. Feels that the recent election has increased her anxiety. Worried about how the outcome will affect her, her family, the country, etc. Shares how last week's gospel in worship were about the end of time and that bad things are going to happen but to remember your david. Shares that it is tough sometimes though. 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 Struggles between wanting to be informed but not letting it increase her anxiety. Feels very tired but then when she goes to bed her brain won't turn off and she has to get up and take a 1/2 of a Klonopin. It was happening nightly for a while but that has decreased recently and she hasn't had any in the past week. Trying other measures to help her sleep-I.e. looking through catalogs. Used to take Remeron for sleep but stopped that a few months ago. Doesn't want to resume it though. Doesn't use the Klonopin often. Last refilled for 15 pills 3 months ago and still has some left. Taking Cymbalta as ordered. Feels anxious about upcoming foot surgery. Has ruminating thoughts at times. Started discussing holidays and grandson's upcoming birthday next week. Daughter is going away for New Years Angel[place] with her and father. However, she did agree to come to Abel's home and stay with her post op up to 3 month as needed and said they'll celebrate child's birthday and holidays when she gets home. Abel made plans to visit a friend on instead. Discussed using Buspar 2-3 times per day for anxiety or increasing the dose. Interval Progress: Same PATIENT DATA: Generalized Anxiety Disorder Scale (WOLFGANG-7) 01/29/2024 03/25/2024 04/28/2024 WOLFGANG - 7 SCORES Score 9 20 11 (0-4) minimal anxiety, (5-9) mild anxiety, (10-14) moderate anxiety, (15-21) severe anxiety Patient Health Questionnaire (PHQ-9) 01/29/2024 03/25/2024 04/28/2024 PHQ-9 Score 10 20 11 (0-4) minimal depression, (5-9) mild depression, (10-14) moderate depression, (15-19) moderately severe depression, (20-27) severe depression PAST MEDICAL HISTORY Diagnosis Date Hypothyroidism PMH - PAST MEDICAL HISTORY OF seasonal allergies PMH - PAST MEDICAL HISTORY OF tension headaches PMH - PAST MEDICAL HISTORY OF tension in shoulders PMH - PAST MEDICAL HISTORY OF pancreatitis PMH - PAST MEDICAL HISTORY OF ibs PMH - PAST MEDICAL HISTORY OF chronic epigastric pain PMH - PAST MEDICAL HISTORY OF reset broken nose PMH - PAST MEDICAL HISTORY OF arthritis PMH - PAST MEDICAL HISTORY OF depression PAST SURGICAL HISTORY Procedure Laterality Date ARTHRP KNE CONDYLEANDPLATU MEDIALANDLAT COMPARTMENTS Knee replacement, total, both knee's PAST SURGICAL HISTORY OF cholecystecomy PAST SURGICAL HISTORY OF stent in sphincter of ode PAST SURGICAL HISTORY OF tubal ligation PAST SURGICAL H (more content not included)...[facility] 04-29-2024 History of Present illness Narrative* Catarina Fitch APRN.CNP - 04/29/2024 3:16 PM EST Images from the original note were not included. FOLLOW UP - PSYCHIATRIC PROGRESS NOTE PATIENT: Abel Lyles DATE: April 29, 2024 Visit Type:In person All information is from Patient report except when noted. This evaluation is NOT intended for forensic, disability or child custody purposes. Catarina Morillo APRN.LINDA, personally performed the services described in this documentation. All medical record entries made by the LYND[employer] student were at my direction and in my presence. I have reviewed the chart and discharge instructions (if applicable) and agree that the record reflects my personal performance and is accurate and complete. Catarina Fitch APRN.CNP May 05, 2024 11:06 PM CC: Presenting today for follow up regarding psychiatric medication management. HPI: Treatment Plan from Last Visit on 03/25/2024: TREATMENT PLAN: Gradually taper off Lamictal as discussed due to the patient possibly struggling with cognitive side effects from the medication. Continue Rexulti to address depressive symptoms. Continue Cymbalta at the current dose to address anxiety symptoms. Continue Buspar at the same dose to address anxiety symptoms. Utilize Klonopin only as needed to manage severe anxiety and sleep difficulties. Continue individual psychotherapy with her routine provider. Today Abel shares that I think taking away the Lamictal has helped with focus to a certain point. Lamictal was d/c'd dueto some cognitive issues. States she is upset because her therapist is currently ill and missed several weeks. Unknown when he will return. She has been seeing him weekly for the past 20 years on and off. Voices concern for herself but also for him and whatever he is going through. However, she does report he has been cutting down his hours as he is getting closer to skilled nursing but otherwise he appeared healthy. Doesn't feel that the anxiety hasn't really diminished. However PHQ and WOLFGANG scores today improved compared to last visit. Feels that the recent election has increased her anxiety. Worried about how the outcome will affect her, her family, the country, etc. Shares how last week's gospel in worship were about the end of time and that bad things are going to happen but to remember your david. Shares that it is tough sometimes though. 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 Struggles between wanting to be informed but not letting it increase her anxiety. Feels very tired but then when she goes to bed her brain won't turn off and she has to get up andtake a 1/2 of a Klonopin. It was happening nightly for a while but that has decreased recently and she hasn't had any in the past week. Trying other measures to help her sleep-I.e. looking through catalogs. Used to take Remeron for sleep but stopped that a few months ago. Doesn't want to resume it though. Doesn't use the Klonopin often. Last refilled for 15 pills 3 months ago and still has some left. Taking Cymbalta as ordered. Feels anxious about upcoming foot surgery. Has ruminating thoughts at times. Started discussing holidays and grandson's upcoming birthday next week. Daughter is going away for New Years [place] with her and father. However, she did agree to come to Abel's home and stay with her post op up to 3 month as needed and said they'll celebrate child's birthday and holidays when she gets home. Abel made plans to visit a friend on instead. Discussed using Buspar 2-3 times per day for anxiety or increasing the dose. Interval Progress: Same PATIENT DATA: Generalized Anxiety Disorder Scale (WOLFGANG-7) 01/29/2024 03/25/2024 04/28/2024 WOLFGANG - 7 SCORES Score 9 20 11 (0-4) minimal anxiety, (5-9) mild anxiety, (10-14) moderate anxiety, (15-21) severe anxiety Patient Health Questionnaire (PHQ-9) 01/29/2024 03/25/2024 04/28/2024 PHQ-9 Score 10 20 11 (0-4) minimal depression, (5-9) mild depression, (10-14) moderate depression, (15-19) moderately severe depression, (20-27) severe depression PAST MEDICAL HISTORY Diagnosis Date Hypothyroidism PMH - PAST MEDICAL HISTORY OF seasonal allergies PMH - PAST MEDICAL HISTORY OF tension headaches PMH - PAST MEDICAL HISTORY OF tension in shoulders PMH - PAST MEDICAL HISTORY OF pancreatitis PMH - PAST MEDICAL HISTORY OF ibs PMH - PAST MEDICAL HISTORY OF chronic epigastric pain PMH - PAST MEDICAL HISTORY OF reset broken nose PMH - PAST MEDICAL HISTORY OF arthritis PMH - PAST MEDICAL HISTORY OF depression PAST SURGICAL HISTORY Procedure Laterality Date ARTHRP KNE CONDYLE&PLATU MEDIAL&LAT COMPARTMENTS Knee replacement, total, both knee's PAST SURGICAL HISTORY OF cholecystecomy PAST SURGICAL HISTORY OF stent in sphincter of ode PAST SURGICAL HISTORY OF tubal ligation PAST SURGICAL HISTORY OF right foot bunion surgery ALLERGIES Allergen Reactions Soap Rash With Ann Marie and Tide specifically. Seasonal Allergies Unknown Coughing and congestion Grass Pollen Unknown House Dust Rash Tree, [place] Rash Current Outpatient Medications on File Prior to Visit Medication Sig omeprazole (PRILOSEC) 20 mg capsule Take 20 mg by mouth once daily. brexpiprazole (REXULTI) 1 mg tablet Take 1 tablet by mouth once daily. DULoxetine (CYMBALTA) 60 mg capsule Take 1 capsule by mouth once daily. clonazePAM (KLONOPIN) 0.5 mg tablet Take 1 tablet by mouth at bedtime as needed for anxiety (and sleep difficulties) for up to 30 days. busPIRone (BUSPAR) 7.5 mg tablet Take 1 tablet by mouth two times a day. meloxicam (MOBIC) 15 mg tablet Take 15 mg by mouth once daily. levothyroxine (SYNTHROID) 100 mcg tablet Take 1 tablet by mouth once daily. dicyclomine (BENTYL) 10 mg capsule three times a day. jcyqeb-rcykwsfe-osyyfoi (CREON) 36,000-114,000- 180,000 unit delayed release capsule Take by mouth three times daily with meals. hydrOXYchloroQUINE (PLAQUENIL) 200 mg tablet once daily. cholecalciferol (VITAMIN D3) 400 unit tab once daily. multivitamin tablet Take 1 tablet by mouth once daily. acetaminophen (TYLENOL) 500 mg tablet Take by mouth every 8 hours as needed. gabapentin (NEURONTIN) 300 mg capsule Take 400 mg by mouth three times daily. lamoTRIgine (LAMICTAL) 100 mg tablet Take 1 tablet by mouth once daily for 14 days, THEN 0.5 tablets once daily for 14 days. Discontinue after.. No current facility-administered medications on file prior to visit. ROS: See HPI PFSH: See HPI VITAL SIGNS: 04/29/24 1459 BP: 160/50 Pulse: 60 Resp: 16 Weight: 100.3 kg (221 lb 3.2 oz) Last 3 Encounter BP Readings: Date: BP: 04/29/2024 160/50 04/16/2024 136/82 03/25/2024 156/76 MENTAL STATUS EXAMINATION: Appearance: Well dressed, well groomed Behavior: Behaves appropriately during the encounter Social relatedness: Euthymic Speech/Language: The patient demonstrates appropriate tone, prosody, carlton, phonetics, and syntax Mood: euthymic Affect: Full and appropriate to topic Orientation: Person, Place, Time and Situation Associations: Intact and linear Hallucinations: None Delusions: None Suicidal Ideation: No suicidal ideation, intent or plan. Homicidal Ideation: No homicidal ideation, intent or plan. Insight: Appropriate Judgment: Appropriate DATA REVIEWED: Psychiatric scales, Electronic medical record, and The PDMP report was reviewed and found to be appropriate without any signs of misuse or diversion. DIAGNOSIS: Wolfgang (generalized anxiety disorder) Major depressive disorder, recurrent episode, moderate (hcc) (primary encounter diagnosis) Encounter for long-term (current) use of medications Psychosocial stressors Cognitive change GAF: -60-51 Moderate symptoms or moderate difficulty in social, occupational or school functioning. TREATMENT PLAN: Continue Rexulti and Cymbalta at current doses Increase Buspar to 1.5 tablets 2 times per day to address anxiety symptoms. Continue Klonopin as needed for racing thoughts at bedtime that interfere with falling asleep. Resume psychotherapy once Dr. Becker returns. Follow up in 2 months. MEDICATION CHANGES: As above. Risks and benefits of the medication, including any black box warnings, were discussed with the patient. Patient is aware to reach out with any questions, concerns, or worsening of symptoms prior to the next appointment. Patient educated on risks of substance use in combination with medications and advised that any substance use along with medications may alter their effectiveness. Follow Up: See Treatment Plan Medical Decision Making: Problems: Moderate: 2+ stable chronic illnesses and 1+ chronic illnesses with change Risk: Moderate: Moderate risk from testing/treatment and Drug management Medical Decision Making Level: 4 - Moderate ADD ON PSYCHOTHERAPY CODE : No SIGNATURE: Catarina Fitch APRN.CNP PATIENT NAME: Abel Lyles DATE: April 29, 2024 TIME: 3:16 PM documented in this encounterSelect [facility] [place] Telephone encounter Note * Telephone Encounter - Catarina Fitch APRN.CNP - 04/25/2024 8:42 AM EST Appreciate the update. Glad to see that the patient is noticing improvement in her cognitive functioning. [facility] Miscellaneous Notes* Telephone Encounter - Catarina Fitch APRN.CNP - 04/25/2024 8:42 AM EST Appreciate the update. Glad to see that the patient is noticing improvement in her cognitive functioning. * Telephone Encounter - Bobbi Lindsey RN - 04/23/2024 3:30 PM EST Patient calls and states that she is feeling ok. Patient states that she is almost done with the Lamictal. Patient states that her brain is not as foggy. Bobbi Lindsey RN documented in this encounterSelect [facility] [place]-2024 Telephone encounter Note * Telephone Encounter - Bobbi Lindsey RN - 04/23/2024 3:30 PM EST Patient calls and states that she is feeling ok. Patient states that she is almost done with the Lamictal. Patient states that her brain is not as foggy. Bobbi Lindsey RN [facility] Telephone encounter Note* Telephone Encounter - Mario Frye LPN - 04/22/2024 8:06 AM EST Referral has already been sent to [place] on 04-18-2024 Mario Frye LPN April 22, 2024 8:06 AM [facility] Miscellaneous Notes* Telephone Encounter - Mario Frye LPN - 04/22/2024 8:06 AM EST Referral has already been sent to [place] on 04-18-2024 Mario Frye LPN April 22, 2024 8:06 AM * Telephone Encounter - Melissa Lopes MD - 04/21/2024 12:55 PM EST Okay to change location to [place] * Telephone Encounter - Marisol Russell MA - 04/21/2024 11:32 AM ESTSummary: cardiology referral Patient calling regarding her cardiology referral, she states she called about the referral and wastold that it could take months for her to get in to see a patternator and was told that you could order the ECHO. She is requesting the cardiology referral be sent to [facility] location to see if she can get a sooner appt Marisol Russell MA April 21, 2024 11:35 AM documented in this encounterSelect [facility] [place]24 Telephone encounter Note * Telephone Encounter - Melissa Lopes MD - 04/21/2024 12:55 PM EST Okay to change location to [place] [facility] Telephone encounter Note* Telephone Encounter - Marisol Russell MA - 04/21/2024 11:32 AM ESTSummary: cardiology referral Patient calling regarding her cardiology referral, she states she called about the referral and wastold that it could take months for her to get in to see a patternator and was told that you could order the ECHO. She is requesting the cardiology referral be sent to [facility] location to see if she can get a sooner appt Marisol Russell MA April 21, 2024 11:35 AM [facility] Telephone encounter Note* Telephone Encounter - Mario Frye LPN - 04/18/2024 11:37 AM EST Referral sent to Dr. Mcdaniel through [facility] Mario Frye LPN April 18, 2024 11:53 AM [facility] Miscellaneous Notes* Telephone Encounter - Mario Frye LPN - 04/18/2024 11:37 AM EST Referral sent to Dr. Mcdaniel through [facility] Mario Frye LPN April 18, 2024 11:53 AM documented in this encounterSelect [facility] [place]-2024 NoteHNO ID: [id number] Author: MELISSA LOPES MD Service: ? Author Type: Physician Type: Progress Notes Filed: 04/17/2024 16:12 Note Text: Annelise Lyles is a 73 year old female. Patient presents today for preop clearance for upcoming foot procedure. She denies any previous difficulty with anesthesia. She denies any current cardiovascular, pulmonary, or neurological symptoms. Review of Systems Constitutional: Negative. HENT: Negative. Eyes: Negative. Respiratory: Negative. Cardiovascular: Negative. Gastrointestinal: Negative. Endocrine: Negative. Genitourinary: Negative. Musculoskeletal: Negative. Skin: Negative. Allergic/Immunologic: Negative. Neurological: Negative. Hematological: Negative. Psychiatric/Behavioral: Negative. PAST SURGICAL HISTORY Procedure Laterality Date ARTHRP KNE CONDYLEANDPLATU MEDIALANDLAT COMPARTMENTS Knee replacement, total, both knee's PAST SURGICAL HISTORY OF cholecystecomy PAST SURGICAL HISTORY OF stent in sphincter of ode PAST SURGICAL HISTORY OF tubal ligation PAST SURGICAL HISTORY OF right foot bunion surgery PAST MEDICAL HISTORY Diagnosis Date Hypothyroidism PMH - PAST MEDICAL HISTORY OF seasonal allergies PMH - PAST MEDICAL HISTORY OF tension headaches PMH - PAST MEDICAL HISTORY OF tension in shoulders PMH - PAST MEDICAL HISTORY OF pancreatitis PMH - PAST MEDICAL HISTORY OF ibs PMH - PAST MEDICAL HISTORY OF chronic epigastric pain PMH - PAST MEDICAL HISTORY OF reset broken nose PMH - PAST MEDICAL HISTORY OF arthritis PMH - PAST MEDICAL HISTORY OF depression FAMILY HISTORY Problem Relation Age of Onset Cancer Mother lung related to smoking None Father unknown GI Brother gallbladder removed GI Brother other brother on disability unknown why Cancer Brother Testicular Thyroid Maternal Grandmother Diabetes Maternal Uncle Diabetes Maternal Uncle Social History Tobacco Use Smoking status: Never Passive exposure: Never Smokeless tobacco: Never Vaping Use Vaping status: Never Used Substance Use Topics Alcohol use: Yes Comment: occassionally Drug use: Never ALLERGIES Allergen Reactions Soap Rash With Ann Marie and Tide specifically. Seasonal Allergies Unknown Coughing and congestion Grass Pollen Unknown House Dust Rash Tree, [place] Rash MEDICATIONS: omeprazole (PRILOSEC) 20 mg capsule Take 20 mg by mouth once daily. lamoTRIgine (LAMICTAL) 100 mg tablet Take 1 tablet by mouth once daily for 14 days, THEN 0.5 tablets once daily for 14 days. Discontinue after.. brexpiprazole (REXULTI) 1 mg tablet Take 1 tablet by mouth once daily. DULoxetine (CYMBALTA) 60 mg capsule Take 1 capsule by mouth once daily. busPIRone (BUSPAR) 7.5 mg tablet Take 1 tablet by mouth two times a day. meloxicam (MOBIC) 15 mg tablet Take 15 mg by mouth once daily. levothyroxine (SYNTHROID) 100 mcg tablet Take 1 tablet by mouth once daily. dicyclomine (BENTYL) 10 mg capsule three times a day. jkddzr-bipvvjuy-bdvdvwn (CREON) 36,000-114,000- 180,000 unit delayed release capsule Take by mouth three times daily with meals. hydrOXYchloroQUINE (PLAQUENIL) 200 mg tablet once daily. cholecalciferol (VITAMIN D3) 400 unit tab once daily. multivitamin tablet Take 1 tablet by mouth once daily. acetaminophen (TYLENOL) 500 mg tablet Take by mouth every 8 hours as needed. gabapentin (NEURONTIN) 300 mg capsule Take 400 mg by mouth three times daily. clonazePAM (KLONOPIN) 0.5 mg tablet Take 1 tablet by mouth at bedtime as needed for anxiety (and sleep difficulties) for up to 30 days. Allergies, past surgical history, family history and past medical history were reviewed per this encounter. Medications were reviewed and verified. 03/25/2024 04/16/2024 INTAKE PAIN ASSESSMENT Are you having pain associated with your visit today? Yes, Provider notified Yes, Provider notified Pain Scales FACES Verbal (Numeric Rating or Visual Analog Scale) Pain Level 2 8 Pain Location Foot-Right Foot-Left Description Throbbing;Numbness Duration Amount of Time 24 Duration Units Hours Frequency Continuous If pain assessment is 0, no action needed. If pain assessment is positive, please see assessment and plain. Objective BP 136/82 (BP Site: Left Arm, BP Position: Sitting, BP Cuff Size: Regular Adult) Pulse 66 Temp 36.4 ?C (97.6 ?F) (Temporal) Resp 18 Ht 160 cm (5' 3) Wt 100.2 kg (221 lb) SpO2 98% BMI 39.15 kg/m? Physical Exam Vitals reviewed. Constitutional: Appearance: Normal appearance. HENT: Head: Normocephalic and atraumatic. Nose: Nose normal. Eyes: Extraocular Movements: Extraocular movements intact. Pupils: Pupils are equal, round, and reactive to light. Cardiovascular: Rate and Rhythm: Normal rate and regular rhythm. Heart sounds: S1 normal and S2 normal. Murmur heard. Crescendo decrescendo systolic murmur is present with a grade of 3/6. Pulmon (more content not included)...[facility]11-07-2024 History of Present illness Narrative* Melissa Lopes MD - 04/17/2024 4:09 PM EST Subjective Abel Lyles is a 73 year old female. Patient presents today for preop clearance for upcoming foot procedure. She denies any previous difficulty with anesthesia. She denies any current cardiovascular, pulmonary, or neurological symptoms. Review of Systems Constitutional: Negative. HENT: Negative. Eyes: Negative. Respiratory: Negative. Cardiovascular: Negative. Gastrointestinal: Negative. Endocrine: Negative. Genitourinary: Negative. Musculoskeletal: Negative. Skin: Negative. Allergic/Immunologic: Negative. Neurological: Negative. Hematological: Negative. Psychiatric/Behavioral: Negative. PAST SURGICAL HISTORY Procedure Laterality Date ARTHRP KNE CONDYLE&PLATU MEDIAL&LAT COMPARTMENTS Knee replacement, total, both knee's PAST SURGICAL HISTORY OF cholecystecomy PAST SURGICAL HISTORY OF stent in sphincter of ode PAST SURGICAL HISTORY OF tubal ligation PAST SURGICAL HISTORY OF right foot bunion surgery PAST MEDICAL HISTORY Diagnosis Date Hypothyroidism PMH - PAST MEDICAL HISTORY OF seasonal allergies PMH - PAST MEDICAL HISTORY OF tension headaches PMH - PAST MEDICAL HISTORY OF tension in shoulders PMH - PAST MEDICAL HISTORY OF pancreatitis PMH - PAST MEDICAL HISTORY OF ibs PMH - PAST MEDICAL HISTORY OF chronic epigastric pain PMH - PAST MEDICAL HISTORY OF reset broken nose PMH - PAST MEDICAL HISTORY OF arthritis PMH - PAST MEDICAL HISTORY OF depression FAMILY HISTORY Problem Relation Age of Onset Cancer Mother lung related to smoking None Father unknown GI Brother gallbladder removed GI Brother other brother on disability unknown why Cancer Brother Testicular Thyroid Maternal Grandmother Diabetes Maternal Uncle Diabetes Maternal Uncle Social History Tobacco Use Smoking status: Never Passive exposure: Never Smokeless tobacco: Never Vaping Use Vaping status: Never Used Substance Use Topics Alcohol use: Yes Comment: occassionally Drug use: Never ALLERGIES Allergen Reactions Soap Rash With Ann Marie and Tide specifically. Seasonal Allergies Unknown Coughing and congestion Grass Pollen Unknown House Dust Rash Tree, [place] Rash MEDICATIONS: omeprazole (PRILOSEC) 20 mg capsule Take 20 mg by mouth once daily. lamoTRIgine (LAMICTAL) 100 mg tablet Take 1 tablet by mouth once daily for 14 days, THEN 0.5 tablets once daily for 14 days. Discontinue after.. brexpiprazole (REXULTI) 1 mg tablet Take 1 tablet by mouth once daily. DULoxetine (CYMBALTA) 60 mg capsule Take 1 capsule by mouth once daily. busPIRone (BUSPAR) 7.5 mg tablet Take 1 tablet by mouth two times a day. meloxicam (MOBIC) 15 mg tablet Take 15 mg by mouth once daily. levothyroxine (SYNTHROID) 100 mcg tablet Take 1 tablet by mouth once daily. dicyclomine (BENTYL) 10 mg capsule three times a day. rsebbv-kzucujmh-gvjqkqg (CREON) 36,000-114,000- 180,000 unit delayed release capsule Take by mouth three times daily with meals. hydrOXYchloroQUINE (PLAQUENIL) 200 mg tablet once daily. cholecalciferol (VITAMIN D3) 400 unit tab once daily. multivitamin tablet Take 1 tablet by mouth once daily. acetaminophen (TYLENOL) 500 mg tablet Take by mouth every 8 hours as needed. gabapentin (NEURONTIN) 300 mg capsule Take 400 mg by mouth three times daily. clonazePAM (KLONOPIN) 0.5 mg tablet Take 1 tablet by mouth at bedtime as needed for anxiety (and sleep difficulties) for up to 30 days. Allergies, past surgical history, family history and past medical history were reviewed per this encounter. Medications were reviewed and verified. 03/25/2024 04/16/2024 INTAKE PAIN ASSESSMENT Are you having pain associated with your visit today? Yes, Provider notified Yes, Provider notified Pain Scales FACES Verbal (Numeric Rating or Visual Analog Scale) Pain Level 2 8 Pain Location Foot-Right Foot-Left Description Throbbing;Numbness Duration Amount of Time 24 Duration Units Hours Frequency Continuous If pain assessment is 0, no action needed. If pain assessment is positive, please see assessment and plain. Objective BP 136/82 (BP Site: Left Arm, BP Position: Sitting, BP Cuff Size: Regular Adult) Pulse 66 Temp 36.4 C (97.6 F) (Temporal) Resp 18 Ht 160 cm (5' 3) Wt 100.2 kg (221 lb) SpO2 98% BMI 39.15 kg/m Physical Exam Vitals reviewed. Constitutional: Appearance: Normal appearance. HENT: Head: Normocephalic and atraumatic. Nose: Nose normal. Eyes: Extraocular Movements: Extraocular movements intact. Pupils: Pupils are equal, round, and reactive to light. Cardiovascular: Rate and Rhythm: Normal rate and regular rhythm. Heart sounds: S1 normal and S2 normal. Murmur heard. Crescendo decrescendo systolic murmur is present with a grade of 3/6. Pulmonary: Effort: Pulmonary effort is normal. Breath sounds: Normal breath sounds. Abdominal: General: Bowel sounds are normal. Palpations: Abdomen is soft. Musculoskeletal: General: Normal range of motion. Cervical back: Normal range of motion and neck supple. Skin: General: Skin is warm and dry. Capillary Refill: Capillary refill takes less than 2 seconds. Neurological: General: No focal deficit present. Mental Status: She is alert and oriented to person, place, and time. Mental status is at baseline. Psychiatric: Mood and Affect: Mood normal. Behavior: Behavior normal. Assessment and Plan Encounter Diagnosis ICD-10-CM 1. Preop examination Z01.818 2. Heart murmur R01.1 CONSULT TO CARDIOLOGY Patient will need cardiovascular evaluation for murmur. Once cleared by cardiology patient should be fine for anesthesia. She is currently medically maximized with the exception of the murmur evaluation. Melissa Lopes MD April 17, 2024 April 17, 2024 * Mario Frye LPN - 04/16/2024 1:49 PM EST Patient is in office for presurgical clearance. Patient is having injections placed into bilateral feet under anesthesia. Procedure is scheduled for Sunday04-21-2024 at [facility] No refills needed. Mario Frye LPN April 16, 2024 1:53 PM [facility] NoteHNO ID: [id number] Author: MARIO FRYE LPN Service: ? Author Type: LICENSED NURSE Type: Progress Notes Filed: 04/17/2024 16:12 Note Text: Patient is in office for presurgical clearance. Patient is having injections placed into bilateral feet under anesthesia. Procedure is scheduled for Sunday04-21-2024 at [facility] No refills needed. Mario Frye LPN April 16, 2024 1:[address] [facility] Telephone encounter Note * Telephone Encounter - Fatuma Jewell LPN - 04/07/2024 1:01 PM EDT Telephone call to patient, message left to see how she is feeling after medication changes. Fatuma Jewell LPN [facility]10-28-2024 Miscellaneous Notes* Telephone Encounter - Fatuma Jewell LPN - 04/07/2024 1:01 PM EDT Telephone call to patient, message left to see how she is feeling after medication changes. Fatuma Jewell LPN * Telephone Encounter - Catarina Fitch APRN.CNP - 04/03/2024 2:47 PM EDT Noted patient's response. It might take a little bit longer to see improvement in cognitive functioning. Please have her keep an eye on her depressive symptoms and reach out sooner as she taper off the Lamictal further. * Telephone Encounter - Fatuma Jewell LPN - 04/03/2024 11:26 AM EDT Patient called with an update after change in medication at appointment. Patient reports, hasn't seen much of a difference, but I'm hanging in there. Fatuma Jewell LPN [facility] [place] Telephone encounter Note * Telephone Encounter - Catarina Fitch APRN.CNP - 04/03/2024 2:47 PM EDT Noted patient's response. It might take a little bit longer to see improvement in cognitive functioning. Please have her keep an eye on her depressive symptoms and reach out sooner as she taper off the Lamictal further. [facility]-24-[facility]24 Telephone encounter Note* Telephone Encounter - Fatuma Jewell LPN - 04/03/2024 11:26 AM EDT Patient called with an update after change in medication at appointment. Patient reports, hasn't seen much of a difference, but I'm hanging in there. Fatuma Jewell LPN [facility]-22-[facility] Instructions* Patient Instructions* Catarina Fitch APRN.TWISTHAND - 04/01/2024 2:51 AM EDT Pari Astudillo, It was good to talk with you today. Below is a summary of the plan that we discussed during your appointment for reference. Of course, if you have any questions or concerns do not hesitate to reach out to me via a message or call. Catarina Aquino APRN.TWISTHAND PLAN AND FOLLOW UP: TREATMENT PLAN: Gradually taper off Lamictal as discussed due to the patient possibly struggling with cognitive side effects from the medication. Continue Rexulti to address depressive symptoms. Continue Cymbalta at the current dose to address anxiety symptoms. Continue Buspar at the same dose to address anxiety symptoms. Utilize Klonopin only as needed to manage severe anxiety and sleep difficulties. Continue individual psychotherapy with her routine provider. For those experiencing a suicidal crisis: --call the National Suicide Prevention Lifeline at 988 (321.523.9301) --text the Crisis Text Line (text HOME to 040556) --call 931 and let them know you are having a mental health crisis or go to your nearest Emergency Room for stabilization. --You can also call Mobile Crisis at [phone]. Next appointment: --Schedule in 4 weeks or sooner if needed -- You may call the department appointment line at [phone] to schedule your appointment. -- Please call my nurse at [phone] or send me a message in [employer] with any questions or concerns between appointments. documented in this encounterSelect [facility] [place] History of Present illness Narrative* Catarina Fitch APRN.CNP - 03/25/2024 2:00 PM EDT Images from the original note were not included. FOLLOW UP - PSYCHIATRIC PROGRESS NOTE PATIENT: Abel Lyles DATE: March 25, 2024 Visit Type:In person All information is from Patient report except when noted. This evaluation is NOT intended for forensic, disability or child custody purposes. CC: Presenting today for follow up regarding psychiatric medication management. HPI: Treatment Plan from Last Visit on 01/29/2024: TREATMENT PLAN: Patient called and verified the medications that she is currently taking. Has been taking Lamictal 200 mg, Cymbalta 60 mg, Rexulti 0.5 mg, and Buspar 7.5 mg. Patient has been asked to increase the Rexulti dose to 1 mg to see if that helps address the depressive symptoms better. Utilize Clonazepam 0.5 mg as needed to manage severe symptoms of anxiety that interfere with sleep.Patient rarely uses this medication. Continue individual psychotherapy with Dr. Becker. Today Abel shares that she is taking all her medications consistently. Taking clonazepam 0.5 mg about 2 times a week to address anxiety concerns that get in the way of her sleep. Takes Buspar morning and night. Abel shares that I am concerned about myself doing weird things. I have a lot of confusion about where things are and when I am doing something. When I am driving, sometimes, I will forget how to get there. I can't find the letters on the keyboard and it makes me really frustrated and anxious. Some days she over sleeps. I cancelled an appointment and slept around 18 hours. Shares that these cognitive concerns have been more insidious but more bothersome in the past month. Shares that she had a fall going down her basement. I didn't tell anyone. Hit the side of her face and had some jaw pain. Has noticed tremor in her hand and her chin. Was present and is more noticeable now. 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 I don't know if its my meds or not but I am not okay. Discussed the effects and side effects of all the psychiatric medications. Takes Gabapentin 400 mg three times daily through pain management. Has been on gabapentin for years. The stimulator has helped her back pain. Interval Progress: Worse PATIENT DATA: Generalized Anxiety Disorder Scale (WOLFGANG-7) 01/22/2024 01/29/2024 03/25/2024 WOLFGANG - 7 SCORES Score 7 9 20 (0-4) minimal anxiety, (5-9) mild anxiety, (10-14) moderate anxiety, (15-21) severe anxiety Patient Health Questionnaire (PHQ-9) 01/22/2024 01/29/2024 03/25/2024 PHQ-9 Score 10 10 20 (0-4) minimal depression, (5-9) mild depression, (10-14) moderate depression, (15-19) moderately severe depression, (20-27) severe depression PAST MEDICAL HISTORY Diagnosis Date Hypothyroidism PMH - PAST MEDICAL HISTORY OF seasonal allergies PMH - PAST MEDICAL HISTORY OF tension headaches PMH - PAST MEDICAL HISTORY OF tension in shoulders PMH - PAST MEDICAL HISTORY OF pancreatitis PMH - PAST MEDICAL HISTORY OF ibs PMH - PAST MEDICAL HISTORY OF chronic epigastric pain PMH - PAST MEDICAL HISTORY OF reset broken nose PMH - PAST MEDICAL HISTORY OF arthritis PMH - PAST MEDICAL HISTORY OF depression PAST SURGICAL HISTORY Procedure Laterality Date ARTHRP KNE CONDYLE&PLATU MEDIAL&LAT COMPARTMENTS Knee replacement, total, both knee's PAST SURGICAL HISTORY OF cholecystecomy PAST SURGICAL HISTORY OF stent in sphincter of ode PAST SURGICAL HISTORY OF tubal ligation PAST SURGICAL HISTORY OF right foot bunion surgery ALLERGIES Allergen Reactions Soap Rash With Ann Marie and Tide specifically. Seasonal Allergies Unknown Coughing and congestion Grass Pollen Unknown House Dust Rash Tree, [place] Rash Current Outpatient Medications on File Prior to Visit Medication Sig brexpiprazole (REXULTI) 1 mg tablet Take 1 tablet by mouth once daily. clonazePAM (KLONOPIN) 0.5 mg tablet Take 1 tablet by mouth at bedtime as needed for anxiety (and sleep difficulties) for up to 30 days. DULoxetine (CYMBALTA) 60 mg capsule Take 1 capsule by mouth once daily. busPIRone (BUSPAR) 7.5 mg tablet Take 1 tablet by mouth two times a day. meloxicam (MOBIC) 15 mg tablet Take 15 mg by mouth once daily. lamoTRIgine (LAMICTAL) 200 mg tablet Take 1 tablet by mouth once daily. (Patient taking differently: Take 100 mg by mouth once daily.) CHOLESTYRAMINE, BULK, MISC Take by mouth. levothyroxine (SYNTHROID) 100 mcg tablet Take 1 tablet by mouth once daily. cholestyramine-sucrose (QUESTRAN) 4 gram powder dicyclomine (BENTYL) 10 mg capsule three times a day. xpqzup-jjggdiyc-isffmny (CREON) 36,000-114,000- 180,000 unit delayed release capsule Take by mouth three times daily with meals. hydrOXYchloroQUINE (PLAQUENIL) 200 mg tablet once daily. cholecalciferol (VITAMIN D3) 400 unit tab 1 tab(s) Cyanocobalamin 250 mcg tab 1 tab(s) multivitamin tablet Take 1 tablet by mouth once daily. acetaminophen (TYLENOL) 500 mg tablet Take by mouth every 8 hours as needed. gabapentin (NEURONTIN) 300 mg capsule Take 400 mg by mouth three times daily. No current facility-administered medications on file prior to visit. ROS: See HPI PFSH: See HPI VITAL SIGNS: 03/25/24 1434 BP: 156/76 Pulse: 64 Resp: 18 Weight: 100.9 kg (222 lb 6.4 oz) Last 3 Encounter BP Readings: Date: BP: 01/29/2024 142/70 01/16/2024 132/78 10/23/2023 138/62 MENTAL STATUS EXAMINATION: Appearance: Well dressed, well groomed Behavior: Behaves appropriately during the encounter Social relatedness: Concerned Speech/Language: The patient demonstrates appropriate tone, prosody, carlton, phonetics, and syntax Mood: Distressed Affect: Full and appropriate to topic Orientation: Person, Place, Time and Situation Associations: Intact and linear Hallucinations: None Delusions: None Suicidal Ideation: No suicidal ideation, intent or plan. Homicidal Ideation: No homicidal ideation, intent or plan. Insight: Appropriate Judgment: Appropriate DATA REVIEWED: Psychiatric scales, Electronic medical record, and The PDMP report was reviewed and found to be appropriate without any signs of misuse or diversion. DIAGNOSIS: Medication side effect, initial encounter (primary encounter diagnosis) Cognitive change Major depressive disorder, recurrent episode, moderate (hcc) Wolfgang (generalized anxiety disorder) Encounter for long-term (current) use of medications Fall (on) (from) other stairs and steps, initial encounter Drug-induced tremor GAF: -50-41 Serious symptoms or any serious impairment in social, occupational or school functioning. TREATMENT PLAN: Gradually taper off Lamictal as discussed due to the patient possibly struggling with cognitive side effects from the medication. Continue Rexulti to address depressive symptoms. Continue Cymbalta at the current dose to address anxiety symptoms. Continue Buspar at the same dose to address anxiety symptoms. Utilize Klonopin only as needed to manage severe anxiety and sleep difficulties. Continue individual psychotherapy with her routine provider. MEDICATION CHANGES: See above. Risks and benefits of the medication, including any black box warnings, were discussed with the patient. Patient is aware to reach out with any questions, concerns, or worsening of symptoms prior to the next appointment. Patient educated on risks of substance use in combination with medications and advised that any substance use along with medications may alter their effectiveness. Patient denies any involuntary movement related side effects. Follow Up: 4 weeks Medical Decision Making: Problems: Moderate: 2+ stable chronic illnesses High: Chronic illness with severe change Data: Unique source(s) for external note(s) reviewed: 3+ Unique test result(s) reviewed: 3+ Independent interpretation of test from other physician/QHCP Risk: High: High risk from testing/treatment and Drug therapy requiring intensive monitoring Medical Decision Making Level: 5 - High ADD ON PSYCHOTHERAPY CODE : No SIGNATURE: Catarina Fitch APRN.CNP PATIENT NAME: Abel Lyles DATE: March 25, 2024 TIME: 3:00 PM documented in this encounterSelect [facility] [place] NoteHNO ID: [id number] Author: CATARINA FITCH APRN.CNP Service: ? Author Type: Nurse Practitioner Type: Progress Notes Filed: 04/01/2024 02:51 Note Text: FOLLOW UP - PSYCHIATRIC PROGRESS NOTE PATIENT: Abel Lyles DATE: March 25, 2024 Visit Type:In person All information is from Patient report except when noted. This evaluation is NOT intended for forensic, disability or child custody purposes. CC: Presenting today for follow up regarding psychiatric medication management. HPI: Treatment Plan from Last Visit on 01/29/2024: TREATMENT PLAN: Patient called and verified the medications that she is currently taking. Has been taking Lamictal 200 mg, Cymbalta 60 mg, Rexulti 0.5 mg, and Buspar 7.5 mg. Patient has been asked to increase the Rexulti dose to 1 mg to see if that helps address the depressive symptoms better. Utilize Clonazepam 0.5 mg as needed to manage severe symptoms of anxiety that interfere with sleep. Patient rarely uses this medication. Continue individual psychotherapy with Dr. Becker. Today Abel shares that she is taking all her medications consistently. Taking clonazepam 0.5 mg about 2 times a week to address anxiety concerns that get in the way of her sleep. Takes Buspar morning and night. Abel shares that I am concerned about myself doing weird things. I have a lot of confusion about where things are and when I am doing something. When I am driving, sometimes, I will forget how to get there. I can't find the letters on the keyboard and it makes me really frustrated and anxious. Some days she over sleeps. I cancelled an appointment and slept around 18 hours. Shares that these cognitive concerns have been more insidious but more bothersome in the past month. Shares that she had a fall going down her basement. I didn't tell anyone. Hit the side of her face and had some jaw pain. Has noticed tremor in her hand and her chin. Was present and is more noticeable now. 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 I don't know if its my meds or not but I am not okay. Discussed the effects and side effects of all the psychiatric medications. Takes Gabapentin 400 mg three times daily through pain management. Has been on gabapentin for years. The stimulator has helped her back pain. Interval Progress: Worse PATIENT DATA: Generalized Anxiety Disorder Scale (WOLFGANG-7) 01/22/2024 01/29/2024 03/25/2024 WOLFGANG - 7 SCORES Score 7 9 20 (0-4) minimal anxiety, (5-9) mild anxiety, (10-14) moderate anxiety, (15-21) severe anxiety Patient Health Questionnaire (PHQ-9) 01/22/2024 01/29/2024 03/25/2024 PHQ-9 Score 10 10 20 (0-4) minimal depression, (5-9) mild depression, (10-14) moderate depression, (15-19) moderately severe depression, (20-27) severe depression PAST MEDICAL HISTORY Diagnosis Date Hypothyroidism PMH - PAST MEDICAL HISTORY OF seasonal allergies PMH - PAST MEDICAL HISTORY OF tension headaches PMH - PAST MEDICAL HISTORY OF tension in shoulders PMH - PAST MEDICAL HISTORY OF pancreatitis PMH - PAST MEDICAL HISTORY OF ibs PMH - PAST MEDICAL HISTORY OF chronic epigastric pain PMH - PAST MEDICAL HISTORY OF reset broken nose PMH - PAST MEDICAL HISTORY OF arthritis PMH - PAST MEDICAL HISTORY OF depression PAST SURGICAL HISTORY Procedure Laterality Date ARTHRP KNE CONDYLEANDPLATU MEDIALANDLAT COMPARTMENTS Knee replacement, total, both knee's PAST SURGICAL HISTORY OF cholecystecomy PAST SURGICAL HISTORY OF stent in sphincter of ode PAST SURGICAL HISTORY OF tubal ligation PAST SURGICAL HISTORY OF right foot bunion surgery ALLERGIES Allergen Reactions Soap Rash With Ann Marie and Tide specifically. Seasonal Allergies Unknown Coughing and congestion Grass Pollen Unknown House Dust Rash Tree, [place] Rash Current Outpatient Medications on File Prior to Visit Medication Sig brexpiprazole (REXULTI) 1 mg tablet Take 1 tablet by mouth once daily. clonazePAM (KLONOPIN) 0.5 mg tablet Take 1 tablet by mouth at bedtime as needed for anxiety (and sleep difficulties) for up to 30 days. DULoxetine (CYMBALTA) 60 mg capsule Take 1 capsule by mouth once daily. busPIRone (BUSPAR) 7.5 mg tablet Take 1 tablet by mouth two times a day. meloxicam (MOBIC) 15 mg tablet Take 15 mg by mouth once daily. lamoTRIgine (LAMICTAL) 200 mg tablet Take 1 tablet by mouth once daily. (Patient taking differently: Take 100 mg by mouth once daily.) CHOLESTYRAMINE, BULK, MISC Take by mouth. levothyroxine (SYNTHROID) 100 mcg tablet Take 1 tablet by mouth once daily. cholestyramine-sucrose (QUESTRAN) 4 gram powder dicyclomine (BENTYL) 10 mg capsule three times a day. fqlcvm-quypzkhc-iwaskwr (CREON) 36,000-114,000- 180,000 unit delayed release capsule Take by mouth three times daily with meals. hydrOXYchloroQUINE (PLAQUENIL) 200 mg tablet once daily. cholecalciferol (VITAMIN D3) 400 unit tab 1 tab(s) (more content not included)...[facility]10-11-2024 Telephone encounter Note* Telephone Encounter - Catarina Fitch APRN.LINDA - 03/21/2024 11:19 AM EDT Glad that patient has been scheduled for an appointment next week. Will review all the medications in detail at the appointment to discuss cognitive side effects. [facility]10-11-2024 Miscellaneous Notes* Telephone Encounter - Catarina Fitch APRN.CNP - 03/21/2024 11:19 AM EDT Glad that patient has been scheduled for an appointment next week. Will review all the medications in detail at the appointment to discuss cognitive side effects. * Telephone Encounter - Fatuma Jewell LPN - 03/21/2024 10:26 AM EDT Patient appointment scheduled. Fatuma Jewell LPN * Telephone Encounter - Ifrah Carr RN - 03/21/2024 10:16 AM EDT Patient calls back to report that Appointment on SundayMarch 25 at 2 pm will be fine. Ifrah Carr RN * Telephone Encounter - Fatuma Jewell LPN - 03/21/2024 9:58 AM EDT Patient is complaining of being confused, losing thing or forgetful. Wondering if the medication iscausing this? Takes: Rexulti 1 mg tab daily, Buspar 7.5 mg BID, Klonopin 0.5 mg tab Q HS PRN. Patient's last appt was 01/29/24 and was to see you in 2 months or sooner if needed and nothing was scheduled. I'm going to schedule her for your first available. Fatuma Jewell LPN [facility] Telephone encounter Note * Telephone Encounter - Fatuma Jewell LPN - 03/21/2024 10:26 AM EDT Patient appointment scheduled. Fatuma Jewell LPN [facility]10-11-2024 Telephone encounter Note* Telephone Encounter - Ifrah Carr RN - 03/21/2024 10:16 AM EDT Patient calls back to report that Appointment on SundayMarch 25 at 2 pm will be fine. Ifrah Carr RN [facility]10-11-2024 Telephone encounter Note* Telephone Encounter - Fatuma Jewell LPN - 03/21/2024 9:58 AM EDT Patient is complaining of being confused, losing thing or forgetful. Wondering if the medication iscausing this? Takes: Rexulti 1 mg tab daily, Buspar 7.5 mg BID, Klonopin 0.5 mg tab Q HS PRN. Patient's last appt was 01/29/24 and was to see you in 2 months or sooner if needed and nothing was scheduled. I'm going to schedule her for your first available. Fatuma Jewell LPN [facility]09-19-2024 NoteHNO ID: [id number] Author: DORYS JADE, ? Service: ? Author Type: Physician Type: Progress Notes Filed: 02/28/2024 08:17 Note Text: Subjective: Patient presents to clinic c/o painful toenails. They state that the nails are especially painful with shoe gear and pressure. Patient states that nails b/l hallux are painful. No other pedal complaints at this time. Patient states no change in medications or medical history since last visit. Objective: Patient presents to clinic ambulating in [facility] Vasc: DP and PT pulses are palpable bilateral. CFT is less than 5 seconds bilateral. Skin temperature is warm to cool proximal to distal bilateral. There is no edema or varicosities noted. Neuro: Protective sensation is intact to the foot and toes when tested with the 5.07 SWM bilateral. The hallux is downgoing bilateral. Derm: Nails 1-5 b/l are painful, discolored-yellow, thick, crumbly, dystrophic and with subungal debris. Skin is of normal turgor, texture and hair growth is present bilateral. There are no hyperkeratosis, ulcerations, scars, verruca or other lesions noted. Ortho: Muscle strength is 5/5 for all pedal groups tested. Ankle joint DF is full with the knee extended with no pain or crepitus noted. 1st MPJ ROM is full bilateral. Assessment: (B35.1) Onychomycosis (primary encounter diagnosis) (M79.675) Pain in toe of left foot (M79.674) Pain in toe of right foot Plan: Patient was seen and evaluated. Nails 1-5 bilateral were debrided in length and thickness. Discussed removal of toenails as an option. Patient is interested in conservative care/debridement at this time. Patient is to RTC in 3-4 months. Dorys Jade [facility]09-19-2024 History of Present illness Narrative* Dorys Jade - 02/28/2024 8:09 AM EDT Subjective: Patient presents to clinic c/o painful toenails. They state that the nails are especially painful with shoe gear and pressure. Patient states that nails b/l hallux are painful. No other pedal complaints at this time. Patient states no change in medications or medical history since last visit. Objective: Patient presents to clinic ambulating in [facility] Vasc: DP and PT pulses are palpable bilateral. CFT is less than 5 seconds bilateral. Skin temperature is warm to cool proximal to distal bilateral. There is no edema or varicosities noted. Neuro: Protective sensation is intact to the foot and toes when tested with the 5.07 SWM bilateral.The hallux is downgoing bilateral. Derm: Nails 1-5 b/l are painful, discolored-yellow, thick, crumbly, dystrophic and with subungal debris. Skin is of normal turgor, texture and hair growth is present bilateral. There are no hyperkeratosis, ulcerations, scars, verruca or other lesions noted. Ortho: Muscle strength is 5/5 for all pedal groups tested. Ankle joint DF is full with the knee extended with no pain or crepitus noted. 1st MPJ ROM is full bilateral. Assessment: (B35.1) Onychomycosis (primary encounter diagnosis) (M79.675) Pain in toe of left foot (M79.674) Pain in toe of right foot Plan: Patient was seen and evaluated. Nails 1-5 bilateral were debrided in length and thickness. Discussed removal of toenails as an option. Patient is interested in conservative care/debridement at this time. Patient is to RTC in 3-4 months. Dorys Jade DPM * Beatriz Wei RN - 02/28/2024 8:03 AM EDT Patient presents with: Left Foot - Established Patient, Follow Up, nail care Right Foot - Established Patient, Follow Up, nail care Patient presents for follow up nail care. [facility] 11/27/23 documented in this encounter[facility] NoteHNO ID: [id number] Author: BEATRIZ WEI RN Service: ? Author Type: Registered Nurse Type: Progress Notes Filed: 02/28/2024 08:17 Note Text: Patient presents with: Left Foot - Established Patient, Follow Up, nail care Right Foot - Established Patient, Follow Up, nail care Patient presents for follow up nail care. [facility] 11/27/23[facility]09-05-2024 Telephone encounter Note* Telephone Encounter - Lilliam Love LPN - 02/14/2024 11:54 AM EDT Patient notified I faxed a clarified EMG order to [facility] today per her request. Patient stated she had not heard anything from them. I let patient know their scheduling department asked forclarification on her orders that I just faxed today. I asked patient to call [facility] scheduling to schedule EMG and if there is any issues to let our office know. Patient verbalized megan meyers, thanked me for the call and our call ended. Lilliam Love LPN February 14, 2024 11:57 AM [facility]09-05-2024 Miscellaneous Notes* Telephone Encounter - Lilliam Love LPN - 02/14/2024 11:54 AM EDT Patient notified I faxed a clarified EMG order to [facility] today per her request. Patient stated she had not heard anything from them. I let patient know their scheduling department asked forclarification on her orders that I just faxed today. I asked patient to call [facility] scheduling to schedule EMG and if there is any issues to let our office know. Patient verbalized megan meyers, thanked me for the call and our call ended. Lilliam Love LPN February 14, 2024 11:57 AM documented in [facility] Telephone encounter Note * Telephone Encounter - Lilliam Love LPN - 02/14/2024 11:50 AM EDT Clarified/updated EMG orders successfully faxed to [facility] scheduling today. Fax confirmation received. All documentation to be scanned into patient's chart. Lilliam Love LPN February 14, 2024 11:53 AM [facility]09-05-2024 Miscellaneous Notes* Telephone Encounter - Lilliam Love LPN - 02/14/2024 11:50 AM EDT Clarified/updated EMG orders successfully faxed to [facility] scheduling today. Fax confirmation received. All documentation to be scanned into patient's chart. Lilliam Love LPN February 14, 2024 11:53 AM documented in this encounterSelect [facility] Instructions* Patient Instructions* Catarina Fitch APRN.TWISTHAND - 02/01/2024 10:24 AM EDT Pari Astudillo, It was good to talk with you today. Below is a summary of the plan that we discussed during your appointment for reference. Of course, if you have any questions or concerns do not hesitate to reach out to me via a message or call. Catarina Aquino APRN.TWISTHAND PLAN AND FOLLOW UP: TREATMENT PLAN: Patient called and verified the medications that she is currently taking. Has been taking Lamictal 200 mg, Cymbalta 60 mg, Rexulti 0.5 mg, and Buspar 7.5 mg. Patient has been asked to increase the Rexulti dose to 1 mg to see if that helps address the depressive symptoms better. Utilize Clonazepam 0.5 mg as needed to manage severe symptoms of anxiety that interfere with sleep.Patient rarely uses this medication. Continue individual psychotherapy with Dr. Becker. For those experiencing a suicidal crisis: --call the National Suicide Prevention Lifeline at 050 (373-012-2061) --text the Crisis Text Line (text HOME to 227121) --call 701 and let them know you are having a mental health crisis or go to your nearest Emergency Room for stabilization. --You can also call Mobile Crisis at [phone]. Next appointment: --Schedule in 2 months or sooner if needed -- You may call the department appointment line at [phone] to schedule your appointment. -- Please call my nurse at [phone] or send me a message in MyChart with any questions or concerns between appointments. documented in this encounter[facility] Telephone encounter Note * Telephone Encounter - Maral Cat MA - 01/30/2024 2:47 PM EDT Items addressed in this encounter: Telephone Encounter Patient requested that neurology referral to be sent to Dr Melissa Abarca. I am unable to locate a neurologist with that name. I called pt and asked her is she could give us the office ph number for that DR. She stated that she will call back with that info Able to close encounter. Maral Cat MA January 30, 2024 2:47 PM 2:47 PM [facility]08-21-2024 Miscellaneous Notes* Telephone Encounter - Maral Cat MA - 01/30/2024 2:47 PM EDT Items addressed in this encounter: Telephone Encounter Patient requested that neurology referral to be sent to Dr Melissa Abarca. I am unable to locate a neurologist with that name. I called pt and asked her is she could give us the office ph number for that DR. She stated that she will call back with that info Able to close encounter. Maral Cat MA January 30, 2024 2:47 PM 2:47 PM documented in this encounterSelect [facility]24 NoteHNO ID: [id number] Author: CATARINA FITCH APRN.LINDA Service: ? Author Type: Nurse Practitioner Type: Progress Notes Filed: 02/01/2024 10:24 Note Text: FOLLOW UP - PSYCHIATRIC PROGRESS NOTE PATIENT: Abel Lyles DATE: January 29, 2024 Visit Type:In person All information is from Patient report except when noted. This evaluation is NOT intended for forensic, disability or child custody purposes. CC: Presenting today for follow up regarding psychiatric medication management. HPI: Treatment Plan from Last Visit on 10/23/2023: Decrease Cymbalta to just 60 mg due to lack of efficacy in managing depression and contributing to dry mouth and constipation related side effect. Continue Rexulti, Remeron, Buspar, and Lamictal at the same dose. Continue weekly psychotherapy with her current provider. Today Abel shares that there are some new things with her physical health. Had to get an ankle brace but it has not been as helpful as anticipated. Was able to spend some time with her grandson Sheldon yesterday. Shelodn told her that his dad is getting all his teeth pulled out for a denture. Sheldon also told her that his dad and his step-mom are getting a divorce. She is unsure if this will mean that son will speak with her again as his was the one that was creating the distance and being very mean towards the patient. She does have an appointment with her psychologist after her visit with this provider. Discussed processing this with that provider. She shares that she has been noticing that she is arguing a lot with herself in her head. I talk myself into and out of a lot of things. She did not go to worship this past week. Told people that it was her Gut that was bothering her. She appears to struggle in having difficulty with doing things that she was able to in the past. Appears to have some increase in depressive symptoms. Medication reconciliation was completed in detail. Unsure if she is taking Lamictal 100 mg or 200 mg. It appears to be reported as 100 mg but patient is unsure. Patient shares that she will check her medication bottles at home this afternoon and call the provider. She shares that she takes Hydroxyzine 10 mg as needed to manage anxiety symptoms. Patient has not been taking Remeron and at first she was taking it only as needed but has not taken it in a while. Unable to recall when she stopped taking it. Discussed how stopping it could have contributed to worsening of depressive symptoms especially since we also lowered the Cymbalta due to the anti-cholinergic side effects. Patient has been consistent in taking Rexulti and denies any concerning side effects from that medication. Discussed the possibility of increasing this medication to address depressive symptoms if she is already taking 200 mg dose. Interval Progress: Slightly worse PATIENT DATA: Generalized Anxiety Disorder Scale (WOLFGANG-7) 10/17/2023 01/22/2024 01/29/2024 WOLFGANG - 7 SCORES Score 7 7 9 (0-4) minimal anxiety, (5-9) mild anxiety, (10-14) moderate anxiety, (15-21) severe anxiety Patient Health Questionnaire (PHQ-9) 10/17/2023 01/22/2024 01/29/2024 PHQ-9 Score 12 10 10 (0-4) minimal depression, (5-9) mild depression, (10-14) moderate depression, (15-19) moderately severe depression, (20-27) severe depression PAST MEDICAL HISTORY No date: Hypothyroidism No date: PMH - PAST MEDICAL HISTORY OF Comment: seasonal allergies No date: PMH - PAST MEDICAL HISTORY OF Comment: tension headaches No date: PMH - PAST MEDICAL HISTORY OF Comment: tension in shoulders No date: PMH - PAST MEDICAL HISTORY OF Comment: pancreatitis No date: PMH - PAST MEDICAL HISTORY OF Comment: ibs No date: PMH - PAST MEDICAL HISTORY OF Comment: chronic epigastric pain No date: PMH - PAST MEDICAL HISTORY OF Comment: reset broken nose No date: PMH - PAST MEDICAL HISTORY OF Comment: arthritis No date: PMH - PAST MEDICAL HISTORY OF Comment: depression PAST SURGICAL HISTORY No date: ARTHRP KNE CONDYLEANDPLATU MEDIALANDLAT COMPARTMENTS Comment: Knee replacement, total, both knee's No date: PAST SURGICAL HISTORY OF Comment: cholecystecomy No date: PAST SURGICAL HISTORY OF Comment: stent in sphincter of ode No date: PAST SURGICAL HISTORY OF Comment: tubal ligation No date: PAST SURGICAL HISTORY OF Comment: right foot bunion surgery ALLERGIES Allergen Reactions Soap Rash With Ann Marie and Tide specifically. Seasonal Allergies Unknown Coughing and congestion Grass Pollen Unknown House Dust Rash Tree, [place] Rash Current Outpatient Medications on File Prior to Visit Medication Sig mirtazapine (REMERON) 15 mg tablet take 1 tablet at bedtime REXULTI 0.5 mg tablet take 1 tablet once daily DULoxetine (CYMBALTA) 60 mg capsule TAKE 1 CAPSULE ONCE DAILY meloxicam (MOBIC) 15 mg tablet Take 15 mg by mouth once daily. busPIRone (BUSPAR) 7.5 mg tablet Take 1 tablet by mouth two t (more content not included)...[facility]08-20-2024 History of Present illness Narrative* Catraina Fitch, POWDER ROOM ATTENDANT.TWISTHAND - 01/29/2024 8:11 AM EDT Images from the original note were not included. FOLLOW UP - PSYCHIATRIC PROGRESS NOTE PATIENT: Abel Lyles DATE: January 29, 2024 Visit Type:In person All information is from Patient report except when noted. This evaluation is NOT intended for forensic, disability or child custody purposes. CC: Presenting today for follow up regarding psychiatric medication management. HPI: Treatment Plan from Last Visit on 10/23/2023: Decrease Cymbalta to just 60 mg due to lack of efficacy in managing depression and contributing to dry mouth and constipation related side effect. Continue Rexulti, Remeron, Buspar, and Lamictal at the same dose. Continue weekly psychotherapy with her current provider. Today Abel shares that there are some new things with her physical health. Had to get an ankle brace but it has not been as helpful as anticipated. Was able to spend some time with her grandson Sheldon yesterday. Sheldon told her that his dad is getting all his teeth pulled out for a denture. Sheldon also told her that his dad and his step-mom are getting a divorce. She is unsure if this will mean that son will speak with her again as his was the one that wascreating the distance and being very mean towards the patient. She does have an appointment with her psychologist after her visit with this provider. Discussed processing this with that provider. She shares that she has been noticing that she is arguing a lot with herself in her head. I talk myself into and out of a lot of things. She did not go to worship this past week. Told people that it was her Gut that was bothering her. She appears to struggle in having difficulty with doing things that she was able to in the past. Appears to have some increase in depressive symptoms. Medication reconciliation was completed in detail. Unsure if she is taking Lamictal 100 mg or 200 mg. It appears to be reported as 100 mg but patient is unsure. Patient shares that she will check her medication bottles at home this afternoon and callthe provider. She shares that she takes Hydroxyzine 10 mg as needed to manage anxiety symptoms. Patient has not been taking Remeron and at first she was taking it only as needed but has not takenit in a while. Unable to recall when she stopped taking it. Discussed how stopping it could have contributed to worsening of depressive symptoms especially since we also lowered the Cymbalta due to the anti- cholinergic side effects. Patient has been consistent in taking Rexulti and denies any concerning side effects from that medication. Discussed the possibility of increasing this medication to address depressive symptoms if she is already taking 200 mg dose. Interval Progress: Slightly worse PATIENT DATA: Generalized Anxiety Disorder Scale (WOLFGANG-7) 10/17/2023 01/22/2024 01/29/2024 WOLFGANG - 7 SCORES Score 7 7 9 (0-4) minimal anxiety, (5-9) mild anxiety, (10-14) moderate anxiety, (15-21) severe anxiety Patient Health Questionnaire (PHQ-9) 10/17/2023 01/22/2024 01/29/2024 PHQ-9 Score 12 10 10 (0-4) minimal depression, (5-9) mild depression, (10-14) moderate depression, (15-19) moderately severe depression, (20-27) severe depression PAST MEDICAL HISTORY No date: Hypothyroidism No date: PMH - PAST MEDICAL HISTORY OF Comment: seasonal allergies No date: PMH - PAST MEDICAL HISTORY OF Comment: tension headaches No date: PMH - PAST MEDICAL HISTORY OF Comment: tension in shoulders No date: PMH - PAST MEDICAL HISTORY OF Comment: pancreatitis No date: PMH - PAST MEDICAL HISTORY OF Comment: ibs No date: PMH - PAST MEDICAL HISTORY OF Comment: chronic epigastric pain No date: PMH - PAST MEDICAL HISTORY OF Comment: reset broken nose No date: PMH - PAST MEDICAL HISTORY OF Comment: arthritis No date: PMH - PAST MEDICAL HISTORY OF Comment: depression PAST SURGICAL HISTORY No date: ARTHRP KNE CONDYLE&PLATU MEDIAL&LAT COMPARTMENTS Comment: Knee replacement, total, both knee's No date: PAST SURGICAL HISTORY OF Comment: cholecystecomy No date: PAST SURGICAL HISTORY OF Comment: stent in sphincter of ode No date: PAST SURGICAL HISTORY OF Comment: tubal ligation No date: PAST SURGICAL HISTORY OF Comment: right foot bunion surgery ALLERGIES Allergen Reactions Soap Rash With Ann Marie and Tide specifically. Seasonal Allergies Unknown Coughing and congestion Grass Pollen Unknown House Dust Rash Tree, [place] Rash Current Outpatient Medications on File Prior to Visit Medication Sig mirtazapine (REMERON) 15 mg tablet take 1 tablet at bedtime REXULTI 0.5 mg tablet take 1 tablet once daily DULoxetine (CYMBALTA) 60 mg capsule TAKE 1 CAPSULE ONCE DAILY meloxicam (MOBIC) 15 mg tablet Take 15 mg by mouth once daily. busPIRone (BUSPAR) 7.5 mg tablet Take 1 tablet by mouth two times a day. lamoTRIgine (LAMICTAL) 200 mg tablet Take 1 tablet by mouth once daily. (Patient taking differently: Take 100 mg by mouth once daily.) levothyroxine (SYNTHROID) 100 mcg tablet Take 1 tablet by mouth once daily. cholestyramine-sucrose (QUESTRAN) 4 gram powder dicyclomine (BENTYL) 10 mg capsule three times a day. flwbuu-pwmyuvla-hsifvei (CREON) 36,000-114,000- 180,000 unit delayed release capsule Take by mouth three times daily with meals. hydrOXYchloroQUINE (PLAQUENIL) 200 mg tablet once daily. cholecalciferol (VITAMIN D3) 400 unit tab 1 tab(s) multivitamin tablet Take 1 tablet by mouth once daily. acetaminophen (TYLENOL) 500 mg tablet Take by mouth every 8 hours as needed. gabapentin (NEURONTIN) 300 mg capsule Take 400 mg by mouth three times daily. CHOLESTYRAMINE, BULK, MISC Take by mouth. Cyanocobalamin 250 mcg tab 1 tab(s) No current facility-administered medications on file prior to visit. ROS: See HPI PFSH: See HPI VITAL SIGNS: 01/29/24 0801 BP: 142/70 Pulse: (!) 56 Resp: 16 Weight: 98.9 kg (218 lb) Last 3 Encounter BP Readings: Date: BP: 01/29/2024 142/70 01/16/2024 132/78 10/23/2023 138/62 MENTAL STATUS EXAMINATION: Appearance: Well dressed, well groomed Behavior: Behaves appropriately during the encounter Social relatedness: Euthymic Speech/Language: The patient demonstrates appropriate tone, prosody, carlton, phonetics, and syntax Mood: Sad and concerned Affect: Full and appropriate to topic Orientation: Person, Place, Time and Situation Associations: Intact and linear Hallucinations: None Delusions: None Suicidal Ideation: No suicidal ideation, intent or plan. Homicidal Ideation: No homicidal ideation, intent or plan. Insight: Appropriate Judgment: Appropriate DATA REVIEWED: Psychiatric scales, Electronic medical record, and PMDP report. The PDMP report was reviewed and found to be appropriate without any signs of misuse or diversion. DIAGNOSIS: Major depressive disorder, recurrent episode, moderate (hcc) (primary encounter diagnosis) Wolfgang (generalized anxiety disorder) GAF: -60-51 Moderate symptoms or moderate difficulty in social, occupational or school functioning. TREATMENT PLAN: Patient called and verified the medications that she is currently taking. Has been taking Lamictal 200 mg, Cymbalta 60 mg, Rexulti 0.5 mg, and Buspar 7.5 mg. Patient has been asked to increase the Rexulti dose to 1 mg to see if that helps address the depressive symptoms better. Utilize Clonazepam 0.5 mg as needed to manage severe symptoms of anxiety that interfere with sleep.Patient rarely uses this medication. Continue individual psychotherapy with Dr. Becker. MEDICATION CHANGES: - Reviewed Lamictal titration & risk of severe rash. Instructed to call [facility] if this occurs. See above Risks and benefits of the medication, including any black box warnings, were discussed with the patient. Patient is aware to reach out with any questions, concerns, or worsening of symptoms prior to the next appointment. Patient educated on risks of substance use in combination with medications and advised that any substance use along with medications may alter their effectiveness. Patient denies any involuntary movement related side effects. Follow Up: 2 months or sooner if needed. I spent a total of 40 minutes on the date of the service which included preparing to see the patient, [id number] patient care, completing clinical documentation, and counseling and educating the patient/family/caregiver, ordering medications/labs, communicating with other health care providers and coordination of care. ADD ON PSYCHOTHERAPY CODE : No SIGNATURE: Catarina Fitch APRN.CNP PATIENT NAME: Abel Lyles DATE: January 29, 2024 TIME: 8:12 AM [facility] Telephone encounter Note * Telephone Encounter - Autumn Dickens - 01/28/2024 8:22 AM EDT Last 10/23/23 TREATMENT PLAN: 1.Decrease Cymbalta to just 60 mg due to lack of efficacy in managing depression and contributing to dry mouth and constipation related side effect. 2.Continue Rexulti, Remeron, Buspar, and Lamictal at the same dose. 3.Continue weekly psychotherapy with her current provider. Next: 01/29/24 [facility] Miscellaneous Notes* Telephone Encounter - Autumn Dickens - 01/28/2024 8:22 AM EDT Last 10/23/23 TREATMENT PLAN: 1.Decrease Cymbalta to just 60 mg due to lack of efficacy in managing depression and contributing to dry mouth and constipation related side effect. 2.Continue Rexulti, Remeron, Buspar, and Lamictal at the same dose. 3.Continue weekly psychotherapy with her current provider. Next: 01/29/24 documented in [facility] encounter[facility] [place] Telephone encounter Note * Telephone Encounter - Melissa Lopes MD - 01/24/2024 4:40 PM EDT Thanks order is signed [facility]08-15-2024 Miscellaneous Notes* Telephone Encounter - Melissa Lopes MD - 01/24/2024 4:40 PM EDT Thanks order is signed * Telephone Encounter - Mitzi Thomas LPN - 01/24/2024 4:07 PM EDT Order entered. Please sign. I spoke with Abel and told her Dr Lopes still wants her to get the EMG test done. She agreed and wants to get it done at [facility]. I faxed the EMG order to [facility] fax#[phone]. Mitzi Thomas LPN January 24, 2024 4:08 PM * Telephone Encounter - Melissa Lopes MD - 01/24/2024 1:36 PM EDT Okay to enter consult. Patient should still get her EMG /nerve conduction study * Telephone Encounter - Mitzi Thomas LPN - 01/24/2024 12:27 PM EDT Abel Lyles called today. : 1950 Allergies: Soap, Seasonal Allergies, and Grass Pollen (home) [phone] (cell) Reason for call: Abel called asking for a referral to Neurology / Dr Melissa King [address] [place] [address], [address] [place] [address] fax#[phone]. They need the referral, demographics, office notes, and any imaging reports. Patient was seen in office for bilateral hand numbness and tingling on 01/16/24. Patient last appointment: 01/16/2024 The patients preferred pharmacy has been captured for this encounter? no Mitzi Thomas LPN documented in this encounter[facility] [place] Telephone encounter Note * Telephone Encounter - Mitzi Thomas LPN - 01/24/2024 4:07 PM EDT Order entered. Please sign. I spoke with Abel and told her Dr Lopes still wants her to get the EMG test done. She agreed and wants to get it done at [facility]. I faxed the EMG order to [facility] fax#[phone]. Mitzi Thomas LPN January 24, 2024 4:08 PM [facility] Telephone encounter Note* Telephone Encounter - Melissa Lopes MD - 01/24/2024 1:36 PM EDT Okay to enter consult. Patient should still get her EMG /nerve conduction study [facility] Telephone encounter Note* Telephone Encounter - Mitzi Thomas LPN - 01/24/2024 12:27 PM EDT Abelsaira Lyles called today. : 1950 Allergies: Soap, Seasonal Allergies, and Grass Pollen (home) [phone] (cell) Reason for call: Abel called asking for a referral to Neurology / Dr Melissa King [address] [place] [address], [address]#[phone] fax#[phone]. They need the referral, demographics, office notes, and any imaging reports. Patient was seen in office for bilateral hand numbness and tingling on 01/16/24. Patient last appointment: 01/16/2024 The patients preferred pharmacy has been captured for this encounter? no Mitzi Thomas LPN [facility] Telephone encounter Note* Telephone Encounter - Ophelia Szymanski - 01/23/2024 8:26 AM EDT ANNUAL MEDICARE WELLNESS VISIT OUTREACH Outreach attempt to contact patient and schedule Medicare wellness. Patient identified by name and date of : YES Outreach outcome: Made contact: Spoke to: Patient This is Ophelia Szymanski calling from [facility]. Dr. Melissa Lopes MD noticed that you're due for your Medicare wellness visit. They asked me to call and assist you with scheduling an appointment with your primary care office. Can I set that up for you? Follow up needed:No If the patient asks what a Medicare Wellness visit is: The Medicare wellness visit isn't an exam. It is a great way to get up-to-date with your provider'scare team. The purpose of the Annual Wellness Visit under Medicare is to paint a picture of your current stateof health and to create a baseline for future care. Any additional test or labs that may be required as a result of the findings of your annual wellness visit would be billed separately by your doctor and would fall under a different benefit than yourannual wellness visit. Medicare also covers a number of other preventative services at no cost such as preventative cancerscreenings, bone density measurement, and flu shots. Your visit may include: A review of your medical and family history. A review of your current providers and prescriptions. Height, weight, blood pressure, and other routine measurements. Personalized health advice. A list of risk factors and treatment options for you. A screening schedule (like a checklist) for appropriate preventive services. Ophelia Szymanski January 23, 2024 8:29 AM [facility]-14-2024 Miscellaneous Notes* Telephone Encounter - Ophelia Szymanski - 01/23/2024 8:26 AM EDT ANNUAL MEDICARE WELLNESS VISIT OUTREACH Outreach attempt to contact patient and schedule Medicare wellness. Patient identified by name and date of : YES Outreach outcome: Made contact: Spoke to: Patient This is Ophelia Szymanski calling from [facility]. Dr. Melissa Lopes MD noticed that you're due for your Medicare wellness visit. They asked me to call and assist you with scheduling an appointment with your primary care office. Can I set that up for you? Follow up needed:No If the patient asks what a Medicare Wellness visit is: The Medicare wellness visit isn't an exam. It is a great way to get up-to-date with your provider'scare team. The purpose of the Annual Wellness Visit under Medicare is to paint a picture of your current stateof health and to create a baseline for future care. Any additional test or labs that may be required as a result of the findings of your annual wellness visit would be billed separately by your doctor and would fall under a different benefit than yourannual wellness visit. Medicare also covers a number of other preventative services at no cost such as preventative cancerscreenings, bone density measurement, and flu shots. Your visit may include: A review of your medical and family history. A review of your current providers and prescriptions. Height, weight, blood pressure, and other routine measurements. Personalized health advice. A list of risk factors and treatment options for you. A screening schedule (like a checklist) for appropriate preventive services. Ophelia Szymanski January 23, 2024 8:29 AM documented in this encounterSelect [facility] [place] Telephone encounter Note * Telephone Encounter - Ophelia Szymanski - 01/23/2024 8:20 AM EDT ANNUAL MEDICARE WELLNESS VISIT OUTREACH Outreach attempt to contact patient and schedule Medicare wellness. Patient identified by name and date of : NO Outreach outcome: Unable to make contact: 1st attempt Left message This is Ophelia Szymanski calling from [facility]. Dr. Melissa Lopes MD noticed that you're due for your Medicare wellness visit. They asked me to call and assist you with scheduling an appointment with your primary care office. Can I set that up for you? Follow up needed:No If the patient asks what a Medicare Wellness visit is: The Medicare wellness visit isn't an exam. It is a great way to get up-to-date with your provider'scare team. The purpose of the Annual Wellness Visit under Medicare is to paint a picture of your current stateof health and to create a baseline for future care. Any additional test or labs that may be required as a result of the findings of your annual wellness visit would be billed separately by your doctor and would fall under a different benefit than yourannual wellness visit. Medicare also covers a number of other preventative services at no cost such as preventative cancerscreenings, bone density measurement, and flu shots. Your visit may include: A review of your medical and family history. A review of your current providers and prescriptions. Height, weight, blood pressure, and other routine measurements. Personalized health advice. A list of risk factors and treatment options for you. A screening schedule (like a checklist) for appropriate preventive services. Ophelia Szymanski January 23, 2024 8:21 AM [facility]-14-2024 Miscellaneous Notes* Telephone Encounter - Ophelia Szymanski - 01/23/2024 8:20 AM EDT ANNUAL MEDICARE WELLNESS VISIT OUTREACH Outreach attempt to contact patient and schedule Medicare wellness. Patient identified by name and date of : NO Outreach outcome: Unable to make contact: 1st attempt Left message This is Ophelia Szymanski calling from [facility]. Dr. Melissa Lopes MD noticed that you're due for your Medicare wellness visit. They asked me to call and assist you with scheduling an appointment with your primary care office. Can I set that up for you? Follow up needed:No If the patient asks what a Medicare Wellness visit is: The Medicare wellness visit isn't an exam. It is a great way to get up-to-date with your provider'scare team. The purpose of the Annual Wellness Visit under Medicare is to paint a picture of your current stateof health and to create a baseline for future care. Any additional test or labs that may be required as a result of the findings of your annual wellness visit would be billed separately by your doctor and would fall under a different benefit than yourannual wellness visit. Medicare also covers a number of other preventative services at no cost such as preventative cancerscreenings, bone density measurement, and flu shots. Your visit may include: A review of your medical and family history. A review of your current providers and prescriptions. Height, weight, blood pressure, and other routine measurements. Personalized health advice. A list of risk factors and treatment options for you. A screening schedule (like a checklist) for appropriate preventive services. Ophelia Szymanski January 23, 2024 8:21 AM documented in this encounterSelect [facility] [place] Telephone encounter Note * Telephone Encounter - Autumn Dickens - 01/22/2024 9:47 AM EDT Last: 10/29/23 TREATMENT PLAN: 1.Decrease Cymbalta to just 60 mg due to lack of efficacy in managing depression and contributing to dry mouth and constipation related side effect. 2.Continue Rexulti, Remeron, Buspar, and Lamictal at the same dose. 3.Continue weekly psychotherapy with her current provider. Next: 01/29/24 [facility] Miscellaneous Notes* Telephone Encounter - Autumn Dickens - 01/22/2024 9:47 AM EDT Last: 10/29/23 TREATMENT PLAN: 1.Decrease Cymbalta to just 60 mg due to lack of efficacy in managing depression and contributing to dry mouth and constipation related side effect. 2.Continue Rexulti, Remeron, Buspar, and Lamictal at the same dose. 3.Continue weekly psychotherapy with her current provider. Next: 01/29/24 documented in this encounter[facility] Telephone encounter Note * Telephone Encounter - Ophelia Szymanski - 01/18/2024 2:54 PM EDT ANNUAL MEDICARE WELLNESS VISIT OUTREACH Outreach attempt to contact patient and schedule Medicare wellness. Patient identified by name and date of : NO Outreach outcome: Unable to make contact: 1st attempt Left message This is Ophelia Szymanski calling from [facility]. Dr. Melissa Lopes MD noticed that you're due for your Medicare wellness visit. They asked me to call and assist you with scheduling an appointment with your primary care office. Can I set that up for you? Follow up needed:No If the patient asks what a Medicare Wellness visit is: The Medicare wellness visit isn't an exam. It is a great way to get up-to-date with your provider'scare team. The purpose of the Annual Wellness Visit under Medicare is to paint a picture of your current stateof health and to create a baseline for future care. Any additional test or labs that may be required as a result of the findings of your annual wellness visit would be billed separately by your doctor and would fall under a different benefit than yourannual wellness visit. Medicare also covers a number of other preventative services at no cost such as preventative cancerscreenings, bone density measurement, and flu shots. Your visit may include: A review of your medical and family history. A review of your current providers and prescriptions. Height, weight, blood pressure, and other routine measurements. Personalized health advice. A list of risk factors and treatment options for you. A screening schedule (like a checklist) for appropriate preventive services. Ophelia Szymanski January 18, 2024 2:55 PM [facility]-2024 Miscellaneous Notes* Telephone Encounter - Ophelia Szymanski - 01/18/2024 2:54 PM EDT ANNUAL MEDICARE WELLNESS VISIT OUTREACH Outreach attempt to contact patient and schedule Medicare wellness. Patient identified by name and date of : NO Outreach outcome: Unable to make contact: 1st attempt Left message This is Ophelia Syzmanski calling from [facility]. Dr. Melissa Lopes MD noticed that you're due for your Medicare wellness visit. They asked me to call and assist you with scheduling an appointment with your primary care office. Can I set that up for you? Follow up needed:No If the patient asks what a Medicare Wellness visit is: The Medicare wellness visit isn't an exam. It is a great way to get up-to-date with your provider'scare team. The purpose of the Annual Wellness Visit under Medicare is to paint a picture of your current stateof health and to create a baseline for future care. Any additional test or labs that may be required as a result of the findings of your annual wellness visit would be billed separately by your doctor and would fall under a different benefit than yourannual wellness visit. Medicare also covers a number of other preventative services at no cost such as preventative cancerscreenings, bone density measurement, and flu shots. Your visit may include: A review of your medical and family history. A review of your current providers and prescriptions. Height, weight, blood pressure, and other routine measurements. Personalized health advice. A list of risk factors and treatment options for you. A screening schedule (like a checklist) for appropriate preventive services. Ophelia Szymanski January 18, 2024 2:55 PM documented in this encounterSelect [facility]24 NoteHNO ID: [id number] Author: MELISSA LOPES MD Service: ? Author Type: Physician Type: Progress Notes Filed: 01/20/2024 19:41 Note Text: Annelise Lyles is a 73 year old female.The patient presents today for follow-up for multiple medical problems. See list. Her chronic medical problems have been stable. Her blood pressure is under good control. She has complaint today of bilateral hand numbness and tingling. Review of Systems Constitutional: Negative. HENT: Negative. Eyes: Negative. Respiratory: Negative. Cardiovascular: Negative. Gastrointestinal: Negative. Endocrine: Negative. Genitourinary: Negative. Musculoskeletal: Negative. Skin: Negative. Allergic/Immunologic: Negative. Neurological: Negative. Hematological: Negative. Psychiatric/Behavioral: Negative. PAST SURGICAL HISTORY No date: ARTHRP KNE CONDYLEANDPLATU MEDIALANDLAT COMPARTMENTS Comment: Knee replacement, total, both knee's No date: PAST SURGICAL HISTORY OF Comment: cholecystecomy No date: PAST SURGICAL HISTORY OF Comment: stent in sphincter of ode No date: PAST SURGICAL HISTORY OF Comment: tubal ligation No date: PAST SURGICAL HISTORY OF Comment: right foot bunion surgery PAST MEDICAL HISTORY No date: Hypothyroidism No date: PMH - PAST MEDICAL HISTORY OF Comment: seasonal allergies No date: PMH - PAST MEDICAL HISTORY OF Comment: tension headaches No date: PMH - PAST MEDICAL HISTORY OF Comment: tension in shoulders No date: PMH - PAST MEDICAL HISTORY OF Comment: pancreatitis No date: PMH - PAST MEDICAL HISTORY OF Comment: ibs No date: PMH - PAST MEDICAL HISTORY OF Comment: chronic epigastric pain No date: PMH - PAST MEDICAL HISTORY OF Comment: reset broken nose No date: PMH - PAST MEDICAL HISTORY OF Comment: arthritis No date: PMH - PAST MEDICAL HISTORY OF Comment: depression FAMILY HISTORY Problem Relation Age of Onset Cancer Mother lung related to smoking None Father unknown GI Brother gallbladder removed GI Brother other brother on disability unknown why Cancer Brother Testicular Thyroid Maternal Grandmother Diabetes Maternal Uncle Diabetes Maternal Uncle Social History Tobacco Use Smoking status: Never Passive exposure: Never Smokeless tobacco: Never Vaping Use Vaping Use: Never used Substance Use Topics Alcohol use: Yes Comment: occassionally Drug use: Never ALLERGIES Allergen Reactions Soap Rash With Ann Marie and Tide specifically. Seasonal Allergies Unknown Coughing and congestion Grass Pollen Unknown MEDICATIONS: DULoxetine (CYMBALTA) 60 mg capsule TAKE 1 CAPSULE ONCE DAILY meloxicam (MOBIC) 15 mg tablet Take 15 mg by mouth once daily. busPIRone (BUSPAR) 7.5 mg tablet Take 1 tablet by mouth two times a day. lamoTRIgine (LAMICTAL) 200 mg tablet Take 1 tablet by mouth once daily. (Patient taking differently: Take 100 mg by mouth once daily.) mirtazapine (REMERON) 15 mg tablet Take 1 tablet by mouth daily at bedtime. brexpiprazole (REXULTI) 0.5 mg tablet Take 1 tablet by mouth once daily. CHOLESTYRAMINE, BULK, MISC Take by mouth. levothyroxine (SYNTHROID) 100 mcg tablet Take 1 tablet by mouth once daily. cholestyramine-sucrose (QUESTRAN) 4 gram powder dicyclomine (BENTYL) 10 mg capsule three times a day. asvapc-lezjjjlq-hhsayae (CREON) 36,000-114,000- 180,000 unit delayed release capsule Take by mouth three times daily with meals. hydrOXYchloroQUINE (PLAQUENIL) 200 mg tablet once daily. cholecalciferol (VITAMIN D3) 400 unit tab 1 tab(s) Cyanocobalamin 250 mcg tab 1 tab(s) multivitamin tablet Take 1 tablet by mouth once daily. acetaminophen (TYLENOL) 500 mg tablet Take by mouth every 8 hours as needed. gabapentin (NEURONTIN) 300 mg capsule Take 400 mg by mouth three times daily. Allergies, past surgical history, family history and past medical history were reviewed per this encounter. Medications were reviewed and verified. Objective BP 132/78 (BP Site: Left Arm, BP Position: Sitting, BP Cuff Size: Regular Adult) Pulse 68 Temp 36.4 ?C (97.6 ?F) (Temporal) Resp 18 Ht 160 cm (5' 3) Wt 99.3 kg (219 lb) SpO2 97% BMI 38.79 kg/m? Physical Exam Vitals reviewed. Constitutional: Appearance: Normal appearance. HENT: Head: Normocephalic and atraumatic. Nose: Nose normal. Eyes: Extraocular Movements: Extraocular movements intact. Pupils: Pupils are equal, round, and reactive to light. Cardiovascular: Rate and Rhythm: Normal rate and regular rhythm. Pulmonary: Effort: Pulmonary effort is normal. Breath sounds: Normal breath sounds. Abdominal: General: Bowel sounds are normal. Palpations: Abdomen is soft. Musculoskeletal: General: Normal range of motion. Cervical back: Normal range of motion and neck supple. Skin: General: Skin is warm and dry. Capillary Refill: Capillary refill takes less than 2 seconds. Neurological: General: No focal deficit present (more content not included)...[facility]08-07-2024 History of Present illness Narrative* Melissa Lopes MD - 01/16/2024 8:32 AM EDT Subjective Abel Lyles is a 73 year old female.The patient presents today for follow-up for multiple medical problems. See list. Her chronic medical problems have been stable. Her blood pressure is under good control. She has complaint today of bilateral hand numbness and tingling. Review of Systems Constitutional: Negative. HENT: Negative. Eyes: Negative. Respiratory: Negative. Cardiovascular: Negative. Gastrointestinal: Negative. Endocrine: Negative. Genitourinary: Negative. Musculoskeletal: Negative. Skin: Negative. Allergic/Immunologic: Negative. Neurological: Negative. Hematological: Negative. Psychiatric/Behavioral: Negative. PAST SURGICAL HISTORY No date: ARTHRP KNE CONDYLE&PLATU MEDIAL&LAT COMPARTMENTS Comment: Knee replacement, total, both knee's No date: PAST SURGICAL HISTORY OF Comment: cholecystecomy No date: PAST SURGICAL HISTORY OF Comment: stent in sphincter of ode No date: PAST SURGICAL HISTORY OF Comment: tubal ligation No date: PAST SURGICAL HISTORY OF Comment: right foot bunion surgery PAST MEDICAL HISTORY No date: Hypothyroidism No date: PMH - PAST MEDICAL HISTORY OF Comment: seasonal allergies No date: PMH - PAST MEDICAL HISTORY OF Comment: tension headaches No date: PMH - PAST MEDICAL HISTORY OF Comment: tension in shoulders No date: PMH - PAST MEDICAL HISTORY OF Comment: pancreatitis No date: PMH - PAST MEDICAL HISTORY OF Comment: ibs No date: PMH - PAST MEDICAL HISTORY OF Comment: chronic epigastric pain No date: PMH - PAST MEDICAL HISTORY OF Comment: reset broken nose No date: PMH - PAST MEDICAL HISTORY OF Comment: arthritis No date: PMH - PAST MEDICAL HISTORY OF Comment: depression FAMILY HISTORY Problem Relation Age of Onset Cancer Mother lung related to smoking None Father unknown GI Brother gallbladder removed GI Brother other brother on disability unknown why Cancer Brother Testicular Thyroid Maternal Grandmother Diabetes Maternal Uncle Diabetes Maternal Uncle Social History Tobacco Use Smoking status: Never Passive exposure: Never Smokeless tobacco: Never Vaping Use Vaping Use: Never used Substance Use Topics Alcohol use: Yes Comment: occassionally Drug use: Never ALLERGIES Allergen Reactions Soap Rash With Ann Marie and Tide specifically. Seasonal Allergies Unknown Coughing and congestion Grass Pollen Unknown MEDICATIONS: DULoxetine (CYMBALTA) 60 mg capsule TAKE 1 CAPSULE ONCE DAILY meloxicam (MOBIC) 15 mg tablet Take 15 mg by mouth once daily. busPIRone (BUSPAR) 7.5 mg tablet Take 1 tablet by mouth two times a day. lamoTRIgine (LAMICTAL) 200 mg tablet Take 1 tablet by mouth once daily. (Patient taking differently: Take 100 mg by mouth once daily.) mirtazapine (REMERON) 15 mg tablet Take 1 tablet by mouth daily at bedtime. brexpiprazole (REXULTI) 0.5 mg tablet Take 1 tablet by mouth once daily. CHOLESTYRAMINE, BULK, MISC Take by mouth. levothyroxine (SYNTHROID) 100 mcg tablet Take 1 tablet by mouth once daily. cholestyramine-sucrose (QUESTRAN) 4 gram powder dicyclomine (BENTYL) 10 mg capsule three times a day. hlgkcn-oanecgly-pccrzul (CREON) 36,000-114,000- 180,000 unit delayed release capsule Take by mouth three times daily with meals. hydrOXYchloroQUINE (PLAQUENIL) 200 mg tablet once daily. cholecalciferol (VITAMIN D3) 400 unit tab 1 tab(s) Cyanocobalamin 250 mcg tab 1 tab(s) multivitamin tablet Take 1 tablet by mouth once daily. acetaminophen (TYLENOL) 500 mg tablet Take by mouth every 8 hours as needed. gabapentin (NEURONTIN) 300 mg capsule Take 400 mg by mouth three times daily. Allergies, past surgical history, family history and past medical history were reviewed per this encounter. Medications were reviewed and verified. Objective BP 132/78 (BP Site: Left Arm, BP Position: Sitting, BP Cuff Size: Regular Adult) Pulse 68 Temp 36.4 C (97.6 F) (Temporal) Resp 18 Ht 160 cm (5' 3) Wt 99.3 kg (219 lb) SpO2 97% BMI 38.79 kg/m Physical Exam Vitals reviewed. Constitutional: Appearance: Normal appearance. HENT: Head: Normocephalic and atraumatic. Nose: Nose normal. Eyes: Extraocular Movements: Extraocular movements intact. Pupils: Pupils are equal, round, and reactive to light. Cardiovascular: Rate and Rhythm: Normal rate and regular rhythm. Pulmonary: Effort: Pulmonary effort is normal. Breath sounds: Normal breath sounds. Abdominal: General: Bowel sounds are normal. Palpations: Abdomen is soft. Musculoskeletal: General: Normal range of motion. Cervical back: Normal range of motion and neck supple. Skin: General: Skin is warm and dry. Capillary Refill: Capillary refill takes less than 2 seconds. Neurological: General: No focal deficit present. Mental Status: She is alert and oriented to person, place, and time. Mental status is at baseline. Psychiatric: Mood and Affect: Mood normal. Behavior: Behavior normal. Assessment and Plan Encounter Diagnosis ICD-10-CM 1. Acquired hypothyroidism E03.9 THYROID STIMULATING HORMONE 2. Paresthesia R20.2 EMG(NEURO/NI) 3. Primary osteoarthritis of both hips M16.0 4. Chronic midline low back pain, unspecified whether sciatica present M54.50 G89.29 5. Major depressive disorder, recurrent episode, moderate (HCC) F33.1 6. Undifferentiated connective tissue disease (HCC) M35.9 7. Irritable bowel syndrome, unspecified type K58.9 8. Systolic murmur R01.1 Continue present medications. Obtain nerve conduction study/EMG .. Check labs as above. Monitor blood pressure regularly. Exercise as tolerated. Maintain good diet. Follow-up in 6 months. Melissa Lopes MD * Mario Frye LPN - 01/16/2024 8:12 AM EDT Patient is in office for 6 month exam. Patient has no current complaints or concerns. Mario Frye LPN January 16, 2024 8:21 AM documented in this encounterSelect [facility]24 NoteHNO ID: [id number] Author: MARIO FRYE LPN Service: ? Author Type: LICENSED NURSE Type: Progress Notes Filed: 01/20/2024 19:41 Note Text: Patient is in office for 6 month exam. Patient has no current complaints or concerns. Mario Frye LPN January 16, 2024 8:21 [facility]07-30-2024 [facility] Medical Records Department [address] [place] [id number] History Physical Exam 01/08/24 1135 MR#: [id number] Acct: [id number] Name: ABEL LYLES Rep #: [id number] : 1950 73 From: [facility] Friend DO PCP: Dr. Melissa Lopes MD Status:[facility] Location: [place] [address] History and Physical Date of Admission: 01/08/24 ABEL LYLES, is a 73 F who presents to the office today for follow up. PMH non-healing surgical wound; osteoarthritis; DJD; anxiety/depression. PSH cholecystectomy. *BGI established 2.17.23 with referral from PCP. Alternating constipation with abdominal pain and urgent diarrhea with urgency related incontinence with intermittent episodes of emesis. Stool co nsistency varies by day (coffee noted as loose stool trigger). Symptoms are interfering with daily life.??? Alternating constipation/diarrhea, biochemical workup and stool testing. Biochemical workup ESR, LDH, folate, TSH, Vit d1,25, T4, gastrin, GAME, DARIAN, ANCA, SURI comp, celiac, IBD profile without pertinent abnormality. CRP H6.50, Vit B12 H1307, T3 L2.1 ? Stool lactoferrin, calprotectin, EP, OP, giardia, C.difficile (formed) WNL.? Elastase L184, fecal fats increased. ? Start Creon Contact 08.25.22 to report that she is having frequent stools with smearing and mild incontinence; stools are not hard but of small amounts and frequent. Recommend Amitiza 8mcg QD. OV 11.16.22 she is no longer taking the amitiza. Creon use continues. She has not had any incontinence. However she continues to have constipation with frequent rectal pressure/need for BM. Loose stools have resolved. While taking amitiza she did note softer stools as opposed to harder stool. OV 02.23.23 she has been having loose stools with urgency incontinence and occasional emesis and lower abdominal discomfort occurring intermittently but with increased frequency without preceding f actors; BM the others days vary between mush, hard stool and yellow/orange color. Continues with Creon; no longer taking amitiza. Start dicyclomine and cholestyramine ? GET 02.23.23 23.96 minutes (12-56) OV 3.. Pt reports she has episodes of urgent loose stools that happen a few times a week. Sometimes coffee or salads trigger them. Bowels can also range from small balls to mushy. Continues to take cholestyramine and Creon. Only has abdominal discomfort when having urgency. OV 7 pt reports continued constipation, but is no longer having urgency with stools. Pt reports a bm every 3 days; denies blood in the stool. Pt reports difficulty swallowing dry foods such as bread and then will get hiccups. pt continues with cholestyramine, creon, and metamucil. ROS Const Constitutional: Positive for fatigue and weakness; No fever(s) or weight change ENT ENT: Positive for difficulty swallowing Cardio Cardiology: Positive for leg pain with exertion Gastro GI: Positive for abdominal pain, bloating, constipation, difficulty swallowing and excessive flatus; No belching, change in bowel habits, change in stool character, coffee ground emesis, cramping, diarrhea, heartburn, feeling full early, incontinent of stools, Vomiting blood/hematemesis, Blood in stool, loose stools, Black,tarry stools, nausea/dyspepsia, pain with swallowing, vomiting or other Musc Musculoskeletal: Positive for abnormal gait, joint pain, back pain, joint swelling, muscle cramps, muscle weakness, numbness, stiffness, tingling, Arthritis and leg pain with exertion Skin Skin: Positive for dry skin; No yellowing of the eye or itchy eyes Neuro Neurology: Positive for abnormal gait, weakness, numbness and tingling Psych Psychiatric: Positive for anxiety and Positive for depression Endo Endocrine: Positive for fatigue; No weight change Aller/Imm Allergy/Immunologic: No itchy eyes Vega/Lymp Hematologic/Lymphatic: No easy bleeding or easy bruising Exam Const General: cooperative and comfortable Nutritional Appearance: average body habitus and well nourished [facility] Head: normal to inspection Ears: hearing grossly normal bilaterally Nose: external nose normal Face and sinus: normal facial exam Mouth: oral mucosae normal Throat: posterior oropharynx normal Eyes General: appearance normal, both eyes and all related structures Neck Neck: normal visual inspection Chest Chest palpation inspection: normal inspection of the chest and normal palpation of entire chest wall Resp Effort Inspection: normal respiratory effort Auscultation: Bilateral: Clear to Auscultation Cardio Palpation: normal PMI Rate: regular rate Rhythm: regular rhythm GI Inspection: normal to inspection (more content not included)...[facility]07-29-2024 Telephone encounter Note* Telephone Encounter - Jazlyn Sam - 01/07/2024 4:04 PM EDT Last appt: 10-23-23 Next appt: 01-29-24 [facility]-29-[facility] Miscellaneous Notes* Telephone Encounter - Jazlyn Sam - 01/07/2024 4:04 PM EDT Last appt: 10-23-23 Next appt: 01-29-24 documented in this encounterSelect [facility]06-18-2024 History of Present illness Narrative* Dorys Jade - 11/27/2023 8:25 AM EDT Subjective: Patient presents to clinic c/o painful toenails. They state that the nails are especially painful with shoe gear and pressure. Patient states that nails b/l hallux are painful. Does report fracturing her fifth toe recently. Minimal pain. Contineus with hussein taping. No other pedal complaints at this time. Patient states no change in medications or medical history since last visit. Objective: Patient presents to clinic ambulating in sandals Vasc: DP and PT pulses are palpable bilateral. CFT is less than 5 seconds bilateral. Skin temperature is warm to cool proximal to distal bilateral. There is no edema or varicosities noted. Neuro: Protective sensation is intact to the foot and toes when tested with the 5.07 SWM bilateral.Vibratory sensation is slightly decreased at the hallux IPJ bilateral. The hallux is downgoing bilateral. Derm: Nails 1-5 b/l are painful, discolored-yellow, thick, crumbly, dystrophic and with subungal debris. Skin is of normal turgor, texture and hair growth is present bilateral. Small callus of left hallux. There are no ulcerations, scars, verruca or other lesions noted. Ortho: Muscle strength is 5/5 for all pedal groups tested. Ankle joint DF is decreased with the knee extended with no pain or crepitus noted. 1st MPJ ROM is decreased bilateral. Assessment (B35.1) Onychomycosis (primary encounter diagnosis) (M79.675) Pain in toe of left foot (M79.674) Pain in toe of right foot Plan: Patient was seen and evaluated. Nails 1-5 bilateral were debrided in length and thickness. Small callus to left hallux reduced with dremmel. Continue with firm sole shoe for fracture. Follows with [facility] for fracture Patient is to RTC in 3-4 months. Dorys Jade DPM * Ele Rodríguez LPN - 11/27/2023 8:22 AM EDT AMB ROOMING INTAKE FLOWSHEET DATA Patient presents with: Left Foot - Established Patient, Follow Up, nail care Right Foot - Established Patient, Follow Up, nail care Ele Rodríguez LPN documented in this encounterSelect [facility]05-23-2024 Telephone encounter Note * Telephone Encounter - Ele Rodríguez LPN - 11/01/2023 4:46 PM EDT Patient was informed that at this time we have no availability. Please present to urgent care or PCP office that have xray. Patient verbalized understanding. Ele Rodríguez LPN [facility] Work Phone: [phone]) 192-666105-23-2024 Miscellaneous Notes* Telephone Encounter - Ele Rodríguez LPN - 11/01/2023 4:46 PM EDT Patient was informed that at this time we have no availability. Please present to urgent care or PCP office that have xray. Patient verbalized understanding. Ele Rodríguez LPN * Telephone Encounter - Daisy Alex - 11/01/2023 11:33 AM EDT Unable to find appointment for patient before her schedule nail care on 11/26 as patient [facility] foot 5th toe fracture, they did not have x-ray that day and pcphas not responded to patient message about ordering an x-ray yet. Please advise patient. * Telephone Encounter - Marian Quijano LPN - 11/01/2023 11:28 AM EDT Patient called, verified name and date of , regarding Stubbed toe. Patient stated stubbed right pinky toe 10/13/23, visited urgent care. Patient was treated with antibiotics, no imaging, told to follow up with pcp. Patient has tried reaching out to pcp, to no avail. Patient states right pinky toe is still red, swollen, painful, rates pain 5/10, pain increases withmovement. Patient would like to be seen by Dr. Jade. Transferred patient to scheduling, advised patient if nurse deem necessary that patient needs to be seen sooner they will call. Patient verbalized understanding. Marian Quijano LPN November 01, 2023 11:34 AM documented in this encounterSelect [facility]-23-2024 Telephone encounter Note * Telephone Encounter - Daisy Alex - 11/01/2023 11:33 AM EDT Unable to find appointment for patient before her schedule nail care on 11/26 as patient was seen 10/12 at [facility] for possibly rt foot 5th toe fracture, they did not have x-ray that day and pcphas not responded to patient message about ordering an x-ray yet. Please advise patient. [facility] Telephone encounter Note* Telephone Encounter - Marian Quijano LPN - 11/01/2023 11:28 AM EDT Patient called, verified name and date of , regarding Stubbed toe. Patient stated stubbed right pinky toe 10/13/23, visited urgent care. Patient was treated with antibiotics, no imaging, told to follow up with pcp. Patient has tried reaching out to pcp, to no avail. Patient states right pinky toe is still red, swollen, painful, rates pain 5/10, pain increases withmovement. Patient would like to be seen by Dr. Jade. Transferred patient to scheduling, advised patient if nurse deem necessary that patient needs to be seen sooner they will call. Patient verbalized understanding. Marian Quijano LPN November 01, 2023 11:34 AM [facility] History of Present illness Narrative* Catarina Fitch, LYNDSEY.TWISTHAND - 10/23/2023 2:41 PM EDT Images from the original note were not included. FOLLOW UP - PSYCHIATRIC PROGRESS NOTE PATIENT: Abel Lyles DATE: October 23, 2023 Visit Type:In person All information is from Patient report except when noted. This evaluation is NOT intended for forensic, disability or child custody purposes. Some elements were copied from the previous note which have been updated where appropriate and reflect current decision making from today October 23, 2023. CC: Presenting today for follow up regarding psychiatric medication management. HPI: Treatment Plan from Last Visit on 08/21/2023: 1. Start Rexulti to address depressive symptoms. 2. Continue the rest of the psychiatric medications at the same dose. 3. If patient responds well to the Rexulti, consider decreasing Cymbalta dose at the next appointment. 4. Encouraged patient to still engage in all the activities even if she is not noticing ale just yet. 5. Continue individual psychotherapy with Dr. Becker. Today bAel shares that she was able tolerate the addition of Rexulti. Takes it in the morning. Denies side effects. Shares that she is feeling happier and she is not agitated. It smooths things out. She has days when pain tends to flare up. Pain is not persistent. She is in agreement to decrease Cymbalta due to lack of efficacy in managing her depression at the higher dose. Also concerns about dry mouth and constipation with the Cymbalta. Has been trying to incorporate more protein in her diet. Eats 2 meals and would incorporate a smoothie in the afternoon. She is doing physical therapy. Going to be fitted for a brace to help with her mobility and alignment. Try to figure out if she will be able to take Sheldon, her grandson to [place] with her. Her son is not in the agreement regarding this. Thinks that they might be able to go in December. Has signed up her grandson for a camp at the [employer] this summer. Feels that Sheldon's mother is more accepting of the patient and the value that she is able to add to the family. This has been a new and surprising change. Continues to engage in therapy weekly. Working on sorting through the relationship change with son. Processing grief issues. She has been enjoying working in the garden. Has been able to plant more perineals. Interval Progress: Slightly improved PATIENT DATA: Generalized Anxiety Disorder Scale (WOLFGANG-7) 08/21/2023 09/15/2023 10/17/2023 WOLFGANG - 7 SCORES Score 10 7 7 7 (0-4) minimal anxiety, (5-9) mild anxiety, (10-14) moderate anxiety, (15-21) severe anxiety Patient Health Questionnaire (PHQ-9) 08/21/2023 09/15/2023 10/17/2023 PHQ-9 Score 16 11 11 12 (0-4) minimal depression, (5-9) mild depression, (10-14) moderate depression, (15-19) moderately severe depression, (20-27) severe depression PAST MEDICAL HISTORY Diagnosis Date Hypothyroidism PMH - PAST MEDICAL HISTORY OF seasonal allergies PMH - PAST MEDICAL HISTORY OF tension headaches PMH - PAST MEDICAL HISTORY OF tension in shoulders PMH - PAST MEDICAL HISTORY OF pancreatitis PMH - PAST MEDICAL HISTORY OF ibs PMH - PAST MEDICAL HISTORY OF chronic epigastric pain PMH - PAST MEDICAL HISTORY OF reset broken nose PMH - PAST MEDICAL HISTORY OF arthritis PMH - PAST MEDICAL HISTORY OF depression PAST SURGICAL HISTORY Procedure Laterality Date ARTHRP KNE CONDYLE&PLATU MEDIAL&LAT COMPARTMENTS Knee replacement, total, both knee's PAST SURGICAL HISTORY OF cholecystecomy PAST SURGICAL HISTORY OF stent in sphincter of ode PAST SURGICAL HISTORY OF tubal ligation PAST SURGICAL HISTORY OF right foot bunion surgery ALLERGIES Allergen Reactions Soap Rash With Ann Marie and Tide specifically. Seasonal Allergies Other: See Comments Coughing and congestion Grass Pollen Unknown Current Outpatient Medications on File Prior to Visit Medication Sig meloxicam (MOBIC) 15 mg tablet Take 15 mg by mouth once daily. REXULTI 0.5 mg tablet Take 1 tablet by mouth once daily DULoxetine (CYMBALTA) 60 mg capsule Take 1 capsule by mouth once daily. Take with 30 mg dose. lamoTRIgine (LAMICTAL) 200 mg tablet Take 1 tablet by mouth once daily. busPIRone (BUSPAR) 7.5 mg tablet Take 1 tablet by mouth two times a day. mirtazapine (REMERON) 15 mg tablet Take 1 tablet by mouth daily at bedtime. DULoxetine (CYMBALTA) 30 mg capsule TAKE 1 CAPSULE BY MOUTH ONCE DAILY. TAKE ALONG WITH 60 MG DOSE. calcipotriene (DOVONEX) 0.005 % oint CHOLESTYRAMINE, BULK, MISC Take by mouth. levothyroxine (SYNTHROID) 100 mcg tablet Take 1 tablet by mouth once daily. cholestyramine-sucrose (QUESTRAN) 4 gram powder dicyclomine (BENTYL) 10 mg capsule fdoddh-ebyvhwnx-nsgnvbu (CREON) 36,000-114,000- 180,000 unit delayed release capsule Take by mouth three times daily with meals. hydrOXYchloroQUINE (PLAQUENIL) 200 mg tablet 1 tab(s) cholecalciferol (VITAMIN D3) 400 unit tab 1 tab(s) Cyanocobalamin 250 mcg tab 1 tab(s) multivitamin tablet Take 1 tablet by mouth once daily. acetaminophen (TYLENOL) 500 mg tablet Take by mouth. gabapentin (NEURONTIN) 300 mg capsule Take 400 mg by mouth three times daily. No current facility-administered medications on file prior to visit. ROS: See HPI PFSH: See HPI VITAL SIGNS: 10/23/23 1419 BP: 138/62 Pulse: 70 Weight: 97.1 kg (214 lb) Last 3 Encounter BP Readings: Date: BP: 10/23/2023 138/62 08/21/2023 168/76 07/18/2023 138/72 MENTAL STATUS EXAMINATION: Mental Status Exam General/Sensorium: Alert Orientation: AAOx3 Appearance: Appears well groomed and stated age and casually dressed Eye contact: Appropriate Demeanor: Appropriately interactive Motor activity: Calm Speech: Articulate with appropriate rhythm and volume Mood: Euthymic Affect: Congruent with mood Thought process: Linear, logical, and goal-directed Associations: Normal Thought content: Future goals or plans, discussing stressors and focused on history, symptoms, and management Suicidal ideation: SI: no Plan: no Intent: no Homicidal ideation: HI: no Plan: no Intent: no Abnormal/psychotic thoughts: Absent Perceptions: She does not appear internally stimulated. Intelligence: Above average Attention: Intact Memory: Short-term: Intact Long-term: Intact Language: Intact Fund of knowledge: Appropriate Insight: Good Judgment: Good Gait: Steady Station: Sitting DATA REVIEWED: Psychiatric scales, Electronic medical record, labs, and PDMP report PDMP website checked and validated. All prescriptions have been APPROPRIATELY filled. No suspiciousactivity was identified. 10/23/2023 by Catarina Fitch APRN.CNP DIAGNOSIS: MDD, recurrent, in partial remission Generalized Anxiety Disorder GAF: -80-71 If symptoms are present, they are transient and expectable reactions to psychosocial stressors TREATMENT PLAN: Decrease Cymbalta to just 60 mg due to lack of efficacy in managing depression and contributing to dry mouth and constipation related side effect. Continue Rexulti, Remeron, Buspar, and Lamictal at the same dose. Continue weekly psychotherapy with her current provider. MEDICATION CHANGES: - Reviewed Lamictal titration & risk of severe rash. Instructed to call [facility] if this occurs. - see above Risks and benefits of the medication, including any black box warnings, were discussed with the patient. Patient is aware to reach out with any questions, concerns, or worsening of symptoms prior to the next appointment. Patient educated on risks of substance use in combination with medications and advised that any substance use along with medications may alter their effectiveness. Patient denies any involuntary movement related side effects. Follow Up: 2 to 3 months I spent a total of 36 minutes on the date of the service which included preparing to see the patient, [id number] patient care, completing clinical documentation, and counseling and educating the patient/family/caregiver, ordering medications/labs. ADD ON PSYCHOTHERAPY CODE : No SIGNATURE: Catarina Fitch APRN.CNP PATIENT NAME: Abel Lyles DATE: October 23, 2023 TIME: 2:41 PM documented in this encounterSelect [facility] Telephone encounter Note * Telephone Encounter - Atuumn Dickens - 10/18/2023 3:58 PM EDT Last 08/21/23 Next: 10/23/23 [facility] Miscellaneous Notes* Telephone Encounter - Autumn Dickens - 10/18/2023 3:58 PM EDT Last 08/21/23 Next: 10/23/23 documented in this encounterSelect [facility]03-12-2024 History of Present illness Narrative* Catarina Fitch APRN.[facility] - 08/21/2023 9:12 AM EDT FOLLOW UP - PSYCHIATRIC PROGRESS NOTE Visit Type:In person Reason for Visit: Outpatient follow-up and safety monitoring of previously prescribed psychiatric medication, psychotherapy or other treatment CC: Follow up for psychiatric medication management HPI: Treatment Plan from last visit on 06/26/2023: 1. Continue psychiatric medications at the same dose. 2. Continue to focus on self-care and engagement in activities. Shares the things have not been great the last couple months. She has been doing things that she should be doing. Confused as she is not getting sustained pleasure from them. She has been making plans with friends and taking on projects. She has been struggling to complete tasks. Procrastination has been an ongoing thing when it comes to cleaning out her house. One minute I am motivated, and then the next minute I am not. Finds herself sleeping too much. Discussed how sleeping can be used as a coping skills to not think about her stress. Finds herself getting overwhelmed easily if there are too many choices. Shared an example of difficulty buying furniture. Shared that it would have helped if she only had 2 choices. She is not having trouble falling asleep at night. Struggles getting up in the morning. Yesterday was great day. She was able to get ready and was productive in the morning. But when she got home, she was not motivated to do anything at all. Has tried various ways to motivate herself. Would like to clean house in a way so that she can have friends over. But is not able to complete these tasks. This makes her feel very frustrated. Does not think that inability to complete things at home is related to her pain. She does find herself using it as an excuse. Does have a lot of appointments at [facility] to manage the pain in her foot and tingling. Shares that her gait and balance is off. Is going for a physical therapy evaluation. Continues to work with her psychologist Dr. Becker. He had asked the patient to talk to his provider due to patient's concerns of depressive symptoms. Shares that she has continuous conversations with herself. In these conversations, she tends to put herself down. Risks and benefits of the medication, including any black box warnings, were discussed with the patient. Interval Progress: Slightly worse PATIENT DATA: Generalized Anxiety Disorder Scale (WOLFGANG-7) 05/13/2023 06/23/2023 08/21/2023 WOLFGANG - 7 SCORES Score 9 10 10 (0-4) minimal anxiety, (5-9) mild anxiety, (10-14) moderate anxiety, (15-21) severe anxiety Patient Health Questionnaire (PHQ-9) 08/21/2023 06/23/2023 05/13/2023 PHQ-9 Score 16 11 11 (0-4) minimal depression, (5-9) mild depression, (10-14) moderate depression, (15-19) moderately severe depression, (20-27) severe depression PROMIS Global Health 02/12/2023 05/13/2023 06/23/2023 PROMIS Global Health - (T-Scores - the mean of general population = 50. Five points is a clinicallymeaningful difference.) Physical T-Score 34.9 37.4 34.9 Mental T-Score 41.1 36.3 36.3 PAST MEDICAL HISTORY Diagnosis Date Hypothyroidism PMH - PAST MEDICAL HISTORY OF seasonal allergies PMH - PAST MEDICAL HISTORY OF tension headaches PMH - PAST MEDICAL HISTORY OF tension in shoulders PMH - PAST MEDICAL HISTORY OF pancreatitis PMH - PAST MEDICAL HISTORY OF ibs PMH - PAST MEDICAL HISTORY OF chronic epigastric pain PMH - PAST MEDICAL HISTORY OF reset broken nose PMH - PAST MEDICAL HISTORY OF arthritis PMH - PAST MEDICAL HISTORY OF depression PAST SURGICAL HISTORY Procedure Laterality Date ARTHRP KNE CONDYLE&PLATU MEDIAL&LAT COMPARTMENTS Knee replacement, total, both knee's PAST SURGICAL HISTORY OF cholecystecomy PAST SURGICAL HISTORY OF stent in sphincter of ode PAST SURGICAL HISTORY OF tubal ligation PAST SURGICAL HISTORY OF right foot bunion surgery Current Outpatient Medications Medication Sig Dispense Refill DULoxetine (CYMBALTA) 30 mg capsule TAKE 1 CAPSULE BY MOUTH ONCE DAILY. TAKE ALONG WITH 60 MG DOSE.90 capsule 0 calcipotriene (DOVONEX) 0.005 % oint CHOLESTYRAMINE, BULK, MISC Take by mouth. mirtazapine (REMERON) 15 mg tablet Take 1 tablet by mouth daily at bedtime. levothyroxine (SYNTHROID) 100 mcg tablet Take 1 tablet by mouth once daily. 90 tablet 3 DULoxetine (CYMBALTA) 60 mg capsule Take 1 capsule by mouth once daily. Take with 30 mg dose. 90 capsule 0 lamoTRIgine (LAMICTAL) 200 mg tablet Take 1 tablet by mouth once daily. 90 tablet 0 busPIRone (BUSPAR) 7.5 mg tablet Take 1 tablet by mouth two times a day. 180 tablet 3 cholestyramine-sucrose (QUESTRAN) 4 gram powder dicyclomine (BENTYL) 10 mg capsule lpsztk-pjgefhdr-cwwwplg (CREON) 36,000-114,000- 180,000 unit delayed release capsule Take by mouth three times daily with meals. hydrOXYchloroQUINE (PLAQUENIL) 200 mg tablet 1 tab(s) cholecalciferol (VITAMIN D3) 400 unit tab 1 tab(s) Cyanocobalamin 250 mcg tab 1 tab(s) multivitamin tablet Take 1 tablet by mouth once daily. acetaminophen (TYLENOL) 500 mg tablet Take by mouth. gabapentin (NEURONTIN) 300 mg capsule Take 400 mg by mouth three times daily. No current facility-administered medications for this visit. ROS: See HPI PFSH: See HPI VITAL SIGNS: 08/21/23 0902 BP: 168/76 Pulse: 64 Weight: 94.8 kg (209 lb) MENTAL STATUS EXAM: CONSTITUTIONAL: Well groomed, Appropriately dressed ORIENTATION: Person, Place, Time and Situation MEMORY: Recent intact, Remote intact, Immediate intact CONCENTRATION: Normal MOOD: sad AFFECT: Full and appropriate to topic SPEECH : Clear & distinct LANGUAGE : Normal ASSOCIATIONS: Intact THOUGHT PROCESS : Logical, Coherent, and Rational PROGRESSION : There was no evidence of disturbance in thought perception or progression. FUND OF KNOWLEDGE : Appropriate and Adequate SUICIDE: None HOMICIDE: None DATA REVIEWED: Psychiatric scales and Electronic medical record DIAGNOSIS: PRIMARY: MDD, recurrent, moderate Secondary : Generalized Anxiety Disorder Other : none GAF: -60-51 Moderate symptoms or moderate difficulty in social, occupational or school functioning. TREATMENT PLAN: 1. Start Rexulti to address depressive symptoms. 2. Continue the rest of the psychiatric medications at the same dose. 3. If patient responds well to the Rexulti, consider decreasing Cymbalta dose at the next appointment. 4. Encouraged patient to still engage in all the activities even if she is not noticing ale just yet. 5. Continue individual psychotherapy with Dr. Becker. MEDICATION CHANGES: - Started Rexulti 0.5 mg once every day - Reviewed Lamictal titration & risk of severe rash. Instructed to call [facility] if this occurs. Follow Up: 4 weeks I spent a total of 45 minutes on the date of the service which included preparing to see the patient, gcqv-ur-mlry patient care, completing clinical documentation, obtaining and/or reviewing separately obtained history, performing a medically appropriate examination, counseling and educating the pat ient/family/caregiver, ordering medications, tests, or procedures, independently interpreting results (not separately reported), and communicating results to the patient/family/caregiver. ADD ON PSYCHOTHERAPY CODE : No SIGNATURE: Catarina Fitch APRN.CNP PATIENT NAME: Abel Lyles DATE: August 21, 2023 TIME: 9:13 AM [facility] History of Present illness Narrative* Dorys Jade - 08/20/2023 8:10 AM EDT Subjective: Patient presents to clinic c/o painful toenails. They state that the nails are especially painful with shoe gear and pressure. Patient states that nails b/l hallux are painful. No other pedal complaints at this time. Patient states no change in medications or medical history since last visit. Objective: Patient presents to clinic ambulating in [facility] Vasc: DP and PT pulses are palpable bilateral. CFT is less than 5 seconds bilateral. Skin temperature is warm to cool proximal to distal bilateral. There is no edema or varicosities noted. Neuro: Protective sensation is intact to the foot and toes when tested with the 5.07 SWM bilateral.Vibratory sensation is decreased at the hallux IPJ bilateral. The hallux is downgoing bilateral. Derm: Nails 1-5 b/l are painful, discolored-yellow, thick, crumbly, dystrophic and with subungal debris. Skin is of normal turgor, texture and hair growth is present bilateral. There are no hyperkeratosis, ulcerations, scars, verruca or other lesions noted. Ortho: Muscle strength is 5/5 for all pedal groups tested. Ankle joint DF is decreased with the knee extended with no pain or crepitus noted. 1st MPJ ROM is decreased bilateral. Small bunion is present to b/l feet Assessment: (B35.1) Onychomycosis (primary encounter diagnosis) (M79.675) Pain in toe of left foot (M79.674) Pain in toe of right foot Plan: Patient was seen and evaluated. Nails 1-5 bilateral were debrided in length and thickness. Patient is to RTC in 3-4 months. Dorys Jade DPM * Ele Rodríguez LPN - 08/20/2023 8:05 AM EDT AMB ROOMING INTAKE FLOWSHEET DATA Patient presents with: Left Foot - Established Patient, Follow Up, nail care Right Foot - Established Patient, Follow Up, nail care Ele Rodríguez LPN documented in this encounterSelect [facility] [place] Miscellaneous Notes* Telephone Encounter - Autumn Dickens - 08/10/2023 11:24 AM EST Last: 06/26/23 Next: 08/21/23 documented in this encounterSelect [facility] [place] Miscellaneous Notes* Letter - Coordinator, Mammography - 08/07/2023 7:37 AM EST August 07, 2023 PID: [id number] Abel Lyles [address] [place] [address] Dear Ms. Lyles, We are pleased to inform you that the results of your recent breast imaging exam on 08/06/2023 are normal. Early detection of cancer is very important. We also understand recommendations regarding breast cancer screening are controversial. Please discuss with your primary care provider which strategy is best for you and whether a mammogram is right for you. Your imaging studies and report will be kept on file at [facility] as part of your permanent medical record and are available for your continuing care. Thank you for allowing us to help in meeting your health care needs. Sincerely, Dr. Song Interpreting Radiologist [facility] (Normal over 40) documented in this encounterSelect [facility] [place]-07-2024 Instructions* Patient Instructions* Melissa Lopes MD - 07/18/2023 8:30 AM EST Screening schedule The following prevention plan is recommended: Hepatitis C Screening Never done Bone Density Screening Never done Advance Directive Discussion Never done Mammogram Screening due on 07/26/2023 WHAT YOU CAN DO TO PREVENT FALLS Many falls can be prevented. By making some changes, you can lower your chances of falling. Four things YOU can do to prevent falls for you* and your caregiver 1. Begin a regular exercise program Exercise is one of the most important ways to lower your chances of falling. It makes you stronger and helps you feel better. Exercises that improve balance and coordination (like Jian Chi) are the most helpful. Lack of exercise leads to weakness and increases your chances of falling. Ask your doctor or health care provider about the best type of exercise program for you. 2. Have your health care provider review your medicines Have your doctor or pharmacist review all the medicines you take, even bnmq-tll-ioaozcv medicines. As you get older, the way medicines work in your body can change. Some medicines, or combinations of medicines, can make you sleepy or dizzy andcan cause you to fall. 3. Have your vision checked Have your eyes checked by an eye doctor at least once a year. You may be wearing the wrong glasses or have a condition like glaucoma or cataracts that limits your vision. Poor vision can increase your chances of falling. 4. Make your home safer About half of all falls happen at home. To make your home safer: Remove things you can trip over (like papers, books, clothes, and shoes) from stairs and places where you walk. Remove small throw rugs or use double-sided tape to keep the rugs from slipping. Keep items you use often in cabinets you can reach easily without using a step stool. Have grab bars put in next to your toilet and in the tub or shower. Use non-slip mats in the bathtub and on shower floors. Improve the lighting in your home. As you get older, you need brighter lights to see well. Hang light-weight curtains or shades to reduce glare. Have handrails and lights put in on all staircases. Wear shoes both inside and outside the house. Avoid going barefoot or wearing slippers. For more information, contact: Centers for Disease Control and Prevention www.cdc.gov/injury * This information may not apply if you have certain medical conditions. documented in this encounterSelect [facility] [place] History of Present illness Narrative* Melissa Lopes MD - 07/18/2023 8:29 AM EST Subjective Abel Lyles is a 72 year old female. Abel presents today for her Medicare wellness visit. Review of Systems Constitutional: Negative. HENT: Negative. Eyes: Negative. Respiratory: Negative. Cardiovascular: Negative. Gastrointestinal: Negative. Endocrine: Negative. Genitourinary: Negative. Musculoskeletal: Negative. Skin: Negative. Allergic/Immunologic: Negative. Neurological: Negative. Hematological: Negative. Psychiatric/Behavioral: Negative. PAST SURGICAL HISTORY Procedure Laterality Date ARTHRP KNE CONDYLE&PLATU MEDIAL&LAT COMPARTMENTS Knee replacement, total, both knee's PAST SURGICAL HISTORY OF cholecystecomy PAST SURGICAL HISTORY OF stent in sphincter of ode PAST SURGICAL HISTORY OF tubal ligation PAST SURGICAL HISTORY OF right foot bunion surgery PAST MEDICAL HISTORY Diagnosis Date Hypothyroidism PMH - PAST MEDICAL HISTORY OF seasonal allergies PMH - PAST MEDICAL HISTORY OF tension headaches PMH - PAST MEDICAL HISTORY OF tension in shoulders PMH - PAST MEDICAL HISTORY OF pancreatitis PMH - PAST MEDICAL HISTORY OF ibs PMH - PAST MEDICAL HISTORY OF chronic epigastric pain PMH - PAST MEDICAL HISTORY OF reset broken nose PMH - PAST MEDICAL HISTORY OF arthritis PMH - PAST MEDICAL HISTORY OF depression FAMILY HISTORY Problem Relation Age of Onset Cancer Mother lung related to smoking None Father unknown GI Brother gallbladder removed GI Brother other brother on disability unknown why Cancer Brother Testicular Thyroid Maternal Grandmother Diabetes Maternal Uncle Diabetes Maternal Uncle Social History Tobacco Use Smoking status: Never Passive exposure: Never Smokeless tobacco: Never Vaping Use Vaping Use: Never used Substance Use Topics Alcohol use: Yes Comment: occassionally Drug use: Never ALLERGIES Allergen Reactions Soap Rash With Ann Marie and Tide specifically. Seasonal Allergies Other: See Comments Coughing and congestion Grass Pollen Unknown MEDICATIONS: calcipotriene (DOVONEX) 0.005 % oint CHOLESTYRAMINE, BULK, MISC Take by mouth. mirtazapine (REMERON) 15 mg tablet Take 1 tablet by mouth daily at bedtime. DULoxetine (CYMBALTA) 60 mg capsule Take 1 capsule by mouth once daily. Take with 30 mg dose. lamoTRIgine (LAMICTAL) 200 mg tablet Take 1 tablet by mouth once daily. busPIRone (BUSPAR) 7.5 mg tablet Take 1 tablet by mouth two times a day. DULoxetine (CYMBALTA) 30 mg capsule Take 1 capsule by mouth once daily. Take with 60 mg dose. cholestyramine-sucrose (QUESTRAN) 4 gram powder dicyclomine (BENTYL) 10 mg capsule dbiwne-pbxrrkvd-lytmnqv (CREON) 36,000-114,000- 180,000 unit delayed release capsule Take by mouth three times daily with meals. hydrOXYchloroQUINE (PLAQUENIL) 200 mg tablet 1 tab(s) cholecalciferol (VITAMIN D3) 400 unit tab 1 tab(s) Cyanocobalamin 250 mcg tab 1 tab(s) multivitamin tablet Take 1 tablet by mouth once daily. acetaminophen (TYLENOL) 500 mg tablet Take by mouth. gabapentin (NEURONTIN) 300 mg capsule Take 400 mg by mouth three times daily. levothyroxine (SYNTHROID) 100 mcg tablet Take 1 tablet by mouth once daily. Allergies, past surgical history, family history and past medical history were reviewed per this encounter. Medications were reviewed and verified. Objective BP 138/72 (BP Site: Left Arm, BP Position: Sitting, BP Cuff Size: Large Adult) Pulse (!) 51 Temp 36.7 C (98 F) (Temporal) Resp 17 Ht 160 cm (5' 3) Wt 94.9 kg (209 lb 4 oz) SpO2 98% BMI37.07 kg/m Physical Exam Vitals reviewed. Constitutional: Appearance: Normal appearance. HENT: Head: Normocephalic and atraumatic. Nose: Nose normal. Eyes: Extraocular Movements: Extraocular movements intact. Pupils: Pupils are equal, round, and reactive to light. Cardiovascular: Rate and Rhythm: Normal rate and regular rhythm. Pulmonary: Effort: Pulmonary effort is normal. Breath sounds: Normal breath sounds. Abdominal: General: Bowel sounds are normal. Palpations: Abdomen is soft. Musculoskeletal: General: Normal range of motion. Cervical back: Normal range of motion and neck supple. Skin: General: Skin is warm and dry. Capillary Refill: Capillary refill takes less than 2 seconds. Neurological: General: No focal deficit present. Mental Status: She is alert and oriented to person, place, and time. Mental status is at baseline. Psychiatric: Mood and Affect: Mood normal. Behavior: Behavior normal. Assessment and Plan Encounter Diagnosis ICD-10-CM 1. Wellness examination Z00.00 COMP METABOLIC PANEL 2. Encounter for screening mammogram for breast cancer Z12.31 HEATHER SCREENING 3. Advanced directives, counseling/discussion Z71.89 ADVANCE CARE PLAN DISCUSSION 4. Acquired hypothyroidism E03.9 TSH BLD 5. Screening for deficiency anemia Z13.0 CBC + DIFF 6. Lipid screening Z13.220 LIPID PANEL BASIC 7. Medicare annual wellness visit, subsequent Z00.00 All open preventative health maintenance topics discussed with patient in detail. This includes risks and benefits regarding vaccines, cancer screening, healthy life style, and diet. Medicare Health Risk Assessment General Health Fair Exercise: Minutes/Day 60 min Exercise: Days/Week 2 days Alcohol: Daily Use 2-4 times a month Alcohol: Drinks/Day 1 or 2 Alcohol: 6 or more drinks Never Feel off balance Yes (uses walker for long distances) Concerns: Teeth/Dentures No Concerns: Sexual function No Troubled by feelings None of the above Frequency: Eating healthy diet Nearly every day ADLs requiring help None of the above Safety precautions in home/vehicle Yes Smoke, vape, chews tobacco No Difficulty hearing No Difficulty seeing No Current Providers Specialists: I have reviewed specialist-related care of the patient in the medical record. Medical/Family history review Reviewed and updated problem list, medical/surgical/family/social history, medications, and allergies. Opioid use review Opioid Medications (last 90 days) Some values may be hidden. Unless noted otherwise, only the newest values recorded on each date aredisplayed. Opioid Medications No data to display. Depression screening Depression Screening PHQ-2 Score PHQ-9 Score WOLFGANG-2 Total Score WOLFGANG-7 Total Score 07/18/2023 0 - - - Depression screening tool completed and reviewed. Based on score and interview, patient is not at risk for depression. Screening tool discussed with patient, and I recommended no further interventionat this time. Cognitive screening Cognitive screening reviewed and no further action needed (score 3-5) Functional Observation Was the patient's Timed Up & Go test unsteady or ? 12 seconds? No Advance Care Planning Surrogate decision maker documented and/or advance directives scanned in chart Measurements BP 138/72 Pulse 51 Temp (Src) 98 (Temporal) Resp 17 Ht 5' 3 (1.60m) Wt 209 lb 4 oz (94.9kg) SpO2 98% BMI 37.08 kg/(m^2). Additional screenings: Hearing Screening - Comments:: NA Vision Screening - Comments:: NA Assessment/Plan Medicare annual wellness visit, subsequent (Z00.00) - Counseled on healthy diet and regular exercise - Fall avoidance information provided - Personalized prevention plan provided * Lilliam Love LPN - 07/18/2023 7:53 AM EST Patient in the office today for an annual Medicare Wellness exam. Health Maintenance Due: Hepatitis C Screening Bone Density Screening doing with [facility] Advance Directive Discussion done Mammogram Screening due on 07/26/2023 Lilliam Love LPN July 18, 2023 8:18 AM documented in this encounterSelect [facility] [place] History of Present illness Narrative* Catarina Fitch, [email or web address].TWISTHAND - 05/15/2023 9:13 AM EST FOLLOW UP - PSYCHIATRIC PROGRESS NOTE Visit Type:In person Reason for Visit: Outpatient follow-up and safety monitoring of previously prescribed psychiatric medication, psychotherapy or other treatment CC: Follow up regarding psychiatric medications. HPI: Treatment plan from last appointment on 03/27/2023: Continue psychiatric medications at the same dose. Encouraged to engage in activities that bring her happiness. Follow up in 2 months as holiday time is difficult for her due to the psychosocial stress related to her children. Today Abel shares that, things have not been good for me. She is feeling sad and not getting much done. Reports excessive sleeping. Daughter is here visiting her. Her visits are always a bright spot for me. But she is working every day so we are limited in the time she gets to spend with me. Shares that April is usually tough for her. Geovani was okay but she is not looking forwardto [place]. Does have events at [employer] that she enjoys. Shares that it will be justher and her daughter. Still has not heard from her son and she finds herself thinking about him often. She misses him. Has been able to talk to her daughter about this. Has had more thoughts about what is going to happen when she is gone. These thoughts started occurring 2 weeks ago. Triggered after some men at worship she has known have passed. Looks forward to taking her grandson to a [place] play. Would like to celebrate Angy with her grandson. Discussed that her foot surgery is going to be rescheduled. Her daughter's visit was scheduled so that she could help her. Her foot pain is getting worse and it is limiting her mobility significantly. She has been given an ointment to help with pain but is not experiencing any relief from it. Risks and benefits of the medication, including any black box warnings, were discussed with the patient. Interval Progress: Slightly worse PATIENT DATA: Generalized Anxiety Disorder Scale (WOLFGANG-7) WOLFGANG - 7 SCORES 02/12/2023 03/27/2023 05/13/2023 WOLFGANG-7 Score 9 11 9 (0-4) minimal anxiety, (5-9) mild anxiety, (10-14) moderate anxiety, (15-21) severe anxiety Patient Health Questionnaire (PHQ-9) PHQ-9 10/14/2022 02/12/2023 05/13/2023 Score 10 11 11 (0-4) minimal depression, (5-9) mild depression, (10-14) moderate depression, (15-19) moderately severe depression, (20-27) severe depression PROMIS Global Health PROMIS Global Health - (T-Scores - the mean of general population = 50. Five points is a clinicallymeaningful difference.) 09/14/2022 02/12/2023 05/13/2023 Physical T-Score 42.3 34.9 37.4 Mental T-Score 45.8 41.1 36.3 PAST MEDICAL HISTORY Diagnosis Date Hypothyroidism PMH - PAST MEDICAL HISTORY OF seasonal allergies PMH - PAST MEDICAL HISTORY OF tension headaches PMH - PAST MEDICAL HISTORY OF tension in shoulders PMH - PAST MEDICAL HISTORY OF pancreatitis PMH - PAST MEDICAL HISTORY OF ibs PMH - PAST MEDICAL HISTORY OF chronic epigastric pain PMH - PAST MEDICAL HISTORY OF reset broken nose PMH - PAST MEDICAL HISTORY OF arthritis PMH - PAST MEDICAL HISTORY OF depression PAST SURGICAL HISTORY Procedure Laterality Date ARTHRP KNE CONDYLE&PLATU MEDIAL&LAT COMPARTMENTS Knee replacement, total, both knee's PAST SURGICAL HISTORY OF cholecystecomy PAST SURGICAL HISTORY OF stent in sphincter of ode PAST SURGICAL HISTORY OF tubal ligation PAST SURGICAL HISTORY OF right foot bunion surgery Current Outpatient Medications Medication Sig Dispense Refill DULoxetine (CYMBALTA) 60 mg capsule Take 1 capsule by mouth once daily. Take with 30 mg dose. 90 capsule 0 DULoxetine (CYMBALTA) 30 mg capsule Take 1 capsule by mouth once daily. Take with 60 mg dose. 90 capsule 0 cholestyramine-sucrose (QUESTRAN) 4 gram powder dicyclomine (BENTYL) 10 mg capsule lamoTRIgine (LAMICTAL) 150 mg tablet Take 1 tablet by mouth once daily. 30 tablet 1 Mirtazapine (REMERON) 7.5 mg tablet Take 1 tablet by mouth daily at bedtime. 90 tablet 0 busPIRone (BUSPAR) 7.5 mg tablet Take 1 tablet by mouth two times a day. 180 tablet 3 fhkrrj-zuhdxoqc-uklprmw (CREON) 36,000-114,000- 180,000 unit delayed release capsule Take by mouth three times daily with meals. hydrOXYchloroQUINE (PLAQUENIL) 200 mg tablet 1 tab(s) cholecalciferol (VITAMIN D3) 400 unit tab 1 tab(s) Cyanocobalamin 250 mcg tab 1 tab(s) levothyroxine (SYNTHROID) 100 mcg tablet Take 1 tablet by mouth once daily. 90 tablet 3 multivitamin tablet Take 1 tablet by mouth once daily. acetaminophen (TYLENOL) 500 mg tablet Take by mouth. gabapentin (NEURONTIN) 300 mg capsule Take 400 mg by mouth three times daily. No current facility-administered medications for this visit. ROS: See HPI PFSH: See HPI VITAL SIGNS: 05/15/23 0854 BP: 152/70 Pulse: 60 Weight: 97.8 kg (215 lb 9.6 oz) MENTAL STATUS EXAM: CONSTITUTIONAL: Well groomed, Appropriately dressed ORIENTATION: Person, Place, Time and Situation MEMORY: Recent intact, Remote intact, Immediate intact CONCENTRATION: Normal MOOD: sad AFFECT: Full and appropriate to topic SPEECH : Clear & distinct LANGUAGE : Normal ASSOCIATIONS: Intact THOUGHT PROCESS : Logical, Coherent, and Rational PROGRESSION : There was no evidence of disturbance in thought perception or progression. FUND OF KNOWLEDGE : Appropriate and Adequate SUICIDE: None HOMICIDE: None DATA REVIEWED: Psychiatric scales and Electronic medical record DIAGNOSIS: PRIMARY: MDD, recurrent, moderate Secondary : Generalized Anxiety Disorder Other : None GAF: -60-51 Moderate symptoms or moderate difficulty in social, occupational or school functioning. TREATMENT PLAN: 1. Increase Lamictal to address depressive symptoms. 2. Continue Cymbalta, Remeron and Buspar at the same dose. MEDICATION CHANGES: Lamictal increased to 200 mg. Follow Up: 4 to 6 weeks I spent a total of 36 minutes on the date of the service which included preparing to see the patient, [id number] patient care, completing clinical documentation, obtaining and/or reviewing separately obtained history, performing a medically appropriate examination, counseling and educating the pat ient/family/caregiver, ordering medications, tests, or procedures, independently interpreting results (not separately reported), and communicating results to the patient/family/caregiver. ADD ON PSYCHOTHERAPY CODE : No SIGNATURE: Catarina Fitch APRN.CNP PATIENT NAME: Abel Lyles DATE: May 15, 2023 TIME: 9:13 AM documented in this encounterSelect [facility] History of Present illness Narrative* Catarina Fitch APRN.LINDA - 03/27/2023 4:45 PM EDT Images from the original note were not included. PSYC FOLLOW UP - PSYCHIATRIC PROGRESS NOTE DIAGNOSIS: Generalized Anxiety Disorder MDD, recurrent, in partial remission GAF: -80-71 If symptoms are present, they are transient and expectable reactions to psychosocial stressors TREATMENT PLAN: Continue psychiatric medications at the same dose. Encouraged to engage in activities that bring her happiness. Follow up in 2 months as holiday time is difficult for her due to the psychosocial stress related to her children. The effects and side effects of all the medications were reviewed in detail with the patient. She is aware of the rash side effect associated with the Lamictal. Patient is in agreement with the treatment plan and aware to reach out with any questions, concerns, or worsening of symptoms prior to thenext appointment. CC: Follow up for psychiatric medication management. HPI: Abel Lyles is a 72 year old Female with a history of WOLFGANG and MDD presenting today for follow-up. Date of last visit: 02/13/2023 Plan from last visit: Increase Lamictal to help with her depression symptoms. Reduce Cymbalta dose to help manage the side effects of dry mouth and constipation. Slightly increase hydroxyzine dose as needed to manage anxiety symptoms. Continue Remeron and Buspar at the same dose. Follow up in 4 to 6 weeks. Today Abel shares that she has a combination of good and bad things happening. Able to spend last Sunday with her grandson. She was able to take him to worship after he spent the night. She was very happy that his mother let him spend all the time with her. She has noticed that she has been experiencing more pain in her hands in the last 2 weeks. Her foot surgery has been cancelled. She got assigned a new surgeon and she feels that she is starting all over again. She has been prescribed Questran and Bentyl by her GI provider. This has helped with her constipation along with decrease in Cymbalta. Interval Progress: Improved Risks and benefits of the medication, including any black box warnings, were discussed with the patient. Social History: See HPI PATIENT DATA: Generalized Anxiety Disorder Scale (WOLFGANG-7) WOLFGANG - 7 SCORES 10/14/2022 02/12/2023 03/27/2023 WOLFGANG-7 Score 13 9 11 (0-4) minimal anxiety, (5-9) mild anxiety, (10-14) moderate anxiety, (15-21) severe anxiety Patient Health Questionnaire (PHQ-9) PHQ-9 09/14/2022 10/14/2022 02/12/2023 Score 7 10 11 (0-4) minimal depression, (5-9) mild depression, (10-14) moderate depression, (15-19) moderately severe depression, (20-27) severe depression ROS: See HPI General: Negative for fever, malaise, unintentional weight loss HEENT: Negative for recent changes in vision or hearing, no nasal drainage Respiratory: Negative for cough, wheezing or SOB Cardiovascular: Negative for chest pain GI: Negative for nausea, vomiting, change in bowel habits MUSCULOSKELETAL: Negative for acute back or joint pain SKIN: Negative for rash NEURO: Negative for headaches, seizures, focal neurological deficits All other systems negative. VITAL SIGNS: BP 176/78 (03/27/23 1635) Temp Pulse 70 (03/27/23 1635) Resp SpO2 MENTAL STATUS EXAMINATION: Appearance: Appropriately groomed, appears stated age Behavior: Appropriately engaged Psychomotor: No psychomotor agitation Cognition Level of Consciousness: Awake and alert. No fluctuation in wakefulness. Orientation: Grossly oriented Memory: Intact Attention/Concentration: Good Fund of Knowledge: Able to demonstrate an awareness of current events. Mood: Euthymic Affect: Congruent to mood Speech/Language: Appropriate tone, prosody, carlton, phonetics, and syntax Thought Form: Goal-directed. No loosening of associations. Thought Content: No delusions noted or endorsed. Perceptual Disturbances: Did not appear to respond to auditory stimuli. Safety: Suicidal Ideations: No suicidal ideation, intent or plan. Homicidal Ideations: No homicidal ideation, intent or plan. Insight: Appropriate Judgment: Appropriate I spent a total of 28 minutes on the date of the service which included preparing to see the patient, [id number] patient care, completing clinical documentation, and counseling and educating the patient/family/caregiver, ordering medications/labs. Catarina Fitch APRN.TWISTHAND March 27, 2023 4:45 PM This note was partially generated using P[employer]eline voice recognition system. Note was reviewed for accuracy. There may be minor misspellings or grammar miscues with Priceline voice recognition. documented in this encounterSelect [facility] [place]-01-[facility] History of Present illness Narrative* Dorys Jade - 02/09/2023 3:09 PM EDT Subjective: Patient presents to clinic c/o painful toenails. They state that the nails are especially painful with shoe gear and pressure. Patient states that nails 1-5 b/l are painful. No other pedal complaints at this time. Patient states no change in medications or medical history since last visit. Objective: Patient presents to clinic ambulating in tennis shoes Vasc: DP and PT pulses are palpable bilateral. CFT is less than 5 seconds bilateral. Skin temperature is warm to cool proximal to distal bilateral. There is mild edema or varicosities noted. Neuro: Protective sensation is intact to the foot and toes when tested with the 5.07 SWM bilateral.Vibratory sensation is decreased at the hallux IPJ bilateral. The hallux is downgoing bilateral. Derm: Nails 1-5 b/l are painful, discolored-yellow, thick, crumbly, dystrophic and with subungal debris. Skin is of normal turgor, texture and hair growth is present bilateral. There are no hyperkeratosis, ulcerations, scars, verruca or other lesions noted. Ortho: Muscle strength is 5/5 for all pedal groups tested. Ankle joint DF is full with the knee extended with no pain or crepitus noted. 1st MPJ ROM is full bilateral. Assessment: (B35.1) Onychomycosis (primary encounter diagnosis) (M79.675) Pain in toe of left foot (M79.674) Pain in toe of right foot Plan: Patient was seen and evaluated. Nails 1-5 bilateral were debrided in length and thickness. Patient is to RTC in 3-4 months. Dorys Jade DPM * Ele Rodríguez LPN - 02/09/2023 3:05 PM EDT AMB ROOMING INTAKE FLOWSHEET DATA Pain Pain Level: 6 Pain Location: Foot-Right Description: Numbness, Aching Duration Units: Years Frequency: Intermittent Intervention/Comfort measure: Reposition, Relaxation, Medication Comments: will have surgery in April Patient presents with: Right Foot - Established Patient, Pain, nail care Left Foot - Established Patient, nail care Ele Rodríguez LPN documented in this encounterSelect [facility] [place]08-07-[facility]23 History of Present illness Narrative* Melissa Lopes MD - 01/15/2023 8:57 AM EDT This note was created using Cause[employer]. Subjective Abel Lyles is a 72 year old female. Abel presents today for follow-up for multiple medical problems. See list. Her chronic medical problems have been stable. She has no new complaints today. She does have a spot on her arm however that she would like me to look at. Review of Systems Constitutional: Negative. HENT: Negative. Eyes: Negative. Respiratory: Negative. Cardiovascular: Negative. Gastrointestinal: Negative. Endocrine: Negative. Genitourinary: Negative. Musculoskeletal: Negative. Skin: Negative. Allergic/Immunologic: Negative. Neurological: Negative. Hematological: Negative. Psychiatric/Behavioral: Negative. Objective BP 122/72 (BP Site: Left Arm, BP Position: Sitting, BP Cuff Size: Regular Adult) Pulse 64 Temp 36.2 C (97.2 F) (Temporal) Resp 18 Ht 160 cm (5' 3) Wt 95.4 kg (210 lb 6.4 oz) SpO2 98% BMI 37.27 kg/m Physical Exam Vitals reviewed. Constitutional: Appearance: Normal appearance. HENT: Head: Normocephalic and atraumatic. Nose: Nose normal. Eyes: Extraocular Movements: Extraocular movements intact. Pupils: Pupils are equal, round, and reactive to light. Cardiovascular: Rate and Rhythm: Normal rate and regular rhythm. Pulmonary: Effort: Pulmonary effort is normal. Breath sounds: Normal breath sounds. Abdominal: General: Bowel sounds are normal. Palpations: Abdomen is soft. Musculoskeletal: General: Normal range of motion. Cervical back: Normal range of motion and neck supple. Skin: General: Skin is warm and dry. Capillary Refill: Capillary refill takes less than 2 seconds. Neurological: General: No focal deficit present. Mental Status: She is alert and oriented to person, place, and time. Mental status is at baseline. Psychiatric: Mood and Affect: Mood normal. Behavior: Behavior normal. Assessment and Plan Encounter Diagnosis ICD-10-CM 1. Acquired hypothyroidism E03.9 TSH BLD 2. Undifferentiated connective tissue disease (HCC) M35.9 3. Primary osteoarthritis of both hips M16.0 4. Irritable bowel syndrome, unspecified type K58.9 Continue present medications. Follow-up in 6 months. Labs as above. Melissa Lopes MD * Mario Frye LPN - 01/15/2023 8:10 AM EDT Patient is in office today for 6 month exam. Patient states she has an area on her right arm, that she would like looked at. Patient states that it is an age spot. No other complaints or concerns Mario Frye LPN January 15, 2023 8:18 AM documented in this encounterSelect [facility] [place]06-01-2023 Miscellaneous Notes* Telephone Encounter - Arlene Samayoa LPN - 11/09/2022 2:55 PM EDT Message left for patient date change for Catarina to 02/13/2023 at 9:30 am. Please schedule, referral has . Patient aware of same. documented in this encounterSelect [facility] [place]04-25-2023 History of Present illness Narrative* Dorys Kalie - 10/03/2022 9:21 AM EDT Subjective: Patient presents to clinic c/o painful toenails. They state that the nails are especially painful with shoe gear and pressure. Patient states that nails 1-5b/l are painful. Reports small blister of left 2nd toe caused by wearing sandals. She states it is healing. No other pedal complaints at this time. Patient states no change in medications or medical history since last visit. Objective: Patient presents to clinic ambulating in sandals Vasc: DP and PT pulses are palpable bilateral. CFT is less than 5 seconds bilateral. Skin temperature is warm to cool proximal to distal bilateral. There is no edema or varicosities noted. Neuro: Protective sensation is intact to the foot and toes when tested with the 5.07 SWM bilateral.Vibratory sensation is decreased at the hallux IPJ bilateral. The hallux is downgoing bilateral. Derm: Nails 1-5 b/l are painful, discolored-yellow, thick, crumbly, dystrophic and with subungal debris. Skin is of normal turgor, texture and hair growth is present bilateral. There is dry scab without ifnection to left 2nd toe. No ulcerations, scars, verruca or other lesions noted. Ortho: Muscle strength is 5/5 for all pedal groups tested. Ankle joint DF is decreased with the knee extended with no pain or crepitus noted. 1st MPJ ROM is decreased bilateral. Assessment: (B35.1) Onychomycosis (primary encounter diagnosis) (M79.675) Pain in toe of left foot (M79.674) Pain in toe of right foot Plan: Patient was seen and evaluated. Nails 1-5 bilateral were debrided in length and thickness. Discussed removal of toenails if patientwere interested. She may consider. Small blister of left 2nd toe is present. No signs of infection. Continue to monitor. Call if any issues arise Patient is to RTC in 3-4 months. Dorys Jade DPM * Ele Rodríguez LPN - 10/03/2022 9:05 AM EDT AMB ROOMING INTAKE FLOWSHEET DATA Pain Pain Level: 2 Pain Location: Foot-Right Description: Dull, Numbness, Tingling Duration Units: Minutes Frequency: Intermittent Intervention/Comfort measure: Reposition, Exercise, Massage, Spinal Cord Stimulator Patient presents with: Right Foot - Established Patient, Follow Up, nail care Left Foot - Established Patient, Follow Up, nail care Ele Rodríguez LPN documented in this encounterSelect [facility] [place]04-12-2023 History of Present illness Narrative* Catarina Fitch APRN.TWISTHAND - 09/20/2022 1:46 PM EDT Patient did not come in for her appointment today. documented in this encounterSelect Medical [facility] [place]02-16-2023 Miscellaneous Notes* Telephone Encounter - Mitzi Thomas LPN - 07/27/2022 4:41 PM EST I spoke with patient and advised her of all information and instructions per Dr Lopes's note. Patient did voice understanding and is agreeable. Mitzi Thomas LPN July 27, 2022 4:41 PM * Telephone Encounter - Mitzi Thomas LPN - 07/27/2022 2:38 PM EST Patient returned call and left a message on office voice mail. I attempted to call her again. No answer. I did leave a message asking Abel to return call to the office for her test results. Mitzi Thomas LPN July 27, 2022 2:39 PM * Telephone Encounter - Mario Frye LPN - 07/27/2022 10:28 AM EST Message left for patient to phone office at earliest convenience Mario Frye LPN July 27, 2022 10:28 AM * Telephone Encounter - Mario Frye LPN - 07/27/2022 10:25 AM EST ----- Message from Melissa Lopes MD sent at 07/27/2022 8:44 AM EST ----- Improve low-cholesterol diet. Recheck in 6 months documented in this encounterSelect [facility] [place]01-30-2023 History of Present illness Narrative* Dorys Jade - 07/10/2022 9:45 AM EST Initial Podiatric Office Visit: Chief Complaint: This 71 year old male who presents with chief complaint:numbness of feet HPI Patient presents to clinic for evaluation of b/l feet. Patient states that she has numbness in her feet and has been present for several years. She states that the numnbess first starts when she begins walking. Patient denies any pain with the numbness She also complains of difficulty cutting her toenails. She denies pain. PAIN EVALUATION No data found in the last 1 encounters. No results found for: HBA1C PCP: Melissa Lopes MD PAST MEDICAL HISTORY Diagnosis Date Hypothyroidism PMH - PAST MEDICAL HISTORY OF seasonal allergies PMH - PAST MEDICAL HISTORY OF tension headaches PMH - PAST MEDICAL HISTORY OF tension in shoulders PMH - PAST MEDICAL HISTORY OF pancreatitis PMH - PAST MEDICAL HISTORY OF ibs PMH - PAST MEDICAL HISTORY OF chronic epigastric pain PMH - PAST MEDICAL HISTORY OF reset broken nose PMH - PAST MEDICAL HISTORY OF arthritis PMH - PAST MEDICAL HISTORY OF depression Current Outpatient Medications Medication Sig hydrOXYchloroQUINE (PLAQUENIL) 200 mg tablet 1 tab(s) gabapentin (NEURONTIN) 400 mg capsule busPIRone (BUSPAR) 7.5 mg tablet 1 tab(s) cholecalciferol (VITAMIN D3) 400 unit tab 1 tab(s) clonazePAM (KLONOPIN) 0.5 mg tablet Take by mouth. Cyanocobalamin 250 mcg tab 1 tab(s) levothyroxine (SYNTHROID) 100 mcg tablet Take 1 tablet by mouth once daily. multivitamin tablet Take 1 tablet by mouth once daily. mirtazapine (REMERON) 15 mg tablet Take 0.5 tablets by mouth daily at bedtime. lamoTRIgine (LAMICTAL) 100 mg tablet Take 1 tablet by mouth once daily. DULoxetine (CYMBALTA) 60 mg capsule TAKE 2 CAPSULES ONCE DAILY busPIRone (BUSPAR) 7.5 mg tablet Take 1 tablet by mouth twice daily. acetaminophen (TYLENOL) 500 mg tablet Take by mouth. gabapentin (NEURONTIN) 300 mg capsule Take 400 mg by mouth three times daily. No current facility-administered medications for this visit. ALLERGIES Allergen Reactions Ann Marie Dishwashing Li* Seasonal [Other] Tide Detergent [Oth* PAST SURGICAL HISTORY Procedure Laterality Date ARTHRP KNE CONDYLE&PLATU MEDIAL&LAT COMPARTMENTS Knee replacement, total, both knee's PAST SURGICAL HISTORY OF cholecystecomy PAST SURGICAL HISTORY OF stent in sphincter of ode PAST SURGICAL HISTORY OF tubal ligation PAST SURGICAL HISTORY OF right foot bunion surgery FAMILY HISTORY Problem Relation Age of Onset Cancer Mother lung related to smoking None Father unknown GI Brother gallbladder removed GI Brother other brother on disability unknown why Cancer Brother Testicular Thyroid Maternal Grandmother Diabetes Maternal Uncle Diabetes Maternal Uncle Social History Tobacco Use Smoking status: Never Passive exposure: Never Smokeless tobacco: Never Vaping Use Vaping Use: Never used Substance Use Topics Alcohol use: Yes Comment: occassionally Drug use: Never REVIEW OF SYSTEMS GENERAL: Negative for Malaise, significant weight loss, fever RESPIRATORY: Negative for cough, wheezing and shortness of breath CARDIOVASCULAR: Negative for chest pain, leg swelling and palpitations GI: Negative for abdominal discomfort, blood in stools or black stools and change in bowel habits : Negative for dysuria, frequency and incontinence MUSCULOSKELETAL: Negative for joint pain or swelling, back pain, and muscle pain. SKIN: Negative for lesions, rash, and itching. HEMATOLOGY/LYMPHOLOGY Negative for prolonged bleeding, bruising easily, and swollen nodes. ENDOCRINE: Negative for cold or heat intolerance, polyuria, polydipsia and goiter. NEURO: negative Physical Exam: Constitutional: Pt is a well developed 71 year old female who is alert, oriented and cooperative Eyes: Following during examination. No redness or drainage. Respiratory: RR normal and nonlabored. Even breathing. No evidence of distress or shortness of breath. Psychology: Patient is engaged during conversation. Normal affect and mood. Does not appear depressed or anxious during encounter. Vascular: Dorsalis pedis and posterior tibial pulses palpable as b/l Capillary Fill time < 5 seconds to digits 1-5 b/l Skin temperature warm to warm proximal to distal b/l Hair growth present to digits Neurological: intact light touch/epicritic sensation Vibratory sensation slight decreased b/l decreased protective sensation + significant neurological deficits Dermatological: Nails 1-5 b/l appear thick and slightly discolored. Webspaces clean and dry 1-4 b/l. Skin appears well hydrated and supple. good color, texture, turgor. No open lesions present. No callosities present. Musculoskeletal/Orthopaedic: Patient has no pain to palpation of b/l feet Foot type is prontated structurally AJ ROM is full with knee extended and flexed 1st MPJ is full when loaded and no pain or crepitus are noted with ROM. MTJ, STJ are full and free of pain and crepitus. +5/5 muscle strength dorsiflexion, plantarflexion, inversion, eversion b/l Radiographs: n/a ASSESSMENT: (R20.0) Numbness (primary encounter diagnosis) (B35.1) Onychomycosis PLAN: 1. History and physical examination performed. 2. Discussed numbness in her feet. Suspect could be coming from her back. She does have slightly pronated feet. Would continue with inserts. Offered pain cream but not sure if this would do much for her as she is not really experiencing pain 3. Discussed toenail care. She does not have pain in her toes. Informed her that nail care may not be covered by insurance. I asked if she wanted these cut today and she agreed to having them cut. Nails 1-5 b/l cut without incidence SHASHI Garcia DPM Podiatry [address] [facility] [address] Dept: [phone] Dept * Ele Rodríguez LPN - 07/10/2022 9:32 AM EST Patient presents with: Left Foot - nail care , Numbness, New Right Foot - nail care , Numbness, New Ele Rodríguez LPN documented in this encounterSelect [facility] [place]-23-2023 History of Present illness Narrative* Melissa Lopes MD - 07/03/2022 2:13 PM EST This note was created using [employer] Conversion[employer]. Subjective Abel Lyles is a 71 year old female. Abel presents today for her Medicare wellness exam. Review of Systems Constitutional: Negative. HENT: Negative. Eyes: Negative. Respiratory: Negative. Cardiovascular: Negative. Gastrointestinal: Negative. Endocrine: Negative. Genitourinary: Negative. Musculoskeletal: Negative. Skin: Negative. Allergic/Immunologic: Negative. Neurological: Negative. Hematological: Negative. Psychiatric/Behavioral: Negative. Objective BP 146/70 (BP Site: Left Arm, BP Position: Sitting, BP Cuff Size: Regular Adult) Pulse 63 Temp 36.3 C (97.4 F) (Temporal) Resp 16 Ht 160 cm (5' 3) Wt 99.3 kg (219 lb) SpO2 96% BMI 38.79 kg/m Physical Exam Vitals reviewed. Constitutional: Appearance: Normal appearance. HENT: Head: Normocephalic and atraumatic. Nose: Nose normal. Eyes: Extraocular Movements: Extraocular movements intact. Pupils: Pupils are equal, round, and reactive to light. Cardiovascular: Rate and Rhythm: Normal rate and regular rhythm. Pulmonary: Effort: Pulmonary effort is normal. Breath sounds: Normal breath sounds. Abdominal: General: Bowel sounds are normal. Palpations: Abdomen is soft. Musculoskeletal: General: Normal range of motion. Cervical back: Normal range of motion and neck supple. Skin: General: Skin is warm and dry. Capillary Refill: Capillary refill takes less than 2 seconds. Neurological: General: No focal deficit present. Mental Status: She is alert and oriented to person, place, and time. Mental status is at baseline. Psychiatric: Mood and Affect: Mood normal. Behavior: Behavior normal. Assessment and Plan Abel was seen today for medicare wellness exam. Diagnoses and all orders for this visit: Wellness examination - COMP METABOLIC PANEL; Future Major depressive disorder, recurrent episode, moderate (HCC) Irritable bowel syndrome with both constipation and diarrhea Lipid screening - LIPID PANEL BASIC; Future Screening for deficiency anemia - CBC + DIFF; Future Encounter for screening mammogram for malignant neoplasm of breast - HEATHER SCREENING; Future Other orders - levothyroxine (SYNTHROID) 100 mcg tablet; Take 1 tablet by mouth once daily. * Lilliam Love LPN - 07/03/2022 1:31 PM EST PAST MEDICAL HISTORY Diagnosis Date Hypothyroidism PMH - PAST MEDICAL HISTORY OF seasonal allergies PMH - PAST MEDICAL HISTORY OF tension headaches PMH - PAST MEDICAL HISTORY OF tension in shoulders PMH - PAST MEDICAL HISTORY OF pancreatitis PMH - PAST MEDICAL HISTORY OF ibs PMH - PAST MEDICAL HISTORY OF chronic epigastric pain PMH - PAST MEDICAL HISTORY OF reset broken nose PMH - PAST MEDICAL HISTORY OF arthritis PMH - PAST MEDICAL HISTORY OF depression PAST SURGICAL HISTORY Procedure Laterality Date ARTHRP KNE CONDYLE&PLATU MEDIAL&LAT COMPARTMENTS Knee replacement, total, both knee's PAST SURGICAL HISTORY OF cholecystecomy PAST SURGICAL HISTORY OF stent in sphincter of ode PAST SURGICAL HISTORY OF tubal ligation PAST SURGICAL HISTORY OF right foot bunion surgery ALLERGIES Allergen Reactions Ann Marie Dishwashing Li* Seasonal [Other] Tide Detergent [Oth* Current Outpatient Medications Medication Sig hydrOXYchloroQUINE (PLAQUENIL) 200 mg tablet 1 tab(s) gabapentin (NEURONTIN) 400 mg capsule busPIRone (BUSPAR) 7.5 mg tablet 1 tab(s) cholecalciferol (VITAMIN D3) 400 unit tab 1 tab(s) clonazePAM (KLONOPIN) 0.5 mg tablet Take by mouth. Cyanocobalamin 250 mcg tab 1 tab(s) multivitamin tablet Take 1 tablet by mouth once daily. mirtazapine (REMERON) 15 mg tablet Take 0.5 tablets by mouth daily at bedtime. lamoTRIgine (LAMICTAL) 100 mg tablet Take 1 tablet by mouth once daily. DULoxetine (CYMBALTA) 60 mg capsule TAKE 2 CAPSULES ONCE DAILY busPIRone (BUSPAR) 7.5 mg tablet Take 1 tablet by mouth twice daily. acetaminophen (TYLENOL) 500 mg tablet Take by mouth. gabapentin (NEURONTIN) 300 mg capsule Take 400 mg by mouth three times daily. levothyroxine (SYNTHROID) 100 mcg tablet Take one(1) tablet daily. hydroxychloroquine (PLAQUENIL) 200 mg tablet Take by mouth once daily. (Patient not taking: Reported on 07/03/2022) No current facility-administered medications for this visit. Medications reviewed: Yes FAMILY HISTORY Problem Relation Age of Onset Cancer Mother lung related to smoking None Father unknown GI Brother gallbladder removed GI Brother other brother on disability unknown why Cancer Brother Testicular Thyroid Maternal Grandmother Diabetes Maternal Uncle Diabetes Maternal Uncle Social History Tobacco Use Smoking status: Never Passive exposure: Never Smokeless tobacco: Never Vaping Use Vaping Use: Never used Substance Use Topics Alcohol use: Yes Comment: occassionally Drug use: Never Abel gets minimal exercise. She watches her diet for sodium, low fat and low cholesterol most of the time. End of Live Planning discussed including patients advanced directive wishes: Yes I am willing to follow Abel advanced directives. Depression screen She in the past two weeks denies having felt down, depressed, hopeless, or with little interest or pleasure in doing things. Functional Ability/Safety Screen 1. Was the patient's timed Up and Go test unsteady or longer than 30 seconds? No 2. Does the patient need help with the phone, transportation, shopping,preparing meals, housework, laundry, medications or managing money? No 3. Does your home have rungs in the hallway, lack of grab bars in the bathroom, lack of handrails on the stairs or have poor lighting? No PHYSICAL EXAM BP 146/70 (BP Site: Left Arm, BP Position: Sitting, BP Cuff Size: Regular Adult) Pulse 63 Temp 36.3 C (97.4 F) (Temporal) Resp 16 Ht 160 cm (5' 3) Wt 99.3 kg (219 lb) SpO2 96% BMI 38.79 kg/m Melissa Lopes MD documented in this encounter[facility] Miscellaneous Notes* Telephone Encounter - Mitzi Thomas LPN - 03/16/2022 3:49 PM EDT Patient called about her referral to gastroenterology from her last office visit with Dr Lopes on 02/22/2022. Abel has not gotten a call about this referral yet and it has been 2 weeks. I faxed patient information / referral to [facility] / Dr Gilbert Friend phone number [phone] fax#[phone]. I gave Abel the phone number. Mitzi Thomas LPN March 16, 2022 3:52 PM documented in this encounterSelect [facility]09-15-2022 History of Present illness Narrative* Melissa Lopes MD - 02/23/2022 1:08 PM EDT This note was created using [employer]. Subjective Abel Lyles is a 71 year old female. Abel presents today for follow-up for multiple medical problems. See list. Her chronic medical problems been stable. She has new complaint today of diarrhea.Chronic and frequent. Sometimes associated with vomiting. Previous history of IBS. Review of Systems Constitutional: Negative. HENT: Negative. Eyes: Negative. Respiratory: Negative. Cardiovascular: Negative. Gastrointestinal: Negative. Endocrine: Negative. Genitourinary: Negative. Musculoskeletal: Negative. Skin: Negative. Allergic/Immunologic: Negative. Neurological: Negative. Hematological: Negative. Psychiatric/Behavioral: Negative. Objective BP 148/70 (BP Site: Left Arm, BP Cuff Size: Large Adult) Pulse 66 Temp 36 C (96.8 F) (Temporal) Resp 14 Ht 160 cm (5' 3) Wt 105.3 kg (232 lb 3.2 oz) SpO2 95% BMI 41.13 kg/m Physical Exam Vitals reviewed. Constitutional: Appearance: Normal appearance. HENT: Head: Normocephalic and atraumatic. Nose: Nose normal. Eyes: Extraocular Movements: Extraocular movements intact. Pupils: Pupils are equal, round, and reactive to light. Cardiovascular: Rate and Rhythm: Normal rate and regular rhythm. Pulmonary: Effort: Pulmonary effort is normal. Breath sounds: Normal breath sounds. Abdominal: General: Bowel sounds are normal. Palpations: Abdomen is soft. Musculoskeletal: General: Normal range of motion. Cervical back: Normal range of motion and neck supple. Skin: General: Skin is warm and dry. Capillary Refill: Capillary refill takes less than 2 seconds. Neurological: General: No focal deficit present. Mental Status: She is alert and oriented to person, place, and time. Mental status is at baseline. Psychiatric: Mood and Affect: Mood normal. Behavior: Behavior normal. Assessment and Plan Abel was seen today for follow up. Diagnoses and all orders for this visit: History of IBS - CONSULT TO GASTROENTEROLOGY; Future Screening for colon cancer - CONSULT TO GASTROENTEROLOGY; Future Consult gastroenterology for current symptoms. documented in this encounterSelect [facility]08-24-2022 History of Present illness Narrative* Catarina Fitch, LYNDSEY.TWISTHAND - 02/01/2022 8:02 AM EDT Images from the original note were not included. PSYC FOLLOW UP - PSYCHIATRIC PROGRESS NOTE DIAGNOSIS: MDD, recurrent, in partial remission Generalized Anxiety Disorder GAF: -80-71 If symptoms are present, they are transient and expectable reactions to psychosocial stressors TREATMENT PLAN: Decrease Remeron to 7. 5 mg to see if it still helps with her sleep but reduces the appetite stimulating side effect. Continue Lamictal, Cymbalta, and Buspar at the same dose. Continue to engage in self-care and activities for herself. Follow up in 3 months. The effects and side effects of all the medications were reviewed in detail with the patient. She is aware of the rash side effect associated with the Lamictal. Patient is in agreement with the treatment plan and aware to reach out with any questions, concerns, or worsening of symptoms prior to thenext appointment. CC: Follow up regarding mood and anxiety. HPI: Abel Lyles is a 71 year old Female with a history of WOLFGANG and MDD presenting today for follow-up. Date of last visit: 12/01/2021 Plan from last visit: Continue Lamictal, Cymbalta, Remeron, and BuSpar at the same dose. Patient rarely utilizes Klonopin for increased episodes of anxiety or panic. It was not refilled atthis visit. Different ways of coping with her family situation was discussed and support was provided. Follow-up in 2 months or sooner if needed. Today Abel shares that her pain has improved. Her surgery has healed up and she does not have restrictions any more. She has been engaged in physical therapy. Daughter stayed with her for 5 weeks. She enjoyed spending time with her. Daughter was working from home. She was happy that she took a road trip with her grandson Sheldon. Continues to have a estranged relationship with her son. Communication with her grandson's mother is still sporadic. Has been attending worship on Sunday and feels connected with the Sermons. Has been getting togetherwith a friend. She has reached out to other people to make plans. Helped out a woman from worship who is in her 90s and does not drive. Enjoyed spending the day with her. Interval Progress: Improved Risks and benefits of the medication, including any black box warnings, were discussed with the patient. Social History: See HPI PATIENT DATA: Generalized Anxiety Disorder Scale (WOLFGANG-7) WOLFGANG - 7 SCORES 09/21/2021 11/25/2021 01/29/2022 WOLFGANG-7 Score 5 8 7 (0-4) minimal anxiety, (5-9) mild anxiety, (10-14) moderate anxiety, (15-21) severe anxiety Patient Health Questionnaire (PHQ-9) PHQ-9 09/21/2021 11/25/2021 01/29/2022 Score 3 8 10 (0-4) minimal depression, (5-9) mild depression, (10-14) moderate depression, (15-19) moderately severe depression, (20-27) severe depression ROS: General: Negative for fever, malaise, unintentional weight loss HEENT: Negative for recent changes in vision or hearing, no nasal drainage Respiratory: Negative for cough, wheezing or SOB Cardiovascular: Negative for chest pain GI: Negative for nausea, vomiting, change in bowel habits MUSCULOSKELETAL: Negative for acute back or joint pain SKIN: Negative for rash NEURO: Negative for headaches, seizures, focal neurological deficits All other systems negative. VITAL SIGNS: BP 150/68 (02/01/22 0758) Temp Pulse 64 (02/01/22 0758) Resp SpO2 MENTAL STATUS EXAMINATION: Appearance: Appropriately groomed, appears stated age Behavior: Appropriately engaged Psychomotor: No psychomotor agitation Cognition Level of Consciousness: Awake and alert. No fluctuation in wakefulness. Orientation: Grossly oriented Memory: Intact Attention/Concentration: Good Fund of Knowledge: Able to demonstrate an awareness of current events. Mood: Euthymic Affect: Congruent to mood Speech/Language: Appropriate tone, prosody, carlton, phonetics, and syntax Thought Form: Goal-directed. No loosening of associations. Thought Content: No delusions noted or endorsed. Perceptual Disturbances: Did not appear to respond to auditory stimuli. Safety: Suicidal Ideations: No suicidal ideation, intent or plan. Homicidal Ideations: No homicidal ideation, intent or plan. Insight: Appropriate Judgment: Appropriate I spent a total of 28 minutes on the date of the service which included preparing to see the patient, [id number] patient care, completing clinical documentation, and counseling and educating the patient/family/caregiver, ordering medications/labs. Catarina Fitch APRN.CNP February 01, 2022 8:02 AM This note was partially generated using [employer]eline voice recognition system. Note was reviewed for accuracy. There may be minor misspellings or grammar miscues with P[employer]eline voice recognition. documented in this encounterSelect [facility]06-23-2022 History of Present illness Narrative* Catarina Fitch APRN.CNP - 12/01/2021 8:02 AM EDT Images from the original note were not included. PSYC FOLLOW UP - PSYCHIATRIC PROGRESS NOTE DIAGNOSIS: 1. MDD, recurrent, moderate 2. WOLFGANG GAF: -60-51 Moderate symptoms or moderate difficulty in social, occupational or school functioning. TREATMENT PLAN: 1. Continue Lamictal, Cymbalta, Remeron, and BuSpar at the same dose. 2. Patient rarely utilizes Klonopin for increased episodes of anxiety or panic. It was not refilledat this visit. 3. Different ways of coping with her family situation was discussed and support was provided. 4. Follow-up in 2 months or sooner if needed. The effects and side effects of all the medications were reviewed in detail with the patient. She is aware of the rash side effect associated with Lamictal. PDMP report was reviewed and found to be appropriate without any signs of misuse or diversion. She did not require a refill of her Klonopin atthis time. Patient is in agreement with the treatment plan and aware to reach out with any questions, concerns, or worsening of symptoms. CC: Follow up regarding mood and anxiety. HPI: Abel Lyles is a 71 year old Female with a history of MDD and WOLFGANG presenting today for follow-up. Date of last visit: 09/21/2021 Plan from last visit: 1. Increase Lamictal to help with her anxiety and depressive symptoms. 2. Continue Buspar, Remeron, and Cymbalta at the same dose. 3. Utilize Klonopin only as needed for increased feelings of anxiety. 4. Follow up in 2 months 5. Continue to engage in self-care and use of coping skills. Today Abel shares that she had a spinal simulator inserted last Sunday. Has to wait till next weekto use it for pain control. Her landscaping has been completed. She was able to take Max her grandson to [place]. Sad that son limited only her niece to drive for the trip. Henry worthless as she could take grandson to do some activities. Reports that it was not a good trip. Does not like other people making decisions for her. Her mood was low after the trip. She felt rejuvenated after going to worship after 4 weeks. Her tie inspector gave a good sermon on mental health. It was very helpful for the patient as it was relatable. Her daughter is here taking care of her. She is in a good mood and engaged in doing things with her. Has tolerated the Lamictal increase and denies any side effects currently. Did see her grandson's report card and he was recommend to do summer school for reading. She is unsure if they are going to enroll him. She would like to volunteer to hep Max but unsure how it will received by his parents. Worries about Max's success in school. Interval Progress: Slightly improved Risks and benefits of the medication, including any black box warnings, were discussed with the patient. Social History: See HPI PATIENT DATA: Generalized Anxiety Disorder Scale (WOLFGANG-7) WOLFGANG - 7 SCORES 08/15/2021 09/21/2021 11/25/2021 WOLFGANG-7 Score 4 5 8 (0-4) minimal anxiety, (5-9) mild anxiety, (10-14) moderate anxiety, (15-21) severe anxiety Patient Health Questionnaire (PHQ-9) PHQ-9 08/15/2021 09/21/2021 11/25/2021 Score 8 3 8 (0-4) minimal depression, (5-9) mild depression, (10-14) moderate depression, (15-19) moderately severe depression, (20-27) severe depression ROS: General: Negative for fever, malaise, unintentional weight loss HEENT: Negative for recent changes in vision or hearing, no nasal drainage Respiratory: Negative for cough, wheezing or SOB Cardiovascular: Negative for chest pain GI: Negative for nausea, vomiting, change in bowel habits MUSCULOSKELETAL: Negative for acute back or joint pain SKIN: Negative for rash NEURO: Negative for headaches, seizures, focal neurological deficits All other systems negative. VITAL SIGNS: BP 166/74 (12/01/21 0759) Temp Pulse 80 (12/01/21 0759) Resp SpO2 MENTAL STATUS EXAMINATION: Appearance: Appropriately groomed, appears stated age Behavior: Appropriately engaged Psychomotor: No psychomotor agitation Cognition Level of Consciousness: Awake and alert. No fluctuation in wakefulness. Orientation: Grossly oriented Memory: Intact Attention/Concentration: Good Fund of Knowledge: Able to demonstrate an awareness of current events. Mood: Sad Affect: Congruent to mood Speech/Language: Appropriate tone, prosody, carlton, phonetics, and syntax Thought Form: Goal-directed. No loosening of associations. Thought Content: No delusions noted or endorsed. Perceptual Disturbances: Did not appear to respond to auditory stimuli. Safety: Suicidal Ideations: No suicidal ideation, intent or plan. Homicidal Ideations: No homicidal ideation, intent or plan. Insight: Appropriate Judgment: Appropriate I spent a total of 35 minutes on the date of the service which included preparing to see the patient, [id number] patient care, completing clinical documentation, and counseling and educating the patient/family/caregiver, ordering medications/labs. Catarina Fitch APRN.CNP December 01, 2021 8:02 AM documented in this encounterSelect Medical [facility]04-13-2022 Instructions* Patient Instructions* Catarina Fitch APRN.CNP - 09/21/2021 10:59 AM EDT Pari Astudillo, It was good to talk with you today. Below is a summary of the plan that we discussed during your appointment for reference. Of course, if you have any questions or concerns do not hesitate to reach out to me via a message or call. Best, Catarina Fitch APRN.TWISTHAND PLAN AND FOLLOW UP: YOU SHOULD SEEK IMMEDIATE MEDICAL ATTENTION AT THE NEAREST EMERGENCY DEPARTMENT OR BY CALLING 911, IF ANY OF THE FOLLOWING OCCURS: - New or worsening thoughts of harming yourself (suicidal thoughts) or others (homicidal thoughts) - Not feeling safe at home or worrying about your ability to remain safe at home If you are having thoughts of harming yourself or others, then you can: - Call the National Suicide Hotline at 9-105-NMIJMKN ( ) or 2-441-105-TALK (6900) - Text 4HOPE to 973591 Medication Update: 1. Lamictal 100 mg - take 1 tablet once daily. 2. Continue Buspar, Remeron, and Cymbalta at the same dose. 3. Utilize Klonopin as needed of episodes of increased anxiety. Next appointment: --Schedule in 2 months or sooner if needed -- You may call the department appointment line at [phone] to schedule your appointment. -- Please call my nurse Arlene at [phone] or send me a message in [employer] with any questions or concerns between appointments. documented in this encounterSelect Medical [facility]04-13-2022 History of Present illness Narrative* Catarina Fitch APRN.CNP - 09/21/2021 10:28 AM EDT Images from the original note were not included. PSYC FOLLOW UP - PSYCHIATRIC PROGRESS NOTE DIAGNOSIS: 1. MDD, recurrent, moderate 2. WOLFGANG GAF: -70-61 Some mild symptoms or some difficulty in social, occupational, or school functioning, but generally functioning pretty well. TREATMENT PLAN: 1. Increase Lamictal to help with her anxiety and depressive symptoms. 2. Continue Buspar, Remeron, and Cymbalta at the same dose. 3. Utilize Klonopin only as needed for increased feelings of anxiety. 4. Follow up in 2 months 5. Continue to engage in self-care and use of coping skills. Medication Update: 1. Lamictal 100 mg - take 1 tablet once daily. 2. Continue Buspar, Remeron, and Cymbalta at the same dose. 3. Utilize Klonopin as needed of episodes of increased anxiety. The effects and side effects of all the medications were reviewed in detail with the patient. She is aware of the rash side effect associated with Lamictal. PDMP report was reviewed and found to be appropriate without any signs of misuse or diversion. Patient is in agreement with the treatment planand aware to reach out with any questions, concerns, or worsening of symptoms. CC: Anxiety and Depression HPI: Abel Lyles is a 71 year old Female with a history of WOLFGANG and MDD presenting today for follow-up. Date of last visit: 08/17/2021 Plan from last visit: 1. Discontinue Abilify due to weight gain side effects. 2. Start Lamictal to address patient's depressive symptoms. 3. Continue buspar but change the dose and duration so make it easier for the patient to take consistently. 4. Continue Cymbalta and Remeron at the same dose. 5. Utilize Klonopin only as needed for increased symptoms of anxiety. Today Abel shares that she spent a week in [place] with her daughter taking care of her post gall bladder surgery. This was a last minute trip. Her daughter is doing well now. It was slightly stressful preparing for the trip last minute. She has been able to lose 3 pounds since stopping Abilify. Lamictal has helped with her mood. Feelsthat the change in medication was good for her. She has been working with pain management and thinking about getting a permanent spine simulator for pain. Still waiting on the date for it. Hoping forit to be mid October. Daughter will come to help her. Relationship is still estranged with her son. Sometimes she struggles in communicating with her grandson due to this. She is sad about losing time with grandson as his mother does not want him to continue swimming. This was allowing her to see her grandson 2 days a week. Unsure how much time she will get to spend with her grandson Max once he is out of school. She is focusing on getting landscaping done at her house. Excited to figure out what she is going to plant this year. Also looking forward to her daughter visiting. She has not needed the Klonopin inthe past month. Has been able to cope with anxiety with the use of Buspar. She has been consistent in taking that. Denies any side effects from any of her medications. She has been getting together with friends. Plans on meeting her highschool friends for lunch today. She looks forward to celebrating Easter at [employer] and then lunch with her friends. Interval Progress: Slightly improved Risks and benefits of the medication, including any black box warnings, were discussed with the patient. Social History: See HPI PATIENT DATA: Generalized Anxiety Disorder Scale (WOLFGANG-7) WOLFGANG - 7 SCORES 06/13/2021 08/15/2021 09/21/2021 WOLFGANG-7 Score 6 4 5 (0-4) minimal anxiety, (5-9) mild anxiety, (10-14) moderate anxiety, (15-21) severe anxiety Patient Health Questionnaire (PHQ-9) PHQ-9 06/13/2021 08/15/2021 09/21/2021 Score 11 8 3 (0-4) minimal depression, (5-9) mild depression, (10-14) moderate depression, (15-19) moderately severe depression, (20-27) severe depression ROS: See HPI VITAL SIGNS: BP 176/72 (09/21/21 1024) Temp Pulse 64 (09/21/21 1024) Resp SpO2 MENTAL STATUS EXAMINATION: Appearance: Appropriately groomed, appears stated age Behavior: Appropriately engaged Psychomotor: No psychomotor agitation Cognition Level of Consciousness: Awake and alert. No fluctuation in wakefulness. Orientation: Grossly oriented Memory: Intact Attention/Concentration: Good Fund of Knowledge: Able to demonstrate an awareness of current events. Mood: Sad Affect: Full and appropriate to topic Speech/Language: Appropriate tone, prosody, carlton, phonetics, and syntax Thought Form: Goal-directed. No loosening of associations. Thought Content: No delusions noted or endorsed. Perceptual Disturbances: Did not appear to respond to auditory stimuli. Safety: Suicidal Ideations: No suicidal ideation, intent or plan. Homicidal Ideations: No homicidal ideation, intent or plan. Insight: Appropriate Judgment: Appropriate I spent a total of 28 minutes on the date of the service which included preparing to see the patient, [id number] patient care, completing clinical documentation, and counseling and educating the patient/family/caregiver, ordering medications/labs. Catarina Fitch APRN.[facility] September 21, 2021 10:28 AM documented in this encounterSelect Medical Specialty Hospital - AkronConsult note Author Michael Hu [facility] Note Date/Time September 16, 2024 4:58 pm [facility] Medical Records Department [address] [place] [address] Counseling Note - Pharmacy 09/16/24 1657 MR#: [id number] Acct: [id number] Name: ABEL LYLES Rep #:[id number] : 1950 74 From: Michael Hu PCP: Dr. Melissa Lopes MD Status:ADM DARRYL Y Location: [place] [address] Pharmacy [facility] has performed discharge medication reconciliation and counseling for this patient. The patient's discharge medication list was reviewed for discrepancies and discrepancies were resolved. The patient was counseled on the following discharge medications and changes in medications for homegoing were reviewed. The Reason for Use, instructions for use, and potential side effects were reviewed for all new medications. The patient's questions regarding all of their medications were answered. 1. Apixaban 10 mg PO BID x 7 days, followed by 5 mg PO BID The patient was able to verbally demonstrate an understanding of their dischargemedications. Medications at Discharge Home Medications duloxetine 60 mg capsule,delayed release 60 mg PO QHS depression 07/29/18 hydroxychloroquine 200 mg tablet (Plaquenil) 200 mg PO QHS arthritis 07/29/18 levothyroxine 100 mcg tablet (Synthroid) 100 mcg PO DAILY thyroid 07/29/18 buspirone 7.5 mg tablet 11.25 mg PO BID Depression 11/28/21 dicyclomine 10 mg capsule 10 mg PO TID #90 caps 03/19/24 acetaminophen 500 mg capsule 500 mg PO Q8 PRN fever or pain 05/12/24 cholecalciferol (vitamin D3) 10 mcg (400 unit) capsule 10 mcg PO QDAY vtuzqxeuvy60/02/24 clonazepam 0.5 mg tablet 0.5 mg PO QHS sleep 05/12/24 multivitamin 1 tab PO QDAY supplement 05/12/24 [id number] 36,000-114,000-180,000 unit capsule,delay rel (Creon) See Rx Instructions PO .COMPLEX supplement #320 caps 05/22/24 omeprazole 20 mg capsule,delayed release 20 mg PO DAILY indigestion #30 caps 07/01/24 valsartan 160 mg tablet 160 mg PO BID blood pressure #180 tabs 09/03/24 brexpiprazole 2 mg tablet (Rexulti) 2 mg PO DAILY depression 09/15/24 cephalexin 500 mg capsule 500 mg PO Q6H 09/15/24 gabapentin 300 mg capsule 300 mg PO TID nerve pain 09/15/24 oxycodone 5 mg tablet 5 mg PO Q6H PRN pain 09/15/24 psyllium husk 0.52 gram capsule (Daily Fiber) 0.52 g PO DAILY supplement 09/15/24 apixaban 5 mg (74 tabs) tablets in a dose pack See Rx Instructions PO .COMPLEX #74 tabs 09/16/24 09/16/24 1658 <Electronically signed by Michael oseguera> Date _ Michael Epps Signature (if applicable): Date CC: ~ Signed [facility] Work Phone: Evaluation noteThere may be information available, but it has not been provided by the sender.[facility] Work Phone: Evaluation note* Diagnosis Major depressive disorder, recurrent episode, moderate (HCC)- Primary Major depressive disorder, recurrent episode, moderate WOLFGANG (generalized anxiety disorder) Generalized anxiety disorder documented in this encounter [facility] noteNo assessment information availableWThe [facility] Work Phone: Evaluation note* Diagnosis WOLFGANG (generalized anxiety disorder)- Primary Generalized anxiety disorder Major depressive disorder, recurrent episode, moderate (HCC) Major depressive disorder, recurrent episode, moderate [facility] Diagnosis Recurrent major depressive disorder, in partial remission (HCC)- Primary WOLFGANG (generalized anxiety disorder) Generalized anxiety disorder [facility]* Diagnosis History of IBS- Primary Personal history of other diseases of digestive system Screening for colon cancer Special screening for malignant neoplasms, colon [facility]* Diagnosis Wellness examination- Primary Major depressive disorder, recurrent episode, moderate (HCC) Major depressive disorder, recurrent episode, moderate Irritable bowel syndrome with both constipation and diarrhea Lipid screening Screening for lipoid disorders Screening for deficiency anemia Screening for other and unspecified deficiency anemia Encounter for screening mammogram for malignant neoplasm of breast Other screening mammogram documented [facility] this [facility]* Diagnosis Numbness- Primary Disturbance of skin sensation Onychomycosis Dermatophytosis of nail [facility] Diagnosis Onset Date Resolution Status Alternating constipation and diarrhea [facility] Work Phone: Evaluation note* Diagnosis NO SHOW- Primary documented in this encounter [facility] note* Diagnosis Onychomycosis- Primary Dermatophytosis of nail Pain in toe of left foot Pain in limb Pain in toe of right foot Pain in limb [facility] Diagnosis Acquired hypothyroidism- Primary Unspecified hypothyroidism Undifferentiated connective tissue disease (HCC) Unspecified diffuse connective tissue disease Primary osteoarthritis of both hips Primary localized osteoarthrosis, pelvic region and thigh Irritable bowel syndrome, unspecified type [facility]* Diagnosis Onychomycosis- Primary Dermatophytosis of nail Pain in toe of left foot Pain in limb Pain in toe of right foot Pain in limb documented in this encounter [facility] note* Diagnosis WOLFGANG (generalized anxiety disorder)- Primary Generalized anxiety disorder Recurrent major depressive disorder, in partial remission (HCC) documented [facility]* Diagnosis Encounter for screening mammogram for malignant neoplasm of breast Other screening mammogram documented [facility]* Diagnosis Major depressive disorder, recurrent episode, moderate (HCC)- Primary Major depressive disorder, recurrent episode, moderate WOLFGANG (generalized anxiety disorder) Generalized anxiety disorder [facility]* Diagnosis Wellness examination- Primary Encounter for screening mammogram for breast cancer Advanced directives, counseling/discussion Other specified counseling Acquired hypothyroidism Unspecified hypothyroidism Screening for deficiency anemia Screening for other and unspecified deficiency anemia Lipid screening Screening for lipoid disorders Medicare annual wellness visit, subsequent Routine general medical examination at a health care facility [facility] Diagnosis Onychomycosis- Primary Dermatophytosis of nail Pain in toe of left foot Pain in limb Pain in toe of right foot Pain in limb [facility] Diagnosis Major depressive disorder, recurrent episode, moderate (HCC)- Primary Major depressive disorder, recurrent episode, moderate WOLFGANG (generalized anxiety disorder) Generalized anxiety disorder [facility] Diagnosis Recurrent major depressive disorder, in partial remission (HCC)- Primary WOLFGANG (generalized anxiety disorder) Generalized anxiety disorder [facility]* Diagnosis Onychomycosis- Primary Dermatophytosis of nail Pain in toe of left foot Pain in limb Pain in toe of right foot Pain in limb [facility] Diagnosis Acquired hypothyroidism- Primary Unspecified hypothyroidism Paresthesia Disturbance of skin sensation Primary osteoarthritis of both hips Primary localized osteoarthrosis, pelvic region and thigh Chronic midline low back pain, unspecified whether sciatica present Major depressive disorder, recurrent episode, moderate (HCC) Major depressive disorder, recurrent episode, moderate Undifferentiated connective tissue disease (HCC) Unspecified diffuse connective tissue disease Irritable bowel syndrome, unspecified type Systolic murmur Undiagnosed cardiac murmurs [facility] Diagnosis Bilateral hand numbness- Primary Disturbance of skin sensation [facility]* Diagnosis Major depressive disorder, recurrent episode, moderate (HCC)- Primary Major depressive disorder, recurrent episode, moderate WOLFGANG (generalized anxiety disorder) Generalized anxiety disorder [facility] Diagnosis Onychomycosis- Primary Dermatophytosis of nail Pain in toe of left foot Pain in limb Pain in toe of right foot Pain in limb [facility] Diagnosis Medication side effect, initial encounter- Primary Cognitive change Other signs and symptoms involving cognition Major depressive disorder, recurrent episode, moderate (HCC) Major depressive disorder, recurrent episode, moderate WOLFGANG (generalized anxiety disorder) Generalized anxiety disorder Encounter for long-term (current) use of medications Encounter for long-term (current) use of other medications Fall (on) (from) other stairs and steps, initial encounter Drug-induced tremor Abnormal involuntary movements [facility] Diagnosis Preop examination- Primary Preoperative examination, unspecified Heart murmur Undiagnosed cardiac murmurs [facility]* Diagnosis Major depressive disorder, recurrent episode, moderate (HCC)- Primary Major depressive disorder, recurrent episode, moderate WOLFGANG (generalized anxiety disorder) Generalized anxiety disorder Encounter for long-term (current) use of medications Encounter for long-term (current) use of other medications Psychosocial stressors Other psychological or physical stress, not elsewhere classified Cognitive change Other signs and symptoms involving cognition [facility]* Diagnosis Major depressive disorder, recurrent episode, moderate (HCC)- Primary Major depressive disorder, recurrent episode, moderate WOLFGANG (generalized anxiety disorder) Generalized anxiety disorder Encounter for long-term (current) use of medications Encounter for long-term (current) use of other medications Psychosocial stressors Other psychological or physical stress, not elsewhere classified documented [facility] this [facility]* Diagnosis Wellness examination- Primary Encounter for counseling regarding advance directives Encounter for screening examination for other mental health and behavioral disorders Encounter for screening mammogram for breast cancer Acquired hypothyroidism Unspecified hypothyroidism Screening for deficiency anemia Screening for other and unspecified deficiency anemia Lipid screening Screening for lipoid disorders Hypertension, essential Unspecified essential hypertension Exocrine pancreatic insufficiency Other specified disease of pancreas Medicare annual wellness visit, subsequent Routine general medical examination at a health care facility [facility]* Diagnosis Major depressive disorder, recurrent episode, moderate (HCC)- Primary Major depressive disorder, recurrent episode, moderate WOLFGANG (generalized anxiety disorder) Generalized anxiety disorder Encounter for long-term (current) use of medications Encounter for long-term (current) use of other medications Psychosocial stressors Other psychological or physical stress, not elsewhere classified [facility] Diagnosis Encounter for screening mammogram for breast cancer documented [facility]* Diagnosis Onychomycosis- Primary Dermatophytosis of nail Pain in toe of left foot Pain in limb Pain in toe of right foot Pain in limb [facility]* Diagnosis Acute pulmonary embolism, unspecified pulmonary embolism type, unspecified whether acute cor pulmonale present (HCC)- Primary Family history of DVT Family history of other cardiovascular diseases [facility] this [facility]* Diagnosis Acute pulmonary embolism, unspecified pulmonary embolism type, unspecified whether acute cor pulmonale present (HCC)- Primary Family history of DVT Family history of other cardiovascular diseases Elevated factor VIII level [facility]* Diagnosis Onychomycosis- Primary Dermatophytosis of nail Pain in toe of left foot Pain in limb Pain in toe of right foot Pain in limb documented [facility] this [facility]* Diagnosis Acute pulmonary embolism, unspecified pulmonary embolism type, unspecified whether acute cor pulmonale present (HCC)- Primary Family history of DVT Family history of other cardiovascular diseases Elevated factor VIII level Closed fracture of right ankle, sequela Leg swelling Swelling of limb [facility] Additional Instructions Im[facility] Used[facility] Work Phone: Instructions* Instruction Description Start Date Completed [facility] Work Phone: Progress note Author Lillie Wu [facility] Note Date/Time October 29, 2024 8:17a m 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 Quality Assurance Required: No Accompanied by: Daughter Allergies grass pollen Allergy (Mild, Verified 05/15/24 10:10) Other house dust Allergy (Mild, Verified 05/15/24 10:10) Other oak Allergy (Mild, Verified 05/15/24 10:10) Other Seasonal Allergies: Uncoded Allergy (Mild, Verified 05/15/24 10:10) nasal congestion soap Adverse Reaction (Mild, Verified 05/15/24 10:10) Rash Medications ?Medication ?Instructions ?Recorded ?Confirmed ?Type duloxetine 60 mg capsule,delayed 60 mg PO QHS depressi on 07/29/18 09/16/24 History release hydroxychloroquine 200 mg tablet 200 mg PO QHS arthrit is 07/29/18 09/15/24 History (Plaquenil) levothyroxine 100 mcg tablet 100 mcg PO DAILY thyroid 07/29/18 10/29/24 History (Synthroid) buspirone 7.5 mg tablet 11.25 mg PO BID Depression 0 11/28/21 09/16/24 History dicyclomine 10 mg capsule 10 mg PO TID #90 caps 09/15/24 Rx acetaminophen 500 mg capsule 500 mg PO Q8 PRN fever or pain 05/12/24 09/15/24 History cholecalciferol (vitamin D3) 10 10 mcg PO QDAY supplem ent 05/12/24 09/16/24 History mcg (400 unit) capsule clonazepam 0.5 mg tablet 0.5 mg PO QHS sleep 05/12/24 09/16/24 History multivitamin 1 tab PO QDAY supplement 08/0410/29/24 History milquz-miztvgtc-hokvlif See Rx Instructions PO .COMP ARUNA 05/22/24 10/29/24 Rx 36,000-114,000-180,000 unit supplement #320 caps capsule,delay rel (Creon) omeprazole 20 mg capsule,delayed 20 mg PO DAILY indige stion #30 caps 07/01/24 10/29/24 Rx release valsartan 160 mg tablet 160 mg PO BID blood pressure #180 09/03/24 10/29/24 Rx tabs brexpiprazole 2 mg tablet (Rexulti) 2 mg PO DAILY depr ession 09/15/24 09/16/24 History cephalexin 500 mg capsule 500 mg PO Q6H 09/15/2409/15 History gabapentin 300 mg capsule 300 mg PO TID nerve pain 01/0210/29/24 History psyllium husk 0.52 gram capsule 0.52 g PO DAILY supple ment 09/15/24 10/29/24 History (Daily Fiber) apixaban 5 mg (74 tabs) tablets in See Rx Instructions PO .COMPLEX 09/16/24 Rx a dose pack #74 tabs apixaban 5 mg tablet (Eliquis) 5 mg PO BID 10/29/24 History Patient : No Have you fallen in the past year?: No Nurse's Note: OV 10/29/24 Pt here for f/u and reports diarrhea, abdominal pain, gas and bloating. Pt denies n/v and bloody stools. Pt continues omeprazole, and Creon daily. Continues dicyclomine as needed. PFSH Medical History Irritable bowel syndrome Pancreatitis Tension headache Wears hearing aid Post-menopausal History of steroid therapy Walker as ambulation aid Arthritis Anemia Back pain Difficulty swallowing Diarrhea Wears glasses Depression Anxiety Thyroid disease Unspecified diffuse connective tissue disease Easy bruising History of IBS Non-smoker Shortness of breath on exertion History of echocardiogram Cardiac murmur Hip pain, left Surgical History Hx of surgical procedure History of esophagogastroduodenoscopy (EGD) Hx of colonoscopy Hx of thumb surgery History of carpal tunnel surgery of right wrist History of carpal tunnel surgery of left wrist History of cholecystectomy History of cataract extraction History of bunionectomy History of broken nose History of hip replacement History of laminectomy History of knee replacement Family History (Updated 09/15/24 @ 16:32 by Nicole Hu) Mother Oat cell carcinoma of lung Brother Cancer Grandmother Thyroid disorder Uncle Diabetes Sister Pulmonary embolism Social History household members: none number of children: 2 current occupational status: retired Smoking Status: Never smoker Electronic Cigarette Use: not used alcohol intake: current alcohol intake frequency: other details: occasional use substance use type: does not use HPI HPI Chief Complaint: IBS Details: ABEL LYLES, is a 74 F who presents to the office today for f/u. BGI established in 2022 with constipation alternating with loose stools Biochemical workup ESR, LDH, folate, TSH, Vit d1,25, T4, gastrin, GAME, DARIAN, ANCA, SURI comp, celiac, IBD profile without pertinent abnormality.CRP H6.50, Vit B12 H1307, T3 L2.1 Stool lactoferrin, calprotectin, EP, OP, giardia, C.difficile (formed)WNL. Elastase L184, fecal fats increased. GET 9.15.23 23.96 minutes (12-56) Last OV 2..25 Pt struggling with loose stools and accidents over the past 4 days. Denies any recent medication or lifestyle changes. Endorses up to four loose stools per day typically post prandially. Continue Creon. Decrease dicyclomine. Stool 3..25; lactoferrin, c.dif, O&P, calprotectin all wnl [facility] admission 4.7..25-4.8.25 for pulmonary embolism s/p fusion of right ankle. OV 5..25 Pt continues to have loose stools. She denies every having completelyformed stools. She will go a few days without a bm and then have loose stools. She feels constipated in between. She feels nervous to every leave the house as she doesnt know when she may have a bm. ROS Const Constitutional: No fatigue, fever(s) or weight change ENT ENT: No difficulty swallowing Gastro GI: Positive for abdominal pain, bloating, constipation, diarrhea and excessive flatus; No belching, change in bowel habits, change in stool character, coffee ground emesis, cramping, heartburn, difficulty swallowing, feeling full early, incontinent of stools, Vomiting blood/hematemesis, Blood in stool, loose stools,Black,tarry stools, nausea/dyspepsia, pain with swallowing, vomiting or other Musc Musculoskeletal: Positive for abnormal gait; No joint pain Skin Skin: Positive for dry skin and itchy eyes; No yellowing of the eye Neuro Neurology: Positive for abnormal gait Psych Psychiatric: Positive for anxiety and Positive for depression Endo Endocrine: No fatigue or weight change Aller/Imm Allergy/Immunologic: Positive for itchy eyes Vega/Lymp Hematologic/Lymphatic: No easy bleeding or easy bruising Exam Const General: cooperative and healthy appearing Orientation: alert and awake HENMT Head: normal to inspection Eyes General: appearance normal, both eyes and all related structures Neck Neck: normal visual inspection Chest Chest palpation & inspection: normal inspection of the chest Resp Effort & Inspection: normal respiratory effort Cardio Rate: regular rate Rhythm: regular rhythm GI Inspection: normal to inspection Auscultation: normal bowel sounds Palpation: soft Skin General: no rashes or lesions noted Assessment and Plan Assessment and Plan (1) Constipation: Status: Resolved (2) Loose stools: Status: Acute Plan: This is a 74 yo female pt here today for f/u regarding her ongoing issues with loose stools. Since her last visit she has undergone ankle surgery and was subsequently diagnosed with a PE. Pt has had continued issues with loose stools.She has them on random occasional and cannot identify any triggers. She does nothave any bm in between her loose stools. I will order a KUB to see if she is constipated as she may be having overflow diarrhea. Pending results will consider treatment for constipation. -KUB -continue Creon -Consider treatment for constipation Orders: Orders Abdomen Single View Today K59.00 - Constipation, unspecified Coding Level of Care Code Off vis,est,level 3 Diagnoses Constipation K59.00 Loose stools R19.5 Clinical Quality Measures Falls Risk Screening/Assistive Devices Have you fallen in the past year?: No 10/29/24 0827 <Electronically signed by Lillie SILVA> Date _ Lillie SILVA Cosigner Signature: Date (if applicable) CC: ~ [facility] Work Phone: Reason for referral (narrative)* Diagnostic Procedure Only (Routine) - Authorized Specialty Diagnoses / Procedures Referred By Yolanda t Referred To Contact [facility] Diagnoses Encounter for screening mammogram for malignant neoplasm of breast Procedures HEATHER SCREENING SCREENING MAMMOGRAPHY BI 2-VIEW BREAST INC Melissa Huntley MD [address] [place] [address] [facility] [address] [place] [address] Referral ID Status Reason Start Date Expiration Date Visits Requested Visits Authorized [id number] Authorized Auto-Generat ed Referral 07/03/2022 08/02/2023 1 1 [facility] for referral (narrative)* Diagnostic Procedure Only (Routine) - Closed Specialty Diagnoses / Procedures Referred By Yolanda t Referred To Contact [facility] Diagnoses Encounter for screening mammogram for malignant neoplasm of breast Procedures HEATHER SCREENING SCREENING MAMMOGRAPHY BI 2-VIEW BREAST INC Melissa Huntley MD [address] [place] [address] [facility] [address] [place] [address] Referral ID Status Reason Start Date Expiration Date V isits Requested Visits Authorized [id number] Closed Auto-Generate d Referral 07/03/2022 08/02/2023 1 1 [facility] for referral (narrative)* Diagnostic Procedure Only (Routine) - Pending Review Specialty Diagnoses / Procedures Referred By Yolanda wu Referred To Contact [facility] Diagnoses Encounter for screening mammogram for breast cancer Procedures HEATHER SCREENING SCREENING MAMMOGRAPHY BI 2-VIEW BREAST INC Melissa Huntley MD [address] [place] [address] [facility] [address] [place] [address] Referral ID Status Reason Start Date Expiration Date Visits Requested Visits Authorized [id number] Pending Review Auto-Generat ed Referral 07/18/2023 08/16/2024 1 1 [facility] for referral (narrative)* Outpatient Procedure (Routine) - New Request Specialty Diagnoses / Procedures Referred By Yolanda t Referred To Contact [facility] Diagnoses Paresthesia Procedures EMG(NEURO/NI) NERVE CONDUCTION STUDIES 9-10 STUDIES Melissa Lopes MD [address] [place] [address] [facility] [place] [address] [place] [address] Referral ID Status Reason Start Date Expiration Date Visits Requested Visits Authorized [id number] New Request Auto-Generat ed Referral 01/16/2024 01/15/2025 1 1 [facility] for referral (narrative)No reason for referral information [facility]The [facility] Work Phone: Reason for visit Narrative* Diagnostic Procedure Only (Routine) - Closed Specialty Diagnoses / Procedures Referred By Yolanda t Referred To Contact [facility] Diagnoses Encounter for screening mammogram for malignant neoplasm of breast Procedures HEATHER SCREENING SCREENING MAMMOGRAPHY BI 2-VIEW BREAST INC CAD Melissa Lopes MD [address] [place] [address] [facility] [address] [place] [address] Referral ID Status Reason Start Date Expiration Date V isits Requested Visits Authorized [id number] Closed Auto-Generate d Referral 07/03/2022 08/02/2023 1 1 [facility] for visit Narrative* Diagnostic Procedure Only (Routine) - Closed Specialty Diagnoses / Procedures Referred By Yolanda wu Referred To Contact [facility] Diagnoses Encounter for screening mammogram for breast cancer Procedures HEATHER SCREENING W MILI SCREENING DIGITAL BREAST TOMOSYNTHESIS BI SCREENING MAMMOGRAPHY BI 2-VIEW BREAST INC CAD Melissa Lopes MD [address] [place] [address] Phone: tel: fax: [facility] [address] [place] [address] Referral ID Status Reason Start Date Expiration Date V isits Requested Visits Authorized [id number] Closed Auto-Generate d Referral 07/28/2024 08/27/2025 1 1 [facility] Summary Purpose Family History No Family History Records Found Relationship Condition Age at Onset Recorded Date/T nazanin mother Oat cell carcinoma of lung Unknown Relationship Condition Age at Onset Recorded Date/T nazanin mother Oat cell carcinoma of lung Unknown brother Malignant neoplasm Unknown grandmother Disorder of thyroid Unknown uncle Diabetes mellitus Unknown Relationship Condition Age at Onset Recorded Date/T nazanin mother Oat cell carcinoma of lung Unknown brother Malignant neoplasm Unknown grandmother Disorder of thyroid Unknown uncle Diabetes mellitus Unknown sister Pulmonary embolism Unknown Advance Directives No Advanced Directives Records FoundDocuments on File Type Date Recorded 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 Advance Directive(s) Advance Directive(s) 06/26/2016 2:44 PM Advance Directive Response Recorded Date/ Time Living Will Yes November 21, 2021 3:38pm Power of Pitch Worker Yes November 21 3:38pm Name of Medical Power of Pitch Worker ALKAMarlo vanessa De Jesus November 21, 2021 3:38pm Advance Directive Response Recorded Date/ Time Living Will Yes November 21, 2021 2:38pm Power of Pitch Worker Yes November 21 2:38pm Advance Directive Response Recorded Date/ Time Living Will Yes November 21, 2021 3:38pm Power of Pitch Worker Yes November 21 3:38pm Advance Directive Response Recorded Date/ Time Living Will Yes January 04, 2024 1:33pm Do you have a Healthcare Power of Pitch Worker? Yes January 04, 2024 1:33pm Advance Directive Response Recorded Date/ Time Living Will Yes September 15, 2024 10:50am Do you have a Healthcare Power of Pitch Worker? Yes September 15, 2024 10:50am Name of Medical Power of Pitch Worker ANGELA September 15, 2024 10:50am Advance Directive Response Recorded Date/ Time Living Will Yes September 15, 2024 4:27pm Do you have a Healthcare Power of Pitch Worker? Yes September 15, 2024 4:27pm Name of Medical Power of Pitch Worker ANGELA MODI ED September 15, 2024 4:27pm Advance Directive Response Recorded Date/ Time Living Will Yes January 04, 2024 1:33pm Do you have a Healthcare Power of Pitch Worker? Yes January 04, 2024 1:33pm Living Will Yes September 15, 2024 4:27pm Do you have a Healthcare Power of Pitch Worker? 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 RX HERE Chief Complaint POSTLAMINECTOMY SYND MARY. RX HERE URINE- Proteinuria Chief Complaint POSTLAMINECTOMY SYND MARY. RX HERE URINE- Proteinuria Consult E ORDERS Reason for Visit Alternating constipa tion and diarrhea Chief Complaint Consult E ORDERS PRE PROCEDURAL PREOP Reason for Visit Alternating constipa tion and diarrhea Chief Complaint Consult E ORDERS PRE PROCEDURAL PREOP NASAL CONGESTION, DEVIATED NASAL SEPTUM Reason for Visit Alternating constipa tion and diarrhea Chief Complaint Admit Date 3 M FU May 06, 2024 12:43pm SURGICAL CLEARANCE (MARIANNE) May 15, 2024 10:04am 2 WK BP Check May 30, 2024 8:29am EORDER June 10, 2024 9:13am DYSPNEA; pre op June 13, 2024 6: 37am 3 M FU August 06, 2024 7:54am INT LABSPEC August 22, 2024 8:5 0am Reason for Visit Admit Date Irritable bowel syndrome with diarrhea N ovember 2023 12:43pm Constipation May 06, 2024 12:43pm Connective tissue disease May 15, 2024 10:04am Dyslipidemia May 15, 2024 1 0:04am Dyspnea on exertion May 15, 2024 1 0:04am Hypertension May 15, 2024 1 0:04am Obesity May 15, 2024 1 0:04am Preoperative cardiovascular examination May 15, 2024 10:04am Irritable bowel syndrome with diarrhea [facility] 2024 7:54am Chief Complaint Admit Date 2 WK BP Check May 30, 2024 8:29am EORDER June 10, 2024 9:13am DYSPNEA; pre op June 13, 2024 6: 37am 3 M FU August 06, 2024 7:54am INT LABSPEC August 22, 2024 8:5 0am PE September 15, 2024 2:48 pm Reason for Visit Admit Date Irritable bowel syndrome with diarrhea [facility] 2024 7:54am Pulmonary embolism September 15, 2024 2:48 pm Chief Complaint Admit Date 2 WK BP Check May 30, 2024 8:29am EORDER June 10, 2024 9:13am DYSPNEA; pre op June 13, 2024 6: 37am 3 M FU August 06, 2024 7:54am INT LABSPEC August 22, 2024 8:5 0am PE September 15, 2024 2:48 pm PE September 15, 2024 2:55 pm PE September 16, 2024 9:01 am Chief Complaint Admit Date 3 M FU August 06, 2024 7:54am INT LABSPEC August 22, 2024 8:5 0am PE September 15, 2024 2:48 pm PE September 15, 2024 2:55 pm PE September 16, 2024 9:01 am Chief Complaint Admit Date 3 M FU August 06, 2024 7:54am INT LABSPEC August 22, 2024 8:5 0am PE September 15, 2024 2:48 pm PE September 15, 2024 2:55 pm PE September 16, 2024 9:01 am 3 M FU October 29, 2024 7:44a m EORDERS October 29, 2024 8:21a m Reason for Visit Admit Date Irritable bowel syndrome with diarrhea [facility] 2024 7:54am Pulmonary embolism September 15, 2024 2:48 pm Loose stools October 29, 2024 7:44a m Constipation October 29, 2024 7:44a m Chief Complaint Admit Date 3 M FU August 06, 2024 7:54am INT LABSPEC August 22, 2024 8:5 0am PE September 15, 2024 2:48 pm PE September 15, 2024 2:55 pm PE September 16, 2024 9:01 am 3 M FU October 29, 2024 7:44a m EORDERS October 29, 2024 8:21a m Consult November 24, 2024 8:53 am Reason for Visit Admit Date Irritable bowel syndrome with diarrhea [facility] 2024 7:54am Pulmonary embolism September 15, 2024 2:48 pm Loose stools October 29, 2024 7:44a m Constipation October 29, 2024 7:44a m Cervical radiculopathy November 24, 2024 8 :53am Neck pain November 24, 2024 8:53 am Neuropathy November 24, 2024 8:53 am Reason for Visit Admit Date Irritable bowel syndrome with diarrhea [facility] 2024 7:54am Pulmonary embolism September 15, 2024 2:48 pm Loose stools October 29, 2024 7:44a m Constipation October 29, 2024 7:44a m Bilateral carpal tunnel syndrome November 242024 8:53am Cervical radiculopathy November 24, 2024 8 :53am Mixed connective tissue disease November 8:53am Neck pain November 24, 2024 8:53 am Neuropathy November 24, 2024 8:53 am Osteoarthritis November 24, 2024 8:53 am Tremor November 24, 2024 8:53 am Reason for Referral Specialty Diagnoses / Procedures Referred By Contac t Referred To Contact Gastroenterology Diagnoses History of IBS Screening for colon cancer Procedures CONSULT TO GASTROENTEROLOGY Melissa Lopes MD [address] [place] [address] [address] Referral ID Status Reason Start Date Expiration Date Visits Requested Visits Authorized [id number] Ref Not Required PCP Requested Referral 02/22/2022 02/22/2023 1 1 Specialty Diagnoses / Procedures Referred By Contac t Referred To Contact Neurology Diagnoses Bilateral hand numbness Procedures CONSULT TO NEUROLOGY OFFICE/OUTPATIENT [facility] 60 MINUTES Melissa Lopes MD [address] [place] [address] Referral ID Status Reason Start Date Expiration Date Visits Requested Visits Authorized [id number] Authorized PCP Requested Referral 01/24/2024 01/23/2025 1 1 Specialty Diagnoses / Procedures Referred By Contac t Referred To Contact Cardiology Diagnoses Heart murmur Procedures CONSULT TO CARDIOLOGY OFFICE/OUTPATIENT [facility] 60 MINUTES Melissa Lopes MD [address] [place] [address] Referral ID Status Reason Start Date Expiration Date Visits Requested Visits Authorized [id number] Authorized PCP Requested Referral 04/16/2024 04/16/2025 1 1 Additional Source Comments INFORMATION SOURCE (unrecogn ized section and content) DATE CREATED AUTHOR 01/08/2021 [facility] DATE CREATED AUTHOR AUTHOR'S ORGANIZ ATION 10/27/2021 [facility] [place] DATE CREATED AUTHOR AUTHOR'S ORGANIZ ATION 11/15/2024 [facility] DATE CREATED AUTHOR AUTHOR'S ORGANIZ ATION 12/04/2024 [facility] [place] DATE CREATED AUTHOR AUTHOR'S ORGANIZ ATION 12/06/2024 [facility] Reason for Visit (unrecogniz ed section and content) Reason Comments Follow Up Depression/Anxiety Specialty Diagnoses / Procedures Referred By Contac t Referred To Contact Psychiatry / ADULT PSYCHIATRY Diagnoses follow up Procedures [facility] Catarina Fitch, POWDER ROOM ATTENDANT.TWISTHAND [address] [place] [address] Catarina Fitch, POWDER ROOM ATTENDANT.TWISTHAND [address] [place] [address] Referral ID Status Reason Start Date Expiration Date V isits Requested Visits Authorized [id number] New Request 03/25/2024 06/23/2024 1 1 Reason For Visit Description Start Date Follow-up by complaint Preliminary reason f or visit data, not yet signed by the author as of bilateral shoulder pain Reason Comments Follow Up Referral ID Status Reason Start Date Expiration Date Visits Re quested Visits Authorized [id number] Closed 06/15/2021 09/13/2021 1 1 Referral ID Status Reason Start Date Expiration Date V isits Requested Visits Authorized [id number] Pending Review 12/01/2021 03/01/2022 1 1 Reason Comments Follow Up Diarrhea off and on that has been increasing in episodes that are painful at times and emesis sometimes Reason Comments Referral Information GI referral Reason Comments Medicare Wellness Exam Reason Comments nail care Numbness New Reason Comments Refill Request Reason Comments Results Reason Comments No Show Specialty Diagnoses / Procedures Referred By Contac t Referred To Contact ADULT PSYCHIATRY Diagnoses f/u Procedures est pt Melissa Lopes MD [address] [place] [address] [facility] [address] [place] [address] Referral ID Status Reason Start Date Expiration Date Visits Re quested Visits Authorized [id number] Closed 02/01/2022 11/09/2022 1 1 Reason Comments Established Patient Follow Up nail care Reason Comments Appointment Reason Comments Established Patient Pain nail care nail care Specialty Diagnoses / Procedures Referred By Yolanda t Referred To Contact Psychiatry / ADULT PSYCHIATRY Diagnoses Follow up per phone encounter -time/date/pt aware given Procedures [facility] Catarina Fitch, POWDER ROOM ATTENDANT.TWISTHAND [address] [place] [address] Catarina Fitch, POWDER ROOM ATTENDANT.TWISTHAND [address] [place] [address] Referral ID Status Reason Start Date Expiration Date V isits Requested Visits Authorized [id number] Pending Review 02/13/2023 05/14/2023 1 1 Reason Comments Appointment Recent urgent care v isit follow up Patient Update Reason Comments Appointment Left message to [facility] [employer] for 2024 Reason Comments 6 Month Exam Reason Comments Appointment Missed patients call , called back left a message to try me again Reason Comments Appointment Patient returned my call to schedule wellness, has a 6 mo f/u the week before but she did not remember getting that or writing it down, wanted that date for wellness Reason Comments Referral Request Reason Comments Neurology Referral problem Reason Comments Follow Up Depression/anxiety Reason Comments Orders EMG Reason Comments Orders EMG Clarification Reason Comments Established Patient Follow Up nail care Reason Comments pre surgical clearance Reason Comments Referral Information Reason Comments Orders Reason Comments Patient Update Reason Comments Follow Up Depression/medicatio n check Specialty Diagnoses / Procedures Referred By Yolanda wu Referred To Contact Psychiatry / ADULT PSYCHIATRY Diagnoses follow up Procedures [facility] Catarina Fitch, POWDER ROOM ATTENDANT.TWISTHAND [address] [place] [address] Catarina Fitch, POWDER ROOM ATTENDANT.TWISTHAND [address] [place] [address] Referral ID Status Reason Start Date Expiration Date V isits Requested Visits Authorized [id number] New Request 04/29/2024 07/28/2024 1 1 Reason Comments Follow Up Depression Specialty Diagnoses / Procedures Referred By Contac t Referred To Contact Psychiatry / ADULT PSYCHIATRY Diagnoses 2 month follow up Procedures VIDEO PSYC/PSYL EST Catarina Fitch, POWDER ROOM ATTENDANT.TWISTHAND [address] [place] [address] Catarina Fitch, POWDER ROOM ATTENDANT.TWISTHAND [address] [place] [address] Referral ID Status Reason Start Date Expiration Date V isits Requested Visits Authorized [id number] New Request 07/01/2024 09/29/2024 1 1 Reason Comments Follow Up depression Specialty Diagnoses / Procedures Referred By Contac t Referred To Contact Psychiatry / ADULT PSYCHIATRY Diagnoses 4-6 week follow up Procedures [facility] Catarina Fitch, POWDER ROOM ATTENDANT.TWISTHAND [address] [place] [address] Phone: tel: fax: Catarina Fitch, POWDER ROOM ATTENDANT.TWISTHAND [address] [place] [address] Phone: tel: fax: Referral ID Status Reason Start Date Expiration Date V isits Requested Visits Authorized [id number] New Request 08/05/2024 11/03/2024 1 1 Reason Onset Date Comments Refill Request 09/29/2024 Reason Comments Hospital Discharge Reason Comments New Patient Specialty Diagnoses / Procedures Referred By Contac t Referred To Contact Hematology Diagnoses Acute pulmonary embolism, unspecified pulmonary embolism type, unspecified whether acute cor pulmonale present (HCC) Family history of DVT Elevated factor VIII level Procedures CONSULT TO HEMATOLOGY OFFICE/OUTPATIENT NEW HIGH MDM 60 MINUTES Melissa Lopes MD [address] [place] [address] Phone: tel: fax: Referral ID Status Reason Start Date Expiration Date V isits Requested Visits Authorized [id number] Closed PCP Requested Referral 11/10/2024 11/10/2025 1 1 Source Comments (unrecognize d section and content) In the event this informatio n is protected by the Federal Confidentiality of Alcohol and Drug Abuse Patient Records regulations: The Federal rules restrict any use of the information to criminally investigate or prosecute any alcohol or drug abuse patient.[facility] the event this information is protected by the Federal Confidentiality of Alcohol and Drug Abuse Patient Records regulations: The Federal rules restrict any use of the information to criminally investigate or prosecute any alcohol or drug abuse patient.[facility] the event this information is protected by the Federal Confidentiality of Alcohol and Drug Abuse Patient Records regulations: The Federal rules restrict any use of the information to criminally investigate or prosecute any alcohol or drug abuse patient.[facility] the event this information is protected by the Federal Confidentiality of Alcohol and Drug Abuse Patient Records regulations: The Federal rules restrict any use of the information to criminally investigate or prosecute any alcohol or drug abuse patient.[facility] the event this information is protected by the Federal Confidentiality of Alcohol and Drug Abuse Patient Records regulations: The Federal rules restrict any use of the information to criminally investigate or prosecute any alcohol or drug abuse patient.[facility] the event this information is protected by the Federal Confidentiality of Alcohol and Drug Abuse Patient Records regulations: The Federal rules restrict any use of the information to criminally investigate or prosecute any alcohol or drug abuse patient.[facility] the event this information is protected by the Federal Confidentiality of Alcohol and Drug Abuse Patient Records regulations: The Federal rules restrict any use of the information to criminally investigate or prosecute any alcohol or drug abuse patient.[facility] the event this information is protected by the Federal Confidentiality of Alcohol and Drug Abuse Patient Records regulations: The Federal rules restrict any use of the information to criminally investigate or prosecute any alcohol or drug abuse patient.[facility] the event this information is protected by the Federal Confidentiality of Alcohol and Drug Abuse Patient Records regulations: The Federal rules restrict any use of the information to criminally investigate or prosecute any alcohol or drug abuse patient.[facility] the event this information is protected by the Federal Confidentiality of Alcohol and Drug Abuse Patient Records regulations: The Federal rules restrict any use of the information to criminally investigate or prosecute any alcohol or drug abuse patient.[facility] the event this information is protected by the Federal Confidentiality of Alcohol and Drug Abuse Patient Records regulations: The Federal rules restrict any use of the information to criminally investigate or prosecute any alcohol or drug abuse patient.[facility] the event this information is protected by the Federal Confidentiality of Alcohol and Drug Abuse Patient Records regulations: The Federal rules restrict any use of the information to criminally investigate or prosecute any alcohol or drug abuse patient.[facility] the event this information is protected by the Federal Confidentiality of Alcohol and Drug Abuse Patient Records regulations: The Federal rules restrict any use of the information to criminally investigate or prosecute any alcohol or drug abuse patient.[facility] the event this information is protected by the Federal Confidentiality of Alcohol and Drug Abuse Patient Records regulations: The Federal rules restrict any use of the information to criminally investigate or prosecute any alcohol or drug abuse patient.[facility] the event this information is protected by the Federal Confidentiality of Alcohol and Drug Abuse Patient Records regulations: The Federal rules restrict any use of the information to criminally investigate or prosecute any alcohol or drug abuse patient.[facility] the event this information is protected by the Federal Confidentiality of Alcohol and Drug Abuse Patient Records regulations: The Federal rules restrict any use of the information to criminally investigate or prosecute any alcohol or drug abuse patient.[facility] the event this information is protected by the Federal Confidentiality of Alcohol and Drug Abuse Patient Records regulations: The Federal rules restrict any use of the information to criminally investigate or prosecute any alcohol or drug abuse patient.[facility] the event this information is protected by the Federal Confidentiality of Alcohol and Drug Abuse Patient Records regulations: The Federal rules restrict any use of the information to criminally investigate or prosecute any alcohol or drug abuse patient.[facility] the event this information is protected by the Federal Confidentiality of Alcohol and Drug Abuse Patient Records regulations: The Federal rules restrict any use of the information to criminally investigate or prosecute any alcohol or drug abuse patient.[facility] the event this information is protected by the Federal Confidentiality of Alcohol and Drug Abuse Patient Records regulations: The Federal rules restrict any use of the information to criminally investigate or prosecute any alcohol or drug abuse patient.[facility] the event this information is protected by the Federal Confidentiality of Alcohol and Drug Abuse Patient Records regulations: The Federal rules restrict any use of the information to criminally investigate or prosecute any alcohol or drug abuse patient.[facility] the event this information is protected by the Federal Confidentiality of Alcohol and Drug Abuse Patient Records regulations: The Federal rules restrict any use of the information to criminally investigate or prosecute any alcohol or drug abuse patient.[facility] the event this information is protected by the Federal Confidentiality of Alcohol and Drug Abuse Patient Records regulations: The Federal rules restrict any use of the information to criminally investigate or prosecute any alcohol or drug abuse patient.[facility] the event this information is protected by the Federal Confidentiality of Alcohol and Drug Abuse Patient Records regulations: The Federal rules restrict any use of the information to criminally investigate or prosecute any alcohol or drug abuse patient.[facility]In the event this information is protected by the Federal Confidentiality of Alcohol and Drug Abuse Patient Records regulations: The Federal rules restrict any use of the information to criminally investigate or prosecute any alcohol or drug abuse patient.[facility]In the event this information is protected by the Federal Confidentiality of Alcohol and Drug Abuse Patient Records regulations: The Federal rules restrict any use of the information to criminally investigate or prosecute any alcohol or drug abuse patient.[facility]In the event this information is protected by the Federal Confidentiality of Alcohol and Drug Abuse Patient Records regulations: The Federal rules restrict any use of the information to criminally investigate or prosecute any alcohol or drug abuse patient.[facility]ronIn the event this information is protected by the Federal Confidentiality of Alcohol and Drug Abuse Patient Records regulations: The Federal rules restrict any use of the information to criminally investigate or prosecute any alcohol or drug abuse patient.[facility]ronIn the event this information is protected by the Federal Confidentiality of Alcohol and Drug Abuse Patient Records regulations: The Federal rules restrict any use of the information to criminally investigate or prosecute any alcohol or drug abuse patient.[facility]ronIn the event this information is protected by the Federal Confidentiality of Alcohol and Drug Abuse Patient Records regulations: The Federal rules restrict any use of the information to criminally investigate or prosecute any alcohol or drug abuse patient.[facility]ronIn the event this information is protected by the Federal Confidentiality of Alcohol and Drug Abuse Patient Records regulations: The Federal rules restrict any use of the information to criminally investigate or prosecute any alcohol or drug abuse patient.[facility]ronIn the event this information is protected by the Federal Confidentiality of Alcohol and Drug Abuse Patient Records regulations: The Federal rules restrict any use of the information to criminally investigate or prosecute any alcohol or drug abuse patient.[facility]ronIn the event this information is protected by the Federal Confidentiality of Alcohol and Drug Abuse Patient Records regulations: The Federal rules restrict any use of the information to criminally investigate or prosecute any alcohol or drug abuse patient.[facility]ronIn the event this information is protected by the Federal Confidentiality of Alcohol and Drug Abuse Patient Records regulations: The Federal rules restrict any use of the information to criminally investigate or prosecute any alcohol or drug abuse patient.[facility]ronIn the event this information is protected by the Federal Confidentiality of Alcohol and Drug Abuse Patient Records regulations: The Federal rules restrict any use of the information to criminally investigate or prosecute any alcohol or drug abuse patient.[facility]ronIn the event this information is protected by the Federal Confidentiality of Alcohol and Drug Abuse Patient Records regulations: The Federal rules restrict any use of the information to criminally investigate or prosecute any alcohol or drug abuse patient.[facility]ronIn the event this information is protected by the Federal Confidentiality of Alcohol and Drug Abuse Patient Records regulations: The Federal rules restrict any use of the information to criminally investigate or prosecute any alcohol or drug abuse patient.[facility] [facility] the event this information is protected by the Federal Confidentiality of Alcohol and Drug Abuse Patient Records regulations: The Federal rules restrict any use of the information to criminally investigate or prosecute any alcohol or drug abuse patient.[facility] [place] the event this information is protected by the Federal Confidentiality of Alcohol and Drug Abuse Patient Records regulations: The Federal rules restrict any use of the information to criminally investigate or prosecute any alcohol or drug abuse patient.[facility] [place]In the event this information is protected by the Federal Confidentiality of Alcohol and Drug Abuse Patient Records regulations: The Federal rules restrict any use of the information to criminally investigate or prosecute any alcohol or drug abuse patient.[facility] [place]In the event this information is protected by the Federal Confidentiality of Alcohol and Drug Abuse Patient Records regulations: The Federal rules restrict any use of the information to criminally investigate or prosecute any alcohol or drug abuse patient.[facility] [place]In the event this information is protected by the Federal Confidentiality of Alcohol and Drug Abuse Patient Records regulations: The Federal rules restrict any use of the information to criminally investigate or prosecute any alcohol or drug abuse patient.[facility] [place]In the event this information is protected by the Federal Confidentiality of Alcohol and Drug Abuse Patient Records regulations: The Federal rules restrict any use of the information to criminally investigate or prosecute any alcohol or drug abuse patient.[facility] [place]In the event this information is protected by the Federal Confidentiality of Alcohol and Drug Abuse Patient Records regulations: The Federal rules restrict any use of the information to criminally investigate or prosecute any alcohol or drug abuse patient.[facility] [place]In the event this information is protected by the Federal Confidentiality of Alcohol and Drug Abuse Patient Records regulations: The Federal rules restrict any use of the information to criminally investigate or prosecute any alcohol or drug abuse patient.[facility] [place]In the event this information is protected by the Federal Confidentiality of Alcohol and Drug Abuse Patient Records regulations: The Federal rules restrict any use of the information to criminally investigate or prosecute any alcohol or drug abuse patient.[facility] [place]In the event this information is protected by the Federal Confidentiality of Alcohol and Drug Abuse Patient Records regulations: The Federal rules restrict any use of the information to criminally investigate or prosecute any alcohol or drug abuse patient.[facility] [place]In the event this information is protected by the Federal Confidentiality of Alcohol and Drug Abuse Patient Records regulations: The Federal rules restrict any use of the information to criminally investigate or prosecute any alcohol or drug abuse patient.[facility] [place]In the event this information is protected by the Federal Confidentiality of Alcohol and Drug Abuse Patient Records regulations: The Federal rules restrict any use of the information to criminally investigate or prosecute any alcohol or drug abuse patient.[facility] [place]In the event this information is protected by the Federal Confidentiality of Alcohol and Drug Abuse Patient Records regulations: The Federal rules restrict any use of the information to criminally investigate or prosecute any alcohol or drug abuse patient.[facility] [place]In the event this information is protected by the Federal Confidentiality of Alcohol and Drug Abuse Patient Records regulations: The Federal rules restrict any use of the information to criminally investigate or prosecute any alcohol or drug abuse patient.[facility] [place]In the event this information is protected by the Federal Confidentiality of Alcohol and Drug Abuse Patient Records regulations: The Federal rules restrict any use of the information to criminally investigate or prosecute any alcohol or drug abuse patient.[facility] [place]In the event this information is protected by the Federal Confidentiality of Alcohol and Drug Abuse Patient Records regulations: The Federal rules restrict any use of the information to criminally investigate or prosecute any alcohol or drug abuse patient.[facility] [place]In the event this information is protected by the Federal Confidentiality of Alcohol and Drug Abuse Patient Records regulations: The Federal rules restrict any use of the information to criminally investigate or prosecute any alcohol or drug abuse patient.[facility] [place]In the event this information is protected by the Federal Confidentiality of Alcohol and Drug Abuse Patient Records regulations: The Federal rules restrict any use of the information to criminally investigate or prosecute any alcohol or drug abuse patient.[facility] [place]In the event this information is protected by the Federal Confidentiality of Alcohol and Drug Abuse Patient Records regulations: The Federal rules restrict any use of the information to criminally investigate or prosecute any alcohol or drug abuse patient.[facility] [place]In the event this information is protected by the Federal Confidentiality of Alcohol and Drug Abuse Patient Records regulations: The Federal rules restrict any use of the information to criminally investigate or prosecute any alcohol or drug abuse patient.[facility] [place]In the event this information is protected by the Federal Confidentiality of Alcohol and Drug Abuse Patient Records regulations: The Federal rules restrict any use of the information to criminally investigate or prosecute any alcohol or drug abuse patient.[facility] [place]In the event this information is protected by the Federal Confidentiality of Alcohol and Drug Abuse Patient Records regulations: The Federal rules restrict any use of the information to criminally investigate or prosecute any alcohol or drug abuse patient.[facility] [place]In the event this information is protected by the Federal Confidentiality of Alcohol and Drug Abuse Patient Records regulations: The Federal rules restrict any use of the information to criminally investigate or prosecute any alcohol or drug abuse patient.[facility] [place]In the event this information is protected by the Federal Confidentiality of Alcohol and Drug Abuse Patient Records regulations: The Federal rules restrict any use of the information to criminally investigate or prosecute any alcohol or drug abuse patient.[facility] [place]In the event this information is protected by the Federal Confidentiality of Alcohol and Drug Abuse Patient Records regulations: The Federal rules restrict any use of the information to criminally investigate or prosecute any alcohol or drug abuse patient.[facility] [place]In the event this information is protected by the Federal Confidentiality of Alcohol and Drug Abuse Patient Records regulations: The Federal rules restrict any use of the information to criminally investigate or prosecute any alcohol or drug abuse patient.[facility] [place]In the event this information is protected by the Federal Confidentiality of Alcohol and Drug Abuse Patient Records regulations: The Federal rules restrict any use of the information to criminally investigate or prosecute any alcohol or drug abuse patient.[facility] [place]In the event this information is protected by the Federal Confidentiality of Alcohol and Drug Abuse Patient Records regulations: The Federal rules restrict any use of the information to criminally investigate or prosecute any alcohol or drug abuse patient.[facility] [place]In the event this information is protected by the Federal Confidentiality of Alcohol and Drug Abuse Patient Records regulations: The Federal rules restrict any use of the information to criminally investigate or prosecute any alcohol or drug abuse patient.[facility] [place]In the event this information is protected by the Federal Confidentiality of Alcohol and Drug Abuse Patient Records regulations: The Federal rules restrict any use of the information to criminally investigate or prosecute any alcohol or drug abuse patient.[facility] [place]In the event this information is protected by the Federal Confidentiality of Alcohol and Drug Abuse Patient Records regulations: The Federal rules restrict any use of the information to criminally investigate or prosecute any alcohol or drug abuse patient.[facility] [place]In the event this information is protected by the Federal Confidentiality of Alcohol and Drug Abuse Patient Records regulations: The Federal rules restrict any use of the information to criminally investigate or prosecute any alcohol or drug abuse patient.[facility] [place]In the event this information is protected by the Federal Confidentiality of Alcohol and Drug Abuse Patient Records regulations: The Federal rules restrict any use of the information to criminally investigate or prosecute any alcohol or drug abuse patient.[facility] [place]In the event this information is protected by the Federal Confidentiality of Alcohol and Drug Abuse Patient Records regulations: The Federal rules restrict any use of the information to criminally investigate or prosecute any alcohol or drug abuse patient.[facility] [place]In the event this information is protected by the Federal Confidentiality of Alcohol and Drug Abuse Patient Records regulations: The Federal rules restrict any use of the information to criminally investigate or prosecute any alcohol or drug abuse patient.[facility] [place]In the event this information is protected by the Federal Confidentiality of Alcohol and Drug Abuse Patient Records regulations: The Federal rules restrict any use of the information to criminally investigate or prosecute any alcohol or drug abuse patient.[facility] [place]In the event this information is protected by the Federal Confidentiality of Alcohol and Drug Abuse Patient Records regulations: The Federal rules restrict any use of the information to criminally investigate or prosecute any alcohol or drug abuse patient.[facility] [place]In the event this information is protected by the Federal Confidentiality of Alcohol and Drug Abuse Patient Records regulations: The Federal rules restrict any use of the information to criminally investigate or prosecute any alcohol or drug abuse patient.[facility] [place]In the event this information is protected by the Federal Confidentiality of Alcohol and Drug Abuse Patient Records regulations: The Federal rules restrict any use of the information to criminally investigate or prosecute any alcohol or drug abuse patient.[facility] [place]In the event this information is protected by the Federal Confidentiality of Alcohol and Drug Abuse Patient Records regulations: The Federal rules restrict any use of the information to criminally investigate or prosecute any alcohol or drug abuse patient.[facility] [place]In the event this information is protected by the Federal Confidentiality of Alcohol and Drug Abuse Patient Records regulations: The Federal rules restrict any use of the information to criminally investigate or prosecute any alcohol or drug abuse patient.[facility] [place]In the event this information is protected by the Federal Confidentiality of Alcohol and Drug Abuse Patient Records regulations: The Federal rules restrict any use of the information to criminally investigate or prosecute any alcohol or drug abuse patient.[facility] [place]In the event this information is protected by the Federal Confidentiality of Alcohol and Drug Abuse Patient Records regulations: The Federal rules restrict any use of the information to criminally investigate or prosecute any alcohol or drug abuse patient.[facility] [place]In the event this information is protected by the Federal Confidentiality of Alcohol and Drug Abuse Patient Records regulations: The Federal rules restrict any use of the information to criminally investigate or prosecute any alcohol or drug abuse patient.[facility] [place]In the event this information is protected by the Federal Confidentiality of Alcohol and Drug Abuse Patient Records regulations: The Federal rules restrict any use of the information to criminally investigate or prosecute any alcohol or drug abuse patient.[facility] [place]In the event this information is protected by the Federal Confidentiality of Alcohol and Drug Abuse Patient Records regulations: The Federal rules restrict any use of the information to criminally investigate or prosecute any alcohol or drug abuse patient.[facility] [place]In the event this information is protected by the Federal Confidentiality of Alcohol and Drug Abuse Patient Records regulations: The Federal rules restrict any use of the information to criminally investigate or prosecute any alcohol or drug abuse patient.[facility] [place]In the event this information is protected by the Federal Confidentiality of Alcohol and Drug Abuse Patient Records regulations: The Federal rules restrict any use of the information to criminally investigate or prosecute any alcohol or drug abuse patient.[facility] [place]In the event this information is protected by the Federal Confidentiality of Alcohol and Drug Abuse Patient Records regulations: The Federal rules restrict any use of the information to criminally investigate or prosecute any alcohol or drug abuse patient.[facility] [place]In the event this information is protected by the Federal Confidentiality of Alcohol and Drug Abuse Patient Records regulations: The Federal rules restrict any use of the information to criminally investigate or prosecute any alcohol or drug abuse patient.[facility] [place]In the event this information is protected by the Federal Confidentiality of Alcohol and Drug Abuse Patient Records regulations: The Federal rules restrict any use of the information to criminally investigate or prosecute any alcohol or drug abuse patient.[facility] [place]In the event this information is protected by the Federal Confidentiality of Alcohol and Drug Abuse Patient Records regulations: The Federal rules restrict any use of the information to criminally investigate or prosecute any alcohol or drug abuse patient.[facility] [place]In the event this information is protected by the Federal Confidentiality of Alcohol and Drug Abuse Patient Records regulations: The Federal rules restrict any use of the information to criminally investigate or prosecute any alcohol or drug abuse patient.[facility] [place]In the event this information is protected by the Federal Confidentiality of Alcohol and Drug Abuse Patient Records regulations: The Federal rules restrict any use of the information to criminally investigate or prosecute any alcohol or drug abuse patient.[facility] [place]In the event this information is protected by the Federal Confidentiality of Alcohol and Drug Abuse Patient Records regulations: The Federal rules restrict any use of the information to criminally investigate or prosecute any alcohol or drug abuse patient.[facility] [place]In the event this information is protected by the Federal Confidentiality of Alcohol and Drug Abuse Patient Records regulations: The Federal rules restrict any use of the information to criminally investigate or prosecute any alcohol or drug abuse patient.[facility] [place]In the event this information is protected by the Federal Confidentiality of Alcohol and Drug Abuse Patient Records regulations: The Federal rules restrict any use of the information to criminally investigate or prosecute any alcohol or drug abuse patient.[facility] [place]In the event this information is protected by the Federal Confidentiality of Alcohol and Drug Abuse Patient Records regulations: The Federal rules restrict any use of the information to criminally investigate or prosecute any alcohol or drug abuse patient.[facility] [place]In the event this information is protected by the Federal Confidentiality of Alcohol and Drug Abuse Patient Records regulations: The Federal rules restrict any use of the information to criminally investigate or prosecute any alcohol or drug abuse patient.[facility] [place]In the event this information is protected by the Federal Confidentiality of Alcohol and Drug Abuse Patient Records regulations: The Federal rules restrict any use of the information to criminally investigate or prosecute any alcohol or drug abuse patient.[facility] [place]In the event this information is protected by the Federal Confidentiality of Alcohol and Drug Abuse Patient Records regulations: The Federal rules restrict any use of the information to criminally investigate or prosecute any alcohol or drug abuse patient.[facility] [place]In the event this information is protected by the Federal Confidentiality of Alcohol and Drug Abuse Patient Records regulations: The Federal rules restrict any use of the information to criminally investigate or prosecute any alcohol or drug abuse patient.[facility] [place]In the event this information is protected by the Federal Confidentiality of Alcohol and Drug Abuse Patient Records regulations: The Federal rules restrict any use of the information to criminally investigate or prosecute any alcohol or drug abuse patient.[facility] [place]In the event this information is protected by the Federal Confidentiality of Alcohol and Drug Abuse Patient Records regulations: The Federal rules restrict any use of the information to criminally investigate or prosecute any alcohol or drug abuse patient.[facility] [place]In the event this information is protected by the Federal Confidentiality of Alcohol and Drug Abuse Patient Records regulations: The Federal rules restrict any use of the information to criminally investigate or prosecute any alcohol or drug abuse patient.[facility] [place]In the event this information is protected by the Federal Confidentiality of Alcohol and Drug Abuse Patient Records regulations: The Federal rules restrict any use of the information to criminally investigate or prosecute any alcohol or drug abuse patient.[facility] [place]In the event this information is protected by the Federal Confidentiality of Alcohol and Drug Abuse Patient Records regulations: The Federal rules restrict any use of the information to criminally investigate or prosecute any alcohol or drug abuse patient.[facility] [place]In the event this information is protected by the Federal Confidentiality of Alcohol and Drug Abuse Patient Records regulations: The Federal rules restrict any use of the information to criminally investigate or prosecute any alcohol or drug abuse patient.[facility] [place]In the event this information is protected by the Federal Confidentiality of Alcohol and Drug Abuse Patient Records regulations: The Federal rules restrict any use of the information to criminally investigate or prosecute any alcohol or drug abuse patient.[facility] [place]In the event this information is protected by the Federal Confidentiality of Alcohol and Drug Abuse Patient Records regulations: The Federal rules restrict any use of the information to criminally investigate or prosecute any alcohol or drug abuse patient.[facility] [place]In the event this information is protected by the Federal Confidentiality of Alcohol and Drug Abuse Patient Records regulations: The Federal rules restrict any use of the information to criminally investigate or prosecute any alcohol or drug abuse patient.[facility] Care Teams (unrecognized sec tion and content) Team Status: Active Member Role Status Dates Dr. Melissa Lopes MD Primary Care Provider Active Team Status: Inactive Member Role Status Dates Dr. Melissa Lopes MD Primary Care Provider Active Start: May 30, 2024 End: May 30, 2024 Dr. Melissa Lopes MD Referring Provider Active Start: May 30, 2024 End: May 30, 2024 Dr. Kassidy Hazel MD Attending Provider Active Start: May 30, 2024 End: May 30, 2024 Team Status: Inactive Member Role Status Dates Dr. Melissa Lopes MD Primary Care Provider Active Start: June 10, 2024 End: June 10, 2024 Dr. Kassidy Hazel MD Attending Provider Active Start: June 10, 2024 End: June 10, 2024 Dr. Kassidy Hazel MD Referring Provider Active Start: June 10, 2024 End: June 10, 2024 Team Status: Inactive Member Role Status Dates Dr. Melissa Lopes MD Primary Care Provider Active Start: June 13, 2024 End: June 13, 2024 Dr. Kassidy Hazel MD Attending Provider Active Start: June 13, 2024 End: June 13, 2024 Dr. Kassidy Hazel MD Referring Provider Active Start: June 13, 2024 End: June 13, 2024 Team Status: Active Member Role Status Dates Dr. Melissa Lopes MD Primary Care Provider Active Start: June 13, 2024 Dr. Kassidy Hazel MD Attending Provider Active Start: June 13, 2024 Team Status: Inactive Member Role Status Dates Dr. Melissa Lopes MD Primary Care Provider Active Start: August 06, 2024 End: August 06, 2024 Dr. Melissa Lopes MD Referring Provider Active Start: August 06, 2024 End: August 06, 2024 RICARDO Gaspar Attending Provider Active Start: August 06, 2024 End: August 06, 2024 Team Status: Inactive Member Role Status Dates Dr. Melissa Lopes MD Primary Care Provider Active Start: August 22, 2024 End: August 22, 2024 RICARDO Gaspar Attending Provider Active Start: August 22, 2024 End: August 22, 2024 RICARDO Gaspar Referring Provider Active Start: August 22, 2024 End: August 22, 2024 Team Status: Active Member Role Status Dates Dr. Melissa Lopes MD Primary Care Provider Active Start: September 15, 2024 Dr. Mariana Clemons DO Emergency Provider Active Start: September 15, 2024 Dr. Stanislav Akers MD Admit Provider Active Start: September 15, 2024 Dr. Stanislav Akers MD Attending Provider Active Start: September 15, 2024 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 Relationship Specialty Start Date End Date Melissa Lopes MD [address] [place] [address] PCP - 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 Start Date End Date Melissa Lopes MD [address] [place] [address] PCP - 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 Start Date End Date Melissa Lopes MD [address] [place] [address] PCP - 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 Start Date End Date Melissa Lopes MD [address] [place] [address] PCP - 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 Start Date End Date Melissa Lopes MD [address] [place] [address] PCP - 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 Start Date End Date Melissa Lopes MD [address] [place] [address] PCP - 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 Start Date End Date Melissa Lopes MD [address] [place] [address] PCP - General Family Medicine 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 Start Date End Date Melissa Lopes MD [address] [place] [address] PCP - General Family Medicine 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 Start Date End Date Melissa Lopes MD [address] [place] [address] PCP - General Family Medicine 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 Start Date End Date Melissa Lopes MD [address] [place] [address] PCP - General Family Medicine 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 Start Date End Date Melissa Lopes MD [address] [place] [address] PCP - General Family Medicine 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 Gilbert Friend , DO Attending Provider Active Team Status: Inactive Member Role Status Dates Melissa Lopes Primary Care Provider Active Dr. Greg Hooekr MD Attending Provider, Referring Provider Active Team Status: Inactive Member Role Status Dates Melissa Lopes Primary Care Provider Active Dr. Moises Tapia MD Attending Provider, Referring Pro vider Active Team Status: Inactive Member Role Status Dates Melissa Lopes Primary Care Provider Active Dr. Vladimir Becerra DO Attending Provider, Referring Provider Active 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 Relationship Specialty Start Date End Date Melissa Lopes MD [address] [place] [address] PCP - General Family Medicine 06/15/21 Team Status: Active Member Role Status Dates Melissa WARD Family Provider Active Dr. Melissa Lopes MD Primary Care Provider Active Team Status: Inactive Member Role Status Dates Melissa WARD Primary Care Provider, Referring Pro vider Active Dr. Vladimir Becerra DO Attending Provider Active Team Status: Active Member Role Status Dates Dr. Melissa Lopes MD Primary Care Provider Active Dr. Theodore Mcdaniel MD Attending Provider Active Dr. Delfino Carrillo MD Referring Provider Active Team Status: Inactive Member Role Status Dates Melissa WARD Primary Care Provider Active Dr. Vladimir Becerra DO Attending Provider, Referring Provider Active Team Status: Inactive Member Role Status Dates Dr. Delfino Carrillo MD Attending Provider, Referring Pr ovider Active Dr. Melissa Lopes MD Primary Care Provider Active Team Status: Inactive Member Role Status Dates Dr. Melissa Lopes MD Primary Care Provider Active Dr. Delfino Carrillo MD Attending Provider, Referring Pr ovider Active 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 Relationship Specialty Start Date End Date Melissa Lopes MD [address] [place] [address] PCP - General Family Medicine 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 Start Date End Date Melissa Lopes MD [address] [place] [address] PCP - General Family Medicine 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 Start Date End Date Melissa Lopes MD [address] [place] [address] PCP - General Family Medicine 06/15/21 Shiv Lamar [address] [place] [address] Gastroenterology 07/12/20 Yahaira Quintero [address] [place] [address] [address] [place] [address] Orthopedics 02/07/18 Moises Tapia [address] [facility] [place] [address] Rheumatology 01/10/18 Vladimir Becerra DO [address] [place] [address] Gastroenterology 07/28/22 Theodore Mcdaniel [address] [place] [address] Cardiology 10/09/22 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 Relationship Specialty Start Date End Date Melissa Lopes MD [address] [place] [address] PCP - General Family Medicine 06/15/21 Shiv Lamar [address] [place] [address] Gastroenterology 07/12/20 Yahaira Quintero [address] [place] [address] 102 [place] [address] Orthopedics 02/07/18 Moises Tapia [address] [facility] [place] [address] Rheumatology 01/10/18 Vladimir Becerra DO [address] [place], [place] [address] Gastroenterology 07/28/22 Jonas, [place] S [address] [place], [place] [address] Cardiology 10/09/22 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 Relationship Specialty Start Date End Date Melissa Lopes MD [address] [place], [place] [address] PCP - General Family Medicine 06/15/21 Shiv Lamar [address] [place] [address] Gastroenterology 07/12/20 Yahaira Quintero [address] [facility] [address] [place] [address] Orthopedics 02/07/18 Moises Tapia [address] [facility] [address] Rheumatology 01/10/18 Vladimir Becerra DO [address] [place] [address] Gastroenterology 07/28/22 Jonas, Theodore S [address] [place], [place] [id number] Cardiology 10/09/22 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 Relationship Specialty Start Date End Date Melissa Lopes MD [address] [place] [address] PCP - General Family Medicine 06/15/21 Shiv Lamar [address] [place] [address] Gastroenterology 07/12/20 Clinic, Yahaira [address] [facility] [address] [place] [address] Orthopedics 02/07/18 Moises Tapia [address] [facility] [place] [address] Rheumatology 01/10/18 Vladimir Becerra DO [address] [place] [address] Gastroenterology 07/28/22 Theodore Mcdaniel [address] [place] [address] Cardiology 10/09/22 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 Relationship Specialty Start Date End Date Melissa Lopes MD [address] [place] [address] PCP - General Family Medicine 06/15/21 Shiv Lamar MD [address] [place] [address] Gastroenterology 07/12/20 Clinic, Crystal [facility] [address] [place] [address] Orthopedics 02/07/18 Moises Tapia [address] [facility] [place] [address] Rheumatology 01/10/18 Vladimir Becerra DO [address] [place] [address] Gastroenterology 07/28/22 Theodore Mcdaniel MD [address] [place] [address] Cardiology 10/09/22 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 Relationship Specialty Start Date End Date Melissa Lopes MD [address] [place] [address] PCP - General Family Medicine 06/15/21 Shiv Lamar MD [address] [place] [address] Gastroenterology 07/12/20 Yahaira Quintero [address] [facility] [address] [place] [address] Orthopedics 02/07/18 Moises Tapia [address] [place] [address] Rheumatology 01/10/18 Vladimir Becerra DO [address] [place] [address] Gastroenterology 07/28/22 Theodore Mcdaniel MD [address] [place] [address] Cardiology 10/09/22 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 Relationship Specialty Start Date End Date Melissa Lopes MD [address] [place] [address] PCP - General Family Medicine 06/15/21 Shiv Lamar MD [address] [place] [address] Gastroenterology 07/12/20 [facility], Yahaira [facility] [address] [place] [address] Orthopedics 02/07/18 Moises Tapia [address] [place] [address] Rheumatology 01/10/18 Vladimir Becerra DO [address] [place] [address] Gastroenterology 07/28/22 Theodore Mcdaniel MD [address] [facility] [address] [place] [address] Cardiology 10/09/22 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 Relationship Specialty Start Date End Date Melissa Lopes MD [address] [place] [address] PCP - General Family Medicine 06/15/21 Shiv Lamar MD [address] [facility] [address] [place] [address] Gastroenterology 07/12/20 Clinic, Yahaira [facility] 102 [place] [address] Orthopedics 02/07/18 Moises Tapia [address] [place] [address] Rheumatology 01/10/18 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 Relationship Specialty Start Date End Date Melissa Lopes MD [address] [place] [address] PCP - General Family Medicine 06/15/21 Shiv Lamar MD [address] [place] [address] Gastroenterology 07/12/20 ClinicYahaira [facility] [address] [place] [address] Orthopedics 02/07/18 Moises Tapia [address] [facility] [place] [address] Rheumatology 01/10/18 Vladimir Becerra DO [address] [place] [address] Gastroenterology 07/28/22 Theodore Mcdaniel MD [address] [place] [address] Cardiology 10/09/22 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 Relationship Specialty Start Date End Date Melissa Lopes MD [address] [place] [address] PCP - General Family Medicine 06/15/21 Shiv Lamar MD [address] [place] [address] Gastroenterology 07/12/20 ClinicYahaira [facility] [address] [place] [address] Orthopedics 02/07/18 Moises Tapia [address] [facility] [place] [address] Rheumatology 01/10/18 Vladimir Becerra DO [address] [place], [place] [address] Gastroenterology 07/28/22 Theodore Mcdaniel MD [address] [place] [address] Cardiology 10/09/22 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 Relationship Specialty Start Date End Date Melissa Lopes MD [address] [place] [address] PCP - General Family Medicine 06/15/21 Shiv Lamar MD [address] [place] [address] Gastroenterology 07/12/20 Yahaira Quintero [address] [facility] [address] [place] [address] Orthopedics 02/07/18 Moises Tapia [address] [facility] [address] Rheumatology 01/10/18 Vladimir Becerra DO [address] [place] [address] Gastroenterology 07/28/22 Theodore Mcdaniel MD [address] [place] [address] Cardiology 10/09/22 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 Relationship Specialty Start Date End Date Melissa Lopes MD [address] [place] [address] PCP - General Family Medicine 06/15/21 Shiv Lamar MD [address] [place] [address] Gastroenterology 07/12/20 Clinic, Yahaira [facility] [address] [place] [address] Orthopedics 02/07/18 Moises Tapia [address] [facility] [address] Rheumatology 01/10/18 Vladimir Becerra DO [address] [facility] [address] [place] [address] Gastroenterology 07/28/22 Theodore Mcdaniel MD [address] [facility] 3A [place] [address] Cardiology 10/09/22 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 Relationship Specialty Start Date End Date Melissa Lopes MD [address] [place] [address] PCP - General Family Medicine 06/15/21 Shiv Lamar MD [address] [facility] [address] [place] [address] Gastroenterology 07/12/20 Clinic, Yahaira [facility] [address] [place] [address] Orthopedics 02/07/18 Moises Tapia [address] [facility] [address] Rheumatology 01/10/18 Vladimir Becerra DO [address] [place], [place] [address] Gastroenterology 07/28/22 Theodore Mcdaniel MD [address] [place], [place] [address] Cardiology 10/09/22 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 Relationship Specialty Start Date End Date Melissa Lopes MD [address] [place], [place] [address]186 PCP - General Family Medicine 06/15/21 Shiv Lamar MD [address] [place] [address] Gastroenterology 07/12/20 Yahaira Quintero [address] [facility] [address] [place] [address] Orthopedics 02/07/18 Moises Tapia [address] [facility] [address] Rheumatology 01/10/18 Vladimir Becerra DO [address] [place] [address] Gastroenterology 07/28/22 Theodore Mcdaniel MD [address] [place] [address] Cardiology 10/09/22 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 Relationship Specialty Start Date End Date Melissa Lopes MD [address] [place], [place] 229656 PCP - General Family Medicine 06/15/21 Shiv Lamar MD [address] [place] [address] Gastroenterology 07/12/20 Clinic, [facility] [address] [place] [address] Orthopedics 02/07/18 Moises Tapia [address] [facility] [place] [address] Rheumatology 01/10/18 Vladimir Becerra DO [address] [place] [address] Gastroenterology 07/28/22 Theodore Mcdaniel MD [address] [place] [address] Cardiology 10/09/22 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 Relationship Specialty Start Date End Date Melissa Lopes MD [address] [place] [address] PCP - General Family Medicine 06/15/21 Shiv Lamar MD [address] [place] [address] Gastroenterology 07/12/20 Clinic, [place] [facility] [address] [place] [address] Orthopedics 02/07/18 Moises Tapia [address] [facility] [address] Rheumatology 01/10/18 Vladimir Becerra DO [address] [place] [address] Gastroenterology 07/28/22 Theodore Mcdaniel MD [address] [place] [address] Cardiology 10/09/22 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 Relationship Specialty Start Date End Date Melissa Lopes MD [address] [place] [address] PCP - General Family Medicine 06/15/21 Shiv Lamar MD [address] [place] [address] Gastroenterology 07/12/20 Yahaira Quintero [address] [facility] [address] [place] [address] Orthopedics 02/07/18 Moises Tapia [address] [facility] [place] [address] Rheumatology 01/10/18 Vladimir Becerra DO [address] [place] [address] Gastroenterology 07/28/22 Theodore Mcdaniel MD [address] [place] [address] Cardiology 10/09/22 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 Relationship Specialty Start Date End Date Melissa Lopes MD [address] [place], [place] [address] PCP - General Family Medicine 06/15/21 Shiv Lamar MD [address] [place] [address] Gastroenterology 07/12/20 Clinic, Crystal [address] [facility] [address] [place] [address] Orthopedics 02/07/18 Moises Tapia [address] [facility] [place] [address] Rheumatology 01/10/18 Vladimir Becerra DO [address] [place] [address] Gastroenterology 07/28/22 Theodore Mcdaniel MD [address] [place] [address] Cardiology 10/09/22 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 Relationship Specialty Start Date End Date Melissa Lopes MD [address] [place] [address] PCP - General Family Medicine 06/15/21 Shiv Lamar MD [address] [place] [address] Gastroenterology 07/12/20 Clinic, [facility] [address] [place] [address] Orthopedics 02/07/18 Moises Tapia [address] [facility] [address] Rheumatology 01/10/18 Vladimir Becerra DO [address] [place] [address] Gastroenterology 07/28/22 Theodore Mcdaniel MD [address] [place] [address] Cardiology 10/09/22 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 Relationship Specialty Start Date End Date Melissa Lopes MD [address] [place] [address] PCP - General Family Medicine 06/15/21 Shiv Lamar MD [address] [place] [address] Gastroenterology 07/12/20 Yahaira Quintero [address] [facility] 102 [place] [address] Orthopedics 02/07/18 Moises Tapia [address] [place] [address] Rheumatology 01/10/18 Vladimir Becerra DO [address] [place] [address] Gastroenterology 07/28/22 Theodore Mcdaniel MD [address] [place] [address] Cardiology 10/09/22 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 Relationship Specialty Start Date End Date Melissa Lopes MD [address] [place] [address] PCP - General Family Medicine 06/15/21 Shiv Lamar MD [address] [place] [address] Gastroenterology 07/12/20 Clinic, Yahaira [address] [facility] 102 [place] [address] Orthopedics 02/07/18 Moises Tapia [address] [place] [address] Rheumatology 01/10/18 Vladimir Becerra DO [address] [place] [address] Gastroenterology 07/28/22 Theodore Mcdaniel MD [address] [place] [address] Cardiology 10/09/22 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 Relationship Specialty Start Date End Date Melissa Lopes MD [address] [place] [address] PCP - General Family Medicine 06/15/21 Shiv Lamar MD [address] [place] [address] Gastroenterology 07/12/20 Clinic, Yahaira [address] [facility] 102 [place] [address] Orthopedics 02/07/18 Moises Tapia [address] [address] Rheumatology 01/10/18 Vladimir Becerra DO [address] [place] [address] Gastroenterology 07/28/22 Theodore Mcdaniel MD [address] [place] [address] Cardiology 10/09/22 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 Relationship Specialty Start Date End Date Melissa Lopes MD [address] [place] [address] PCP - General Family Medicine 06/15/21 Shiv Lamar MD [address] [facility] [address] [place] [address] Gastroenterology 07/12/20 [facility] [place] [address] [facility] [address] [place] [address] Orthopedics 02/07/18 Moises Tapia [address] [place] [address] Rheumatology 01/10/18 Vladimir Becerra DO [address] [place] [address] Gastroenterology 07/28/22 Theodore Mcdaniel MD [address] [place] [address] Cardiology 10/09/22 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 Relationship Specialty Start Date End Date Melissa Lopes MD [address] [place] [address] PCP - General Family Medicine 06/15/21 Shiv Lamar MD [address] [place] [address] Gastroenterology 07/12/20 Clinic, Yahaira [facility] [address] [place] [address] Orthopedics 02/07/18 Moises Tapia [address] [place] [address] Rheumatology 01/10/18 Vladimir Becerra DO [address] [place] [address] Gastroenterology 07/28/22 Theodore Mcdaniel MD [address] [place] [address] Cardiology 10/09/22 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 Relationship Specialty Start Date End Date Melissa Lopes MD [address] [place], [place] 249436 PCP - General Family Medicine 06/15/21 Shiv Lamar MD [address] [place] [address] Gastroenterology 07/12/20 Clinic, Y[facility]aira [facility] [address] [place] [address] Orthopedics 02/07/18 Moises Tapia [address] [place] [place] [address] Rheumatology 01/10/18 Vladimir Becerra DO [address] [place], [place] [address] Gastroenterology 07/28/22 Theodore Mcdaniel MD [address] [place] [address] Cardiology 10/09/22 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 Relationship Specialty Start Date End Date Melissa Lopes MD [address] [place] [address] PCP - General Family Medicine 06/15/21 Shiv Lamar MD [address] [place] [address] Gastroenterology 07/12/20 Yahaira Quintero [address] [facility] [address] [place] [address] Orthopedics 02/07/18 Moises Tapia [address] [place] [address] Rheumatology 01/10/18 Vladimir Becerra DO [address] [place] [address] Gastroenterology 07/28/22 Theodore Mcdaniel MD [address] [place] [address] Cardiology 10/09/22 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 Relationship Specialty Start Date End Date Melissa Lopes MD [address] [place], [place] 860376 PCP - General Family Medicine 06/15/21 Shiv Lamar MD [address] [place] [address] Gastroenterology 07/12/20 ClinicYahaira [address] [facility] [address] [place] [address] Orthopedics 02/07/18 Moises Tapia [address] [facility] [place] [address] Rheumatology 01/10/18 Vladimir Becerra DO [address] [facility] [address] [place] [address] Gastroenterology 07/28/22 Theodore Mcdaniel MD [address] [facility] [address] [place] [address] Cardiology 10/09/22 Catarina Fitch, POWDER ROOM ATTENDANT.TWISTHAND [address] [place] [id number] Psychiatry 05/05/24 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 Relationship Specialty Start Date End Date Melissa Lopes MD [address] [place] [address] PCP - General Family Medicine 06/15/21 Shiv Lamar MD [address] [facility] [address] [place] [address] Gastroenterology 07/12/20 Yahaira Quintero [address] [facility] [address] [place] [address] Orthopedics 02/07/18 Moises Tapia [address] [facility] [place] [address] Rheumatology 01/10/18 Vladimir Becerra DO [address] [place], [place] [address] Gastroenterology 07/28/22 Theodore Mcdaniel MD [address] [place], [place] [address] Cardiology 10/09/22 Catarina Fitch, POWDER ROOM ATTENDANT.TWISTHAND [address] [facility] [place] [address] Psychiatry 05/05/24 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 Relationship Specialty Start Date End Date Melissa Lopes MD [address] [place], [place] [address] PCP - General Family Medicine 06/15/21 Shiv Lamar MD [address] [place] [address] Gastroenterology 07/12/20 Yahaira Quintero [address] [facility] [address] [place] [address] Orthopedics 02/07/18 Moises Tapia [address] [place] [address] Rheumatology 01/10/18 Vladimir Becerra DO [address] [place], [place] [address] Gastroenterology 07/28/22 Theodore Mcdaniel MD [address] [place], [place] [address] Cardiology 10/09/22 Catarina Fitch POWDER ROOM ATTENDANT.TWISTHAND [address] [place] [address] Psychiatry 05/05/24 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 Relationship Specialty Start Date End Date Melissa Lopes MD [address] [place] [address] PCP - General Family Medicine 06/15/21 Shiv Lamar MD [address] [place] [address] Gastroenterology 07/12/20 Yahaira Quintero [address] [facility] [address] [place] [address] Orthopedics 02/07/18 Moises Tapia [address] [place] [address] Rheumatology 01/10/18 Vladimir Becerra DO [address] [facility] [address] [place] [address] Gastroenterology 07/28/22 Theodore Mcdaniel MD [address] [facility] [address] [place] [address] Cardiology 10/09/22 Catarina Fitch POWDER ROOM ATTENDANT.TWISTHAND [address] [place] [id number] Psychiatry 05/05/24 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 Relationship Specialty Start Date End Date Melissa Lopes MD [address] [place] [address] PCP - General Family Medicine 06/15/21 Shiv Lamar MD [address] [facility] [address] [place] [address] Gastroenterology 07/12/20 [facility], Yahaira [address] [facility] 102 [place] [address] Orthopedics 02/07/18 Moises Tapia [address] [place] [address] Rheumatology 01/10/18 Vladimir Becerra DO [address] [facility] [address] [place] [address] Gastroenterology 07/28/22 Theodore Mcdaniel MD [address] [facility] [place] [address] Cardiology 10/09/22 Catarina Fitch, POWDER ROOM ATTENDANT.[facility] [address] [place] [address] Psychiatry 05/05/24 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 Relationship Specialty Start Date End Date Melissa Lopes MD [address] [place] [address] PCP - General Family Medicine 06/15/21 Shiv Lamar MD [address] [facility] [address] [place] [address] Gastroenterology 07/12/20 Clinic, Yahaira [address] [facility] 102 [place] [address] Orthopedics 02/07/18 Moises Tapia [address] [place] [address] Rheumatology 01/10/18 Vladimir Becerra DO [address] [facility] [address] [place] [address] Gastroenterology 07/28/22 Theodore Mcdaniel MD [address] [facility] [address] [place] [address] Cardiology 10/09/22 Catarina Fitch, POWDER ROOM ATTENDANT.[facility] [address] [facility] [place] [address] Psychiatry 05/05/24 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 Relationship Specialty Start Date End Date Melissa Lopes MD [address] [place] [address] PCP - General Family Medicine 06/15/21 Shiv Lamar MD [address] [facility] [address] [place] [address] Gastroenterology 07/12/20 Yahaira Quintero [address] [facility] [address] [place] [address] Orthopedics 02/07/18 Moises Tapia [address] [place] [address] Rheumatology 01/10/18 Vladimir Becerra DO [address] [facility] [address] [place], [place] [address] Gastroenterology 07/28/22 Theodore Mcdaniel MD [address] [place], [place] [address] Cardiology 10/09/22 Catarina Fitch POWDER ROOM ATTENDANT.[employer] [address] [facility] [place] [address] Psychiatry 05/05/24 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 Relationship Specialty Start Date End Date Melissa Lopes MD [address] [place], [place] [address] PCP - General Family Medicine 06/15/21 Shiv Lamar MD [address] [place] [address] Gastroenterology 07/12/20 Yahaira Quintero [address] [facility] [address] [place] [address] Orthopedics 02/07/18 Moises Tapia [address] [place] [address] Rheumatology 01/10/18 Vladimir Becerra DO [address] [place] [address] Gastroenterology 07/28/22 Theodore Mcdaniel MD [address] [place], [place] [id number] Cardiology 10/09/22 Catarina Fitch APRN.[employer] [address] [facility] [place] [address] Psychiatry 05/05/24 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 Relationship Specialty Start Date End Date Melissa Lopes MD [address] [place] [address] PCP - General Family Medicine 06/15/21 Shiv Lamar MD [address] [facility] [address] [place] [address] Gastroenterology 07/12/20 Yahaira Quintero [address] [facility] [address] [place] [address] Orthopedics 02/07/18 Moises Tapia [address] [place] [address] Rheumatology 01/10/18 Vladimir Becerra DO [address] [facility] [address] [place] [address] Gastroenterology 07/28/22 Theodore Mcdaniel MD [address] [facility] [address] [place] [address] Cardiology 10/09/22 Catarina Fitch, POWDER ROOM ATTENDANT.[employer] [address] [place] [phone] Psychiatry 05/05/24 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 Relationship Specialty Start Date End Date Melissa Lopes MD [address] [place] [address] PCP - General Family Medicine 06/15/21 Shiv Lamar MD [address] [facility] [address] [place] [address] Gastroenterology 07/12/20 Yahaira Quintero [address] [facility] [address] [place] [address] Orthopedics 02/07/18 Moises Tapia [address] [place] [address] Rheumatology 01/10/18 Vladimir Becerra DO [address] [place] [address] Gastroenterology 07/28/22 Theodore Mcdaniel MD [address] [place], [place] [address] Cardiology 10/09/22 Catarina Fitch, POWDER ROOM ATTENDANT.[employer] [address] [facility] [place] [phone] Psychiatry 05/05/24 Team Status: Inactive Member Role Status Dates Dr. Melissa Lopes MD Primary Care Provider Active Start: May 06, 2024 End: May 06, 2024 Dr. Melissa Lopse MD Referring Provider Active Start: May 06, 2024 End: May 06, 2024 RICARDO Gaspar Attending Provider Active Start: May 06, 2024 End: May 06, 2024 Team Status: Inactive Member Role Status Dates Dr. Melissa Lopes MD Primary Care Provider Active Start: May 15, 2024 End: May 15, 2024 Dr. Melissa Lopes MD Referring Provider Active Start: May 15, 2024 End: May 15, 2024 Dr. Kassidy Hazel MD Attending Provider Active Start: May 15, 2024 End: May 15, 2024 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 Relationship Specialty Start Date End Date Melissa Lopes MD [address] [place], [place] [address] PCP - General Family Medicine 06/15/21 Shiv Lamar MD [address] [place] [address] Gastroenterology 07/12/20 Ingrid Yahaira [address] [facility] [address] [place] [address] Orthopedics 02/07/18 Moises Tapia [address] [place] [place] [address] Rheumatology 01/10/18 Vladimir Becerra DO [address] [facility] [address] [place] [address] Gastroenterology 07/28/22 Theodore Mcdaniel MD [address] [facility] [address] [place] [address] Cardiology 10/09/22 Catarina Fitch, POWDER ROOM ATTENDANT.[employer] [address] [place] [phone] Psychiatry 05/05/24 Team Status: Inactive Member Role Status Dates Dr. Melissa Lopes MD Primary Care Provider Active Start: September 15, 2024 End: September 16, 2024 Dr. Mariana Clemons DO Emergency Provider Active Start: September 15, 2024 End: September 16, 2024 Dr. Stanislav Akers MD Admit Provider Active Start: September 15, 2024 End: September 16, 2024 Dr. Stanislav Akers MD Other Provider Active Start: September 15, 2024 End: September 16, 2024 Dr. José Miguel Carlson DO Attending Provider Active Start: September 15, 2024 End: September 16, 2024 Team Status: Active Member Role Status Dates Dr. Melissa Lopes MD Primary Care Provider Active Start: September 15, 2024 Dr. Mariana Clemons DO Emergency Provider Active Start: September 15, 2024 Dr. Stanislav Akers MD Admit Provider Active Start: September 15, 2024 Dr. Stanislav Akers MD Attending Provider Active Start: September 15, 2024 Dr. Stanislav Akers MD Other Provider Active Start: September 15, 2024 Team Status: Active Member Role Status Dates Dr. Melissa Lopes MD Primary Care Provider Active Start: September 16, 2024 Dr. Mariana Clemons DO Emergency Provider Active Start: September 16, 2024 Dr. Stanislav Akers MD Admit Provider Active Start: September 16, 2024 Dr. Stanislav Akers MD Other Provider Active Start: September 16, 2024 Dr. José Miguel Carlson DO Attending Provider Active Start: September 16, 2024 Dr. José Miguel Carlson DO Other Provider Active Star t: September 16, 2024 Team Status: Active Member Role Status Dates Dr. Melissa Lopes MD Primary Care Provider Active Start: September 16, 2024 Dr. 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 Relationship Specialty Start Date End Date Melissa Lopes MD [address] [place] [address] PCP - General Family Medicine 06/15/21 Shiv Lamar MD [address] [address] Gastroenterology 07/12/20 Yahaira Quintero [address] [facility] [address] [place] [address] Orthopedics 02/07/18 Moises Tapia [address] [place] [address] Rheumatology 01/10/18 Vladimir Becerra DO [address] [place] [address] Gastroenterology 07/28/22 Theodore Mcdaniel MD [address] [place] [address] Cardiology 10/09/22 Catarina Fitch APRN.[employer] [address] [facility] [place] [address] Psychiatry 05/05/24 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 Relationship Specialty Start Date End Date Melissa Lopes MD [address] [place], [place] [address] PCP - General Family Medicine 06/15/21 Shiv Lamar MD [address] [place] [address] Gastroenterology 07/12/20 Yahaira Quintero [address] [facility] [address] [place] [address] Orthopedics 02/07/18 Moises Tapia [address] [place] [address] Rheumatology 01/10/18 Vladimir Becerra DO [address] [place], [place] [address] Gastroenterology 07/28/22 Theodore Mcdaniel MD [address] [place] [address] Cardiology 10/09/22 Catarina Fitch APRN.[employer] [address] [place] [address] Psychiatry 05/05/24 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 Relationship Specialty Start Date End Date Melissa Lopes MD [address] [place] [address] PCP - General Family Medicine 06/15/21 Shiv Lamar MD [address] [place] [address] Gastroenterology 07/12/20 Yahaira Quintero [address] [facility] [address] [place] [address] Orthopedics 02/07/18 Moises Tapia [address] [place] [address] Rheumatology 01/10/18 Vladimir Becerra DO [address] [place] [address] Gastroenterology 07/28/22 Theodore Mcdaniel MD [address] [place] [address] Cardiology 10/09/22 Catarina Fitch, POWDER ROOM ATTENDANT.[employer] [address] [place] [phone] Psychiatry 05/05/24 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 Relationship Specialty Start Date End Date Melissa Lopes MD [address] [place] [address] PCP - General Family Medicine 06/15/21 Shiv Lamar MD [address] [facility] [address] [place] [address] Gastroenterology 07/12/20 [facility] [address] [facility] [address] [place] [address] Orthopedics 02/07/18 Moises Tapia [address] [facility] [place] [place] [address] Rheumatology 01/10/18 Vladimir Becerra DO [address] [facility] [address] [place] [address] Gastroenterology 07/28/22 Theodore Mcdaniel MD [address] [facility] [address] [place] [address] Cardiology 10/09/22 Catarina Fitch, POWDER ROOM ATTENDANT.[employer] [address] [place] [address] Psychiatry 05/05/24 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 Relationship Specialty Start Date End Date Melissa Lopes MD [address] [place] [address] PCP - General Family Medicine 06/15/21 Shiv Lamar MD [address] [facility] [address] [place] [address] Gastroenterology 07/12/20 Yahaira Quintero [address] [facility] [address] [place] [address] Orthopedics 02/07/18 Moises Tapia [address] [place] [address] Rheumatology 01/10/18 Vladimir Becerra DO [address] [place] [address] Gastroenterology 07/28/22 Theodore Mcdaniel MD [address] [place] [address] Cardiology 10/09/22 Catarina Fitch, POWDER ROOM ATTENDANT.[facility] [address] [facility] [place] [phone] Psychiatry 05/05/24 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 Relationship Specialty Start Date End Date Melissa Lopes MD [address] [place] [address] PCP - General Family Medicine 06/15/21 Shiv Lamar MD [address] [facility] [address] [place] [address] Gastroenterology 07/12/20 [facility] [address] [facility] [address] [place] [address] Orthopedics 02/07/18 Moises Tapia [address] [place] [address] Rheumatology 01/10/18 Vladimir Becerra DO [address] [place] [address] Gastroenterology 07/28/22 Theodore Mcdaniel MD [address] [place] [address] Cardiology 10/09/22 Catarina Fitch APRN.[employer] [address] [facility] [place] [address] Psychiatry 05/05/24 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 Relationship Specialty Start Date End Date Melissa Lopes MD [address] [place] [address] PCP - General Family Medicine 06/15/21 Shiv Lamar MD [address] [facility] [address] [place] [address] Gastroenterology 07/12/20 Yahaira Quintero [address] [facility] [address] [place] [address] Orthopedics 02/07/18 Moises Tapia [address] [place] [address] Rheumatology 01/10/18 Vladimir Becerra DO [address] [place] [address] Gastroenterology 07/28/22 Theodore Mcdaniel MD [address] [place], [place] [address] Cardiology 10/09/22 Catarina Fitch APRN.[employer] [address] [facility] [place] [phone] Psychiatry 05/05/24 Team Status: Inactive Member Role Status Dates Dr. Melissa Lopes MD Primary Care Provider Active Start: October 16, 2024 End: October 16, 2024 Dr. Melissa Lopes MD Attending Provider Active Start: October 16, 2024 End: October 16, 2024 Dr. 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 Relationship Specialty Start Date End Date Melissa Lopes MD [address] [place], [place] [address] PCP - General Family Medicine 06/15/21 Shiv Lamar MD [address] [place] [address] Gastroenterology 07/12/20 [facility] [address] [facility] [address] [place] [address] Orthopedics 02/07/18 Moises Tapia [address] [place] [address] Rheumatology 01/10/18 Vladimir Becerra DO [address] [facility] [address] [place] [address] Gastroenterology 07/28/22 Theodore Mcdaniel MD [address] [facility] [address] [place] [address] Cardiology 10/09/22 Catarina Fitch, POWDER ROOM ATTENDANT.[employer] [address] [place] [phone] Psychiatry 05/05/24 Team Status: Inactive Member Role Status Dates Dr. Melissa Lopes MD Primary Care Provider Active Start: October 29, 2024 End: October 29, 2024 Dr. Melissa Lopes MD Referring Provider Active Start: October 29, 2024 End: October 29, 2024 RICARDO Gaspar Attending Provider Active Start: October 29, 2024 End: October 29, 2024 Team Status: Active Member Role Status Dates Dr. Melissa Lopes MD Primary Care Provider Active Start: October 29, 2024 RICARDO Gaspar Attending Provider Active Start: October 29, 2024 RICARDO Gaspar Referring Provider Active Start: October 29, 2024 Team Status: Inactive Member Role Status Dates Dr. 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 Relationship Specialty Start Date End Date Melissa Lopes MD [address] [place] [address] PCP - General Family Medicine 06/15/21 Shiv Lamar MD [address] [place] [address] Gastroenterology 07/12/20 Yahaira Quintero [address] [facility] [address] [place] [address] Orthopedics 02/07/18 Moises Tapia [address] [place] [address] Rheumatology 01/10/18 Vladimir Becerra DO [address] [place], [place] [address] Gastroenterology 07/28/22 Theodore Mcdaniel MD [address] [place], [place] [id number] Cardiology 10/09/22 Catarina Fitch, LYNDSEY.[employer] [address] [place] [phone] Psychiatry 05/05/24 Team Status: Inactive Member Role Status Dates Dr. Melissa Lopes MD Primary Care Provider Active Start: November 24, 2024 End: November 24, 2024 Dr. Melissa Lopes MD Referring Provider Active Start: November 24, 2024 End: November 24, 2024 Dr. Melissa King MD Attending Provider Active Start: November 24, 2024 End: November 24, 2024 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 Relationship Specialty Start Date End Date Melissa Lopes MD [address] [place], [place] [address] PCP - General Family Medicine 06/15/21 Shiv Lamar MD [address] [facility] [address] [place] [address] Gastroenterology 07/12/20 Yahaira Quintero [address] [facility] [address] [place] [address] Orthopedics 02/07/18 Moisse Tapia [address] [place] [address] Rheumatology 01/10/18 Vladimir Becerra DO [address] [place], [place] [address] Gastroenterology 07/28/22 Theodore Mcdaniel MD [address] [place] [address] Cardiology 10/09/22 Catarina Fitch, POWDER ROOM ATTENDANT.[employer] [address] [place] [address] Psychiatry 05/05/24 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 Relationship Specialty Start Date End Date Melissa Lopes MD [address] [place] [address] PCP - General Family Medicine 06/15/21 Shiv Lamar MD [address] [place] [address] Gastroenterology 07/12/20 Yahaira Quintero [address] [facility] [address] [place] [address] Orthopedics 02/07/18 Moises Tapia [address] [place] [address] Rheumatology 01/10/18 Vladimir Becerra DO [address] [place] [address] Gastroenterology 07/28/22 Theodore Mcdaniel MD [address] [place] [address] Cardiology 10/09/22 Catarina Fitch, POWDER ROOM ATTENDANT.[employer] [address] [place] [phone] Psychiatry 05/05/24 Goals (unrecognized section and content) Goals may be documented in a n alternate sectionGoals may be documented in an alternate sectionGoals may be documented in an alternate sectionGoals may be documented in an alternate sectionGoals may be documented in an alternate sectionGoals may be documented in an alternate sectionGoals may be documented in an alternate sectionGoals may be documented in an alternate section FOR RECORDS PERTAINING TO PATIENTS WHO ARE OR HAVE BEEN ENROLLED IN A CHEMICAL DEPENDENCY/SUBSTANCEABUSE PROGRAM, SOME INFORMATION MAY BE OMITTED. This clinical summary was aggregated from multiple sources. Caution should be exercised in using it in the provision of clinical care. This summary normalizes information from multiple sources, and as a consequence, information in this document may materially change the coding, format and clinical context of patient data. In addition, data may be omitted in some cases. CLINICAL DECISIONS SHOULD BE BASED ON THE PRIMARY CLINICAL RECORDS. [facility] [employer] [facility]. provides no warranty or guarantee of the accuracy or completeness of information in this document.
--- NOTE | 2024-12-06 15:30 | MRI_ITS ---
PROCEDURE: SPINE CERVICAL (ROUTINE) 12/06/2024 REASON FOR EXAM: NECK PAIN; L C5-C7 CERV RADICULOPATHY ON EMG/NCS TECHNIQUE: SPINE CERVICAL (ROUTINE) Multiplanar and multisequence images were obtained without IV contrast administration. COMPARISON: None FINDINGS: There is loss of the lordosis. There is grade 1 spondylolisthesis at C3-4, 0.3 cm. There is grade 1 spondylolisthesis at C4-5, 0.2 cm. There is Modic fibrotic type endplate change at C5-6. Vertebral body height is maintained. Vertebral body marrow signal is normal. The intervertebral disc signal shows desiccation. The facets are aligned. C2-C3: There is mild left paracentral disc and osteophyte protrusion. There is mild left lateral recess effacement. There is mild left foraminal narrowing secondary to disc protrusion and facet hypertrophy. There is no central canal stenosis. C3-C4: There is mild central and moderate right and left paracentral disc and osteophyte protrusion. There is moderate bilateral lateral recess stenosis. There is severe bilateral foraminal narrowing secondary to disc protrusion and facet hypertrophy. There is no central canal stenosis. C4-C5: Mild central and moderate right and left paracentral disc and osteophyte protrusion. There is mild bilateral lateral recess stenosis. There is severe bilateral foraminal narrowing secondary to disc protrusion and facet hypertrophy. There is no central canal stenosis. C5-C6: There is moderate central and right and left paracentral disc and osteophyte protrusion. There is mild bilateral lateral recess stenosis. There is moderate bilateral foraminal narrowing secondary to disc protrusion and facet hypertrophy. There is no central canal stenosis. C6-C7: There is mild central and moderate right and left paracentral disc and osteophyte protrusion. There is mild right and moderate left lateral recess stenosis. There is moderate bilateral foraminal narrowing secondary to disc protrusion and facet hypertrophy. There is no central canal stenosis. C7-T1: There is moderate right and left paracentral disc and osteophyte protrusion. There is moderate bilateral lateral recess stenosis. There is moderate bilateral foraminal narrowing secondary to disc protrusion and facet hypertrophy. There is no central canal stenosis. The visualized cord shows normal signal characteristics. Adjacent soft tissues are grossly unremarkable. MRI/Spine Cervical (Routine) IMPRESSION: There is loss of the lordosis. There is grade 1 spondylolisthesis at C3-4, 0.3 cm. There is grade 1 spondyloli sthesis at C4-5, 0.2 cm. There is no central canal stenosis, with lateral recess and foraminal narrowing . Reading Location[facility]
== END | disposition home or self-care (01) ==
LOC: MRI 15:01
PROVIDERS: PCP Family Medicine; Referring Provider Psychiatry & Neurology Neurology; Visit Provider Psychiatry & Neurology Neurology
DX: M54.12 Radiculopathy, cervical region (principal)
CPT/HCPCS: 72141

== ENCOUNTER → 2025-01-16 | Outpatient (CLI) | payer MEDICARE, SELFPAY ==
[2025-01-16 12:29] LABS: Vitamin B12 767 pg/mL (180-914)
[2025-01-19 14:08] LABS: Vitamin D 1,25-Dihydroxy 42.9 pg/mL (24.8-81.5)
[2025-01-22 11:08] LABS: Folate, Hemolysate Test 550.0 ng/mL (Not Estab.); Folate, RBC (Hct) Test 43.3 % (34.0-46.6); Folates, RBC Test 1270 ng/mL (>498); Vitamin B1, Thiamine 127.2 nmol/L (66.5-200.0)
== END | disposition home or self-care (01) ==
LOC: MTLAB 10:26
PROVIDERS: PCP Family Medicine; Referring Provider Psychiatry & Neurology Neurology; Visit Provider Psychiatry & Neurology Neurology
DX: G62.9 Polyneuropathy, unspecified (principal); R73.9 Hyperglycemia, unspecified; E03.9 Hypothyroidism, unspecified
CPT/HCPCS: 36415; 82607; 82652; 82747; 83036; 83883; 84425; 84439; 84443; 85014

== ENCOUNTER → 2025-01-29 | Outpatient (CLI) | payer MEDICARE, SELFPAY ==
--- NOTE | 2025-01-29 08:50 | RAD_ITS ---
PROCEDURE: ABDOMEN SINGLE VIEW 01/29/2025 REASON FOR EXAM: CONSTIPATION TECHNIQUE: ABDOMEN SINGLE VIEW COMPARISON: 10/29/2024 FINDINGS: LUNG BASES: Lung bases clear where seen. BOWEL: The bowel gas pattern is unremarkable. No bowel obstruction. PERITONEUM/SOFT TISSUES: No appreciable free air. No abnormal calcifications projected over the region of the kidneys. Nonspecific rounded 5.0 mm rim-calcification over the right lower abdomen, possible soft tissue injection granuloma. Right upper abdominal cholecystectomy clips. BONES: No acute osseous abnormality. Degenerative changes of the spine. Partially imaged hip prostheses bilaterally. Implanted neurostimulator device on the right with epidural electrode tip at the T9 level. RAD/Abdomen Single View IMPRESSION: No acute abnormality. Reading Location: [id number]
== END | disposition home or self-care (01) ==
LOC: RAD 08:38
PROVIDERS: PCP Family Medicine; Referring Provider Student in an Organized Health Care Education/Training Program; Visit Provider Student in an Organized Health Care Education/Training Program
DX: K59.00 Constipation, unspecified (principal)
CPT/HCPCS: 74018

== ENCOUNTER → 2025-03-02 | Outpatient (CLI) | payer MEDICARE, SELFPAY ==
[2025-03-05 15:08] LABS: Albumin 3.4 g/dL (2.9-4.4); Gamma Globulin 0.7 g/dL (0.4-1.8); Immunoglobulin A 129 mg/dL (64-422); Immunoglobulin G 774 mg/dL (586-1602); Immunoglobulin M 47 mg/dL (26-217); PROEL- TOTAL PROTEIN 6.0 g/dL (6.0-8.5)
== END | disposition home or self-care (01) ==
LOC: MTLAB 13:24
PROVIDERS: PCP Family Medicine; Referring Provider Psychiatry & Neurology Neurology; Visit Provider Psychiatry & Neurology Neurology
DX: G57.90 Unspecified mononeuropathy of unspecified lower limb (principal)
CPT/HCPCS: 36415; 82784; 84165; 86334; 86335

== ENCOUNTER → 2025-05-20 | Outpatient (CLI) | payer MEDICARE, SELFPAY ==
[2025-05-23 03:07] LABS: Calprotectin, Stool 98 ug/g (0-120)
== END | disposition home or self-care (01) ==
LOC: LABSPEC 12:33
PROVIDERS: Student in an Organized Health Care Education/Training Program; PCP Family Medicine; Referring Provider Internal Medicine Gastroenterology; Visit Provider Internal Medicine Gastroenterology
DX: R19.5 Other fecal abnormalities (principal)
CPT/HCPCS: 83993